=== PATIENT | male | born 1950 | race Caucasian/White ===

== ENCOUNTER 2024-02-11 09:53 | Outpatient (RCR) | payer MEDICARE, SELFPAY | END 2024-03-16 12:06 | disposition home or self-care (01) | LOC: OT 09:53 | PROVIDERS: PCP Family Medicine; Visit Provider Family Medicine | DX: I89.0 Lymphedema, not elsewhere classified (principal) | CPT/HCPCS: 97140; 97166; 97530 ==

== ENCOUNTER 2025-03-08 13:51 | Outpatient (RCR) | payer MEDICARE, SELFPAY | END 2025-06-02 13:58 | disposition home or self-care (01) | LOC: OT 13:51 | PROVIDERS: PCP Family Medicine; Visit Provider Nurse Practitioner Family | DX: I89.0 Lymphedema, not elsewhere classified (principal); L03.115 Cellulitis of right lower limb | CPT/HCPCS: 97140; 97167 ==

== ENCOUNTER 2025-08-12 14:03 | Inpatient (IN) | payer MEDICARE, SELFPAY ==
--- OUTSIDE RECORDS SUMMARY | 2025-08-09 13:30 | XMS_ITS | Encounter Summary ---
Author Organization [facility] Address [address] [facility] [place] [address] Care Team Providers Care Counselor Manager Name Role Phone Justino Zhang MD Primary Care Provider [phone] Reason for Visit * Reason Comments Foot Callouses Established patient presents today for concerns of continued pain with callus on left foot. Patient still taking antibiotics for cellulitis. Encounter Details Date Type Department Care Team (Late st Contact Info) Description 08/09/2025 1:30 PM EDT Office Visit [facility] [address] [place] [address] Zana Dahl, DPTaj [address] [place], [place] [id number] Plantar wart, left foot (Primary Dx); Acquired keratoderma; Left foot pain; Difficulty walking Social History Tobacco Use Types Packs/Day Years Used Date Smoking Tobacco: Never Smokeless Tobacco: Never Tobacco Cessation:Counseling Given: Not Answered Alcohol Use Standard Drinks/Week Comments Not Currently 0 (1 standard drink = 0.6 oz pur e alcohol) Sex and Gender Information Value Date Recorded Sex Assigned at Not on file Legal Sex Male 7:23 PM EDT Gender Identity Not on file Sexual Orientation Not on file documented as of this encounter Last Filed Vital Signs Vital Sign Reading Time Taken Comments Blood Pressure - - Pulse - - Temperature - - Respiratory Rate - - Oxygen Saturation - - Inhaled Oxygen Concentration - - Weight 169 kg (373 lb) 08/09/2025 1:46 PM EDT Height 182.9 cm (6') 08/09/2025 1:46 PM EDT Body Mass Index 50.59 08/09/2025 1:46 PM EDT documented in this encounter Patient Instructions * Patient Instructions* Zana Dahl DPM - 08/09/2025 1:30 PM EDT As noted documented in this encounter Progress Notes * Zana Dahl DPM - 08/09/2025 1:30 PM EDT Images from the original note were not included. Subjective Patient ID: Royce Arizmendi is a 75 y.o. male who presents for Foot Callouses (Established patient presents today for concerns of continued pain with callus on left foot. Patient still taking antibiotics for cellulitis. ). HPI Chief complaint: Progressively painful recurrent corn plantar surface of the left heel. About 2 weeks duration, impacting ADLs and his ability to walk comfortably; to the point of a notable limp. Denies precipitating injury or trauma. Denies bleeding or drainage. Progressive symptoms again described as like walking on a stone ; not quite as sharp as before. Denies streaking or constitutional symptoms. Review of Systems Constitutional: Negative for activity change and appetite change. Respiratory: Negative for chest tightness and shortness of breath. Cardiovascular: Negative for chest pain. Endocrine: Negative for cold intolerance and heat intolerance. Musculoskeletal: Positive for arthralgias and gait problem. Skin: Negative for color change and wound. Allergic/Immunologic: Negative for immunocompromised state. Neurological: Negative for weakness and numbness. Hematological: Does not bruise/bleed easily. Psychiatric/Behavioral: Negative for agitation and behavioral problems. Medications Current Outpatient Medications: atorvastatin (Lipitor) 10 MG tablet, Take 10 mg by mouth at bedtime, Disp: , Rfl: ferrous sulfate 325 (65 Fe) MG tablet, Take 325 mg by mouth at bedtime, Disp: , Rfl: furosemide (Lasix) 40 MG tablet, Take 40 mg by mouth Daily, Disp: , Rfl: nortriptyline (Pamelor) 75 MG capsule, Take 75 mg by mouth 1 (one) time each day at the same time, Disp: , Rfl: omeprazole (PriLOSEC) [address] capsule, Take 20 mg by mouth at bedtime, Disp: , Rfl: pramipexole (Mirapex) 1.5 MG tablet, Take 1.5 mg by mouth in the morning and 1.5 mg in the evening and 1.5 mg before bedtime., Disp: , Rfl: Allergies Cephalexin Past Surgical History Past Surgical History: Procedure Laterality Date CT ANGIOGRAM HEART CORONARY 05/25/2024 CT ANGIOGRAM TAVR 05/25/2024 CYST REMOVAL 02/10/2025 forehead HERNIA REPAIR 2020 IR JOINT ASPIRATION Left three KNEE ARTHROSCOPY W/ LASER 2007 TONSILLECTOMY TOTAL KNEE ARTHROPLASTY Right 07/14/2019 NWO TOTAL KNEE ARTHROPLASTY Left LT TKA- STEPANIC TOTAL KNEE ARTHROPLASTY Left 05/09/2024 Family History Family History Problem Relation Name Age of Onset Pulmonary fibrosis Mother Stroke Father Lung disease Other Objective Physical Exam Constitutional: General: He is not in acute distress. Appearance: He is obese. HENT: Head: Normocephalic and atraumatic. Cardiovascular: Pulses: Normal pulses. Comments: 3+ pitting edema bilateral lower extremities. Pulmonary: Effort: Pulmonary effort is normal. No respiratory distress. Musculoskeletal: Cervical back: Neck supple. Comments: No obvious muscle deficits. No significant pedal deformities. Skin: Capillary Refill: Capillary refill takes less than 2 seconds. 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 Focused exam left heel: Well-defined, prominent hyperkeratotic, nucleated PPD/verrucoid lesion; located central plantar surface of the heel. Acutely tender to direct and lateral pressure; locally inflamed, non-fluctuant. Unremarkable for foreign body, pigment or ulcerative changes. There remains diffuse keratosis along the plantar aspect of both heels. Neurological: Mental Status: He is alert. Comments: No loss of protective sensation, gross sensation intact. Psychiatric: Mood and Affect: Mood normal. Behavior: Behavior normal. Assessment/Plan No diagnosis found. 1. Symptomatic PPD/verrucoid lesion left heel as described. 2. Endoprosthesis bilateral knees. 3. Chronic, stable lymphedema both lower extremities. 4. Status post revisional endoprosthesis right knee. 5. Currently on oral antibiotic therapy for cellulitis of the lower extremities. Review of clinical findings, differential diagnosis of symptomatic lesion, etiology and contributing/aggravating factors, response to date, treatment strategy, rationale and objectives. Left foot: Aseptic technique: # 15 scalpel: Sharp debridement and enucleation of symptomatic PPD/verrucoid lesion as described. Dressing and pressure relief padding intact, clean and dry 3 days. Offloading: Modified Powerstep orthotic. Patient noted distinct relief upon leaving the clinic. Encourage compliance with Amlactin therapy and urea cream 40% daily. Discourage any barefoot walking. Follow up: 2 weeks. Procedure: LEFT FOOT: Aseptic technique: # 15 scalpel: Sharp debridement and enucleation of symptomatic PPD/verrucoid lesion; to the level of dermal bleeding; excising deeply nucleated porokeratotic core; reducing direct and indirect pressure and providing favorable symptom relief. Phenol hemostasis/chemo cautery. 60% salicylic acid packing followed by occlusive dressing with pressure relief padding. Well tolerated. This note was created with the assistance of a speech recognition program. While intending to generate a timely document that accurately reflects the content of the visit, no guarantee can be provided that every grammatical or spelling mistake has been or will be identified or corrected. Thank you for your understanding. Zana Dahl DPM documented in this encounter Plan of Treatment Upcoming Encounters Date Type Department Care Team (Late st Contact Info) Description 08/24/2025 1:45 PM EDT Office Visit [facility] [address] [place] [phone] Zana Dahl DPM [address] [place] [address] 09/19/2025 9:30 AM EST [facility] [address] [place] [phone] Zana Dahl DPM [address] [place], [place] [phone] documented as of this encounter Visit Diagnoses Diagnosis Plantar wart, left foot- Primary Plantar wart Acquired keratoderma Left foot pain Pain in soft tissues of limb Difficulty walking Difficulty in walking documented in this encounter Care Teams Counselor Manager Relationship Specialty Start Date End Date Justino Zhang MD [address] [place] [address] PCP - General Family Medicine 07/11/25 documented as of this encounter
[2025-08-12 14:07] VITALS: BP 136/86; PULSE 90; TEMP 36.6; O2SAT 96; BMI 48.8
--- NOTE | 2025-08-12 14:40 | XR_ITS ---
The [address] [address] Patient Name: AMY DELANEY MRN: [id number] date: 1950 Sex: M Assigned Patient Location: ED.MAIN Current Patient Location: ED.MAIN Accession/Order Number: [id number] Exam Date: 08/12/2025 15:15 Report Date: 08/12/2025 15:52 At the request of: EPHRAIM TRIVEDI Procedure: XR foot LT min 3V LEFT ANKLE - 3 views, left tib-fib 2 views, left foot 3 views CLINICAL HISTORY: Left leg cellulitis from knee to foot for one month COMPARISON: None FINDINGS: Left tib-fib: Diffuse soft tissue swelling. No soft tissue gas. Partially visualized left TKA without radiographic complication. Left ankle: Diffuse soft tissue swelling is present. Ankle mortise appears intact. No acute bony process. Left foot: Diffuse soft tissue swelling is present. No acute bony process is seen. Hallux valgus deformity of the first digit. There is associated degenerative change. Plantar spurring. XR/XR foot LT min 3V IMPRESSION: DIFFUSE SOFT TISSUE SWELLING INVOLVING THE LEFT LOWER LEG EXTENDING INTO THE FOOT CONSISTENT WITH THE HISTORY OF CELLULITIS. NO RADIOPAQUE FOREIGN BODY OR DEFINITIVE SOFT TISSUE GAS. NO ACUTE BONY PROCESS. Impression dictated by: Casey Grant Jr., D.O. 08/12/2025 3:52 PM Dictation Location: [place] [address] Electronically authenticated by: [id number] Y Date: 08/12/2025 15:52
--- NOTE | 2025-08-12 14:40 | XR_ITS ---
The [address] [address] Patient Name: AMY DELANEY MRN: [id number] date: 1950 Sex: M Assigned Patient Location: ED.MAIN Current Patient Location: ED.MAIN Accession/Order Number: [id number] Exam Date: 08/12/2025 15:15 Report Date: 08/12/2025 15:52 At the request of: EPHRAIM TRIVEDI Procedure: XR foot LT min 3V LEFT ANKLE - 3 views, left tib-fib 2 views, left foot 3 views CLINICAL HISTORY: Left leg cellulitis from knee to foot for one month COMPARISON: None FINDINGS: Left tib-fib: Diffuse soft tissue swelling. No soft tissue gas. Partially visualized left TKA without radiographic complication. Left ankle: Diffuse soft tissue swelling is present. Ankle mortise appears intact. No acute bony process. Left foot: Diffuse soft tissue swelling is present. No acute bony process is seen. Hallux valgus deformity of the first digit. There is associated degenerative change. Plantar spurring. XR/XR tibia fibula LT 2V IMPRESSION: DIFFUSE SOFT TISSUE SWELLING INVOLVING THE LEFT LOWER LEG EXTENDING INTO THE FOOT CONSISTENT WITH THE HISTORY OF CELLULITIS. NO RADIOPAQUE FOREIGN BODY OR DEFINITIVE SOFT TISSUE GAS. NO ACUTE BONY PROCESS. Impression dictated by: Casey Grant Jr., D.O. 08/12/2025 3:52 PM Dictation Location: [place] [address] Electronically authenticated by: [id number] Y Date: 08/12/2025 15:52
--- NOTE | 2025-08-12 14:40 | XR_ITS ---
The [address] [address] Patient Name: AMY DELANEY MRN: [id number] date: 1950 Sex: M Assigned Patient Location: ED.MAIN Current Patient Location: ED.MAIN Accession/Order Number: [id number] Exam Date: 08/12/2025 15:15 Report Date: 08/12/2025 15:52 At the request of: EPHRAIM TRIVEDI Procedure: XR foot LT min 3V LEFT ANKLE - 3 views, left tib-fib 2 views, left foot 3 views CLINICAL HISTORY: Left leg cellulitis from knee to foot for one month COMPARISON: None FINDINGS: Left tib-fib: Diffuse soft tissue swelling. No soft tissue gas. Partially visualized left TKA without radiographic complication. Left ankle: Diffuse soft tissue swelling is present. Ankle mortise appears intact. No acute bony process. Left foot: Diffuse soft tissue swelling is present. No acute bony process is seen. Hallux valgus deformity of the first digit. There is associated degenerative change. Plantar spurring. XR/XR ankle LT min 3V IMPRESSION: DIFFUSE SOFT TISSUE SWELLING INVOLVING THE LEFT LOWER LEG EXTENDING INTO THE FOOT CONSISTENT WITH THE HISTORY OF CELLULITIS. NO RADIOPAQUE FOREIGN BODY OR DEFINITIVE SOFT TISSUE GAS. NO ACUTE BONY PROCESS. Impression dictated by: Casey Grant Jr., D.O. 08/12/2025 3:52 PM Dictation Location: [place] [address] Electronically authenticated by: [id number] Y Date: 08/12/2025 15:52
--- NOTE | 2025-08-12 14:43 | ED_ITS ---
HPI - Extremity Problem General Chief complaint: Extremity Problem, Nontraumatic Stated complaint: Cellulitis Time Seen by Provider: 08/12/25 14:32 Source: patient Mode of arrival: Wheelchair History of Present Illness HPI Narrative: 75-year-old male with history of chronic lymphedema and recurrent lower extremity infections presents with increased pain, swelling, redness, and foul odor of the left lower extremity. He has an open wound on the plantar surface of the left heel after callus removal by his alteration hand 2 days ago. He reports worsening pain compared to baseline and foul-smelling drainage. He has been taking doxycycline for the past week without improvement. He denies fever, chills, chest pain, or shortness of breath. He is ambulatory but with increased pain. Pertinent PMH: Lymphedema (secondary to knee replacement), GERD, hyperlipidemia Related Data Home Medications ?Medication ?Instructions ?Recorded ?Confirmed atorvastatin 10 mg tablet 10 mg PO DAILY 08/12/2507/19 omeprazole 20 mg capsule,delayed 20 mg PO DAILY 08/12/25 release pramipexole 1.5 mg tablet,extended 3 mg PO DAILY 08/1208/12/25 release 24 hr (Mirapex ER) trazodone 150 mg tablet 150 mg PO DAILY 08/12/25 Allergies Allergy/AdvReac Type Severity Reaction Status Date / Time No Known Drug Allergies Allergy Verified 08/12/25 14:13 [facility] Medical History (Updated 08/12/25 @ 17:29 by SHIKHA BARTHOLOMEW) High cholesterol ?E78.00 - Pure hypercholesterolemia, unspecified (ICD-10) GERD (gastroesophageal reflux disease) ?K21.9 - Gastro-esophageal reflux disease without esophagitis (ICD-10) Restless leg ?G25.81 - Restless legs syndrome (ICD-10) Surgical History (Updated 08/12/25 @ 18:30 by Evette Sanchez) History of bilateral knee replacement ?Z96.653 - Presence of artificial knee joint, bilateral (ICD-10) Family History (Updated 08/12/25 @ 18:31 by Evette Sanchez) Father Family history of stroke Brother Family history of cancer Social History (Updated 08/12/25 @ 18:33 by Evette Sanchez) Within the past year, how often did you have a drink containing alcohol: never Score interpretation: A score less than 4 is consistent with normal alcohol consumption. Smoking status: Never smoker Non-prescribed substance use: denies use Highest level of school completed/degree received: high school graduate Are you now , , , , never or living with a partner: In a typical week, how many times do you talk on the telephone with family, friends, or neighbors: 3 or more times per week How often do you get together with friends or relatives: 3 or more times per week How often do you attend quaker or samaritan services: 4 or more times per year Do you belong to any clubs or organizations such as quaker groups unions, fraternal or athletic groups, or school groups: yes Total score: 4 Score interpretation: A score of greater than or equal to 2 indicates the lowest level of social isolation. Little interest or pleasure in doing things: not at all Feeling down, depressed, or hopeless: not at all Feel stressed/tense/nervous/anxious/difficulty sleeping: not at all Exam Narrative Exam Narrative: Physical Exam (Exam) General Appearance: obese male who is non toxic appearing. Alert and oriented in no acute distress. He does have a foul odor coming from his wound on his lower extremity. Cardiovascular: Regular rate and rhythm with a systolic murmur. Respiratory: Breath sounds normal, clear to auscultation. Abdomen: obese abdomen. Extremities: lymphedema bilaterally, LLE has multiple superficial area that are red. His lower extremity on the left side from mid tibial area go the foot is read and inflamed and appears cellulitic. Edema, pulses, temperature Neurological:No neurological deficiet Mental status: Normal Mentation, pleasant and interactive. Skin: cellulitic appearing LLE. Open wound on bottom of left foot secondary to a callus removal (culture obtained), foul smelling odor. Constitutional Vital Signs, click to edit/add: Last Vital Signs Temp 97.5 F L 08/12/25 18:34 Pulse 80 08/12/25 18:34 Resp 18 08/12/25 18:34 BP 139/90 08/12/25 18:34 Pulse Ox 97 08/12/25 18:34 O2 Del Method Room Air 08/12/25 18:34 Course Vital Signs Vital signs: Vital Signs Temperature 97.9 F 08/12/25 14:07 Pulse Rate 90 08/12/25 14:07 Respiratory Rate 20 08/12/25 14:07 Blood Pressure 136/86 08/12/25 14:07 Pulse Oximetry 96 08/12/25 14:07 Oxygen Delivery Method Room Air 08/12/25 14:07 Temperature 97.5 F L 08/12/25 18:34 Pulse Rate 80 08/12/25 18:34 Respiratory Rate 18 08/12/25 18:34 Blood Pressure 139/90 08/12/25 18:34 Pulse Oximetry 97 08/12/25 18:34 Oxygen Delivery Method Room Air 08/12/25 18:34 MDM - Extremity (Nontraumatic) MDM Narrative Medical decision making narrative: Diagnostics: * Labs: WBC 7.9, ESR 101 (elevated), CRP 2.18 (elevated) * Imaging: * X-ray LLE: Diffuse soft tissue swelling of LLE extending to foot, consistent with cellulitis. No radiopaque foreign body, no gas, no acute bony abnormality. * Venous Doppler: Negative for DVT ED Course: * IV Zosyn 3.375 g given * IV Vancomycin 1 g given * Pain controlled in ED * Dressing replaced after eval, will need changed inpatient course.Wound culture obtained. MDM: This is a 75-year-old male with chronic lymphedema presenting with worsening cellulitis of the left lower extremity and an open heel wound. He has failed outpatient doxycycline therapy. Labs show elevated inflammatory markers, but no leukocytosis. Imaging negative for gas or bony involvement, but clinical concern remains for deeper infection (possible early osteomyelitis). Given history of recurrent infections, lymphedema, open wound with foul odor, and failed outpatient treatment, IV broad-spectrum antibiotics were initiated and admission arranged for continued IV antibiotics, wound care, and close monitoring. Assessment/Diagnosis: * Cellulitis ? left lower extremity * Open wound ? plantar heel, left foot * Chronic lymphedema ? bilateral lower extremities * Failed outpatient treatment of cellulitis Plan / Disposition: * Admit to hospitalist service (Dr. Adame) in stable condition * Continue IV antibiotics (Zosyn + Vancomycin) * Wound care consult for evaluation of plantar wound * Monitor for signs of systemic infection or progression Lab Data Labs: Lab Results 08/12/25 Range/Units 14:45 WBC 7.9 (4.0-11.0) 10^3/uL RBC 4.55 L (4.70-6.10) 10^6/uL Hgb 12.3 L (14.0-18.0) g/dL Hct 38.7 L (42.0-54.0) % MCV 85.1 (80.0-94.0) fL MCH 27.0 (25.9-34.0) pg MCHC 31.8 (29.9-35.2) g/dL RDW 16.6 H (11.0-15.0) % Plt Count 240 (150-450) 10^3/uL MPV 8.2 L (9.5-13.5) fL Neut % (Auto) 73.5 (43.0-75.0) % Lymph % (Auto) 16.5 L (20.5-60.0) % [place] % (Auto) 6.0 (1.7-12.0) % Eos % (Auto) 3.1 (0.9-7.0) % Baso % (Auto) 0.5 (0.2-2.0) % Neut # (Auto) 5.8 (1.4-6.5) 10^3/uL Lymph # (Auto) 1.3 (1.2-3.8) 10^3/uL [place] # (Auto) 0.5 (0.3-0.8) 10^3/uL Eos # (Auto) 0.3 (0.0-0.7) 10^3/uL Baso # (Auto) 0.0 (0.0-0.1) 10^3/uL Abs Immat Gran (auto) 0.03 (0.00-0.03) 10^3/uL Imm/Tot Granulo (auto) 0.4 (0.0-0.5) % ESR 101 H (<=20) mm/hr PT 11.4 (9.0-11.6) sec INR 1.08 Sodium 135 L (136-145) mmol/L Potassium 4.1 (3.5-5.1) mmol/L Chloride 104 (98-107) mmol/L Carbon Dioxide 25.1 (21.0-32.0) mmol/L Anion Gap 10.0 BUN 18.0 (7.0-18.0) mg/dL Creatinine 0.95 (0.70-1.30) mg/dL Est GFR ( Amer) >60 (>=60 mL/min/1.73m^2) Est GFR (Non-Af Amer) >60 (>=60 mL/min/1.73m^2) BUN/Creatinine Ratio 18.9 Glucose 108 H (74-106) mg/dL Lactate 1.0 (0.4-2.0) mmol/L Calcium 9.1 (8.5-10.1) mg/dL C-Reactive Protein 2.18 H (<=0.50) mg/dL Discharge Plan Discharge Chief Complaint: Extremity Problem, Nontraumatic Clinical Impression: Cellulitis, Failure of outpatient treatment, Open wound of left foot with complication Patient Disposition: Admitted as Observation Time of Disposition Decision: 17:29 Condition: Good Discharge Date/Time: 08/12/25 18:24
[2025-08-12 14:51] LABS: Hematocrit 38.7 % (42.0-54.0); Hemoglobin 12.3 g/dL (14.0-18.0); Immature Granulocytes Abs Auto 0.03 10^3/uL (0.00-0.03); Immature Granulocytes Pct Auto 0.4 % (0.0-0.5); Lymphocytes Absolute Auto 1.3 10^3/uL (1.2-3.8); Mean Corpuscular HGB Conc 31.8 g/dL (29.9-35.2); Mean Corpuscular Hemoglobin 27.0 pg (25.9-34.0); Mean Corpuscular Volume 85.1 fL (80.0-94.0); Platelet Count 240 10^3/uL (150-450); Red Blood Count 4.55 10^6/uL (4.70-6.10); White Blood Count 7.9 10^3/uL (4.0-11.0)
[2025-08-12 15:09] LABS: Anion Gap 10.0; Blood Urea Nitrogen 18.0 mg/dL (7.0-18.0); Calcium 9.1 mg/dL (8.5-10.1); Carbon Dioxide 25.1 mmol/L (21.0-32.0); Chloride 104 mmol/L (98-107); Estimated GFR (African America >60 (>=60 mL/min/1.73m^2); Estimated GFR (Non-African Ame >60 (>=60 mL/min/1.73m^2); Glucose 108 mg/dL (74-106); INR 1.08; Lactate/Lactic Acid 1.0 mmol/L (0.4-2.0); Potassium 4.1 mmol/L (3.5-5.1); Prothrombin Time 11.4 sec (9.0-11.6); Sodium 135 mmol/L (136-145)
[2025-08-12] MEDS: PIPERACILLIN SODIUM/TAZOBACTAM 3.375 GM in 0.9 % SODIUM CHLORIDE 50 ML IV ×2 (15:18→22:01)
--- OUTSIDE RECORDS SUMMARY | 2025-08-12 15:34 | XMS_ITS | Encounter Summary ---
Author Organization [facility] [employer] [facility] Address [id number] [place] [address] Care Team Providers Care Coal Sample Tester Name Role Phone Justino Zhang MD Primary Care Provider [phone] Encounter Details Date Type Department Care Team (Late st Contact Info) Description 03/16/2021 Documentation [facility] [address] [phone] Ashley Bertrand LPN Social History Tobacco Use Types Packs/Day Years Used Date Smoking Tobacco: Never Smokeless Tobacco: Never Alcohol Use Standard Drinks/Week Comments No 0 (1 standard drink = 0.6 oz pur e alcohol) Social Connection and Isolat ion Panel [NHANES] Answer Date Recorded Frequency of Communication w ith Friends and Family Twice a week 12/05/2019 Frequency of Social Gatherin gs with Friends and Family Once a week 12/05/2019 Attends Judaism Services More than 4 times per year 12/05/2019 Active Member of Clubs or Organizations Yes 12/05/2019 Attends Club or Organization Meetings Never 12/05/2019 Marital Status 12/05/2019 AUDIT-C Answer Date Recorded Frequency of Alcohol Consumption Monthly or less 12/05/2019 Average Number of Drinks 1 or 2 020 Frequency of Binge Drinking Never 11/17 Overall Financial Resource Strain (CARDIA) Answe r Date Recorded Difficulty of Paying Living Expenses Not hard at all 12/05/2019 PHQ-2 Answer Date Recorded Total Score 0 01/29/2021 [facility] - Occupational Stress Questionnaire Answer Date Recorded Feeling of Stress Not at all 12/05/2019 Exercise Vital Sign Answer Date Recorde d Days of Exercise per Week 0 days 2019 Minutes of Exercise per Session 0 min 12/05/2019 PRAPARE - Transportation Answer Date Re corded Lack of Transportation (Medical) No 12/05/2019 Lack of Transportation (Non-Medical) No 12/05/2019 Childcare Answer Date Recorded Childcare No 12/05/2019 Employment Answer Date Recorded Employment No 12/05/2019 Purpose - Life Answer Date Recorded Purpose and direction in life Unknown Education Answer Date Recorded What is the highest level of school you have completed or the highest degree you have received? GED or equivalent Sex and Gender Information Value Date Recorded Sex Assigned at Not on file Legal Sex Male 11:29 AM EDT Gender Identity Not on file Sexual Orientation Not on file COVID-19 Exposure Response Date Recorded In the last month, have you been in contact with someone who was confirmed or suspected to have Coronavirus / COVID-19? No / Unsure 03/14/2021 11:24 AM EDT documented as of this encounter Plan of Treatment Upcoming Encounters Date Type Department Care Team (Late st Contact Info) Description 09/13/2025 11:30 AM EDT Office Visit [facility] [address] [place] [address] Saida Aggarwal MD [address] [facility] [address] [place] [address] 10/24/2025 3:00 PM EST Office Visit [facility] [address] [place] [phone] [place] [address] [place] [address] documented as of this encounter Visit Diagnoses Not on filedocumented in this encounter Additional Health Concerns Assessment Noted Time PHQ-9 Depression Total Score: 0 01/30/20 21 1:00 PM EDT A Body Mass Index follow-up plan has been documented for the patient 07/31/2020 1:32 PM EDT documented as of this encounter Care Teams Coal Sample Tester Relationship Specialty Start Date End Date Justino Zhang MD [address] [place] [address] PCP - General Internal Medicine 02/21/25 ALEJANDRA Pierre, RN [facility] 04/07/24 documented as of this encounter
--- OUTSIDE RECORDS SUMMARY | 2025-08-12 15:34 | XMS_ITS | Encounter Summary ---
Author Organization [facility] [place] Sys tem Address [facility] [place]-[id number] [address] [place] [address] Care Team Providers Care Transfusion Nurse Name Role Phone Justino Zhang MD Primary Care Provider [phone] Encounter Details Date Type Department Care Team (Late st Contact Info) Description 05/23/2023 Documentation [facility] [address] [place] [phone] Ashley Bertrand LPN Social History Tobacco Use [...] and Family Once a week 12/05/2019 Attends Yazidi Services More than 4 times per year [...] PHQ-2 Answer Date Recorded Total Score 0 05/14/2023 [facility] [place] of Occupat ional Health - Occupational Stress [...] on file documented as of this encounter Plan of Treatment Upcoming Encounters Date Type Department Care Team (Late st Contact Info) Description 09/13/2025 11:30 AM EDT Office Visit [facility] [address] [place] [phone] Saida Aggarwal MD [address] [facility] [address] [address] [place], [place] [phone] 10/24/2025 3:00 PM EST Office Visit [facility] [address] [place] [phone] Justino Zhang MD [facility] [place], [place] [phone] documented as of this encounter Visit Diagnoses Not on filedocumented in this encounter Additional Health Concerns Assessment Noted Time PHQ-9 Depression Total Score: 0 05/14/20 23 7:00 AM EDT A Body Mass Index follow-up plan has been documented for the patient 01/29/2022 11:45 AM EDT documented as of this encounter Care Teams Transfusion Nurse Relationship Specialty Start Date End Date Justino Zhang MD [address] [place] [address] PCP - General Internal Medicine 02/21/25 PETROS PierreN, RN [facility] Nurse - [employer] 04/07/24 documented as of this encounter
--- OUTSIDE RECORDS SUMMARY | 2025-08-12 15:34 | XMS_ITS | Encounter Summary ---
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 No 07/30/2024 Social Connection and Isolat ion Panel [NHANES] Answer Date Recorded Frequency of Communication w ith Friends and Family Twice a week 12/05/2019 Frequency of Social Gatherin gs with Friends and Family Once a week 12/05/2019 Attends Moravian Services More than 4 times per year [...] PHQ-2 Answer Date Recorded Total Score 0 07/25/2025 [facility] - Occupational Stress Questionnaire Answer Date Recorded Feeling of Stress Not at all 12/05/2019 Exercise Vital Sign Answer Date Recorde d Days of Exercise per Week 0 days 2019 Minutes of Exercise per Session 0 min 12/05/2019 PRAPARE - Transportation Answer Date Re corded In the past 12 months, has l ack of transportation kept you from medical appointments or from getting medications? No 07/18 In the past 12 months, has l ack of transportation kept you from meetings, work, or from getting things needed for daily living? No 07/30/2024 Housing Instability Answer Date Recorde d Are you worried or concerned that in the next two months you may not have stable housing that you own, rent or stay in as a part of a household? No 07/30/2024 Childcare Answer Date Recorded Childcare No 12/05/2019 Employment Answer Date Recorded Employment No 12/05/2019 Hunger Screening Answer Date Recorded Within the past 12 months we worried whether our food would run out before we got money to buy more. Never True 07/25/2025 Within the past 12 months th e food we bought just didn't last and we didn't have money to get more. Never True 07/25/2025 Purpose - Life Answer Date Recorded Purpose [...] Office Visit [facility] [address] [place] [address] Saida Aggarwal MD [address] [facility] [address] [place], [place] [phone] 10/24/2025 3:00 PM EST Office Visit [facility] [address] [place] [phone] Justino Zhang MD [address] [place] [address] [phone] documented as of this encounter Goals Goal Patient Goal Type Associated Problems Recent Progress Patient-Stated? Author home General Yes Renuka Levy LSW Note: Evaluation of progress towards goal: feeling better, hopes to DC to home today documented as of this encounter Visit Diagnoses Diagnosis Insomnia due to medical condition- Primary Organic insomnia, unspecified documented in this encounter Additional Health Concerns Assessment Noted Time PHQ-9 Depression Total Score: 0 07/25/20 10:13 AM EDT A Body Mass Index follow-up plan has been documented for the patient 07/25/2025 10:32 AM EDT documented as of this encounter Care Teams 3D Animator Relationship Specialty Start Date End Date Justino Zhang MD [address] [place] [address] PCP - General Internal Medicine 02/21/25 ALEJANDRA Pierre, RN [facility] 04/07/24 documented as of this encounter
--- OUTSIDE RECORDS SUMMARY | 2025-08-12 15:34 | XMS_ITS | Encounter Summary ---
Author Organization [facility] 19 s tem Address [facility]-[id number] [address] [place] [address] Care Team Providers Care Transmission Mechanic Name Role Phone Justino Zhang MD Primary Care Provider [phone] Encounter Details Date Type Department Care Team (Late Contact Info) Description 08/03/2025 Results Follow-Up [facility] [address] [place] [phone] Justino Zhang MD [address] [place] [address] Multiple labs Social History Tobacco Use Types Packs/Day Years Used Date Smoking Tobacco: Never Smokeless Tobacco: Never Alcohol Use Standard Drinks/Week Comments No 0 (1 standard drink = 0.6 oz pur e alcohol) [facility] Utilities Answer Date Recorded In the past 12 months has [employer], gas, oil, or water [employer] threatened to shut off services in your home? No 07/30/2024 Social Connection and Isolat ion Panel [NHANES] Answer Date Recorded Frequency of Communication w ith Friends and Family Twice a week 12/05/2019 Frequency of Social Gatherin gs with Friends and Family Once a week 12/05/2019 Attends Alevism Services More than 4 times per year [...] Answer Date Recorded Total Score 0 07/25/2025 [facility] of Occupat ional Health - Occupational Stress [...] Visit [facility] [address] [place] [address] Saida Aggarwal MD [address] [facility] [address] [place], [place] [phone] 10/24/2025 3:00 PM EST Office Visit [facility] [address] [place] [phone] Justino Zhang MD [address] [place] [address] documented as of this encounter Goals Goal [...] documented as of this encounter Care Teams Transmission Mechanic Relationship Specialty Start Date End Date Justino Zhang MD [address] [place] [address] PCP - General Internal Medicine 02/21/25 ALEJANDRA Pierre, RN [facility] Nurse - [facility] 04/07/24 documented as of this encounter
--- OUTSIDE RECORDS SUMMARY | 2025-08-12 15:34 | XMS_ITS | Encounter Summary ---
Author Organization [employer] Sys tem Address [facility]-[id number] [address] [place] [address] Care Team Providers Care Guest Services Attendant Name Role Phone Justino Zhang MD Primary Care Provider [phone] Reason for Visit * Reason Comments Med Refill Encounter Details Date Type Department Care Team (Late st Contact Info) Description 06/16/2023 Refill [facility] [address] [place] [phone] Quincy Blank MD [address] Provider retired 02/15/25 [place], [place] [phone] Social History Tobacco Use Types Packs/Day Years [...] and Family Once a week 12/05/2019 Attends Roman Catholic Services More than 4 times per year [...] PHQ-2 Answer Date Recorded Total Score 0 06/11/2023 [facility] of Occupat ional Health - Occupational Stress [...] on file documented as of this encounter Miscellaneous Notes * Telephone Encounter - Asia Olson LPN - 06/16/2023 4:20 PM EDT Dain requesting refill of Atorvastatin documented in this encounter Plan of Treatment Upcoming Encounters Date Type Department Care Team (Late st Contact Info) Description 09/13/2025 11:30 AM EDT Office Visit [facility] [address] [place] [address] Saida Aggarwal MD [address] [facility] [address] [place] [address] 10/24/2025 3:00 PM EST Office Visit [facility] [address] [place] [phone] Justino Zhang MD [address] [place] [address] documented as of this encounter Visit Diagnoses Not on filedocumented in this encounter Additional Health Concerns Assessment Noted Time PHQ-9 Depression Total Score: 0 06/11/20 23 7:00 AM EDT A Body Mass Index follow-up plan has been documented for the patient 01/29/2022 11:45 AM EDT documented as of this encounter Care Teams Guest Services Attendant Relationship Specialty Start Date End Date Justino Zhang MD [address] [place], [place] [phone] PCP - General Internal Medicine 02/21/25 ALEJANDRA Pierre, RN [facility] 04/07/24 documented as of this encounter
--- OUTSIDE RECORDS SUMMARY | 2025-08-12 15:34 | XMS_ITS | Encounter Summary ---
[facility] Address [facility]-[id number] [address] [place] [address] Care Team Providers Care Cook Frozen Dessert Name Role Phone Justino Zhang MD Primary Care Provider [phone] Encounter Details Date Type Department Care Team (Late st Contact Info) Description 02/13/2024 Orders Only [facility] [address] [facility] [phone] Asia Olson LPN Lymphedema of both lower extremities Social History Tobacco Use Types Packs/Day Years [...] and Family Once a week 12/05/2019 Attends Confucianism Services More than 4 times per year [...] PHQ-2 Answer Date Recorded Total Score 0 01/26/2024 [facility] of Occupat ional Health - Occupational Stress [...] got money to buy more. Never True 01/26/2024 Within the past 12 months th e food we bought just didn't last and we didn't have money to get more. Never True 01/26/2024 Purpose - Life Answer Date Recorded Purpose [...] Upcoming Encounters Date Type Department Care Team ([facility] st Contact Info) Description 09/13/2025 11:30 AM EDT Office Visit [facility] [address] [place] [address] Saida Aggarwal MD [address] [facility] [address] [place] [address] 10/24/2025 3:00 PM EST Office Visit [facility] [address] [place] [phone] Justino Zhang MD [address] [place] [address] documented as of this encounter Procedures Procedure Name Priority Date/Time Associated Diagnosis Comments AMB REFERRAL TO LYMPHEDEMA CLINIC Routine 02/11/2024 Lymphedema of both lower extremities documented in this encounter Results * Ambulatory referral to Lymphedema Clinic ([facility]) (02/11/2024) us Quincy Blank MD OUTPATIENT REFERRAL ORDERABL ES Final Result MANUALLY TRANSCRIBED RESULTS documented in this encounter Visit Diagnoses Diagnosis Lymphedema of both lower extremities documented in this encounter Additional Health Concerns Assessment Noted Time PHQ-9 Depression Total Score: 0 01/26/20 24 7:00 AM EDT A Body Mass Index follow-up plan has been documented for the patient 01/29/2022 11:45 AM EDT documented as of this encounter Care Teams Cook Frozen Dessert Relationship Specialty Start Date End Date Justino Zhang MD [address] [place] [address] PCP - General Internal Medicine 02/21/25 ALEJANDRA Pierre, RN [facility] Nurse - [employer] 04/07/24 documented as of this encounter
--- OUTSIDE RECORDS SUMMARY | 2025-08-12 15:34 | XMS_ITS | Encounter Summary ---
Author Organization [employer] Sys tem Address [facility]-[id number] [address] [place] [address] Care Team Providers Care Hand Ii Thermal Cutter Name Role Phone Justino Zhang MD Primary Care Provider Encounter Details Date Type Department Care Team (Late Contact Info) Description 03/01/2025 Telephone [facility] [address] [place] [phone] Marilee Michelle, COLLAR STAY FUSER TENDER-OSS ARCHITECT [address] [place], [place] [phone] Social History Tobacco Use Types Packs/Day Years Used Date Smoking Tobacco: Never Smokeless Tobacco: Never Alcohol Use Standard Drinks/Week Comments No 0 (1 standard drink = 0.6 oz pur e alcohol) [facility] Utilities Answer Date Recorded In the past 12 months has e [employer], gas, oil, or water [employer] threatened to shut off services in your home? No 07/30/2024 Social Connection and Isolat ion Panel [NHANES] Answer Date Recorded Frequency of Communication w ith Friends and Family Twice a week 12/05/2019 Frequency of Social Gatherin gs with Friends and Family Once a week 12/05/2019 Attends Hoahaoism Services More than 4 times per year [...] PHQ-2 Answer Date Recorded Total Score 0 02/21/2025 [facility] of Occupat ional [facility] - Occupational Stress Questionnaire Answer Date Recorded [...] got money to buy more. Never True 02/28/2025 Within the past 12 months th e food we bought just didn't last and we didn't have money to get more. Never True 02/28/2025 Purpose - Life Answer Date Recorded Purpose [...] encounter Miscellaneous Notes * Telephone Encounter - Kait Watters - 03/01/2025 4:12 PM EDT Patient called stating that he called the lymphedema clinic in [place] to set up an appointment. They are needing a referral for him to go back for an appointment documented in this encounter Plan of Treatment Upcoming Encounters Date Type Department Care Team (Late st Contact Info) Description 09/13/2025 11:30 AM EDT Office Visit [facility] [address] [place] [phone] Saida Aggarwal MD [address] [facility] [address] [place] [address] 10/24/2025 3:00 PM EST Office Visit [facility] [address] [facility] [place] [phone] Justino Zhang MD [address] [place] [phone] documented as of this encounter Goals Goal Patient Goal Type Associated Problems Recent Progress Patient-Stated? Author home General Yes Renuka Levy LSW Note: Evaluation of progress towards goal: feeling better, hopes to DC to home today documented as of this encounter Visit Diagnoses Not on filedocumented in this encounter Additional Health Concerns Assessment Noted Time PHQ-9 Depression Total Score: 0 02/22/20 25 3:01 PM EDT A Body Mass Index follow-up plan has been documented for the patient 02/21/2025 3:17 PM EDT documented as of this encounter Care Teams Hand Ii Thermal Cutter Relationship Specialty Start Date End Date Justino Zhang MD [facility] [place] [address] PCP - General Internal Medicine 02/21/25 ALEJANDRA Pierre, RN [facility] 04/07/24 documented as of this encounter
--- OUTSIDE RECORDS SUMMARY | 2025-08-12 15:34 | XMS_ITS | Encounter Summary ---
Author Organization [employer] tem Address [facility]-[id number] [address] [place] [address] Care Team Providers Care Cloth Bleaching Range Tender Name Role Phone Justino Zhang MD Primary Care Provider Reason for Referral * Consultation (Routine) - Closed Specialty Diagnoses / Procedures Referred By Cici fournier Referred To Contact Pulmonary Disease / Pulmonary Medicine Diagnoses STEFF (obstructive sleep apnea) Restrictive lung disease Quincy Blank MD [address] Provider retired 02/15/25 [place] [address] Phone: tel: fax: Diandra Knapp DO [address] [place] [address] Phone: tel: fax: Referral ID Status Reason Start Date Expiration Date V isits Requested Visits Authorized [id number] Closed Specialty Services Required 06/18/2023 06/17/2024 1 1 Encounter Details Date Type Department Care Team (Late st Contact Info) Description 06/18/2023 Telephone [facility] [place] [phone] Quincy Blank MD [address]. Provider retired 02/15/25 [place], [place] [phone] Social History Tobacco Use Types Packs/Day Years [...] and Family Once a week 12/05/2019 Attends Jew Services More than 4 times per year [...] Answer Date Recorded Total Score 0 06/11/2023 [facility] of Occupat ional Health - Occupational Stress [...] encounter Miscellaneous Notes * Telephone Encounter - Quincy Blank MD - 06/18/2023 1:49 PM EDT ----- Message from Asia Olson LPN sent at 06/18/2023 1:29 PM EDT ----- Patient notified of test results and verbalizes understanding. He is interested in seeing Dice Maker * Telephone Encounter - Quincy Blank MD - 06/18/2023 1:49 PM EDT Referral in place please arrange documented in this encounter Plan of Treatment Upcoming Encounters Date Type Department Care Team (Late st Contact Info) Description 09/13/2025 11:30 AM EDT Office Visit [facility] [address] [facility] [place] [phone] Saida Aggarwal MD [address] [facility] [address] [place] [address] 10/24/2025 3:00 PM EST Office Visit [facility] [address] [place] [phone] Justino Zhang MD [address] [place] [address] Scheduled Referrals Name Type Priority Associated Diagnoses Order Schedule Referral to [facility] - [place], [place] Outpatient Referral Routine STEFF (obstructive sleep apnea) Restrictive lung disease 1 Occurrences starting 06/18/2023 until 06/18/2024 documented as of this encounter Visit Diagnoses Diagnosis Restrictive lung disease- Primary Other diseases of lung, not elsewhere classified STEFF (obstructive sleep apnea) Obstructive sleep apnea (adult) (pediatric) Non morbid obesity documented in this encounter Additional Health Concerns Assessment Noted Time PHQ-9 Depression Total Score: 0 06/11/20 23 7:00 AM EDT A Body Mass Index follow-up plan has been documented for the patient 01/29/2022 11:45 AM EDT documented as of this encounter Care Teams Cloth Bleaching Range Tender Relationship Specialty Start Date End Date Justino Zhang MD [address] [place] [address], [place] [address] PCP - General Internal Medicine 02/21/25 ALEJANDRA Pierre, RN [facility] Nurse - [employer] 04/07/24 documented as of this encounter
--- OUTSIDE RECORDS SUMMARY | 2025-08-12 15:34 | XMS_ITS | Encounter Summary ---
Author [facility] Address [facility][id number] [address] [place] [address] Care Team Providers Care Special Delivery Mail Carrier Name Role Phone Justino Zhang MD Primary Care Provider [phone] Reason for Visit * Reason Onset Date Comments Med Refill 09/26/2021 Encounter Details Date Type Department Care Team (Late st Contact Info) Description 09/26/2021 Refill [facility] [address] [place] [phone] Asia Olson LPN Social History Tobacco Use Types Packs/Day [...] and Family Once a week 12/05/2019 Attends Quaker Services More than 4 times per year [...] PHQ-2 Answer Date Recorded Total Score 0 08/27/2021 [facility] [place] of Occupat ional Health - Occupational Stress [...] have Coronavirus / COVID-19? No / Unsure 09/24/2021 6:37 AM EST documented as of this encounter Plan of Treatment Upcoming Encounters Date Type Department Care Team ([facility] st Contact Info) Description 09/13/2025 11:30 AM EDT Office Visit [facility] [address] [place] [address] Saida Aggarwal MD [address] [facility] [address] [place] [address] 10/24/2025 3:00 PM EST Office Visit [facility] [address] [place] [phone] Justino Zhang MD [address] [place] [address] documented as of this encounter Visit Diagnoses Not on filedocumented in this encounter Additional Health Concerns Assessment Noted Time PHQ-9 Depression Total Score: 0 08/27/20 21 9:00 AM EDT A Body Mass Index follow-up plan has been documented for the patient 07/31/2020 1:32 PM EDT documented as of this encounter Care Teams Special Delivery Mail Carrier Relationship Specialty Start Date End Date Justino Zhang MD [address] [place] [phone] PCP - General Internal Medicine 02/21/25 ALEJANDRA Pierre, RN [facility] - [facility] 04/07/24 documented as of this encounter
--- OUTSIDE RECORDS SUMMARY | 2025-08-12 15:34 | XMS_ITS | Encounter Summary ---
Author Organization [employer] Address [facility] [id number] [address] [place] [address] Care Team Providers Care Longshore Equipment Operator Name Role Phone Justino Zhang MD Primary Care Provider [phone] Encounter Details Date Type Department Care Team (Late st Contact Info) Description 08/03/2025 Orders Only [facility] [address] [place] [phone] External, Scanning Provider Social History Tobacco Use Types Packs/Day Years Used Date Smoking Tobacco: Never Smokeless Tobacco: Never Alcohol Use Standard Drinks/Week Comments No 0 (1 standard drink = 0.6 oz pur e alcohol) [facility] Utilities Answer Date Recorded In the past 12 months has [employer], gas, oil, or water company threatened to shut off services in your home? No 07/30/2024 Social Connection and Isolat ion Panel [NHANES] Answer Date Recorded Frequency of Communication w ith Friends and Family Twice a week 12/05/2019 Frequency of Social Gatherin gs with Friends and Family Once a week 12/05/2019 Attends Jehovah'S Witness Services More than 4 times per year [...] Answer Date Recorded Total Score 0 07/25/2025 [facility] [place] of Occupat ional Health - Occupational Stress [...] Upcoming Encounters Date Type Department Care Team ([facility] st Contact Info) Description 09/13/2025 11:30 AM EDT Office Visit [facility] [address] [facility] [place] [address] Saida Aggarwal MD [address] [facility] [address] [place] [address] 10/24/2025 3:00 PM EST Office Visit [facility] [address] [place] [phone] [place] [address] [place] [address] [phone] documented as of this encounter Goals Goal Patient Goal Type Associated Problems Recent Progress Patient-Stated? Author home General Yes Renuka Levy LSW Note: Evaluation of progress towards goal: feeling better, hopes to DC to home today documented as of this encounter Procedures Procedure Name Priority Date/Time Associated Diagnosis Comments MULTIPLE LABS Routine 07/20/2025 documented in this encounter Results * Multiple labs (07/20/2025) 07/20/2025 us Scanning Provider External [facility] Final Result MANUALLY TRANSCRIBED RESULTS documented in this encounter Visit Diagnoses Not on filedocumented in this encounter Additional Health Concerns Assessment Noted Time PHQ-9 Depression Total Score: 0 07/25/20 25 10:13 AM EDT A Body Mass Index follow-up plan has been documented for the patient 07/25/2025 10:32 AM EDT documented as of this encounter Care Teams Longshore Equipment Operator Relationship Specialty Start Date End Date Justino Zhang MD [address] [place] [address] PCP - General Internal Medicine 02/21/25 Luba Sanz, PETROSN, RN CCM [facility] 04/07/24 documented as of this encounter
--- OUTSIDE RECORDS SUMMARY | 2025-08-12 15:34 | XMS_ITS | Encounter Summary ---
Author Organization [facility] Address [id number] [address] [place] [address] Care Team Providers Care Steel Fabricator Name Role Phone Justino Zhang MD Primary Care Provider [phone] Encounter Details Date Type Department Care Team (Late st Contact Info) Description 03/28/2023 Documentation [facility] [address] [place] [phone] Ashley Bertrand LPN Social History Tobacco Use [...] and Family Once a week 12/05/2019 Attends Temple Services More than 4 times per year [...] PHQ-2 Answer Date Recorded Total Score 0 12/23/2022 [facility] [place] of Occupat ional Health - Occupational Stress [...] Office Visit [facility] [address] [place] [address] Saida Aggarwal MD [address] [facility] [address] [place], [place] [phone] 10/24/2025 3:00 PM EST Office Visit [facility] [address] [place] [phone] Justino Zhang MD [address] [place] [address] [phone] documented as of this encounter Visit Diagnoses Not on filedocumented in this encounter Additional Health Concerns Assessment Noted Time PHQ-9 Depression Total Score: 0 12/23/19 23 7:00 AM EST A Body Mass Index follow-up plan has been documented for the patient 01/29/2022 11:45 AM EDT documented as of this encounter Care Teams Steel Fabricator Relationship Specialty Start Date End Date Justino Zhang MD [address] [place] [address] PCP - General Internal Medicine 02/21/25 PETROS PierreN, RN [facility] Nurse - [facility] 04/07/24 documented as of this encounter
--- OUTSIDE RECORDS SUMMARY | 2025-08-12 15:34 | XMS_ITS | Encounter Summary ---
Author Organization [address] s tem Address [facility] [id number] [address] [place] [address] Care Team Providers Care Wind Up Worker Name Role Phone Justino Zhang MD Primary Care Provider [phone] Encounter Details Date Type Department Care Team (Late st Contact Info) Description 07/29/2025 Orders Only [facility] [address] [place] [phone] Ev Headley CMA Lymphedema of both lower extremities; Cellulitis of right lower leg; Cellulitis of left lower leg Social History Tobacco Use Types Packs/Day Years Used Date Smoking Tobacco: Never Smokeless Tobacco: Never Alcohol Use Standard Drinks/Week Comments No 0 (1 standard drink = 0.6 oz pur e alcohol) [facility] Utilities Answer Date Recorded In the past 12 months has [employer], gas, oil, or water [employer] threatened to shut off services in your home? No 07/30/2024 Social Connection and Isolat ion Panel [NHANES] Answer Date Recorded Frequency of Communication w ith Friends and Family Twice a week 12/05/2019 Frequency of Social Gatherin gs with Friends and Family Once a week 12/05/2019 Attends Mu-Ism Services More than 4 times per year [...] Answer Date Recorded Total Score 0 07/25/2025 [facility] of Occupat ional Health - Occupational Stress [...] Office Visit [facility] [address] [place] [address] Saida Aggarwal MD [address] [facility] [address] [place] [address] 10/24/2025 3:00 PM EST Office Visit [facility] [address] [place] [phone] Justino Zhang MD [address] [place] [address] documented as of this encounter Goals Goal Patient Goal Type Associated Problems Recent Progress Patient-Stated? Author home General Yes Renuka Levy LSW Note: Evaluation of progress towards goal: feeling better, hopes to DC to home today documented as of this encounter Procedures Procedure Name Priority Date/Time Associated Diagnosis Comments BASIC METABOLIC PANEL Routine 07/20/2025 Lymphedema of both lower extremities Cellulitis of right lower leg Cellulitis of left lower leg documented in this encounter Results * Basic Metabolic Panel (07/20/2025) Blood Venous blood / Unknown 07/20/2025 Marilee Michelle PHARMACOLOGY ASSOCIATE-NOZZLE AND SLEEVE WORKER LAB BLOOD ORDERABLES Final Result MANUALLY TRANSCRIBED RESULTS documented in this encounter Visit Diagnoses Diagnosis Lymphedema of both lower extremities Cellulitis of right lower leg Cellulitis of left lower leg documented in this encounter Additional Health Concerns Assessment Noted Time PHQ-9 Depression Total Score: 0 07/25/20 10:13 AM EDT A Body Mass Index follow-up plan has been documented for the patient 07/25/2025 10:32 AM EDT documented as of this encounter Care Teams Wind Up Worker Relationship Specialty Start Date End Date Justino Zhang MD [address] [place] [address] PCP - General Internal Medicine 02/21/25 ALEJANDRA Pierre, RN CCM Nurse - [facility] 04/07/24 documented as of this encounter
--- OUTSIDE RECORDS SUMMARY | 2025-08-12 15:34 | XMS_ITS | Encounter Summary ---
Author Organization [facility] Sys tem Address [facility] [id number] [address] [place] [address] Care Team Providers Care Well Drill Operator Rotary Drill Name Role Phone Justino Zhang MD Primary Care Provider Encounter Details Date Type Department Care Team (Late st Contact Info) Description 07/10/2023 Documentation [facility] [address] [place] [phone] Ashley Bertrand LPN Social History Tobacco Use [...] and Family Once a week 12/05/2019 Attends Religion Services More than 4 times per year [...] Answer Date Recorded Total Score 0 06/11/2023 [facility] [place] of Occupat ional Health - Occupational Stress [...] Office Visit [facility] [address] [facility] [place] [phone] Saida Aggarwal MD [address] [facility] [address] [place], [place] [phone] 10/24/2025 3:00 PM EST Office Visit [facility] [address] [place] [phone] Justino Zhang MD [facility] [place], [place] [phone] documented as of this encounter Visit Diagnoses Not on filedocumented in this encounter Additional Health Concerns Assessment Noted Time PHQ-9 Depression Total Score: 0 06/11/20 23 7:00 AM EDT A Body Mass Index follow-up plan has been documented for the patient 01/29/2022 11:45 AM EDT documented as of this encounter Care Teams Well Drill Operator Rotary Drill Relationship Specialty Start Date End Date Justino Zhang MD [address] [place] [address] PCP - General Internal Medicine 02/21/25 PETROS PierreN, RN [facility] Nurse - [facility] 04/07/24 documented as of this encounter
--- OUTSIDE RECORDS SUMMARY | 2025-08-12 15:34 | XMS_ITS | Encounter Summary ---
Author Organization [email or web address] Address [facility] [id number] [address] [place] [address] Care Team Providers Care Asbestos Worker Helper Name Role Phone Justino Zhang MD Primary Care Provider [phone] Encounter Details Date Type Department Care Team (Late st Contact Info) Description 06/18/2023 Telephone [facility] [address] [phone] Awa Hanson RN Social History Tobacco Use Types Packs/Day Years [...] and Family Once a week 12/05/2019 Attends [employer] Services More than 4 times per year [...] Answer Date Recorded Total Score 0 06/11/2023 [facility] [place] of Occupat ional Health - Occupational Stress [...] encounter Miscellaneous Notes * Telephone Encounter - Awa Hanson RN - 06/18/2023 3:41 PM EDT Patient called nurse line and requested a return call. Assistant Producer returned call. No answer. Left message to contact office with any questions/concerns. Left office phone number for reference. documented in this encounter Plan of Treatment Upcoming Encounters Date Type Department Care Team (Late st Contact Info) Description 09/13/2025 11:30 AM EDT Office Visit [facility] [address] [facility] [place] [phone] Saida Aggarwal MD [address] [facility] [address] [place] [address] 10/24/2025 3:00 PM EST Office Visit [facility] [address] [place] [phone] [place] [address] [place] [address] documented as of this encounter Visit Diagnoses Not on filedocumented in this encounter Additional Health Concerns Assessment Noted Time PHQ-9 Depression Total Score: 0 06/11/20 23 7:00 AM EDT A Body Mass Index follow-up plan has been documented for the patient 01/29/2022 11:45 AM EDT documented as of this encounter Care Teams Asbestos Worker Helper Relationship Specialty Start Date End Date Justino Zhang MD [facility] [place] [address] PCP - General Internal Medicine 02/21/25 ALEJANDRA iPerre, RN [facility] 04/07/24 documented as of this encounter
--- OUTSIDE RECORDS SUMMARY | 2025-08-12 15:34 | XMS_ITS | Encounter Summary ---
Author Organization [employer] [facility] tem Address [facility] [id number] [address] [place] [address] Care Team Providers Care Human Resource Internship Name Role Phone Justino Zhang MD Primary Care Provider Encounter Details Date Type Department Care Team (Latest Contact Info) Description 06/28/2025 Patient Outreach [facility] [address] [place] [phone] Justino Zhang MD [address] [place] [address] [phone] Essential hypertension (Primary Dx); Pure hypercholesterolemia Social History Tobacco Use Types Packs/Day Years Used Date Smoking Tobacco: Never Smokeless Tobacco: Never Alcohol Use Standard Drinks/Week Comments No 0 (1 standard drink = 0.6 oz pur e alcohol) [facility] Utilities Answer Date Recorded In the past 12 months has [employer], gas, oil, or water [employer] threatened to shut off services in your home? No 07/30/2024 Social Connection and Isolat ion Panel [NHANES] Answer Date Recorded Frequency of Communication w ith Friends and Family Twice a week 12/05/2019 Frequency of Social Gatherin gs with Friends and Family Once a week 12/05/2019 Attends [employer] Services More than 4 times per year [...] Answer Date Recorded Total Score 0 07/25/2025 [facility] - Occupational Stress Questionnaire Answer Date [...] on file documented as of this encounter Progress Notes * Luba Sanz - 06/28/2025 9:27 AM EDT SN called Patient. SN verified with Patient. SN verified insurance change and messaged appropriate office contact. Verified Patient's insurance as [facility]. Pt pleasant and receptive to SN call. Patient experienced these changes since we last spoke. Patient had an appointment with their knife setter grinder machine. The appointment was on 06/16/25. SN reviewed visit summary with Patient and reinforced recommendations. Doctor recommendations: Encourage compliance with Amlactin therapy and urea cream 40% daily. Discourage any barefoot walking. . Patient verbalized understanding of Doctor recommendations. Stressed importance of avoiding walking barefoot . Regarding patient's heel ulcer SN instructed Patient on steps to promote wound healing. Be careful and protect the wound from trauma or injury. Don't let anything touch it or bump it. Regarding patient's hypertension diagnosis SN instructed Patient on these Signs and Symptoms of Hypertension: headache, facial flushing, and dizziness. Instructed Patient to notify Doctor if any of these Signs and Symptoms occur. Instructed Patient on benefits of monitoring blood pressure at home. Monitoring blood pressure changes at home can help you and your doctor make better decisions about your treatment. * Check if your blood pressure differs outside the doctor's office. Some people experience spikes in blood pressure due to anxiety associated with seeing a doctor white coat hypertension. Educated Patient on the benefits of exercising to lower blood pressure. Regular physical activitymakes your heart stronger, allowing it to pump more blood with less effort. Encouraged chair exercises as he has limited mobility related to heel wound . SN updated Care Plan with: Achieved goals and Reinforcing interventions/goals. Sent educational materials to Patient. Chair exercises . Materials sent via U.S. Mail. Confirmed an upcoming appointmentwith Podiatry on 07/11/25 and Emphasized importance of attending all scheduled medical appointments. Will assess next call. Advised Patient to call in the interim with any concerns or issues. Interventions Discussed: the importance of recognizing dizziness as a S&S of your Hypertension - 06/28/25 the importance of recognizing facial flushing as a S&S of your Hypertension - 06/28/25 the importance of recognizing headache as a S&S of your Hypertension - 06/28/25 setting a goal to check blood pressure - 06/28/25 setting a goal to do regular physical activity - 06/28/25 Goals Discussed:continue with current treatment plans - 06/28/25 increase joint mobility and range of motion - 06/28/25 Goals Achieved: Lab Work - 04/27/25 Patient insurance reviewed and verified in EMR. Updated office as necessary. documented in this encounter Plan of Treatment Upcoming Encounters Date Type Department Care Team (Late st Contact Info) Description 09/13/2025 11:30 AM EDT Office Visit [facility] [address] [facility] [address] [place] [phone] Saida Aggarwal MD [address] [facility] [address] [place] [address] 10/24/2025 3:00 PM EST Office Visit [facility] [address] [place] [phone] Justino Zhang MD [address] [place] [address] [phone] documented as of this encounter Goals Goal Patient Goal Type Associated Problems Recent Progress Patient-Stated? Author home General Yes Renuka Levy LSW Note: Evaluation of progress towards goal: feeling better, hopes to DC to home today documented as of this encounter Visit Diagnoses Diagnosis Essential hypertension- Primary Unspecified essential hypertension Pure hypercholesterolemia documented in this encounter Additional Health Concerns Assessment Noted Time PHQ-9 Depression Total Score: 0 02/22/20 25 3:01 PM EDT A Body Mass Index follow-up plan has been documented for the patient 03/09/2025 3:12 PM EDT documented as of this encounter Care Teams Human Resource Internship Relationship Specialty Start Date End Date Justino Zhang MD [address] [place] [phone] PCP - General Internal Medicine 02/21/25 ALEJANDRA Pierre, RN CCM Nurse - [employer] 04/07/24 documented as of this encounter
--- OUTSIDE RECORDS SUMMARY | 2025-08-12 15:34 | XMS_ITS | Encounter Summary ---
Author Organization [employer] Sys [employer] Address [facility] [place]-[id number] [address] [place] [address] Care Team Providers Care Rotary Shear Operator Name Role Phone Justino Zhang MD Primary Care Provider [phone] Reason for Visit * Reason Comments Med Refill Encounter Details Date Type Department Care Team (Late st Contact Info) Description 10/31/2021 Refill [facility] [address] [place] [phone] Quincy Blank MD [address] Provider retired 02/15/25 [place], [place] [phone] Social History Tobacco Use Types Packs/Day Years [...] and Family Once a week 12/05/2019 Attends Jewish Services More than 4 times per year [...] Answer Date Recorded Total Score 0 08/27/2021 [facility] [place] of Occupat ional Health - Occupational Stress [...] Upcoming Encounters Date Type Department Care Team ([facility] st Contact Info) Description 09/13/2025 11:30 AM EDT Office Visit [facility] [address] [facility] [place] [address] Saida Aggarwal MD [address] [facility] [address] [place] [address] 10/24/2025 3:00 PM EST Office Visit [facility] [address] [place] [phone] Justino Zhang MD [address] [place] [address] documented as of this encounter Visit Diagnoses Not on filedocumented in this encounter Additional Health Concerns Assessment Noted Time PHQ-9 Depression Total Score: 0 08/27/20 21 9:00 AM EDT A Body Mass Index follow-up plan has been documented for the patient 07/31/2020 1:32 PM EDT documented as of this encounter Care Teams Rotary Shear Operator Relationship Specialty Start Date End Date Justino Zhang MD [address] [place] [address] PCP - General Internal Medicine 02/21/25 ALEJANDRA Pierre, RN [facility] - [facility] 04/07/24 documented as of this encounter
--- OUTSIDE RECORDS SUMMARY | 2025-08-12 15:34 | XMS_ITS | Encounter Summary ---
Author Organization [email or web address] Address [id number] [address] [place] [address] Care Team Providers Care Instructor Of Spanish Name Role Phone Justino Zhang MD Primary Care Provider [phone] Encounter Details Date Type Department Care Team (Late st Contact Info) Description 03/06/2023 Orders Only [facility] [address] [facility] [place] [phone] External, Scanning Provider Social History Tobacco Use [...] and Family Once a week 12/05/2019 Attends Sikhism Services More than 4 times per year [...] Answer Date Recorded Total Score 0 12/23/2022 [facility] [place] of Occupat ional Health - Occupational Stress [...] have Coronavirus / COVID-19? No / Unsure 02/24/2023 12:49 PM EDT documented as of this encounter Plan of Treatment Upcoming Encounters Date Type Department Care Team (Late st Contact Info) Description 09/13/2025 11:30 AM EDT Office Visit [facility] [address] [facility] [place] [address] Saida Aggarwal MD [address] [facility] [address] [place] [address] 10/24/2025 3:00 PM EST Office Visit [facility] [address] [place] [phone] Justino Zhang MD [address] [place] [address] documented as of this encounter Procedures Procedure Name Priority Date/Time Associated Diagnosis Comments VASC ARTERIAL DUPLEX LOWER BILATERAL Routine 01/13/2023 documented in this encounter Results * Vas art duplex lwr bilateral (01/13/2023) Anatomical Region Laterality Modality Vascular Bilateral Ultrasound us Scanning Provider External CV VASCULAR ORDERABLE S Final Result documented in this encounter Visit Diagnoses Not on filedocumented in this encounter Additional Health Concerns Assessment Noted Time PHQ-9 Depression Total Score: 0 12/23/19 23 7:00 AM EST A Body Mass Index follow-up plan has been documented for the patient 01/29/2022 11:45 AM EDT documented as of this encounter Care Teams Instructor Of Spanish Relationship Specialty Start Date End Date Justino Zhang MD [address] [place] [address] PCP - General Internal Medicine 02/21/25 ALEJANDRA Pierre, RN [facility] 04/07/24 documented as of this encounter
--- OUTSIDE RECORDS SUMMARY | 2025-08-12 15:34 | XMS_ITS | Encounter Summary ---
Author Organization [employer] Sys tem Address [facility] [id number] [address] [place] [address] Care Team Providers Care Mold Dumper Name Role Phone Justino Zhang MD Primary Care Provider [phone] Reason for Visit * Reason Comments Med Refill Encounter Details Date Type Department Care Team (Late st Contact Info) Description 11/08/2020 Refill [facility] [address] [place] [address] Quincy Blank MD [address] Provider retired 02/15/25 [place], [place] [id number] Social History Tobacco Use Types Packs/Day Years [...] and Family Once a week 12/05/2019 Attends Baptism Services More than 4 times per year 12/05/2019 Active Member of Clubs or Organizations Yes 12/05/2019 Attends Club or Organization Meetings Never 12/05/2019 Marital Status 12/05/2019 AUDIT-C Answer Date Recorded Frequency of Alcohol Consumption Monthly or less 12/05/2019 Average Number of Drinks 1 or 2 01/19/2 020 Frequency of Binge Drinking Never 11/17 Overall Financial Resource Strain (CARDIA) Answe r Date Recorded Difficulty of Paying Living Expenses Not hard at all 12/05/2019 PHQ-2 Answer Date Recorded PHQ-2 Score 0 09/19/2020 [facility] [place] of Occupat ional Health - Occupational Stress [...] Employment Answer Date Recorded Employment No 12/05/2019 Education Answer Date Recorded What is the [...] Upcoming Encounters Date Type Department Care Team ([facility] st Contact Info) Description 09/13/2025 11:30 AM EDT Office Visit [facility] [address] [place] [address] Saida Aggarwal MD [address] [place] [address] 10/24/2025 3:00 PM EST Office Visit [facility] [address] [place] [address] Justino Zhang MD [address] [place] [address] documented as of this encounter Visit Diagnoses Not on filedocumented in this encounter Additional Health Concerns Assessment Noted Time PHQ-9 Depression Total Score: 0 09/19/20 20 11:00 AM EST A Body Mass Index follow-up plan has been documented for the patient 07/31/2020 1:32 PM EDT documented as of this encounter Care Teams Mold Dumper Relationship Specialty Start Date End Date Justino Zhang MD [facility] [place] [address] PCP - General Internal Medicine 02/21/25 ALEJANDRA Pierre, RN [facility] 04/07/24 documented as of this encounter
--- OUTSIDE RECORDS SUMMARY | 2025-08-12 15:34 | XMS_ITS | Encounter Summary ---
Author Organization [facility] [employer] [place] s tem Address [id number] [address] [place] [address] Care Team Providers Care Layboy Tender Name Role Phone Justino Zhang MD Primary Care Provider [phone] Encounter Details Date Type Department Care Team (Late st Contact Info) Description 07/29/2025 Results Follow-Up [facility] [address] [place] [phone] Marilee Michelle, [employer] SE[employer]ATION PLANT OPERATOR-STRETCHING PRESS OPERATOR [address] [place], [place] [phone] Basic Metabolic Panel Social History Tobacco Use Types Packs/Day Years Used Date Smoking Tobacco: Never Smokeless Tobacco: Never Alcohol Use Standard Drinks/Week Comments No 0 (1 standard drink = 0.6 oz pur e alcohol) [facility] Utilities Answer Date Recorded In the past 12 months has [employer] electric, gas, oil, or water [employer] threatened to shut off services in your home? No 07/30/2024 Social Connection and Isolat ion Panel [NHANES] Answer Date Recorded Frequency of Communication w ith Friends and Family Twice a week 12/05/2019 Frequency of Social Gatherin gs with Friends and Family Once a week 12/05/2019 Attends Islam Services More than 4 times per year [...] Answer Date Recorded Total Score 0 07/25/2025 [facility] - Occupational Stress Questionnaire Answer Date [...] [facility] [address] [place] [phone] Saida Aggarwal MD [address] [facility] [address] [place], [place] [id number] 10/24/2025 3:00 PM EST Office Visit [facility] [address] [place] [address] Justino Zhang MD [address] [place] [address] documented as of this encounter Goals [...] documented as of this encounter Care Teams Layboy Tender Relationship Specialty Start Date End Date Justino Zhang MD [address] [place] [address] PCP - General Internal Medicine 02/21/25 Luba Sanz, PETROSN, RN [facility] 04/07/24 documented as of this encounter
--- OUTSIDE RECORDS SUMMARY | 2025-08-12 15:34 | XMS_ITS | Encounter Summary ---
Author Organization [facility] Address [facility] [place] [id number] [address] [place] [address] Care Team Providers Care Grain Combiner Name Role Phone Justino Zhang MD Primary Care Provider [phone] Encounter Details Date Type Department Care Team (Late st Contact Info) Description 10/13/2020 Orders Only [facility] [address] [place] [address] Alysia Jernigan RMA Social History Tobacco Use Types Packs/Day Years [...] and Family Once a week 12/05/2019 Attends Christian Services More than 4 times per year [...] Answer Date Recorded PHQ-2 Score 0 09/19/2020 [facility] [place] of Occupat ional Health - Occupational Stress [...] have Coronavirus / COVID-19? No / Unsure 09/19/2020 11:02 AM EST documented as of this encounter Plan of Treatment Upcoming Encounters Date Type Department Care Team (Late st Contact Info) Description 09/13/2025 11:30 AM EDT Office Visit [facility] [address] [place] [address] Saida Aggarwal MD [address] [place] [address] 10/24/2025 3:00 PM EST Office Visit [facility] [place] [address] Justino Zhang MD [address] [place] [address] documented as of this encounter Visit Diagnoses Not on filedocumented in this encounter Additional Health Concerns Assessment Noted Time PHQ-9 Depression Total Score: 0 09/19/20 20 11:00 AM EST A Body Mass Index follow-up plan has been documented for the patient 07/31/2020 1:32 PM EDT documented as of this encounter Care Teams Grain Combiner Relationship Specialty Start Date End Date Justino Zhang MD [address] [place] [address] PCP - General Internal Medicine 02/21/25 ALEJANDRA Pierre, RN [facility] 04/07/24 documented as of this encounter
--- OUTSIDE RECORDS SUMMARY | 2025-08-12 15:34 | XMS_ITS | Encounter Summary ---
Author Organization [facility] [employer] Sys tem Address [id number] [address] [place] [address] Care Team Providers Care Auto Hauler Name Role Phone Justino Zhang MD Primary Care Provider [phone] Encounter Details Date Type Department Care Team (Late Contact Info) Description 03/28/2023 Telephone [facility] [address] [place] [phone] Ashley Bertrand LPN Social History Tobacco Use [...] and Family Once a week 12/05/2019 Attends Orthodox Services More than 4 times per year [...] Answer Date Recorded Total Score 0 12/23/2022 [facility] [place] of Occupat ional Health - Occupational Stress [...] encounter Miscellaneous Notes * Telephone Encounter - Ashley Bertrand LPN - 03/28/2023 10:22 AM EDT Royce [facility] a [facility] Dr. Aggarwal on Friday03/31/2023. He is wondering if he should keep his appointment on Friday due to he is unsure if Dr. Aggarwal will have his results by then. He is wondering what he should do? * Telephone Encounter - Saida Aggarwal MD - 03/28/2023 10:22 AM EDT I would recommend we move this out at least 6-8 weeks. Will order any pressure/mask changes after study. Can take 1-2 weeks for results. Then I would like him to trial new settings for a few weeks before coming back in follow up so we have new data to review from his machine * Telephone Encounter - Ashley Bertrand LPN - 03/28/2023 10:22 AM EDT Patient went ahead and canceled his appointment for Friday03/31/2023. He was at the store so he wasunable to reschedule at this time but he states he will call the office back. He states the doxepin5 mg is not working the best. I spoke with Dr. Aggarwal and she okayed for him to increase to 10 mg. Hestates at this he does not think he needs a refill but will call the office when he does. documented in this encounter Plan of Treatment Upcoming Encounters Date Type Department Care Team (Late st Contact Info) Description 09/13/2025 11:30 AM EDT Office Visit [facility] [address] [place] [phone] Saida Aggarwal MD [address] [facility] [address] [place] [address] 10/24/2025 3:00 PM EST Office Visit [facility] [address] [place] [phone] Justino Zhang MD [address] [place] [phone] documented as of this encounter Visit Diagnoses Not on filedocumented in this encounter Additional Health Concerns Assessment Noted Time PHQ-9 Depression Total Score: 0 12/23/19 23 7:00 AM EST A Body Mass Index follow-up plan has been documented for the patient 01/29/2022 11:45 AM EDT documented as of this encounter Care Teams Auto Hauler Relationship Specialty Start Date End Date Justino Zhang MD [address] [place] [address] PCP - General Internal Medicine 02/21/25 Luba Sanz, PETROSN, RN CCM [facility] 04/07/24 documented as of this encounter
--- OUTSIDE RECORDS SUMMARY | 2025-08-12 15:34 | XMS_ITS | Encounter Summary ---
Author Organization [facility] Address [facility] [id number] [address] [place] [address] Care Team Providers Care Insole Presser Name Role Phone Justino Zhang MD Primary Care Provider [phone] Encounter Details Date Type Department Care Team (Late Contact Info) Description 07/22/2023 Telephone [facility] [address] [place] [phone] Shelli Boykin Social History Tobacco Use Types Packs/Day Years [...] and Family Once a week 12/05/2019 Attends Rastafari Services More than 4 times per year [...] Answer Date Recorded Total Score 0 06/11/2023 [place] of Occupat ional Health - Occupational Stress [...] encounter Miscellaneous Notes * Telephone Encounter - Shelli Boykin - 07/22/2023 9:34 AM EDT Patient contacted board writer to reschedule his new patient appointment on 07/25 d/t MRI not scheduled until 07/31. Patient rescheduled 10/10 @1p with Dr Conner in [place]. Patient is questioning if Dr Conner would be able to discuss MRI results over the phone as he does not want to wait 2 months to receive them. Please advise and update patient * Telephone Encounter - Lashae Johnson CMA - 07/22/2023 9:34 AM EDT Called patient and LVM informing him that we can call him with his results when we receive them andthat I would add his appointment to the wait list in the hopes he does not need to wait till September for his appt. * Telephone Encounter - Lashae Johnson CMA - 07/22/2023 9:34 AM EDT Patient had MRI done this morning 07/31/23 and would like to know the results once they are received. Thanks * Telephone Encounter - Irwin Conner MD - 07/22/2023 9:34 AM EDT Please read the results of the MRI brain to him. IMPRESSION: * Assessment of the 5th cranial nerve is compromised without IV contrast. Grossly no mass effect within cavernous sinus or 5th cranial nerve pathway on the right. I recommend a dedicated contrast brain MRI tailored to the 5th cranial nerve pre and postcontrast if you have suspicion for trigeminal ne uralgia. * Modest dill-sinusitis which could potentially account for facial pain * Brain MR shows no acute findings. Can't offer any clinical advice at this time as I have not seen/evaluated the patient. Brain MRI looks unremarkable except for diffuse sinus disease. Please let the patient know. Thanks documented in this encounter Plan of Treatment Upcoming Encounters Date Type Department Care Team (Late st Contact Info) Description 09/13/2025 11:30 AM EDT Office Visit [facility] [address] [address] Saida Aggarwal MD [address] [facility] [address] [place] [address] 10/24/2025 3:00 PM EST Office Visit [facility] [address] [place] [address] Justino Zhang MD [address] [place] [address] documented as of this encounter Visit Diagnoses Not on filedocumented in this encounter Additional Health Concerns Assessment Noted Time PHQ-9 Depression Total Score: 0 06/11/20 7:00 AM EDT A Body Mass Index follow-up plan has been documented for the patient 01/29/2022 11:45 AM EDT documented as of this encounter Care Teams Insole Presser Relationship Specialty Start Date End Date Justino Zhang MD [address] [place] [address] PCP - General Internal Medicine 02/21/25 ALEJANDRA Pierre, RN [facility] 04/07/24 documented as of this encounter
--- OUTSIDE RECORDS SUMMARY | 2025-08-12 15:34 | XMS_ITS | Encounter Summary ---
Author Organization [facility] Address [id number] [address] [place] [address] Care Team Providers Care Nursing Home Director Name Role Phone Justino Zhang MD Primary Care Provider [phone] Reason for Visit * Reason Onset Date Comments Med Refill 01/04/2022 Encounter Details Date Type Department Care Team (Late st Contact Info) Description 01/04/2022 Refill [facility] [address] [place] [phone] Elsa Fleming CMA Social History Tobacco Use Types Packs/Day Years [...] and Family Once a week 12/05/2019 Attends Hinduism Services More than 4 times per year [...] PHQ-2 Answer Date Recorded Total Score 0 01/02/2022 [facility] [place] of Occupat ional Health - Occupational Stress [...] have Coronavirus / COVID-19? No / Unsure 01/02/2022 9:33 AM EST documented as of this encounter Plan of Treatment Upcoming Encounters Date Type Department Care Team ([facility] Contact Info) Description 09/13/2025 11:30 AM EDT Office Visit [facility] [address] [place] [address] Saida Aggarwal MD [address] [facility] [address] [place] [address] 10/24/2025 3:00 PM EST Office Visit [facility] [address] [place] [address] [place] [address] [place] [address] documented as of this encounter Visit Diagnoses Not on filedocumented in this encounter Additional Health Concerns Assessment Noted Time PHQ-9 Depression Total Score: 0 01/02/20 22 9:00 AM EST A Body Mass Index follow-up plan has been documented for the patient 07/31/2020 1:32 PM EDT documented as of this encounter Care Teams Nursing Home Director Relationship Specialty Start Date End Date Justino Zhang MD [facility] [place] [address] PCP - General Internal Medicine 02/21/25 ALEJANDRA Pierre, RN [facility] Nurse - [facility] 04/07/24 documented as of this encounter
--- OUTSIDE RECORDS SUMMARY | 2025-08-12 15:34 | XMS_ITS | Encounter Summary ---
Author Organization [facility] Address [address] [facility] [place] [address] Care Team Providers Care Java Security Architect Name Role Phone Quincy Blank MD Primary Care Provider [phone] Justino Zhang MD Primary Care Provider [phone] Encounter Details Date Type Department Care Team (Late st Contact Info) Description 11/23/2023 Abstract [facility] [address] [place] [address] Cuca Sanford NP Social History Tobacco Use Types Packs/Day Years Used Date Smoking Tobacco: Never Smokeless Tobacco: Never Alcohol Use Standard Drinks/Week Comments Not Currently [...] Description 08/24/2025 1:45 PM EDT Office Visit [facility] [address] [place] [phone] Zana Dahl DPM [address] [place] [phone] 09/19/2025 9:30 AM EST Procedure Visit [facility] [address] [place] [phone] Zana Dahl, DPTaj [address] [place], [place] [phone] documented as of this encounter Visit Diagnoses Not on filedocumented in this encounter Care Teams Java Security Architect Relationship Specialty Start Date End Date Quincy Blank MD [address] [place] [address] PCP - General Family Medicine 05/09/23 07/10/25 Justino Zhang MD [address] [place], [place] [phone] PCP - General Family Medicine 07/11/25 documented as of this encounter
--- OUTSIDE RECORDS SUMMARY | 2025-08-12 15:34 | XMS_ITS | Encounter Summary ---
Author Organization [facility] Address [id number] [address] [place] [address] Care Team Providers Care Engineering Team Supervisor Name Role Phone Justino Zhang MD Primary Care Provider [phone] Encounter Details Date Type Department Care Team ([facility] st Contact Info) Description 04/08/2023 Telephone [facility] [address] [place] [address] Saida Aggarwal MD [address] [facility] [address] [place] [address] Social History Tobacco Use Types Packs/Day Years [...] and Family Once a week 12/05/2019 Attends Adventist Services More than 4 times per year [...] Answer Date Recorded Total Score 0 12/23/2022 [facility] [place] of Occupat ional Health - Occupational Stress [...] encounter Miscellaneous Notes * Telephone Encounter - Saida Aggarwal MD - 04/08/2023 3:26 PM EDT Titration interpreted and pressure change order signed in natus, please fax to [facility] Results sent to patient DIAGNOSIS: ??? Obstructive Sleep Apnea (G47.33) (Qissxw=267.0 lbs; BMI=45.2 kg/m2, on 03/28/2023) COMMENTS: This BiPAP titration tested settings of 18/14 to 22/16 cm of water. A setting of 22/16 cm of water effectively treated this patient???s obstructive sleep apnea and was tested in lateral REM and NREM sleep. Settings as low as 22/15 cm of water were nearly as effective. There was no sleep related hypoventilation or hypoxemia. * Telephone Encounter - Ashley Bertrand LPN - 04/08/2023 3:26 PM EDT Faxed pressure change order, recent office note, sleep study results, and demographics to [facility]. documented in this encounter Plan of Treatment Upcoming Encounters Date Type Department Care Team (Late st Contact Info) Description 09/13/2025 11:30 AM EDT Office Visit [facility] [address] [place] [phone] Saida Aggarwal MD [address] [facility] [address] [place] [address] 10/24/2025 3:00 PM EST Office Visit [facility] [address] [place] [phone] Justino Zhang MD [address] [place], [place] [phone] documented as of this encounter Visit Diagnoses Not on filedocumented in this encounter Additional Health Concerns Assessment Noted Time PHQ-9 Depression Total Score: 0 12/23/19 23 7:00 AM EST A Body Mass Index follow-up plan has been documented for the patient 01/29/2022 11:45 AM EDT documented as of this encounter Care Teams Engineering Team Supervisor Relationship Specialty Start Date End Date Justino Zhang MD [address] [place] [id number] PCP - General Internal Medicine 02/21/25 ALEJANDRA Pierre, RN [facility] 04/07/24 documented as of this encounter
--- OUTSIDE RECORDS SUMMARY | 2025-08-12 15:34 | XMS_ITS | Encounter Summary ---
Author Organization [employer] [facility] tem Address [id number] [address] [place] [address] Care Team Providers Care Enamel Applier Name Role Phone Justino Zhang MD Primary Care Provider [phone] Encounter Details Date Type Department Care Team (Latest Contact Info) Description 08/04/2025 Patient Outreach [facility] [address] [place] [phone] Justino Zhang MD [address] [place] [phone] Essential hypertension (Primary Dx); Pure hypercholesterolemia Social History Tobacco Use Types Packs/Day Years Used Date Smoking Tobacco: Never Smokeless Tobacco: Never Alcohol Use Standard Drinks/Week Comments No 0 (1 standard drink = 0.6 oz pur e alcohol) [facility] Utilities Answer Date Recorded In the past 12 months has Your T[employer], gas, oil, or water [employer] threatened to shut off services in your home? No 07/30/2024 Social Connection and Isolat ion Panel [NHANES] Answer Date Recorded Frequency of Communication w ith Friends and Family Twice a week 12/05/2019 Frequency of Social Gatherin gs with Friends and Family Once a week 12/05/2019 Attends Episcopalian Services More than 4 times per year [...] Answer Date Recorded Total Score 0 07/25/2025 [facility] - Occupational Stress Questionnaire Answer [...] encounter Progress Notes * Luba Sanz - 08/04/2025 1:14 PM EDT SN called patient regarding CCM program. No answer, unable to leave a message as no option to leaveVM was available. SN rescheduled call for a later date. documented in this encounter Plan of Treatment Upcoming Encounters Date Type Department Care Team (Late st Contact Info) Description 09/13/2025 11:30 AM EDT Office Visit [facility] [address] [facility] [place] [phone] Saida Aggarwal MD [address] [facility] [address] [place] [address] 10/24/2025 3:00 PM EST Office Visit [facility] [address] [facility] [place] [phone] [place] [address] [place] [phone] documented as of this encounter Goals Goal [...] documented as of this encounter Care Teams Enamel Applier Relationship Specialty Start Date End Date Justino Zhang MD [address] [place] [address] PCP - General Internal Medicine 02/21/25 ALEJANDRA Pierre, RN CCM Nurse - [facility] 04/07/24 documented as of this encounter
--- OUTSIDE RECORDS SUMMARY | 2025-08-12 15:34 | XMS_ITS | Encounter Summary ---
Author Organization [employer] Sys tem Address [facility][id number] [address] [place] [address] Care Team Providers Care Hide Worker Name Role Phone Justino Zhang MD Primary Care Provider [phone] Reason for Visit * Reason Comments Med Refill Encounter Details Date Type Department Care Team (Late st Contact Info) Description 02/07/2021 Refill [facility] [address] [place] [phone] Quincy Blank MD [address] Provider retired 02/15/25 [place], [place] [id number] Social History Tobacco Use Types Packs/Day Years [...] and Family Once a week 12/05/2019 Attends Syn[employer] Services More than 4 times per year [...] Answer Date Recorded Total Score 0 01/29/2021 [facility] of Occupat ional Health - Occupational Stress [...] have Coronavirus / COVID-19? No / Unsure 01/29/2021 12:52 PM EDT documented as of this encounter Plan of Treatment Upcoming Encounters Date Type Department Care Team (Late st Contact Info) Description 09/13/2025 11:30 AM EDT Office Visit [facility] [address] [place] [address] Saida Aggarwal MD [address] [facility] [address] [place] [address] 10/24/2025 3:00 PM EST Office Visit [facility] [address] [place] [address] Justino Zhang MD [address] [place] [address] documented as of this encounter Visit Diagnoses Not on filedocumented in this encounter Additional Health Concerns Assessment Noted Time PHQ-9 Depression Total Score: 0 01/30/20 21 1:00 PM EDT A Body Mass Index follow-up plan has been documented for the patient 07/31/2020 1:32 PM EDT documented as of this encounter Care Teams Hide Worker Relationship Specialty Start Date End Date Justino Zhang MD [address] [place] [address] PCP - General Internal Medicine 02/21/25 ALEJANDRA Pierre, RN [facility] 04/07/24 documented as of this encounter
--- OUTSIDE RECORDS SUMMARY | 2025-08-12 15:35 | XMS_ITS | Encounter Summary ---
Author Organization [employer] s tem Address [facility]-[id number] [address] [place] [address] Care Team Providers Care Lumber Tailer Name Role Phone Justino Zhang MD Primary Care Provider [phone] Reason for Visit * Reason Onset Date Comments Transition Of Care 08/03/2024 Encounter Details Date Type Department Care Team (Late st Contact Info) Description 08/03/2024 [facility] [address] [place] [address] Zulema Neal RN Transition Of Care Social History Tobacco Use Types Packs/Day Years Used Date Smoking Tobacco: Never Smokeless Tobacco: Never Alcohol Use Standard Drinks/Week Comments No 0 (1 standard drink = 0.6 oz pur e alcohol) [facility] Utilities Answer Date Recorded In the past 12 months has [employer], gas, oil, or water [employer] threatened to shut off services in your [...] PHQ-2 Answer Date Recorded Total Score 0 07/30/2024 [facility] of Occupat ional Health - Occupational Stress [...] got money to buy more. Never True 07/30/2024 Within the past 12 months th e food we bought just didn't last and we didn't have money to get more. Never True 07/30/2024 Purpose - Life Answer Date Recorded Purpose [...] encounter Miscellaneous Notes * Telephone Encounter - Zulema Neal RN - 08/03/2024 12:50 PM EDT Transition of Care (*required) *Additional Questions/Concerns Requiring PCP Follow-Up: 1. Office please contact patient to schedule TCV 2. BMP ordered on discharge, to be completed on 08.09.24 3. Blood cultures pending, no growth 3 days. . This documentation is being used for Transition of Care purposes: Yes Goal: Patient will demonstrate a safe transition from hospital to home Diagnosis on Discharge: Principal Problem: Cellulitis of right lower leg Active Problems: STEFF (obstructive sleep apnea) Essential hypertension Hyperlipidemia Gastroesophageal reflux disease without esophagitis Lymphedema of both lower extremities Class 3 severe obesity with body mass index (BMI) of 45.0 to 49.9 in adult Restless leg syndrome S/P total knee arthroplasty, right Failure of outpatient treatment Moderate aortic stenosis Iron deficiency anemia, unspecified Discharge Specialty: Other *Name of Discharging Facility: [facility] Date of Facility Discharge: 07.30.24 - 08.02.24 Date of Interactive Contact and Name of Bricklayer: 08.03.24 12:55pm Called patient, no answer, left msg. 08.03.24 3pm Called patient again, no answer. *Medication Review Completed: No New medications: CEPHalexin (KEFLEX) sulfamethoxazole-trimethoprim (BACTRIM DS) Stopped: doxycycline 100 mg capsule (VIBRAMYCIN) Medication Reconciliation Questions/Concerns: Unable to speak with patient. *Follow Up Appointments with Providers: Primary: Quincy Fernandez MD - TBD Specialty: Specialty: Specialty: Review of Pending Lab/Diagnostic Tests and Plan for Completion: Blood cultures pending, no growth 3 days. BMP ordered on discharge, to be completed on 08.09.24 Assessment and Support of Treatment Regimen Adherence and Medication Management: Unable to speak with patient. Patient is currently navigated by [facility] nurse. Education Provided by [facility] to Support Self-Management, Independent Living and ADLs: Unable to speak with patient. Communication with Home Health Agencies and Other Services Utilized/Needed by the Patient: N/A documented in this encounter Plan of Treatment Upcoming Encounters Date Type Department Care Team (Late st Contact Info) Description 09/13/2025 11:30 AM EDT [facility] [address] [place] [address] Saida Aggarwal MD [address] [facility] [address] [place] [address] 10/24/2025 3:00 PM EST Office Visit [facility] [address] [place] [phone] Justino Zhang MD [address] [place] [address] documented as of this encounter Goals Goal Patient Goal Type Associated Problems Recent Progress Patient-Stated? Author home General Yes Renuka Levy LSW Note: Evaluation of progress towards goal: feeling better, hopes to DC to home today documented as of this encounter Visit Diagnoses Not on filedocumented in this encounter Additional Health Concerns Assessment Noted Time PHQ-9 Depression Total Score: 0 07/30/20 24 7:00 AM EDT A Body Mass Index follow-up plan has been documented for the patient 01/29/2022 11:45 AM EDT documented as of this encounter Care Teams Lumber Tailer Relationship Specialty Start Date End Date Justino Zhang MD [address] [place] [address] PCP - General Internal Medicine 02/21/25 PETROS PierreN, RN CCM [facility] 04/07/24 documented as of this encounter
--- OUTSIDE RECORDS SUMMARY | 2025-08-12 15:35 | XMS_ITS | Clinical Summary ---
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 0 04/13/2020 Herniation of right lung 04/13/2020 Class 3 severe obesity with body mass index (BMI) of 45.0 to 49.9 in adult 04/13/2020 Social History Tobacco Use Types Packs/Day Years Used Date Smoking Tobacco: Never Assessed Sex and Gender Information Value Date Recorded Sex Assigned at Not on file Legal Sex Male 12:13 AM EDT Gender Identity Not on file Sexual Orientation Not on file Plan of Treatment Health Maintenance Due Date Last Done Comments Cologuard (average risk only) 1952 Colonoscopy 1952 Colorectal Cancer Screening 1952 FIT (average risk only) 1952 Hepatitis C Screening 1952 Zoster Recombinant Vaccines (1 of 2) 2002 COVID-19 Vaccine ( season) 2025 Influenza Vaccine (#1) 2025 0, 09/13/2019, 08/08/2018, Additional history exists Respiratory Syncytial Virus (RSV) or ages 60 years and older (1 - 1-dose 75+ series) 2027 DTaP,Tdap,and Td Vaccines (2 - Td or Tdap) 02/08/2029 02/08/2019 Pneumococcal Vaccines 50years + Completed 09/15/2019, 08/08/2018, 09/06/2010 Respiratory Syncytial Virus (RSV) ages 0 thru 19 months Aged Out No longer el igible based on patient's age to complete this topic Insurance MEDICARE PART A AND B [facility] Care Teams Animal Behaviorist Relationship Specialty Start Date End Date Quincy Blank MD [address] [place] [address] PCP - General Family Medicine 04/03/20 Raheem Schumacher, PAJaquelineC [address], [place] [address] Referring Physician 04/03/20
--- OUTSIDE RECORDS SUMMARY | 2025-08-12 15:35 | XMS_ITS | Clinical Summary ---
Author Organization [facility] Address [address] [place] [address] Care Team Providers Care Assistant Food Service Manager Name Role Phone Quincy Blank MD Primary Care Provider [phone] Allergies No known active allergies Medications pramipexole (Mirapex) 1.5 mg tablet Take 1.5 mg by mouth at bedtime. 04/07/2023 Active omeprazole (PriLOSEC) [address] capsule Take 20 mg by mouth at bedtime. 2023 Active atorvastatin (Lipitor) 10 mg tablet Take 10 mg by mouth at bedtime. 2023 Active ferrous sulfate 325 (65 Fe) MG tablet Take 325 mg by mouth in the morning. 01/01/2023 Active furosemide (Lasix) 40 mg tablet Take 40 mg by mouth if needed. 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 No 05/12/2024 Humiliation, Afraid, Rape, and Kick questionnair e Answer Date Recorded Within the last year, have y ou been afraid of your partner or ex-partner? No 05/31/2024 Emotionally Abused Not on file 05/31/2024 Physically Abused Not on file 05/31/2024 Sexually Abused Not on file 05/31/2024 Overall Financial Resource Strain (CARDIA) Answe r Date Recorded How hard is it for you to pa y for the very basics like food, housing, medical care, and heating? Not hard at all 05/12/2024 PHQ-2 Answer Date Recorded Patient Health Questionnaire-2 Score 0 05/31/2024 Transportation Answer Date Recorded In the past 12 months, has l ack of transportation kept you from medical appointments or from getting medications? No 05/12/2024 Lack of Transportation (Non-Medical) Not on file 05/12/2024 Housing Stability Vital Sign Answer Catracho e Recorded Unable to Pay for Housing in the Last Year Not o n file 05/12/2024 Number of Places Lived in the Last Year Not on f ile 05/12/2024 In the last 12 months, was t here a time when you did not have a steady place to sleep or slept in a jail (including now)? No 05/12/2024 Hunger Vital Sign Answer Date Recorded Within the past 12 months, y ou worried that your food would run out before you got the money to buy more. Never true 05/12/20 24 Ran Out of Food in the Last Year Not on file 05/12/2024 Sex and Gender Information Value Date Recorded Sex Assigned at Not on file Legal Sex Male 3:05 PM EDT Gender Identity Not on file Sexual Orientation Not on file Last Filed Vital Signs Vital Sign Reading Time Taken Comments Blood Pressure 114/70 05/13/2024 7:10 AM EDT Pulse 87 05/13/2024 7:10 AM EDT Temperature 36.8 C (98.2 F) 05/13/2024 7:09 AM EDT Respiratory Rate 16 05/13/2024 7:09 AM EDT Oxygen Saturation 97% 05/13/2024 7:56 AM EDT Inhaled Oxygen Concentration - - Weight 161 kg (356 lb) 05/31/2024 10:47 AM EDT Height 185.4 cm (6' 1 ) 05/24/2024 1:10 PM EDT Body Mass Index 46.97 05/24/2024 1:10 PM EDT Plan of Treatment Health Maintenance Due Date Last Done Comments CT Colonography 1952 Colonoscopy 1952 Colorectal Cancer Screening 1952 FIT-DNA 1952 FIT 1952 FOBT 1952 Medicare Annual Wellness (AWV) 1952 Sigmoidoscopy 1952 Depression Screening 1964 Fall Risk Screening 2017 COVID-19 Vaccine ( season) 2025 08/29/2024, 09/01/2023, 04/29/2023, Additional history exists Influenza Vaccine (#1) 2025 , 09/01/2023, 08/07/2022, Additional history exists Adult Tetanus 02/08/2029 02/08/2019 Pneumococcal Vaccine: 50+ Years Completed 09/15/2019, 08/08/2018, 09/06/2010 Zoster Vaccines Completed 07/05/2023, 04/17, 11/08/2019 HIB Vaccines Aged Out No longer eligi ble based on patient's age to complete this topic HPV Vaccines Aged Out No longer eligi ble based on patient's age to complete this topic IPV Vaccines Aged Out No longer eligi ble based on patient's age to complete this topic Meningococcal B Vaccine Aged Out No l onger eligible based on patient's age to complete this topic Meningococcal Vaccine Aged Out No ana maría jennifer eligible based on patient's age to complete this topic Rotavirus Vaccines Aged Out No longer eligible based on patient's age to complete this topic Medical Devices Implanted Type Area Photo Optics Technician Device Identifier Shelf Expiration Date Model / Serial / Lot Cement,Bone,R ,1x40us - [id number] - [id number] Implanted:Qty : 3 on 05/12/2024 by Tommy Chappell MD at [facility] Bone Cement Right: Knee JG [id number] 08/16/2026 [id number] / [id number] / [id number] Femoral Wedge Implanted:Qty : 1 on 05/12/2024 by Tommy Chappell MD at [facility] Right: Knee [employer] [id number] 11/23/2032 [id number] / / [id number] Femoral Wedge Implanted:Qty : 1 on 05/12/2024 by Tommy Chappell MD at [facility] Right: Knee [employer] [id number] 02/21/2030 [id number] / / [id number] Pressfit Stem Implanted:Qty : 1 on 05/12/2024 by Tommy Chappell MD at [facility] Right: Knee [employer] [id number] 04/26/2029 [id number] / / [id number] Articular Insert Implanted:Qty : 1 on 05/12/2024 by Tommy Chappell MD at [facility] Right: Knee [employer] [id number] 04/15/2025 [id number] / / [id number] Tibial Baseplate Implanted:Qty : 1 on 05/12/2024 by Tommy Chappell MD at [facility] Right: Knee [employer] 07/29/2030 [id number] / / [id number] Tibial Wedge Implanted:Qty : 1 on 05/12/2024 by Tommy Chappell MD at [facility] Right: Knee [employer] [id number] 06/19/2028 [id number] / / [id number] Tibial Wedge Implanted:Qty : 1 on 05/12/2024 by Tommy Chappell MD at [facility] Right: Knee [employer] [id number] 01/07/2032 [id number] / / [id number] Offset Notch Grinder Implanted:Qty : 1 on 05/12/2024 by Tommy Chappell MD at [facility] Right: Knee [employer] [id number] 06/03/2031 [id number] / / [id number] Tibial Cone Implanted:Qty : 1 on 05/12/2024 by Tommy Chappell MD at [facility] Right: Knee [employer] [id number] 10/15/2030 [id number] / / [id number] Pressfit Stem Implanted:Qty : 1 on 05/12/2024 by Tommy Chappell MD at [facility] Right: Knee [employer] [id number] 05/23/2030 [id number] / / [id number] Femoral Component Implanted:Qty : 1 on 05/12/2024 by Tommy Chappell MD at [facility] Right: Knee [employer] [id number] 07/09/2029 [id number] / / [id number] Offset Notch Grinder Implanted:Qty : 1 on 05/12/2024 by Tommy Chappell MD at [facility] Right: Knee [employer] 01/26/2032 [id number] / / [id number] Insurance [employer] MEDICARE ADVANTAGE Advance Directives * Full Code (Latest Code Status on File) Date Activated Date Inactivated Comments 05/12/2024 4:59 PM 05/13/2024 4:30 PM Care Teams Assistant Food Service Manager Relationship Specialty Start Date End Date Quincy Blank MD PCP - General 04/06/24
--- OUTSIDE RECORDS SUMMARY | 2025-08-12 15:35 | XMS_ITS | Encounter Summary ---
Author Organization [facility] Address [address] [facility] [place] [address] Care Team Providers Care Medical Aides Teacher Name Role Phone Justino Zhang MD Primary Care Provider [phone] Encounter Details Date Type Department Care Team (Latest Contact Info) Description 08/08/2025 Travel Social History Tobacco Use Types Packs/Day Years [...] 08/24/2025 1:45 PM EDT Office Visit [facility] [address] [place] [phone] Zana Dahl DPM [address] [place], [place] [id number] 09/19/2025 9:30 AM EST Procedure Visit [facility] [address] [place] [address] Zana Dahl DPM [address] [place], [place] [phone] documented as of this encounter Visit Diagnoses Not on filedocumented in this encounter Care Teams Medical Aides Teacher Relationship Specialty Start Date End Date Justino Zhang MD [address] [place] [address] PCP - General Family Medicine 07/11/25 documented as of this encounter
--- OUTSIDE RECORDS SUMMARY | 2025-08-12 15:35 | XMS_ITS | Encounter Summary ---
Author Organization [facility] Sys [employer] Address [facility]-[id number] [address] [place] [address] Care Team Providers Care Plastic Jig And Fixture Builder Name Role Phone Justino Zhang MD Primary Care Provider [phone] Encounter Details Date Type Department Care Team ([facility] st Contact Info) Description 02/05/2023 Telephone [facility] [address] [address] Saida Aggarwal MD [address] [facility] [place] [address] Social History Tobacco Use Types [...] and Family Once a week 12/05/2019 Attends [employer] More than 4 times per year [...] Answer Date Recorded Total Score 0 12/23/2022 [facility] of Occupat ional Health - Occupational Stress [...] have Coronavirus / COVID-19? No / Unsure 01/30/2023 8:31 AM EDT documented as of this encounter Miscellaneous Notes * Telephone Encounter - Saida Aggarwal MD - 02/05/2023 10:54 AM EDT Sleep study denial received. Prior to seeing me the patient canceled his multiple sleep latency testing in polysomnogram. He needs a PAP titration. This was ordered on 01/27/2023. He is agreeable to having this testing done. documented in this encounter Plan of Treatment Upcoming Encounters Date Type Department Care Team ([facility] st Contact Info) Description 09/13/2025 11:30 AM EDT Office Visit [facility] [address] [place] [address] Saida Aggarwal MD [address] [facility] [address] [place] [address] 10/24/2025 3:00 PM EST Office Visit [facility] [address] [place] [phone] Justino Zhang MD [facility] [place], [place] [id number] documented as of this encounter Visit Diagnoses Not on filedocumented in this encounter Additional Health Concerns Assessment Noted Time PHQ-9 Depression Total Score: 0 12/23/19 23 7:00 AM EST A Body Mass Index follow-up plan has been documented for the patient 01/29/2022 11:45 AM EDT documented as of this encounter Care Teams Plastic Jig And Fixture Builder Relationship Specialty Start Date End Date Justino Zhang MD [address] [place] [address] PCP - General Internal Medicine 02/21/25 PETROS PierreN, RN CCM [facility] 04/07/24 documented as of this encounter
--- OUTSIDE RECORDS SUMMARY | 2025-08-12 15:35 | XMS_ITS | Encounter Summary ---
Author Organization [facility] Address [address] [facility] [place] [address] Care Team Providers Care Vp Mobile Products Name Role Phone Justino Zhang MD Primary Care Provider [phone] Encounter Details Date Type Department Care Team (Latest Contact Info) Description 08/09/2025 Travel Social History Tobacco Use Types Packs/Day [...] Office Visit [facility] [address] [place] [phone] Zana Dahl DPM [address] [place], [place] [phone] 09/19/2025 9:30 AM EST Procedure Visit [facility] [address] [place] [address] Zana Dahl DPM [address] [place], [place] [phone] documented as of this encounter Visit Diagnoses Not on filedocumented in this encounter Care Teams Vp Mobile Products Relationship Specialty Start Date End Date Justino Zhang MD [address] [place] [address] PCP - General Family Medicine 07/11/25 documented as of this encounter
--- OUTSIDE RECORDS SUMMARY | 2025-08-12 15:35 | XMS_ITS | Encounter Summary ---
Author Organization [facility] Sys [employer] Address [id number] [address] [place] [address] Care Team Providers Care Wrapper Rewinder Name Role Phone Justino Zhang MD Primary Care Provider [phone] Reason for Visit * Reason Onset Date Comments Med Refill 08/28/2021 Encounter Details Date Type Department Care Team (Late st Contact Info) Description 08/28/2021 Refill [facility] [address] [place] [phone] Asia Olson LPN Social History Tobacco Use [...] Answer Date Recorded Total Score 0 08/27/2021 [facility] [place] of Occupat ional Health - Occupational Stress [...] have Coronavirus / COVID-19? No / Unsure 08/27/2021 9:32 AM EDT documented as of this encounter Plan of Treatment Upcoming Encounters Date Type Department Care Team ([facility] st Contact Info) Description 09/13/2025 11:30 AM EDT Office Visit [facility] [address] [facility] [place] [address] Saida Aggarwal MD [address] [facility] [address] [place] [address] 10/24/2025 3:00 PM EST Office Visit [facility] [address] [place], [place] [address] [place] [address] Justino Zhang MD [address] [place] [address] documented as of this encounter Visit Diagnoses Not on filedocumented in this encounter Additional Health Concerns Assessment Noted Time PHQ-9 Depression Total Score: 0 08/27/20 21 9:00 AM EDT A Body Mass Index follow-up plan has been documented for the patient 07/31/2020 1:32 PM EDT documented as of this encounter Care Teams Wrapper Rewinder Relationship Specialty Start Date End Date Justino Zhang MD [address] [place] [id number] PCP - General Internal Medicine 02/21/25 ALEJANDRA Pierre, RN [facility] 04/07/24 documented as of this encounter
--- OUTSIDE RECORDS SUMMARY | 2025-08-12 15:35 | XMS_ITS | Clinical Summary ---
Author Organization [facility] Healthcare Address [address] [place] [address] Care Team Providers Care Supervisory Aide Name Role Phone Justino Zhang MD Primary Care Provider [phone] Allergies Active Allergy Reactions Criticality Noted Date Comments Cephalexin Other 08/09/2024 Medications atorvastatin (Lipitor) 10 MG tablet Take 10 mg by mouth at bedtime 2023 Active ferrous sulfate 325 (65 Fe) MG tablet Take 325 mg by mouth at bedtime 01/01/2023 Active furosemide (Lasix) 40 MG tablet Take 40 mg by mouth Daily 12/23/2022 Active nortriptyline (Pamelor) 75 MG capsule Take 75 mg by mouth 1 (one) time each day at the same time Active omeprazole (PriLOSEC) [address] capsule Take 20 mg by mouth at bedtime 2023 Active pramipexole (Mirapex) 1.5 MG tablet Take 1.5 mg by mouth in the morning and 1.5 mg in the evening and 1.5 mg before bedtime. 04/07/2023 Active Active Problems No known active problems Encounters Date Type Department Care Team Description 08/09/2025 1:30 PM EDT Office Visit [facility] [address] [place] [address] Zana Dahl, [place] Plantar wart, left foot (Primary Dx); Acquired keratoderma; Left foot pain; Difficulty walking 08/09/2025 Bamboo flowsheet [facility] acute hospital Podiatry [address] [place] [address] Zana Dahl DPM 08/09/2025 Travel 08/08/2025 Travel 07/11/2025 11:00 AM EDT Procedure Visit [facility] acute hospital [facility] [address] [place] [address] Zana Dahl DPM Onychomycosis (Primary Dx); Onychodystrophy; Pain around toenail, right foot; Pain around toenail, left foot 07/11/2025 Bamboo flowsheet [facility] acute hospital Podiatry [address] [place] [address] Zana Dahl DPM 07/11/2025 Travel 06/16/2025 2:15 PM EDT Office Visit [facility] acute hospital [facility] [address] [place] [address] Zana Dahl DPM Plantar wart, left foot (Primary Dx); Acquired keratoderma; Left foot pain; Difficulty walking 06/16/2025 Bamboo flowsheet [facility] acute hospital Podiatry [address] [place] [address] Zana Dahl DPM 06/16/2025 Travel 06/15/2025 Travel 06/02/2025 Travel from Last 3 Months Immunizations Immunization Administration Dates Next Due ABRYSVO - Respiratory syncyt ial virus (RSV), vaccine, bivalent, protein subunit RSV prefusion F, diluent reconstituted, 0.5 mL, PF 09/01/2023 Influenza, High Dose Seasona l, Preservative Free 08/29/2024 Influenza, High-dose Seasona l, Quadrivalent, Preservative Free 09/01/2023,08/07/2022,08/01/2021 Influenza, Seasonal, Quadriv alent, Adjuvanted 08/18/2020 Influenza, Unspecified 11/25/2019,09/13/2019, Influenza, injectable, quadr ivalent, preservative free 08/08/2018 Moderna Bivalent Booster Vaccination 04/29/2023 Moderna SARS-CoV-2 50mcg/0.5mL Booster Pneumococcal Conjugate PCV 13 08/08/2018 Pneumococcal Polysaccharide PPSV23 09/15/2019, Tdap 02/08/2019 Zoster, Recombinant 07/05/2023,04/29/2023,2018 Family History Medical History Relation Name Comments Stroke Father Pulmonary fibrosis Mother Lung disease Other Relation Name Status Comments Father Mother Other Social History Tobacco Use Types Packs/Day Years [...] Sign Reading Time Taken Comments Blood Pressure 138/80 02/16/2019 12:00 PM EDT Pulse - - Temperature - - Respiratory Rate - - Oxygen Saturation - - Inhaled Oxygen Concentration - - Weight 169 kg (373 lb) 08/09/2025 1:46 PM EDT Height 182.9 cm (6') 08/09/2025 1:46 PM EDT Body Mass Index 50.59 08/09/2025 1:46 PM EDT Plan of Treatment Upcoming Encounters Date Type Department Care Team (Late st Contact Info) Description 08/24/2025 1:45 PM EDT Office Visit [facility] [address] [place] [phone] Zana Dahl DPM [address] [place] [address] 09/19/2025 9:30 AM EST Procedure Visit [facility] [address] [place] [address] Zana Dahl DPM [address] [place], [place] [phone] Health Maintenance Due Date Last Done Comments CT Colonography 1952 FIT-DNA 1952 FIT 1952 FOBT 1952 Sigmoidoscopy 1952 Influenza Vaccine (#1) 2025 4, 09/01/2023, 08/07/2022, Additional history exists Colonoscopy 01/06/2033 01/06/2023 Colorectal Cancer Screening 01/06/2033 Pneumococcal Vaccine: 65+ Years Completed 09/15/2019, 08/08/2018, 09/06/2010 Insurance [employer]ARE Care Teams Supervisory Aide Relationship Specialty Start Date End Date Justino Zhang MD [address] [place] [address] PCP - General Family Medicine 07/11/25
--- OUTSIDE RECORDS SUMMARY | 2025-08-12 15:35 | XMS_ITS | Encounter Summary ---
Author Organization We[employer] s tem Address [id number] [address] [place] [address] Care Team Providers Care Supervisor Electronic Coils Name Role Phone Justino Zhang MD Primary Care Provider [phone] Reason for Visit * Reason Onset Date Comments Med Refill 01/04/2019 Encounter Details Date Type Department Care Team (Late Contact Info) Description 01/04/2019 Refill [facility] [address] [place] [address] Asia Olson LPN Social History Tobacco Use Types Packs/Day Years Used Date Smoking Tobacco: Never Smokeless Tobacco: Never Alcohol Use Standard Drinks/Week Comments No 0 (1 standard drink = 0.6 oz pur e alcohol) PHQ-2 Answer Date Recorded PHQ-2 Score 0 11/12/2018 Sex and Gender Information Value Date Recorded Sex Assigned at Not on file Legal Sex Male 11:29 AM EDT Gender Identity Not on file Sexual Orientation Not on file documented as of this encounter Plan of Treatment Upcoming Encounters Date Type Department Care Team (Late Contact Info) Description 09/13/2025 11:30 AM EDT Office Visit [facility] [address] [place] [address] Saida Aggarwal MD [address] [facility] [address] [place] [address] 10/24/2025 3:00 PM EST Office Visit [facility] [address] [place] [phone] Justino Zhang MD [address] [place] [id number] documented as of this encounter Visit Diagnoses Not on filedocumented in this encounter Additional Health Concerns Assessment Noted Time PHQ-9 Depression Total Score: 0 07/27/20 18 1:00 PM EDT A Body Mass Index follow-up plan has been documented for the patient 11/25/2018 9:46 AM EST documented as of this encounter Care Teams Supervisor Electronic Coils Relationship Specialty Start Date End Date Justino Zhang MD [address] [place] [address] PCP - General Internal Medicine 02/21/25 ALEJANDRA Pierre, RN [facility] 04/07/24 documented as of this encounter
--- OUTSIDE RECORDS SUMMARY | 2025-08-12 15:35 | XMS_ITS | Encounter Summary ---
Author Organization [facility] Address [address] [facility] [place] [address] Care Team Providers Care Acds Block 1 Operator Name Role Phone Justino Zhang MD Primary Care Provider [phone] Encounter Details Date Type Department Care Team (Late st Contact Info) Description 08/09/2025 Bamboo flowsheet [facility] [address] [place] [address] Zana Dahl DPM [address] [place], [place] [phone] Social History Tobacco Use Types Packs/Day Years [...] Office Visit [facility] [address] [place] [address] Zana Dahl DPM [address] [place], [place] [phone] 09/19/2025 9:30 AM EST Procedure Visit [facility] [address] [place] [address] Zana Dahl DPM [address] [facility] [place], [place] [phone] documented as of this encounter Visit Diagnoses Not on filedocumented in this encounter Care Teams Acds Block 1 Operator Relationship Specialty Start Date End Date Justino Zhang MD [address] [place], [place] [phone] PCP - General Family Medicine 07/11/25 documented as of this encounter
--- OUTSIDE RECORDS SUMMARY | 2025-08-12 15:35 | XMS_ITS | Encounter Summary ---
Author Organization [employer] Address [id number] [address] [place] [address] Care Team Providers Care Sales Engineer Name Role Phone Justino Zhang MD Primary Care Provider [phone] Encounter Details Date Type Department Care Team (Late st Contact Info) Description 05/23/2022 Orders Only [facility] [address] [place] [phone] Quincy Blank MD [address] Provider retired 02/15/25 [place], [place] [phone] Social History Tobacco Use Types Packs/Day Years [...] Answer Date Recorded Total Score 0 01/02/2022 [facility] of Occupat ional Health - Occupational Stress [...] Office Visit [facility] [address] [facility] [place] [address] Saida Aggarwal MD [address] [facility] [address] [place] [address] 10/24/2025 3:00 PM EST Office Visit [facility] [address] [place] [address] Justino Zhang MD [address] [place] [address] documented as of this encounter Visit Diagnoses Not on filedocumented in this encounter Additional Health Concerns Assessment Noted Time PHQ-9 Depression Total Score: 0 01/02/20 22 9:00 AM EST A Body Mass Index follow-up plan has been documented for the patient 01/29/2022 11:45 AM EDT documented as of this encounter Care Teams Sales Engineer Relationship Specialty Start Date End Date Justino Zhang MD [address] [place] [address] PCP - General Internal Medicine 02/21/25 ALEJANDRA Pierre, RN [facility] 04/07/24 documented as of this encounter
--- OUTSIDE RECORDS SUMMARY | 2025-08-12 15:35 | XMS_ITS | Encounter Summary ---
Author Organization [employer] Address [id number] [address] [place] [address] Care Team Providers Care Thread Machine Operator Name Role Phone Justino Zhang MD Primary Care Provider [phone] Reason for Referral * Cardiology (Routine) - Closed Specialty Diagnoses / Procedures Referred By Cici fournier Referred To Contact Diagnoses Chronic pain of right knee Preop testing Procedures ECG 12 lead Quincy Blank MD [address] Provider retired 02/15/25 [place] [address] Phone: tel: fax: Referral ID Status Reason Start Date Expiration Date Visits Re quested Visits Authorized [id number] Closed 04/20/2024 04/20/2025 1 1 Encounter Details Date Type Department Care Team (Late st Contact Info) Description 04/20/2024 Orders Only [facility] [place] [address] Quincy Blank MD [address] Provider retired 02/15/25 [place], [place] [phone] Chronic pain of right knee (Primary Dx); Preop testing Social History Tobacco Use Types Packs/Day Years [...] and Family Once a week 12/05/2019 Attends Mandaeism Services More than 4 times per year [...] PHQ-2 Answer Date Recorded Total Score 0 03/11/2024 [facility] of Occupat ional Health - Occupational [...] got money to buy more. Never True 03/11/2024 Within the past 12 months th e food we bought just didn't last and we didn't have money to get more. Never True 03/11/2024 Purpose - Life Answer Date Recorded Purpose [...] Visit [facility] [address] [place] [phone] Saida Aggarwal MD [address] [facility] [address] [place] [address] 10/24/2025 3:00 PM EST Office Visit [facility] [address] [facility] [place] [address] Justino Zhang MD [address] [place], [place] [phone] documented as of this encounter Results * ECG 12 lead (04/22/2024 8:20 AM EDT) 04/22/2024 8:20 AM EDT Narrative [facility] - 04/22/2024 2:18 PM EDT us Quincy Blank MD ECG ORDERABLES Final [facility] documented in this encounter Visit Diagnoses Diagnosis Chronic pain of right knee- Primary Preop testing Unspecified pre-operative examination Chronic pain of right knee Preop testing Unspecified pre-operative examination documented in this encounter Additional Health Concerns Assessment Noted Time PHQ-9 Depression Total Score: 0 03/11/20 7:00 AM EDT A Body Mass Index follow-up plan has been documented for the patient 01/29/2022 11:45 AM EDT documented as of this encounter Care Teams Thread Machine Operator Relationship Specialty Start Date End Date Justino Zhang MD [facility] [place] [address] PCP - General Internal Medicine 02/21/25 ALEJANDRA Pierre, RN [facility] 04/07/24 documented as of this encounter
--- OUTSIDE RECORDS SUMMARY | 2025-08-12 15:35 | XMS_ITS | Encounter Summary ---
Author Organization [employer] Address [facility]-[id number] [address] [place] [address] Care Team Providers Care Phone Banker Name Role Phone Justino Zhang MD Primary Care Provider [phone] Encounter Details Date Type Department Care Team (Late st Contact Info) Description 01/21/2023 Telephone [facility] [address] [place] [address] Quincy Blank MD [address] Provider retired 02/15/25 [place], [place] [phone] Social History Tobacco Use Types Packs/Day Years [...] and Family Once a week 12/05/2019 Attends Gnosticism Services More than 4 times per year [...] Answer Date Recorded Total Score 0 12/23/2022 [facility] [place] of Occupat ional Health - Occupational Stress [...] have Coronavirus / COVID-19? No / Unsure 01/20/2023 10:19 AM EST documented as of this encounter Plan of Treatment Upcoming Encounters Date Type Department Care Team ([facility] st Contact Info) Description 09/13/2025 11:30 AM EDT Office Visit [facility] [address] [facility] [place] [address] Saida Aggarwal MD [address] [facility] [address] [place] [address] 10/24/2025 3:00 PM EST Office Visit [facility] [address] [place] [address] [place] [address] [place] [address] documented as of this encounter Visit Diagnoses Not on filedocumented in this encounter Additional Health Concerns Assessment Noted Time PHQ-9 Depression Total Score: 0 12/23/19 23 7:00 AM EST A Body Mass Index follow-up plan has been documented for the patient 01/29/2022 11:45 AM EDT documented as of this encounter Care Teams Phone Banker Relationship Specialty Start Date End Date Justino Zhang MD [facility] [place] [address] PCP - General Internal Medicine 02/21/25 ALEJANDRA Pierre, RN [facility] 04/07/24 documented as of this encounter
--- OUTSIDE RECORDS SUMMARY | 2025-08-12 15:35 | XMS_ITS | Encounter Summary ---
Author Organization [facility] [employer] Address [id number] [address] [place] [address] Care Team Providers Care Head Mva Reactor Operator Name Role Phone Justino Zhang MD Primary Care Provider [phone] Encounter Details Date Type Department Care Team (Late st Contact Info) Description 01/24/2023 Documentation [facility] [address] [phone] Ashley Bertrand LPN Social History Tobacco Use [...] and Family Once a week 12/05/2019 Attends Rastafarian Services More than 4 times per year [...] Answer Date Recorded Total Score 0 12/23/2022 [facility] [place] of Occupat ional Health - Occupational Stress [...] Pulmonary/Sleep Medicine [address] [facility] [place] [address] Saida Aggarwal MD [address] [facility] [address] [place] [address] 10/24/2025 3:00 PM EST Office Visit [facility] [address] [place] [address] Justino Zhang MD [address] [place] [address] documented as of this encounter Visit Diagnoses Not on filedocumented in this encounter Additional Health Concerns Assessment Noted Time PHQ-9 Depression Total Score: 0 12/23/19 23 7:00 AM EST A Body Mass Index follow-up plan has been documented for the patient 01/29/2022 11:45 AM EDT documented as of this encounter Care Teams Head Mva Reactor Operator Relationship Specialty Start Date End Date Justino Zhang MD [address] [place] [address] PCP - General Internal Medicine 02/21/25 ALEJADNRA Pierre, RN [facility] 04/07/24 documented as of this encounter
--- OUTSIDE RECORDS SUMMARY | 2025-08-12 15:35 | XMS_ITS | Encounter Summary ---
Author Organization [employer] Address [id number] [address] [place] [address] Care Team Providers Care Hide Examiner Name Role Phone Justino Zhang MD Primary Care Provider [phone] Reason for Visit * Reason Onset Date Comments Restless Leg Discomfort 09/18/2020 Encounter Details Date Type Department Care Team (Late st Contact Info) Description 09/18/[address] [facility] [address] [facility] [place] [address] Zeyad Granados CMA Restless Leg Discomfort Social History Tobacco Use Types Packs/Day Years [...] and Family Once a week 12/05/2019 Attends Voodoo Services More than 4 times per year [...] Answer Date Recorded PHQ-2 Score 0 09/19/2020 [facility] [place] of Occupat ional Health - Occupational Stress [...] AM EST documented as of this encounter Miscellaneous Notes * Telephone Encounter - Zeyad Granados CMA - 09/18/2020 10:01 AM EST Patient phoned the office this morning to ask if something different can be done to help with his restless legs. Patient states that he is in a good deal of discomfort and that the gabapentin he received from Dr. Mariscal's office is not working as hoped. He also mentions difficulty in contacting Dr. Mariscal's office. This patient would like to be seen to discuss this matter. Please advise and I will reach out to patient. Zeyad Grnaados CMA 09/18/20 1006 * Telephone Encounter - Quincy Blank MD - 09/18/2020 10:01 AM EST 1)Normally I would agree that he should f/u with Dr Mariscal 2)However if he has problems getting through to their office, I cn see him about this * Telephone Encounter - Zeyad Granados CMA - 09/18/2020 10:01 AM EST Patient was notified and scheduled. Zeyad Granados CMA 09/18/20 1636 documented in this encounter Plan of Treatment Upcoming Encounters Date Type Department Care Team (Late st Contact Info) Description 09/13/2025 11:30 AM EDT Office Visit [facility] [address] [place] [phone] Saida Aggarwal MD [address] [facility] [address] [place] [address] 10/24/2025 3:00 PM EST Office Visit [facility] [address] [place] [phone] [place] [address] [place] [phone] documented as of this encounter Visit Diagnoses Not on filedocumented in this encounter Additional Health Concerns Assessment Noted Time PHQ-9 Depression Total Score: 9 07/29/20 20 9:25 PM EDT A Body Mass Index follow-up plan has been documented for the patient 07/31/2020 1:32 PM EDT documented as of this encounter Care Teams Hide Examiner Relationship Specialty Start Date End Date Justino Zhang MD [facility] [place], [place] [phone] PCP - General Internal Medicine 02/21/25 ALEJANDRA Pierre, RN [facility] 04/07/24 documented as of this encounter
--- OUTSIDE RECORDS SUMMARY | 2025-08-12 15:35 | XMS_ITS | Encounter Summary ---
Author Organization [employer] Address [facility] [place]-[id number] [address] [place] [address] Care Team Providers Care Certified Solid Waste Facility Operator Name Role Phone Justino Zhang MD Primary Care Provider [phone] Encounter Details Date Type Department Care Team (Late st Contact Info) Description 12/03/2019 Telephone [facility] [address] [place] [address] Quincy Blank MD [address] Provider retired 02/15/25 [place], [place] [phone] Social History Tobacco Use Types Packs/Day Years [...] and Family Once a week 12/05/2019 Attends Zoroastrian Services More than 4 times per year [...] PHQ-2 Answer Date Recorded PHQ-2 Score 0 10/18/2019 [facility] [place] of Occupat ional Health - Occupational Stress [...] Employment Answer Date Recorded Employment No 12/05/2019 Sex and Gender Information Value Date Recorded Sex Assigned at Not on file Legal Sex Male 11:29 AM EDT Gender Identity Not on file Sexual Orientation Not on file documented as of this encounter Functional Status documented as of this encounter Plan of Treatment Upcoming Encounters Date Type Department Care Team (Late st Contact Info) Description 09/13/2025 11:30 AM EDT Office Visit [facility] [address] [place] [address] Saida Aggarwal MD [address] [facility] [address] [place] [address] 10/24/2025 3:00 PM EST Office Visit [facility] [address] [place] [phone] Justino Zhang MD [address] [place] [phone] documented as of this encounter Visit Diagnoses Not on filedocumented in this encounter Additional Health Concerns Assessment Noted Time PHQ-9 Depression Total Score: 0 10/18/20 10:00 AM EST A Body Mass Index follow-up plan has been documented for the patient 01/25/2019 11:06 AM EDT documented as of this encounter Care Teams Certified Solid Waste Facility Operator Relationship Specialty Start Date End Date Justino Zhang MD [address] [place] [address] PCP - General Internal Medicine 02/21/25 Luba Sanz, PETROSN, RN [facility] Nurse - [facility] 04/07/24 documented as of this encounter
--- OUTSIDE RECORDS SUMMARY | 2025-08-12 15:35 | XMS_ITS | Patient Health Record ---
Author Organization [facility] [place] Address [address] [place] [address] Care Team Providers Care Extern Name Role Phone Quincy Blank MD Primary Care Provider Unavail able Reason For Referral No Information Plan Of Treatment No Information Insurance Providers Payer Name Payer Address Payer Phone Subscriber Number Group Number Insured Name Patient Relationship to Insured Coverage Start Date Coverage End Date SELF PAY ON PATIENT [employer] Royce Arizmendi Self - patient is the insured 0
--- OUTSIDE RECORDS SUMMARY | 2025-08-12 15:35 | XMS_ITS | Encounter Summary ---
Author Organization [employer] Address [id number] [address] [place] [address] Care Team Providers Care Technology Education Teacher Name Role Phone Justino Zhang MD Primary Care Provider [phone] Encounter Details Date Type Department Care Team (Late st Contact Info) Description 08/06/2024 Orders Only [facility] [address] [place] [phone] Quincy Blank MD [address] Provider retired 02/15/25 [place], [place] [id number] Social History Tobacco Use Types Packs/Day Years Used Date Smoking Tobacco: Never Smokeless Tobacco: Never Alcohol Use Standard Drinks/Week Comments No 0 (1 standard drink = 0.6 oz pur e alcohol) [facility] Utilities Answer Date Recorded In the past 12 months has [employer], gas, oil, or water [employer] threatened to shut off services in your home? No 07/30/2024 Social Connection and Isolat ion Panel [NHANES] Answer Date Recorded Frequency of Communication w ith Friends and Family Twice a week 12/05/2019 Frequency of Social Gatherin gs with Friends and Family Once a week 12/05/2019 Attends [employer] [facility] More than 4 times per year [...] PHQ-2 Answer Date Recorded Total Score 0 08/09/2024 [facility] - Occupational Stress Questionnaire Answer [...] got money to buy more. Never True 08/09/2024 Within the past 12 months th e food we bought just didn't last and we didn't have money to get more. Never True 08/09/2024 Purpose - Life Answer Date Recorded Purpose [...] Visit [facility] [address] [place] [phone] Saida Aggarwal MD [address] [facility] [address] [place], [place] [id number] 10/24/2025 3:00 PM EST Office Visit [facility] [address] [place] [address] Justino Zhang MD [address] [place] [address] documented as of this encounter Goals [...] documented as of this encounter Care Teams Technology Education Teacher Relationship Specialty Start Date End Date Justino Zhang MD [address] [place] [address] PCP - General Internal Medicine 02/21/25 Luba Sanz, PETROSN, RN [facility] 04/07/24 documented as of this encounter
--- OUTSIDE RECORDS SUMMARY | 2025-08-12 15:35 | XMS_ITS | Clinical Summary ---
Author Organization [employer] tem Address [id number] [address] [place] [address] Care Team Providers Care Second Facing Baster Name Role Phone Justino Zhang MD Primary Care Provider [phone] Allergies Active Allergy Reactions Criticality Noted Date Comments Cephalexin pain 08/09/2024 Medications aspirin 81 mg Take 1 tablet (81 mg total) by mouth in the morning. Active mupirocin (BACTROBAN) 2 % ointment Apply 1 Application topically 3 (three) times a day. 22 g 02/22/20 25 Active Additional Information Patient not taking.Reported on 07/25/2025 ferrous sulfate 325 (65 FE) MG tabletIndicati ons:Other iron deficiency anemia Take 1 tablet (325 mg total) by mouth in the morning. 30 tablet 3 04/28/20 25 Active pramipexole (MIRAPEX) 1.5 mg tablet TAKE 1 TABLET BY MOUTH 3 TIMES A DAY 270 tablet 1 05/18/20 25 Active atorvastatin (LIPITOR) 10 mg tablet TAKE ONE TABLET BY MOUTH ONCE NIGHTLY 90 tablet 1 05/18/20 25 Active omeprazole (PriLOSEC) 20 mg capsule Take 1 capsule (20 mg total) by mouth every morning before breakfast. 90 capsule 1 07/25/20 25 Active furosemide (LASIX) 40 mg tabletIndicati ons:Lymphedema of both lower extremities Take 1 tablet (40 mg total) by mouth every 12 (twelve) hours. 90 tablet 3 07/25/20 25 Active traZODone (DESYREL) 150 mg tabletIndicati ons:Insomnia due to medical condition Take 1 tablet (150 mg total) by mouth nightly. 30 tablet 3 08/03/20 25 Active furosemide (LASIX) 40 mg tabletIndicati ons:Lymphedema of both lower extremities Take 1 tablet (40 mg total) by mouth daily. 90 tablet 3 09/28/20 24 025 Discontinued omeprazole (PriLOSEC) 20 mg capsule TAKE ONE CAPSULE BY MOUTH ONCE NIGHTLY 90 capsule 1 05/16/20 25 025 Discontinued(R eorder) doxycycline (VIBRAMYCIN) 100 mg capsule Take 1 capsule (100 mg total) by mouth in the morning and 1 capsule (100 mg total) before bedtime. Do all this for 10 days. 20 capsule 07/11/20 25 025 doxycycline (VIBRAMYCIN) 100 mg capsuleIndicat ions:Celluliti s of right lower leg,Cellulitis of left lower leg Take 1 capsule (100 mg total) by mouth in the morning and 1 capsule (100 mg total) before bedtime. Do all this for 7 days. 14 capsule 07/25/20 25 025 Active Problems Patient Care Coordination No te Formatting of this note migh t be different from the original. HTN and Hypercholesterolemia Care Plan Patient barriers to better managing their health include: Physical limitations including reduced strength Nurse to instruct on: the purpose of your medications and the importance of adherence 11/01/24 CC RN the importance of your care plan the importance of preventative screenings and what they mean to your health proper use of your blood pressure meter your Hypercholesterolemia and Hypertension, its diagnosis and treatment the importance of recognizing dietary intake as a S&S of your Hypercholesterolemia the importance of recognizing blood spots in eyes, blurry vision, confusion, dizziness, facial flushing, fatigue, headache, lightheadedness, nosebleeds, and shortness of breath as a S&S of your Hypertension 04/25/25 CC RN Nurse to assist in: scheduling your appointments, as needed setting a goal to address risk of falling, continue with current treatment plans, create a safe home environment, do regular physical activity, get a blood pressure meter, check blood pressure, and maintain medication compliance Patient to verbalize understanding of: the importance of your care plan keeping a written list of your medications preventative screenings and what they mean to your health your medications and the importance of adherence monitoring blood pressure 04/25/25 CC RN monitoring heart rate monitoring HDL cholesterol monitoring LDL cholesterol monitoring Lipids your Hypercholesterolemia, its diagnosis, process and treatment your Hypertension, its diagnosis, process and treatment the importance of recognizing dietary intake as a S&S of your Hypercholesterolemia the importance of recognizing blood spots in eyes, blurry vision, confusion, dizziness, facial flushing, fatigue, headache, lightheadedness, nosebleeds, and shortness of breath as a S&S of your Hypertension 06/28/25 CC RN Patient to commit to: address risk of falling continue with current treatment plans 04/25/25 CC RN create a safe home environment do regular physical activity 06/28/25 CC RN -SN mailed Chair exercises to encourage daily activities 06/28/25 CC RN get a blood pressure meter check blood pressure 02/22/25 CC RN maintain medication compliance Lymphedema [10/25/2024] CC RN Added: Nurse to instruct on: proper use of your Compression pumps 10/25/24 CC RN 11/01/24 CC RN your Lymphedema, its diagnosis and treatment 10/25/24 CC RN 11/01/24 CC RN 03/01/25 CC RN the importance of recognizing abnormally dark or light skin, ankle edema, difficulty maintaining activities of daily living (adls), lack of energy, local inflammation, and swelling in your lower extremities as a S&S of your Lymphedema 10/25/24 CC RN 11/01/24 CC RN 11/08/24 CC RN Nurse to assist in: setting a goal to achieve a healthy weight, address risk of falling, continue with current treatment plans, create a safe home environment, do regular physical activity, increase joint mobility and range of motion, and maintain medication compliance Patient to verbalize understanding of: monitoring Pain Scale Your Lymphedema, its diagnosis, process and treatment 10/25/24 CC RN 11/01/24 CC RN 11/08/24 CC RN -SN mailed information on compression hose CC RN the importance of recognizing abnormally dark or light skin, ankle edema, difficulty maintaining activities of daily living (adls), lack of energy, local inflammation, and swelling in your lower extremities as a S&S of your Generic Condition 10/25/24 CC RN 02/1525 CC RN Patient to commit to: achieve a healthy weight 03/01/25 CC RN address risk of falling continue with current treatment plans create a safe home environment do regular physical activity 06/28/25 CC RN increase joint mobility and range of motion 06/28/25 CC RN maintain medication compliance 10/25/24 CC RN 11/01/24 CC RN 11/08/24 CC RN 02/22/2025 CC RN 03/01/25 CC RN 2023 Wellness Goals Over the next 12 months, Patient will go to appointments with: Swatch Maker 08/12/2024 Orthopedic 08/30/2024 Dentist Coater Smoking Pipe Primary Care Provider 09/30/2024 10/21/24 CC RN Over the next 12 months, Patient will complete the following tests, immunizations, and preventative screenings: Eye Exam COVID-19 Vaccination 08/29/2024 CC RN Annual Wellness Visit 10/21/2024 CC RN Flu vaccine 08/29/24 CC account resolution expert Work 2023 Education 07/16/24 SN educated on CCM program, completed med rec, mailed CP letter. MS 11/15/24 Complex care letter mailed CC RN 2024 WELLNESS GOALS [02/22/2025] CC RN Added: Over the next 12 months, Patient will go to appointments with: Primary Care Provider 02/21/2025 CC RN 02/28/25 CC RN Swatch Maker 04/06/2025 CC RN Neurologist Vascular surgeon Over the next 12 months, Patient will complete the following tests, immunizations, and preventative screenings: Annual Wellness Visit 10/24/2025 Depression Screening 02/21/2025 CC RN Fall Risk Assessment 10/24/2025 Flu vaccine 07/18/2025 Lab Work 04/27/25 CC RN 2024 SELF CARE GOALS [02/22/2025] CC RN Added: Patient self care goals are: Remain free from cellulitis infection -SN mailed education on wound care 2024 PATIENT EDUCATION 04/25/25 SN mailed information on nutrition and wound healing CC RN Problem Noted Date Diagnosed Date Arthritis of left sacroiliac joint 02/21/2025 Cellulitis of right lower leg 07/30/2024 Lymphangitis 06/24/2024 Assessment & Plan (06/24/2024 11:28 AM EDT): Continue antibiotics. Complex decongestive therapy and lymphedema clinic referral. 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, initial encounter 05/12/2024 Presence of right artificial knee joint 05/12/20 24 S/P total knee arthroplasty, right 05/12/2024 Neuralgia 06/11/2023 Balance problems 08/13/2022 Excessive daytime sleepiness 08/13/2022 Muscle weakness 01/23/2022 Cervical stenosis of spinal canal 01/02/2022 Weakness of both lower limbs 08/27/2021 Restless leg syndrome 04/19/2021 Psychophysiological insomnia 04/19/2021 Chronic midline low back pain without sciatica 0 04/19/2021 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 I also recommended using his lymphedema pump. He will see the lymphedema clinic soon. Assessment & Plan (06/24/2024 11:28 AM EDT): Complex decongestive therapy. Referral to the lymphedema clinic. Knee mass, right 10/01/2019 Primary osteoarthritis of right knee 07/14/2019 Closed fracture of one rib of right side with no nunion 12/17/2018 Adenomatous polyp of transverse colon 10/19/2018 Encounter for colonoscopy due to history of colo efraín polyp 09/08/2018 STEFF (obstructive sleep apnea) 11/25/2016 Dyspnea 11/25/2016 Non morbid obesity 11/25/2016 Essential hypertension 11/25/2016 Hyperlipidemia 11/25/2016 Gastroesophageal reflux disease without esophagi tis 11/25/2016 Resolved Problems Problem Noted Date Diagnosed Date Resolved Date Myelopathy 01/02/2022 01/23/2022 Class 3 severe obesity with body mass index (BMI) of 45.0 to 49.9 in adult 04/13/2020 Morbid obesity with BMI of 40.0-44.9, adult 01/19/2018 02/21/2025 Encounters Date Type Department Care Team Description 08/04/2025 Patient Outreach [facility] [address] [place] [address] Justino Zhang MD Essential hypertension (Primary Dx); Pure hypercholesterolemia 08/03/2025 Orders Only [facility] [address] [place] [address] Justino Zhang MD Insomnia due to medical condition (Primary Dx) 08/03/2025 Results Follow-Up [facility] [address] [place] [address] Justino Zhang MD Multiple labs 08/03/2025 Orders Only [facility] [address] [place] [address] External, Scanning Provider 07/29/2025 Results Follow-Up [address] [address] Marilee Michelle APRN-STEPHEN Basic Metabolic Panel 07/29/2025 Orders Only [address] [address] Ev Hedaley CMA Lymphedema of both lower extremities; Cellulitis of right lower leg; Cellulitis of left lower leg 07/27/2025 Patient Outreach [address] [place] [address] Justino Zhang MD Essential hypertension (Primary Dx); Pure hypercholesterolemia 07/25/2025 10:15 AM EDT Office Visit [address] [place] [address] Justino Zhang MD Cellulitis of right lower leg (Primary Dx); Cellulitis of left lower leg; Lymphedema of both lower extremities 07/25/2025 Travel 07/11/2025 9:30 AM EDT Office Visit [facility] [address] [place] [phone] Marilee Michelle APRN-STEPHEN Lymphedema of both lower extremities (Primary Dx); Cellulitis of right lower leg; Cellulitis of left lower leg 07/11/2025 Travel 06/28/2025 [facility] Outreach [facility] [address] [phone] Justino Zhang MD Essential hypertension (Primary Dx); Pure hypercholesterolemia 05/23/2025 [facility] [address] [address] Justino Zhang MD Essential hypertension (Primary Dx); Pure hypercholesterolemia 05/18/[address] [address] Quincy Blank MD 05/14/[address] [address] Quincy Blank MD from Last 3 Months Immunizations Immunization Administration Dates Next Due COVID-19, mRNA, LNP-S, PF, 30mcg/0.3mL Dose 01/15,01/06/2021 Covid-19, Mrna, Lnp-s, Bival ent, Pf, 10 Mcg/0.2 Ml 04/29/2023 Covid-19, Mrna, Lnp-s, Bival ent, Pf, 30mcg/0.3 ml 04/29/2023 Covid-19, Mrna, Lnp-s, Pf,tr is-sucrose,30 Mcg/0.3ml Seasonal 08/29/2024,09/01/2023 Influenza High Dose Preservative Free IM 024 Influenza Vaccine, Quadrivalent, Adjuvanted 12/2019 Influenza, High-dose, Quadrivalent 09/01/2023,,08/01/2021 Influenza, Injectable, quadrivalent (PF) 018 Influenza, Unspecified 11/25/2019,09/13/2019, Pneumococcal Conjugate 13-Valent 08/08/2018 Pneumococcal Polysaccharide 09/15/2019, 0 RSV, bivalent, protein subun it RSVpreF, diluent reconstituted, 0.5 mL, PF 09/01/2023 Tdap 02/08/2019 Zoster Vaccine Recombinant 07/05/2023,04/29/2023 ,11/08/2019 Family History Medical History Relation Name Comments Colon cancer Brother KIP ARIZMEDNI Early Brother KIP ARIZMENDI PROSTATE Prostate cancer Brother KIP ARIZMENDI Stroke Father CALVIN ARIZMENDI Lung cancer Mother Emmanuelle Lung disease Mother Emmanuelle Pulmonary Fibro sis Anesthesia problems Neg Hx Bleeding Disorder Neg Hx Relation Name Status Comments Brother KIP ARIZMENDI Father CALVIN ARIZMENDI Mother Emmanuelle Social History Tobacco Use Types Packs/Day Years Used Date Smoking Tobacco: Never Smokeless Tobacco: Never Tobacco Cessation:Counseling Given: Not Answered Alcohol Use Standard Drinks/Week Comments No 0 (1 standard drink = 0.6 oz pur e alcohol) [employer] Utilities Answer Date Recorded In the past 12 months has e Where [employer] Be[employer], gas, oil, or water [employer] threatened to shut off services in your home? No 07/30/2024 Social Connection and Isolat ion Panel [NHANES] Answer Date Recorded Frequency of Communication w ith Friends and Family Twice a week 12/05/2019 Frequency of Social Gatherin gs with Friends and Family Once a week 12/05/2019 Attends Gn[employer] Services More than 4 times per year [...] Answer Date Recorded Total Score 0 07/25/2025 [facility] [place] of Occupat ional Health - Occupational Stress [...] Sign Reading Time Taken Comments Blood Pressure 110/72 07/25/2025 10:09 AM EDT Pulse 80 07/25/2025 10:09 AM EDT Temperature 35.4 C (95.7 F) 10/21/2024 2:39 PM EST Respiratory Rate 20 07/25/2025 10:09 AM EDT Oxygen Saturation 97% 07/25/2025 10:09 AM EDT Inhaled Oxygen Concentration - - Weight 171.5 kg (378 lb) 07/25/2025 10:09 AM EDT Height 182.9 cm (6' 0.01 ) 03/08/2025 11:05 AM E DT Body Mass Index 51.25 03/08/2025 11:05 AM EDT Plan of Treatment Upcoming Encounters Date Type Department Care Team (Late st Contact Info) Description 09/13/2025 11:30 AM EDT Office Visit [facility] [address] [place] [address] Saida Aggarwal MD [address] [facility] [address] [place] [address] 10/24/2025 3:00 PM EST Office Visit [facility] [address] [place] [address] Justino Zhang MD [address] [place], [place] [id number] Health Maintenance Due Date Last Done Comments COVID-19 Vaccine (2023-2 5 season) 2025 08/29/2024, 09/01/2023, 04/29/2023, Additional history exists Influenza Vaccine 07/18/2025 08/29/2024, , 08/07/2022, Additional history exists Fall Risk Screening 10/21/2025 10/21/2024 Medicare Annual Wellness Visit 10/21/2025 1 12/22/2023, 09/29/2023, 09/09/2022, Additional history exists Adult BMI Follow Up Plan 07/25/2026 07/25/2025 Adult BMI Screening 07/25/2026 07/25/2025 Depression Screening 07/25/2026 07/25/2025 Tobacco Screening 07/25/2026 07/25/2025 Colonoscopy 01/06/2028 01/06/2023, 12/19, 08/30/2013, Additional history exists DTaP,Tdap and Td Vaccines (2 - Td or Tdap) 02/08/2029 02/08/2019 Zoster (Shingles) Vaccine Completed 2022, 04/29/2023, 11/08/2019 Goals Goal Patient Goal Type Associated Problems Recent Progress Patient-Stated? Author home General Yes Renuka Levy LSW Note: Evaluation of progress towards goal: feeling better, hopes to DC to home today Medical Devices Implanted Type Area Bleacher Pulp Device Identifier Shelf Expiration Date Model / Serial / Lot Cmnt Bn Bio 40gm Rpl [id number] - [id number] Implanted:Qty: 2 on 07/14/2019 by Chico Sutton MD at [facility] Cement Right: Knee Ra [employer] 04/16/2023 [id number] / / [id number] Mesh Pariten Ds 55g99ul X1 Rpl [id number]+Cmt - [id number] Implanted:Qty: 1 on 12/15/2019 by Ramon Monson DO at [facility] Mesh N/A: Abdomen [employer] 01/14/2021 [id number] / / [id number] Cmpt Fem 7 Kn Rt Crcte Rtn Gns - [id number] Implanted:Qty: 1 on 07/14/2019 by Chico Sutton MD at [facility] Orthopedic Implant Right: Knee [employer] NEPHEW ORTHO 05/09/2029 [id number] / / [id number] Kn Sn Std Ps Cr Inc Mtn Construct - [id number] Implanted:Qty: 1 on 07/14/2019 by Chico Sutton MD at [facility] Orthopedic Implant Right: Knee [employer] SN-1 / / Oval Harriett Ii Resurfacing Patellar Component Implanted:Qty: 1 on 07/14/2019 by Chico Sutton MD at [facility] Patella Right: Knee [employer] Nephew 08/16/2028 [id number] / / [id number] Bsplt Tib 5 Rt Kn Gnss Ii Npor - [id number] Implanted:Qty: 1 on 07/14/2019 by Chico Sutton MD at [facility] Plate Right: Knee [employer]HEW ORTHO 01/27/2027 [id number] / / [id number] Tonny Tka Legion Cr Xlpe High Flexion Articular Insert Implanted:Qty: 1 on 07/14/2019 by Chico Sutton MD at [facility] Right: Knee [employer] 07/01/2025 [id number] / / [id number] Procedures Procedure Name Priority Date/Time Associated Diagnosis Comments MULTIPLE LABS Routine 07/20/2025 BASIC METABOLIC PANEL Routine 07/20/2025 Lymphedema of both lower extremities Cellulitis of right lower leg Cellulitis of left lower leg PROVATION COLONOSCOPY Routine 01/06/2023 8:38 AM EST from Last 3 Months or Most Recently Relevant to Health Maintenance Results * Multiple labs (07/20/2025) 07/20/2025 us Scanning Provider External [facility] Final Result Performing Organization Address City/[facility]/ZIP Co de Phone Number MANUALLY TRANSCRIBED RESULTS * Basic Metabolic Panel (07/20/2025) Blood Venous blood / Unknown 07/20/2025 us Marilee Michelle CONSUMER EDUCATION SPECIALIST-RADIO MECHANIC HELPER LAB BLOOD ORDERABLES Final Result Performing Organization Address City/[facility]/ZIP Co de Phone Number MANUALLY TRANSCRIBED RESULTS * Colonoscopy Report (01/06/2023 8:38 AM EST) Narrative SYSTEMGENERATED, DOCUMENTATION - 01/06/2023 8:38 AM EST This order has been auto-finalized for image and report archival in PACs. *For full report details, please reach out to your physician. This image is visible to you in MyChart.* us Herman Haley DO IMG OR IMG ORDERABLES Final Result from Last 3 Months or Most Recently Relevant to Health Maintenance Insurance [employer] MEDICARE Advance Directives * Full Code (Latest Code Status on File) Date Activated Date Inactivated Comments 07/30/2024 7:52 PM 08/02/2024 3:17 PM * Full Code Date Activated Date Inactivated Comments 05/25/2024 4:07 PM 05/27/2024 5:42 PM * Full Code Date Activated Date Inactivated Comments 07/14/2019 6:11 PM 07/15/2019 7:07 PM Care Teams Second Facing Baster Relationship Specialty Start Date End Date Justino Zhang MD [address] [place] [address] PCP - General Internal Medicine 02/21/25 PETROS PierreN, RN [facility] Nurse - [facility] 04/07/24
--- OUTSIDE RECORDS SUMMARY | 2025-08-12 15:35 | XMS_ITS | Encounter Summary ---
[facility] Address [facility] [id number] [address] [place] [address] Care Team Providers Care Continuous Improvement Director Name Role Phone Justino Zhang MD Primary Care Provider [phone] Encounter Details Date Type Department Care Team (Late Contact Info) Description 11/26/2019 Telephone [facility] General Surgery-Tra[facility] [address] [place] [phone] Pasha Vazquez CMA Social History Tobacco Use Types Packs/Day Years Used Date Smoking Tobacco: Never Smokeless Tobacco: Never Alcohol Use Standard Drinks/Week Comments No 0 (1 standard drink = 0.6 oz pur e alcohol) PHQ-2 Answer Date Recorded PHQ-2 Score 0 10/18/2019 Childcare Answer Date Recorded Childcare Unknown 04/28/2019 Employment Answer Date Recorded Employment Unknown 04/28/2019 Sex and Gender Information Value Date Recorded Sex Assigned at Not on file Legal Sex Male 11:29 AM EDT Gender Identity Not on file Sexual Orientation Not on file documented as of this encounter Plan of Treatment Upcoming Encounters Date Type Department Care Team (Late Contact Info) Description 09/13/2025 11:30 AM EDT Office Visit [facility] Pulmonary/Sleep Medicine [address] [phone] Saida Aggarwal MD [address] [facility] [address] [place] [address] 10/24/2025 3:00 PM EST Office Visit [facility] Family Medicine [address] [place] [phone] Justino Zhang MD [address] [place], [place] [id number] documented as of this encounter Visit Diagnoses Not on filedocumented in this encounter Additional Health Concerns Assessment Noted Time PHQ-9 Depression Total Score: 0 10/18/20 19 10:00 AM EST A Body Mass Index follow-up plan has been documented for the patient 01/25/2019 11:06 AM EDT documented as of this encounter Care Teams Continuous Improvement Director Relationship Specialty Start Date End Date Justino Zhang MD [address] [place] [id number] PCP - General Internal Medicine 02/21/25 ALEJANDRA Pierre, RN [facility] 04[facility]24 documented as of this encounter
--- OUTSIDE RECORDS SUMMARY | 2025-08-12 15:36 | XMS_ITS | CCD ---
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 Role Phone Megan Blank Primary Care Provider JOHN CHRISTIE Referring Unavailable DEFRANCE, MEGAN Fournier Primary Care Unavailable LALONE, JOHN Referring Unavailable DEFRANCE, MEGAN Fournier Primary Care Unavailable LALONE, JOHN Referring Unavailable DEFRANCE, MEGAN Fournier Primary Care Unavailable LALONE, JOHN Referring Unavailable DEFRANCE, MEGAN Fournier Primary Care Unavailable LALONE, JOHN Referring Unavailable DEFRANCE, MEGAN Fournier Primary Care Unavailable LALONE, JOHN Referring Unavailable DEFRANCE, MEGAN Fournier Primary Care Unavailable LALONE, JOHN Referring Unavailable DEFRANCE, MEGAN Fournier Primary Care Unavailable LALONE, JOHN Referring Unavailable DEFRANCE, MEGAN Fournier Primary Care Unavailable LALONE, JOHN Referring Unavailable DEFRANCE, MEGAN Fournier Primary Care Unavailable LALONE, JOHN Referring Unavailable DEFRANCE, MEGAN Fournier Primary Care Unavailable LALONE, JOHN Referring Unavailable DEFRANCE, MEGAN Fournier Primary Care Unavailable LALONE, JOHN Referring Unavailable DEFRANCE, MEGAN Fournier Primary Care Unavailable Defrance Megan BOLANOS Primary Care Provider SHENDGE, VITHAL Referring Unavailable SHENDGE, VITHAL Referring Unavailable SHENDGE, VITHAL Referring Unavailable SHENDGE, VITHAL Admitting Unavailable SHENDGE, GRETEL Attending Unavailable SHENDGE, JEHAL Attending Unavailable SHENDGE, JEHAL Attending Unavailable STEPLESLEY BALL Referring Unavailable SHENDGE, JEHAL Attending Unavailable CHIRAG KWON Attending Unavailable MEGAN BLANK Referring Unavailable SILVIO, MEGAN Fournier Primary Care Unavailable Megan Blank MD Primary Care Provider Megan Blank MD Primary Care Provider Megan Blank MD Primary Care Provider [phone] Megan Blank MD Primary Care Provider Megan Blank MD Primary Care Provider Justino Gaspar MD Primary Care Provider Megan Blank MD Primary Care Provider GRETEL CHAPPELL Referring Unavailable DEFRANCE, MEGAN Fournier Primary Care Unavailable GRETEL CHAPPELL Referring Unavailable DEFRANCE, MEGAN Fournier Primary Care Unavailable DEFRANCE, MEGAN Fournier Primary Care Unavailable ALTON GRIJALVA Attending Unavailable LEATHA CORNEJO Admitting Unavailable ADRIANA, PRINCESS Attending Unavailable ADRIANA, PRINCESS Referring Unavailable DEFRANCE, MEGAN Fournier Primary Care Unavailable NANNETTE JOHNS Referring Unavailable DEFRANCE, MEGAN Fournier Primary Care Unavailable DEFRANCE, MEGAN Fournier Referring Unavailable DEFRANCE, MEGAN Fournier Primary Care Unavailable DEFRANCE, MEGAN Fournier Primary Care Unavailable ALTON GRIJALVA Attending Unavailable ADRIANA, PRINCESS Attending Unavailable ADRINAA, PRINCESS Referring Unavailable DEFRANCE, MEGAN Fournier Primary Care Unavailable DEFRANCE, MEGAN Fournier Referring Unavailable DEFRANCE, MEGAN Fournier Primary Care Unavailable JO STONE Attending Unavailable DEFRANCE, MEGAN Fournier Referring Unavailable DEFRANCE, MEGAN Fournier Primary Care Unavailable DEFRANCE, MEGAN Fournier Referring Unavailable DEFRANCE, MEGAN Fournier Primary Care Unavailable JO STONE Attending Unavailable DEFRANCE, MEGAN Fournier Referring Unavailable DEFRANCE, MEGAN Fournier Primary Care Unavailable DEFRANCE, MEGAN Fournier Primary Care Unavailable DEFRANCE, MEGAN Fournier Primary Care Unavailable BETTY ROMO Attending Unavailable LEATHA CORNEJO Admitting Unavailable DEMETRIUSBETTY ANAYA Attending Unavailable DEMETRIUS, BETTY Quintanilla Referring Unavailable DEFRANCE, MEGAN Fournier Primary Care Unavailable DEMETRIUSBETTY ANAYA Attending Unavailable DEMETRIUSBETTY ANAYA Referring Unavailable DEFRANCE, MEGAN Fournier Primary Care Unavailable GUERDA AGGARWAL Referring Unavailable JUSTINO GASPAR Primary Care Unavailable Justino Gaspar MD Primary Care Provider [phone] MEGAN BLANK Attending Unavailable DEFKARTIK, MEGAN Fournier Referring Unavailable DEFRANCE, MEGAN Fournier Primary Care Unavailable DEFRANCE, MEGAN Fournier Attending Unavailable DEFRANCE, MEGAN Fournier Referring Unavailable DEFRANCE, MEGAN Fournier Primary Care Unavailable DEFRANCE, MEGAN Fournier Attending Unavailable DEFRANCE, MEGAN Fournier Referring Unavailable DEFRANCE, MEGAN Fournier Primary Care Unavailable CESAR VALLE Attending Unavailable DEFRANCE, MEGAN Fournier Referring Unavailable DEFRANCE, MEGAN Fournier Primary Care Unavailable DEFRANCE, MEGAN Fournier Attending Unavailable DEFRANCE, MEGAN Fournier Referring Unavailable DEFRANCE, MEGAN Fournier Primary Care Unavailable SCHBO JOHNSTON Attending Unavailable DEFRANCE, MEGAN Fournier Referring Unavailable DEFRANCE, MEGAN Fournier Primary Care Unavailable SCHBO JOHNSTON Attending Unavailable DEFKARTIK, MEGAN Fournier Referring Unavailable HUBERT, JUSTINO Primary Care Unavailable GUERDA AGGARWAL Attending Unavailable HUBERT, JUSTINO Referring Unavailable HUBERT, JUSTINO Primary Care Unavailable SCHLACHTER, BO Attending Unavailable HUBERT, JUSTINO Referring Unavailable HUBERT, JUSTINO Primary Care Unavailable SCHLACHTER, BO Attending Unavailable HUBERT, JUSTINO Referring Unavailable HUBERT, JUSTINO Primary Care Unavailable HUBERT, JUSTINO Attending Unavailable HUBERT, JUSTINO Referring Unavailable HUBERT, JUSTINO Primary Care Unavailable RUSHER, JONATHON A Attending Unavailable RUSHER, JONATHON A Attending Unavailable RUSHER, JONATHON A Attending Unavailable RUSHER, JONATHON A Attending Unavailable RUSHER, JONATHON A Attending Unavailable RUSHER, JONATHON A Attending Unavailable RUSHER, JONATHON A Attending Unavailable RUSHER, JONATHON A Attending Unavailable RUSHER, JONATHON A Attending Unavailable RUSHER, JONATHON A Attending Unavailable Allergies Allergy Classification Reported Allergen(s) Allergy Type Date of Onset Reaction(s) Facility (20 sources) Cephalexin; Translations: [CEPHALEXIN] Drug Allergy 08-09-2024 Other, pain [facility] Medications Current Medications Medication Drug Class(es) Dates Sig (Normalized) Sig (Original) aspirin 81 mg delayed release oral tablet (20 sources) Platelet Aggregation Inhibitor, Nonsteroidal Anti-inflammatory Drug Start: 07-24-2022 End: 06-25-2024 take 1 tablet by mouth in the morning aspirin 81 mg Take 1 tablet (81 mg total) by mouth in the morning. 150 tablet 2 07/24/2022 Active atorvastatin 10 mg oral tablet (20 sources) HMG-CoA Reductase Inhibitor Start: 2023 End: 05-18-2025 take 1 tablet by mouth at bedtime atorvastatin (Lipitor) 10 MG tablet Take 10 mg by mouth at bedtime 2023 Active clindamycin 150 mg oral capsule (6 sources) Lincosamide Antibacterial Start: 06-25-2024 End: 06-30-2024 take 2 capsules by mouth three times daily clindamycin (CLEOCIN) 150 mg capsule Indications: Cellulitis of right lower extremity Take 2 capsules (300 mg total) by mouth 3 (three) times a day for 5 days. 30 capsule 06/25/2024 06/30/2024 Active Start: 06-10-2024 End: 06-20-2024 take 2 capsules by mouth three times daily clindamycin (CLEOCIN) 150 mg capsule Indications: Cellulitis of right lower extremity Take 2 capsules (300 mg total) by mouth 3 (three) times a day for 5 days. 30 capsule 06/15/2024 06/20/2024 Active doxycycline hyclate 100 mg oral capsule (15 sources) Tetracycline-class Drug Start: 07-25-2025 End: 08-01-2025 take 1 capsule by mouth in the morning, then take 1 capsule by mouth at bedtime doxycycline (VIBRAMYCIN) 100 mg capsule Indications: Cellulitis of right lower leg , Cellulitis of left lower leg Take 1 capsule (100 mg total) by mouth in the morning and 1 capsule (100 mg total) before bedtime. Do all this for 7 days. 14 capsule 07/25/2025 08/01/2025 Active Start: 07-11-2025 End: 07-21-2025 take 1 capsule by mouth in the morning, then take 1 capsule by mouth at bedtime doxycycline (VIBRAMYCIN) 100 mg capsule Take 1 capsule (100 mg total) by mouth in the morning and 1 capsule (100 mg total) before bedtime. Do all this for 10 days. 20 capsule 07/11/2025 07/21/2025 Active Start: 02-21-2025 End: 03-07-2025 take 1 capsule by mouth in the morning, then take 1 capsule by mouth at bedtime doxycycline (VIBRAMYCIN) 100 mg capsule Take 1 capsule (100 mg total) by mouth in the morning and 1 capsule (100 mg total) before bedtime. Do all this for 7 days. 14 capsule 02/28/2025 03/07/2025 Active Start: 09-28-2024 End: 10-18-2024 take 1 capsule by mouth in the morning, then take 1 capsule by mouth at bedtime doxycycline (VIBRAMYCIN) 100 mg capsule Take 1 capsule (100 mg total) by mouth in the morning and 1 capsule (100 mg total) before bedtime. Do all this for 10 days. 20 capsule 10/08/2024 10/18/2024 Active Start: 08-09-2024 End: 08-24-2024 take 1 capsule by mouth in the morning, then take 1 capsule by mouth at bedtime doxycycline (VIBRAMYCIN) 100 mg capsule Take 1 capsule (100 mg total) by mouth in the morning and 1 capsule (100 mg total) before bedtime. Do all this for 15 days. 30 capsule 08/09/2024 08/24/2024 Active Start: 07-27-2024 End: 08-03-2024 take 1 capsule by mouth in the morning, then take 1 capsule by mouth at bedtime doxycycline (VIBRAMYCIN) 100 mg capsule Take 1 capsule (100 mg total) by mouth in the morning and 1 capsule (100 mg total) before bedtime. Do all this for 7 days. 14 capsule 07/27/2024 08/03/2024 Active Start: 05-18-2024 End: 06-01-2024 take 1 capsule by mouth in the morning, then take 1 capsule by mouth at bedtime doxycycline (VIBRAMYCIN) 100 mg capsule Take 1 capsule (100 mg total) by mouth in the morning and 1 capsule (100 mg total) before bedtime. Do all this for 5 days. 10 capsule 05/27/2024 06/01/2024 Active ferrous sulfate 325 mg oral tablet (20 sources) Start: 01-01-2023 End: 04-28-2025 take 1 tablet by mouth at bedtime ferrous sulfate 325 (65 Fe) MG tablet Take 325 mg by mouth at bedtime 01/01/2023 Active furosemide 40 mg oral tablet (20 sources) Loop Diuretic Start: 12-23-2022 End: 07-25-2025 take 1 tablet by mouth once daily furosemide (Lasix) 40 MG tablet Take 40 mg by mouth Daily 12/23/2022 Active Start: 12-23-2022 End: 09-28-2024 take 1 tablet by mouth twice daily before mealtime furosemide (LASIX) 40 mg tablet Indications: Lymphedema of both lower extremities Take 1 tablet (40 mg total) by mouth 2 (two) times a day before meals. 90 tablet 1 06/15/2024 09/28/2024 Discontinued mupirocin 0.02 mg/mg topical ointment (16 sources) RNA Synthetase Inhibitor Antibacterial Start: 04-07-2025 mupirocin (BACTROBAN) 2 % ointment Apply 1 Application topically 3 (three) times a day. 22 g 02/21/2025 Active nortriptyline 75 mg oral capsule (20 sources) Tricyclic Antidepressant take 1 capsule by mouth once daily nortriptyline (Pamelor) 75 MG capsule Take 75 mg by mouth 1 (one) time each day at the same time Active omeprazole 20 mg delayed release oral capsule (20 sources) Proton Pump Inhibitor Start: 2023 End: 07-25-2025 take 1 capsule by mouth at bedtime omeprazole (PriLOSEC) [address] capsule Take 20 mg by mouth at bedtime 2023 Active potassium chloride 20 meq extended release oral tablet (1 source) Start: 05-27-2024 End: 06-03-2024 potassium chloride (K-TAB,KLOR-CON) 20 mEq CR tablet Take 1 tablet (20 mEq total) by mouth in the morning for 7 days. 7 tablet 05/27/2024 06/03/2024 Active pramipexole dihydrochloride 1.5 mg oral tablet (20 sources) Nonergot Dopamine Agonist Start: 04-07-2023 End: 05-18-2025 take 1 tablet by mouth in the morning, then take 1 tablet by mouth in the evening, then take 1 tablet by mouth at bedtime pramipexole (Mirapex) 1.5 MG tablet Take 1.5 mg by mouth in the morning and 1.5 mg in the evening and 1.5 mg before bedtime. 04/07/2023 Active silver sulfADIAZINE 10 mg/ml topical cream (10 sources) Sulfonamide Antibacterial Start: 06-15-2024 End: 06-25-2024 silver sulfADIAZINE (SILVADENE, SSD) 1 % cream Apply 1 Application topically in the morning. 400 g 1 06/25/2024 Active sulfamethoxazole 800 mg / trimethoprim 160 mg oral tablet (10 sources) Dihydrofolate Reductase Inhibitor Antibacterial, Sulfonamide Antimicrobial Start: 02-21-2025 End: 03-07-2025 take 1 tablet by mouth once in the morning sulfamethoxazole-t rimethoprim (BACTRIM DS) 800-160 mg per tablet Take 1 tablet by mouth in the morning and 1 tablet before bedtime. Do all this for 7 days. 14 tablet 02/28/2025 03/07/2025 Active Start: 12-27-2024 End: 01-06-2025 take 1 tablet by mouth once in the morning sulfamethoxazole-trimethoprim (BACTRIM D S) 800-160 mg per tablet Take 1 tablet by mouth in the morning and 1 tablet before bedtime. Do all this for 10 days. 20 tablet 12/27/2024 01/06/2025 Active Start: 11-11-2024 End: 11-21-2024 take 1 tablet by mouth once in the morning sulfamethoxazole-trimethoprim (BACTRIM D S) 800-160 mg per tablet Take 1 tablet by mouth in the morning and 1 tablet before bedtime. Do all this for 10 days. 20 tablet 11/11/2024 11/21/2024 Active Start: 08-02-2024 End: 08-09-2024 take 1 tablet by mouth once in the morning sulfamethoxazole-trimethoprim (BACTRIM D S) 800-160 mg per tablet Take 1 tablet by mouth in the morning and 1 tablet before bedtime. Do all this for 7 days. 14 tablet 08/02/2024 08/09/2024 Active traZODone hydrochloride 150 mg oral tablet (1 source) Serotonin Reuptake Inhibitor Start: 08-03-2025 take 1 tablet by mouth once daily traZODone (DESYREL) 150 mg tablet Indications: Insomnia due to medical condition Take 1 tablet (150 mg total) by mouth nightly. 30 tablet 3 08/03/2025 Active Start: 08-03-2025 take 1 tablet by skyla th once daily traZODone (DESYREL) 150 mg tablet Indications: Insomnia due to medical condition Take 1 tablet (150 mg total) by mouth nightly. 30 tablet 3 08/03/2025 Active Completed/Discontinued Medications Medication Drug Class(es) Dates Sig (Normalized) Sig (Original) cephalexin 500 mg oral capsule (3 sources) Cephalosporin Antibacterial Start: 08-02-2024 End: 08-09-2024 CEPHalexin (KEFLEX) 500 mg capsule Take 1 capsule (500 mg total) by mouth in the morning and 1 capsule (500 mg total) at noon and 1 capsule (500 mg total) in the evening and 1 capsule (500 mg total) before bedtime. Do all this for 7 days. 28 capsule 08/02/2024 08/09/2024 Discontinued (Alternate therapy) Start: 05-27-2024 End: 06-01-2024 take 1 capsule by mouth in the morning, then take 1 capsule by mouth at bedtime CEPHalexin (KEFLEX) 500 mg capsule Take 1 capsule (500 mg total) by mouth in the morning and 1 capsule (500 mg total) before bedtime. Do all this for 5 days. 10 capsule 05/27/2024 06/01/2024 Active diphenhydrAMINE hydrochloride 25 mg oral capsule (8 sources) Histamine-1 Receptor Antagonist End: 10-21-2024 take 2 capsules by mouth once daily as needed for sleep diphenhydrAMINE (BENADRYL) 25 mg capsule Take 2 capsules (50 mg total) by mouth nightly as needed for sleep. 10/21/2024 Discontinued (Alternate therapy) Lactobac comb [id number] (PROBIOTIC & ACIDOPHILUS) 300-250 million cell-mg capsule (7 sources) Start: 07-27-2024 End: 10-21-2024 take 1 capsule by mouth in the morning Lactobac comb [id number] (PROBIOTIC & ACIDOPHILUS) 300-250 million cell-mg capsule Take 1 capsule by mouth in the morning and 1 capsule in the evening. Take with meals. 60 capsule 07/27/2024 10/21/2024 Discontinued (Alternate therapy) Start: 07-27-2024 take 1 capsule by mo uth in the morning Lactobac comb [id number] (PROBIOTIC & ACIDOPHILUS) 300-250 million cell-mg capsule Take 1 capsule by mouth in the morning and 1 capsule in the evening. Take with meals. 60 capsule 07/27/2024 Active Problems Active Problems Problem Classification Problem Date Documented Date Episodic/Chronic Chronic obstructive pulmonary disease and bronchiectasis (20 sources) Chronic obstructive lung disease; Translations: [Chronic obstructive pulmonary disease, unspecified] Onset: 05-17-2024 06-25-2024 Chronic Coagulation and hemorrhagic disorders (1 source) Coagulation defect, unspecified; Translations: [Coagulation defect, unspecified] Onset: 05-04-2024 Chronic Disorders of lipid metabolism (20 sources) Pure hypercholesterolemia; Translations: [Pure hypercholesterolemia, unspecified] Onset: 11-25-2016 11-08-2024 Chronic Esophageal disorders (20 sources) Gastroesophageal reflux disease without esophagitis; Translations: [Gastro-esophageal reflux disease without esophagitis] Onset: 11-25-2016 07-31-2024 Chronic Essential hypertension (20 sources) Essential hypertension; Translations: [Essential (primary) hypertension] Onset: 11-25-2016 11-08-2024 Chronic Heart valve disorders (20 sources) Nonrheumatic aortic (valve) stenosis; Translations: [Aortic valve disorders] Onset: 05-25-2024 07-31-2024 Chronic Miscellaneous mental health disorders (20 sources) Psychophysiologic insomnia; Translations: [Psychophysiologic insomnia] Onset: 04-19-2021 01-02-2022 Chronic Mycoses (4 sources) Onychomycosis; Translations: [Tinea unguium] 08-12-2024 Episodic Osteoarthritis (20 sources) Osteoarthritis of right knee joint; Translations: [Unilateral primary osteoarthritis, right knee] Onset: 07-14-2019 07-14-2019 Chronic Other connective tissue disease (2 sources) Presence of artificial knee joint, bilateral; Translations: [Presence of artificial knee joint, bilateral] Onset: 05-24-2024 Chronic Other connective tissue disease (3 sources) Presence of right artificial knee joint; Translations: [Presence of right artificial knee joint] Onset: 05-12-2024 Chronic Other connective tissue disease (20 sources) Artificial knee joint present; Translations: [Presence of right artificial knee joint] Onset: 05-12-2024 05-25-2024 Chronic Other connective tissue disease (20 sources) History of total knee arthroplasty; Translations: [Presence of right artificial knee joint] Onset: 05-12-2024 07-31-2024 Chronic Other connective tissue disease (8 sources) Pain in toe; Translations: [Pain in right toe(s)] 08-12-2024 Episodic Other connective tissue disease (10 sources) Pain in left foot; Translations: [Pain in left foot] 12-13-2024 Episodic Other connective tissue disease (2 sources) Bursitis of left foot; Translations: [Other enthesopathy of left foot and ankle] 04-06-2025 Episodic Other diseases of veins and lymphatics (4 sources) Lymphedema, not elsewhere classified; Translations: [Lymphedema, not elsewhere classified] Onset: 12-28-2019 Chronic Other diseases of veins and lymphatics (20 sources) Lymphedema of bilateral lower limbs; Translations: [Lymphedema, not elsewhere classified] Onset: 12-28-2019 07-31-2024 Chronic Other diseases of veins and lymphatics (20 sources) Lymphangitis; Translations: [Lymphangitis] Onset: 06-24-2024 06-24-2024 Chronic Other hereditary and degenerative nervous system conditions (20 sources) Restless legs; Translations: [Restless legs syndrome] Onset: 04-19-2021 07-31-2024 Chronic Other nervous system disorders (10 sources) Difficulty walking; Translations: [Difficulty in walking, not elsewhere classified] 12-13-2024 Chronic Other non-traumatic joint disorders (3 sources) Pain in right knee; Translations: [Pain in joint, lower leg] Onset: 04-19-2024 Episodic Other nutritional; endocrine; and metabolic disorders (2 sources) Morbid (severe) obesity due to excess calories; Translations: [Morbid (severe) obesity due to excess calories] Onset: 04-19-2024 Chronic Other nutritional; endocrine; and metabolic disorders (20 sources) Obesity; Translations: [Obesity, unspecified] Onset: 11-25-2016 11-25-2016 Chronic Other nutritional; endocrine; and metabolic disorders (1 source) Body mass index (BMI) 45.0-49.9, adult; Translations: [Body mass index (BMI) 45.0-49.9, adult] Onset: 10-21-2024 Chronic Other skin disorders (4 sources) Dystrophia unguium; Translations: [Nail dystrophy] 08-12-2024 Episodic Other skin disorders (10 sources) Acquired keratoderma; Translations: [Acquired keratosis [keratoderma] palmaris et plantaris] 12-13-2024 Episodic Residual codes; unclassified (20 sources) Obstructive sleep apnea syndrome; Translations: [Obstructive sleep apnea (adult) (pediatric)] Onset: 11-25-2016 07-31-2024 Chronic Residual codes; unclassified (20 sources) Daytime somnolence; Translations: [Other hypersomnia] Onset: 08-13-2022 05-25-2024 Chronic Residual codes; unclassified (1 source) Obstructive sleep apnea (adult) (pediatric); Translations: [Obstructive sleep apnea (adult) (pediatric)] Onset: 07-31-2024 Chronic Residual codes; unclassified (1 source) Sleep apnea Onset: 03-08-2025 Chronic Residual codes; unclassified (1 source) Insomnia co-occurrent and due to medical condition; Translations: [Insomnia due to medical condition] 08-03-2025 Chronic Residual codes; unclassified (1 source) Insomnia Onset: 07-25-2025 Episodic Spondylosis; intervertebral disc disorders; other back problems (19 sources) Arthritis of left sacroiliac joint; Translations: [Spondylosis without myelopathy or radiculopathy, sacral and sacrococcygeal region] Onset: 02-21-2025 03-11-2024 Chronic Unclassified (1 source) Dressing Change Onset: 07-02-2024 Unclassified (1 source) Wound Check Onset: 06-25-2024 Unclassified (1 source) Restless Leg Onset: 03-08-2025 Unclassified (1 source) Annual Exam Onset: 10-21-2024 Unclassified (1 source) Neck Stiffness Onset: 08-09-2024 Viral infection (8 sources) Plantar wart of left foot; Translations: [Plantar wart] 12-13-2024 Episodic Past or Other Problems Problem Classification Problem Date Documented Date Episodic/Chronic Complication of device; implant or graft (20 sources) Mechanical loosening of internal right knee prosthetic joint, initial encounter; Translations: [Mechanical loosening of prosthetic joint] Onset: 05-04-2024 Episodic Deficiency and other anemia (20 sources) Iron deficiency anemia; Translations: [Iron deficiency anemia, unspecified] Onset: 05-17-2024 07-31-2024 Episodic Deficiency and other anemia (2 sources) Iron deficiency anemia, unspecified; Translations: [Iron deficiency anemia, unspecified] Onset: 07-31-2024 Episodic Malaise and fatigue (2 sources) Asthenia; Translations: [Weakness] Onset: 08-09-2024 08-09-2024 Episodic Mood disorders (20 sources) Mood disorders Onset: 10-21-2024 Resolved: 07-25-2025 10-21-2024 Other and unspecified benign neoplasm (20 sources) Adenomatous polyp of colon ; Translations: [Benign neoplasm of transverse colon] Onset: 10-19-2018 10-19-2018 Episodic Other connective tissue disease (20 sources) Other symptoms and signs involving the musculoskeletal system; Translations: [Other musculoskeletal symptoms referable to limbs] Onset: 08-27-2021 05-25-2024 Episodic Other connective tissue disease (20 sources) Muscle weakness; Translations: [Muscle weakness (generalized)] Onset: 01-23-2022 01-23-2022 Episodic Other connective tissue disease (20 sources) Neuralgia; Translations: [Neuralgia and neuritis, unspecified] Onset: 06-11-2023 06-11-2023 Episodic Other connective tissue disease (1 source) Pain in right lower limb; Translations: [Pain in right leg] 03-11-2024 Episodic Other connective tissue disease (2 sources) Paraparesis; Translations: [Other symptoms and signs involving the musculoskeletal system] Onset: 08-27-2021 08-27-2021 Episodic Other connective tissue disease (1 source) Pain in lower limb Onset: 07-30-2024 Episodic Other connective tissue disease (1 source) Leg swelling symptom Onset: 05-25-2024 Episodic Other fractures (20 sources) Closed fracture of one rib; Translations: [Fracture of one rib, right side, subsequent encounter for fracture with nonunion] Onset: 12-17-2018 12-17-2018 Episodic Other fractures (20 sources) Delayed union of fracture ; Translations: [Fracture of one rib, right side, subsequent encounter for fracture with delayed healing] Onset: 04-13-2020 07-31-2020 Episodic Other lower respiratory disease (20 sources) Dyspnea; Translations: [Dyspnea, unspecified] Onset: 11-25-2016 11-25-2016 Episodic Other lower respiratory disease (20 sources) Disorder of lung; Translations: [Other disorders of lung] Onset: 04-13-2020 07-31-2020 Episodic Other lower respiratory disease (1 source) Dyspnea on exertion; Translations: [Other forms of dyspnea] 01-26-2024 Episodic Other nervous system disorders (20 sources) Spinal cord disease; Translations: [Disease of spinal cord, unspecified] Onset: 01-02-2022 Resolved: 01-23-2022 01-23-2022 Chronic Other nervous system disorders (20 sources) Impairment of balance; Translations: [Other abnormalities of gait and mobility] Onset: 08-13-2022 05-25-2024 Episodic Other non-traumatic joint disorders (1 source) Knee pain Onset: 05-25-2024 Episodic Other nutritional; endocrine; and metabolic disorders (20 sources) Body mass index 40+ - severely obese; Translations: [Morbid (severe) obesity due to excess calories] Onset: 01-19-2018 Resolved: 02-21-2025 05-25-2024 Chronic Other nutritional; endocrine; and metabolic disorders (20 sources) Severe obesity; Translations: [Class 3 severe obesity with body mass index (BMI) of 45.0 to 49.9 in adult] Onset: 04-13-2020 Resolved: 02-21-2025 07-31-2024 Chronic Other screening for suspected conditions (not mental disorders or infectious disease) (20 sources) History of polyp of colon; Translations: [Encounter for screening for malignant neoplasm of colon] Onset: 09-08-2018 09-08-2018 Episodic Other skin disorders (20 sources) Mass of knee; Translations: [Localized swelling, mass and lump, right lower limb] Onset: 10-01-2019 10-01-2019 Episodic Residual codes; unclassified (20 sources) Other specified health status; Translations: [Other specified conditions influencing health status] Onset: 05-25-2024 07-31-2024 Episodic Residual codes; unclassified (20 sources) Bilateral lower limb edema; Translations: [Localized edema] Onset: 05-25-2024 05-25-2024 Episodic Residual codes; unclassified (1 source) Localized edema; Translations: [Localized edema] 01-26-2024 Episodic Residual codes; unclassified (1 source) Localized edema; Translations: [Localized edema] Onset: 07-30-2024 Episodic Residual codes; unclassified (1 source) Edema Onset: 10-07-2024 Episodic Skin and subcutaneous tissue infections (20 sources) Cellulitis of right lower limb; Translations: [Cellulitis of right lower limb] Onset: 05-25-2024 05-25-2024 Episodic Spondylosis; intervertebral disc disorders; other back problems (20 sources) Chronic low back pain; Translations: [Chronic midline low back pain without sciatica] Onset: 04-19-2021 04-19-2021 Episodic Superficial injury; contusion (1 source) Blister of lower leg without infection; Translations: [Blister (nonthermal), right lower leg, initial encounter] 06-25-2024 Episodic Unclassified (20 sources) Onset: 01-29-2022 Resolved: 07-25-2025 2 Results Test Name Value Interpretation Reference Range Facility CBC WITH AUTO DIFFERENTIALon 04-27-2025 BASOPHILS ABSOLUTE COUNT (10*3/UL) BY AUTOMATED COUNT 0.0 10*3/uL Normal 0.0-0.2 [facility] Comment on above: Performed By: #### C BCA, 16036-9, CMP, 21574-3, 1988-03, 71234- 0 #### [facility] ([id number]) [address] [place] [address] 03719 #### FEPR #### [facility] ([id number]) [address] [place] [address], [address] [place] [address] BASOPHILS RELATIVE PERCENT BY AUTOMATED COUNT 0.6 % Normal [facility] Comment on above: Performed By: #### C BCA, 28682-1, CMP, 13477-0, 1988-03, 69528- 0 #### [facility] ([id number]) [address] [place] [address] 32920 #### FEPR #### [facility] ([id number]) [address] [place] [address], [address] [place] [address] CELLAVISION DIFFERENTIAL TYPE AUTOMATED DIFFERENTIAL Normal [facility] Comment on above: Performed By: #### C BCA, 98124-2, CMP, 58370-4, 1988-03, 04010- 0 #### [facility] ([id number]) [address] [place] [address] 59381 #### FEPR #### [facility] ([id number]) [address] [place] [address], [address] [place] [address] Eosinophils (Bld) [#/Vol] 0.2 10*3/uL Normal 0.0-0.4 [facility] Comment on above: Performed By: #### C BCA, 09299-7, CMP, 22292-4, 1988-03, 39819- 0 #### [facility] ([id number]) [address] [place] [address] 00830 #### FEPR #### [facility] ([id number]) [address], [address] [place] [address] EOSINOPHILS RELATIVE PERCENT BY AUTOMATED COUNT 3.4 % Normal [facility] Comment on above: Performed By: #### C AMARILYS, 24581-3, CMP, 84095-3, 1988-03, 60452- 0 #### [facility] ([id number]) [address] [place] [address] 83408 #### FEPR #### [facility] ([id number]) [address], [address] [place] [address] Erythrocyte distribution width (RBC) [Ratio] 17.1 % High 11.5-15 [facility] Comment on above: Performed By: #### C AMARILYS, 64733-8, CMP, 07460-1, 1988-03, 37735- 0 #### [facility] ([id number]) [address] [place] [address] 44327 #### FEPR #### [facility] ([id number]) [address], [address] [place] [address] Hematocrit (Bld) [Volume fraction] 38.0 % Low 39-50 [facility] Comment on above: Performed By: #### C BCA, 26348-2, CMP, 67463-9, 1988-03, 42450- 0 #### [facility] ([id number]) [address] [place] [address] 30093 #### FEPR #### [facility] ([id number]) [address], [address] [place] [address] Hemoglobin (Bld) [Mass/Vol] 12.5 g/dL Low 13-17 [facility] Comment on above: Performed By: #### C BCA, 73266-7, CMP, 49701-4, 1988-03, 60930- 0 #### [facility] ([id number]) [address] [place] [address] 52990 #### FEPR #### [facility] ([id number]) [address], [address] [place] [address] LYMPHOCYTES ABSOLUTE COUNT (10*3/UL) BY AUTOMATED COUNT 1.3 10*3/uL Normal 1.0-3.5 [facility] Comment on above: Performed By: #### C BCA, 78367-9, CMP, 53066-1, 1988-03, 53265- 0 #### [facility] ([id number]) [address] [place] [address] 16912 #### FEPR #### [facility] ([id number]) [address], [address] [place] [address] LYMPHOCYTES RELATIVE PERCENT BY AUTOMATED COUNT 19.1 % Normal [facility] Comment on above: Performed By: #### C BCA, 66013-9, CMP, 37970-2, 1988-03, 32343- 0 #### [facility] ([id number]) [address] [place] [address] 49455 #### FEPR #### [facility] ([id number]) [address], [address] [place] [address] MCH (RBC) [Entitic mass] 27.0 pg Normal 27-34 [facility] Comment on above: Performed By: #### C BCA, 69535-0, CMP, 68093-1, 1988-03, 06465- 0 #### [facility] ([id number]) [address] [place] [address] 80621 #### FEPR #### [facility] ([id number]) [address], [address] [place] [address] MCHC (RBC) [Mass/Vol] 32.8 g/dL Normal 32-36 [facility] Comment on above: Performed By: #### C BCA, 61845-1, CMP, 32348-7, 1988-03, 40080- 0 #### [facility] ([id number]) [address] [place] [address] 92976 #### FEPR #### [facility] ([id number]) [address], [address] [place] [address] MCV (RBC) [Entitic vol] 82 fL Normal 80-100 [facility] Comment on above: Performed By: #### C BCA, 87215-9, CMP, 11421-0, 1988-03, 33822- 0 #### [facility] ([id number]) [address] [place] [address] 37253 #### FEPR #### [facility] ([id number]) [address] [facility], [address] [place] [address] MONOCYTES ABSOLUTE COUNT (10*3/UL) BY AUTOMATED COUNT 0.5 10*3/uL Normal 0.0-0.9 [facility] Comment on above: Performed By: #### C BCA, 74734-8, CMP, , 1988-03, 29774- 0 #### [facility] ([id number]) [address] [place] [address] 90872 #### FEPR #### [facility] ([id number]) [address] [facility], [address] [place] [address] MONOCYTES RELATIVE PERCENT BY AUTOMATED COUNT 7.0 % Normal [facility] Comment on above: Performed By: #### C BCA, 48747-9, CMP, , 1988-03, 13047- 0 #### [facility] ([id number]) [address] [place] [address] 48495 #### FEPR #### [facility] ([id number]) [address], [address] [place] [address] NEUTROPHILS ABSOLUTE COUNT BY AUTOMATED COUNT 4.9 10*3/uL Normal 1.5-6.6 [facility] Comment on above: Performed By: #### C BCA, 43220-5, CMP, 31202-5, 1987-5, 46378- 0 #### [facility] ([id number]) [address] [place] [address] 95107 #### FEPR #### [facility] ([id number]) [address] [facility], [address] [place] [address] NEUTROPHILS RELATIVE PERCENT BY AUTOMATED COUNT 69.9 % Normal [facility] Comment on above: Performed By: #### C BCA, 19440-9, CMP, 54899-8, 1988-03, 85694- 0 #### [facility] ([id number]) [address] [place] [address] 01682 #### FEPR #### [facility] ([id number]) [address], [address] [place] [address] Platelet mean volume (Bld) [Entitic vol] 6.6 fL Low 7-12 [facility] Comment on above: Performed By: #### C AMARILYS, 81135-5, CMP, 59863-2, 1988-03, 06889- 0 #### [facility] ([id number]) [address] [place] [address] 12060 #### FEPR #### [facility] ([id number]) [address], [address] [place] [address] Platelets (Bld) [#/Vol] 271 10*3/uL Normal 150-450 [facility] Comment on above: Performed By: #### C BCA, 32707-8, CMP, 38080-4, 1988-03, 03563- 0 #### [facility] ([id number]) [address] [place] [address] 66436 #### FEPR #### [facility] ([id number]) [address], [address] [place] [address] RBC COUNT 4.62 X10E12/L Normal 4.1-5.7 [facility] Comment on above: Performed By: #### C BCA, 25124-7, CMP, 00116-0, 1988-03, 26627- 0 #### [facility] ([id number]) [address] [place] [address] 60877 #### FEPR #### [facility] ([id number]) [address], [address] [place] [address] WBC (Bld) [#/Vol] 6.9 10*3/uL Normal 4-11 [facility] Comment on above: Performed By: #### C BCA, 12075-3, CMP, 03409-6, 1988-03, 90663- 0 #### [facility] ([id number]) [address] [place] [address] 89721 #### FEPR #### [facility] ([id number]) [address], [address] [place] [address] FERRITINon 04-27-2025 Ferritin [Mass/Vol] 84 ng/mL Normal 24-336 [facility] Comment on above: Performed By: #### C BCA, 12588-5, CMP, 72559-5, 1988-03, 11472- 0 #### [facility] ([id number]) [address] [place] [address] 60875 #### FEPR #### [facility] ([id number]) [address], [address] [place] [address] IRON AND TIBCon 04-27-2025 Iron [Mass/Vol] 40 ug/dL Low 50-212 [facility] Comment on above: Performed By: #### C BCA, 15077-5, CMP, 37250-8, 1988-03, 68297- 0 #### [facility] ([id number]) [address] [place] [address] 22623 #### FEPR #### [facility] ([id number]) [address], [address] [place] [address] IRON BINDING 308 ug/dL Normal 250-425 [facility] Comment on above: Performed By: #### C BCA, 45231-0, CMP, 74384-2, 1988-03, 79036- 0 #### [facility] ([id number]) [address] [place] [address] 47247 #### FEPR #### [facility] ([id number]) [address] [facility], [address] [place] [address] IRON SATURATION 13 % SATURATION Low 20-50 [facility] Comment on above: Performed By: #### C BCA, 65873-7, CMP, 00224-1, 1988-03, 85056- 0 #### [facility] ([id number]) [address] [place] [address] 02708 #### FEPR #### [facility] ([id number]) [address] [facility], [address] [place] [address] Transferrin [Mass/Vol] 220 mg/dL Normal 168-336 [facility] Comment on above: Performed By: #### C BCA, 97337-7, CMP, 88734-4, 1988-03, 85003- 0 #### [facility] ([id number]) [address] [place] [address] 40704 #### FEPR #### [facility] ([id number]) [address] [facility], [address] [place] [address] CBC AND AUTO DIFFon 08-02-20 24 ABSOLUTE BASOPHIL 0.0 X10E9/L Normal 0.0-0.2 [facility] Comment on above: Performed By: #### C AMARILYS, 31515-4, CMP, 76199-2, 1988-03, 12923 0 #### [facility] ([id number]) [address] [place] [address] 62017 #### FEPR #### [facility] ([id number]) [address] [facility], [address] [place] [address] ABSOLUTE NEUTROPHIL 4.4 X10E9/L Normal 1.5-6.6 [facility] Comment on above: Performed By: #### C AMARILYS, 37195-7, CMP, 15963-8, 1988-03, 73805- 0 #### [facility] ([id number]) [address] [place] [address] 41617 #### FEPR #### [facility] ([id number]) [address] [facility], [address] [place] [address] Basophils/100 WBC (Bld) 0.5 % Normal [facility] Comment on above: Performed By: #### C AMARILYS, 94052-2, CMP, 37149-0, 1988-03, 48759- 0 #### [facility] ([id number]) [address] [place] [address] 98689 #### FEPR #### [facility] ([id number]) [address] [facility], [address] [place] [address] Eosinophils (Bld) [#/Vol] 0.3 10*3/uL Normal 0.0-0.4 [facility] Comment on above: Performed By: #### C BCA, 46564-7, CMP, , 1988-03, 73641- 0 #### [facility] ([id number]) [address] [place] [address] 60406 #### FEPR #### [facility] ([id number]) [address], [address] [place] [address] Eosinophils/100 WBC (Bld) 4.2 % Normal [facility] Comment on above: Performed By: #### C BCA, 16719-3, CMP, 40716-9, 1988-03, 85839- 0 #### [facility] ([id number]) [address] [place] [address] 85077 #### FEPR #### [facility] ([id number]) [address] [facility], [address] [place] [address] Erythrocyte distribution width (RBC) [Ratio] 16.9 % High 11.5-15.0 [facility] Comment on above: Performed By: #### C AMARILYS, 37604-4, CMP, 20751-7, 1988-03, 93268- 0 #### [facility] ([id number]) [address] [place] [address] 81190 #### FEPR #### [facility] ([id number]) [address], [address] [place] [address] Hematocrit (Bld) [Volume fraction] 35.3 % Low 39-49 [facility] Comment on above: Performed By: #### C BCA, 23760-0, CMP, 50294-6, 1988-03, 43780 0 #### [facility] ([id number]) [address] [place] [address] 75650 #### FEPR #### [facility] ([id number]) [address], [address] [place] [address] Hemoglobin (Bld) [Mass/Vol] 11.4 g/dL Low 13.0-17.0 [facility] Comment on above: Performed By: #### C BCA, 87462-7, CMP, 49944-1, 1988-03, 60245- 0 #### [facility] ([id number]) [address] [place] [address] 58090 #### FEPR #### [facility] ([id number]) [address], [address] [place] [address] Lymphocytes (Bld) [#/Vol] 1.1 10*3/uL Normal 1.0-3.5 [facility] Comment on above: Performed By: #### C BCA, 75206-6, CMP, 26319-0, 1988-03, 33985- 0 #### [facility] ([id number]) [address] [place] [address] 78252 #### FEPR #### [facility] ([id number]) [address], [address] [place] [address] Lymphocytes/100 WBC (Bld) 17.8 % Normal [facility] Comment on above: Performed By: #### C BCA, 91870-3, CMP, 38349-7, 1988-03, 26729- 0 #### [facility] ([id number]) [address] [place] [address] 20202 #### FEPR #### [facility] ([id number]) [address], [address] [place] [address] MCH (RBC) [Entitic mass] 26.4 pg Low 27-34 [facility] Comment on above: Performed By: #### C BCA, 09099-5, CMP, 22865-7, 1988-03, 77778- 0 #### [facility] ([id number]) [address] [place] [address] 23821 #### FEPR #### [facility] ([id number]) [address], [address] [place] [address] MCHC (RBC) [Mass/Vol] 32.3 g/dL Normal 32-36 [facility] Comment on above: Performed By: #### C BCA, 08267-0, CMP, 60148-0, 1988-03, 54550- 0 #### [facility] ([id number]) [address] [place] [address] 23860 #### FEPR #### [facility] ([id number]) [address], [address] [place] [address] MCV (RBC) [Entitic vol] 82 fL Normal 80-100 [facility] Comment on above: Performed By: #### C BCA, 65732-5, CMP, 55019-7, 1988-03, 55766- 0 #### [facility] ([id number]) [address] [place] [address] 02915 #### FEPR #### [facility] ([id number]) [address], [address] [place] [address] Monocytes (Bld) [#/Vol] 0.4 10*3/uL Normal 0-0.9 [facility] Comment on above: Performed By: #### C BCA, 00723-1, CMP, 43860-4, 1988-03, 05198 0 #### [facility] ([id number]) [address] [place] [address] 19955 #### FEPR #### [facility] ([id number]) [address], [address] [place] [address] Monocytes/100 WBC (Bld) 7.1 % Normal [facility] Comment on above: Performed By: #### C BCA, 73975-1, CMP, 83507-0, 1988-03, 12951 0 #### [facility] ([id number]) [address] [place] [address] 86336 #### FEPR #### [facility] ([id number]) [address], [address] [place] [address] Neutrophils/100 WBC (Bld) 70.4 % Normal [facility] Comment on above: Performed By: #### C AMARILYS, 32204-7, CMP, 86079-3, 1988-03, 01290 0 #### [facility] ([id number]) [address] [place] [address] 20861 #### FEPR #### [facility] ([id number]) [address], [address] [place] [address] Platelet mean volume (Bld) [Entitic vol] 6.4 fL Low 7-12 [facility] Comment on above: Performed By: #### C AMARILYS, 42191-8, CMP, 53879-1, 1988-03, 93378 0 #### [facility] ([id number]) [address] [place] [address] 85167 #### FEPR #### [facility] ([id number]) [address], [address] [place] [address] Platelets (Bld) [#/Vol] 278 10*3/uL Normal 150-450 [facility] Comment on above: Performed By: #### C AMARILYS, 30098-0, CMP, , 1988-03, 49662 0 #### [facility] ([id number]) [address] [place] [address] 46318 #### FEPR #### [facility] ([id number]) [address], [address] [place] [address] RBC COUNT 4.30 X10E12/L Normal 4.10-5.70 [facility] Comment on above: Performed By: #### C AMARILYS, 68932-3, CMP, 26921-3, 1988-03, 18937- 0 #### [facility] ([id number]) [address] [place] [address] 93042 #### FEPR #### [facility] ([id number]) [address] [facility], [address] [place] [address] WBC (Bld) [#/Vol] 6.2 10*3/uL Normal 4.0-11.0 [facility] Comment on above: Performed By: #### C BCA, 88882-4, CMP, 64015-8, 1988-03, 14667- 0 #### [facility] ([id number]) [address] [place] [address] 04359 #### FEPR #### [facility] ([id number]) [address] [place] [address], [address] [place] [address] COMPREHENSIVE METABOLIC PANE John 08-02-2024 Albumin [Mass/Vol] 3.1 g/dL Low 3.2-5.3 [facility] Comment on above: Performed By: #### C BCA, 12773-8, CMP, 32610-5, 1988-03, 33197- 0 #### [facility] ([id number]) [address] [place] [address] 26713 #### FEPR #### [facility] ([id number]) [address] [place] [address], [address] [place] [address] ALP [Catalytic activity/Vol] 121 U/L Normal 39-130 [facility] Comment on above: Performed By: #### C BCA, 78824-1, CMP, 00503-9, 1988-03, 72091- 0 #### [facility] ([id number]) [address] [place] [address] 44635 #### FEPR #### [facility] ([id number]) [address] [place] [address], [address] [place] [address] ALT [Catalytic activity/Vol] 42 U/L High 0-40 [facility] Comment on above: Performed By: #### C BCA, 53322-6, CMP, 91725-2, 1988-03, 63898- 0 #### [facility] ([id number]) [address] [place] [address] 69869 #### FEPR #### [facility] ([id number]) [address], [address] [place] [address] Anion gap [Moles/Vol] 9 mmol/L Normal 5-15 [facility] Comment on above: Performed By: #### C BCA, 35496-1, CMP, 19043-6, 1988-03, 43189- 0 #### [facility] ([id number]) [address] [place] [address] 37226 #### FEPR #### [facility] ([id number]) [address] [facility], [address] [place] [address] AST [Catalytic activity/Vol] 24 U/L Normal 0-41 [facility] Comment on above: Performed By: #### C BCA, 71456-9, CMP, 21993-4, 1988-03, 36381- 0 #### [facility] ([id number]) [address] [place] [address] 91621 #### FEPR #### [facility] ([id number]) [address], [address] [place] [address] Bilirubin [Mass/Vol] 0.5 mg/dL Normal 0.3-1.2 [facility] Comment on above: Performed By: #### C BCA, 04027-4, CMP, 80436-4, 1988-03, 00816- 0 #### [facility] ([id number]) [address] [place] [address] #### FEPR #### [facility] ([id number]) [address], [address] [place] [address] Calcium [Mass/Vol] 8.3 mg/dL Low 8.5-10.5 [facility] Comment on above: Performed By: #### C BCA, 28475-5, CMP, 89104-8, 1988-03, 04027- 0 #### [facility] ([id number]) [address] [place] [address] #### FEPR #### [facility] ([id number]) [address], [address] [place] [address] Chloride [Moles/Vol] 104 mmol/L Normal 98-109 [facility] Comment on above: Performed By: #### C BCA, 04279-0, CMP, 73421-8, 1988-03, 79728- 0 #### [facility] ([id number]) [address] [place] [address] #### FEPR #### [facility] ([id number]) [address], [address] [place] [address] CO2 [Moles/Vol] 24 mmol/L Normal 22-32 [facility] Comment on above: Performed By: #### C BCA, 48916-2, CMP, 82843-6, 1988-03, 13653- 0 #### [facility] ([id number]) [address] [place] [address] #### FEPR #### [facility] ([id number]) [address], [address] [place] [address] Creatinine [Mass/Vol] 0.81 mg/dL Normal 0.70-1.20 [facility] Comment on above: Result Comment: METH OD TRACEABLE TO IDMS STANDARD Performed By: #### C BCA, 35488-2, CMP, 81917-7, 1988-03, 27956-4 #### [facility] ([id number]) [address] [place] [address] #### FEPR #### [facility] ([id number]) [address], [address] [place] [address] eGFR (CKD-EPI) NON-RACE DEPENDENT >90 Normal >59 [facility] Comment on above: Result Comment: Reported eGFR is based on the CKD-EPI 2020 equation that does not use a race coefficient. Performed By: #### C BCA, 34375-8, CMP, 84326-9, 1988-03, 85874-5 #### [facility] ([id number]) [address] [place] [address] #### FEPR #### [facility] ([id number]) [address] [address], [address] [place] [address] Glucose [Mass/Vol] 108 mg/dL High 65-99 [facility] Comment on above: Performed By: #### C BCA, 88742-8, CMP, 04633-7, 1988-03, 96001- 0 #### [facility] ([id number]) [address] [place] [address] #### FEPR #### [facility] ([id number]) [address], [address] [place] [address] Potassium [Moles/Vol] 3.7 mmol/L Normal 3.5-5.0 [facility] Comment on above: Performed By: #### C BCA, 34431-8, CMP, 55422-4, 1988-03, 97270- 0 #### [facility] ([id number]) [address] [place] [address] #### FEPR #### [facility] ([id number]) [address], [address] [place] [address] Protein [Mass/Vol] 7.0 g/dL Normal 6.0-8.0 [facility] Comment on above: Performed By: #### C BCA, 85989-7, CMP, 35985-6, 1988-03, 71639- 0 #### [facility] ([id number]) [address] [place] [address] #### FEPR #### [facility] ([id number]) [address] [place] [address] Sodium [Moles/Vol] 137 mmol/L Normal 134-146 [facility] Comment on above: Performed By: #### C BCA, 31920-5, CMP, 68704-5, 1988-03, 57113- 0 #### [facility] ([id number]) [address] [place] [address] #### FEPR #### [facility] ([id number]) [address], [address] [place] [address] Urea nitrogen [Mass/Vol] 18 mg/dL Normal 5-27 [facility] Comment on above: Performed By: #### C BCA, 60763-9, CMP, 88681-7, 1988-03, 78786- 0 #### [facility] ([id number]) [address] [place] [address] #### FEPR #### [facility] ([id number]) [address], [address] [place] [address] CRP [Mass/Vol]on 08-02-2024 C REACTIVE PROTEIN 1.7 mg/dL High 0.000-0.744 [facility] Comment on above: Performed By: #### C BCA, 15270-2, CMP, 31797-2, 1988-03, 44159- 0 #### [facility] ([id number]) [address] [place] [address] #### FEPR #### [facility] ([id number]) [address], [address] [place] [address] MAGNESIUMon 08-02-2024 Magnesium [Mass/Vol] 2.1 mg/dL Normal 1.8-2.6 [facility] Comment on above: Performed By: #### C BCA, 57944-4, CMP, 97276-2, 1987-5, 96854- 0 #### [facility] ([id number]) [address] [place] [address] #### FEPR #### [facility] ([id number]) [address], [address] [place] [address] CBC AND AUTO DIFFon 08-01-20 24 ABSOLUTE BASOPHIL 0.0 X10E9/L Normal 0.0-0.2 [facility] Comment on above: Performed By: #### 6 30-4 #### [facility] ([id number]) [address], [address] [place] [address] ABSOLUTE NEUTROPHIL 4.4 X10E9/L Normal 1.5-6.6 [facility] Comment on above: Performed By: #### 6 30-4 #### [facility] ([id number]) [address], [address] [place] [address] Basophils/100 WBC (Bld) 0.6 % Normal [facility] Comment on above: Performed By: #### 6 30-4 #### [facility] ([id number]) [address] [address] [place] [address] Eosinophils (Bld) [#/Vol] 0.3 10*3/uL Normal 0.0-0.4 [facility] Comment on above: Performed By: #### 6 30-4 #### [facility] ([id number]) [address], [address] [place] [address] Eosinophils/100 WBC (Bld) 5.0 % Normal [facility] Comment on above: Performed By: #### 6 30-4 #### [facility] ([id number]) [address], [address] [place] [address] Erythrocyte distribution width (RBC) [Ratio] 16.6 % High 11.5-15.0 [facility] Comment on above: Performed By: #### 6 30-4 #### [facility] ([id number]) [address], [address] [place] [address] Hematocrit (Bld) [Volume fraction] 35.3 % Low 39-49 [facility] Comment on above: Performed By: #### 6 30-4 #### [facility] ([id number]) [address] [facility] [address] [place] [address] Hemoglobin (Bld) [Mass/Vol] 11.4 g/dL Low 13.0-17.0 [facility] Comment on above: Performed By: #### 6 30-4 #### [facility] ([id number]) [address], [address] [place] [address] Lymphocytes (Bld) [#/Vol] 1.1 10*3/uL Normal 1.0-3.5 [facility] Comment on above: Performed By: #### 6 30-4 #### [facility] ([id number]) [address], [address] [place] [address] Lymphocytes/100 WBC (Bld) 17.2 % Normal [facility] Comment on above: Performed By: #### 6 30-4 #### [facility] ([id number]) [address], [address] [place] [address] MCH (RBC) [Entitic mass] 26.8 pg Low 27-34 [facility] Comment on above: Performed By: #### 6 30-4 #### [facility] ([id number]) [address], [address] [place] [address] MCHC (RBC) [Mass/Vol] 32.3 g/dL Normal 32-36 [facility] Comment on above: Performed By: #### 6 30-4 #### [facility] ([id number]) [address], [address] [place] [address] MCV (RBC) [Entitic vol] 83 fL Normal 80-100 [facility] Comment on above: Performed By: #### 6 30-4 #### [facility] ([id number]) [address], [address] [place] [address] Monocytes (Bld) [#/Vol] 0.4 10*3/uL Normal 0-0.9 [facility] Comment on above: Performed By: #### 6 30-4 #### [facility] ([id number]) [address], [address] [place] [address] Monocytes/100 WBC (Bld) 7.2 % Normal [facility] Comment on above: Performed By: #### 6 30-4 #### [facility] ([id number]) [address], [address] [place] [address] Neutrophils/100 WBC (Bld) 70.0 % Normal [facility] Comment on above: Performed By: #### 6 30-4 #### [facility] ([id number]) [address], [address] [place] [address] Platelet mean volume (Bld) [Entitic vol] 6.1 fL Low 7-12 [facility] Comment on above: Performed By: #### 6 30-4 #### [facility] ([id number]) [address], [address] [place] [address] Platelets (Bld) [#/Vol] 310 10*3/uL Normal 150-450 [facility] Comment on above: Performed By: #### 6 30-4 #### [facility] ([id number]) [address], [address] [place] [address] RBC COUNT 4.24 X10E12/L Normal 4.10-5.70 [facility] Comment on above: Performed By: #### 6 30-4 #### [facility] ([id number]) [address], [address] [place] [address] WBC (Bld) [#/Vol] 6.2 10*3/uL Normal 4.0-11.0 [facility] Comment on above: Performed By: #### 6 30-4 #### [facility] ([id number]) [address], [address] [place] [address] COMPREHENSIVE METABOLIC PANE John 08-01-2024 Albumin [Mass/Vol] 3.4 g/dL Normal 3.2-5.3 [facility] Comment on above: Performed By: #### 6 30-4 #### [facility] ([id number]) [address], [address] [place] [address] ALP [Catalytic activity/Vol] 131 U/L High 39-130 [facility] Comment on above: Performed By: #### 6 30-4 #### [facility] ([id number]) [address], [address] [place] [address] ALT [Catalytic activity/Vol] 52 U/L High 0-40 [facility] Comment on above: Performed By: #### 6 30-4 #### [facility] ([id number]) [address], [address] [place] [address] Anion gap [Moles/Vol] 5 mmol/L Normal 5-15 [facility] Comment on above: Performed By: #### 6 30-4 #### [facility] ([id number]) [address], [address] [place] [address] AST [Catalytic activity/Vol] 28 U/L Normal 0-41 [facility] Comment on above: Performed By: #### 6 30-4 #### [facility] ([id number]) [address], [address] [place] [address] Bilirubin [Mass/Vol] 0.4 mg/dL Normal 0.3-1.2 [facility] Comment on above: Performed By: #### 6 30-4 #### [facility] ([id number]) [address], [address] [place] [address] Calcium [Mass/Vol] 8.7 mg/dL Normal 8.5-10.5 [facility] Comment on above: Performed By: #### 6 30-4 #### [facility] ([id number]) [address], [address] [place] [address] Chloride [Moles/Vol] 105 mmol/L Normal 98-109 [facility] Comment on above: Performed By: #### 6 30-4 #### [facility] ([id number]) [address], [address] [place] [address] CO2 [Moles/Vol] 27 mmol/L Normal 22-32 [facility] Comment on above: Performed By: #### 6 30-4 #### [facility] ([id number]) [address], [address] [place] [address] Creatinine [Mass/Vol] 0.78 mg/dL Normal 0.70-1.20 [facility] Comment on above: Result Comment: METH OD TRACEABLE TO IDMS STANDARD Performed By: #### 6 30-4 #### [facility] ([id number]) [address], [address] [place] [address] eGFR (CKD-EPI) NON-RACE DEPENDENT >90 Normal >59 [facility] Comment on above: Result Comment: Reported eGFR is based on the CKD-EPI 2020 equation that does not use a race coefficient. Performed By: #### 6 30-4 #### [facility] ([id number]) [address], [address] [place] [address] Glucose [Mass/Vol] 108 mg/dL High 65-99 [facility] Comment on above: Performed By: #### 6 30-4 #### [facility] ([id number]) [address], [address] [place] [address] Potassium [Moles/Vol] 4.3 mmol/L Normal 3.5-5.0 [facility] Comment on above: Performed By: #### 6 30-4 #### [facility] ([id number]) [address], [address] [place] [address] Protein [Mass/Vol] 7.6 g/dL Normal 6.0-8.0 [facility] Comment on above: Performed By: #### 6 30-4 #### [facility] ([id number]) [address], [address] [place] [address] Sodium [Moles/Vol] 137 mmol/L Normal 134-146 [facility] Comment on above: Performed By: #### 6 30-4 #### [facility] ([id number]) [address], [address] [place] [address] Urea nitrogen [Mass/Vol] 20 mg/dL Normal 5-27 [facility] Comment on above: Performed By: #### 6 30-4 #### [facility] ([id number]) [address], [address] [place] [address] MAGNESIUMon 08-01-2024 Magnesium [Mass/Vol] 2.4 mg/dL Normal 1.8-2.6 [facility] Comment on above: Performed By: #### 6 30-4 #### [facility] ([id number]) [address], [address] [place] [address] Vancomycin trough [Mass/Vol] on 08-01-2024 VANCOMYCIN TROUGH 16.2 ug/mL Normal 5.0-20.0 [facility] Comment on above: Performed By: #### 6 30-4 #### [facility] ([id number]) [address], [address] [place] [address] CBC AND AUTO DIFFon 07-31-20 24 ABSOLUTE BASOPHIL 0.0 X10E9/L Normal 0.0-0.2 [facility] Comment on above: Performed By: #### U A #### [facility] ([id number]) [address], [address] [place] [address] ABSOLUTE NEUTROPHIL 4.4 X10E9/L Normal 1.5-6.6 [facility] Comment on above: Performed By: #### U A #### [facility] ([id number]) [address], [facility] [address] [place] [address] Basophils/100 WBC (Bld) 0.6 % Normal [facility] Comment on above: Performed By: #### U A #### [facility] ([id number]) [address] [address] [place] [address] Eosinophils (Bld) [#/Vol] 0.3 10*3/uL Normal 0.0-0.4 [facility] Comment on above: Performed By: #### U A #### [facility] ([id number]) [address], [address] [place] [address] Eosinophils/100 WBC (Bld) 4.5 % Normal [facility] Comment on above: Performed By: #### U A #### [facility] ([id number]) [address] [address] [place] [address] Erythrocyte distribution width (RBC) [Ratio] 16.9 % High 11.5-15.0 [facility] Comment on above: Performed By: #### U A #### [facility] ([id number]) [address] [address] [place] [address] Hematocrit (Bld) [Volume fraction] 32.2 % Low 39-49 [facility] Comment on above: Performed By: #### U A #### [facility] ([id number]) [address], [address] [place] [address] Hemoglobin (Bld) [Mass/Vol] 10.5 g/dL Low 13.0-17.0 [facility] Comment on above: Performed By: #### U A #### [facility] ([id number]) [address], [address] [place] [address] Lymphocytes (Bld) [#/Vol] 1.3 10*3/uL Normal 1.0-3.5 [facility] Comment on above: Performed By: #### U A #### [facility] ([id number]) [address], [address] [place] [address] Lymphocytes/100 WBC (Bld) 19.9 % Normal [facility] Comment on above: Performed By: #### U A #### [facility] ([id number]) [address], [address] [place] [address] MCH (RBC) [Entitic mass] 26.6 pg Low 27-34 [facility] Comment on above: Performed By: #### U A #### [facility] ([id number]) [address], [address] [place] [address] MCHC (RBC) [Mass/Vol] 32.4 g/dL Normal 32-36 [facility] Comment on above: Performed By: #### U A #### [facility] ([id number]) [address], [address] [place] [address] MCV (RBC) [Entitic vol] 82 fL Normal 80-100 [facility] Comment on above: Performed By: #### U A #### [facility] ([id number]) [address] [place] [address] Monocytes (Bld) [#/Vol] 0.4 10*3/uL Normal 0-0.9 [facility] Comment on above: Performed By: #### U A #### [facility] ([id number]) [address], [address] [place] [address] Monocytes/100 WBC (Bld) 6.5 % Normal [facility] Comment on above: Performed By: #### U A #### [facility] ([id number]) [address], [address] [place] [address] Neutrophils/100 WBC (Bld) 68.5 % Normal [facility] Comment on above: Performed By: #### U A #### [facility] ([id number]) [address] [address] [place] [address] Platelet mean volume (Bld) [Entitic vol] 6.3 fL Low 7-12 [facility] Comment on above: Performed By: #### U A #### [facility] ([id number]) [address] [address] [place] [address] Platelets (Bld) [#/Vol] 297 10*3/uL Normal 150-450 [facility] Comment on above: Performed By: #### U A #### [facility] ([id number]) [address] [place] [address] RBC COUNT 3.94 X10E12/L Low 4.10-5.70 [facility] Comment on above: Performed By: #### U A #### [facility] ([id number]) [address] [address] [place] [address] WBC (Bld) [#/Vol] 6.5 10*3/uL Normal 4.0-11.0 [facility] Comment on above: Performed By: #### U A #### [facility] ([id number]) [address], [address] [place] [address] COMPREHENSIVE METABOLIC PANE John 07-31-2024 Albumin [Mass/Vol] 3.0 g/dL Low 3.2-5.3 [facility] Comment on above: Performed By: #### U A #### [facility] ([id number]) [address], [address] [place] [address] ALP [Catalytic activity/Vol] 125 U/L Normal 39-130 [facility] Comment on above: Performed By: #### U A #### [facility] ([id number]) [address], [address] [place] [address] ALT [Catalytic activity/Vol] 57 U/L High 0-40 [facility] Comment on above: Performed By: #### U A #### [facility] ([id number]) [address], [address] [place] [address] Anion gap [Moles/Vol] 8 mmol/L Normal 5-15 [facility] Comment on above: Performed By: #### U A #### [facility] ([id number]) [address] [place] [address] AST [Catalytic activity/Vol] 34 U/L Normal 0-41 [facility] Comment on above: Performed By: #### U A #### [facility] ([id number]) [address], [address] [place] [address] Bilirubin [Mass/Vol] 0.5 mg/dL Normal 0.3-1.2 [facility] Comment on above: Performed By: #### U A #### [facility] ([id number]) [address], [address] [place] [address] Calcium [Mass/Vol] 8.7 mg/dL Normal 8.5-10.5 [facility] Comment on above: Performed By: #### U A #### [facility] ([id number]) [address], [address] [place] [address] Chloride [Moles/Vol] 105 mmol/L Normal 98-109 [facility] Comment on above: Performed By: #### U A #### [facility] ([id number]) [address], [address] [place] [address] CO2 [Moles/Vol] 27 mmol/L Normal 22-32 [facility] Comment on above: Performed By: #### U A #### [facility] ([id number]) [address] [place] [address] Creatinine [Mass/Vol] 0.83 mg/dL Normal 0.70-1.20 [facility] Comment on above: Result Comment: METH OD TRACEABLE TO IDMS STANDARD Performed By: #### U A #### [facility] ([id number]) [address] [place] [address] eGFR (CKD-EPI) NON-RACE DEPENDENT >90 Normal >59 [facility] Comment on above: Result Comment: Reported eGFR is based on the CKD-EPI 2020 equation that does not use a race coefficient. Performed By: #### U A #### [facility] ([id number]) [address] [place] [address] Glucose [Mass/Vol] 131 mg/dL High 65-99 [facility] Comment on above: Performed By: #### U A #### [facility] ([id number]) [address] [place] [address] Potassium [Moles/Vol] 3.8 mmol/L Normal 3.5-5.0 [facility] Comment on above: Performed By: #### U A #### [facility] ([id number]) [address], [address] [place] [address] Protein [Mass/Vol] 6.9 g/dL Normal 6.0-8.0 [facility] Comment on above: Performed By: #### U A #### [facility] ([id number]) [address] [place] [address] Sodium [Moles/Vol] 140 mmol/L Normal 134-146 [facility] Comment on above: Performed By: #### U A #### [facility] ([id number]) [address], [address] [place] [address] Urea nitrogen [Mass/Vol] 20 mg/dL Normal 5-27 [facility] Comment on above: Performed By: #### U A #### [facility] ([id number]) [address] [place] [address] CRP [Mass/Vol]on 07-31-2024 C REACTIVE PROTEIN 4.9 mg/dL High 0.000-0.744 [facility] Comment on above: Performed By: #### 6 30-4 #### [facility] ([id number]) [address], [address] [place] [address] MAGNESIUMon 07-31-2024 Magnesium [Mass/Vol] 2.2 mg/dL Normal 1.8-2.6 [facility] Comment on above: Performed By: #### 6 30-4 #### [facility] ([id number]) [address], [address] [place] [address] Magnesium [Mass/Vol] 1.9 mg/dL Normal 1.8-2.6 [facility] Comment on above: Performed By: #### U A #### [facility] ([id number]) [address], [address] [place] [address] POTASSIUMon 07-31-2024 Potassium [Moles/Vol] 3.9 mmol/L Normal 3.5-5.0 [facility] Comment on above: Performed By: #### 6 30-4 #### [facility] ([id number]) [address], [address] [place] [address] Procalcitonin IA [Mass/Vol]o n 07-31-2024 PROCALCITONIN 0.08 ng/mL High <0.05 [facility] Comment on above: Result Comment: NOTE <0.50 ng/mL - Low risk of severe sepsis and/or septic shock. <2.00 ng/mL - Recommend retesting within 6-24 hours. >2.00 ng/mL - High risk of sepsis and/or septic shock. Performed By: #### 6 30-4 #### [facility] ([id number]) [address] [place] [address] BASIC METABOLIC PANLon 07-30 Anion gap [Moles/Vol] 7 mmol/L Normal 5-15 [facility] Comment on above: Performed By: #### 3 5492-8 #### [facility] ([id number]) [address] [place] [address] Calcium [Mass/Vol] 9.0 mg/dL Normal 8.5-10.5 [facility] Comment on above: Performed By: #### 3 5492-8 #### [facility] ([id number]) [address] [place] [address] Chloride [Moles/Vol] 106 mmol/L Normal 98-109 [facility] Comment on above: Performed By: #### 3 5492-8 #### [facility] ([id number]) [address] [place] [address] CO2 [Moles/Vol] 25 mmol/L Normal 22-32 [facility] Comment on above: Performed By: #### 3 5492-8 #### [facility] ([id number]) [address] [place] [address] Creatinine [Mass/Vol] 0.96 mg/dL Normal 0.70-1.20 [facility] Comment on above: Result Comment: METH OD TRACEABLE TO IDMS STANDARD Performed By: #### 3 5492-8 #### [facility] ([id number]) [address] [place] [address] GFR/1.73 sq M.predicted among non-blacks MDRD (S/P/Bld) [Vol rate/Area] 84 mL/min/{1.73_m2} Normal >59 [facility] Comment on above: Result Comment: Reported eGFR is based on the CKD-EPI 2020 equation that does not use a race coefficient. Performed By: #### 3 5492-8 #### [facility] ([id number]) [address] [place] [address] Glucose [Mass/Vol] 95 mg/dL Normal 65-99 [facility] Comment on above: Performed By: #### 3 5492-8 #### [facility] ([id number]) [address] [place] [address] Potassium [Moles/Vol] 4.6 mmol/L Normal 3.5-5.0 [facility] Comment on above: Result Comment: SPEC IMEN HEMOLYZED, RESULTS INCREASED Performed By: #### 3 5492-8 #### [facility] ([id number]) [address] [place] [address] Sodium [Moles/Vol] 138 mmol/L Normal 134-146 [facility] Comment on above: Performed By: #### 3 5492-8 #### [facility] ([id number]) [address] [place] [address] Urea nitrogen [Mass/Vol] 21 mg/dL Normal 5-27 [facility] Comment on above: Performed By: #### 3 5492-8 #### [facility] ([id number]) [address], [address] [place] [address] BLOOD CULTUREon 07-30-2024 Bacteria identified Aer cx Nom (Bld) SPECIMEN NOTES SUBOPTIMAL VOLUME OF BLOOD COLLECTED, RESULTS MAY BE AFFECTED. CULTURE RESULTS NO GROWTH 5 DAYS Normal [facility] Comment on above: Performed By: #### 6 30-4 #### [facility] ([id number]) [address], [address] [place] [address] Bacteria identified Aer cx Nom (Bld) SPECIMEN NOTES SUBOPTIMAL VOLUME OF BLOOD COLLECTED, RESULTS MAY BE AFFECTED. CULTURE RESULTS NO GROWTH 5 DAYS Normal [facility] Comment on above: Performed By: #### 6 30-4 #### [facility] ([id number]) [address], [address] [place] [address] CBC AND AUTO DIFFon 07-30-20 24 ABSOLUTE BASOPHIL 0.1 X10E9/L Normal 0.0-0.2 [facility] Comment on above: Performed By: #### 3 5492-8 #### [facility] ([id number]) [address], [address] [place] [address] ABSOLUTE NEUTROPHIL 5.5 X10E9/L Normal 1.5-6.6 [facility] [facility] Comment on above: Performed By: #### 3 5492-8 #### [facility] ([id number]) [address], [address] [place] [address] Basophils/100 WBC (Bld) 1.1 % Normal [facility] Comment on above: Performed By: #### 3 5492-8 #### [facility] ([id number]) [address], [address] [place] [address] Eosinophils (Bld) [#/Vol] 0.2 10*3/uL Normal 0.0-0.4 [facility] Comment on above: Performed By: #### 3 5492-8 #### [facility] ([id number]) [address], [address] [place] [address] Eosinophils/100 WBC (Bld) 2.7 % Normal [facility] Comment on above: Performed By: #### 3 5492-8 #### [facility] ([id number]) [address], [address] [place] [address] Erythrocyte distribution width (RBC) [Ratio] 16.5 % High 11.5-15.0 [facility] Comment on above: Performed By: #### 3 5492-8 #### [facility] ([id number]) [address], [address] [place] [address] Hematocrit (Bld) [Volume fraction] 36.2 % Low 39-49 [facility] Comment on above: Performed By: #### 3 5492-8 #### [facility] ([id number]) [address], [address] [place] [address] Hemoglobin (Bld) [Mass/Vol] 12.0 g/dL Low 13.0-17.0 [facility] Comment on above: Performed By: #### 3 5492-8 #### [facility] ([id number]) [address], [address] [place] [address] Lymphocytes (Bld) [#/Vol] 1.5 10*3/uL Normal 1.0-3.5 [facility] Comment on above: Performed By: #### 3 5492-8 #### [facility] ([id number]) [address], [address] [place] [address] Lymphocytes/100 WBC (Bld) 19.1 % Normal [facility] Comment on above: Performed By: #### 3 5492-8 #### [facility] ([id number]) [address], [address] [place] [address] MCH (RBC) [Entitic mass] 26.9 pg Low 27-34 [facility] Comment on above: Performed By: #### 3 5492-8 #### [facility] ([id number]) [address], [address] [place] [address] MCHC (RBC) [Mass/Vol] 33.2 g/dL Normal 32-36 [facility] Comment on above: Performed By: #### 3 5492-8 #### [facility] ([id number]) [address], [address] [place] [address] MCV (RBC) [Entitic vol] 81 fL Normal 80-100 [facility] Comment on above: Performed By: #### 3 5492-8 #### [facility] ([id number]) [address] [place] [address] Monocytes (Bld) [#/Vol] 0.5 10*3/uL Normal 0-0.9 [facility] Comment on above: Performed By: #### 3 5492-8 #### [facility] ([id number]) [address] [place] [address] Monocytes/100 WBC (Bld) 6.7 % Normal [facility] Comment on above: Performed By: #### 3 5492-8 #### [facility] ([id number]) [address] [place] [address] Neutrophils/100 WBC (Bld) 70.4 % Normal [facility] Comment on above: Performed By: #### 3 5492-8 #### [facility] ([id number]) [address] [place] [address] Platelet mean volume (Bld) [Entitic vol] 7.1 fL Normal 7-12 [facility] Comment on above: Performed By: #### 3 5492-8 #### [facility] ([id number]) [address], [address] [place] [address] Platelets (Bld) [#/Vol] 393 10*3/uL Normal 150-450 [facility] Comment on above: Performed By: #### 3 5492-8 #### [facility] ([id number]) [address], [address] [place] [address] RBC COUNT 4.46 X10E12/L Normal 4.10-5.70 [facility] Comment on above: Performed By: #### 3 5492-8 #### [facility] ([id number]) [address] [place] [address] WBC (Bld) [#/Vol] 7.8 10*3/uL Normal 4.0-11.0 [facility] Comment on above: Performed By: #### 3 5492-8 #### [facility] ([id number]) [address], [facility] [address] [place] [address] Lactate (P mary alice) [Moles/Vol]o n 07-30-2024 LACTATE W/REFLEX 1.2 mmol/L Normal 0.4-2.0 [facility] Comment on above: Result Comment: Result did not trigger repeat Lactate, re-order if needed. Performed By: #### U A #### [facility] ([id number]) [address] [address] [place] [address] MAGNESIUMon 07-30-2024 Magnesium [Mass/Vol] 2.0 mg/dL Normal 1.8-2.6 [facility] Comment on above: Result Comment: SPEC IMEN HEMOLYZED, RESULTS INCREASED Performed By: #### U A #### [facility] ([id number]) [address] [address] [place] [address] Natriuretic peptide B [Mass/ Vol]on 07-30-2024 Natriuretic peptide B (Bld) [Mass/Vol] 10 pg/mL Normal <100.0 [facility] Comment on above: Performed By: #### U A #### [facility] ([id number]) [address], [address] [place] [address] Troponin I.cardiac High sens itivity method [Mass/Vol]on 07-30-2024 1 HOUR TROP I, HIGH SENSITIVITY 12 ng/L Normal <21 [facility] Comment on above: Performed By: #### U A #### [facility] ([id number]) [address] [facility], [address] [place] [address] TROPONIN I, HIGH SENSITIVITY 11 ng/L Normal <21 [facility] Comment on above: Performed By: #### U A #### [facility] ([id number]) [address] [facility], [address] [place] [address] XR FOOT RT MIN 3 VWSon 07-30 XR FOOT RT MIN 3 VWS XR FOOT RT MIN 3 VWS HISTORY: Cellulitis, pain and swelling COMPARISON: Right foot x-rays 03/12/2024 FINDINGS: Multiple views of the right foot were obtained. Osseous structures are grossly intact with normal alignment. No definite bony destructive process. Degenerative changes involving the tibiotalar joint, midfoot and first metatarsophalangeal joint. Diffuse swelling without soft tissue gas. Calcaneal enthesophytes. IMPRESSION: * No acute osseous abnormality. * Diffuse soft tissue swelling without soft tissue gas. Finalized by Lenny Patrick MD on 07/30/2024 7:10 PM Normal [facility] XR TIBIA FIBULA RT MIN 2 VWS on 07-30-2024 XR TIBIA FIBULA RT MIN 2 VWS XR TIBIA FIBULA RT MIN 2 VWS EXAM: XR TIBIA FIBULA RT MIN 2 VWS CLINICAL INDICATIONS: Evaluate for potential osteomyelitis FINDINGS/IMPRESSION: Postoperative changes total knee arthroplasty and patellar resurfacing without evidence of hardware complication. No evidence of osseous erosion by technique. Lower extremity edema. Please note that MRI or white blood scan is more sensitive to assess for osteomyelitis or postoperative infection. Finalized by Mo Alba on 07/30/2024 7:14 PM Normal [facility] Opticell Alginate AGon 07-02 Applied in clinic today. MANUALLY TRANSCRIBED RESULTS [facility] BASIC METABOLIC PANLon 06-10 Anion gap [Moles/Vol] 8 mmol/L Normal 5-15 [facility] Comment on above: Performed By: #### 3 5492-8 #### [facility] ([id number]) [address], [address] [place] [address] Calcium [Mass/Vol] 9.1 mg/dL Normal 8.5-10.5 [facility] Comment on above: Performed By: #### 3 5492-8 #### [facility] ([id number]) [address], [address] [place] [address] Chloride [Moles/Vol] 102 mmol/L Normal 98-109 [facility] Comment on above: Performed By: #### 3 5492-8 #### [facility] ([id number]) [address], [address] [place] [address] CO2 [Moles/Vol] 27 mmol/L Normal 22-32 [facility] Comment on above: Performed By: #### 3 5492-8 #### [facility] ([id number]) [address], [address] [place] [address] Creatinine [Mass/Vol] 0.80 mg/dL Normal 0.70-1.20 [facility] Comment on above: Result Comment: METH OD TRACEABLE TO IDMS STANDARD Performed By: #### 3 5492-8 #### [facility] ([id number]) [address], [address] [place] [address] eGFR (CKD-EPI) NON-RACE DEPENDENT >90 Normal >59 [facility] Comment on above: Result Comment: Reported eGFR is based on the CKD-EPI 1 equation that does not use a race coefficient. Performed By: #### 3 5492-8 #### [facility] ([id number]) [address], [address] [place] [address] Glucose [Mass/Vol] 102 mg/dL High 65-99 [facility] Comment on above: Performed By: #### 3 5492-8 #### [facility] ([id number]) [address], [address] [place] [address] Potassium [Moles/Vol] 3.8 mmol/L Normal 3.5-5.0 [facility] Comment on above: Performed By: #### 3 5492-8 #### [facility] ([id number]) [address], [address] [place] [address] Sodium [Moles/Vol] 137 mmol/L Normal 134-146 [facility] Comment on above: Performed By: #### 3 5492-8 #### [facility] ([id number]) [address], [address] [place] [address] Urea nitrogen [Mass/Vol] 13 mg/dL Normal 5-27 [facility] Comment on above: Performed By: #### 3 5492-8 #### [facility] ([id number]) [address], [address] [place] [address] CBC AND AUTO DIFFon 06-10-20 ABSOLUTE BASOPHIL 0.0 X10E9/L Normal 0.0-0.2 [facility] Comment on above: Performed By: #### 3 5492-8 #### [facility] ([id number]) [address], [address] [place] [address] ABSOLUTE NEUTROPHIL 5.3 X10E9/L Normal 1.5-6.6 [facility] Comment on above: Performed By: #### 3 5492-8 #### [facility] ([id number]) [address], [address] [place] [address] Basophils/100 WBC (Bld) 0.5 % Normal [facility] Comment on above: Performed By: #### 3 5492-8 #### [facility] ([id number]) [address], [address] [place] [address] Eosinophils (Bld) [#/Vol] 0.2 10*3/uL Normal 0.0-0.4 [facility] Comment on above: Performed By: #### 3 5492-8 #### [facility] ([id number]) [address], [address] [place] [address] Eosinophils/100 WBC (Bld) 3.2 % Normal [facility] Comment on above: Performed By: #### 3 5492-8 #### [facility] ([id number]) [address], [address] [place] [address] Erythrocyte distribution width (RBC) [Ratio] 16.6 % High 11.5-15.0 [facility] Comment on above: Performed By: #### 3 5492-8 #### [facility] ([id number]) [address], [address] [place] [address] Hematocrit (Bld) [Volume fraction] 34.7 % Low 39-49 [facility] Comment on above: Performed By: #### 3 5492-8 #### [facility] ([id number]) [address], [address] [place] [address] Hemoglobin (Bld) [Mass/Vol] 11.5 g/dL Low 13.0-17.0 [facility] Comment on above: Performed By: #### 3 5492-8 #### [facility] ([id number]) [address], [address] [place] [address] Lymphocytes (Bld) [#/Vol] 1.1 10*3/uL Normal 1.0-3.5 [facility] Comment on above: Performed By: #### 3 5492-8 #### [facility] ([id number]) [address], [address] [place] [address] Lymphocytes/100 WBC (Bld) 15.5 % Normal [facility] Comment on above: Performed By: #### 3 5492-8 #### [facility] ([id number]) [address], [address] [place] [address] MCH (RBC) [Entitic mass] 27.7 pg Normal 27-34 [facility] Comment on above: Performed By: #### 3 5492-8 #### [facility] ([id number]) [address], [address] [place] [address] MCHC (RBC) [Mass/Vol] 33.0 g/dL Normal 32-36 [facility] Comment on above: Performed By: #### 3 5492-8 #### [facility] ([id number]) [address], [address] [place] [address] MCV (RBC) [Entitic vol] 84 fL Normal 80-100 [facility] Comment on above: Performed By: #### 3 5492-8 #### [facility] ([id number]) [address], [address] [place] [address] Monocytes (Bld) [#/Vol] 0.4 10*3/uL Normal 0-0.9 [facility] Comment on above: Performed By: #### 3 5492-8 #### [facility] ([id number]) [address] [place] [address] Monocytes/100 WBC (Bld) 5.5 % Normal [facility] Comment on above: Performed By: #### 3 5492-8 #### [facility] ([id number]) [address], [address] [place] [address] Neutrophils/100 WBC (Bld) 75.3 % Normal [facility] Comment on above: Performed By: #### 3 5492-8 #### [facility] ([id number]) [address] [place] [address] Platelet mean volume (Bld) [Entitic vol] 6.3 fL Low 7-12 [facility] Comment on above: Performed By: #### 3 5492-8 #### [facility] ([id number]) [address], [address] [place] [address] Platelets (Bld) [#/Vol] 268 10*3/uL Normal 150-450 [facility] Comment on above: Performed By: #### 3 5492-8 #### [facility] ([id number]) [address], [facility] [address] [place] [address] RBC COUNT 4.13 X10E12/L Normal 4.10-5.70 [facility] Comment on above: Performed By: #### 3 5492-8 #### [facility] ([id number]) [address] [address] [place] [address] WBC (Bld) [#/Vol] 7.0 10*3/uL Normal 4.0-11.0 [facility] Comment on above: Performed By: #### 3 5492-8 #### [facility] ([id number]) [address], [facility] [address] [place] [address] Fibrin D-dimer DDU (PPP) [Ma ss/Vol]on 06-10-2024 D DIMER 3432 ng/mL DDU High <255 [facility] Comment on above: Result Comment: Results >=255ng/mL DDU: Results may be indicative of the presence of VTE. The use of the Wells score and further diagnostic tests should be considered. Elevated D-Dimer levels can also be associated with DIC, neoplasm, , trauma and liver disease. Elevated levels of rheumatoid factor may lead to an overestimation of the D-Dimer level. Performed By: #### 3 5492-8 #### [facility] ([id number]) [address] [address] [place] [address] BASIC METABOLIC PANLon 06-02 Anion gap [Moles/Vol] 10 mmol/L Normal 5-15 [facility] Comment on above: Performed By: #### 3 5492-8 #### [facility] ([id number]) [address] [address] [place] [address] Calcium [Mass/Vol] 9.7 mg/dL Normal 8.5-10.5 [facility] Comment on above: Performed By: #### 3 5492-8 #### [facility] ([id number]) [address] [place] [address] Chloride [Moles/Vol] 103 mmol/L Normal 98-109 [facility] Comment on above: Performed By: #### 3 5492-8 #### [facility] ([id number]) [address] [place] [address] CO2 [Moles/Vol] 29 mmol/L Normal 22-32 [facility] Comment on above: Performed By: #### 3 5492-8 #### [facility] ([id number]) [address] [place] [address] Creatinine [Mass/Vol] 0.93 mg/dL Normal 0.60-1.30 [facility] Comment on above: Result Comment: METH OD TRACEABLE TO IDMS STANDARD Performed By: #### 3 5492-8 #### [facility] ([id number]) [address] [place] [address] GFR/1.73 sq M.predicted among non-blacks MDRD (S/P/Bld) [Vol rate/Area] 87 mL/min/{1.73_m2} Normal >59 [facility] Comment on above: Result Comment: Reported eGFR is based on the CKD-EPI 2020 equation that does not use a race coefficient. Performed By: #### 3 5492-8 #### [facility] ([id number]) [address] [place] [address] Glucose [Mass/Vol] 96 mg/dL Normal 65-99 [facility] Comment on above: Performed By: #### 3 5492-8 #### [facility] ([id number]) [address] [place] [address] Potassium [Moles/Vol] 4.2 mmol/L Normal 3.5-5.0 [facility] Comment on above: Performed By: #### 3 5492-8 #### [facility] ([id number]) [address] [place] [address] Sodium [Moles/Vol] 142 mmol/L Normal 134-146 [facility] Comment on above: Performed By: #### 3 5492-8 #### [facility] ([id number]) [address] [place] [address] Urea nitrogen [Mass/Vol] 18 mg/dL Normal 5-27 [facility] Comment on above: Performed By: #### 3 5492-8 #### [facility] ([id number]) [address] [place] [address] Office Visiton 05-31-2024 Follow-up visit [id number] Royce Delaney 1950 M Date Provider Department Center 05/31/2024 [facility] MP ORTHO MPORTHO No family history on file Level of Service:45348 [place] POSTOP FOLLOW UP VISIT RELATED TO ORIGINAL PX (GC) Reason for Visit and Comments: Post-op [483] [facility] 36on 05-28-2024 36 VERBAL SENT. [facility] o [facility] 36 Patient discharged f [facility], Rash[facility] with [facility] would like to resume therapy and add home nursing services once a week for 2 weeks [id number] [facility] CBC AND AUTO DIFFon 05-27-20 24 ABSOLUTE BASOPHIL 0.1 X10E9/L Normal 0.0-0.2 [facility] Comment on above: Performed By: #### 3 5492-8 #### [facility] ([id number]) [address] [place] [address] ABSOLUTE NEUTROPHIL 5.9 X10E9/L Normal 1.5-6.6 [facility] Comment on above: Performed By: #### 3 5492-8 #### [facility] ([id number]) [address] [place] [address] Basophils/100 WBC (Bld) 0.7 % Normal [facility] Comment on above: Performed By: #### 3 5492-8 #### [facility] ([id number]) [address] [place] [address] Eosinophils (Bld) [#/Vol] 0.3 10*3/uL Normal 0.0-0.4 [facility] Comment on above: Performed By: #### 3 5492-8 #### [facility] ([id number]) [address] [place] [address] Eosinophils/100 WBC (Bld) 3.4 % Normal [facility] Comment on above: Performed By: #### 3 5492-8 #### [facility] ([id number]) [address] [place] [address] Erythrocyte distribution width (RBC) [Ratio] 16.4 % High 11.5-15.0 [facility] Comment on above: Performed By: #### 3 5492-8 #### [facility] ([id number]) [address] [place] [address] Hematocrit (Bld) [Volume fraction] 35.9 % Low 39-49 [facility] Comment on above: Performed By: #### 3 5492-8 #### [facility] ([id number]) [address] [place] [address] Hemoglobin (Bld) [Mass/Vol] 11.7 g/dL Low 13.0-17.0 [facility] Comment on above: Performed By: #### 3 5492-8 #### [facility] ([id number]) [address] [place] [address] Lymphocytes (Bld) [#/Vol] 1.3 10*3/uL Normal 1.0-3.5 [facility] Comment on above: Performed By: #### 3 5492-8 #### [facility] ([id number]) [address] [place] [address] Lymphocytes/100 WBC (Bld) 16.0 % Normal [facility] Comment on above: Performed By: #### 3 5492-8 #### [facility] ([id number]) [address], [facility] [address] [place] [address] MCH (RBC) [Entitic mass] 27.9 pg Normal 27-34 [facility] Comment on above: Performed By: #### 3 5492-8 #### [facility] ([id number]) [address] [place] [address] MCHC (RBC) [Mass/Vol] 32.6 g/dL Normal 32-36 [facility] Comment on above: Performed By: #### 3 5492-8 #### [facility] ([id number]) [address] [place] [address] MCV (RBC) [Entitic vol] 86 fL Normal 80-100 [facility] Comment on above: Performed By: #### 3 5492-8 #### [facility] ([id number]) [address] [place] [address] Monocytes (Bld) [#/Vol] 0.5 10*3/uL Normal 0-0.9 [facility] Comment on above: Performed By: #### 3 5492-8 #### [facility] ([id number]) [address] [place] [address] Monocytes/100 WBC (Bld) 6.1 % Normal [facility] Comment on above: Performed By: #### 3 5492-8 #### [facility] ([id number]) [address] [place] [address] Neutrophils/100 WBC (Bld) 73.8 % Normal [facility] Comment on above: Performed By: #### 3 5492-8 #### [facility] ([id number]) [address] [place] [address] Platelet mean volume (Bld) [Entitic vol] 6.1 fL Low 7-12 [facility] Comment on above: Performed By: #### 3 5492-8 #### [facility] ([id number]) [address] [place] [address] Platelets (Bld) [#/Vol] 345 10*3/uL Normal 150-450 [facility] Comment on above: Performed By: #### 3 5492-8 #### [facility] ([id number]) [address] [place] [address] RBC COUNT 4.19 X10E12/L Normal 4.10-5.70 [facility] Comment on above: Performed By: #### 3 5492-8 #### [facility] ([id number]) [address] [address] [place] [address] WBC (Bld) [#/Vol] 8.0 10*3/uL Normal 4.0-11.0 [facility] Comment on above: Performed By: #### 3 5492-8 #### [facility] ([id number]) [address] [place] [address] COMPREHENSIVE METABOLIC PANE John 05-27-2024 Albumin [Mass/Vol] 3.5 g/dL Normal 3.2-5.3 [facility] Comment on above: Performed By: #### 3 5492-8 #### [facility] ([id number]) [address] [place] [address] ALP [Catalytic activity/Vol] 126 U/L Normal 39-130 [facility] Comment on above: Performed By: #### 3 5492-8 #### [facility] ([id number]) [address] [place] [address] ALT [Catalytic activity/Vol] 51 U/L High 0-40 [facility] Comment on above: Performed By: #### 3 5492-8 #### [facility] ([id number]) [address] [place] [address] Anion gap [Moles/Vol] 2 mmol/L Low 5-15 [facility] Comment on above: Performed By: #### 3 5492-8 #### [facility] ([id number]) [address] [place] [address] AST [Catalytic activity/Vol] 28 U/L Normal 0-41 [facility] Comment on above: Performed By: #### 3 5492-8 #### [facility] ([id number]) [address] [place] [address] Bilirubin [Mass/Vol] 0.4 mg/dL Normal 0.3-1.2 [facility] Comment on above: Performed By: #### 3 5492-8 #### [facility] ([id number]) [address] [place] [address] Calcium [Mass/Vol] 8.7 mg/dL Normal 8.5-10.5 [facility] Comment on above: Performed By: #### 3 5492-8 #### [facility] ([id number]) [address] [place] [address] Chloride [Moles/Vol] 106 mmol/L Normal 98-109 [facility] Comment on above: Performed By: #### 3 5492-8 #### [facility] ([id number]) [address], [address] [place] [address] CO2 [Moles/Vol] 26 mmol/L Normal 22-32 [facility] Comment on above: Performed By: #### 3 5492-8 #### [facility] ([id number]) [address], [address] [place] [address] Creatinine [Mass/Vol] 0.79 mg/dL Normal 0.70-1.20 [facility] Comment on above: Result Comment: METH OD TRACEABLE TO IDMS STANDARD Performed By: #### 3 5492-8 #### [facility] ([id number]) [address], [address] [place] [address] eGFR (CKD-EPI) NON-RACE DEPENDENT >90 Normal >59 [facility] Comment on above: Result Comment: Reported eGFR is based on the CKD-EPI 2020 equation that does not use a race coefficient. Performed By: #### 3 5492-8 #### [facility] ([id number]) [address], [address] [place] [address] Glucose [Mass/Vol] 112 mg/dL High 65-99 [facility] Comment on above: Performed By: #### 3 5492-8 #### [facility] ([id number]) [address], [address] [place] [address] Potassium [Moles/Vol] 3.7 mmol/L Normal 3.5-5.0 [facility] Comment on above: Performed By: #### 3 5492-8 #### [facility] ([id number]) [address], [address] [place] [address] Protein [Mass/Vol] 7.5 g/dL Normal 6.0-8.0 [facility] Comment on above: Performed By: #### 3 5492-8 #### [facility] ([id number]) [address], [address] [place] [address] Sodium [Moles/Vol] 134 mmol/L Normal 134-146 [facility] Comment on above: Performed By: #### 3 5492-8 #### [facility] ([id number]) [address], [address] [place] [address] Urea nitrogen [Mass/Vol] 17 mg/dL Normal 5-27 [facility] Comment on above: Performed By: #### 3 5492-8 #### [facility] ([id number]) [address] [facility], [address] [place] [address] MAGNESIUMon 05-27-2024 Magnesium [Mass/Vol] 2.1 mg/dL Normal 1.8-2.6 [facility] Comment on above: Performed By: #### 3 5492-8 #### [facility] ([id number]) [address], [address] [place] [address] Vancomycin trough [Mass/Vol] on 05-27-2024 VANCOMYCIN TROUGH 10.5 ug/mL Normal 5.0-20.0 [facility] Comment on above: Performed By: #### 3 5492-8 #### [facility] ([id number]) [address], [address] [place] [address] CBC AND AUTO DIFFon 05-26-20 24 ABSOLUTE BASOPHIL 0.1 X10E9/L Normal 0.0-0.2 [facility] Comment on above: Performed By: #### P INR, 65449-8 #### [facility] ([id number]) [address] [place] [address] ABSOLUTE NEUTROPHIL 8.4 X10E9/L High 1.5-6.6 [facility] Comment on above: Performed By: #### P INR, 88706-3 #### [facility] ([id number]) [address] [place] [address]957 Basophils/100 WBC (Bld) 0.9 % Normal [facility] Comment on above: Performed By: #### P INR, 81419-0 #### [facility] ([id number]) [address] [place] [address] Eosinophils (Bld) [#/Vol] 0.3 10*3/uL Normal 0.0-0.4 [facility] Comment on above: Performed By: #### P INR, 33970-0 #### [facility] ([id number]) [address] [place] [address]82 Eosinophils/100 WBC (Bld) 2.9 % Normal [facility] Comment on above: Performed By: #### P INR, 08625-0 #### [facility] ([id number]) [address] [place] [address] Erythrocyte distribution width (RBC) [Ratio] 16.2 % High 11.5-15.0 [facility] Comment on above: Performed By: #### P INR, 52732-6 #### [facility] ([id number]) [address] [place] [address] 14587 Hematocrit (Bld) [Volume fraction] 32.2 % Low 39-49 [facility] Comment on above: Performed By: #### P INR, 80835-3 #### [facility] ([id number]) [address] [place] [address]79 Hemoglobin (Bld) [Mass/Vol] 10.4 g/dL Low 13.0-17.0 [facility] Comment on above: Performed By: #### P INR, 98095-6 #### [facility] ([id number]) [address] [place] [address] 28094 Lymphocytes (Bld) [#/Vol] 2.0 10*3/uL Normal 1.0-3.5 [facility] Comment on above: Performed By: #### P INR, 20836-2 #### [facility] ([id number]) [address] [place] [address] 84373 Lymphocytes/100 WBC (Bld) 17.6 % Normal [facility] Comment on above: Performed By: #### P INR, 36323-7 #### [facility] ([id number]) [address] [place] [address] 62810 MCH (RBC) [Entitic mass] 27.7 pg Normal 27-34 [facility] Comment on above: Performed By: #### P INR, 21931-4 #### [facility] ([id number]) [address] [place] [address] 60059 MCHC (RBC) [Mass/Vol] 32.5 g/dL Normal 32-36 [facility] Comment on above: Performed By: #### P INR, 69849-1 #### [facility] ([id number]) [address] [place] [address] 96600 MCV (RBC) [Entitic vol] 85 fL Normal 80-100 [facility] Comment on above: Performed By: #### P INR, 74579-7 #### [facility] ([id number]) [address] [place] [address] 94396 Monocytes (Bld) [#/Vol] 0.7 10*3/uL Normal 0-0.9 [facility] Comment on above: Performed By: #### P INR, 43849-7 #### [facility] ([id number]) [address] [place] [address] 30569 Monocytes/100 WBC (Bld) 6.0 % Normal [facility] Comment on above: Performed By: #### P INR, 15085-1 #### [facility] ([id number]) [address] [place] [address] 01682 Neutrophils/100 WBC (Bld) 72.6 % Normal [facility] Comment on above: Performed By: #### P INR, 46702-0 #### [facility] ([id number]) [address] [place] [address] 79305 Platelet mean volume (Bld) [Entitic vol] 6.5 fL Low 7-12 [facility] Comment on above: Performed By: #### P INR, 31122-7 #### [facility] ([id number]) [address] [place] [address] 76247 Platelets (Bld) [#/Vol] 320 10*3/uL Normal 150-450 [facility] Comment on above: Performed By: #### P INR, 78076-5 #### [facility] ([id number]) [address] [place] [address] 78074 RBC COUNT 3.76 X10E12/L Low 4.10-5.70 [facility] Comment on above: Performed By: #### P INR, 13841-4 #### [facility] ([id number]) [address] [place] [address] 24766 WBC (Bld) [#/Vol] 11.5 10*3/uL High 4.0-11.0 [facility] Comment on above: Performed By: #### P INR, 47007-2 #### [facility] ([id number]) [address] [place] [address] 767[address] COMPREHENSIVE METABOLIC PANE John 05-26-2024 Albumin [Mass/Vol] 3.0 g/dL Low 3.2-5.3 [facility] Comment on above: Performed By: #### P INR, 26103-8 #### [facility] ([id number]) [address] [place] [address] 91622 ALP [Catalytic activity/Vol] 105 U/L Normal 39-130 [facility] Comment on above: Performed By: #### P INR, 67073-3 #### [facility] ([id number]) [address] [place] [address] 84520 ALT [Catalytic activity/Vol] 45 U/L High 0-40 [facility] Comment on above: Performed By: #### P INR, 43668-6 #### [facility] ([id number]) [address] [place] [address] 71592 Anion gap [Moles/Vol] 7 mmol/L Normal 5-15 [facility] Comment on above: Performed By: #### P INR, 06217-0 #### [facility] ([id number]) [address] [place] [address] 19226 AST [Catalytic activity/Vol] 30 U/L Normal 0-41 [facility] Comment on above: Performed By: #### P INR, 32961-1 #### [facility] ([id number]) [address] [place] [address] 05791 Bilirubin [Mass/Vol] 1.1 mg/dL Normal 0.3-1.2 [facility] Comment on above: Result Comment: RESU LTS QUESTIONABLE DUE TO HEMOLYSIS Performed By: #### P INR, 20813-3 #### [facility] ([id number]) [address] [place] [address] 59404 Calcium [Mass/Vol] 8.6 mg/dL Normal 8.5-10.5 [facility] Comment on above: Performed By: #### P INR, 42189-4 #### [facility] ([id number]) [address] [place] [address] 48508 Chloride [Moles/Vol] 103 mmol/L Normal 98-109 [facility] Comment on above: Performed By: #### P INR, 75866-8 #### [facility] ([id number]) [address] [place] [address] 37884 CO2 [Moles/Vol] 26 mmol/L Normal 22-32 [facility] Comment on above: Performed By: #### P INR, 74565-0 #### [facility] ([id number]) [address] [place] [address] 91019 Creatinine [Mass/Vol] 0.78 mg/dL Normal 0.70-1.20 [facility] Comment on above: Result Comment: METH OD TRACEABLE TO IDMS STANDARD Performed By: #### P INR, 56021-5 #### [facility] ([id number]) [address] [place] [address] 81933 eGFR (CKD-EPI) NON-RACE DEPENDENT >90 Normal >59 [facility] Comment on above: Result Comment: Reported eGFR is based on the CKD-EPI 2020 equation that does not use a race coefficient. Performed By: #### P INR, 46320-3 #### [facility] ([id number]) [address] [place] [address] 83626 Glucose [Mass/Vol] 108 mg/dL High 65-99 [facility] Comment on above: Performed By: #### P INR, 94018-2 #### [facility] ([id number]) [address] [place] [address] 88902 Potassium [Moles/Vol] 4.4 mmol/L Normal 3.5-5.0 [facility] Comment on above: Result Comment: SPEC IMEN HEMOLYZED, RESULTS INCREASED Performed By: #### P INR, 08864-2 #### [facility] ([id number]) [address] [place] [address] 02109 Protein [Mass/Vol] 6.5 g/dL Normal 6.0-8.0 [facility] Comment on above: Performed By: #### P INR, 12104-5 #### [facility] ([id number]) [address] [place] [address] 43836 Sodium [Moles/Vol] 136 mmol/L Normal 134-146 [facility] Comment on above: Performed By: #### P INR, 74769-5 #### [facility] ([id number]) [address] [place] [address] 91968 Urea nitrogen [Mass/Vol] 15 mg/dL Normal 5-27 [facility] Comment on above: Performed By: #### P INR, 61748-2 #### [facility] ([id number]) [address] [place] [address] 48084 MAGNESIUMon 05-26-2024 Magnesium [Mass/Vol] 2.0 mg/dL Normal 1.8-2.6 [facility] Comment on above: Performed By: #### P INR, 47332-1 #### [facility] ([id number]) [address] [place] [address] 27387 CBC AND AUTO DIFFon 05-25-20 24 ABSOLUTE BASOPHIL 0.1 X10E9/L Normal 0.0-0.2 [facility] Comment on above: Performed By: #### C BCA, 44258-0, CMP, 73572-3, 1988-03, 45705- 0 #### [facility] ([id number]) [address] [place] [address] 90994 #### FEPR #### [facility] ([id number]) [address], [address] [place] [address] ABSOLUTE NEUTROPHIL 7.6 X10E9/L High 1.5-6.6 [facility] Comment on above: Performed By: #### C BCA, 96162-5, CMP, 40562-9, 1988-03, 03988- 0 #### [facility] ([id number]) [address] [place] [address] 21611 #### FEPR #### [facility] ([id number]) [address] [address], [address] [place] [address] Basophils/100 WBC (Bld) 0.6 % Normal [facility] Comment on above: Performed By: #### C AMARILYS, 84430-7, CMP, 09615-8, 1988-03, 65262- 0 #### [facility] ([id number]) [address] [place] [address] 19322 #### FEPR #### [facility] ([id number]) [address] [place] [address] Eosinophils (Bld) [#/Vol] 0.2 10*3/uL Normal 0.0-0.4 [facility] Comment on above: Performed By: #### C AMARILYS, 43036-1, CMP, 64427-3, 1988-03, 32923- 0 #### [facility] ([id number]) [address] [place] [address] 12162 #### FEPR #### [facility] ([id number]) [address] [place] [address] Eosinophils/100 WBC (Bld) 1.7 % Normal [facility] Comment on above: Performed By: #### C AMARILYS, 24160-2, CMP, 69830-7, 1988-03, 25008- 0 #### [facility] ([id number]) [address] [place] [address] 31326 #### FEPR #### [facility] ([id number]) [address] [place] [address] Erythrocyte distribution width (RBC) [Ratio] 16.1 % High 11.5-15.0 [facility] Comment on above: Performed By: #### C AMARILYS, 99139-3, CMP, 65402-7, 1988-03, 75843- 0 #### [facility] ([id number]) [address] [place] [address] 97806 #### FEPR #### [facility] ([id number]) [address] [place] [address] Hematocrit (Bld) [Volume fraction] 32.8 % Low 39-49 [facility] Comment on above: Performed By: #### C BCA, 88764-4, CMP, 35646-8, 1988-03, 84251- 0 #### [facility] ([id number]) [address] [place] [address] 37232 #### FEPR #### [facility] ([id number]) [address] [place] [address] Hemoglobin (Bld) [Mass/Vol] 10.7 g/dL Low 13.0-17.0 [facility] Comment on above: Performed By: #### C BCA, 24303-9, CMP, 23192-6, 1988-03, 21887- 0 #### [facility] ([id number]) [address] [place] [address] 82081 #### FEPR #### [facility] ([id number]) [address] [place] [address] Lymphocytes (Bld) [#/Vol] 1.4 10*3/uL Normal 1.0-3.5 [facility] Comment on above: Performed By: #### C BCA, 21025-6, CMP, 38337-4, 1988-03, 79409- 0 #### [facility] ([id number]) [address] [place] [address] 82599 #### FEPR #### [facility] ([id number]) [address] [place] [address] Lymphocytes/100 WBC (Bld) 14.0 % Normal [facility] Comment on above: Performed By: #### C BCA, 48274-8, CMP, 27493-6, 1988-03, 95590- 0 #### [facility] ([id number]) [address] [place] [address] 13752 #### FEPR #### [facility] ([id number]) [address] [place] [address] MCH (RBC) [Entitic mass] 27.9 pg Normal 27-34 [facility] Comment on above: Performed By: #### C AMARILYS, 16778-3, CMP, 64268-3, 1988-03, 39378 0 #### [facility] ([id number]) [address] [place] [address] 82421 #### FEPR #### [facility] ([id number]) [address], [address] [place] [address] MCHC (RBC) [Mass/Vol] 32.6 g/dL Normal 32-36 [facility] Comment on above: Performed By: #### C AMARILYS, 35578-8, CMP, 68809-9, 1988-03, 16277 0 #### [facility] ([id number]) [address] [place] [address] 61151 #### FEPR #### [facility] ([id number]) [address] [place] [address] MCV (RBC) [Entitic vol] 85 fL Normal 80-100 [facility] Comment on above: Performed By: #### C AMARILYS, 37077-4, CMP, 21187-8, 1988-03, 33713 0 #### [facility] ([id number]) [address] [place] [address] 44689 #### FEPR #### [facility] ([id number]) [address] [place] [address] Monocytes (Bld) [#/Vol] 0.7 10*3/uL Normal 0-0.9 [facility] Comment on above: Performed By: #### C BCA, 65411-4, CMP, 29825-3, 1988-03, 34231- 0 #### [facility] ([id number]) [address] [place] [address] 06144 #### FEPR #### [facility] ([id number]) [address] [place] [address] Monocytes/100 WBC (Bld) 7.0 % Normal [facility] Comment on above: Performed By: #### C BCA, 43321-6, CMP, 78938-4, 1988-03, 42420- 0 #### [facility] ([id number]) [address] [place] [address] 44982 #### FEPR #### [facility] ([id number]) [address], [address] [place] [address] Neutrophils/100 WBC (Bld) 76.7 % Normal [facility] Comment on above: Performed By: #### C BCA, 98692-8, CMP, 40796-4, 1988-03, 65581- 0 #### [facility] ([id number]) [address] [place] [address] 67441 #### FEPR #### [facility] ([id number]) [address] [place] [address] Platelet mean volume (Bld) [Entitic vol] 6.0 fL Low 7-12 [facility] Comment on above: Performed By: #### C BCA, 37126-5, CMP, 54357-9, 1988-03, 77286- 0 #### [facility] ([id number]) [address] [place] [address] 04701 #### FEPR #### [facility] ([id number]) [address] [place] [address] Platelets (Bld) [#/Vol] 325 10*3/uL Normal 150-450 [facility] Comment on above: Performed By: #### C BCA, 03682-4, CMP, 65916-9, 1988-03, 92894- 0 #### [facility] ([id number]) [address] [place] [address] 64856 #### FEPR #### [facility] ([id number]) [address] [facility], [address] [place] [address] RBC COUNT 3.84 X10E12/L Low 4.10-5.70 [facility] Comment on above: Performed By: #### C BCA, 69228-7, CMP, 64862-3, 1988-03, 60916- 0 #### [facility] ([id number]) [address] [place] [address] 22864 #### FEPR #### [facility] ([id number]) [address] [facility], [address] [place] [address] WBC (Bld) [#/Vol] 9.9 10*3/uL Normal 4.0-11.0 [facility] Comment on above: Performed By: #### C BCA, 27934-9, CMP, 26956-6, 1988-03, 99178- 0 #### [facility] ([id number]) [address] [place] [address] 26990 #### FEPR #### [facility] ([id number]) [address] [facility], [address] [place] [address] COMPREHENSIVE METABOLIC PANE John 05-25-2024 Albumin [Mass/Vol] 3.2 g/dL Normal 3.2-5.3 [facility] Comment on above: Performed By: #### C BCA, 36434-7, CMP, 79624-1, 1988-03, 18039- 0 #### [facility] ([id number]) [address] [place] [address] 52497 #### FEPR #### [facility] ([id number]) [address] [facility], [address] [place] [address] ALP [Catalytic activity/Vol] 110 U/L Normal 39-130 [facility] Comment on above: Performed By: #### C BCA, 17334-4, CMP, 35465-3, 1988-03, 86780- 0 #### [facility] ([id number]) [address] [place] [address] 38584 #### FEPR #### [facility] ([id number]) [address] [facility], [address] [place] [address] ALT [Catalytic activity/Vol] 48 U/L High 0-40 [facility] Comment on above: Performed By: #### C BCA, 60163-4, CMP, 60216-7, 1988-03, 26253- 0 #### [facility] ([id number]) [address] [place] [address] 07381 #### FEPR #### [facility] ([id number]) [address] [place] [address] Anion gap [Moles/Vol] 4 mmol/L Low 5-15 [facility] Comment on above: Performed By: #### C BCA, 24832-3, CMP, 53351-2, 1988-03, 46014- 0 #### [facility] ([id number]) [address] [place] [address] 04714 #### FEPR #### [facility] ([id number]) [address], [address] [place] [address] AST [Catalytic activity/Vol] 28 U/L Normal 0-41 [facility] Comment on above: Performed By: #### C BCA, 53063-3, CMP, 01903-5, 1988-03, 19729- 0 #### [facility] ([id number]) [address] [place] [address] 90674 #### FEPR #### [facility] ([id number]) [address] [place] [address] Bilirubin [Mass/Vol] 0.6 mg/dL Normal 0.3-1.2 [facility] Comment on above: Performed By: #### C BCA, 20058-7, CMP, 16752-1, 1988-03, 94059- 0 #### [facility] ([id number]) [address] [place] [address] 63401 #### FEPR #### [facility] ([id number]) [address] [place] [address] Calcium [Mass/Vol] 8.6 mg/dL Normal 8.5-10.5 [facility] Comment on above: Performed By: #### C BCA, 63377-7, CMP, 66372-2, 1988-03, 18775- 0 #### [facility] ([id number]) [address] [place] [address] 97811 #### FEPR #### [facility] ([id number]) [address] [place] [address] Chloride [Moles/Vol] 106 mmol/L Normal 98-109 [facility] Comment on above: Performed By: #### C BCA, 27850-9, CMP, 49169-4, 1988-03, 81045- 0 #### [facility] ([id number]) [address] [place] [address] #### FEPR #### [facility] ([id number]) [address], [address] [place] [address] CO2 [Moles/Vol] 26 mmol/L Normal 22-32 [facility] Comment on above: Performed By: #### C BCA, 56876-9, CMP, 09738-9, 1988-03, 89459- 0 #### [facility] ([id number]) [address] [place] [address] #### FEPR #### [facility] ([id number]) [address], [address] [place] [address] Creatinine [Mass/Vol] 0.96 mg/dL Normal 0.70-1.20 [facility] Comment on above: Result Comment: METH OD TRACEABLE TO IDMS STANDARD Performed By: #### C BCA, 81265-7, CMP, 06496-9, 1988-03, 99145-9 #### [facility] ([id number]) [address] [place] [address] #### FEPR #### [facility] ([id number]) [address], [address] [place] [address] GFR/1.73 sq M.predicted among non-blacks MDRD (S/P/Bld) [Vol rate/Area] 84 mL/min/{1.73_m2} Normal >59 [facility] Comment on above: Result Comment: Reported eGFR is based on the CKD-EPI 2020 equation that does not use a race coefficient. Performed By: #### C BCA, 77302-1, CMP, 75682-1, 1988-03, 28357-2 #### [facility] ([id number]) [address] [place] [address] #### FEPR #### [facility] ([id number]) [address], [address] [place] [address] Glucose [Mass/Vol] 118 mg/dL High 65-99 [facility] Comment on above: Performed By: #### C BCA, 72334-5, CMP, 84358-7, 1988-03, 03745- 0 #### [facility] ([id number]) [address] [place] [address] #### FEPR #### [facility] ([id number]) [address], [address] [place] [address] Potassium [Moles/Vol] 4.1 mmol/L Normal 3.5-5.0 [facility] Comment on above: Performed By: #### C BCA, 38941-1, CMP, 85863-2, 1988-03, 14462- 0 #### [facility] ([id number]) [address] [place] [address] #### FEPR #### [facility] ([id number]) [address], [address] [place] [address] Protein [Mass/Vol] 7.0 g/dL Normal 6.0-8.0 [facility] Comment on above: Performed By: #### C BCA, 54815-0, CMP, 85176-3, 1988-03, 89823 0 #### [facility] ([id number]) [address] [place] [address] #### FEPR #### [facility] ([id number]) [address] [place] [address] Sodium [Moles/Vol] 136 mmol/L Normal 134-146 [facility] Comment on above: Performed By: #### C BCA, 78799-6, CMP, 38004-0, 1988-03, 52371- 0 #### [facility] ([id number]) [address] [place] [address] #### FEPR #### [facility] ([id number]) [address] [place] [address] Urea nitrogen [Mass/Vol] 17 mg/dL Normal 5-27 [facility] Comment on above: Performed By: #### C BCA, 83629-2, CMP, 93599-4, 1988-03, 94131- 0 #### [facility] ([id number]) [address] [place] [address] #### FEPR #### [facility] ([id number]) [address], [address] [place] [address] CRP [Mass/Vol]on 05-25-2024 C REACTIVE PROTEIN 6.2 mg/dL High 0.000-0.744 [facility] Comment on above: Performed By: #### C BCA, 22769-8, CMP, 48054-2, 1988-03, 12697- 0 #### [facility] ([id number]) [address] [place] [address] #### FEPR #### [facility] ([id number]) [address], [address] [place] [address] CT CTA CHESTon 05-25-[address] CT[address] CHEST CT CTA CHEST CLINICAL INFORMATION: 74 years old Male with right lower leg swelling and pain after knee replacement 2 weeks ago. Hyperlipidemia. Hypertension. Pulmonary embolism suspected. COMPARISON: None. TECHNIQUE: 100 mL of Omnipaque 350 nonionic contrast injected intravenously without reported complication. Thin section axial images of the thorax obtained with multiplanar reformatted 3-D MIP images of the thorax generated under concurrent physician supervision and reviewed. Automatic exposure control (AEC) was utilized. All CT scans at this facility use dose modulation, iterative reconstruction, and/or weight based dosing when appropriate to reduce radiation dose to as low as reasonably achievable. FINDINGS: Diagnostic quality: Satisfactory Lower neck: Unremarkable. Mediastinum: Unremarkable. Central airways: Patent. Lung: No pneumothorax or pleural effusion. No focal airspace opacity. Multiple scattered micronodules that do not meet Fleischner criteria for dedicated follow-up imaging. Pulmonary artery: No discrete pulmonary embolism. Evaluation of of the subsegmental pulmonary arteries is compromised from contrast bolus timing. Aorta: Unremarkable. Three-vessel aortic arch. Cardiac: Unremarkable. Chest wall: Unremarkable. Osseous: Degenerative changes of the visualized cervical and thoracic spines. Healed rib fracture of posterior right rib 8. Upper abdomen: Cholelithiasis without evidence of acute cholecystitis. Fatty infiltration of the pancreas noted. IMPRESSION: * No discrete pulmonary embolism. * Cholelithiasis without evidence of acute cholecystitis. Approved by Resident Jose Miguel Rose DO on 05/25/2024 8:27 PM I, Jonathon Mccrary MD have personally reviewed the image(s) and agree with and/or edited the report Finalized by Jonathon Mccrary MD on 05/25/2024 8:46 PM Normal [facility] Fibrin D-dimer DDU (PPP) [Ma ss/Vol]on 05-25-2024 D DIMER 3483 ng/mL DDU High <255 [facility] Comment on above: Result Comment: Results >=255ng/mL DDU: Results may be indicative of the presence of VTE. The use of the Wells score and further diagnostic tests should be considered. Elevated D-Dimer levels can also be associated with DIC, neoplasm, , trauma and liver disease. Elevated levels of rheumatoid factor may lead to an overestimation of the D-Dimer level. Performed By: #### C BCA, 49054-6, CMP, 02687-0, 1988-5, 77779-4 #### [facility] ([id number]) [address] [place] [address] #### FEPR #### [facility] ([id number]) [address] [address], [address] [place] [address] IRON PROFILEon 05-25-2024 Iron [Mass/Vol] 34 ug/dL Low 50-212 [facility] Comment on above: Performed By: #### P INR, 11372-4 #### [facility] ([id number]) [address] [place] [address] IRON BINDING 258 ug/dL Normal 250-425 [facility] Comment on above: Performed By: #### P INR, 97147-4 #### [facility] ([id number]) [address] [place] [address] IRON SATURATION 13 % SATURATION Low 20-50 [facility] Comment on above: Performed By: #### P INR, 87986-7 #### [facility] ([id number]) [address] [place] [address] Natriuretic peptide B [Mass/ Vol]on 05-25-2024 Natriuretic peptide B (Bld) [Mass/Vol] 13 pg/mL Normal <100.0 [facility] Comment on above: Performed By: #### C BCA, 78452-3, CMP, 65311-2, 1988-5, 86466- 0 #### [facility] ([id number]) [address] [place] [address] #### FEPR #### [facility] ([id number]) [address] [place] [address], [address] [place] [address] Procalcitonin IA [Mass/Vol]o n 05-25-2024 PROCALCITONIN 0.07 ng/mL High <0.05 [facility] Comment on above: Result Comment: NOTE <0.50 ng/mL - Low risk of severe sepsis and/or septic shock. <2.00 ng/mL - Recommend retesting within 6-24 hours. >2.00 ng/mL - High risk of sepsis and/or septic shock. Performed By: #### P INR, 55681-6 #### [facility] ([id number]) [address] [place] [address] URINALYSISon 05-25-2024 Bilirubin Ql (U) Negative Normal NEG [facility] Comment on above: Performed By: #### P INR, 72478-0 #### [facility] ([id number]) [address] [place] [address] BLOOD/HGB Trace Abnormal NEG [facility] Comment on above: Performed By: #### P INR, 60194-4 #### [facility] ([id number]) [address] [place] [address] Color (U) YELLOW Normal YELLOW [facility] Comment on above: Performed By: #### P INR, 73418-0 #### [facility] ([id number]) [address] [place] [address] Glucose Ql (U) Negative Normal NEG [facility] Comment on above: Performed By: #### P INR, 18161-4 #### [facility] ([id number]) [address] [place] [address] [place] [address] Hyaline casts LM Ql (Urine sed) 0 to 2 Normal 0-2 [facility] Comment on above: Performed By: #### P INR, 02682-7 #### [facility] ([id number]) [address] [place] [address] Ketones Ql (U) Negative Normal NEG [facility] Comment on above: Performed By: #### P INR, 14082-4 #### [facility] ([id number]) [address] [place] [address] [place] [address] Leukocyte esterase Test strip Ql (U) Negative Normal NEG [facility] Comment on above: Performed By: #### P INR, 79747-5 #### [facility] ([id number]) [address] [place] [address] [place] [address] MUCOUS PRESENT Abnormal NONE [facility] Comment on above: Performed By: #### P INR, 83975-8 #### [facility] ([id number]) [address] [place] [address] [place] [address] Nitrite Ql (U) Negative Normal NEG [facility] Comment on above: Performed By: #### P INR, 70420-3 #### [facility] ([id number]) [address] [place] [address] pH (U) 6.0 [pH] Normal 5.0-8.5 [facility] Comment on above: Performed By: #### P INR, 18812-5 #### [facility] ([id number]) [address] [place] [address] Protein Ql (U) Negative Normal NEG [facility] Comment on above: Performed By: #### P INR, 47279-1 #### [facility] ([id number]) [address] [place] [address] [place] [address] R.B.CELLS 2 to 5 Normal 0-5 [facility] Comment on above: Performed By: #### P INR, 22942-7 #### [facility] ([id number]) [address] [place] [address] Specific gravity (U) [Rel density] >1.030 Normal 1.003-1.035 [facility] Comment on above: Performed By: #### P INR, 13575-5 #### [facility] ([id number]) [address] [place] [address] TURBIDITY CLEAR Normal CLEAR [facility] Comment on above: Performed By: #### P INR, 24747-1 #### [facility] ([id number]) [address] [place] [address] Urobilinogen Qn (U) 0.2 {Christi'U}/dL Normal <1.1 [facility] Comment on above: Performed By: #### P INR, 36112-8 #### [facility] ([id number]) [address] [place] [address] W.B.CELLS 0 to 2 Normal 0-5 [facility] Comment on above: Performed By: #### P INR, 76120-1 #### [facility] ([id number]) [address] [place] [address] URINE CULTUREon 05-25-2024 Bacteria identified Cx Nom (U) CULTURE RESULTS NO GROWTH AT <1000 CFU/mL Normal [facility] Comment on above: Performed By: #### P INR, 65055-3 #### [facility] ([id number]) [address] [place] [address], [place] [address] URN MACROSCOPIC NURon 2023 BILIRUBIN ANIBAL Negative Normal NEG [facility] Comment on above: Performed By: #### P INR, 97541-2 #### [facility] ([id number]) [address] [place] [address], [place] [address] BLOOD/HGB ANIBAL Trace Abnormal NEG [facility] Comment on above: Performed By: #### P INR, 94559-9 #### [facility] ([id number]) [address] [place] [address], [place] [address] GLUCOSE ANIBAL Negative Normal NEG [facility] Comment on above: Performed By: #### P INR, 71004-6 #### [facility] ([id number]) [address] [place] [address], [place] [address] KETONES ANIBAL Negative Normal NEG [facility] Comment on above: Performed By: #### P INR, 40834-1 #### [facility] ([id number]) [address] [place] [address], [place] [address] LEUKOCYTE ESTERASE ANIBAL Negative Normal NEG [facility] Comment on above: Performed By: #### P INR, 19498-1 #### [facility] ([id number]) [address] [place] [address], [place] [address] NITRITE ANIBAL Negative Normal NEG [facility] Comment on above: Performed By: #### P INR, 10933-9 #### [facility] ([id number]) [address] [place] [address], [place] [address] PH ANIBAL 5.5 Normal 5.0-8.5 [facility] Comment on above: Performed By: #### P INR, 53227-4 #### [facility] ([id number]) [address] [place] [address] PROTEIN ANIBAL Negative Normal NEG [facility] Comment on above: Performed By: #### P INR, 48054-5 #### [facility] ([id number]) [address] [place] [address] SPECIFIC GRAVITY ANIBAL >=1.030 Normal 1.003-1.035 [facility] Comment on above: Performed By: #### P INR, 97161-9 #### [facility] ([id number]) [address] [place] [address] UROBILINOGEN ANIBAL 0.2 eu/dL Normal <1.1 [facility] Comment on above: Performed By: #### P INR, 18169-1 #### [facility] ([id number]) [address] [place] [address] XR TIBIA FIBULA RT MIN 2 VWS on 05-25-2024 XR TIBIA FIBULA RT MIN 2 VWS XR TIBIA FIBULA RT MIN 2 VWS History: Right lower extremity pain and swelling after knee replacement 2 weeks ago. Exam/Technique: AP and lateral views of the right lower leg Comparison: 03/12/2024 Findings: Compared to study there is been knee hardware revision. No evidence of periprosthetic fracture complication on visualized portions. No gas collections. Generalized soft tissue swelling and edema. IMPRESSION: * Soft tissue swelling and edema without obvious gas collection or acute prosthetic complication. Finalized by Royce Peterson DO on 05/25/2024 8:40 PM [facility] 36on 05-24-2024 36 SPOKE WITH PATIENT SCHEDULE HIM TO COME IN TODAY TO SEE A RESIDENT SUPERVISORY FORESTER. [facility] 36 Patient feels like jose white is developing cellulitis, wanting to be seen today, please give a call back with further instruction. Thank you [facility] Office Visiton 05-24-2024 Follow-up visit [id number] Royce Delaney 1950 Date Provider Department Center 05/24/2024 [facility] MP ORTHO MPOHO No family history on file Level of Service:81934 [place] POSTOP FOLLOW UP VISIT RELATED TO ORIGINAL PX Reason for Visit and Comments: Post-op [483] Edema [[id number]] [facility] 3605-17-2024 36 I spoke with the patient to see how he is doing after his recent surgery. Mr Ugo stated he is doing well and his pain is manageable with medication. He is taking everything he was prescribed at discharge. He does state that he has some frustration with [facility] not being out to see him yet. I stated that per the note today they needed information from Dr Chappell. KENAN Hilton has sent this to them. I informed patient if he does not hear from [facility] today to let me know tomorrow. I provided him with my contact information. He denies any redness, drainage or major swelling. He has a post op appointment on May 31 at 1030. He had no questions or concerns. Addendum: I have asked RAD Lambert to assist with getting [facility] set up for patient. [facility] 36 Orders FAXED [facility] 36 Pino ramirez [phone] Fax: [phone] States it is urgent that the PT orders that was faxed to [facility] be signed and faxed back flor This is important for the insurance authorization [facility] Telephoneon 05-17-2024 Telephone [id number] Royce Delaney 1950 [facility] Provider Department Center 05/17/2024 CHIRAG STEINBERG MP ORTHO LENAHO No family history on file [facility] 3605-14-2024 36 karenmagali nubia will be faxing over a paper for dr chappell to sign for his home health care, states his insurance co requires a certain form/way for it to be written before they will accept it. States his first visit is today. FYI. [facility] Telephoneon 05-14-2024 Telephone [phone] Royce Delaney 1950 M Date Provider Department Center 05/14/2024 [facility] ORTHO MPORTHO No family history on file Reason for Visit and Comments: home health care [Other] Normal [facility] BASIC METABOLIC PANELon 06-2 Anion gap [Moles/Vol] 12 mmol/L Normal 7-20 [facility] Comment on above: Performed By: #### L AB15 #### [facility] ([facility]) [address] [place] [address] Calcium [Mass/Vol] 8.4 mg/dL Low 8.6-10.3 [facility] Comment on above: Performed By: #### L AB15 #### [facility] ([facility]) [address] [place] [address] Chloride [Moles/Vol] 106 mmol/L Normal 98-107 [facility] Comment on above: Performed By: #### L AB15 #### [facility] ([facility]) [address] [place] [address] CO2 [Moles/Vol] 24 mmol/L Normal 21-31 [facility] Comment on above: Performed By: #### L AB15 #### [facility] ([facility]) [address] [place] [address] Creatinine [Mass/Vol] 0.82 mg/dL Normal 0.70-1.30 [facility] Comment on above: Performed By: #### L AB15 #### [facility] ([facility]) [address] [place] [address] GLOMERULAR FILTRATION RATE ML/MIN/1.73 SQ M.PREDICTED 93.3 mL/min/1.73m*2 Normal >60.0 [facility] Comment on above: Result Comment: [facility]???s estimated glomerular filtration rate (eGFR) will no longer include consideration of race in its calculation. The National Kidney Foundation???s eGFR Task Force developed new recommendations for the estimation of the glomerular filtration rate in the [place] They recommend immediate implementation of the new equation refit without the race variable in all laboratories because the calculation does not include race. In addition to not including race in the calculation and reporting, it included diversity in its development, and has acceptable performance characteristics and potential consequences that do not disproportionately affect any one group of individuals. Performed By: #### L AB15 #### [facility] ([facility]) [address] [place] [address] Glucose [Mass/Vol] 130 mg/dL High 70-100 [facility] Comment on above: Performed By: #### L AB15 #### [facility] ([facility]) [address] [place] [address] Potassium [Moles/Vol] 4.1 mmol/L Normal 3.5-5.1 [facility] Comment on above: Performed By: #### L AB15 #### [facility] ([facility]) [address] [place] [address] Sodium [Moles/Vol] 138 mmol/L Normal 136-145 [facility] Comment on above: Performed By: #### L AB15 #### [facility] ([facility]) [address] [place] [address] Urea nitrogen [Mass/Vol] 18 mg/dL Normal 7-25 [facility] Comment on above: Performed By: #### L AB15 #### [facility] ([facility]) [address] [place] [address] UREA NITROGEN/CREATININE (MASS RATIO) IN SER/PLAS 22.0 Normal [facility] Comment on above: Performed By: #### L AB15 #### [facility] ([facility]) [address] [place] [address] CBCon 05-13-2024 Erythrocyte distribution width (RBC) [Ratio] 15.8 % High 11.5-15.0 [facility] Comment on above: Performed By: #### L AB294 #### [facility] ([facility]) [address] [place] [address] ERYTHROCYTE MEAN CORPUSCULAR HEMOGLOBIN CONCENTRATION (G/DL) BY AUTOMATED 31.8 g/dL Low 32.0-35.0 [facility] Comment on above: Performed By: #### L AB294 #### [facility] ([facility]) [address] [place] [address] Hematocrit (Bld) [Volume fraction] 36.2 % Low 39.0-55.0 [facility] Comment on above: Performed By: #### L AB294 #### [facility] ([facility]) [address] [place] [address] Hemoglobin (Bld) [Mass/Vol] 11.5 g/dL Low 13.0-17.0 [facility] Comment on above: Performed By: #### L AB294 #### [facility] ([facility]) [address] [place] [address] MCH (RBC) [Entitic mass] 27.8 pg Normal 27.0-33.0 [facility] Comment on above: Performed By: #### L AB294 #### [facility] ([facility]) [address] [place] [address] MCV (RBC) [Entitic vol] 87.4 fL Normal 82.0-98.0 [facility] Comment on above: Performed By: #### L AB294 #### [facility] ([facility]) [address] [place] [address] PLATELETS (10*3/UL) IN BLOOD AUTOMATED COUNT 219 10*3/uL Normal 150-400 [facility] Comment on above: Performed By: #### L AB294 #### [facility] ([facility]) [address] [place] [address] RBC (Bld) [#/Vol] 4.14 10*6/uL Low 4.20-5.70 [facility] Comment on above: Performed By: #### L AB294 #### [facility] ([facility]) [address] [place] [address] WBC (Bld) [#/Vol] 13.23 10*3/uL High 4.00-10.60 [facility] Comment on above: Performed By: #### L AB294 #### 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 Patient was admitted for postoperative pain control as well as further evaluation and treatment prior to discharge to home with home care. Patient had his right revision knee arthroplasty on 12 May 2024. Discharge Diagnosis Mechanical loosening of internal right knee prosthetic joint (CMS/[facility]) s/p right revision total knee arthroplasty using [employer] implants. Discharge Disposition Home-Health Care [facility] () Discharge Medications Your medication list START taking these medications Instructions Last Dose Given Next Dose Due aspirin 325 mg tablet Replaces: aspirin 81 mg EC tablet Take 1 tablet (325 mg) by mouth in the morning and at bedtime. cephalexin 500 mg capsule Commonly known as: Keflex Take 1 capsule (500 mg) by mouth in the morning, at noon, in the evening, and at bedtime for 5 days. cholecalciferol 25 MCG (1000 units) tablet Commonly known as: Vitamin D-3 Take 2 tablets (2,000 Units) by mouth in the morning. oxyCODONE-acetaminophen 5-325 mg tablet Commonly known as: Percocet Take 1 tablet by mouth every 6 (six) hours if needed for severe pain (8-10 pain score) for up to 5 days. CONTINUE taking these medications Instructions Last Dose Given Next Dose Due atorvastatin 10 mg tablet Commonly known as: Lipitor ferrous sulfate 325 (65 Fe) MG tablet furosemide 40 mg tablet Commonly known as: Lasix omeprazole [address] capsule Commonly known as: PriLOSEC pramipexole 1.5 mg tablet Commonly known as: Mirapex STOP taking these medications aspirin 81 mg EC tablet Replaced by: aspirin 325 mg tablet Where to Get Your Medications These medications were sent to [facility] - [place], [place] - [address] [place] [address], [facility] [address] aspirin 325 mg tablet cephalexin 500 mg capsule cholecalciferol 25 MCG (1000 units) tablet oxyCODONE-acetaminophen 5-325 mg tablet Activity No driving while taking opioid pain medications, until cleared in clinic Showering instructions: May shower as long as the dressing is kept completely clean and dry. Do not remove splint or underlying dressing until seen in clinic for suture removal. Diet Continue on the same type of diet and foods as you were eating before your admission. Drink plenty of water. Allergies Patient has no known allergies. Hospital Course Admitted postoperatively following right total knee arthroplasty for physical therapy and Occupational Therapy consults. Patient also had 2 consults for his other medical problems. Patient had good control of his pain. He had nutritional consult as well for weight loss program and strengthening. Pertinent Physical Exam At Time of Discharge Physical Exam Right revision knee arthroplasty: Incision healthy, no signs of infection or infection seen, patient has full active extension with flexion to about 90 degrees range of motion well-maintained, no tenderness, no signs of deep system. Patient has good active plantarflexion dorsiflexion of the ankle. Residual pitting edema noted from his rectum fluid. No signs of thrombosis seen. No major redness seen. Mild hematoma seen. Denies of any weakness in the lower extremity. Distal neurovascular status intact. Distal pulses intact. Cap refill less than 2 seconds. Lab Results Labs Reviewed MRSA/MSSA DNA NASAL - Abnormal Result Value MSSA DNA Positive (*) MRSA DNA Negative Narrative: Testing methodology is an automated qualitative in vitro diagnostic test for the direct detection and differentiation of Staphylococcus aureus (SA) DNA and methicillin-resistant Staphylococcus aureus (MRSA) DNA from nasal swabs in patients at risk for nasal colonization. The test utilizes real-time polymerase chain reaction (PCR) for the amplification of MRSA/SA DNA and fluorogenic target-specific hybridization probes for the detection of the amplified DNA. A negative result does not preclude nasal colonization. BASIC METABOLIC PANEL - Abnormal Sodium 138 Potassium 4.1 Chloride 106 CO2 24 BUN 18 Creatinine 0.82 Glucose 130 (*) Calcium 8.4 (*) Anion Gap 12 eGFR 93.3 BUN/Creatinine Ratio 22.0 CBC - Abnormal Auto WBC 13.23 (*) RBC 4.14 (*) Hemoglobin 11.5 (*) Hematocrit 36.2 (*) MCV 87.4 MCH 27.8 MCHC 31.8 (*) RDW 15.8 (*) Platelets 219 POCT GLUCOSE METER UNSOLICITED RESULTS - Normal Glucose POC 99 Narrative: Waived Testing in the ED is performed under the ED CLIA certificate #[id number]. BODY FLUID CULTURE AND ANAEROBIC CULTURE Narrative: The following orders were created for panel order Body fluid culture and anaerobic culture. Procedure Abnormality Status --------- ------ Body fluid culture[[id number]] (more content not included)... 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, initial encounter ([facility]) [T84.032A]Differential performed on cytospin Performed By: #### L [id number] ####[facility] (BEAKER)[address] [place] [address] CELLS COUNTED TOTAL (#) IN BODY FLUID 100 Normal [facility] Comment on above: Order Comment: 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, initial encounter ([facility]) [T84.032A]Differential performed on cytospin Performed By: #### L [id number] ####[facility] (BEAKER)[address] [place] [address] EOSINOPHILS TOTAL PER COUNTED LEUKOCYTES IN BODY FLUID BY MANUAL COUNT [facility] Comment on above: Order Comment: 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, initial encounter ([facility]) [T84.032A]Differential performed on cytospin Performed By: #### L [id number] ####[facility] (BEAKER)[address] [place] [address] LYMPHOCYTES TOTAL PER COUNTED LEUKOCYTES IN BODY FLUID BY MANUAL COUNT 24 Normal [facility] Comment on above: Order Comment: 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, initial encounter ([facility]) [T84.032A]Differential performed on cytospin Performed By: #### L [id number] ####[facility] (BEAKER)[address] [place] [address] MESOTHELIAL CELLS TOTAL PER COUNTED LEUKOCYTES IN BODY FLUID BY MANUAL COUN Normal [facility] Comment on above: Order Comment: 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, initial encounter ([facility]) [T84.032A]Differential performed on cytospin Performed By: #### L [id number] ####[facility] (BEAKER)[address] [place] [address] MONOCYTES+MACROPHAG ES TOTAL PER COUNTED LEUKOCYTES IN BODY FLUID BY MANUAL 58 Normal [facility] Comment on above: Order Comment: 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, initial encounter ([facility]) [T84.032A]Differential performed on cytospin Performed By: #### L [id number] ####[facility] (BEAKER)[address] [place] [address] NEUTROPHILS TOTAL PER COUNTED LEUKOCYTES IN BODY FLUID BY MANUAL COUNT 18 [facility] Comment on above: Order Comment: 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, initial encounter ([facility]) [T84.032A]Differential performed on cytospin Performed By: #### L [id number] ####[facility] (BEAKER)[address] [place] [facility] [place] [address] OTHER CELLS BODY FLUID (MANUAL) [facility] Comment on above: Order Comment: 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, initial encounter ([facility]) [T84.032A]Differential performed on cytospin Performed By: #### L [id number] ####[facility] (BEAKER)[address] [place] [address] BODY FLUID CULTUREon 024 Bacteria identified Cx Nom (Unsp spec) No growth at 5 days Normal [facility] Comment on above: Order Comment: 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, initial encounter ([facility]) [T84.032A] Performed By: #### L [id number] ####[facility] (BEAKER)[address] [place] [address] GRAM STAIN RESULT Normal 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 Knee. 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 Station Helper sections are submitted for frozen section, FS1. The cut surfaces are generally uniform. Additional sections are submitted in 2 and 3. Kathi Davis Pathologists' Cost Reduction Engineer B. Femur. Received fresh for frozen section labeled Royce Delaney, #2 RT Femur tissue are pale malney to pink-red rubbery, dull and shaggy soft tissue fragments, 3.3 x 2 x 1.8 cm with minute focal bony fragments up to 0.3 cm. Station Helper portions of soft tissue are submitted for frozen section, FS1. Additional sections of soft tissue are submitted in 2 and the bony fragments are submitted in 3 after decalcification. Anna Cramer' Cost Reduction Engineer C. Patella. Received fresh for frozen section labeled Royce Delaney, #4;patella tissue is feliz pink shaggy rubbery soft tissue 4.2 x 3.5 x 1.8 cm. Station Helper sections are submitted for frozen section, FS1. Additional sections are submitted in 2 and 3. Anna Cramer' Cost Reduction Engineer D. Tibia. Received fresh for frozen section labeled Royce Delaney, #5 Rt Tibia are fragments of dull manley soft and pink-feliz rubbery tissue, 1.5 x 2 x 0.8 cm, with intermixed bony fragments. Station Helper soft tissue is submitted for frozen section, FS1. The remainder of the soft tissue is submitted in 2 and the bony fragments are entirely submitted in 3 after decalcification. Anna Cramer' Cost Reduction Engineer E. Knee. Received fresh for frozen section labeled Royce Delaney, #3; RT knee posterior capsule is a portion of feliz pink rubbery tissue 3.8 x 1.2 x 1 cm. The cut surfaces are uniform. Station Helper sections are submitted for frozen, FS1. The remainder is submitted in 2 and 3. Anna Cramer' Cost Reduction Engineer F. Tibia. Received in formalin labeled Royce Delaney, Rt Tibia micro are ragged fragments of feliz bone and pale manley to dark blue-manley rubbery and shaggy soft tissue. Station Helper sections of the soft tissue are submitted in cassettes 1-2 with bony fragments in 3 after decalcification. Kathi Davis, Pathologists' Cost Reduction Engineer Performed By: #### L [id number] ####[facility] (BEAKER)[address] [place] [address] LAB AP INTRAOPERATIVE CONSULTATION A. Knee. 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 Soft tissue, right knee synovium, biopsy: - No increase in neutrophils (0-1 neutrophils per HPF). - One frozen section completed. Intraoperative Consultation by: Aixa Hunter MD B. Femur. Resulted 1:25 PM 05/12/24 B. Soft tissue, right femur, biopsy: - No increase in neutrophils (0-1 neutrophils per HPF). - One frozen section completed. Intraoperative Consultation by: Aixa Hunter MD C. Patella. Resulted 1:25 PM 05/12/24 C. Soft tissue, patella, biopsy: - No increase in neutrophils (0-1 neutrophils per HPF). - One frozen section completed. Intraoperative Consultation by: Aixa Hunter MD D. Tibia. Resulted 1:26 PM 05/12/24 D. Soft tissue, right tibia, biopsy: - No increase in neutrophils (0-1 neutrophils per HPF). - One frozen section completed. Intraoperative Consultation by: Aixa Hunter MD E. Knee. Resulted 1:26 PM 05/12/24 E. Soft tissue, right knee posterior capsule, biopsy: - No increase in neutrophils (0-1 neutrophils per HPF). - One frozen section completed. Intraoperative Consultation by: Aixa Hunter MD Performed By: #### L [id number] ####[facility] (BEAKER)[address] [place] [address] LAB AP MICROSCOPIC DESCRIPTION Microscopic examination performed. 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 S oft tissue, right knee synovium, biopsy: - Benign fibrovascular tissue. - No increase in neutrophils identified (0-1 neutrophils per high-power field). B. Soft tissue, right femur, biopsy: - Benign fibrovascular tissue. - No increase in neutrophils identified (0-1 neutrophils per high-power field).- C. Soft tissue, patella, biopsy: - Benign fibrovascular tissue. - No increase in neutrophils identified (0-1 neutrophils per high-power field). D. Soft tissue and bone, right tibia, biopsy: - Benign fibrovascular and osteocartilaginous tissue. - No increase in neutrophils identified (0-1 neutrophils per high-power field). E. Soft tissue, right knee posterior capsule, biopsy: - Benign fibrovascular tissue. - No increase in neutrophils identified (0-1 neutrophils per high-power field). F. Soft tissue and bone, right tibia, biopsy: - Benign fibrovascular and osteocartilaginous tissue. - No increase in neutrophils identified (0-1 neutrophils per high-power field). Performed By: #### L [id number] ####[facility] (BEAKER)[address] [place] [address] HPon 05-12-2024 HP H&P reviewed. The patient was examined and there are no changes to the H&P. Normal [facility] MRSA/MSSA DNA NASALon 2023 MRSA DNA Negative Normal Negative [facility] Comment on above: Order Comment: Testi ng methodology is an automated qualitative in vitro diagnostic test for the direct detection and differentiation of Staphylococcus aureus (SA) DNA and methicillin-resistant Staphylococcus aureus (MRSA) DNA from nasal swabs in patients at risk for nasal colonization. The test utilizes real-time polymerase chain reaction (PCR) for the amplification of MRSA/SA DNA and fluorogenic target-specific hybridization probes for the detection of the amplified DNA. A negative result does not preclude nasal colonization. Performed By: #### L [id number] #### [facility] (BEAKER) [address] [place] [address] MSSA DNA Positive Abnormal Negative [facility] Comment on above: Order Comment: Testi ng methodology is an automated qualitative in vitro diagnostic test for the direct detection and differentiation of Staphylococcus aureus (SA) DNA and methicillin-resistant Staphylococcus aureus (MRSA) DNA from nasal swabs in patients at risk for nasal colonization. The test utilizes real-time polymerase chain reaction (PCR) for the amplification of MRSA/SA DNA and fluorogenic target-specific hybridization probes for the detection of the amplified DNA. A negative result does not preclude nasal colonization. Performed By: #### L [id number] #### [facility] (BEAKER) [address] [place] [address] NURSNOTEon 05-12-2024 PORFIRIO Called son and told him the room assignment Normal [facility] NURSNOTE Xray at bedside Normal [facility] PORFIRIO Aris Ohara, took prescriptions home [facility] OPNOTEon 05-12-2024 OPNOTE REVISION, TOTAL ARTHROPLASTY, KNEE,STAGE 2, EXCEPT PATELLA WITH INTRAOP FROZEN SECTIONS (R) Operative Note Date: 05/12/2024 Location: 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 Superficial and deep layers closure for revision knee arthroplasty right knee joint. Intraoperative frozen sections and specimen sent for culture sensory as well as microbiology. [place] INJECTION AA&/STRD FEMORAL NERVE W/IMG GDN [[id number]] Hardware used: [employer] revision tibial baseplate right side size 5. [employer] RK/HK Gerson stepped left medial/right lateral, tibial wedge augment 5 mm, size 5-6 [employer] RK/HK him he stepped, left lateral/right medial, tibial wedge augment 5 mm, size 5-6. [employer] Legion [address] pilot [employer] tibial cone size long. [employer] constrained Oxinium femoral component measuring size 7 right side. [employer] Legion [address] pilot [employer] distal femoral wedge screw on, 10 mm by size 7. Distal lateral augment. [employer] distal femoral wedge screw on, 5 mm x 7, distal medial augment. [employer] Legion straight 20 x 160 mm, Legion press-fit stem for femur [employer] straight 15 x 160 mm Legion press-fit stem for tibia. [employer] Harriett II constrained articular insert, size 5-6 x 15 mm. Biomet Palacos cement 2 batches. Surgeons * Gretel Chappell - Primary Assistants: Dwayne Sparrow MD resident orthopedic surgery Lyle Stockton medical student year 3 Naresh jones assist Anesthesiologist: Dr. Gordy BOLANOS Procedure Summary Anesthesia: General ASA: III Total tourniquet time 130 minutes. 0.5% Marcaine and 2% lidocaine injected around the periarticular site. Total of 60 ml injected. Estimated Blood Loss: 50 mL Total IV Fluids: Please see anesthesia chart. mL Drains: * None in log * Specimens ID Source Type Tests Collected By Collected At Frozen? Priority Lab ID 1 Knee Fluid BODY FLUID CELL COUNT WITH DIFFERENTIAL BODY FLUID CULTURE AND ANAEROBIC CULTURE Gretel Chappell MD 05/12/24 1146 Routine [id number], [id number], [id number] Description: rt knee fluid 2 Bone Marrow Aspirate Bone Marrow AFB CULTURE, BLOOD Gretel Chappell MD 05/12/24 1453 [id number] Description: Bone Marrow A Knee Synovium HISTOLOGY - TISSUE EXAM Gretel Chappell MD 05/12/24 1150 Yes Routine [id number] Description: rt knee synovium Comment: # of neutrophils per high powered field B Femur Tissue HISTOLOGY - TISSUE EXAM Gretel Chappell MD 05/12/24 1203 Yes [id number] Description: #2 RT Femur tissue C Patella Tissue HISTOLOGY - TISSUE EXAM Gretel Chappell MD 05/12/24 1216 Yes [id number] Description: #4;patella tissue D Tibia Tissue HISTOLOGY - TISSUE EXAM Gretel Chappell MD 05/12/24 1218 Yes [id number] Description: #5 Rt Tibia E Knee Tissue HISTOLOGY - TISSUE EXAM Gretel Chappell MD 05/12/24 1221 Yes [id number] Description: #3; RT knee posterior capsule F Tibia Tissue HISTOLOGY - TISSUE EXAM Gretel Chappell MD 05/12/24 1223 No [id number] Description: Rt Tibia micro G Bone Marrow Aspirate Bone Marrow BONE MARROW EXAM Gretel Chappell MD 05/12/24 1224 Description: Bone Marrow Implants Type Name Action Serial No. Bone Cement CEMENT,BONE,R,[id number] - [id number] - [id number] Implanted [id number] TIBIAL BASEPLATE Implanted TIBIAL WEDGE Implanted TIBIAL WEDGE Implanted OFFSET INK JET OPERATOR Implanted TIBIAL CONE Implanted PRESSFIT STEM Implanted FEMORAL COMPONENT Implanted OFFSET INK JET OPERATOR Implanted FEMORAL WEDGE Implanted FEMORAL WEDGE Implanted PRESSFIT STEM Implanted ARTICULAR INSERT Implanted Staff: Concrete Fence Builder: Lashae Lopez RN Relief Concrete Fence Builder: Russell Alejandro RN Relief Scrub: Timothy Griffiths CSA; Alton Tian CST Scrub Person: Dorina Myrick CST Sieve Repairer: Wilfredo Mendez CSA Indications: Royce Delaney is an 74 y.o. male who is having surgery for Mechanical loosening of internal ri (more content not included)... Normal [facility] PATHOLOGY REVIEWon 4 PATHOLOGY REVIEW Reviewed. Normal [facility] Comment on above: Order Comment: 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, initial encounter ([facility]) [T84.032A] Result Comment: Elec tronically signed by Ramon Lancaster MD on 05/13/24 at 9:21 AM. Performed By: #### L [id number] ####[facility] (BEAKER)[address] [facility] [address] POCT GLUCOSE METER UNSOLICIT ED RESULTSon 05-12-2024 Glucose [Mass/Vol] 99 mg/dL Normal 70-105 [facility] Comment on above: Order Comment: Waive d Testing in the ED is performed under the ED CLIA certificate #[id number]. Result Comment: dhol as Performed By: #### L [id number] #### [facility] (BEAKER) [address] [place] [address] TYPE AND SCREENon 05-12-2024 AB SCREEN Negative Normal [facility] Comment on above: Performed By: #### L [id number] #### [facility] BLOOD BANK , ABO group Nom (Bld) A Normal [facility] Comment on above: Performed By: #### L [id number] #### [facility] BLOOD BANK , RH TYPE IN BLOOD Positive Normal [facility] Comment on above: Performed By: #### L [id number] #### [facility] BLOOD BANK , URINALYSISon 05-10-2024 Bilirubin Ql (U) Negative Normal NEG [facility] Comment on above: Performed By: #### U A #### [facility] ([id number]) [address], [address] [place] [address] BLOOD/HGB Small Abnormal NEG [facility] Comment on above: Performed By: #### U A #### [facility] ([id number]) [address], [address] [place] [address] Color (U) YELLOW Normal YELLOW [facility] Comment on above: Performed By: #### U A #### [facility] ([id number]) [address] [place] [address], [address] [place] [address] Glucose Ql (U) Negative Normal NEG [facility] Comment on above: Performed By: #### U A #### [facility] ([id number]) [address] [place] [address], [address] [place] [address] Ketones Ql (U) Negative Normal NEG [facility] Comment on above: Performed By: #### U A #### [facility] ([id number]) [address] [place] [address], [address] [place] [address] Leukocyte esterase Test strip Ql (U) Negative Normal NEG [facility] Comment on above: Performed By: #### U A #### [facility] ([id number]) [address] [place] [address], [address] [place] [address] MUCOUS PRESENT Abnormal NONE [facility] Comment on above: Performed By: #### U A #### [facility] ([id number]) [address] [place] [address], [address] [place] [address] Nitrite Ql (U) Negative Normal NEG [facility] Comment on above: Performed By: #### U A #### [facility] ([id number]) [address] [place] [address], [address] [place] [address] pH (U) 5.5 [pH] Normal 5.0-8.5 [facility] Comment on above: Performed By: #### U A #### [facility] ([id number]) [address] [place] [address], [address] [place] [address] Protein Ql (U) Negative Normal NEG [facility] Comment on above: Performed By: #### U A #### [facility] ([id number]) [address] [place] [address], [address] [place] [address] R.B.CELLS 1 /hpf Normal 0-5 [facility] Comment on above: Performed By: #### U A #### [facility] ([id number]) [address], [address] [place] [address] Specific gravity (U) [Rel density] 1.026 Normal 1.003-1.035 [facility] Comment on above: Performed By: #### U A #### [facility] ([id number]) [address], [address] [place] [address] SQUAMOUS EPITHELIUM <1 Normal 0-5 [facility] Comment on above: Performed By: #### U A #### [facility] ([id number]) [address], [address] [place] [address] TURBIDITY CLEAR Normal CLEAR [facility] Comment on above: Performed By: #### U A #### [facility] LAB ([id number]) [address], [address] [place] [address] Urobilinogen (U) [Mass/Vol] mg/dL Normal <1.1 [facility] Comment on above: Performed By: #### U A #### [facility] ([id number]) [address], [address] [place] [address] W.B.CELLS 1 /hpf Normal 0-5 [facility] Comment on above: Performed By: #### U A #### [facility] ([id number]) [address], [address] [place] [address] URINE CULTUREon 05-10-2024 Bacteria identified Cx Nom (U) CULTURE RESULTS 10,000 to 50,000 ORGANISMS/mL ESCHERICHIA COLI <10,000 ORGANISMS/mL NORMAL URO GENITAL LUZ ELENA [ S = SUSCEPTIBLE R = RESISTANT I = INTERMEDIATE S-DO = Susceptible-dose dependent NS = Non-suscceptible NO = No Interpretation ] Organism: ESCHERICHIA COLI Antibiotic Interpretation MARCIA Status AMPICILLIN S <=2 F AMP/SULBACTAM S <=2/1 F CEFAZOLIN S <=4 F CEFTRIAXONE S <=1 F CIPROFLOXACIN S <=0.25 F GENTAMICIN S <=1 F LEVOFLOXACIN S <=0.12 F NITROFURANTOIN S <=16 F PIPERACIL/TAZOBACTAM S <=4 F TOBRAMYCIN S <=1 F TRIMETH/SULFAMETHOXAZOL E S <=1/19 F Susceptible [facility] Comment on above: Performed By: #### 6 30-4 #### [facility] ([id number]) [address], [address] [place] [address] MRSA PCR NASALon 05-04-2024 MRSA DNA QUINTIN+probe Ql (Unsp spec) Negative Normal NEG [facility] Comment on above: Performed By: #### 3 5492-8 #### [facility] ([id number]) [address], [address] [place] [address] Orders Onlyon 05-04-2024 Orders Only [id number] Royce Delaney 1950 M Date Provider Department Center 05/04/2024 [id number], HISTORICAL [facility] [place] [facility] C No family history on file Normal [facility] PROTIME AND INRon 05-04-2024 INR Coag (PPP) [Relative time] 1.2 {INR} High 0.8-1.1 [facility] Comment on above: Performed By: #### P INR, 31721-9 #### [facility] ([id number]) [address] [place] [id number] PT Coag (PPP) [Time] 13.4 s High 9.8-13.2 [facility] Comment on above: Result Comment: NEW REFERENCE RANGE Performed By: #### P INR, 37746-8 #### [facility] ([id number]) [address] [place] [id number] aPTT Coag (PPP) [Time]on aPTT Coag (Bld) [Time] 34 s Normal 26-37 [facility] Comment on above: Result Comment: NEW REFERENCE RANGE Performed By: #### P INR, 96521-3 #### [facility] ([id number]) [address] [place] [address] [place] [address] 36on 04-27-2024 36 Patient scheduled wi ll get blood work done closer to his house [facility] for Procedureon 024 Prep for Procedure [id number] Royce Delaney 1950 M Date Provider Department [facility] No family history on file [facility] 36on 04-26-2024 36 Patient is calling b ack states he was returning a phone call but theres no documentation on who called him back. [facility] 36 Patient would like t o schedule his surgery for his knees, states his phone isn't working correctly he will probably miss the first call but will call right back. [facility] 36on 04-20-2024 36 Left voicemail to ca ll back and discuss. [facility] 36 Patient called and h as question re-guarding appointment yesterday, patient would like call back [phone] [facility] HPon 04-19-2024 Orthopedic Surgery Subjective New Patient and Pain of the Right Knee 04/19/24 Royce Delaney is a 74 y.o. male presenting for evaluation of right knee pain. Patient reports that he has had pain of his right knee for the last several months, which is worse with walking. Patient reports that he has a history of a right total knee replacement performed by Dr. Chico Sutton MD at [facility] 5 years ago on 14 July 2019. Patient reports that over the last several months he has had increasing pain and feeling of instability when he ambulates. He denies any numbness or tingling of his right lower extremity. Patient presents for Dr. Elvis BOLANOS as he is also s/p left primary total knee arthroplasty done by Dr. Leal prior to his right knee joint. He was evaluated by Dr. Leal and has been referred to me for further evaluation and treatment. Patient does not want to go back to his prior surgeon for revision of his right knee arthroplasty as he believes that he is never felt right following his knee arthroplasty and he does not trust them anymore. Patient denies change in his general health. Patient has a complex medical history of severe cervical spondylosis at C1-C2 and C3 along with calcification of the posterior longitudinal ligament. Patient reports that he has also had a left total knee arthroplasty performed [address] Emmy RAM. Patient reports no issues of his left knee at this time. Patient has a medical history of chronic lymphedema bilateral lower extremities. 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 Patient states he is unable to walk and wants to proceed with his revision knee arthroplasty as soon as possible as he has to look after his . Patient denies any fever, chills or rigors and breathlessness. Patient History Past Surgical History: Procedure Laterality Date ANKLE SURGERY Right HERNIA REPAIR TONSILLECTOMY TOTAL KNEE ARTHROPLASTY Bilateral No past medical history on file. Objective General: Body mass index is 47.1 kg/m???. No acute distress, comfortable Class III obesity noted. Severe antalgia. Right Knee: Inspection- no ecchymosis, no edema, no effusion Tender to palpation over medial joint line, otherwise non-tender Bilateral incisions over the knee joints have healed well including the right knee joint. Patient has stasis around the becerril on both sides suggestive of poor circulation as well as varicose distal veins noted right side worse than left side. Distal pulses are intact. Knee ROM: Extension- 0??? Flexion- 80??? Strength: Knee Flexion 4+/5 Knee Extension 4+/5 Ankle Dorsiflexion 5/5 Ankle Plantarflexion 5/5 Sensation: intact over superficial peroneal, deep peroneal and tibial nerve distributions Shows paresthesia around the incision site with severe pain globally. No evidence of any major effusion noted in the right knee joint. Trophic changes noted with pitting edema to the patient. Patient has severe pain and is unable to stand or walk on the right lower extremity. Stability: Stable to varus and valgus stress Stable to anterior and posterior thrust Gait: heel toe pattern, normal Imaging X-rays right knee 04/19/2024 obtained today in clinic: Right knee joint 3 views that were taken today which show demonstrates right total knee arthroplasty with medial sided failure and significant varus angulation of tibial component secondary to loosening and sinking with noted. There is abnormal angulation and alignment noted with lucency around the tibial component suggestive of loosening of the knee arthroplasty. These were shown and explained to the patient. X-rays of the left knee joint were not available to be seen. Patient will need standing x-rays after he comes back for further evaluation of his mechanical axis due to his class III obesity we will need this so as to plan his right revision knee arthroplasty in future. X-rays of his cervical spine that were done were also reviewed which show the patient has had MRI scans to support his diagnosis of moderate cervical spondylosis with variable neural foramen narrowing but no significant cord compression or abnormal cord signal. Suggestion of thickening of the posterior longitudinal ligament at C1-C3 level versus small epidural fluid collection but without significant canal stenosis or cord compression at this level. Imaging personally reviewed and interpreted by attending physician. Findings discussed with patient. Assessment/Plan Loosening of the right knee arthroplasty with unstable prosthetic knee components initial visit S/p bilateral (more content not included)... Normal [facility] Office Visiton 04-19-2024 Follow-up visit [id number] Royce Delaney 1950 M Date Provider Department Center 04/19/2024 [facility] MP ORTHO MPORTHO No family history on file Level of Service:46782 [place] OFFICE/OUTPATIENT NEW HIGH MDM 60 MINUTES (GC,57) Reason for Visit and Comments: New Patient [632] Pain [136] Normal [facility] Vital Signs Date Time Vital Sign Value Performing Clinician Facility 07-25-2025 10:09040 Body mass index (BMI) [Ratio] 51.25 kg/m2 Justino Gaspar MD Work Phone: [facility] 07-25-2025 10:09040 Body weight 171.46 kg Justino Gaspar MD [facility] 07-25-2025 10:09040 Diastolic blood pressure 72 mm[Hg] Justino Gaspar MD Work Phone: [facility] 07-25-2025 10:09040 Heart rate 80 /min Justino Gaspar MD Work Phone: [facility] 07-25-2025 10:09-0400 Respiratory rate 20 /min Justino Gaspar MD Work Phone: [facility] 07-25-2025 10:09-0400 SaO2% (BldA) [Mass fraction] 97 % Justino Gaspar MD Work Phone: [facility] 07-25-2025 10:09-0400 Systolic blood pressure 110 mm[Hg] Justino Gaspar MD Work Phone: [facility] 07-11-2025 11:01-0400 Body height 182.9 cm Jonathon Dahl DPM Work Phone: [facility] 07-11-2025 11:01-0400 Body mass index (BMI) [Ratio] 50.59 kg/m2 Jonathon Dahl DPM Work Phone: [facility] 07-11-2025 11:01-0400 Body weight 169.19 kg Jonathonoscar Dahl DPM Work Phone: [facility] 07-11-2025 09:26-0400 Body mass index (BMI) [Ratio] 50.58 kg/m2 Bo Michelle RESORT KEEPER-IMAGING NURSE Work Phone: [facility] 07-11-2025 09:26-0400 Body weight 169.19 kg Bo Merinoer RESORT KEEPER-IMAGING NURSE Work Phone: [facility] 07-11-2025 09:26-0400 Diastolic blood pressure 86 mm[Hg] Bo Michelle RESORT KEEPER-IMAGING NURSE Work Phone: [facility] 07-11-2025 09:26-0400 Heart rate 64 /min Bo Michelle RESORT KEEPER-IMAGING NURSE Work Phone: [facility] 07-11-2025 09:26-0400 Respiratory rate 20 /min Bo Michelle RESORT KEEPER-IMAGING NURSE Work Phone: [facility] 07-11-2025 09:26-0400 SaO2% (BldA) [Mass fraction] 99 % Bo Michelle RESORT KEEPER-IMAGING NURSE Work Phone: [facility] 07-11-2025 09:26-0400 Systolic blood pressure 130 mm[Hg] Bo Michelle RESORT KEEPER-IMAGING NURSE Work Phone: [facility] 06-16-2025 14:14-0400 Body height 182.9 cm Jonathon Dahl DPM Work Phone: [facility] 06-16-2025 14:14-0400 Body mass index (BMI) [Ratio] 48.82 kg/m2 Jonathon Dahl DPM Work Phone: [facility] 06-16-2025 14:14-0400 Body weight 163.29 kg Jonathon Dahl DPM Work Phone: [facility] 04-06-2025 08:23-0400 Body height 182.9 cm Jonathon Dahl DPM Work Phone: [facility] 04-06-2025 08:23-0400 Body mass index (BMI) [Ratio] 48.82 kg/m2 Jonathon Dahl DPM Work Phone: [facility] 04-06-2025 08:23-0400 Body weight 163.29 kg Jonathon Dahl DPM Work Phone: [facility] 03-09-2025 14:44-0400 Body mass index (BMI) [Ratio] 49.22 kg/m2 Bo Michelle RESORT KEEPER-IMAGING NURSE Work Phone: [facility] 03-09-2025 14:44-0400 Body weight 164.66 kg Bo Michelle RESORT KEEPER-IMAGING NURSE Work Phone: [facility] 03-09-2025 14:44-0400 Diastolic blood pressure 74 mm[Hg] Bo Michelle RESORT KEEPER-IMAGING NURSE Work Phone: [facility] 03-09-2025 14:44-0400 Heart rate 68 /min Bo Michelle RESORT KEEPER-IMAGING NURSE Work Phone: [facility] 03-09-2025 14:44-0400 Respiratory rate 18 /min Bo Michelle RESORT KEEPER-IMAGING NURSE Work Phone: [facility] 03-09-2025 14:44-0400 SaO2% (BldA) [Mass fraction] 97 % Bo Michelle RESORT KEEPER-IMAGING NURSE Work Phone: [facility] 03-09-2025 14:44-0400 Systolic blood pressure 130 mm[Hg] Bo Michelle RESORT KEEPER-IMAGING NURSE Work Phone: [facility] 03-08-2025 11:05-0400 Body height 182.9 cm Guerda Aggarwal MD Work Phone: [facility] 03-08-2025 11:05-0400 Body mass index (BMI) [Ratio] 48.81 kg/m2 Guerda Aggarwal MD Work Phone: [facility] 03-08-2025 11:05-0400 Body weight 163.29 kg Guerda Aggarwal MD Work Phone: [facility] 03-08-2025 11:05-0400 Diastolic blood pressure 73 mm[Hg] Guerda Aggarwal MD Work Phone: [facility] 03-08-2025 11:05-0400 Heart rate 80 /min Guerda Aggarwal MD Work Phone: [facility] 03-08-2025 11:05-0400 SaO2% (BldA) [Mass fraction] 95 % Guerda Aggarwal MD Work Phone: [facility] 03-08-2025 11:05-0400 Systolic blood pressure 128 mm[Hg] Guerda Aggarwal MD Work Phone: [facility] 02-28-2025 15:26-0400 Body mass index (BMI) [Ratio] 48.96 kg/m2 Bo Schchepe RESORT KEEPER-IMAGING NURSE Work Phone: [facility] 02-28-2025 15:26-0400 Body weight 163.75 kg Bo Michelle RESORT KEEPER-IMAGING NURSE Work Phone: [facility] 02-28-2025 15:26-0400 Diastolic blood pressure 72 mm[Hg] Bo Adkinsestermarycruzer RESORT KEEPER-IMAGING NURSE Work Phone: [facility] 02-28-2025 15:26-0400 Heart rate 76 /min Bo Adkinsestermarycruzer RESORT KEEPER-IMAGING NURSE Work Phone: [facility] 02-28-2025 15:26-0400 Respiratory rate 18 /min Bo Merinoer RESORT KEEPER-IMAGING NURSE Work Phone: [facility] 02-28-2025 15:26-0400 SaO2% (BldA) [Mass fraction] 97 % Bo aMrtinchter RESORT KEEPER-IMAGING NURSE Work Phone: [facility] 02-28-2025 15:26-0400 Systolic blood pressure 134 mm[Hg] Bo Michelle RESORT KEEPER-IMAGING NURSE Work Phone: [facility] 02-24-2025 13:17-0400 Body height 182.9 cm Jonathon Dahl DPM Work Phone: [facility] 02-24-2025 13:17-0400 Body mass index (BMI) [Ratio] 48.82 kg/m2 Jonathon Dahl DPM Work Phone: [facility] 02-24-2025 13:17-0400 Body weight 163.29 kg Jonathon Dahl DPM Work Phone: [facility] 02-21-2025 14:58-0400 Body mass index (BMI) [Ratio] 49.64 kg/m2 Bo Mariochter RESORT KEEPER-IMAGING NURSE Work Phone: [facility] 02-21-2025 14:58-0400 Body weight 166.02 kg Bo Schesterchter RESORT KEEPER-IMAGING NURSE Work Phone: [facility] 02-21-2025 14:58-0400 Diastolic blood pressure 76 mm[Hg] Bo Michelle RESORT KEEPER-IMAGING NURSE Work Phone: [facility] 02-21-2025 14:58-0400 Heart rate 96 /min Bo Merinoer RESORT KEEPER-IMAGING NURSE Work Phone: [facility] 02-21-2025 14:58-0400 Respiratory rate 20 /min Bo Merinoer RESORT KEEPER-IMAGING NURSE Work Phone: [facility] 02-21-2025 14:58-0400 SaO2% (BldA) [Mass fraction] 96 % Bo Michelle RESORT KEEPER-IMAGING NURSE Work Phone: [facility] 02-21-2025 14:58-0400 Systolic blood pressure 130 mm[Hg] Bo Michelle RESORT KEEPER-IMAGING NURSE Work Phone: [facility] 12-29-2024 14:15-0500 Body height 182.9 cm Jonathon Rusher DPM Work Phone: [facility] 12-29-2024 14:15-0500 Body mass index (BMI) [Ratio] 47.47 kg/m2 Jonathon Rusher DPM Work Phone: [facility] 12-29-2024 14:15-0500 Body weight 158.76 kg Jonathon Rusher DPM Work Phone: [facility] 12-13-2024 13:03-0500 Body height 182.9 cm Jonathon Rusher DPM Work Phone: [facility] 12-13-2024 13:03-0500 Body mass index (BMI) [Ratio] 47.47 kg/m2 Jonathon Rusher DPM Work Phone: [facility] 12-13-2024 13:03-0500 Body weight 158.76 kg Jonathon Rusher DPM Work Phone: [facility] 11-24-2024 14:52-0500 Body height 182.9 cm Jonathon Rusher DPM Work Phone: [facility] 11-24-2024 14:52-0500 Body mass index (BMI) [Ratio] 47.47 kg/m2 Jonathon Dahl DPM Work Phone: [facility] 11-24-2024 14:52-0500 Body weight 158.76 kg Jonathon Hesham DPM Work Phone: [facility] 10-21-2024 14:39-0500 Body height 182.9 cm Megan Blank MD Work Phone: [facility] 10-21-2024 14:39-0500 Body mass index (BMI) [Ratio] 47.4 kg/m2 Megan Blank MD Work Phone: [facility] 10-21-2024 14:39-0500 Body temperature 95.7 [degF] Megan Blank MD Work Phone: [facility] 10-21-2024 14:39-0500 Body weight 158.53 kg Megan Blank MD Work Phone: [facility] 10-21-2024 14:39-0500 Diastolic blood pressure 82 mm[Hg] Megan Blank MD Work Phone: [facility] 10-21-2024 14:39-0500 Heart rate 80 /min Megan Blank MD Work Phone: [facility] 10-21-2024 14:39-0500 Respiratory rate 16 /min Megan Blank MD Work Phone: [facility] 10-21-2024 14:39-0500 Systolic blood pressure 138 mm[Hg] Megan Blank MD Work Phone: [facility] 10-07-2024 14:36-0500 Body mass index (BMI) [Ratio] 47.6 kg/m2 Cesar Valle MD Work Phone: [facility] 10-07-2024 14:36-0500 Body weight 159.21 kg Cesar Valle MD Work Phone: [facility] 10-07-2024 14:36-0500 Diastolic blood pressure 83 mm[Hg] Cesar Valle MD Work Phone: [facility] 10-07-2024 14:36-0500 Heart rate 87 /min Cesar Valle MD Work Phone: [facility] 10-07-2024 14:36-0500 Systolic blood pressure 141 mm[Hg] Cesar Valle MD Work Phone: [facility] 09-28-2024 14:48-0500 Body height 182.9 cm Megan Blank MD Work Phone: [facility] 09-28-2024 14:48-0500 Body mass index (BMI) [Ratio] 46.93 kg/m2 Megan Blank MD Work Phone: [facility] 09-28-2024 14:48-0500 Body temperature 97.2 [degF] Megan Blank MD Work Phone: [facility] 09-28-2024 14:48-0500 Body weight 156.94 kg Megan Blank MD Work Phone: [facility] 09-28-2024 14:48-0500 Diastolic blood pressure 70 mm[Hg] Megan Blank MD Work Phone: [facility] 09-28-2024 14:48-0500 Heart rate 97 /min Megan Blank MD Work Phone: [facility] 09-28-2024 14:48-0500 Respiratory rate 18 /min Megan Blank MD Work Phone: [facility] 09-28-2024 14:48-0500 SaO2% (BldA) [Mass fraction] 96 % Megan Blank MD Work Phone: [facility] 09-28-2024 14:48-0500 Systolic blood pressure 124 mm[Hg] Megan Blank MD Work Phone: [facility] 08-12-2024 14:57-0400 Body height 182.9 cm Jonathon Dahl DPM Work Phone: [facility] 08-12-2024 14:57-0400 Body mass index (BMI) [Ratio] 47.47 kg/m2 Jonathon Dahl DPM Work Phone: [facility] 08-12-2024 14:57-0400 Body weight 158.76 kg Jonathon Dahl DPM Work Phone: [facility] 08-09-2024 10:26-0400 Body height 182.9 cm Megan Blank MD Work Phone: [facility] 08-09-2024 10:26-0400 Body mass index (BMI) [Ratio] 46.11 kg/m2 Megan Blank MD Work Phone: [facility] 08-09-2024 10:26-0400 Body temperature 98.71 [degF] Megan Blank MD Work Phone: [facility] 08-09-2024 10:26-0400 Body weight 154.22 kg Megan Blank MD Work Phone: [facility] 08-09-2024 10:26-0400 Diastolic blood pressure 80 mm[Hg] Megan Blank MD Work Phone: [facility] 08-09-2024 10:26-0400 Heart rate 88 /min Megan Blank MD Work Phone: [facility] 08-09-2024 10:26-0400 Respiratory rate 16 /min Megan Blank MD Work Phone: [facility] 08-09-2024 10:26-0400 Systolic blood pressure 132 mm[Hg] Megan Blank MD Work Phone: [facility] 07-30-2024 14:53-0400 Body height 182.9 cm Megan Blank MD Work Phone: [facility] 07-30-2024 14:53-0400 Body mass index (BMI) [Ratio] 46.11 kg/m2 Megan Blank MD Work Phone: [facility] 07-30-2024 14:53-0400 Body temperature 97.9 [degF] Megan Blank MD Work Phone: [facility] 07-30-2024 14:53-0400 Body weight 154.22 kg Megan Blank MD Work Phone: [facility] 07-30-2024 14:53-0400 Diastolic blood pressure 70 mm[Hg] Megan Blank MD Work Phone: [facility] 07-30-2024 14:53-0400 Heart rate 88 /min Megan Blank MD Work Phone: [facility] 07-30-2024 14:53-0400 Respiratory rate 16 /min Megan Blank MD Work Phone: [facility] 07-30-2024 14:53-0400 Systolic blood pressure 126 mm[Hg] Megan Blank MD Work Phone: [facility] 06-25-2024 13:00-0400 Body mass index (BMI) [Ratio] 47.1 kg/m2 Jo Bertha RESORT KEEPER-IMAGING NURSE Work Phone: [facility] 06-25-2024 13:00-0400 Body temperature 97.9 [degF] Jo Stone RESORT KEEPER-IMAGING NURSE Work Phone: [facility] 06-25-2024 13:00-0400 Body weight 157.53 kg Jo Kirby RESORT KEEPER-IMAGING NURSE Work Phone: [facility] 06-25-2024 13:00-0400 Diastolic blood pressure 75 mm[Hg] Jo Stone RESORT KEEPER-IMAGING NURSE Work Phone: [facility] 06-25-2024 13:00-0400 Heart rate 91 /min Jo Bertha BEAU-IMAGING NURSE Work Phone: [facility] 06-25-2024 13:00-0400 Respiratory rate 18 /min Jo Bertha RESORT KEEPER-IMAGING NURSE Work Phone: [facility] 06-25-2024 13:00-0400 Systolic blood pressure 113 mm[Hg] Jo Stone RESORT KEEPER-IMAGING NURSE Work Phone: [facility] 06-25-2024 09:32-0400 Body height 182.9 cm Megan Blank MD Work Phone: [facility] 06-25-2024 09:32-0400 Body mass index (BMI) [Ratio] 46.79 kg/m2 Megan Blank MD Work Phone: [facility] 06-25-2024 09:32-0400 Body temperature 98.01 [degF] Megan Blank MD Work Phone: [facility] 06-25-2024 09:32-0400 Body weight 156.49 kg Megan Blank MD Work Phone: [facility] 06-25-2024 09:32-0400 Diastolic blood pressure 84 mm[Hg] Megan Blank MD Work Phone: [facility] 06-25-2024 09:32-0400 Heart rate 80 /min Megan Blank MD Work Phone: [facility] 06-25-2024 09:32-0400 Respiratory rate 16 /min Megan Blank MD Work Phone: [facility] 06-25-2024 09:32-0400 Systolic blood pressure 140 mm[Hg] Megan Blank MD Work Phone: [facility] 06-24-2024 10:59-0400 Diastolic blood pressure 80 mm[Hg] Cesar Valle MD Work Phone: [facility] 06-24-2024 10:59-0400 Heart rate 88 /min Cesar Valle MD Work Phone: [facility] 06-24-2024 10:59-0400 SaO2% (BldA) [Mass fraction] 95 % Cesar Valle MD Work Phone: [facility] 06-24-2024 10:59-0400 Systolic blood pressure 130 mm[Hg] Cesar Valle MD Work Phone: [facility] 06-24-2024 10:57-0400 Body height 182.9 cm Cesar Valle MD Work Phone: [facility] 06-24-2024 10:57-0400 Body mass index (BMI) [Ratio] 47.06 kg/m2 Cesar Valle MD Work Phone: [facility] 06-24-2024 10:57-0400 Body weight 157.4 kg Cesar Valle MD Work Phone: [facility] 06-15-2024 16:01-0400 Body height 182.9 cm Megan Blank MD Work Phone: [facility] 06-15-2024 16:01-0400 Body mass index (BMI) [Ratio] 47.13 kg/m2 Megan Blank MD Work Phone: [facility] 06-15-2024 16:01-0400 Body temperature 98.01 [degF] Megan Blank MD Work Phone: [facility] 06-15-2024 16:01-0400 Body weight 157.63 kg Megan Blank MD Work Phone: [facility] 06-15-2024 16:01-0400 Diastolic blood pressure 80 mm[Hg] Megan Blank MD Work Phone: [facility] 06-15-2024 16:01-0400 Heart rate 88 /min Megan Blank MD Work Phone: [facility] 06-15-2024 16:01-0400 Respiratory rate 16 /min Megan Blank MD Work Phone: [facility] 06-15-2024 16:01-0400 Systolic blood pressure 124 mm[Hg] Megan Blank MD Work Phone: [facility] 06-04-2024 09:37-0400 Body height 182.9 cm Megan Blank MD Work Phone: [facility] 06-04-2024 09:37-0400 Body mass index (BMI) [Ratio] 46.79 kg/m2 Megan Blank MD Work Phone: [facility] 06-04-2024 09:37-0400 Body temperature 97.9 [degF] Megan Blank MD Work Phone: [facility] 06-04-2024 09:37-0400 Body weight 156.49 kg Megan Blank MD Work Phone: [facility] 06-04-2024 09:37-0400 Diastolic blood pressure 80 mm[Hg] Megan Blank MD Work Phone: [facility] 06-04-2024 09:37-0400 Heart rate 80 /min Megan Blank MD Work Phone: [facility] 06-04-2024 09:37-0400 Respiratory rate 16 /min Megan Blank MD Work Phone: [facility] 06-04-2024 09:37-0400 Systolic blood pressure 136 mm[Hg] Megan Blank MD Work Phone: [facility] 03-11-2024 09:17-0400 Body height 182.9 cm Megan Blank MD Work Phone: [facility] 03-11-2024 09:17-0400 Body mass index (BMI) [Ratio] 48.42 kg/m2 Megan Blank MD Work Phone: [facility] 03-11-2024 09:17-0400 Body weight 161.93 kg Megan Blank MD Work Phone: [facility] 03-11-2024 09:17-0400 Diastolic blood pressure 80 mm[Hg] Megan Blank MD Work Phone: [facility] 03-11-2024 09:17-0400 Heart rate 88 /min Megan Blank MD Work Phone: [facility] 03-11-2024 09:17-0400 Respiratory rate 16 /min Megan Blank MD Work Phone: [facility] 03-11-2024 09:17-0400 Systolic blood pressure 140 mm[Hg] Megan Blank MD Work Phone: [facility] 01-26-2024 14:00-0400 Body height 182.9 cm Megan Blank MD Work Phone: [facility] 01-26-2024 14:00-0400 Body mass index (BMI) [Ratio] 48.82 kg/m2 Megan Blank MD Work Phone: [facility] 01-26-2024 14:00-0400 Body weight 163.29 kg Megan Blank MD Work Phone: [facility] 01-26-2024 14:00-0400 Diastolic blood pressure 76 mm[Hg] Megan Blank MD Work Phone: [facility] 01-26-2024 14:00-0400 Heart rate 88 /min Megan Blank MD Work Phone: [facility] 01-26-2024 14:00-0400 Respiratory rate 16 /min Megan Blank MD Work Phone: [facility] 01-26-2024 14:00-0400 Systolic blood pressure 120 mm[Hg] Megan Blank MD Work Phone: [facility] Encounters Encounter Date Encounter Type Care Provider Facility Start: 08-09-2025 End: 08-09-2025 Bamboo flowsheet Jonathon Dahl DPM Work Phone: [facility] Start: 08-09-2025 End: 08-09-2025 Bamboo flowsheet Jonathon Dahl DPM Work Phone: [facility] [place] [facility] Start: 08-09-2025 End: 08-09-2025 ambulatory JONATHON DAHL Not Available Start: 08-03-2025 End: 08-03-2025 Orders Only Justino Gaspar MD Work Phone: [facility] Comment on above: 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) Start: 07-25-2025 End: 07-25-2025 Office outpatient visit 25 minutes Justino Gaspar MD Work Phone: [facility] Comment on above: Cellulitis of right lower leg (Primary Dx); Cellulitis of left lower leg; Lymphedema of both lower extremities Start: 07-25-2025 End: 07-25-2025 ambulatory [facility] Start: 07-11-2025 End: 07-11-2025 Bamboo flowsheet Jonathon Dahl DPM Work Phone: [facility] Start: 07-11-2025 End: 07-11-2025 Bamboo flowsheet Jonathon Dahl DPM Work Phone: [facility] Start: 07-11-2025 End: 07-11-2025 Patient encounter procedure Jonathon Dahl DPM Work Phone: [facility] Comment on above: Onychomycosis (Prima ry Dx); Onychodystrophy; Pain around toenail, right foot; Pain around toenail, left foot Start: 07-11-2025 End: 07-11-2025 ambulatory JONATHON DAHL Not Available Start: 07-11-2025 End: 07-11-2025 Office outpatient visit 25 minutes Bo Schchepe [place] Work Phone: [facility] Comment on above: Lymphedema of both l ower extremities (Primary Dx); Cellulitis of right lower leg; Cellulitis of left lower leg Start: 07-11-2025 End: 07-11-2025 ambulatory [facility] Start: 06-16-2025 End: 06-16-2025 Office outpatient visit 15 minutes Jonathon Dahl DPM Work Phone: [facility] Comment on above: Plantar wart, left f oot (Primary Dx); Acquired keratoderma; Left foot pain; Difficulty walking Start: 06-16-2025 End: 06-16-2025 Bamboo flowsheet Jonathon Dahl DPM Work Phone: [facility] Start: 06-16-2025 End: 06-16-2025 Bamboo flowsheet Jonathon Dahl DPM Work Phone: [facility] Start: 06-16-2025 End: 06-16-2025 ambulatory JONATHON DAHL Not Available Start: 05-18-2025 End: 05-18-2025 Refill Megan Blank MD Work Phone: [facility] Start: 05-14-2025 End: 05-16-2025 Refill Megan Blank MD Work Phone: [facility] Start: 04-28-2025 End: 04-28-2025 Refill Kathy [facility] Comment on above: Other iron deficienc y anemia Start: 04-27-2025 End: 04-27-2025 Telephone encounter Guerda Aggarwal MD Work Phone: [facility] Comment on above: Other iron deficienc y anemia (Primary Dx) Start: 04-27-2025 ambulatory GUERDA AGGARWAL [facility] Start: 04-06-2025 End: 04-06-2025 Bamboo flowsheet Jonathon Dahl DPM Work Phone: [facility] Start: 04-06-2025 End: 04-06-2025 Bamboo flowsheet Jonathon Dahl DPM Work Phone: [facility] Start: 04-06-2025 End: 04-06-2025 Office outpatient visit 15 minutes Jonathon Dahl DPM Work Phone: [facility] Comment on above: Bursitis of left jah t (Primary Dx); Acquired keratoderma; Left foot pain; Difficulty walking Start: 04-06-2025 End: 04-06-2025 ambulatory JONATHON DAHL Not Available Start: 03-14-2025 End: 03-14-2025 Orders Only Justino Gaspar MD Work Phone: [facility] Comment on above: Nonrheumatic aortic valve stenosis (Primary Dx) Start: 03-09-2025 End: 03-09-2025 ambulatory [facility] Start: 03-09-2025 End: 03-09-2025 Office outpatient visit 15 minutes Bo Michelle RESORT KEEPER-IMAGING NURSE Work Phone: [facility] Comment on above: Lymphedema of both l ower extremities (Primary Dx); Cellulitis of right lower leg Start: 03-09-2025 End: 03-09-2025 Telephone encounter Joy Michelle CMA [facility] Start: 03-08-2025 End: 03-08-2025 Office outpatient visit 25 minutes Guerda Aggarwal MD Work Phone: [facility] Comment on above: STEFF (obstructive sle ep apnea) (Primary Dx); Iron deficiency anemia, unspecified iron deficiency anemia type; RLS (restless legs syndrome); Class 3 severe obesity due to excess calories with serious comorbidity and body mass index (BMI) of 45.0 to 49.9 in adult Start: 03-08-2025 End: 03-08-2025 ambulatory [facility] Start: 03-02-2025 End: 03-02-2025 Orders Only Bo Michelle RESORT KEEPER-IMAGING NURSE Work Phone: [facility] Comment on above: Lymphedema of both l ower extremities (Primary Dx); Cellulitis of right lower leg Start: 02-28-2025 End: 02-28-2025 Office outpatient visit 15 minutes Bo Michelle RESORT KEEPER-IMAGING NURSE Work Phone: [facility] Comment on above: Lymphedema of both l ower extremities (Primary Dx); Cellulitis of right lower leg Start: 02-28-2025 End: 02-28-2025 ambulatory [facility] Start: 02-24-2025 End: 02-24-2025 Bamboo flowsheet Jonathon Dahl DPM Work Phone: [facility] Start: 02-24-2025 End: 02-24-2025 Bamboo flowsheet Jonathon Dahl DPM Work Phone: [facility] Start: 02-24-2025 End: 02-24-2025 Telephone encounter Elvia Lara [facility] Start: 02-24-2025 End: 02-24-2025 Patient encounter procedure Jonathon Dahl DPM Work Phone: [facility] Comment on above: Onychomycosis (Prima ry Dx); Onychodystrophy; Pain around toenail, right foot; Pain around toenail, left foot Start: 02-24-2025 End: 02-24-2025 ambulatory JONATHON DAHL Not Available Start: 02-21-2025 End: 02-21-2025 ambulatory [facility] Start: 02-21-2025 End: 02-21-2025 Office outpatient visit 25 minutes [facility] RESORT KEEPER-IMAGING NURSE Work Phone: [facility] Comment on above: Lymphedema of both l ower extremities (Primary Dx); Cellulitis of right lower leg; Arthritis of left sacroiliac joint; Chronic bronchitis, unspecified chronic bronchitis type ([facility]); BMI 45.0-49.9, adult ([facility]); Pure hypercholesterolemia; Essential hypertension Start: 02-21-2025 End: 02-21-2025 Telephone encounter Adriana Weaver RN Work Phone: [facility] Start: 01-26-2025 End: 01-26-2025 Office outpatient visit 15 minutes Jonathon Dahl DPM Work Phone: [facility] Comment on above: Plantar wart, left f oot (Primary Dx); Acquired keratoderma; Left foot pain; Difficulty walking Start: 01-26-2025 End: 01-26-2025 ambulatory JONATHON DAHL Not Available Start: 01-26-2025 End: 01-26-2025 Bamboo flowsheet Jonathon Dahl DPM Work Phone: [facility] Start: 01-26-2025 End: 01-26-2025 Bamboo flowsheet Jonathon Dahl DPM Work Phone: [facility] Start: 12-29-2024 End: 12-29-2024 Office outpatient visit 15 minutes Jonathon Dahl DPM Work Phone: [facility] Comment on above: Plantar wart, left f oot (Primary Dx); Acquired keratoderma; Left foot pain; Difficulty walking Start: 12-29-2024 End: 12-29-2024 ambulatory JONATHON DAHL Not Available Start: 12-29-2024 End: 12-29-2024 Bamboo flowsheet Jonathon Dahl DPM Work Phone: [facility] Start: 12-29-2024 End: 12-29-2024 Bamboo flowsheet Jonathon Dahl DPM Work Phone: [facility] Start: 12-27-2024 End: 12-27-2024 Orders Only Bo Michelle APRN-IMAGING NURSE Work Phone: [facility] Start: 12-13-2024 End: 12-13-2024 Bamboo flowsheet Jonathon Dahl DPM Work Phone: [facility] Start: 12-13-2024 End: 12-13-2024 Bamboo flowsheet Jonathon Dahl DPM Work Phone: [facility] Start: 12-13-2024 End: 12-13-2024 Office outpatient visit 15 minutes Jonathon Dahl DPM Work Phone: [facility] Comment on above: Plantar wart, left f oot (Primary Dx); Acquired keratoderma; Left foot pain; Difficulty walking Start: 12-13-2024 End: 12-13-2024 ambulatory JONATHON DAHL Not Available Start: 11-24-2024 End: 11-24-2024 Patient encounter procedure Joanthon Dahl DPM Work Phone: [facility] Comment on above: Onychomycosis (Prima ry Dx); Onychodystrophy; Pain around toenail, right foot; Pain around toenail, left foot Start: 11-24-2024 End: 11-24-2024 ambulatory JONATHON DAHL Not Available Start: 11-24-2024 End: 11-24-2024 Bamboo flowsheet Jonathon Dahl DPM Work Phone: [facility] Start: 11-24-2024 End: 11-24-2024 Bamboo flowsheet Jonathon Dahl DPM Work Phone: [facility] Start: 11-08-2024 End: 11-11-2024 Telephone encounter Megan Blank MD Work Phone: [facility] Start: 10-21-2024 End: 10-21-2024 Patient encounter procedure Megan Blank MD Work Phone: [facility] Comment on above: Routine general medi adrian examination at a health care facility (Primary Dx); Essential hypertension; Pure hypercholesterolemia; Lymphedema of both lower extremities; BMI 45.0-49.9, adult ([facility]) Start: 10-21-2024 End: 10-21-2024 Patient encounter status Megan Blank MD Work Phone: [facility] Work Phone: Start: 10-21-2024 End: 10-21-2024 ambulatory MEGAN Fournier [facility] Start: 10-21-2024 Encounter for genera l adult medical examination without abnormal findings MEGAN Fournier [facility] Start: 10-08-2024 End: 10-08-2024 Refill Ev Headley [facility] Start: 10-07-2024 End: 10-07-2024 Office outpatient visit 15 minutes Cesar Valle MD Work Phone: [facility] Comment on above: Lymphedema of both l ower extremities (Primary Dx) Start: 10-07-2024 End: 10-07-2024 ambulatory CESAR VALLE [facility] Start: 09-28-2024 End: 09-28-2024 Office outpatient visit 15 minutes Megan Blank MD Work Phone: [facility] Comment on above: Cellulitis of right lower leg (Primary Dx); Lymphedema of both lower extremities Start: 09-28-2024 End: 09-28-2024 ambulatory [facility] Start: 08-12-2024 End: 08-12-2024 ambulatory JONATHON DAHL Not Available Start: 08-12-2024 End: 08-12-2024 Patient encounter procedure Jonathon Dahl DPM Work Phone: [facility] Comment on above: Onychomycosis (Prima ry Dx); Onychodystrophy; Pain around toenail, right foot; Pain around toenail, left foot Start: 08-09-2024 End: 08-09-2024 Office outpatient visit 25 minutes Megan Blank MD Work Phone: [facility] Comment on above: Cellulitis of right lower leg (Primary Dx); Chronic bronchitis, unspecified chronic bronchitis type (CMS-HCC); Essential hypertension; Pure hypercholesterolemia; Asthenia Start: 08-09-2024 End: 08-09-2024 ambulatory [facility] Start: 08-06-2024 End: 08-06-2024 Telephone encounter Asia Olson LPN [facility] Start: 07-30-2024 End: 08-03-2024 Emergency department patient visit BETTY ROMO [facility] Start: 07-30-2024 End: 08-02-2024 Evaluation and management of inpatient [facility] Start: 07-30-2024 End: 07-30-2024 Office outpatient visit 15 minutes Megan Blank MD Work Phone: [facility] Comment on above: Cellulitis of right lower extremity (Primary Dx); Lymphedema of both lower extremities Start: 07-30-2024 End: 07-30-2024 ambulatory MEGAN Fournier [facility] Start: 07-30-2024 End: 08-03-2024 Emergency department patient visit BETTY ROMO [facility] Start: 07-27-2024 End: 07-27-2024 Telephone encounter Megan Blank MD Work Phone: [facility] Start: 07-27-2024 End: 07-27-2024 Emergency department patient visit MEGAN BLANK [facility] Start: 07-14-2024 End: 07-18-2024 ambulatory JO Rg BERTHA [facility] Start: 07-02-2024 End: 07-02-2024 ambulatory [facility] Comment on above: Cellulitis of right lower extremity (Primary Dx) Start: 06-29-2024 End: 06-29-2024 Telephone encounter Antoinette Gu RN [facility] Comment on above: Care Navigation Start: 06-28-2024 End: 07-18-2024 ambulatory [facility] Start: 06-25-2024 End: 06-25-2024 Office outpatient new 20 minutes Jo Hinesey RESORT KEEPER-IMAGING NURSE Work Phone: [facility] Comment on above: Blister of right low er extremity without infection, initial encounter (Primary Dx); Cellulitis of right lower extremity; Lymphedema of both lower extremities Start: 06-25-2024 End: 06-25-2024 ambulatory JO STONE [facility] Start: 06-25-2024 End: 06-25-2024 Office outpatient visit 15 minutes Megan Blank MD Work Phone: [facility] Comment on above: Lymphedema of both l ower extremities (Primary Dx); Essential hypertension; Cellulitis of right lower extremity Start: 06-24-2024 End: 06-24-2024 Office outpatient new 45 minutes Cesar Valle MD Work Phone: [facility] Comment on above: Lymphangitis (Primar y Dx); Lymphedema of both lower extremities Start: 06-17-2024 End: 07-18-2024 ambulatory [facility] Start: 06-16-2024 End: 06-16-2024 Telephone encounter [facility] Start: 06-15-2024 End: 06-15-2024 Office outpatient visit 25 minutes Megan Blank MD Work Phone: [facility] Comment on above: Lymphedema of both l ower extremities (Primary Dx); Essential hypertension; Pure hypercholesterolemia; Cellulitis of right lower extremity Start: 06-10-2024 End: 06-10-2024 Telephone encounter Adriana Weaver RN Work Phone: [facility] Comment on above: Care Navigation Start: 06-10-2024 End: 06-11-2024 Emergency department patient visit [facility] Start: 06-07-2024 End: 06-17-2024 ambulatory [facility] Start: 06-04-2024 End: 06-04-2024 Transitional care manage srvc 14 day discharge Megan Blank MD Work Phone: [facility] Comment on above: Essential hypertensi on (Primary Dx); Pure hypercholesterolemia; Lymphedema of both lower extremities; Cellulitis of right lower extremity; S/P total knee arthroplasty, right Start: 06-02-2024 End: 06-02-2024 ambulatory NANNETTE ANDREAS [facility] Start: 05-31-2024 [facility] Start: 05-28-2024 End: 05-28-2024 Telephone encounter Jessica Plasencia RN [facility] Comment on above: Transition Of Care Start: 05-25-2024 End: 05-28-2024 Emergency department patient visit [facility] Start: 05-25-2024 End: 05-27-2024 Evaluation and management of inpatient MEGAN BLANK [facility] Start: 05-24-2024 End: 05-24-2024 ambulatory [facility] Start: 05-18-2024 End: 05-18-2024 Telephone encounter [facility] Start: 05-12-2024 Evaluation and manag ement of inpatient [facility] Start: 05-12-2024 End: 05-13-2024 Evaluation and management of inpatient [facility] Start: 05-10-2024 End: 05-10-2024 ambulatory [facility] Start: 05-04-2024 End: 05-04-2024 ambulatory [facility] Start: 04-20-2024 End: 04-21-2024 Telephone encounter Megan Blank MD Work Phone: [facility] Start: 04-19-2024 End: 04-19-2024 ambulatory [facility] Start: 03-11-2024 End: 03-11-2024 Office outpatient visit 15 minutes Megan Blank MD Work Phone: [facility] Comment on above: Chronic pain of righ t knee (Primary Dx); Pain of right lower extremity; Lymphedema of both lower extremities; Arthritis of left sacroiliac joint Start: 02-19-2024 Refill [facility] Start: 01-26-2024 End: 01-26-2024 Office outpatient visit 25 minutes Megan Blank MD Work Phone: [facility] Comment on above: Lymphedema of both l ower extremities (Primary Dx); Localized edema; Dyspnea on exertion Start: 01-16-2024 Refill [facility] Comment on above: Lymphedema of both l ower extremities Start: 04-27-2020 End: 04-28-2020 Patient encounter procedure JOHN CHRISTIE [facility] Start: 04-27-2020 End: 04-27-2020 Subsequent hospital visit by physician [facility] Comment on above: Arrived Start: 03-28-2020 End: 03-29-2020 Patient encounter procedure [facility] Start: 03-28-2020 End: 03-28-2020 Subsequent hospital visit by physician Elsa [facility] Comment on above: Arrived Start: 01-24-2020 End: 01-24-2020 Subsequent hospital visit by physician Nelda [facility] Start: 01-21-2020 End: 01-22-2020 Patient encounter procedure [facility] Start: 01-21-2020 End: 01-21-2020 Subsequent hospital visit by physician Nelda [facility] Comment on above: Arrived Start: 01-18-2020 End: 01-18-2020 Subsequent hospital visit by physician Elsa [facility] Start: 01-14-2020 End: 01-15-2020 Patient encounter procedure [facility] Start: 01-14-2020 End: 01-14-2020 Subsequent hospital visit by physician Nelda [facility] Comment on above: Arrived Start: 01-11-2020 End: 01-12-2020 Patient encounter procedure [facility] Start: 01-11-2020 End: 01-11-2020 Subsequent hospital visit by physician Nelad [facility] Comment on above: Arrived Start: 01-07-2020 End: 01-08-2020 Patient encounter procedure [facility] Start: 01-07-2020 End: 01-07-2020 Subsequent hospital visit by physician Nelda [facility] Comment on above: Arrived Start: 01-04-2020 End: 01-05-2020 Patient encounter procedure [facility] Start: 01-04-2020 End: 01-04-2020 Subsequent hospital visit by physician Nelda [facility] Comment on above: Arrived Start: 12-31-2019 End: 01-01-2020 Patient encounter procedure [facility] Start: 12-31-2019 End: 12-31-2019 Subsequent hospital visit by physician Elsa [facility] Comment on above: Arrived Start: 12-28-2019 End: 12-29-2019 Patient encounter procedure [facility] Start: 12-28-2019 End: 12-28-2019 Subsequent hospital visit by physician Nelda [facility] Comment on above: Arrived Start: 12-24-2019 End: 12-24-2019 Subsequent hospital visit by physician Nelda [facility] Start: 12-21-2019 End: 12-22-2019 Patient encounter procedure [facility] Start: 12-21-2019 End: 12-21-2019 Subsequent hospital visit by physician Nelda [facility] Comment on above: Arrived Start: 12-14-2019 End: 12-15-2019 Patient encounter procedure [facility] Start: 12-14-2019 End: 12-14-2019 Subsequent hospital visit by physician Nelda [facility] Comment on above: Arrived Start: 12-10-2019 End: 12-11-2019 Patient encounter procedure [facility] Start: 12-10-2019 End: 12-10-2019 Subsequent hospital visit by physician Nelda [facility] Comment on above: Arrived Procedures Date Procedure Procedure Detail Performing Clinician Start: 07-25-2025 Adult depression scr eening assessment Justino Gaspar MD Work Phone: Start: 07-11-2025 Adult depression scr eening assessment Bo Michelle RESORT KEEPER-IMAGING NURSE Work Phone: Start: 02-21-2025 Adult depression scr eening assessment Bo Michelle RESORT KEEPER-IMAGING NURSE Work Phone: Start: 10-21-2024 Adult depression scr eening assessment Megan Blank MD Work Phone: Start: 09-28-2024 Adult depression scr eening assessment Megan Blank MD Work Phone: Start: 08-09-2024 Adult depression scr eening assessment Megan Blank MD Work Phone: Start: 07-30-2024 Follow-up visit Follow-up MEGAN BLANK Start: 07-30-2024 Adult depression scr eening assessment Megan Blank MD Work Phone: Start: 07-02-2024 NURSING COMMUNICATION M domi Stone RESORT KEEPER-IMAGING NURSE Work Phone: Start: 06-25-2024 Adult depression scr eening assessment Megan Blank MD Work Phone: Start: 06-15-2024 Adult depression scr eening assessment Megan Blank MD Work Phone: Start: 06-04-2024 Adult depression scr eening assessment Megan Blank MD Work Phone: Start: 03-11-2024 Adult depression scr eening assessment Megan Blank MD Work Phone: Start: 01-26-2024 Adult depression scr eening assessment Megan Blank MD Work Phone: Start: 09-29-2023 Adult depression scr eening assessment Ev Headley [facility] Start: 01-06-2023 Colonoscopy Ev scales FLUSH TESTER Plan of Treatment Date Care Activity Detail Author Start: 01-06-2033 Screening for malignant neoplasm of colon [facility] Start: 02-08-2029 DTaP,Tdap and Td Vaccines (2 - Td or Tdap) DTaP,Tdap and Td Vaccines (2 - Td or Tdap) [facility] Start: 02-08-2029 DTaP/Tdap/Td vaccine (2 - Td) DTaP/Tdap/Td vaccine (2 - Td) [facility] Work Phone: Start: 01-06-2028 Screening for malignant neoplasm of colon Colonoscopy [facility] Start: 07-25-2026 Adult BMI Follow Up Plan Adult BMI Follow Up Plan [facility] Start: 07-25-2026 Adult BMI Screening Adult BMI Screen ing [facility] Start: 07-25-2026 Depression Screening Depression Scre [facility] Start: 07-25-2026 Tobacco Screening Tobacco Screening [facility] Start: 07-11-2026 Adult BMI Screening Adult BMI Screen ing [facility] Start: 07-11-2026 Depression Screening Depression Scre ening [facility] Start: 07-11-2026 Tobacco Screening Tobacco Screening [facility] Start: 03-09-2026 Adult BMI Follow Up Plan Adult BMI Follow Up Plan [facility] Start: 03-09-2026 Adult BMI Screening Adult BMI Screen ing [facility] Start: 03-09-2026 Tobacco Screening Tobacco Screening [facility] Start: 02-28-2026 Adult BMI Screening Adult BMI Screen ing [facility] Start: 02-21-2026 Adult BMI Follow Up Plan Adult BMI Follow Up Plan [facility] Start: 02-21-2026 Adult BMI Screening Adult BMI Screen ing [facility] Start: 02-21-2026 Depression Screening Depression Scre ening [facility] Start: 02-21-2026 Tobacco Screening Tobacco Screening [facility] Start: 10-24-2025 End: 10-24-2025 Patient encounter procedure [facility] Start: 10-21-2025 Adult BMI Screening Adult BMI Screen ing [facility] Start: 10-21-2025 Depression Screening Depression Scre ening [facility] Start: 10-21-2025 Fall Risk Screening Fall Risk Screen ing [facility] Start: 10-21-2025 Medicare Annual Wellness Visit Medicare Annual Wellness Visit [facility] Start: 10-21-2025 Tobacco Screening Tobacco Screening [facility] Start: 10-07-2025 Adult BMI Screening Adult BMI Screen ing [facility] Start: 10-07-2025 Tobacco Screening Tobacco Screening [facility] Start: 09-28-2025 Adult BMI Screening Adult BMI Screen ing [facility] Start: 09-28-2025 Depression Screening Depression Scre ening [facility] Start: 09-28-2025 Fall Risk Screening Fall Risk Screen ing [facility] Start: 09-28-2025 Tobacco Screening Tobacco Screening [facility] Start: 09-19-2025 End: 09-19-2025 Patient encounter procedure 09/19/2025 9:30 AM EST Procedure Visit [facility] [address] [place] [phone] Jonathon Dahl, DPTaj [address] [place] [address] [facility] Start: 09-13-2025 End: 09-13-2025 Patient encounter procedure 09/13/2025 11:30 AM EDT Office Visit [facility] [address] [place] [address] Guerda Aggarwal MD [address] [facility] [address] [place] [address] [facility] Start: 08-09-2025 Adult BMI Screening Adult BMI Screen ing [facility] Start: 08-09-2025 Depression Screening Depression Scre ening [facility] Start: 08-09-2025 Fall Risk Screening Fall Risk Screen ing [facility] Start: 08-09-2025 Tobacco Screening Tobacco Screening [facility] Start: 08-01-2025 Adult BMI Screening Adult BMI Screen ing [facility] Start: 07-30-2025 Depression Screening Depression Scre ening [facility] Start: 07-30-2025 Fall Risk Screening Fall Risk Screen ing [facility] Start: 07-30-2025 Tobacco Screening Tobacco Screening [facility] Start: 07-27-2025 Adult BMI Screening Adult BMI Screen ing [facility] Start: 07-27-2025 Tobacco Screening Tobacco Screening [facility] Start: 07-25-2025 End: 07-11-2026 Basic metabolic 2000 panel - Serum or Plasma Basic Metabolic Panel Lab Routine Lymphedema of both lower extremities Cellulitis of right lower leg Cellulitis of left lower leg Expected: 07/25/2025 (Approximate), Expires: 07/11/2026 [facility] Work Phone: Comment on above: Expected: 07/25/2025 (Approximate), Expires: 07/11/2026 Start: 07-25-2025 End: 07-25-2025 Patient encounter procedure 07/25/2025 10:15 AM EDT Office Visit [facility] [address] [place] [phone] Justino Gaspar MD [address] [place] [address] [facility] Start: 07-18-2025 COVID-19 Vaccine ( season) COVID-19 Vaccine ( season) [facility] Start: 07-18-2025 Influenza vaccination [facility] Start: 07-11-2025 End: 07-11-2025 Patient encounter procedure [facility] Comment on above: Arrived Start: 06-25-2025 Adult BMI Screening Adult BMI Screen ing [facility] Start: 06-25-2025 Depression Screening Depression Scre ening [facility] Start: 06-25-2025 Fall Risk Screening Fall Risk Screen ing [facility] Start: 06-25-2025 Tobacco Screening Tobacco Screening [facility] Start: 06-24-2025 Adult BMI Screening Adult BMI Screen ing [facility] Start: 06-24-2025 Tobacco Screening Tobacco Screening [facility] Start: 06-16-2025 End: 06-16-2025 Patient encounter procedure 06/16/2025 2:15 PM EDT Office Visit [facility] [address] [place] [phone] Jonathon Dahl, DPTaj [address] [place] [address] Arrived [facility] Comment on above: Arrived Start: 06-15-2025 Adult BMI Screening Adult BMI Screen ing [facility] Start: 06-15-2025 Depression Screening Depression Scre ening [facility] Start: 06-15-2025 Fall Risk Screening Fall Risk Screen ing [facility] Start: 06-15-2025 Tobacco Screening Tobacco Screening [facility] Start: 06-04-2025 Adult BMI Screening Adult BMI Screen ing [facility] Start: 06-04-2025 Depression Screening Depression Scre ening [facility] Start: 06-04-2025 Fall Risk Screening Fall Risk Screen ing [facility] Start: 06-04-2025 Tobacco Screening Tobacco Screening [facility] Start: 05-26-2025 End: 05-26-2025 Patient encounter procedure 05/26/2025 2:15 PM EDT Procedure Visit [facility] [address] [place] [phone] Jonathon Dahl, DPM [address] [place] [address] [facility] Start: 05-26-2025 Adult BMI Screening Adult BMI Screen ing [facility] Start: 05-25-2025 Tobacco Screening Tobacco Screening [facility] Start: 04-06-2025 End: 04-06-2025 Patient encounter procedure 04/06/2025 8:30 AM EDT Office Visit [facility] [address] [place] [phone] Jonathon Dahl, DP [address] [place], [place] [phone] Arrived [facility] Comment on above: Arrived Start: 03-14-2025 End: 03-14-2026 Echo complete W/Strain Imaging Echo complete W/Strain Imaging Echocardiography Routine Nonrheumatic aortic valve stenosis Expected: 03/14/2025, Expires: 03/14/2026 [facility] Work Phone: Comment on above: Expected: 03/14/2025 , Expires: 03/14/2026 Start: 03-11-2025 Adult BMI Screening Adult BMI Screen ing [facility] Start: 03-11-2025 Depression Screening Depression Scre ening [facility] Start: 03-11-2025 Fall Risk Screening Fall Risk Screen ing [facility] Start: 03-11-2025 Tobacco Screening Tobacco Screening [facility] Start: 03-09-2025 End: 03-09-2025 Patient encounter procedure 03/09/2025 2:30 PM EDT Office Visit [facility] [address] [place] [phone] Bo Michelle, RESORT KEEPER-IMAGING NURSE [address] [place] [address] [facility] Start: 03-08-2025 End: 03-08-2025 Patient encounter procedure 03/08/2025 11:00 AM EDT Office Visit [facility] [address] [facility] [place] [phone] Guerda Aggarwal MD [address] [facility] [address] [place] [address] [facility] Start: 02-28-2025 End: 02-28-2025 Patient encounter procedure 02/28/2025 3:30 PM EDT Office Visit [facility] [address] [place] [phone] Bo Michelle, RESORT KEEPER-IMAGING NURSE [address] [facility] [place] [address] [facility] Start: 02-27-2025 COVID-19 Vaccine () COVID-19 Vaccine () [facility] Start: 02-24-2025 End: 02-24-2025 Patient encounter procedure [facility] Comment on above: Arrived Start: 02-21-2025 End: 02-21-2025 Patient encounter procedure 02/21/2025 2:45 PM EDT [facility] Visit [facility] [address] [place] [phone] Bo Michelle, RESORT KEEPER-IMAGING NURSE [address] [place] [address] [facility] Start: 01-26-2025 End: 01-26-2025 Patient encounter procedure [facility] Comment on above: Arrived Start: 01-25-2025 Adult BMI Screening Adult BMI Screen ing [facility] Start: 01-25-2025 Depression Screening Depression Scre ening [facility] Start: 01-25-2025 Fall Risk Screening Fall Risk Screen ing [facility] Start: 01-25-2025 Tobacco Screening Tobacco Screening [facility] Start: 12-29-2024 End: 12-29-2024 [facility] Comment on above: Arrived Start: 12-13-2024 End: 12-13-2024 Patient encounter procedure 12/13/2024 1:00 PM EST Office Visit [facility] [address] [place] [phone] Jonathon Dahl, DPTaj [address] [place], [place] [phone] Arrived [facility] Comment on above: Arrived Start: 11-24-2024 End: 11-24-2024 Patient encounter procedure [facility] Comment on above: Arrived Start: 10-22-2024 Tobacco Screening Tobacco Screening [facility] Start: 10-21-2024 End: 10-21-2024 Patient encounter procedure 10/21/2024 2:45 PM EST Office Visit [facility] [address] [place] [phone] Megan Blank MD [address] [place], [place] [phone] [facility] Start: 10-21-2024 Adult BMI Screening Adult BMI Screen ing [facility] Start: 10-07-2024 End: 10-07-2024 Patient encounter procedure 10/07/2024 2:30 PM EST Office Visit [facility] [place] [address] [place] [address] Cesar Valle MD [address], [address] [address] [facility] [place] Start: 09-30-2024 End: 09-30-2024 Patient encounter procedure 09/30/2024 10:00 AM EST Office Visit [facility] [address] [facility] [place] [phone] Megan Blank MD [address], [place] [phone] [facility] Start: 09-29-2024 Depression Screening Depression Scre ening [facility] Start: 09-29-2024 Fall Risk Screening Fall Risk Screen ing [facility] Start: 09-29-2024 Medicare Annual Wellness Visit Medicare Annual Wellness Visit [facility] Start: 07-18-2024 COVID-19 Vaccine () COVID-19 Vaccine () [facility] Start: 07-18-2024 Influenza vaccination [facility] Start: 07-14-2024 End: 07-14-2024 Patient encounter procedure 07/14/2024 1:00 PM EDT Office Visit [facility] [address] [place] [phone] Jo Stone, RESORT KEEPER-IMAGING NURSE [address] [place] [address] [facility] Start: 07-02-2024 End: 07-02-2024 ambulatory 07/02/2024 1:30 PM EDT Support Visit [facility] [address] [place] [phone] [facility] Start: 06-25-2024 End: 06-25-2024 Patient encounter procedure 06/25/2024 9:45 AM EDT Office Visit [facility] [address] [place] [phone] Megan Blank MD [address], [place] [phone] [facility] Start: 06-24-2024 End: 06-24-2024 Patient encounter procedure 06/24/2024 11:10 AM EDT Office Visit [facility] [address] [place] [phone] Cesar Valle MD [address], [address] [address] [facility] Start: 06-17-2024 End: 06-17-2024 Patient encounter procedure 06/17/2024 6:[address] [facility] [address] [place] [address] [facility] Start: 06-11-2024 End: 06-11-2024 Patient encounter procedure 06/11/2024 9:[address] [facility] [address] [place] [phone] S/P total knee arthroplasty, right [facility] Comment on above: S/P total knee arthr oplasty, right Start: 06-04-2024 End: 06-04-2024 Patient encounter procedure 06/04/2024 9:45 AM EDT Office Visit [facility] [place] [phone] Megan Blank MD [address] [place] [address] [facility] Start: 03-29-2024 End: 03-29-2024 Patient encounter procedure 03/29/2024 9:00 AM EDT Office Visit [facility] [address] [facility] [place] [phone] Megan Blank MD [address] [place], [place] [phone] [facility] Start: 03-12-2024 End: 03-12-2024 Patient encounter procedure [facility] Start: 03-11-2024 End: 03-11-2025 XR Foot - right 3 Views X-ray foot right minimum 3 views Imaging Routine Pain of right lower extremity Expected: 03/11/2024, Expires: 03/11/2025 [employer] Comment on above: Expected: 03/11/2024 , Expires: 03/11/2025 Start: 03-11-2024 End: 03-11-2025 XR Knee - right 3 Views X-ray knee right 3 views Imaging Routine Chronic pain of right knee Pain of right lower extremity Expected: 03/11/2024, Expires: 03/11/2025 [employer] Work Phone: Comment on above: Expected: 03/11/2024 , Expires: 03/11/2025 Start: 03-11-2024 End: 03-11-2025 XR Pelvis 1 or 2 Views X-ray pelvis 1 or 2 views Imaging Routine Arthritis of left sacroiliac joint Expected: 03/11/2024, Expires: 03/11/2025 [employer] Comment on above: Expected: 03/11/2024 , Expires: 03/11/2025 Start: 02-23-2024 End: 02-23-2024 Patient encounter procedure [facility] Start: 01-26-2024 End: 01-25-2025 Echo complete W/O contrast Echo complete W/O contrast Echocardiography Routine Dyspnea on exertion Expected: 01/26/2024, Expires: 01/25/2025 [employer] Comment on above: Expected: 01/26/2024 , Expires: 01/25/2025 Start: 01-26-2024 End: 01-25-2025 US.doppler Lower extremity vein - bilateral Vas venous duplex lwr bilateral Vascular Ultrasound Routine Lymphedema of both lower extremities Localized edema Expected: 01/26/2024, Expires: 01/25/2025 [employer] Work Phone: Comment on above: Expected: 01/26/2024 , Expires: 01/25/2025 Start: 01-02-2024 COVID-19 Vaccine (5 - 2023-24 season) COVID-19 Vaccine ( season) [facility] Start: 01-29-2023 Adult BMI Follow Up Plan Adult BMI Follow Up Plan [facility] Start: 07-18-2020 Influenza vaccination Flu vaccine (S mitzi Ended) [place], [place] Start: 02-11-2020 End: 02-11-2020 Appointment 02/11/2020 Appointment Physical Therapy Nelda Saucedo PT [facility] Start: 02-08-2020 End: 02-08-2020 Appointment 02/08/2020 Appointment Physical Therapy Nelda Saucedo PT [facility] Start: 02-03-2020 End: 02-03-2020 Appointment 02/03/2020 Appointment Physical Therapy Elsa Rodriguez PTA [facility] Start: 02-01-2020 End: 02-01-2020 Appointment 02/01/2020 Appointment Physical Therapy Elsa Rodriguez PTA [facility] Start: 01-27-2020 End: 01-27-2020 Appointment 01/27/2020 Appointment Physical Therapy Elsa Rodriguez PTA [facility] Start: 01-24-2020 End: 01-24-2020 Appointment 01/24/2020 Appointment Physical Therapy Nelda Saucedo PT [facility] Start: 01-21-2020 End: 01-21-2020 Appointment 01/21/2020 Appointment Physical Therapy Nelda Saucedo PT [facility] Start: 01-18-2020 End: 01-18-2020 Appointment 01/18/2020 [facility] Start: 01-14-2020 End: 01-14-2020 Appointment 01/14/2020 Appointment Physical Therapy Nelda Saucedo PT [facility] Start: 01-11-2020 End: 01-11-2020 Appointment 01/11/2020 Appointment Physical Therapy Nelda Saucedo PT [facility] Start: 01-07-2020 End: 01-07-2020 Appointment 01/07/2020 Appointment Physical Therapy Nelda Saucedo PT [facility] Start: 01-04-2020 End: 01-04-2020 Hospital Encounter [facility] Start: 12-31-2019 End: 12-31-2019 Appointment 12/31/2019 Appointment Physical Therapy Nelda Saucedo, JM [facility] Start: 12-28-2019 End: 12-28-2019 Appointment 12/28/2019 Appointment Physical Therapy Nelda Saucedo PT [facility] Start: 12-24-2019 End: 12-24-2019 Appointment 12/24/2019 Appointment Physical Therapy Nelda Saucedo, [facility] Start: 12-21-2019 End: 12-21-2019 Patient encounter procedure 12/21/2019 Appointment Physical Therapy Nelda Saucedo, [facility] Start: 12-14-2019 End: 12-14-2019 Patient encounter procedure 12/14/2019 Appointment Physical Therapy Nelda Saucedo, [facility] Start: 12-09-2019 Annual Wellness Visi t (AWV) Annual Wellness Visit (AWV) [employer] Phone: Start: 07-18-2019 Influenza vaccination Flu vaccine (# 1) [employer] Phone: Start: 2017 Pneumococcal 65+ yea rs Vaccine (1 of 1 - PPSV23) Pneumococcal 65+ years Vaccine (1 of 1 - PPSV23) [employer] Phone: Start: 2002 Colon cancer screen colonoscopy Colon cancer screen colonoscopy [employer] Phone: Start: 2002 Screening for malignant neoplasm of colon Colon cancer screen colonoscopy [facility] [place] Start: 2002 Shingles Vaccine (1 of 2) Shingles Vaccine (1 of 2) [employer] Phone: Start: 1992 Lipid panel Lipid screen [facility] [employer] [place], [place] Start: 1992 [facility] [employer] Phone: Start: 1970 Adult BMI Follow Up Plan Adult BMI Follow Up Plan [facility] Start: 1963 DTaP/Tdap/Td vaccine (1 - Tdap) DTaP/Tdap/Td vaccine (1 - Tdap) [employer] Phone: Start: 1952 Hepatitis C screen Hepatitis C gordo hunter [facility] Work Phone: Start: 1952 Hepatitis C screening Hepatitis C pa yumiko [facility] [place], [place] Start: 1952 Screening for malignant neoplasm of colon [facility] End: 03-08-2026 CBC W Auto Differential panel - Blood CBC auto differential Lab Routine Iron deficiency anemia, unspecified iron deficiency anemia type 1 Occurrences starting 03/08/2025 until 03/08/2026 [facility] Comment on above: 1 Occurrences starti ng 03/08/2025 until 03/08/2026 End: 03-08-2026 Ferritin [Mass/volume] in Serum or Plasma Ferritin Lab Routine Iron deficiency anemia, unspecified iron deficiency anemia type 1 Occurrences starting 03/08/2025 until 03/08/2026 [facility] Work Phone: Comment on above: 1 Occurrences starti ng 03/08/2025 until 03/08/2026 End: 03-08-2026 Iron and TIBC Iron and TIBC Lab Routine Iron deficiency anemia, unspecified iron deficiency anemia type 1 Occurrences starting 03/08/2025 until 03/08/2026 [facility] Comment on above: 1 Occurrences starti ng 03/08/2025 until 03/08/2026 Immunizations Immunization Date Immunization Notes Care Provider [facility] 08-29-2024 Covid-19, Mrna, Lnp- s, Pf,jair-sucrose,30 Mcg/0.3ml Megan Blank MD Work Phone: [facility] 08-29-2024 influenza, high dose seasonal, preservative-free Megan Blank MD Work Phone: [facility] 08-29-2024 influenza virus vacc ine, unspecified formulation Jonathon Dahl DPM Work Phone: [facility] 09-01-2023 Covid-19, Mrna, Lnp- s, Pf,jair-sucrose,30 Mcg/0.3ml Fall23 Megan Blank MD Work Phone: [facility] 09-01-2023 Influenza, High-dose , Quadrivalent Megan Blank MD Work Phone: [facility] 09-01-2023 RSV, bivalent, prote in subunit RSVpreF, diluent reconstituted, 0.5 mL, PF eMgan Blank MD Work Phone: [facility] 09-01-2023 influenza virus vacc ine, unspecified formulation Asia Olson [place] [facility] 07-05-2023 zoster vaccine recombinant [facility] 04-29-2023 Covid-19, Mrna, Lnp- s, Bivalent, Pf, 10 Mcg/0.2 Ml Ev [facility] 04-29-2023 Covid-19, Mrna, Lnp- s, Bivalent, Pf, 30mcg/0.3 ml [facility] 04-29-2023 Moderna Bivalent Newsome ster Vaccination Jonathon Dahl DPM Work Phone: [facility] 04-29-2023 Modern SARS-CoV-2 50mcg/0.5mL Booster Jonathon Dahl DPM Work Phone: [facility] 04-29-2023 zoster vaccine recombinant [facility] 08-07-2022 Influenza, High-dose , Quadrivalent [facility] 08-01-2021 Influenza, High-dose , Quadrivalent [facility] 01-27-2021 COVID-19, mRNA, LNP- S, PF, 30mcg/0.3mL Dose Ev [facility]ley [facility] 01-06-2021 COVID-19, mRNA, LNP- S, PF, 30mcg/0.3mL Dose Ev [facility] 08-18-2020 Influenza Vaccine, Quadrivalent, Adjuvanted [facility] 11-25-2019 influenza virus vacc ine, unspecified formulation Ev [facility] 11-08-2019 zoster vaccine recombinant Ev Heal[facility]y [facility] 09-15-2019 pneumococcal polysaccharide vaccine, 23 valent [facility] 09-13-2019 influenza virus vacc ine, unspecified formulation Ev [facility] 02-08-2019 tetanus toxoid, redu tea diphtheria toxoid, and acellular pertussis vaccine, adsorbed [facility] 08-08-2018 influenza, injectabl e, quadrivalent, preservative free Ev [facility] 08-08-2018 pneumococcal conjuga te vaccine, 13 valent Ev [facility] 09-29-2017 influenza virus vacc ine, unspecified formulation Ev [facility] 09-06-2010 pneumococcal polysaccharide vaccine, 23 valent Ev [facility] Payers Date Payer Category Payer Medicare [id number] 2023 Medicare (Managed Care) [id number] 2023 Medicare HMO [id number]. [id number] 2023 Medicare [id number] 2021 Medicare [id number]. [id number] 2014 Medicare MEDICARE MEDICAR E PART A AND B xxxxxxxxxxx 2014-Present [phone] [address] [address] [place] [address] xxxxxxxxxxx [id number] 2014 Medicare [id number] 2014 Unknown [employer] M EDICAL M[employer]UAL [address] xxxxxxxxxxxx 2014-Present [phone] [address] [place] [address] xxxxxxxxxxxx [id number]. [id number] 2014 Unknown [id number] 1952 Unknown [id number] 2.16.840.1.613607.3.579.2. 173 1952 Unknown [id number] 2.16.840.1.121389.3.579.2. 173 1952 Unknown [id number] 2.16.840.1.207728.3.579.2. 173 1952 Unknown [id number] 2.16.840.1.898871.3.579.2. 173 1952 Unknown [id number] 2.16.840.1.841992.3.579.2. 173 1952 Unknown [id number] 2.16.840.1.469584.3.579.2. 173 1952 Unknown [id number] 2.16.840.1.357062.3.579.2. 173 1952 Unknown [id number] 2.16.840.1.737506.3.579.2. 173 1952 Unknown [id number] 2.16.840.1.654499.3.579.2. 173 1952 Unknown [id number] 2.16.840.1.909647.3.579.2. 173 1952 Unknown [id number] 2.16.840.1.486701.3.579.2. 173 1952 Unknown [id number] 2.16.840.1.750410.3.579.2. 173 1952 Unknown [id number] 2.16.840.1.817617.3.579.2. 128 1952 Unknown [id number] 2.16.840.1.508568.3.579.2. 128 1952 Unknown [id number] 2.16.840.1.722627.3.579.2. 128 1952 Unknown [id number] 2.16.840.1.644852.3.579.2. 1282 Unknown [id number] 2..840.1.744694.3.579.2. 1285 1952 Unknown [id number] 2..840.1.274892.3.579.2. 1285 1952 Unknown [id number] 2..840.1.672258.3.579.2. 1285 1952 Unknown [id number] 2..840.1.799557.3.579.2. 1285 1952 Unknown [id number] 2..840.1.179421.3.579.2. 1285 1952 Unknown [id number] 2..840.1.564772.3.579.2. 1285 1952 Unknown [id number] 2.840.1.869342.3.579.2. 1285 1952 Unknown [id number] 2.840.1.504661.3.579.2. 1285 1952 Unknown [id number] 2.840.1.774001.3.579.2. 1285 1952 Unknown [id number] 2.840.1.289553.3.579.2. 1285 1952 Unknown [id number] 2.840.1.453731.3.579.2. 1285 1952 Unknown [id number] 2.840.1.621442.3.579.2. 1285 1952 Unknown [id number] 2.840.1.906475.3.579.2. 1285 1952 Unknown [id number] 2..840.1.133722.3.579.2. 1285 1952 Unknown [id number] 2.840.1.364107.3.579.2. 1285 1952 Unknown [id number] 2.16.840.1.107919.3.579.2. 1285 1952 Unknown [id number] 2..840.1.534133.3.579.2. 1285 1952 Unknown [id number] 2..840.1.504934.3.579.2. 1285 1952 Unknown [id number] 2.840.1.305094.3.579.2. 1285 1952 Unknown [id number] .840.1.722746.3.579.2. 1285 1952 Unknown [id number] .840.1.431019.3.579.2. 1285 1952 Unknown [id number] .0.1.874638.3.579.2. 1285 1952 Unknown [id number] .840.1.911599.3.579.2. 1285 1952 Unknown [id number] .840.1.893080.3.579.2. 1285 1952 Unknown [id number] .840.1.737572.3.579.2. 1285 1952 Unknown [id number] .840.1.953954.3.579.2. 1285 1952 Unknown [id number] .840.1.680293.3.579.2. 1285 1952 Unknown [id number] 2.840.1.117691.3.579.2. 1258 1952 Unknown [id number] 2..840.1.625308.3.579.2. 1258 1950 Unknown [id number] 1258 1950 Unknown [id number] 1950 Unknown [id number] 1258 1950 Unknown [id number] 1258 1950 Unknown [id number] 1258 1950 Unknown [id number] 1258 1950 Unknown [id number]. 1258 1950 Unknown [id number] 1259 Social History Date Type Detail Facility Tobacco smoking stat [facility] Unknown if ever smoked [employer] Phone: Start: 1950 Sex Assigned At Not on file [facility] [employer] Phone: Start: 09-09-2022 End: 05-12-2023 Tobacco smoking status AZIS Never smoked tobacco [facility] Start: 09-09-2022 End: 05-12-2023 Tobacco use and exposure Smokeless tobacco non-user [facility] Start: 08-12-2024 End: 07-11-2025 Alcoholic beverage intake Ex-drinker (finding) [facility] Start: 08-12-2024 End: 07-11-2025 History of Social function [facility] Start: 08-12-2024 End: 07-11-2025 Tobacco use panel [facility] Start: 10-21-2024 End: 07-25-2025 Alcoholic beverage intake Current non-drinker of alcohol (finding) [facility] Has the [employer], [employer], or water [employer] threatened to shut off services in your home in past 12Mo No [facility] Frequency of Communication with Friends and Family Twice a week [facility] Start: 12-05-2019 Education 14 [facility] Start: 06-22-2015 Sex Male (finding) [facility] Medical Equipment Procedure Code Equipment Code Equipment Origin al Text Equipment Identifier Dates Cmnt Bn Bio 40gm Rpl [id number] - [id number] Start: 07-14-2019 Mesh Pariten Ds [id number] X1 Rpl [id number] Cmt - [id number] Start: 12-15-2019 Cmpt Fem 7 Kn Rt Crcte Rtn Gns - [id number] Start: 07-14-2019 Kn Sn Std Ps Cr Inc Mtn Construct - [id number] Start: 07-14-2019 Oval Harriett Ii Resurfacing Patellar Component [id number] Start: 07-14-2019 Bsplt Tib 5 Rt K n Gnss Ii Npor - [id number] Start: 07-14-2019 Legion Cr Xlpe H igh Flexion Articular Insert [id number] Start: 07-14-2019 Goals Date Patient Goal Desired Activity /State Personal health goal Comment on above: Formatting of this n ote might be different from the original. Evaluation of progress towards goal: feeling better, hopes to DC to home today Personal health goal Comment on above: Formatting of this n ote might be different from the original. Evaluation of progress towards goal: [facility] will [facility] for [facility] Clinical Notes 01-16-2024 to 07-25-2025 Justino Gaspar MD - 07/25/2025 10:15 AM Nannette Dahl DPM - 07/11/2025 11:00 AM EDTPatient InstructionsBo Michelle APRN-STEPHEN - 07/11/2025 9:30 AM EDTPatient Instructions Note Date & Type Note Facility 07-25-2025 History of Present illness Narrative [address] [facility] [id number] Patient: Royce Delaney Date of : 1950 Encounter Date: 07/25/2025 History of Present Illness: The patient is a 75 y.o. male, an established patient, and is here for Chief Complaint Patient presents with Follow-up Insomnia . Redness of the legs is partially better. Taking lasix. Follow-up Pertinent negatives include no abdominal pain, arthralgias, chest pain, chills, coughing, fever, rash, sore throat or vomiting. Insomnia Pertinent negatives include no abdominal pain, arthralgias, chest pain, chills, coughing, fever, rash, sore throat or vomiting. Past Medical, Family, and Social History Update: The following portions of the patient's history were reviewed and updated as appropriate: allergies, current medications, past family history, past medical history, past social history, past surgical history and problem list. Past Medical History: Diagnosis Date Anemia Arrhythmia Back pain 20 YEARS AGO Chronic pain disorder DJD (degenerative joint disease) Fractures right ribs GERD (gastroesophageal reflux disease) HL (hearing loss) mild HLD (hyperlipidemia) HTN (hypertension) in the past, no current medication Irregular heart beat Low back pain Morbid obesity (CMS-HCC) Obesity STEFF (obstructive sleep apnea) bipap Pain Pneumonia 2014 RLS (restless legs syndrome) Varicella ASA KID Visual impairment glasses Past Surgical History: Procedure Laterality Date ANKLE ARTHROSCOPY Right COLONOSCOPY N/A 01/06/2023 Performed by Herman Haley DO at [facility] COLONOSCOPY N/A 10/12/2018 Performed by Sumit Mackey MD at [facility] DAVINCI REPAIR HERNIA VENTRAL WITH MESH N/A 12/15/2019 Performed by Ramon Monson DO at [facility] EYE SURGERY JOINT REPLACEMENT Left 2009 dr. booth knee REPLACEMENT TOTAL JOINT RIGHT KNEE Right 07/14/2019 Performed by Chico Sutton MD at [facility] REPLACEMENT TOTAL KNEE Right 04/25/2023 SINUS SURGERY yrs ago TONSILLECTOMY AND ADENOIDECTOMY Current Outpatient Medications Medication Sig Dispense Refill aspirin 81 mg Take 1 tablet (81 mg total) by mouth in the morning. atorvastatin (LIPITOR) 10 mg tablet TAKE ONE TABLET BY MOUTH ONCE NIGHTLY 90 tablet 1 ferrous sulfate 325 (65 FE) MG tablet Take 1 tablet (325 mg total) by mouth in the morning. 30 tablet 3 pramipexole (MIRAPEX) 1.5 mg tablet TAKE 1 TABLET BY MOUTH 3 TIMES A DAY 270 tablet 1 doxycycline (VIBRAMYCIN) 100 mg capsule Take 1 capsule (100 mg total) by mouth in the morning and 1 capsule (100 mg total) before bedtime. Do all this for 7 days. 14 capsule 0 furosemide (LASIX) 40 mg tablet Take 1 tablet (40 mg total) by mouth every 12 (twelve) hours. 90 tablet 3 mupirocin (BACTROBAN) 2 % ointment Apply 1 Application topically 3 (three) times a day. (Patient not taking: Reported on 07/25/2025) 22 g 0 omeprazole (PriLOSEC) 20 mg capsule Take 1 capsule (20 mg total) by mouth every morning before breakfast. 90 capsule 1 No current facility-administered medications for this visit. (All medications reviewed and updated by provider since last office visit or hospitalization) Allergies: Keflex [cephalexin] Tobacco History: Social History Tobacco Use Smoking Status Never Smokeless Tobacco Never (If patient a smoker, smoking cessation counseling offered) Social History: Social History Substance and Sexual Activity Alcohol Use No Review of Systems: Review of Systems Constitutional: Negative for chills and fever. HENT: Negative for ear pain and sore throat. Eyes: Negative for pain and visual disturbance. Respiratory: Negative for cough and shortness of breath. Cardiovascular: Negative for chest pain and palpitations. Gastrointestinal: Negative for abdominal pain and vomiting. Genitourinary: Negative for dysuria and hematuria. Musculoskeletal: Negative for arthralgias and back pain. Skin: Negative for color change and rash. Neurological: Negative for seizures and syncope. Psychiatric/Behavioral: The patient has insomnia. All other systems reviewed and are negative. Physical Exam: BP 110/72 Pulse 80 Resp 20 Wt (!) 171.5 kg (378 lb) SpO2 97% BMI 51.25 kg/m Physical Exam Constitutional: General: He is not in acute distress. Appearance: He is well-developed. HENT: Head: Normocephalic. Right Ear: External ear normal. Left Ear: External ear normal. Nose: Nose normal. Eyes: Conjunctiva/sclera: Conjunctivae normal. Pupils: Pupils are equal, round, and reactive to light. Cardiovascular: Rate and Rhythm: Normal rate and regular rhythm. Heart sounds: Normal heart sounds. No murmur heard. Pulmonary: Effort: Pulmonary effort is normal. Breath sounds: Normal breath sounds. No wheezing. Abdominal: General: Bowel sounds are normal. Palpations: Abdomen is soft. There is no mass. Tenderness: There is no abdominal tenderness. Musculoskeletal: General: Normal range of motion. Cervical back: Normal range of motion. Right lower leg: Edema present. Left lower leg: Edema present. Comments: Chronic lymphedema changes Warmth and ternderness of the lower 1/2 of the legs bilaterally. Lymphadenopathy: Cervical: No cervical adenopathy. Skin: General: Skin is warm and dry. Findings: No rash. Neurological: Mental Status: He is alert. Cranial Nerves: No cranial nerve deficit. Coordination: Coordination normal. Psychiatric: Behavior: Behavior normal. Lab Results Component Value Date GLU 108 (H) 08/02/2024 CALCIUM 8.3 (L) 08/02/2024 SODIUM 137 08/02/2024 K 3.7 08/02/2024 CO2 24 08/02/2024 BUN 18 08/02/2024 CREATININE 0.81 08/02/2024 Lab Results Component Value Date WBC 6.9 04/27/2025 HGB 12.5 (L) 04/27/2025 HCT 38.0 (L) 04/27/2025 MCV 82 04/27/2025 PLT 271 04/27/2025 Lab Results Component Value Date HGBA1C 6.3 (A) 06/21/2019 Assessment and Plan: Royce was seen today for follow-up and insomnia. Diagnoses and all orders for this visit: Cellulitis of right lower leg - doxycycline (VIBRAMYCIN) 100 mg capsule; Take 1 capsule (100 mg total) by mouth in the morning and 1 capsule (100 mg total) before bedtime. Do all this for 7 days. Cellulitis of left lower leg - doxycycline (VIBRAMYCIN) 100 mg capsule; Take 1 capsule (100 mg total) by mouth in the morning and 1 capsule (100 mg total) before bedtime. Do all this for 7 days. Lymphedema of both lower extremities - furosemide (LASIX) 40 mg tablet; Take 1 tablet (40 mg total) by mouth every 12 (twelve) hours. -encouraged to resume follow up with lymphedema clinic. -Continue use of pumps. Other orders - omeprazole (PriLOSEC) 20 mg capsule; Take 1 capsule (20 mg total) by mouth every morning before breakfast. Patient noted to have elevated BMI and the following intervention(s) were applied: encouragement to exercise. Follow-up: 3 months JUSTINO GASPAR MD documented in this encounter [employer] 07-11-2025 History of Present illness Narrative Images from the original note were not included. Subjective Patient ID: Royce Delaney is a 75 y.o. male who presents for Nail care (Royce Delaney is a 75 y.o. male who presents for Nail care. Plantar wart left heel pain at this time. Patient relates he saw PCP today for cellulitis BL legs. He has been referred to return to Lymphedema clinic, starting back on his water pill and doxycycline. SS: 15). HPI Patient presents requesting nail care. Chief complaint: Thickened, discolored, ingrown and deformed fungal toenails involving multiple digits. Problematic/symptomatic again over the past several weeks; describing pressure discomfort with shoe gear, catching and snagging on clothing, bed sheets etc.. Denies bleeding or drainage. Chronic toenail deformity, multiple years duration. Self care measures are difficult, ineffective and not practical; increasing risk exposure. Family members unable to provide affective care. Palliative care measures have provided favorable transient symptom relief. Risk factors: Prosthetic joints. Lymphedema. Mobility, flexibility and dexterity restraints. Toenail deformity. Digital and/or shoe trauma and related complications. Review of Systems Constitutional: Negative for activity [...] NWO TOTAL KNEE ARTHROPLASTY Left LT TKA- DR STEPANIC TOTAL KNEE ARTHROPLASTY Left 05/09/2024 Family [...] seconds. 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 All 10 toenails are elongated. Hallux nails bilaterally with notable pincer deformity and incurvated margins. Hyperkeratotic pinch callus plaques present plantar medial IPJ of the hallux bilaterally, right 2nd, 3rd toes. Minimally tender; non-inflamed; without ulcerative changes. Slightly raised IPK lesion plantar aspect of the left heel, without ulcerative changes. Minimally inflamed, minimally tender. Neurological: Mental Status: He is alert. Comments: No loss of protective sensation, gross sensation intact. Psychiatric: Mood and Affect: Mood normal. Behavior: Behavior normal. Assessment/Plan No diagnosis found. 1. 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 2. Endoprosthesis bilateral knees. 3. Chronic, stable lymphedema both lower extremities; recent onset cellulitis; placed on oral antibiotic therapy earlier today. 4. Status post revisional endoprosthesis right knee. Care plan: Patient remains well satisfied with a conservative and palliative care approach; expressing no interest in oral or topical therapy. Recommend Amlactin therapy daily. We will start oral antibiotic therapy today. Encourage compliance with elevation, gradient compression lymphedema pumps (he has at home); and compression sock therapy as able to do so. Follow up: 10 weeks, sooner if any problems arise. Procedure: Toenail debridement: Aseptic technique: Hand and power instrumentation: Onychodebridement in length and thickness, with curettage of any cryptotic margins, all periungual debris; providing effective symptom and pressure relief; reducing shoe and digital trauma. This note was created with the assistance of a speech recognition program. While intending to generate a timely document that accurately reflects the content of the visit, no guarantee can be provided that every grammatical or spelling mistake has been or will be identified or corrected. Thank you for your understanding. Jonathon Dahl DPM documented in this encounter [facility] 07-11-2025 Instructions Jonathon Dahl DPM - 07/11/2025 11:00 AM EDT As noted documented in this encounter [facility] 07-11-2025 History of Present illness Narrative Images from the original note were not included. [id number] [facility] [id number] SUBJECTIVE: Patient ID: Royce Delaney is a 75 y.o. male. Patient presents to the office with complaints of lymphedema and redness to bilateral lower legs. Has history of lymphedema to bilateral lower legs. He has not been able to use his compression boots and he has lasix but has not been taking that as well. 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 The following portions of the patient's history were reviewed and updated as appropriate: allergies, current medications, past family history, past medical history, past social history, past surgical history and problem list. REVIEW OF SYSTEMS: Review of Systems Constitutional: Negative for fatigue, fever and unexpected weight change. HENT: Negative for congestion, ear pain, sinus pressure, sinus pain and sore throat. Eyes: Negative for photophobia, pain, discharge and visual disturbance. Respiratory: Negative for cough and shortness of breath. Cardiovascular: Positive for leg swelling. Negative for chest pain and palpitations. Gastrointestinal: Negative for abdominal pain, diarrhea, nausea and vomiting. Endocrine: Negative for polydipsia, polyphagia and polyuria. Genitourinary: Negative for difficulty urinating, frequency, hematuria and urgency. Musculoskeletal: Negative for arthralgias, gait problem, joint swelling and neck pain. Skin: Negative for pallor and rash. Neurological: Negative for dizziness, weakness, light-headedness and numbness. Psychiatric/Behavioral: Negative for sleep disturbance. The patient is not nervous/anxious. PHYSICAL EXAMINATION: Vitals: 07/11/25 0926 BP: 130/86 Pulse: 64 Resp: 20 SpO2: 99% Weight: (!) 169.2 kg (373 lb) Physical Exam Constitutional: Appearance: He is well-developed. HENT: Head: Normocephalic and atraumatic. Right Ear: External ear normal. Left Ear: External ear normal. Eyes: Conjunctiva/sclera: Conjunctivae normal. Pupils: Pupils are equal, round, and reactive to light. Cardiovascular: Rate and Rhythm: Normal rate and regular rhythm. Heart sounds: Normal heart sounds. Pulmonary: Effort: Pulmonary effort is normal. Breath sounds: Normal breath sounds. Musculoskeletal: Cervical back: Normal range of motion. Right lower leg: Edema present. Left lower leg: Edema present. Skin: General: Skin is warm and dry. Neurological: Mental Status: He is alert and oriented to person, place, and time. Psychiatric: Mood and Affect: Mood normal. ASSESSMENT/PLAN: Royce was seen today for cellulitis. Diagnoses and all orders for this visit: Lymphedema of both lower extremities - Ambulatory referral to Lymphedema Clinic ([facility]); Future - Basic Metabolic Panel; Future Cellulitis of right lower leg - Basic Metabolic Panel; Future Cellulitis of left lower leg - Basic Metabolic Panel; Future Other orders - doxycycline (VIBRAMYCIN) 100 mg capsule; Take 1 capsule (100 mg total) by mouth in the morning and 1 capsule (100 mg total) before bedtime. Do all this for 10 days. Follow-up: Restart 40mg lasix daily Bmp in two weeks Doxycyline 100mg bid for ten days-watch out for sun Referral back to lymphedema clinic Follow up next week MARISA Chao 07/11/25 0949 documented in this encounter [facility] 06-16-2025 History of Present illness Narrative Images from the original note were not included. Subjective Patient ID: Royce Delaney is a 75 y.o. male who presents for Plantar Warts (Established patient presents today for wart fuv of the left heel. Patient states it's very bothersome. SS: 15). HPI Chief complaint: Progressively painful callus or corn plantar surface of the left heel. 4-5 weeks duration, impacting ADLs and his ability to walk comfortably; to the point of a notable limp. Denies precipitating injury or trauma. Denies bleeding or drainage. Progressive symptoms again described as like walking on a stone . Denies streaking or constitutional symptoms. Review of [...] NWO TOTAL KNEE ARTHROPLASTY Left LT TKA- DR BOOTH TOTAL KNEE ARTHROPLASTY Left 05/09/2024 Family History [...] Comments: 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 Hyperkeratotic pinch callus plaques present plantar medial IPJ of the hallux bilaterally, right 2nd, 3rd toes. Focused exam left heel: Well-defined, prominent hyperkeratotic, deeply nucleated PPD/verrucoid lesion; located central plantar surface [...] normal. Assessment/Plan No diagnosis found. 1. 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 2. Endoprosthesis bilateral knees. 3. Chronic, stable lymphedema both lower extremities. 4. Status post revisional endoprosthesis right knee. 5. Progressively symptomatic PPD/verrucoid lesion left heel. Review of clinical findings, differential diagnosis of symptomatic lesion, etiology and contributing/aggravating factors, response to date, treatment strategy, rationale and objectives. Left foot: Aseptic technique: # 15 scalpel: Sharp debridement and enucleation of symptomatic PPD/verrucoid lesion as described. Offloading: Modified Powerstep orthotic. Patient noted distinct relief upon leaving the clinic. Encourage compliance with Amlactin therapy and urea cream 40% daily. Discourage any barefoot walking. Procedure: LEFT FOOT: Aseptic technique: # 15 scalpel: Sharp debridement and enucleation of symptomatic PPD/verrucoid lesion; to the level of dermal bleeding; excising deeply nucleated porokeratotic core; reducing direct and indirect pressure and providing favorable symptom relief. Phenol hemostasis/chemo cautery. 60% salicylic acid packing followed by occlusive dressing. Well tolerated. This note was created with the assistance of a speech recognition program. While intending to generate a timely document that accurately reflects the content of the visit, no guarantee can be provided that every grammatical or spelling mistake has been or will be identified or corrected. Thank you for your understanding. Jonathon Dahl DPM documented in this encounter [facility] 06-16-2025 Instructions Jonathon Dahl DPM - 06/16/2025 2:15 PM EDT As noted documented in this encounter [facility] 04-28-2025 Miscellaneous Notes Patient wants medication sent to a local pharmacy documented in this encounter [facility] 04-28-2025 Telephone encounter Note Patient wants medication sent to a local pharmacy [facility] 04-27-2025 Miscellaneous Notes Please let him know that he remains iron deficient and mildly anemic This can cause RLS symptoms. He told me had been taking oral iron supplements He needs to follow up with his PCP, to determine causes/work up He may benefit from iron infusions/referral to hematology but most appropriate to start with PCP office Images from the original note were not included. Climate Change Risk Assessor spoke with patient about lab results. Let patient know the following from TARUN Aggarwal MD Physician Signed [id number] Please let him know that he remains iron deficient and mildly anemic This can cause RLS symptoms. He told me had been taking oral iron supplements He needs to follow up with his PCP, to determine causes/work up He may benefit from iron infusions/referral to hematology but most appropriate to start with PCP office Patient understood and said he would follow up with his PCP. Rx sent for oral iron pill. Will recheck after 6 mo. Please schedule annual visit. documented in this encounter [facility] 04-27-2025 Telephone encounter Note Please let him know that he remains iron deficient and mildly anemic This can cause RLS symptoms. He told me had been taking oral iron supplements He needs to follow up with his PCP, to determine causes/work up He may benefit from iron infusions/referral to hematology but most appropriate to start with PCP office [employer] Work Phone: 04-27-2025 Telephone encounter Note Images from the original note were not included. Climate Change Risk Assessor spoke with patient about lab results. Let patient know the following from TARUN Aggarwal MD Physician Signed [id number] Please let him know that he remains iron deficient and mildly anemic This can cause RLS symptoms. He told me had been taking oral iron supplements He needs to follow up with his PCP, to determine causes/work up He may benefit from iron infusions/referral to hematology but most appropriate to start with PCP office Patient understood and said he would follow up with his PCP. [facility] 04-27-2025 Telephone encounter Note Rx sent for oral iron pill. Will recheck after 6 mo. Please schedule annual visit. [employer] Work Phone: 04-06-2025 History of Present illness Narrative Images from the original note were not included. Subjective Patient ID: Royce Delaeny is a 75 y.o. male who presents for Callouses (Royce Delaney is a 75 y.o. male. Pt is here today for callous care, he is unable to reach his feet to trim the nails. He is also dealing with cellulitis RLE but is being treated for that elsewhere/SS: 15). HPI Chief complaint: Progressively painful callus or wart plantar surface of the left heel of several weeks duration. Denies precipitating injury or trauma. Denies bleeding or drainage. Progressive symptoms impacting ADLs, weight-bearing and/or walking activity to the point of a distinct limp; patient comments feels like I am walking on a stone . Denies streaking or constitutional symptoms. 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 Hyperkeratotic pinch callus plaques present plantar medial IPJ of the hallux bilaterally, right 2nd, 3rd toes. Focused exam left heel: Well-defined, prominent hyperkeratotic IPK-appearing lesion; located central plantar surface of the heel. Acutely tender to direct pressure; locally inflamed, non-fluctuant. There is no distinct PPD/verrucoid lesion identified. Unremarkable for foreign body, pigment or verrucous change. Unremarkable for ulcerative changes. There remains diffuse keratosis along the plantar aspect of both heels. Neurological: Mental Status: He is alert. Comments: No loss of protective sensation, gross sensation intact. Psychiatric: Mood and Affect: Mood normal. Behavior: Behavior normal. Assessment/Plan No diagnosis found. 1. 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 2. Endoprosthesis bilateral knees. 3. Chronic, stable lymphedema both lower extremities. 4. Status post revisional endoprosthesis right knee. 5. Progressively symptomatic IPK/sub lesional bursitis left heel; without distinct PPD/verrucoid lesion. Review of clinical findings, differential diagnosis of symptomatic lesion, etiology and contributing/aggravating factors, response to date, treatment strategy, rationale and objectives. Left foot: Aseptic technique: # 15 scalpel: Sharp debridement of symptomatic IPK lesion; reducing direct and indirect pressure; providing favorable symptom relief. Offloading: Modified new balance insole. Patient noted distinct relief upon leaving the clinic. Recommend urea cream 40% each night to the heel areas. Encourage compliance with Amlactin therapy daily. Discourage any barefoot walking. Procedure: This note was created with the assistance of a speech recognition program. While intending to generate a timely document that accurately reflects the content of the visit, no guarantee can be provided that every grammatical or spelling mistake has been or will be identified or corrected. Thank you for your understanding. Jonathon Dahl DPM documented in this encounter [facility] 04-06-2025 Instructions Jonathon Dahl DPM - 04/06/2025 8:30 AM EDT As noted documented in this encounter [facility] 03-09-2025 History of Present illness Narrative Images from the original note were not included. [id number] [place] [id number] SUBJECTIVE: Patient ID: Royce Delaney is a 75 y.o. male. Patient presents to the office for follow up for cellulitis and lymphedema. Cellulitis has improved and he has an appointment for treatment for lymphedema next week. Follow-up Pertinent negatives include no abdominal pain, arthralgias, chest pain, congestion, coughing, fatigue, fever, joint swelling, nausea, neck pain, numbness, rash, sore throat, vomiting or weakness. The following portions of the patient's history were reviewed and updated as appropriate: allergies, current medications, past family history, past medical history, past social history, past surgical history and problem list. REVIEW OF SYSTEMS: Review of Systems Constitutional: Negative for fatigue, fever and unexpected weight change. HENT: Negative for congestion, ear pain, sinus pressure, sinus pain and sore throat. Eyes: Negative for photophobia, pain, discharge and visual disturbance. Respiratory: Negative for cough and shortness of breath. Cardiovascular: Positive for leg swelling. Negative for chest pain and palpitations. Gastrointestinal: Negative for abdominal pain, diarrhea, nausea and vomiting. Endocrine: Negative for polydipsia, polyphagia and polyuria. Genitourinary: Negative for difficulty urinating, frequency, hematuria and urgency. Musculoskeletal: Negative for arthralgias, gait problem, joint swelling and neck pain. Skin: Negative for pallor and rash. Neurological: Negative for dizziness, weakness, light-headedness and numbness. Psychiatric/Behavioral: Negative for sleep disturbance. The patient is not nervous/anxious. PHYSICAL EXAMINATION: Vitals: 03/09/25 1444 BP: 130/74 Pulse: 68 Resp: 18 SpO2: 97% Weight: (!) 164.7 kg (363 lb) Physical Exam Constitutional: Appearance: He is well-developed. HENT: Head: Normocephalic and atraumatic. Right Ear: External ear normal. Left Ear: External ear normal. Eyes: Conjunctiva/sclera: Conjunctivae normal. Pupils: Pupils are equal, round, and reactive to light. Cardiovascular: Rate and Rhythm: Normal rate and regular rhythm. Heart sounds: Normal heart sounds. Pulmonary: Effort: Pulmonary effort is normal. Breath sounds: Normal breath sounds. Musculoskeletal: General: Normal range of motion. Cervical back: Normal range of motion. Right lower leg: Edema present. Left lower leg: Edema present. Skin: General: Skin is warm and dry. Neurological: Mental Status: He is alert and oriented to person, place, and time. Psychiatric: Mood and Affect: Mood normal. ASSESSMENT/PLAN: Royce was seen today for follow-up. Diagnoses and all orders for this visit: Lymphedema of both lower extremities Cellulitis of right lower leg Follow-up: Keep appointments with specialist Follow up with our office as scheduled Patient noted to have elevated BMI and the following intervention(s) were applied: encouragement to exercise. MARISA Chao 03/09/25 1512 documented in this encounter [facility] 03-09-2025 Miscellaneous Notes PAP mask and supplies order with supportive documentation faxed to [facility]. documented in this encounter [facility] 03-09-2025 Telephone encounter Note PAP mask and supplies order with supportive documentation faxed to [facility]. [facility] 03-08-2025 History of Present illness Narrative Images from the original note were not included. Images from the original note were not included. CHIEF COMPLAINT: Royce Delaney is a 75 y.o. male who presents to [facility] in follow-up for STEFF and RLS The patient was unaccompanied. INTERVAL EVENTS Since last seen, Mr. Delaney reports that he is in need of supplies. He is using CPAP with an Air touch mask. He is not snoring with CPAP. 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 He wakes overnight to care for her. He is dozing during the day sometimes. PAP improves sleep quality His mask is leaky but he notes it is a year old and wearing out. Reports RLS has been controlled with Mirapex, prescribed through PCP. He is taking 1.5 mg twice a day. Denies sleep attacks and impulsive/compulsive behaviors Is going to lymphedema clinic for his legs and is also being treated for chronic cellulitis. He has been diagnosed with iron deficiency and his last CBC showed anemia. He is taking iron BT: 9:30 Falls asleep quickly Up for day 6-6:30 am Sits in chair overnight and fall asleep 1am, reciner [place] Sleepiness Scale: Sitting and Reading: (!) Moderate Chance Watching TV: Slight Chance Sitting inactive in a public place (theater, meeting): Slight Chance As a passenger in a car for an hour without a break: (!) High Chance Lying down in the afternoon to rest: Slight Chance Sitting and talking to someone: Never Sitting quietly after lunch (without alcohol): Slight Chance In a car, while stopped for a few minutes in traffic: Never Total: 9 I personally reviewed this data PAST MEDICAL HISTORY: Patient Active Problem List Diagnosis STEFF (obstructive sleep apnea) Dyspnea Non morbid obesity Essential hypertension Hyperlipidemia Gastroesophageal reflux disease without esophagitis Encounter for colonoscopy due to history of colonic polyp Adenomatous polyp of transverse colon 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 Primary osteoarthritis of right knee Knee mass, right Lymphedema of both lower extremities 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 Restless leg syndrome Psychophysiological insomnia Chronic midline low back pain without sciatica Weakness of both lower limbs Cervical stenosis of spinal canal Muscle weakness Balance problems Excessive daytime sleepiness Neuralgia Cellulitis of right lower extremity Mechanical loosening of internal right knee prosthetic joint, initial encounter Presence of right artificial knee joint S/P total knee arthroplasty, right Failure of outpatient treatment Bilateral leg edema Moderate aortic stenosis Lymphangitis Iron deficiency anemia, unspecified COPD (chronic obstructive pulmonary disease) (CMS-HCC) Cellulitis of right lower leg Arthritis of left sacroiliac joint Past Medical History: Diagnosis Date Anemia Arrhythmia Back pain 20 YEARS AGO Chronic pain disorder DJD (degenerative joint disease) Fractures right ribs GERD (gastroesophageal reflux disease) HL (hearing loss) mild HLD (hyperlipidemia) HTN (hypertension) in the past, no current medication Irregular heart beat Low back pain Morbid obesity (CMS-HCC) Obesity STEFF (obstructive sleep apnea) bipap Pain Pneumonia 2014 RLS (restless legs syndrome) Varicella ASA KID Visual impairment glasses Past Surgical History: Procedure Laterality Date ANKLE ARTHROSCOPY Right COLONOSCOPY N/A 01/06/2023 Performed by Herman Haley DO at [facility] COLONOSCOPY N/A 10/12/2018 Performed by Sumit Mackey MD at [facility] REPAIR HERNIA VENTRAL WITH MESH N/A 12/15/2019 Performed by Ramon Monson DO at [facility] EYE SURGERY JOINT REPLACEMENT Left 2009 dr. booth knee REPLACEMENT TOTAL JOINT RIGHT KNEE Right 07/14/2019 Performed by Chico Sutton MD at [facility] REPLACEMENT TOTAL KNEE Right 04/25/2023 SINUS SURGERY yrs ago TONSILLECTOMY AND ADENOIDECTOMY ALLERGIES: Allergies Allergen Reactions Keflex [Cephalexin] pain MEDICATIONS: Current Outpatient Medications on File Prior to Visit Medication Sig Dispense Refill aspirin 81 mg Take 1 tablet (81 mg total) by mouth in the morning. atorvastatin (LIPITOR) 10 mg tablet Take 1 tablet (10 mg total) by mouth nightly. 90 tablet 1 furosemide (LASIX) 40 mg tablet Take 1 tablet (40 mg total) by mouth daily. 90 tablet 3 mupirocin (BACTROBAN) 2 % ointment Apply 1 Application topically 3 (three) times a day. 22 g 0 omeprazole (PriLOSEC) 20 mg capsule Take 1 capsule (20 mg total) by mouth nightly. 90 capsule 1 pramipexole (MIRAPEX) 1.5 mg tablet Take 1 tablet (1.5 mg total) by mouth 3 (three) times a day. 270 tablet 1 ferrous sulfate 325 (65 FE) mg tablet Take 1 tablet (325 mg total) by mouth nightly. (Patient not taking: Reported on 03/08/2025) 30 tablet 3 No current facility-administered medications on file prior to visit. PHYSICAL EXAMINATION: BP 128/73 (BP Site: Right Arm, BP Postition: Sitting) Pulse 80 Ht 182.9 cm (6' 0.01 ) Wt (!) 163.3 kg (360 lb) SpO2 95% BMI 48.81 kg/m General appearance: no acute distress. Eyes: no conjunctival erythema, no scleral icterus. Ears, Nose, Mouth and Throat: external ears unremarkable, external nose and mouth unremarkable Neck: trachea position midline. Respiratory: normal work of breathing Skin: No rash/ lesions/ulcers/ induration/subcutaneous nodules in visible regions. Neurologic: face symmetric at rest and activation, no dysarthria, no tremor or abnormal movements Mental Status: Cognitive: Alert and oriented. Insight good. Judgment good. DATA: I personally reviewed the following: Lab Results Component Value Date WBC 6.2 08/02/2024 HGB 11.4 (L) 08/02/2024 HCT 35.3 (L) 08/02/2024 MCV 82 08/02/2024 PLT 278 08/02/2024 Lab Results Component Value Date FERRITIN 77 07/25/2023 Chemistry Component Value Date/Time K 3.7 08/02/2024 0428 CL 104 08/02/2024 0428 CO2 24 08/02/2024 0428 BUN 18 08/02/2024 0428 CREATININE 0.81 08/02/2024 0428 GLU 108 (H) 08/02/2024 0428 Component Value Date/Time CALCIUM 8.3 (L) 08/02/2024427 ALKPHOS 121 08/02/2024 0428 AST 24 08/02/2024 0428 AST 30 07/31/2015 0814 ALT 42 (H) 08/02/20248 ALT 34 07/31/2015 0814 Lab Results Component Value Date TSH 2.71 04/22/2024 Echo complete W/ contrast Result Date: 03/12/2024 Left Ventricle: Left ventricle appears normal in size. Systolic function is normal with an ejection fraction of 55-60%. Aortic Valve: The aortic valve is trileaflet. The leaflets are calcified. There is no regurgitation. There is mild to moderate stenosis. The calculated aortic valve area is 1.05 cm2. The calculated aortic valve peak gradient is 36.00 mmHg. The calculated aortic valve mean gradient is 22.00 mmHg. Sleep Study Results: Titration 03/28/23 DIAGNOSIS: ? Obstructive Sleep Apnea (G47.33) (Ocjmbz=036.0 lbs; BMI=45.2 kg/m2, on 03/28/2023) COMMENTS: This BiPAP titration tested settings of 18/14 to 22/16 cm of water. A setting of 22/16 cm of water effectively treated this patient's obstructive sleep apnea and was tested in lateral REM and NREM sleep. Settings as low as 22/15 cm of water were nearly as effective. There was no sleep related hypoventilation or hypoxemia. IMPRESSION/RECOMMENDATIONS: 1. STEFF (obstructive sleep apnea) 2. Iron deficiency anemia, unspecified iron deficiency anemia type 3. RLS (restless legs syndrome) 4. Class 3 severe obesity due to excess calories with serious comorbidity and body mass index (BMI) of 45.0 to 49.9 in adult Royce Delaney is a 75 y.o. male with medical problems including as above, presenting in follow up for STEFF treated with BiPAP and RLS - STEFF, continue BiPAP - usage is below goal, increase use, when not using sleep inclined in recliner - supplies renewed RLS - controlled with medication - on mirapex 1.5 mg BID, higher than recommended dose for RLS but no adverse effects - Will check CBC, ferritin and iron level with TIBC, hold iron 2 days before - If serum ferritin is less than <75 or percent transferrin < 20%, will supplement with oral iron (ferrous sulfate 325 mg orally, starting every other day and increasing to daily as tolerated) - if iron deficient will need follow up with PCP given anemia, consider IV iron Obesity - Weight loss recommended. Discussed that STEFF can worsen with weight gain and improve and some cases resolve with weight loss, as well as weight loss improving cardio-metabolic outcomes. -Discussed he may be a candidate for tirzepatide for STEFF and weight loss, if interested advised to discuss with PCP. EDUCATION: Pathophysiology of STEFF was explained. Health risks associated with untreated STEFF were discussed (cardiopulmonary, cerebrovascular, and anesthesia/sedative-related). Risks associated with excessive daytime sleepiness, particularly while driving/operating machinery were discussed. 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 Above plan as discussed with the patient who acknowledged understanding and agreement. GUERDA AGGARWAL MD [facility] [address] [place] [id number] documented in this encounter [facility] 03-08-2025 Instructions Guerda Aggarwal MD - 03/08/2025 11:00 AM EDT Discussed he may be a candidate for tirzepatide for STEFF and weight loss, if interested advised to discuss with PCP. Continue BiPAP Iron labs - hold iron 2 days before draw documented in this encounter [facility] 02-28-2025 History of Present illness Narrative Images from the original note were not included. [id number] [place] [id number] SUBJECTIVE: Patient ID: Royce Delaney is a 74 y.o. male. Patient presents to the office for cellulitis recheck, has lost 5lbs since last visit, swelling and redness has improved. Sore is looking better as well. He is going to call the lymphedema clinic in [place]. Follow-up Pertinent negatives include no abdominal pain, arthralgias, chest pain, congestion, coughing, fatigue, fever, joint swelling, nausea, neck pain, numbness, rash, sore throat, vomiting or weakness. The following portions of the patient's history were reviewed and updated as appropriate: allergies, current medications, past family history, past medical history, past social history, past surgical history and problem list. REVIEW OF SYSTEMS: Review of Systems Constitutional: Negative for fatigue, fever and unexpected weight change. HENT: Negative for congestion, ear pain, sinus pressure, sinus pain and sore throat. Eyes: Negative for photophobia, pain, discharge and visual disturbance. Respiratory: Negative for cough and shortness of breath. Cardiovascular: Negative for chest pain, palpitations and leg swelling. Gastrointestinal: Negative for abdominal pain, diarrhea, nausea and vomiting. Endocrine: Negative for polydipsia, polyphagia and polyuria. Genitourinary: Negative for difficulty urinating, frequency, hematuria and urgency. Musculoskeletal: Negative for arthralgias, gait problem, joint swelling and neck pain. Skin: Positive for wound. Negative for pallor and rash. Neurological: Negative for dizziness, weakness, light-headedness and numbness. Psychiatric/Behavioral: Negative for sleep disturbance. The patient is not nervous/anxious. PHYSICAL EXAMINATION: Vitals: 02/28/25 1526 BP: 134/72 Pulse: 76 Resp: 18 SpO2: 97% Weight: (!) 163.7 kg (361 lb) Physical Exam Constitutional: Appearance: He is well-developed. HENT: Head: Normocephalic and atraumatic. Right Ear: External ear normal. Left Ear: External ear normal. Eyes: Conjunctiva/sclera: Conjunctivae normal. Pupils: Pupils are equal, round, and reactive to light. Cardiovascular: Rate and Rhythm: Normal rate and regular rhythm. Heart sounds: Normal heart sounds. Pulmonary: Effort: Pulmonary effort is normal. Breath sounds: Normal breath sounds. Abdominal: General: Bowel sounds are normal. Musculoskeletal: General: Normal range of motion. Cervical back: Normal range of motion. Skin: General: Skin is warm and dry. Comments: Wound is improving, no redness or warmth today. Has some swelling but improved Neurological: Mental Status: He is alert and oriented to person, place, and time. Psychiatric: Mood and Affect: Mood normal. ASSESSMENT/PLAN: Royce was seen today for follow-up. Diagnoses and all orders for this visit: Lymphedema of both lower extremities Cellulitis of right lower leg Other orders - sulfamethoxazole-trimethoprim (BACTRIM DS) 800-160 mg per tablet; Take 1 tablet by mouth in the morning and 1 tablet before bedtime. Do all this for 7 days. - doxycycline (VIBRAMYCIN) 100 mg capsule; Take 1 capsule (100 mg total) by mouth in the morning and 1 capsule (100 mg total) before bedtime. Do all this for 7 days. Follow-up: One more week of ATBs Will see back next week He is going to call lymphedema clinic in [place] MARISA Chao 02/28/25 1548 documented in this encounter [facility] 02-24-2025 Miscellaneous Notes PT came in to the office asking for a pap order supply to be sent to his DME, as they said just ask for it to be sent. I informed pt that insurance is generally the reason orders won't work if you haven't been seen in the past 12 months as they will deny coverage until you have been seen. Informed PT that we do not have any sooner appts at this time. Climate Change Risk Assessor called patient offered 03/08/2025 with AD in [place], patient moved appointment to 03/08/2025. documented in this encounter [facility] 02-24-2025 Telephone encounter Note PT came in to the office asking for a pap order supply to be sent to his DME, as they said just ask for it to be sent. I informed pt that insurance is generally the reason orders won't work if you haven't been seen in the past 12 months as they will deny coverage until you have been seen. Informed PT that we do not have any sooner appts at this time. [facility] 02-24-2025 Telephone encounter Note Climate Change Risk Assessor called patient offered 03/08/2025 with [facility] in [place], patient moved appointment to 03/08/2025. [facility] 02-24-2025 History of Present illness Narrative Images from the original note were not included. Subjective Patient ID: Royce Delaney is a 74 y.o. male who presents for Toenail Care (Pt is here today for toenail care, he is unable to reach his feet to trim the nails. He is also dealing with cellulitis RLE but is being treated for that elsewhere/SS: 15). HPI Patient presents requesting nail care. Chief complaint: Thickened, discolored, ingrown and deformed fungal toenails involving multiple digits. Problematic/symptomatic over the past several weeks; describing pressure discomfort with shoe gear, catching and snagging on clothing, bed sheets etc.. Denies bleeding or drainage. Chronic toenail deformity, multiple years duration. Self care measures are difficult, ineffective and not practical; increasing risk exposure. Family members unable to provide affective care. Palliative care measures have provided favorable transient symptom relief. Risk factors: Prosthetic joints. Lymphedema. Mobility, flexibility and dexterity restraints. Toenail deformity. Digital and/or shoe trauma and related complications. Review of Systems Constitutional: Negative for activity [...] tablet, Take 10 mg by mouth at bedtime., Disp: , Rfl: ferrous sulfate 325 (65 Fe) MG tablet, Take 325 mg by mouth at bedtime., Disp: , Rfl: furosemide (Lasix) 40 MG tablet, Take 40 mg by mouth in the morning., Disp: , Rfl: nortriptyline (Pamelor) 75 MG capsule, Take 75 mg by mouth 1 (one) time each day at the same time., Disp: , Rfl: omeprazole (PriLOSEC) [address] capsule, Take 20 mg by mouth at bedtime., Disp: , Rfl: pramipexole (Mirapex) 1.5 MG [...] NWO TOTAL KNEE ARTHROPLASTY Left LT TKA- DR STEPANIC TOTAL KNEE ARTHROPLASTY Left 05/09/2024 Family [...] seconds. 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 All 10 toenails are elongated. Hallux nails bilaterally with notable pincer deformity and incurvated margins. Hyperkeratotic pinch callus plaques present plantar medial IPJ of the hallux bilaterally, right 2nd, 3rd toes. Minimally tender; non-inflamed; without ulcerative changes. Neurological: Mental Status: He is alert. Comments: No loss of protective sensation, gross sensation intact. Psychiatric: Mood and Affect: Mood normal. Behavior: Behavior normal. Assessment/Plan No diagnosis found. 1. 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 2. Endoprosthesis bilateral knees. 3. Chronic, stable lymphedema both lower extremities; recent cellulitis effectively resolved with oral antibiotic therapy. 4. Status post revisional endoprosthesis right knee. Patient remains well satisfied with a conservative and palliative care approach; expressing no interest in oral or topical therapy. Recommend Amlactin therapy daily. Toenail debridement: Aseptic technique: Hand and power instrumentation: Onychodebridement in length and thickness, with curettage of any cryptotic margins, all periungual debris; providing effective symptom and pressure relief; reducing shoe and digital trauma. Aseptic technique: # 15 scalpel: Sharp debridement of hyperkeratotic pinch callus lesions bilateral. This note was created with the assistance of a speech recognition program. While intending to generate a timely document that accurately reflects the content of the visit, no guarantee can be provided that every grammatical or spelling mistake has been or will be identified or corrected. Thank you for your understanding. Jonathon Dahl DPM documented in this encounter [facility] 02-24-2025 Instructions Jonathon Dahl DPM - 02/24/2025 1:15 PM EDT As noted documented in this encounter [facility] 02-21-2025 History of Present illness Narrative Images from the original note were not included. [address] [place] [id number] SUBJECTIVE: Patient ID: Royce Delaney is a 74 y.o. male. Patient presents to the office for complaints of cellulitis of right lower extremity. He has a long standing history of cellulitis and lymphedema. He cannot tolerate lymphedema compression devices. He has a sore on the back of his right lower leg. Redness and warmth noted. He did not feel like bactrim by itself was overly helpful last time. Will do doxycyline and bactrim. Will also add Bactroban topical. The following portions of the patient's history were reviewed and updated as appropriate: allergies, current medications, past family history, past medical history, past social history, past surgical history and problem list. REVIEW OF SYSTEMS: Review of Systems Constitutional: Negative for fatigue, fever and unexpected weight change. HENT: Negative for congestion, ear pain, sinus pressure, sinus pain and sore throat. Eyes: Negative for photophobia, pain, discharge and visual disturbance. Respiratory: Negative for cough and shortness of breath. Cardiovascular: Negative for chest pain, palpitations and leg swelling. Gastrointestinal: Negative for abdominal pain, diarrhea, nausea and vomiting. Endocrine: Negative for polydipsia, polyphagia and polyuria. Genitourinary: Negative for difficulty urinating, frequency, hematuria and urgency. Musculoskeletal: Negative for arthralgias, gait problem, joint swelling and neck pain. Skin: Positive for color change. Negative for pallor and rash. Neurological: Negative for dizziness, weakness, light-headedness and numbness. Psychiatric/Behavioral: Negative for sleep disturbance. The patient is not nervous/anxious. PHYSICAL EXAMINATION: Vitals: 02/21/25 1458 BP: 130/76 Pulse: 96 Resp: 20 SpO2: 96% Weight: (!) 166 kg (366 lb) Physical Exam Constitutional: Appearance: He is well-developed. HENT: Head: Normocephalic and atraumatic. Right Ear: External ear normal. Left Ear: External ear normal. Eyes: Conjunctiva/sclera: Conjunctivae normal. Pupils: Pupils are equal, round, and reactive to light. Cardiovascular: Rate and Rhythm: Normal rate and regular rhythm. Heart sounds: Normal heart sounds. Pulmonary: Effort: Pulmonary effort is normal. Breath sounds: Normal breath sounds. Musculoskeletal: General: Normal range of motion. Cervical back: Normal range of motion. Skin: General: Skin is warm and dry. Comments: Sore noted to posterior right calf, redness noted, no drainage or swelling Neurological: Mental Status: He is alert and oriented to person, place, and time. Psychiatric: Mood and Affect: Mood normal. ASSESSMENT/PLAN: Royce was seen today for cellulitis. Diagnoses and all orders for this visit: Lymphedema of both lower extremities Cellulitis of right lower leg Arthritis of left sacroiliac joint Chronic bronchitis, unspecified chronic bronchitis type ([facility]) BMI 45.0-49.9, adult ([facility]) Pure hypercholesterolemia Essential hypertension Other orders - sulfamethoxazole-trimethoprim (BACTRIM DS) 800-160 mg per tablet; Take 1 tablet by mouth in the morning and 1 tablet before bedtime. Do all this for 10 days. - doxycycline (VIBRAMYCIN) 100 mg capsule; Take 1 capsule (100 mg total) by mouth in the morning and 1 capsule (100 mg total) before bedtime. Do all this for 10 days. - mupirocin (BACTROBAN) 2 % ointment; Apply 1 Application topically 3 (three) times a day. Follow-up: Doxycyline 100mg bid for ten days Bactrim bid for ten days Bactroban tid to affected area Follow up next week Patient noted to have elevated BMI and the following intervention(s) were applied: encouragement to exercise. MARISA Chao 02/21/25 1517 documented in this encounter [employer] 02-21-2025 Miscellaneous Notes Patient is concerned his cellulitis is coming back in his leg. He had called and left message with front desk auxiliary asking for an antibiotic. Climate Change Risk Assessor called back to discuss with patient and he is willing to come in to office and be evaluated today. Appointment made for 2:45 today with Bo. documented in this encounter [employer] 02-21-2025 Telephone encounter Note Patient is concerned his cellulitis is coming back in his leg. He had called and left message with front desk auxiliary asking for an antibiotic. Climate Change Risk Assessor called back to discuss with patient and he is willing to come in to office and be evaluated today. Appointment made for 2:45 today with Bo. [employer] Work Phone: 01-26-2025 History of Present illness Narrative Images from the original note were not included. Subjective Patient ID: Royce Delaney is a 74 y.o. male who presents for Follow-up (Pt is returns today for a 1mo FUV wart Lt foot. It is still present. He has a nail care appt in February /SS: 15W). HPI Follow-up assessment: PPD/verrucoid lesion plantar surface of the left heel. Patient reports interval improvement, however with mild recalcitrant symptoms, notably less sharp. Denies redness, swelling, bleeding or drainage. Tolerance to ADLs and walking activity continues to improve. Review of Systems Constitutional: Negative for activity [...] tablet, Take 10 mg by mouth at bedtime., Disp: , Rfl: ferrous sulfate 325 (65 Fe) MG tablet, Take 325 mg by mouth at bedtime., Disp: , Rfl: furosemide (Lasix) 40 MG tablet, Take 40 mg by mouth in the morning., Disp: , Rfl: nortriptyline (Pamelor) 75 MG capsule, Take 75 mg by mouth 1 (one) time each day at the same time., Disp: , Rfl: omeprazole (PriLOSEC) [address] capsule, Take 20 mg by mouth at bedtime., Disp: , Rfl: pramipexole (Mirapex) 1.5 MG tablet, Take 1.5 mg by mouth in the morning and 1.5 mg in the evening and 1.5 mg before bedtime., Disp: , Rfl: Allergies Cephalexin Past Surgical History Past Surgical History: Procedure Laterality Date CT ANGIOGRAM HEART CORONARY 05/25/2024 CT ANGIOGRAM TAVR 05/25/2024 HERNIA REPAIR 2020 IR JOINT ASPIRATION Left three KNEE ARTHROSCOPY W/ LASER 2007 TONSILLECTOMY TOTAL KNEE ARTHROPLASTY Right 07/14/2019 NWO TOTAL KNEE ARTHROPLASTY Left LT TKA- DR EMMY TOTAL KNEE ARTHROPLASTY Left 05/09/2024 Family History [...] Comments: 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 Hyperkeratotic pinch callus plaques present plantar medial IPJ of the hallux bilaterally, right 2nd, 3rd toes. Focused exam left heel: Near-complete resolution of the PPD/verrucoid lesion is appreciated; with no residual core or nucleated portion. The site is non-tender, non-inflamed, non-fluctuant. Unremarkable for ulcerative changes, foreign body or pigment. There remains diffuse keratosis along the plantar aspect of both heels. Neurological: Mental Status: He is alert. Comments: No loss of protective sensation, gross sensation intact. Psychiatric: Mood and Affect: Mood normal. Behavior: Behavior normal. Assessment/Plan No diagnosis found. 1. 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 2. Endoprosthesis bilateral knees. 3. Chronic, stable lymphedema both lower extremities. 4. Status post revisional endoprosthesis right knee. 5. Symptomatic PPD/verrucoid lesion left heel as described; near-complete resolution, responding favorably to debridement and chemo cautery. Review of clinical findings, differential diagnosis of symptomatic lesion, etiology and contributing/aggravating factors, response to date, treatment strategy, rationale and objectives. Left foot: Debridement of residual keratotic tissue. Encourage compliance with Amlactin therapy daily. Discourage any barefoot walking. Procedure: This note was created with the assistance of a speech recognition program. While intending to generate a timely document that accurately reflects the content of the visit, no guarantee can be provided that every grammatical or spelling mistake has been or will be identified or corrected. Thank you for your understanding. Jonathon Dahl DPM documented in this encounter [facility] 01-26-2025 Instructions Jonathon Dahl DPM - 01/26/2025 2:30 PM EDT As noted documented in this encounter [facility] 12-29-2024 History of Present illness Narrative Images from the original note were not included. Subjective Patient ID: Royce Delaney is a 74 y.o. male who presents for Follow-up (Established pt presents today for 2-3 week fuv of painful lesion, left heel. ). HPI Follow-up assessment: PPD/verrucoid lesion plantar surface of the left heel. Patient reports persistent pain and discomfort; noting minimal relief since last visit. Denies bleeding or drainage. Denies redness or swelling. Denies streaking or constitutional symptoms. Particularly notes poor tolerance to barefoot walking on hard surfaces. He relates minimal discomfort when wearing shoes with Powerstep orthoses. Review of Systems Constitutional: Negative for activity [...] tablet, Take 10 mg by mouth at bedtime., Disp: , Rfl: ferrous sulfate 325 (65 Fe) MG tablet, Take 325 mg by mouth at bedtime., Disp: , Rfl: furosemide (Lasix) 40 MG tablet, Take 40 mg by mouth in the morning., Disp: , Rfl: nortriptyline (Pamelor) 75 MG capsule, Take 75 mg by mouth 1 (one) time each day at the same time., Disp: , Rfl: omeprazole (PriLOSEC) [address] capsule, Take 20 mg by mouth at bedtime., Disp: , Rfl: pramipexole (Mirapex) 1.5 MG tablet, Take 1.5 mg by mouth in the morning and 1.5 mg in the evening and 1.5 mg before bedtime., Disp: , Rfl: Allergies Cephalexin Past Surgical History Past Surgical History: Procedure Laterality Date CT ANGIOGRAM HEART CORONARY 05/25/2024 CT ANGIOGRAM TAVR 05/25/2024 HERNIA REPAIR 2020 IR JOINT ASPIRATION Left three KNEE ARTHROSCOPY W/ LASER 2007 TONSILLECTOMY TOTAL KNEE ARTHROPLASTY Right 07/14/2019 NWO TOTAL KNEE ARTHROPLASTY Left LT TKA- DR STEPANIC TOTAL KNEE ARTHROPLASTY Left 05/09/2024 Family [...] Comments: 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 Hyperkeratotic pinch callus plaques present plantar medial IPJ of the hallux bilaterally, right 2nd, 3rd toes. Focused exam left heel: Residual PPD/verrucoid lesion plantar surface of the left heel; fairly shallow. Minimally tender to direct and lateral compression. The site is non-inflamed, non-fluctuant. Unremarkable for ulcerative changes, foreign body or pigment. Neurological: Mental Status: He is alert. Comments: No loss of protective sensation, gross sensation intact. Psychiatric: Mood and Affect: Mood normal. Behavior: Behavior normal. Assessment/Plan ICD-10-CM 1. Plantar wart, left foot B07.0 2. Acquired keratoderma L85.1 3. Left foot pain M79.672 4. Difficulty walking R26.2 1. 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 2. Endoprosthesis bilateral knees. 3. Chronic, stable lymphedema both lower extremities. 4. Status post revisional endoprosthesis right knee. 5. Symptomatic PPD/verrucoid lesion left heel as described; appears to be effectively resolving. Review of clinical findings, differential diagnosis of symptomatic lesion, etiology and contributing/aggravating factors, treatment strategy, rationale and objectives. Left foot: Debridement of residual keratotic tissue. Encourage Amlactin therapy daily. Discourage any barefoot walking. Procedure: This note was created with the assistance of a speech recognition program. While intending to generate a timely document that accurately reflects the content of the visit, no guarantee can be provided that every grammatical or spelling mistake has been or will be identified or corrected. Thank you for your understanding. Jonathon Dahl DPM documented in this encounter [facility] 12-29-2024 Instructions Jonathon Dahl DPM - 12/29/2024 2:30 PM EST As noted documented in this encounter [facility] 12-27-2024 Miscellaneous Notes Patient called stating that his cellulitis is coming back. Patient said that Dr. Blank has instructed him to call the office and he could send him in some medicine to help with this Sent bactrim to ty [facility]27-[facility]24 Telephone encounter Note Patient called stating that his cellulitis is coming back. Patient said that Dr. Blank has instructed him to call the office and he could send him in some medicine to help with this [facility] 12-27-2024 Telephone encounter Note Sent bactrim to ty [facility] 12-13-2024 History of Present illness Narrative Images from the original note were not included. Subjective Patient ID: Royce Delaney is a 74 y.o. male who presents for Foot Pain (Royce Delaney is a 74 y.o. male. Patient relates callus on heel was not resolved at the last visit. Patient states pain with weightbearing. Last visit 11/24/2023. ). HPI Chief complaint: Progressively painful prominent callus or wart plantar surface of the left heel of several weeks duration. Denies injury or trauma. Denies bleeding or drainage. Symptoms impacting ADLs and walking activity. Patient comments feels like I am walking on a stone . There has been no specific treatment to date. Risk factors: Prosthetic joints. Lymphedema. Mobility, flexibility and dexterity restraints. Toenail deformity. Digital and/or shoe trauma and related complications. Review of Systems Constitutional: Negative for activity [...] tablet, Take 10 mg by mouth at bedtime., Disp: , Rfl: ferrous sulfate 325 (65 Fe) MG tablet, Take 325 mg by mouth at bedtime., Disp: , Rfl: furosemide (Lasix) 40 MG tablet, Take 40 mg by mouth in the morning., Disp: , Rfl: nortriptyline (Pamelor) 75 MG capsule, Take 75 mg by mouth 1 (one) time each day at the same time., Disp: , Rfl: omeprazole (PriLOSEC) [address] capsule, Take 20 mg by mouth at bedtime., Disp: , Rfl: pramipexole (Mirapex) 1.5 MG tablet, Take 1.5 mg by mouth in the morning and 1.5 mg in the evening and 1.5 mg before bedtime., Disp: , Rfl: Allergies Cephalexin Past Surgical History Past Surgical History: Procedure Laterality Date CT ANGIOGRAM HEART CORONARY 05/25/2024 CT ANGIOGRAM TAVR 05/25/2024 HERNIA REPAIR 2020 IR JOINT ASPIRATION Left three KNEE ARTHROSCOPY W/ LASER 2007 TONSILLECTOMY TOTAL KNEE ARTHROPLASTY Right 07/14/2019 NWO TOTAL KNEE ARTHROPLASTY Left LT TKA- DR STEPANIC TOTAL KNEE ARTHROPLASTY Left 05/09/2024 Family [...] Comments: 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 Hyperkeratotic pinch callus plaques present plantar medial IPJ of the hallux bilaterally, right 2nd, 3rd toes. Focused exam left heel: Well-defined, raised, deeply nucleated porokeratotic lesion; located central plantar surface. The lesion is acutely tender to both direct and lateral compression. Unremarkable for foreign body, pigment or ulcerative changes. Neurological: Mental Status: He is alert. Comments: No loss of protective sensation, gross sensation intact. Psychiatric: Mood and Affect: Mood normal. Behavior: Behavior normal. Assessment/Plan No diagnosis found. 1. 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 2. Endoprosthesis bilateral knees. 3. Chronic, stable lymphedema both lower extremities. 4. Status post revisional endoprosthesis right knee. 5. Progressively symptomatic PPD/verrucoid lesion left heel as described Review of clinical findings, differential diagnosis of symptomatic lesion, etiology and contributing/aggravating factors, treatment strategy, rationale and objectives. Left foot: Debridement and enucleation as described. Occlusive dressing with pressure relief padding: Intact, clean and dry 3 days. Patient noted favorable relief upon leaving the clinic. Encourage Amlactin therapy daily. Discourage any barefoot walking. Procedure: Left heel: Aseptic technique: # 15 scalpel: Sharp debridement and enucleation of symptomatic PPD/verrucoid lesion to the level of dermal bleeding; reducing direct and indirect pressure. Phenol hemostasis/chemo cautery. 60 percent salicylic acid packing. Occlusive dressing with pressure relief padding. This note was created with the assistance of a speech recognition program. While intending to generate a timely document that accurately reflects the content of the visit, no guarantee can be provided that every grammatical or spelling mistake has been or will be identified or corrected. Thank you for your understanding. Jonathon Dahl DPM documented in this encounter [facility] 12-13-2024 Instructions Jonathon Dahl DPM - 12/13/2024 1:00 PM EST As noted documented in this encounter [facility] 11-24-2024 History of Present illness Narrative Images from the original note were not included. Subjective Patient ID: Royce Delaney is a 74 y.o. male who presents for No chief complaint on file.. HPI Patient presents requesting nail care. Chief complaint: Thickened, discolored, ingrown and deformed fungal toenails involving multiple digits. Problematic/symptomatic over the past several weeks; describing pressure discomfort with shoe gear, catching and snagging on clothing, bed sheets etc.. Denies bleeding or drainage. Chronic toenail deformity, multiple years duration. Self care measures are difficult, ineffective and not practical; increasing risk exposure. Family members unable to provide affective care. Palliative care measures have provided favorable transient symptom relief. Risk factors: Prosthetic joints. Lymphedema. Mobility, flexibility and dexterity restraints. Toenail deformity. Digital and/or shoe trauma and related complications. Review of Systems Constitutional: Negative for activity [...] tablet, Take 10 mg by mouth at bedtime., Disp: , Rfl: ferrous sulfate 325 (65 Fe) MG tablet, Take 325 mg by mouth at bedtime., Disp: , Rfl: furosemide (Lasix) 40 MG tablet, Take 40 mg by mouth in the morning., Disp: , Rfl: nortriptyline (Pamelor) 75 MG capsule, Take 75 mg by mouth 1 (one) time each day at the same time., Disp: , Rfl: omeprazole (PriLOSEC) [address] capsule, Take 20 mg by mouth at bedtime., Disp: , Rfl: pramipexole (Mirapex) 1.5 MG tablet, Take 1.5 mg by mouth in the morning and 1.5 mg in the evening and 1.5 mg before bedtime., Disp: , Rfl: Allergies Cephalexin Past Surgical History Past Surgical History: Procedure Laterality Date CT ANGIOGRAM HEART CORONARY 05/25/2024 CT ANGIOGRAM TAVR 05/25/2024 HERNIA REPAIR 2020 IR JOINT ASPIRATION Left [...] seconds. 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 All 10 toenails are elongated. Hallux nails bilaterally with notable pincer deformity and incurvated margins. Hyperkeratotic pinch callus plaques present plantar medial IPJ of the hallux bilaterally, right 2nd, 3rd toes. Tender to palpation; non-inflamed; without ulcerative changes. Neurological: Mental Status: He is alert. Comments: No loss of protective sensation, gross sensation intact. Psychiatric: Mood and Affect: Mood normal. Behavior: Behavior normal. Assessment/Plan No diagnosis found. 1. 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 2. Endoprosthesis bilateral knees. 3. Chronic, stable lymphedema both lower extremities. 4. Status post revisional endoprosthesis right knee. Patient remains well satisfied with a conservative and palliative care approach; expressing no interest in oral or topical therapy. Recommend Amlactin therapy daily. Toenail debridement: Aseptic technique: Hand and power instrumentation: Onychodebridement in length and thickness, with curettage of any cryptotic margins, all periungual debris; providing effective symptom and pressure relief; reducing shoe and digital trauma. Aseptic technique: # 15 scalpel: Sharp debridement of hyperkeratotic pinch callus lesions bilateral. This note was created with the assistance of a speech recognition program. While intending to generate a timely document that accurately reflects the content of the visit, no guarantee can be provided that every grammatical or spelling mistake has been or will be identified or corrected. Thank you for your understanding. Jonathon Dahl DPM documented in this encounter [facility] 11-24-2024 Instructions Jonathon Dahl DPM - 11/24/2024 2:45 PM EST As noted documented in this encounter [facility] 11-08-2024 History of Present illness Narrative Change in Status: Cellulitis -Lymphedema Date of Onset: 10/21/24 Patient endorses the following symptoms: Reports right thigh redness much improved but continues with induration Describes thigh as hard as a rock .with pain into thigh muscle Patient denies the following symptoms: Fever, worsening redness What has the Patient tried/taken to manage symptoms? Completed Doxycycline 3 days ago, elevating when he can Wears lymphedema pump 2 hours a day for a few days but reports it caused pain into muscles after 3 day Has Patient had a recent ER - Hospital - Urgent Care - Office Visit for this issue? 10/21/24 Office visit Nursing Recommendations and Patient Response: SN encouraged again to schedule with lymphedema clinic as well as to wrap legs when he is going out Please advise as I will be following up with the patient. Thanks SUZETTE [facility] Last [facility] Chronic Care Nurse Nurse Special [phone] documented in this encounter [facility] 11-08-2024 Miscellaneous Notes Bactrim DS 1 bid rx for 10d sent to [facility] for pt - please encourage f/u lymphedema clinic to ER if worse Patient advised, patient verbalized understanding documented in this encounter [facility] 11-08-2024 Telephone encounter Note Bactrim DS 1 bid rx for 10d sent to [facility] for pt - please encourage f/u lymphedema clinic to ER if worse [facility] [employer] 11-08-2024 Telephone encounter Note Patient advised, patient verbalized understanding [facility] [employer] 10-21-2024 History of Present illness Narrative Images from the original note were not included. [id number] [place] [id number] Subjective: Royce Delaney is a 74 y.o. male who presents for a Medicare Annual Wellness exam. The following portions of the patient's history were reviewed and updated as appropriate: Health Risk Assessment, allergies, past medical history, past surgical history, social history, family history, and immunization history Accompanied by: self History Provided By: self Language and Other Communication Barriers: Primary Language Spoken: Dominican Highest Level of Education Completed: high school diploma/GED Are You Happy With How Well You Read? yes Diet and Physical Activity: Current Prescribed Diet: Low Sodium Diet How would you describe the condition of your mouth and teeth, including false teeth and dentures? Good Exercise Frequency: Sedentary Types of Exercise: Walking Health Risk Assessment: Cognitive Screening Do you have trouble remembering or recalling facts or events?: No Do family members or caregivers report that you have difficulty remembering things?: No Depression Screening Little interest or pleasure in doing things: Not at all Feeling down, depressed, or hopeless: Not at all Trouble falling or staying asleep, or sleeping too much: (!) More than half the days Feeling tired or having little energy: (!) More than half the days Poor appetite or overeating: Not at all Feeling bad about yourself - or that you are a failure or have let yourself or your family down: Not at all Trouble concentrating on things, such as reading the newspaper or watching television: Not at all Moving or speaking so slowly that other people could have noticed. Or the opposite - being so fidgety or restless that you have been moving around a lot more than usual: Not at all Thoughts that you would be better off , or of hurting yourself in some way: Not at all End of Life Planning Do you have a living will?: Yes Do you have a durable power of emblem fuser tender?: Yes Fall Risk Fall Risk Assessment Completed?: Yes Hearing Assessment Do you strain or struggle to hear/understand conversations?: No Do you have trouble hearing the television or radio when others do not?: No Does your family ever voice concerns about your hearing?: No Do you wear hearing aid/s?: No Lifestyle Assessment Do you smoke or use smokeless tobacco?: No If you smoke or use smokeless tobacco, are you ready to quit?: NA Are you exposed to secondhand smoke?: No On average, how many drinks of alcohol do you consume in a week?: 1 or less Do you exercise for 30 or more minutes on average at least 3 days a week?: (!) Never Do you have any tooth, denture, or oral problems?: No Do you snore or has anyone told you that you snore?: No Do you try to eat a balanced diet?: Yes Do you experience leakage of urine, also known as urinary incontinence?: Never Do you have difficulty performing any of these activities? (check all that apply): None Do you have difficulty performing any of these activities? (check all that apply): None Personal Health During the past 4 weeks, how would you rate your overall health?: Good Do you understand how to take all of your medications?: Yes How confident are you that you can control and manage most of your health problems?: Very confident In the past 12 months, how many times have you been hospitalized?: (!) 2 or more Safety Assessment Do you have throw rugs on the floor?: No Do you feel safe at your home?: Yes Do you feel unsteady when walking?: No Are you having difficulty with driving?: No Do you have trouble seeing?: No What assistive device do you use? (check all that apply): (!) Raised toilet seat Vitals: Vitals: 10/21/24 1439 BP: 138/82 Pulse: 80 Resp: 16 Temp: (!) 35.4 C (95.7 F) Body mass index is 47.4 kg/m . History: Hospitalizations during the past 12 months: no Patient Active Problem List Diagnosis Date Noted Cellulitis of right lower leg 07/30/2024 Lymphangitis 06/24/2024 Cellulitis of right lower extremity 05/25/2024 Failure of outpatient treatment 05/25/2024 Bilateral leg edema 05/25/2024 Moderate aortic stenosis 05/25/2024 Iron deficiency anemia, unspecified 05/17/2024 COPD (chronic obstructive pulmonary disease) ([facility]) 05/17/2024 Mechanical loosening of internal right knee prosthetic joint, initial encounter ([facility]) 05/12/2024 Presence of right artificial knee joint 05/12/2024 S/P total knee arthroplasty, right 05/12/2024 Neuralgia 06/11/2023 Balance problems 08/13/2022 Excessive daytime sleepiness 08/13/2022 Muscle weakness 01/23/2022 Cervical stenosis of spinal canal 01/02/2022 Weakness of both lower limbs 08/27/2021 Restless leg syndrome 04/19/2021 Psychophysiological insomnia 04/19/2021 Chronic midline low back pain without sciatica 04/19/2021 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 04/13/2020 Herniation of right lung 04/13/2020 Class 3 severe obesity with body mass index (BMI) of 45.0 to 49.9 in adult ([facility]) 04/13/2020 Lymphedema of both lower extremities 12/28/2019 Knee mass, right 10/01/2019 Primary osteoarthritis of right knee 07/14/2019 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 12/17/2018 Adenomatous polyp of transverse colon 10/19/2018 Encounter for colonoscopy due to history of colonic polyp 09/08/2018 Morbid obesity with BMI of 40.0-44.9, adult ([facility]) 01/19/2018 STEFF (obstructive sleep apnea) 11/25/2016 Dyspnea 11/25/2016 Non morbid obesity 11/25/2016 Essential hypertension 11/25/2016 Hyperlipidemia 11/25/2016 Gastroesophageal reflux disease without esophagitis 11/25/2016 Past Medical History: Diagnosis Date Anemia Arrhythmia Back pain 20 YEARS AGO Chronic pain disorder DJD (degenerative joint disease) Fractures right ribs GERD (gastroesophageal reflux disease) HL (hearing loss) mild HLD (hyperlipidemia) HTN (hypertension) in the past, no current medication Irregular heart beat Low back pain Morbid obesity ([facility]) Obesity STEFF (obstructive sleep apnea) bipap Pain Pneumonia 2014 RLS (restless legs syndrome) Varicella ASA KID Visual impairment glasses Past Surgical History: Procedure Laterality Date ANKLE ARTHROSCOPY Right COLONOSCOPY N/A 01/06/2023 Performed by Herman Haley DO at [facility] COLONOSCOPY N/A 10/12/2018 Performed by Sumit Mackey MD at [facility] DAVINCI REPAIR HERNIA VENTRAL WITH MESH N/A 12/15/2019 Performed by Ramon Monson DO at [facility] EYE SURGERY JOINT REPLACEMENT Left 2009 dr. booth knee REPLACEMENT TOTAL JOINT RIGHT KNEE Right 07/14/2019 Performed by Chico Sutton MD at [facility] REPLACEMENT TOTAL KNEE Right 04/25/2023 SINUS SURGERY yrs ago TONSILLECTOMY AND ADENOIDECTOMY Family History Problem Relation Age of Onset Lung disease Mother Pulmonary Fibrosis Lung cancer Mother Stroke Father Early Brother PROSTATE Prostate cancer Brother Colon cancer Brother Anesthesia problems Neg Hx Bleeding Disorder Neg Hx Social History Tobacco Use Smoking status: Never Smokeless tobacco: Never Substance Use Topics Alcohol use: No Allergies: Allergies Allergen Reactions Keflex [Cephalexin] pain Current Outpatient Medications Medication Sig Dispense Refill aspirin 81 mg Take 1 tablet (81 mg total) by mouth in the morning. ferrous sulfate 325 (65 FE) mg tablet Take 1 tablet (325 mg total) by mouth nightly. 30 tablet 3 furosemide (LASIX) 40 mg tablet Take 1 tablet (40 mg total) by mouth daily. 90 tablet 3 atorvastatin (LIPITOR) 10 mg tablet Take 1 tablet (10 mg total) by mouth nightly. 90 tablet 1 omeprazole (PriLOSEC) 20 mg capsule Take 1 capsule (20 mg total) by mouth nightly. 90 capsule 1 pramipexole (MIRAPEX) 1.5 mg tablet Take 1 tablet (1.5 mg total) by mouth 3 (three) times a day. 270 tablet 1 No current facility-administered medications for this visit. Immunization History Administered Date(s) Administered COVID-19, mRNA, LNP-S, PF, 30mcg/0.3mL Dose 01/06/2021, 01/27/2021 Covid-19, Mrna, Lnp-s, Bivalent, Pf, 10 Mcg/0.2 Ml 04/29/2023 Covid-19, Mrna, Lnp-s, Bivalent, Pf, 30mcg/0.3 ml 04/29/2023 Covid-19, Mrna, Lnp-s, Pf,jair-sucrose,30 Mcg/0.3ml Fall23 09/01/2023, 08/29/2024 Influenza High Dose Preservative Free IM 08/29/2024 Influenza Vaccine, Quadrivalent, Adjuvanted 08/18/2020 Influenza, High-dose, Quadrivalent 08/01/2021, 08/07/2022, 09/01/2023 Influenza, Injectable, quadrivalent (PF) 08/08/2018 Influenza, Unspecified 09/29/2017, 09/13/2019, 11/25/2019 Pneumococcal Conjugate 13-Valent 08/08/2018 Pneumococcal Polysaccharide 09/06/2010, 09/15/2019 RSV, bivalent, protein subunit RSVpreF, diluent reconstituted, 0.5 mL, PF 09/01/2023 Tdap 02/08/2019 Zoster Vaccine Recombinant 11/08/2019, 04/29/2023, 07/05/2023 Medication Adherence: Original 4-item [place] Scale Do you ever forget to take your medicine? no Are you careless at times about taking your medicine? no When you feel better, do you sometimes stop taking your medicine? no Sometimes if you feel worse when you take your medicine, do you stop taking it? no Score: 4 Scoring: high-low; yes=0 no=1. Range 0-4. By reversing the wording of four questions about the way patients might experience drug omissions, the sum of yes answers would provide a composite measure of non-adherence. Higher scores indicate higher adherence. Cognitive Screening: Clock Drawing Test: Normal Mini-Cog: Patient Concerns for Cognitive Function: no Family Concerns for Cognitive Function: no Sensory Screening: Hearing right ear: normal Hearing left ear: normal Can you hear what a person says without seeing his/her face, if spoken in a normal voice from across the room? Yes Can you hear what a person says without seeing his/her face, if that person whispers to you from across a room? Yes Do you use a hearing aid: No Review of Systems: Review of Systems Cardiovascular: Positive for leg swelling. Musculoskeletal: Positive for arthralgias. Objective: Physical Exam Vitals and nursing note reviewed. Constitutional: Appearance: Normal appearance. HENT: Head: Normocephalic and atraumatic. Eyes: Extraocular Movements: Extraocular movements intact. Pupils: Pupils are equal, round, and reactive to light. Cardiovascular: Rate and Rhythm: Normal rate and regular rhythm. Pulses: Normal pulses. Heart sounds: Normal heart sounds. Pulmonary: Effort: Pulmonary effort is normal. Breath sounds: Normal breath sounds. Musculoskeletal: Right lower leg: Edema present. Left lower leg: Edema present. Skin: General: Skin is warm and dry. Neurological: General: No focal deficit present. Mental Status: He is alert and oriented to person, place, and time. Psychiatric: Mood and Affect: Mood normal. Behavior: Behavior normal. Admission on 07/30/2024, Discharged on 08/02/2024 Component Date Value Ref Range Status White Blood Cells 07/30/2024 7.8 4.0 - 11.0 X10E9/L Final RBC count 07/30/2024 4.46 4.10 - 5.70 X10E12/L Final Hemoglobin 07/30/2024 12.0 (L) 13.0 - 17.0 g/dL Final Hematocrit 07/30/2024 36.2 (L) 39 - 49 % Final MCV 07/30/2024 81 80 - 100 fL Final MCH 07/30/2024 26.9 (L) 27 - 34 pg Final MCHC 07/30/2024 33.2 32 - 36 g/dL Final RDW 07/30/2024 16.5 (H) 11.5 - 15.0 % Final Platelets 07/30/2024 393 150 - 450 X10E9/L Final MPV 07/30/2024 7.1 7 - 12 fL Final % neutrophils 07/30/2024 70.4 % Final % lymphocytes 07/30/2024 19.1 % Final % monocytes 07/30/2024 6.7 % Final % eosinophils 07/30/2024 2.7 % Final % Basophils 07/30/2024 1.1 % Final Neutrophils Absolute (A) 07/30/2024 5.5 1.5 - 6.6 X10E9/L Final Lymphocytes Absolute 07/30/2024 1.5 1.0 - 3.5 X10E9/L Final Monocytes Absolute 07/30/2024 0.5 0 - 0.9 X10E9/L Final Eosinophils Absolute 07/30/2024 0.2 0.0 - 0.4 X10E9/L Final Basophils Absolute 07/30/2024 0.1 0.0 - 0.2 X10E9/L Final Sodium 07/30/2024 138 134 - 146 mmol/L Final Potassium, Bld 07/30/2024 4.6 3.5 - 5.0 mmol/L Final SPECIMEN HEMOLYZED, RESULTS INCREASED Chloride 07/30/2024 106 98 - 109 mmol/L Final CO2 07/30/2024 25 22 - 32 mmol/L Final Anion gap 07/30/2024 7 5 - 15 mmol/L Final BUN 07/30/2024 21 5 - 27 mg/dL Final Creatinine 07/30/2024 0.96 0.70 - 1.20 mg/dL Final METHOD TRACEABLE TO IDPA STANDARD Glucose 07/30/2024 95 65 - 99 mg/dL Final Calcium 07/30/2024 9.0 8.5 - 10.5 mg/dL Final eGFR (CKD-EPI)non-race dependent 07/30/2024 84 >59 ml/min/1.73sq.m Final Comment: Reported eGFR is based on the CKD-EPI 2020 equation that does not use a race coefficient. Lactate w/ Reflex 07/30/2024 1.2 0.4 - 2.0 mmol/L Final Comment: Result did not trigger repeat Lactate, re-order if needed. Specimen Notes 07/30/2024 SUBOPTIMAL VOLUME OF BLOOD COLLECTED, RESULTS MAY BE AFFECTED. Final Culture 07/30/2024 NO GROWTH 5 DAYS Final Specimen Notes 07/30/2024 SUBOPTIMAL VOLUME OF BLOOD COLLECTED, RESULTS MAY BE AFFECTED. Final Culture 07/30/2024 NO GROWTH 5 DAYS Final BNP 07/30/2024 10 <100.0 pg/mL Final Magnesium 07/30/2024 2.0 1.8 - 2.6 mg/dL Final SPECIMEN HEMOLYZED, RESULTS INCREASED Troponin I, High Sensitivity 07/30/2024 11 <21 ng/L Final 1 Hour Trop I, High Sensitivity 07/30/2024 12 <21 ng/L Final Sodium 07/31/2024 140 134 - 146 mmol/L Final Potassium, Bld 07/31/2024 3.8 3.5 - 5.0 mmol/L Final Chloride 07/31/2024 105 98 - 109 mmol/L Final CO2 07/31/2024 27 22 - 32 mmol/L Final Anion gap 07/31/2024 8 5 - 15 mmol/L Final BUN 07/31/2024 20 5 - 27 mg/dL Final Creatinine 07/31/2024 0.83 0.70 - 1.20 mg/dL Final METHOD TRACEABLE TO IDPA STANDARD Glucose 07/31/2024 131 (H) 65 - 99 mg/dL Final Calcium 07/31/2024 8.7 8.5 - 10.5 mg/dL Final Total Protein 07/31/2024 6.9 6.0 - 8.0 g/dL Final Albumin 07/31/2024 3.0 (L) 3.2 - 5.3 g/dL Final Alkaline Phosphatase 07/31/2024 125 39 - 130 U/L Final AST 07/31/2024 34 0 - 41 U/L Final ALT 07/31/2024 57 (H) 0 - 40 U/L Final Total bilirubin 07/31/2024 0.5 0.3 - 1.2 mg/dL Final eGFR (CKD-EPI)non-race dependent 07/31/2024 >90 >59 ml/min/1.73sq.m Final Comment: Reported eGFR is based on the CKD-EPI 2020 equation that does not use a race coefficient. Magnesium 07/31/2024 1.9 1.8 - 2.6 mg/dL Final White Blood Cells 07/31/2024 6.5 4.0 - 11.0 X10E9/L Final RBC count 07/31/2024 3.94 (L) 4.10 - 5.70 X10E12/L Final Hemoglobin 07/31/2024 10.5 (L) 13.0 - 17.0 g/dL Final Hematocrit 07/31/2024 32.2 (L) 39 - 49 % Final MCV 07/31/2024 82 80 - 100 fL Final MCH 07/31/2024 26.6 (L) 27 - 34 pg Final MCHC 07/31/2024 32.4 32 - 36 g/dL Final RDW 07/31/2024 16.9 (H) 11.5 - 15.0 % Final Platelets 07/31/2024 297 150 - 450 X10E9/L Final MPV 07/31/2024 6.3 (L) 7 - 12 fL Final % neutrophils 07/31/2024 68.5 % Final % lymphocytes 07/31/2024 19.9 % Final % monocytes 07/31/2024 6.5 % Final % eosinophils 07/31/2024 4.5 % Final % Basophils 07/31/2024 0.6 % Final Neutrophils Absolute (A) 07/31/2024 4.4 1.5 - 6.6 X10E9/L Final Lymphocytes Absolute 07/31/2024 1.3 1.0 - 3.5 X10E9/L Final Monocytes Absolute 07/31/2024 0.4 0 - 0.9 X10E9/L Final Eosinophils Absolute 07/31/2024 0.3 0.0 - 0.4 X10E9/L Final Basophils Absolute 07/31/2024 0.0 0.0 - 0.2 X10E9/L Final CRP 07/31/2024 4.9 (H) 0.000 - 0.744 mg/dL Final Procalcitonin 07/31/2024 0.08 (H) <0.05 ng/mL Final Comment: NOTE <0.50 ng/mL - Low risk of severe sepsis and/or septic shock. <2.00 ng/mL - Recommend retesting within 6-24 hours. >2.00 ng/mL - High risk of sepsis and/or septic shock. Potassium, Bld 07/31/2024 3.9 3.5 - 5.0 mmol/L Final Magnesium 07/31/2024 2.2 1.8 - 2.6 mg/dL Final Sodium 08/01/2024 137 134 - 146 mmol/L Final Potassium, Bld 08/01/2024 4.3 3.5 - 5.0 mmol/L Final Chloride 08/01/2024 105 98 - 109 mmol/L Final CO2 08/01/2024 27 22 - 32 mmol/L Final Anion gap 08/01/2024 5 5 - 15 mmol/L Final BUN 08/01/2024 20 5 - 27 mg/dL Final Creatinine 08/01/2024 0.78 0.70 - 1.20 mg/dL Final METHOD TRACEABLE TO IDMS STANDARD Glucose 08/01/2024 108 (H) 65 - 99 mg/dL Final Calcium 08/01/2024 8.7 8.5 - 10.5 mg/dL Final Total Protein 08/01/2024 7.6 6.0 - 8.0 g/dL Final Albumin 08/01/2024 3.4 3.2 - 5.3 g/dL Final Alkaline Phosphatase 08/01/2024 131 (H) 39 - 130 U/L Final AST 08/01/2024 28 0 - 41 U/L Final ALT 08/01/2024 52 (H) 0 - 40 U/L Final Total bilirubin 08/01/2024 0.4 0.3 - 1.2 mg/dL Final eGFR (CKD-EPI)non-race dependent 08/01/2024 >90 >59 ml/min/1.73sq.m Final Comment: Reported eGFR is based on the CKD-EPI 2020 equation that does not use a race coefficient. Magnesium 08/01/2024 2.4 1.8 - 2.6 mg/dL Final White Blood Cells 08/01/2024 6.2 4.0 - 11.0 X10E9/L Final RBC count 08/01/2024 4.24 4.10 - 5.70 X10E12/L Final Hemoglobin 08/01/2024 11.4 (L) 13.0 - 17.0 g/dL Final Hematocrit 08/01/2024 35.3 (L) 39 - 49 % Final MCV 08/01/2024 83 80 - 100 fL Final MCH 08/01/2024 26.8 (L) 27 - 34 pg Final MCHC 08/01/2024 32.3 32 - 36 g/dL Final RDW 08/01/2024 16.6 (H) 11.5 - 15.0 % Final Platelets 08/01/2024 310 150 - 450 X10E9/L Final MPV 08/01/2024 6.1 (L) 7 - 12 fL Final % neutrophils 08/01/2024 70.0 % Final % lymphocytes 08/01/2024 17.2 % Final % monocytes 08/01/2024 7.2 % Final % eosinophils 08/01/2024 5.0 % Final % Basophils 08/01/2024 0.6 % Final Neutrophils Absolute (A) 08/01/2024 4.4 1.5 - 6.6 X10E9/L Final Lymphocytes Absolute 08/01/2024 1.1 1.0 - 3.5 X10E9/L Final Monocytes Absolute 08/01/2024 0.4 0 - 0.9 X10E9/L Final Eosinophils Absolute 08/01/2024 0.3 0.0 - 0.4 X10E9/L Final Basophils Absolute 08/01/2024 0.0 0.0 - 0.2 X10E9/L Final Vancomycin trough 08/01/2024 16.2 5.0 - 20.0 ug/mL Final Sodium 08/02/2024 137 134 - 146 mmol/L Final Potassium, Bld 08/02/2024 3.7 3.5 - 5.0 mmol/L Final Chloride 08/02/2024 104 98 - 109 mmol/L Final CO2 08/02/2024 24 22 - 32 mmol/L Final Anion gap 08/02/2024 9 5 - 15 mmol/L Final BUN 08/02/2024 18 5 - 27 mg/dL Final Creatinine 08/02/2024 0.81 0.70 - 1.20 mg/dL Final METHOD TRACEABLE TO IDMS STANDARD Glucose 08/02/2024 108 (H) 65 - 99 mg/dL Final Calcium 08/02/2024 8.3 (L) 8.5 - 10.5 mg/dL Final Total Protein 08/02/2024 7.0 6.0 - 8.0 g/dL Final Albumin 08/02/2024 3.1 (L) 3.2 - 5.3 g/dL Final Alkaline Phosphatase 08/02/2024 121 39 - 130 U/L Final AST 08/02/2024 24 0 - 41 U/L Final ALT 08/02/2024 42 (H) 0 - 40 U/L Final Total bilirubin 08/02/2024 0.5 0.3 - 1.2 mg/dL Final eGFR (CKD-EPI)non-race dependent 08/02/2024 >90 >59 ml/min/1.73sq.m Final Comment: Reported eGFR is based on the CKD-EPI 2020 equation that does not use a race coefficient. Magnesium 08/02/2024 2.1 1.8 - 2.6 mg/dL Final White Blood Cells 08/02/2024 6.2 4.0 - 11.0 X10E9/L Final RBC count 08/02/2024 4.30 4.10 - 5.70 X10E12/L Final Hemoglobin 08/02/2024 11.4 (L) 13.0 - 17.0 g/dL Final Hematocrit 08/02/2024 35.3 (L) 39 - 49 % Final MCV 08/02/2024 82 80 - 100 fL Final MCH 08/02/2024 26.4 (L) 27 - 34 pg Final MCHC 08/02/2024 32.3 32 - 36 g/dL Final RDW 08/02/2024 16.9 (H) 11.5 - 15.0 % Final Platelets 08/02/2024 278 150 - 450 X10E9/L Final MPV 08/02/2024 6.4 (L) 7 - 12 fL Final % neutrophils 08/02/2024 70.4 % Final % lymphocytes 08/02/2024 17.8 % Final % monocytes 08/02/2024 7.1 % Final % eosinophils 08/02/2024 4.2 % Final % Basophils 08/02/2024 0.5 % Final Neutrophils Absolute (A) 08/02/2024 4.4 1.5 - 6.6 X10E9/L Final Lymphocytes Absolute 08/02/2024 1.1 1.0 - 3.5 X10E9/L Final Monocytes Absolute 08/02/2024 0.4 0 - 0.9 X10E9/L Final Eosinophils Absolute 08/02/2024 0.3 0.0 - 0.4 X10E9/L Final Basophils Absolute 08/02/2024 0.0 0.0 - 0.2 X10E9/L Final CRP 08/02/2024 1.7 (H) 0.000 - 0.744 mg/dL Final Advanced Directives: Living Will: Yes DPA for Health Care: Yes Discussion and Summary: Risk findings: none Personalized Prevention Plan Services: Specialty Evaluation Advised:N/A Preventative Programs Recommended: N/A Prevention Counseling and Education Materials:N/A Diseases: N/A Immunizations: N/A Nutrition: N/A Activity/Exercise/Safety/Misc: N/A The above recommendations were discussed with the patient. Medicare Available Services: Medicare Available Services Admin of Pneumococcal Vaccine: Completed Admin of influenza vaccine: Completed Admin of Hep B vaccine: Not applicable AAA ultrasound screening: Not applicable Screening mammography: Not applicable Screening pap and pelvic exam: Not applicable Prostate cancer screening: Completed Colorectal cancer screening tests: Completed DM outpatient self management training services: Not applicable Bone mass measurements: Not applicable Screening for glaucoma: Recommended Cardiovascular screening blood tests: Completed DM screening blood tests: Completed Smoking cessation counseling: Completed Counseling to prevent tobacco use: Completed Screening/counseling to reduce alcohol misuse: Completed Behavioral therapy for obesity: Not applicable STI infection screening and behavioral counseling: Not applicable Medical nutrition therapy services for DM: Not applicable Medical nutrition therapy services: Not applicable Copy to patient and copy in patient's medical record. Assessment/Plan: Royce Delaney has been seen for a well visit today. Preventative recommendations were reviewed. Any chronic conditions that have been addressed include those listed below. Royce was seen today for annual exam. Diagnoses and all orders for this visit: Routine general medical examination at a health care facility Essential hypertension Pure hypercholesterolemia Lymphedema of both lower extremities BMI 45.0-49.9, adult ([facility]) Other orders - atorvastatin (LIPITOR) 10 mg tablet; Take 1 tablet (10 mg total) by mouth nightly. - pramipexole (MIRAPEX) 1.5 mg tablet; Take 1 tablet (1.5 mg total) by mouth 3 (three) times a day. - omeprazole (PriLOSEC) 20 mg capsule; Take 1 capsule (20 mg total) by mouth nightly. Follow Up: Finish doxycycline Elevation of legs, low salt diet and pumps lymphedema clinic encouraged documented in this encounter [employer] 10-21-2024 Instructions Megan Blank MD - 10/21/2024 2:45 PM EST Medicare Available Services Admin of Pneumococcal Vaccine: Completed Admin of influenza vaccine: Completed Admin of Hep B vaccine: Not applicable AAA ultrasound screening: Not applicable Screening mammography: Not applicable Screening pap and pelvic exam: Not applicable Prostate cancer screening: Completed Colorectal cancer screening tests: Completed DM outpatient self management training services: Not applicable Bone mass measurements: Not applicable Screening for glaucoma: Recommended Cardiovascular screening blood tests: Completed DM screening blood tests: Completed Smoking cessation counseling: Completed Counseling to prevent tobacco use: Completed Screening/counseling to reduce alcohol misuse: Completed Behavioral therapy for obesity: Not applicable STI infection screening and behavioral counseling: Not applicable Medical nutrition therapy services for DM: Not applicable Medical nutrition therapy services: Not applicable documented in this encounter [facility] 10-07-2024 Evaluation + Plan note Associated Problem(s): Lymphedema of both lower extremities This complex decongestive therapy, regular use of lymphedema wraps, leg elevation weight loss. I also recommended using his lymphedema pump. He will see the lymphedema clinic soon. [facility] 10-07-2024 Miscellaneous Notes Associated Problem(s): Lymphedema of both lower extremities This complex decongestive therapy, regular use of lymphedema wraps, leg elevation weight loss. I also recommended using his lymphedema pump. He will see the lymphedema clinic soon. documented in this encounter [facility] 10-07-2024 History of Present illness Narrative Images from the original note were not included. To: Megan Blank MD HPI: Royce Delaney is a 74 y.o. male with Bilateral lower extremity lymphedema. He recently had knee replacement surgery. That has close exacerbation of his lymphedema. He has right lower extremity lymphangitis he has been on antibiotics . Review of Systems: Review of Systems Constitutional: Negative. HENT: Negative. Respiratory: Negative. Cardiovascular: Negative. Gastrointestinal: Negative. Endocrine: Negative. Genitourinary: Negative. Musculoskeletal: Negative. Skin: Negative. Neurological: Negative. Hematological: Negative. Medications: Current Outpatient Medications on File Prior to Visit Medication Sig Dispense Refill aspirin 81 mg Take 1 tablet (81 mg total) by mouth in the morning. atorvastatin (LIPITOR) 10 mg tablet Take 1 tablet (10 mg total) by mouth nightly. 90 tablet 2 doxycycline (VIBRAMYCIN) 100 mg capsule Take 1 capsule (100 mg total) by mouth in the morning and 1 capsule (100 mg total) before bedtime. Do all this for 20 days. 20 capsule 1 ferrous sulfate 325 (65 FE) mg tablet Take 1 tablet (325 mg total) by mouth nightly. 30 tablet 3 furosemide (LASIX) 40 mg tablet Take 1 tablet (40 mg total) by mouth daily. 90 tablet 3 omeprazole (PriLOSEC) 20 mg capsule Take 1 capsule (20 mg total) by mouth nightly. 90 capsule 2 pramipexole (MIRAPEX) 1.5 mg tablet Take 1 tablet (1.5 mg total) by mouth 3 (three) times a day. 270 tablet 2 diphenhydrAMINE (BENADRYL) 25 mg capsule Take 2 capsules (50 mg total) by mouth nightly as needed for sleep. (Patient not taking: Reported on 10/07/2024) Lactobac comb [id number] (PROBIOTIC & ACIDOPHILUS) 300-250 million cell-mg capsule Take 1 capsule by mouth in the morning and 1 capsule in the evening. Take with meals. (Patient not taking: Reported on 08/09/2024) 60 capsule 0 No current facility-administered medications on file prior to visit. Past Medical History: Past Medical History: Diagnosis Date Anemia Arrhythmia Back pain 20 YEARS AGO Chronic pain disorder DJD (degenerative joint disease) Fractures right ribs GERD (gastroesophageal reflux disease) HL (hearing loss) mild HLD (hyperlipidemia) HTN (hypertension) in the past, no current medication Irregular heart beat Low back pain Morbid obesity (CMS-HCC) Obesity STEFF (obstructive sleep apnea) bipap Pain Pneumonia 2014 RLS (restless legs syndrome) Varicella ASA KID Visual impairment glasses Past Surgical History: Past Surgical History: Procedure Laterality Date ANKLE ARTHROSCOPY Right COLONOSCOPY N/A 01/06/2023 Performed by Herman Haley DO at [facility] COLONOSCOPY N/A 10/12/2018 Performed by Sumit Mackey MD at [facility] DAVINCI REPAIR HERNIA VENTRAL WITH MESH N/A 12/15/2019 Performed by Ramon Monson DO at [facility] EYE SURGERY JOINT REPLACEMENT Left 2009 dr. booth knee REPLACEMENT TOTAL JOINT RIGHT KNEE Right 07/14/2019 Performed by Chico Sutton MD at [facility] REPLACEMENT TOTAL KNEE Right 04/25/2023 SINUS SURGERY yrs ago TONSILLECTOMY AND ADENOIDECTOMY Social and Family History: Social History Socioeconomic History Marital status: Spouse name: Not on file Number of children: Not on file Years of education: Not on file Highest education level: GED or equivalent Occupational History Not on file Tobacco Use Smoking status: Never Smokeless tobacco: Never Vaping Use Vaping status: Never Used Substance and Sexual Activity Alcohol use: No Drug use: No Sexual activity: Defer Other Topics Concern Not on file Social History Narrative Not on file Social Drivers of Health Financial Resource Strain: Low Risk (05/12/2024) [facility]ceived from [facility] Overall Financial Resource Strain (CARDIA) Difficulty of Paying Living Expenses: Not hard at all Food Insecurity: No Food Insecurity (09/28/2024) Hunger Screening Food Insecurity - Worry: Never True Food Insecurity - Inability: Never True Transportation Needs: No Transportation Needs (07/30/2024) PRAPARE - Transportation Lack of Transportation (Medical): No Lack of Transportation (Non-Medical): No Physical Activity: Inactive (12/05/2019) Exercise Vital Sign Days of Exercise per Week: 0 days Minutes of Exercise per Session: 0 min Stress: No Stress Concern Present (12/05/2019) [employer] [place] [employer] - Occupational Stress Questionnaire Feeling of Stress : Not at all Social Connections: Socially Integrated (12/05/2019) Social Connection and Isolation Panel [NHANES] Frequency of Communication with Friends and Family: Twice a week Frequency of Social Gatherings with Friends and Family: Once a week Attends Confucianism Services: More than 4 times per year Active Member of Clubs or Organizations: Yes Attends Club or Organization Meetings: Never Marital Status: Interpersonal Safety: Not At Risk (07/30/2024) Humiliation, Afraid, Rape, and Kick questionnaire Fear of Current or Ex-Partner: No Emotionally Abused: No Physically Abused: No Sexually Abused: No Housing Instability: Low Risk (07/30/2024) Housing Instability Housing Instability: No Family History Problem Relation Age of Onset Lung disease Mother Pulmonary Fibrosis Lung cancer Mother Stroke Father Early Brother PROSTATE Prostate cancer Brother Colon cancer Brother Anesthesia problems Neg Hx Bleeding Disorder Neg Hx Recent Labs: Recent and relative labs were reviewed and interpreted and contributed to the assessment and plan below. Vitals: BP 141/83 Pulse 87 Wt (!) 159.2 kg (351 lb) BMI 47.60 kg/m Body mass index is 47.6 kg/m . Physical Exam: Physical Exam Constitutional: Appearance: Normal appearance. HENT: Head: Normocephalic and atraumatic. Mouth/Throat: Mouth: Mucous membranes are moist. Eyes: Extraocular Movements: Extraocular movements intact. Pupils: Pupils are equal, round, and reactive to light. Cardiovascular: Rate and Rhythm: Normal rate and regular rhythm. Pulmonary: Effort: Pulmonary effort is normal. Breath sounds: Normal breath sounds. Abdominal: General: Abdomen is flat. Bowel sounds are normal. Palpations: Abdomen is soft. Musculoskeletal: General: Normal range of motion. Cervical back: Normal range of motion. Right lower leg: Edema present. Left lower leg: Edema present. Skin: General: Skin is warm and dry. Neurological: General: No focal deficit present. Mental Status: He is alert and oriented to person, place, and time. Mental status is at baseline. Psychiatric: Mood and Affect: Mood normal. Behavior: Behavior normal. Thought Content: Thought content normal. Judgment: Judgment normal. Recent testing: Assessment and Plan: Problem List Lymphedema of both lower extremities - Primary Current Assessment & Plan This complex decongestive therapy, regular use of lymphedema wraps, leg elevation weight loss. I also recommended using his lymphedema pump. He will see the lymphedema clinic soon. Royce was seen today for follow-up and edema. Diagnoses and all orders for this visit: Lymphedema of both lower extremities Cesar Valle MD, JOSEPH, RPVI, FSVS, FACS [facility] This note was created with the assistance of a speech recognition program. While intending to generate a timely document that accurately reflects the content of the visit, no guarantee can be provided that every grammatical or spelling mistake has been or will be identified or corrected. Thank you for your understanding. documented in this encounter [facility] 09-28-2024 History of Present illness Narrative Images from the original note were not included. [id number] [facility] [id number] SUBJECTIVE: Patient ID: Royce Delaney is a 74 y.o. male. 74 wm with 3-4 of gradual worsening right leg lymphedema pain and swelling - pt is concerned about cellulitis recurring and has started doxycycline and it may be helping The following portions of the patient's history were reviewed and updated as appropriate: allergies, current medications, past family history, past medical history, past social history, past surgical history and problem list. REVIEW OF SYSTEMS: Review of Systems Constitutional: Negative for fever. Cardiovascular: Positive for leg swelling. Skin: Positive for rash. Neurological: Positive for light-headedness. PHYSICAL EXAMINATION: Vitals: 09/28/24 1448 BP: 124/70 BP Site: Left Arm BP Postition: Sitting BP CUFF SIZE: L (13-17 inches) Pulse: 97 Resp: 18 Temp: 36.2 C (97.2 F) TempSrc: Tympanic SpO2: 96% Weight: (!) 156.9 kg (346 lb) Height: 182.9 cm (6') Physical Exam Vitals and nursing note reviewed. Constitutional: Appearance: Normal appearance. HENT: Head: Normocephalic and atraumatic. Eyes: Pupils: Pupils are equal, round, and reactive to light. Musculoskeletal: General: Tenderness present. Right lower leg: Edema present. Comments: Left lower ext tenderness Skin: Findings: Erythema and rash present. Neurological: Mental Status: He is alert. Mental status is at baseline. Psychiatric: Mood and Affect: Mood normal. Behavior: Behavior normal. ASSESSMENT/PLAN: Royce was seen today for cellulitis. Diagnoses and all orders for this visit: Cellulitis of right lower leg Lymphedema of both lower extremities Follow-up: Doxycycline rx [facility], referral to vascular documented in this encounter [facility] 08-12-2024 History of Present illness Narrative Images from the original note were not included. Subjective Patient ID: Royce Delaney is a 74 y.o. male who presents for Toenail Care (Established pt presents today for nail and callus care. Pt relates being in hospital 3 times since April. SS: 14). HPI Patient presents requesting nail care. Chief complaint: Thickened, discolored, ingrown and deformed fungal toenails involving multiple digits. Problematic/symptomatic over the past several weeks; describing pressure discomfort with shoe gear, catching and snagging on clothing, bed sheets etc.. Denies bleeding or drainage. Chronic toenail deformity, multiple years duration. Self care measures are difficult, ineffective and not practical; increasing risk exposure. Family members unable to provide affective care. Palliative care measures have provided favorable transient symptom relief. Risk factors: Prosthetic joints. Lymphedema. Mobility, flexibility and dexterity restraints. Toenail deformity. Digital and/or shoe trauma and related complications. Review of Systems Constitutional: Negative for activity [...] tablet, Take 10 mg by mouth at bedtime., Disp: , Rfl: ferrous sulfate 325 (65 Fe) MG tablet, Take 325 mg by mouth at bedtime., Disp: , Rfl: furosemide (Lasix) 40 MG tablet, Take 40 mg by mouth in the morning., Disp: , Rfl: nortriptyline (Pamelor) 75 MG capsule, Take 75 mg by mouth 1 (one) time each day at the same time., Disp: , Rfl: omeprazole (PriLOSEC) [address] capsule, Take 20 mg by mouth at bedtime., Disp: , Rfl: pramipexole (Mirapex) 1.5 MG tablet, Take 1.5 mg by mouth in the morning and 1.5 mg in the evening and 1.5 mg before bedtime., Disp: , Rfl: Allergies Cephalexin Past Surgical History Past Surgical History: Procedure Laterality Date CT ANGIOGRAM HEART CORONARY 05/25/2024 CT ANGIOGRAM TAVR 05/25/2024 HERNIA REPAIR 2020 IR JOINT ASPIRATION Left three KNEE ARTHROSCOPY W/ LASER 2007 TONSILLECTOMY TOTAL KNEE ARTHROPLASTY Right 07/14/2019 NWO TOTAL KNEE ARTHROPLASTY Left LT TKA- DR STEPANIC TOTAL KNEE ARTHROPLASTY Left 05/09/2024 Family [...] seconds. Comments: All 10 toenails exhibit clinical mycosis with thickened appearance, yellow/brown discoloration, crumbly texture, subungual debris. All 10 toenails are elongated. Hallux nails bilaterally are tender with manipulation and he does have some impingement along the lateral border of the right hallux without drainage, cellulitis. Hyperkeratotic plaques present plantar medial IPJ of the hallux bilaterally, right 2nd, 3rd toes. Tender with manipulation. Neurological: Mental Status: He is alert. Comments: No loss of protective sensation, gross sensation intact. Psychiatric: Mood and Affect: Mood normal. Behavior: Behavior normal. Assessment/Plan No diagnosis found. 1. 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 2. Endoprosthesis bilateral knees. 3. Chronic, stable lymphedema both lower extremities. 4. Status post revisional endoprosthesis right knee. Patient remains well satisfied with a conservative and palliative care approach; expressing no interest in oral or topical therapy. Toenail debridement: Aseptic technique: Hand and power instrumentation: Onychodebridement in length and thickness, with curettage of any cryptotic margins, all periungual debris; providing effective symptom and pressure relief; reducing shoe and digital trauma. This note was created with the assistance of a speech recognition program. While intending to generate a timely document that accurately reflects the content of the visit, no guarantee can be provided that every grammatical or spelling mistake has been or will be identified or corrected. Thank you for your understanding. Jonathon Dahl DPM documented in this encounter [facility] 08-12-2024 Instructions Jonathon Dahl DPM - 08/12/2024 2:45 PM EDT As noted documented in this encounter [facility] 08-09-2024 History of Present illness Narrative Images from the original note were not included. [address] [facility] [place] [id number] SUBJECTIVE: Patient ID: Royce Delaney is a 74 y.o. male. 74 yo WM with leg weakness while on keflex? And houlde weakness, pt thinks it is kelfex causing this x 6-8 weeks, pt has been on a prolonged course The following portions of the patient's history were reviewed and updated as appropriate: allergies, current medications, past family history, past medical history, past social history, past surgical history and problem list. REVIEW OF SYSTEMS: Review of Systems Neurological: Positive for weakness. PHYSICAL EXAMINATION: Vitals: 08/09/24 1026 BP: 132/80 BP Site: Left Arm BP Postition: Sitting BP CUFF SIZE: L (13-17 inches) Pulse: 88 Resp: 16 Temp: 37.1 C (98.7 F) TempSrc: Tympanic Weight: (!) 154.2 kg (340 lb) Height: 182.9 cm (6') Physical Exam Vitals and nursing note reviewed. HENT: Head: Normocephalic and atraumatic. Eyes: Extraocular Movements: Extraocular movements intact. Pupils: Pupils are equal, round, and reactive to light. Cardiovascular: Rate and Rhythm: Normal rate and regular rhythm. Pulses: Normal pulses. Heart sounds: Normal heart sounds. Pulmonary: Effort: Pulmonary effort is normal. Breath sounds: Normal breath sounds. Musculoskeletal: Right lower leg: Edema present. Left lower leg: Edema present. Neurological: General: No focal deficit present. ASSESSMENT/PLAN: Royce was seen today for neck stiffness. Diagnoses and all orders for this visit: Cellulitis of right lower leg Chronic bronchitis, unspecified chronic bronchitis type (CMS-HCC) Essential hypertension Pure hypercholesterolemia Asthenia - [facility] [place] [facility] [place], [place]; Future Other orders - doxycycline (VIBRAMYCIN) 100 mg capsule; Take 1 capsule (100 mg total) by mouth in the morning and 1 capsule (100 mg total) before bedtime. Do all this for 15 days. Follow-up: Stop keflex Doxycycline 100mg bid x30d Dr Garcia referral documented in this encounter [facility] 08-06-2024 Miscellaneous Notes Please call patient, he is having a reaction to a medication given to him at the [place] [id number] Pt called and will stop probiotic due to se's documented in this encounter [facility] 08-06-2024 Telephone encounter Note Please call patient, he is having a reaction to a medication given to him at the [place] [address] [facility] 08-06-2024 Telephone encounter Note Pt called and will stop probiotic due to se's [facility] 07-30-2024 History of Present illness Narrative Images from the original note were not included. [address] [facility] [id number] SUBJECTIVE: Patient ID: Royce Delaney is a 74 y.o. male. 74 yo WM with cellulitis and ER f/u with doxycycline -rx and pt feels that the foot is worse last several days, more red and swollen The following portions of the patient's history were reviewed and updated as appropriate: allergies, current medications, past family history, past medical history, past social history, past surgical history and problem list. REVIEW OF SYSTEMS: Review of Systems Skin: Positive for color change, rash and wound. PHYSICAL EXAMINATION: Vitals: 07/30/24 1453 BP: 126/70 BP Site: Left Arm BP Postition: Sitting BP CUFF SIZE: M (9-13 inches) Pulse: 88 Resp: 16 Temp: 36.6 C (97.9 F) TempSrc: Tympanic Weight: (!) 154.2 kg (340 lb) Height: 182.9 cm (6') Physical Exam Vitals and nursing note reviewed. Constitutional: Appearance: Normal appearance. HENT: Head: Normocephalic and atraumatic. Cardiovascular: Rate and Rhythm: Normal rate and regular rhythm. Pulses: Normal pulses. Heart sounds: Normal heart sounds. Pulmonary: Effort: Pulmonary effort is normal. Breath sounds: Normal breath sounds. Skin: General: Skin is warm. Findings: Erythema and rash present. Comments: Severe lymphedema Neurological: Mental Status: He is alert. ASSESSMENT/PLAN: Royce was seen today for follow-up. Diagnoses and all orders for this visit: Cellulitis of right lower extremity Lymphedema of both lower extremities Follow-up: Pt referred back to ER as foot worse after 3 days of doxycycline documented in this encounter [facility] 07-27-2024 Miscellaneous Notes Patient called and said his right leg/foot is red, swollen, warm to the touch. The skin is hard as a rock per patient. He previously had cellulitis of the leg he said. What do you recommend that he can do? He is no longer going to the lymphedema clinic. Pt has been admitted for cellulitis in the past so would recommend ER eval today! Called patient and he is agreeable to go to the ER. He said he is going now. documented in this encounter [facility] 07-27-2024 Telephone encounter Note Patient called and said his right leg/foot is red, swollen, warm to the touch. The skin is hard as a rock per patient. He previously had cellulitis of the leg he said. What do you recommend that he can do? He is no longer going to the lymphedema clinic. [facility] 07-27-2024 Telephone encounter Note Pt has been admitted for cellulitis in the past so would recommend ER eval today! [facility] 07-27-2024 Telephone encounter Note Called patient and he is agreeable to go to the ER. He said he is going now. [facility] 07-02-2024 History of Present illness Narrative Pt here for dressing change to his right lower leg. Old dressing removed. Small amount drainage noted on old dressing. New dressing applied without problems. Pt to return in one week for provider visit. documented in this encounter [facility] 07-02-2024 Instructions Kathi Yoon RN - 07/02/2024 1:30 PM EDT Wound Management Treatment Plan Wound Location(s): right leg HOW TO CARE FOR YOUR WOUND The following should be performed Daily and as needed. STEP 1: Cleanse wound with Soap and water, rinse well, and pat dry. STEP 2: Cover wound with Alginate with Silver, then dry max STEP 3: Secure dressings with Roll gauze/Kerlix ACTIVITY: NUTRITION: SKIN CARE: SWELLING CONTROL: Guanako wraps to be applied first thing in the morning and removed at bedtime. right leg wrap from base of toes to just below the knee. May require more than one wrap per leg. ITEMS TO FOLLOW UP ON: Length Width Depth Wound drainage Type Description small Serous serous documented in this encounter [facility] 06-29-2024 Miscellaneous Notes Call received form patient asking if he should continue to keep wound covered. Climate Change Risk Assessor reviewed wound care orders with patient, and instructed patient to continue dressings as directed at last appointment. Patient voiced understanding documented in this encounter [facility] 06-29-2024 Telephone encounter Note Call received form patient asking if he should continue to keep wound covered. Climate Change Risk Assessor reviewed wound care orders with patient, and instructed patient to continue dressings as directed at last appointment. Patient voiced understanding [facility] 06-25-2024 History of Present illness Narrative Images from the original note were not included. Wound Care Progress Note Patient: Royce Delaney Date of : 1950 Chief Compliant: Wound of right leg New patient evaluation SUBJECTIVE/HPI: Royce is a 74 y.o. male who presents to [facility] for evaluation of 1 ulcer(s) on the right medial lower extremity. Patient established with wound clinic on 06/25/2024. Current daily wound care includes presents to wound care clinic with Guanako wrap in place. Patient reports he has been applying Silvadene to the wound bed as prescribed by PCP. Patient had right knee replacement proximally 6 weeks ago. This it likely is causing right leg edema. Patient does have known history of lymphedema and has lymphedema pumps at home. Patient has not been using lymphedema pumps since the surgery due to fear of spreading infection to his prosthetic knee. Measurable wound changes: New wound evaluation Patient accompanied by: Self, ambulatory with walker Nutritional screen shows patient does take in three servings of protein per day. Patient does deny fever, chills, sweats, or other signs of infection. Prescribed antibiotics: Recently prescribed clindamycin. Today's reported Blood Sugar: Non applicable Lab Results Component Value Date HGBA1C 6.3 (A) 06/21/2019 HGBA1C 6.3 05/31/2019 Tobacco use: denied - never a smoker Contributing comorbid conditions: BM I 47.10, 6 week history right knee replacement, Decrease ambulation Patient Active Problem List Diagnosis STEFF (obstructive sleep apnea) Dyspnea Non morbid obesity Essential hypertension Hyperlipidemia Gastroesophageal reflux disease without esophagitis Morbid obesity with BMI of 40.0-44.9, adult ([facility]) Encounter for colonoscopy due to history of colonic polyp Adenomatous polyp of transverse colon 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 Primary osteoarthritis of right knee Knee mass, right Lymphedema of both lower extremities 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 Class 3 severe obesity with body mass index (BMI) of 45.0 to 49.9 in adult ([facility]) Restless leg syndrome Psychophysiological insomnia Chronic midline low back pain without sciatica Weakness of both lower limbs Cervical stenosis of spinal canal Muscle weakness Balance problems Excessive daytime sleepiness Neuralgia Cellulitis of right lower extremity Mechanical loosening of internal right knee prosthetic joint, initial encounter ([facility]) Presence of right artificial knee joint S/P total knee arthroplasty, right Failure of outpatient treatment Bilateral leg edema Moderate aortic stenosis Lymphangitis Iron deficiency anemia, unspecified COPD (chronic obstructive pulmonary disease) ([facility]) Past Medical History: Diagnosis Date Anemia Arrhythmia Back pain 20 YEARS AGO Chronic pain disorder DJD (degenerative joint disease) Fractures right ribs GERD (gastroesophageal reflux disease) HL (hearing loss) mild HLD (hyperlipidemia) HTN (hypertension) in the past, no current medication Irregular heart beat Low back pain Morbid obesity ([facility]) Obesity STEFF (obstructive sleep apnea) bipap Pain Pneumonia 2014 RLS (restless legs syndrome) Varicella ASA KID Visual impairment glasses Past Surgical History: Procedure Laterality Date ANKLE ARTHROSCOPY Right COLONOSCOPY N/A 01/06/2023 Performed by Herman Haley DO at [facility] COLONOSCOPY N/A 10/12/2018 Performed by Sumit Mackey MD at [facility] DAVINCI REPAIR HERNIA VENTRAL WITH MESH N/A 12/15/2019 Performed by Ramon Monson DO at [facility] EYE SURGERY JOINT REPLACEMENT Left 2009 dr. booth knee REPLACEMENT TOTAL JOINT RIGHT KNEE Right 07/14/2019 Performed by Chico Sutton MD at [facility] SINUS SURGERY yrs ago TONSILLECTOMY AND ADENOIDECTOMY Current Outpatient Medications Medication Sig Dispense Refill atorvastatin (LIPITOR) 10 mg tablet Take 1 tablet (10 mg total) by mouth nightly. 90 tablet 2 clindamycin (CLEOCIN) 150 mg capsule Take 2 capsules (300 mg total) by mouth 3 (three) times a day for 5 days. 30 capsule 0 ferrous sulfate 325 (65 FE) mg tablet Take 1 tablet (325 mg total) by mouth nightly. 30 tablet 3 furosemide (LASIX) 40 mg tablet Take 1 tablet (40 mg total) by mouth 2 (two) times a day before meals. 90 tablet 1 omeprazole (PriLOSEC) 20 mg capsule Take 1 capsule (20 mg total) by mouth nightly. 90 capsule 2 pramipexole (MIRAPEX) 1.5 mg tablet Take 1 tablet (1.5 mg total) by mouth 3 (three) times a day. 270 tablet 2 silver sulfADIAZINE (SILVADENE, SSD) 1 % cream Apply 1 Application topically in the morning. 400 g 1 No current facility-administered medications for this visit. No Known Allergies The following portions of the patient's history were reviewed and updated as appropriate: allergies, current medications, past family history, past medical history, past social history, past surgical history, problem list, and medication reconciliation was completed including current medication and post discharge medication. Pain Scale: Pain Scale 0/10: 1 Review of Systems Constitutional: Negative. Negative for activity change, appetite change and fever. HENT: Negative. Negative for trouble swallowing. Respiratory: Positive for apnea (STEFF) and shortness of breath. Negative for cough and wheezing. Cardiovascular: Positive for leg swelling. Negative for chest pain and palpitations. Gastrointestinal: Negative. Negative for abdominal distention, nausea and vomiting. Genitourinary: Negative. Negative for dysuria, frequency and urgency. Musculoskeletal: Positive for arthralgias. Negative for neck stiffness. Skin: Positive for color change and wound. Neurological: Positive for light-headedness. Negative for numbness and headaches. Objective: Vitals: 06/25/24 1300 BP: 113/75 Pulse: 91 Resp: 18 Temp: 36.6 C (97.9 F) Physical Exam Vitals and nursing note reviewed. Constitutional: Appearance: He is well-developed. HENT: Head: Normocephalic and atraumatic. Cardiovascular: Rate and Rhythm: Normal rate and regular rhythm. Heart sounds: Normal heart sounds. No murmur heard. No gallop. Comments: Right DP/PT pulses palpable Right leg 2 to 3+ soft pitting edema Right leg increase in size compared to left + stemmers sign right leg - stemmers sign left Pulmonary: Effort: Pulmonary effort is normal. Breath sounds: Normal breath sounds. No wheezing or rales. Musculoskeletal: General: Normal range of motion. Cervical back: Normal range of motion. Skin: General: Skin is warm and dry. Neurological: Mental Status: He is alert and oriented to person, place, and time. Wound Assessment Wound 06/25/24 1 Calf Left;Posterior (Active) Wound Image 06/25/24 1400 Site Assessment Yellow;[place];Brown;Moist 06/25/24 144 Cammie-wound Assessment [place];White;Blanchable erythema 06/25/24 1447 Shape blocked 06/25/24 1447 Wound Length (cm) 7 cm 06/25/24 1400 Wound Width (cm) 10 cm 06/25/24 1400 Wound Surface Area (cm^2) 70 cm^2 06/25/24 1400 Wound Depth (cm) 0.1 cm 06/25/24 1400 Wound Volume (cm^3) 7 cm^3 06/25/24 1400 Drainage Description Serous;Yellow 06/25/24 144 Drainage Amount Small 06/25/24 1447 Debridement Performed? N 06/25/24 1447 Wound Bed Granulation (%) < 25% 06/25/24 1400 Wound Bed Slough (%) 75% to 100% 06/25/24 1400 Assessment/Plan/Education: 1. Blister of right lower extremity without infection, initial encounter 2. Cellulitis of right lower extremity Wash wound daily mild soap and water Cover with calcium alginate Ag Cover with dry max Secure with roll gauze Secure with Guanako wrap Change daily Patient reports he will be able to manage his own wound care Declines referral to home care 3. Lymphedema of both lower extremities Avoid prolonged leg dependency. Wash legs and feet every day, apply moisturizing lotion at night, avoid lotion between the toes. Raise feet above the level of the heart 10-15 min several times daily. Follow a low sodium diet. Wear compression stockings as prescribed. Guanako wrap right leg Calf pump exercises daily. Patient instructed in Other: Edema with blister care to right and calf. Short term goal: medical compliance MCFP goal: wound closure Patient verbalize ability to perform wound care. Follow up in wound clinic in 1 week for dressing change. If patient reports difficulty with dressing changes may offer home care. Follow up wound clinic in 2 weeks for provider evaluation. Instructed to contact wound clinic, PCP or ER should symptoms worsen. The patient was taught to watch for S/S of infection (redness, pus, pain, increased swelling, chills or fever) and to call the PCP or wound care clinic if such occurs. The patient was educated on offloading the area by avoiding direct pressure to the wound bed. Education as well as the pathophysiology of the disease process was provided on infection, edema, necrotic tissue and its relationship to nonhealing wounds. Education was also provided on treatment plan. Patient verbalized understanding. Total time spent was 23 minutes: Preparing to see the patient (e.g., review of tests) Obtaining and/or reviewing separately obtained history Performing a medically appropriate examination and/or evaluation Counseling and educating the patient/family/caregiver Ordering medications, tests, or procedures Documenting clinical information in the electronic or other health record - MARISA FERNANDEZ 06/25/24 3:32 PM Jo Stone APRN, STEPHEN, CWS, [facility]: [phone] MARISA Fernandez 06/25/24 1539 documented in this encounter [facility] 06-25-2024 Instructions MARISA Fernandez - 06/25/2024 2:00 PM EDT Wound Management Treatment Plan Wound Location(s): right leg HOW TO CARE FOR YOUR WOUND The following should be performed Daily and as needed. STEP 1: Cleanse wound with Soap and water, rinse well, and pat dry. STEP 2: Cover wound with Alginate with Silver, then dry max STEP 3: Secure dressings with Roll gauze/Kerlix ACTIVITY: NUTRITION: SKIN CARE: SWELLING CONTROL: Guanako wraps to be applied first thing in the morning and removed at bedtime. right leg wrap from base of toes to just below the knee. May require more than one wrap per leg. ITEMS TO FOLLOW UP ON: Length Width Depth Wound 06/25/24 1 Calf Left;Posterior-Wound Length (cm): 7 cm Wound 06/25/24 1 Calf Left;Posterior-Wound Width (cm): 10 cm Wound 06/25/24 1 Calf Left;Posterior-Wound Depth (cm): 0.1 cm Wound drainage Type Description small Serous serous documented in this encounter [facility] [place] 06-25-2024 History of Present illness Narrative Images from the original note were not included. [id number] [id number] SUBJECTIVE: Patient ID: Royce Delaney is a 74 y.o. male. 74 yo WM with recheck of lymphedema and cellulitis is finishing clindamycin, pt feels this is improving, saw vascular yesterday and they suggest continuing current tretment The following portions of the patient's history were reviewed and updated as appropriate: allergies, current medications, past family history, past medical history, past social history, past surgical history and problem list. REVIEW OF SYSTEMS: Review of Systems Cardiovascular: Positive for leg swelling. Skin: Positive for wound. PHYSICAL EXAMINATION: Vitals: 06/25/24 0932 BP: 140/84 BP Site: Left Arm BP Postition: Sitting BP CUFF SIZE: M (9-13 inches) Pulse: 80 Resp: 16 Temp: 36.7 C (98 F) TempSrc: Tympanic Weight: (!) 156.5 kg (345 lb) Height: 182.9 cm (6') Physical Exam Vitals and nursing note reviewed. Constitutional: Appearance: Normal appearance. HENT: Head: Normocephalic and atraumatic. Eyes: Extraocular Movements: Extraocular movements intact. Pupils: Pupils are equal, round, and reactive to light. Musculoskeletal: Right lower leg: Edema present. Left lower leg: Edema present. Skin: Findings: Erythema present. Neurological: General: No focal deficit present. Mental Status: He is alert and oriented to person, place, and time. Psychiatric: Mood and Affect: Mood normal. Behavior: Behavior normal. ASSESSMENT/PLAN: Royce was seen today for follow-up. Diagnoses and all orders for this visit: Lymphedema of both lower extremities - [facility] - [place], [place]; Future Essential hypertension Cellulitis of right lower extremity - clindamycin (CLEOCIN) 150 mg capsule; Take 2 capsules (300 mg total) by mouth 3 (three) times a day for 5 days. - [facility] - [place], [place]; Future Other orders - silver sulfADIAZINE (SILVADENE, SSD) 1 % cream; Apply 1 Application topically in the morning. Follow-up: Wound clinic Clindamycin , SSD cream as previous documented in this encounter [facility] 06-24-2024 Evaluation + Plan note Associated Problem(s): Lymphedema of both lower extremities Complex decongestive therapy. Referral to the lymphedema clinic. [facility] 06-24-2024 Evaluation + Plan note Associated Problem(s): Lymphangitis Continue antibiotics. Complex decongestive therapy and lymphedema clinic referral. [facility] 06-24-2024 Miscellaneous Notes Associated Problem(s): Lymphedema of both lower extremities Complex decongestive therapy. Referral to the lymphedema clinic. Associated Problem(s): Lymphangitis Continue antibiotics. Complex decongestive therapy and lymphedema clinic referral. documented in this encounter [facility] 06-24-2024 History of Present illness Narrative Images from the original note were not included. To: Megan Blank MD HPI: Royce Delaney is a 74 y.o. male with Bilateral lower extremity lymphedema. He recently had knee replacement surgery. That has close exacerbation of his lymphedema. He has right lower extremity lymphangitis he has been on antibiotics. There is a small little breakdown in the skin there.. Review of Systems: Review of Systems Constitutional: Negative. HENT: Negative. Respiratory: Negative. Cardiovascular: Negative. Gastrointestinal: Negative. Endocrine: Negative. Genitourinary: Negative. Musculoskeletal: Negative. Skin: Negative. Neurological: Negative. Hematological: Negative. Medications: Current Outpatient Medications on File Prior to Visit Medication Sig Dispense Refill atorvastatin (LIPITOR) 10 mg tablet Take 1 tablet (10 mg total) by mouth nightly. 90 tablet 2 ferrous sulfate 325 (65 FE) mg tablet Take 1 tablet (325 mg total) by mouth nightly. 30 tablet 3 furosemide (LASIX) 40 mg tablet Take 1 tablet (40 mg total) by mouth 2 (two) times a day before meals. 90 tablet 1 omeprazole (PriLOSEC) 20 mg capsule Take 1 capsule (20 mg total) by mouth nightly. 90 capsule 2 pramipexole (MIRAPEX) 1.5 mg tablet Take 1 tablet (1.5 mg total) by mouth 3 (three) times a day. 270 tablet 2 silver sulfADIAZINE (SILVADENE, SSD) 1 % cream Apply 1 Application topically in the morning. 50 g 1 aspirin 81 mg Take 1 tablet (81 mg total) by mouth in the morning. (Patient not taking: Reported on 06/24/2024) 150 tablet 2 No current facility-administered medications on file prior to visit. Past Medical History: Past Medical History: Diagnosis Date Anemia Arrhythmia Back pain 20 YEARS AGO Chronic pain disorder DJD (degenerative joint disease) Fractures right ribs GERD (gastroesophageal reflux disease) HL (hearing loss) mild HLD (hyperlipidemia) HTN (hypertension) in the past, no current medication Irregular heart beat Low back pain Morbid obesity (CMS-HCC) Obesity STEFF (obstructive sleep apnea) bipap Pain Pneumonia 2014 RLS (restless legs syndrome) Varicella ASA KID Visual impairment glasses Past Surgical History: Past Surgical History: Procedure Laterality Date ANKLE ARTHROSCOPY Right COLONOSCOPY N/A 01/06/2023 Performed by Herman Haley DO at [facility] COLONOSCOPY N/A 10/12/2018 Performed by Sumit Mackey MD at [facility] DAVINCI REPAIR HERNIA VENTRAL WITH MESH N/A 12/15/2019 Performed by Ramon Monson DO at [facility] EYE SURGERY JOINT REPLACEMENT Left 2009 dr. booth knee REPLACEMENT TOTAL JOINT RIGHT KNEE Right 07/14/2019 Performed by Chico Sutton MD at [facility] SINUS SURGERY yrs ago TONSILLECTOMY AND ADENOIDECTOMY Social and Family History: Social History Socioeconomic History Marital status: Spouse name: Not on file Number of children: Not on file Years of education: Not on file Highest education level: GED or equivalent Occupational History Not on file Tobacco Use Smoking status: Never Smokeless tobacco: Never Vaping Use Vaping status: Never Used Substance and Sexual Activity Alcohol use: No Drug use: No Sexual activity: Defer Other Topics Concern Not on file Social History Narrative Not on file Social Determinants of Health Financial Resource Strain: Low Risk (05/12/2024) Received from [facility] Overall Financial Resource Strain (CARDIA) Difficulty of Paying Living Expenses: Not hard at all Food Insecurity: No Food Insecurity (06/15/2024) Hunger Screening Food Insecurity - Worry: Never True Food Insecurity - Inability: Never True Transportation Needs: No Transportation Needs (05/25/2024) PRAPARE - Transportation Lack of Transportation (Medical): No Lack of Transportation (Non-Medical): No Physical Activity: Inactive (12/05/2019) Exercise Vital Sign Days of Exercise per Week: 0 days Minutes of Exercise per Session: 0 min Stress: No Stress Concern Present (12/05/2019) [place] [employer] - Occupational Stress Questionnaire Feeling of Stress : Not at all Social Connections: Socially Integrated (12/05/2019) Social Connection and Isolation Panel [NHANES] Frequency of Communication with Friends and Family: Twice a week Frequency of Social Gatherings with Friends and Family: Once a week Attends Confucianism Services: More than 4 times per year Active Member of Clubs or Organizations: Yes Attends Club or Organization Meetings: Never Marital Status: Interpersonal Safety: Unknown (05/31/2024) Received from [facility] Humiliation, Afraid, Rape, and Kick questionnaire Fear of Current or Ex-Partner: No Emotionally Abused: Not on file Physically Abused: Not on file Sexually Abused: Not on file Housing Instability: Low Risk (05/25/2024) Housing Instability Housing Instability: No Family History Problem Relation Age of Onset Lung disease Mother Pulmonary Fibrosis Lung cancer Mother Stroke Father Early Brother PROSTATE Prostate cancer Brother Colon cancer Brother Anesthesia problems Neg Hx Bleeding Disorder Neg Hx Recent Labs: Recent and relative labs were reviewed and interpreted and contributed to the assessment and plan below. Vitals: BP 130/80 (BP Site: Left Arm) Pulse 88 Ht 182.9 cm (6') Wt (!) 157.4 kg (347 lb) SpO2 95% BMI 47.06 kg/m Body mass index is 47.06 kg/m . Physical Exam: Physical Exam Constitutional: Appearance: Normal appearance. HENT: Head: Normocephalic and atraumatic. Mouth/Throat: Mouth: Mucous membranes are moist. Eyes: Extraocular Movements: Extraocular movements intact. Pupils: Pupils are equal, round, and reactive to light. Cardiovascular: Rate and Rhythm: Normal rate and regular rhythm. Pulmonary: Effort: Pulmonary effort is normal. Breath sounds: Normal breath sounds. Abdominal: General: Abdomen is flat. Bowel sounds are normal. Palpations: Abdomen is soft. Musculoskeletal: General: Normal range of motion. Cervical back: Normal range of motion. Skin: General: Skin is warm and dry. Neurological: General: No focal deficit present. Mental Status: He is alert and oriented to person, place, and time. Mental status is at baseline. Psychiatric: Mood and Affect: Mood normal. Behavior: Behavior normal. Thought Content: Thought content normal. Judgment: Judgment normal. Recent testing: Assessment and Plan: Problem List Lymphedema of both lower extremities Current Assessment & Plan Complex decongestive therapy. Referral to the lymphedema clinic. Relevant Orders Ambulatory referral to L[facility]hedema Clinic ([facility]) Ambulatory referral to Wound Care (Non[facility]) Lymphangitis - Primary Current Assessment & Plan Continue antibiotics. Complex decongestive therapy and lymphedema clinic referral. Relevant Orders Ambulatory referral to Lymphedema Clinic ([facility]) Ambulatory referral to Wound Care ([facility]) Royce was seen today for lymphedema of both lower extremities. Diagnoses and all orders for this visit: Lymphangitis - Ambulatory referral to Lymphedema Clinic ([facility]); Future - Ambulatory referral to Wound Care ([facility]); Future Lymphedema of both lower extremities [facility] [place] [place] - Ambulatory referral to Lymphedema Clinic ([facility]); Future - Ambulatory referral to Wound Care ([facility]); Future Cesar Valle MD, JOSEPH, RPVI, FSVS, FACS [facility] This note was created with the assistance of a speech recognition program. While intending to generate a timely document that accurately reflects the content of the visit, no guarantee can be provided that every grammatical or spelling mistake has been or will be identified or corrected. Thank you for your understanding. documented in this encounter [facility] 06-16-2024 Miscellaneous Notes Patient was not sure why Vascular was referred but he says he has a lot of appointments and right now he is not ready to schedule documented in this encounter [facility] 06-16-2024 Telephone encounter Note Patient was not sure why Vascular was referred but he says he has a lot of appointments and right now he is not ready to schedule [facility] 06-15-2024 History of Present illness Narrative Images from the original note were not included. [id number] [facility] [id number] SUBJECTIVE: Patient ID: Royce Delaney is a 74 y.o. male. 74 yo WM with ER f/u right leg swelling cellulitis, pt is some better, has some open areas The following portions of the patient's history were reviewed and updated as appropriate: allergies, current medications, past family history, past medical history, past social history, past surgical history and problem list. REVIEW OF SYSTEMS: Review of Systems Cardiovascular: Positive for leg swelling. Skin: Positive for wound. PHYSICAL EXAMINATION: Vitals: 06/15/24 1601 BP: 124/80 BP Site: Left Arm BP Postition: Sitting BP CUFF SIZE: L (13-17 inches) Pulse: 88 Resp: 16 Temp: 36.7 C (98 F) TempSrc: Tympanic Weight: (!) 157.6 kg (347 lb 8 oz) Height: 182.9 cm (6') Physical Exam Vitals and nursing note reviewed. Constitutional: Appearance: Normal appearance. HENT: Head: Normocephalic and atraumatic. Eyes: Extraocular Movements: Extraocular movements intact. Pupils: Pupils are equal, round, and reactive to light. Cardiovascular: Rate and Rhythm: Normal rate and regular rhythm. Pulses: Normal pulses. Heart sounds: Normal heart sounds. Pulmonary: Effort: Pulmonary effort is normal. Breath sounds: Normal breath sounds. Musculoskeletal: Right lower leg: Edema present. Left lower leg: Edema present. Skin: General: Skin is warm and dry. Findings: Erythema and lesion present. Neurological: General: No focal deficit present. Mental Status: He is alert and oriented to person, place, and time. Psychiatric: Mood and Affect: Mood normal. Behavior: Behavior normal. ASSESSMENT/PLAN: Royce was seen today for follow-up. Diagnoses and all orders for this visit: Lymphedema of both lower extremities - furosemide (LASIX) 40 mg tablet; Take 1 tablet (40 mg total) by mouth 2 (two) times a day before meals. Essential hypertension Pure hypercholesterolemia Cellulitis of right lower extremity - clindamycin (CLEOCIN) 150 mg capsule; Take 2 capsules (300 mg total) by mouth 3 (three) times a day for 5 days. Other orders - silver sulfADIAZINE (SILVADENE, SSD) 1 % cream; Apply 1 Application topically in the morning. Follow-up: Avoid salt elevation Lasix 40mg bid Cleocin x 15d Recheck in 10d Lymphedema clinic and vascular surgery documented in this encounter [facility] 06-10-2024 Miscellaneous Notes Contact Type: Direct contact - Phone call with patient - general Climate Change Risk Assessor spoke with home care nurse and patients right leg is swollen, red, uncomfortable and he does not feel the greatest. PCP does not have any availability today but saw the picture sent by nurse, and patient was advised to go to the ER to be evaluated for blood clot vs infection. Patient verbalized understanding and will go to ER. documented in this encounter [facility] 06-10-2024 Telephone encounter Note Contact Type: Direct contact - Phone call with patient - general Climate Change Risk Assessor spoke with home care nurse and patients right leg is swollen, red, uncomfortable and he does not feel the greatest. PCP does not have any availability today but saw the picture sent by nurse, and patient was advised to go to the ER to be evaluated for blood clot vs infection. Patient verbalized understanding and will go to ER. [facility] Work Phone: 06-04-2024 History of Present illness Narrative Images from the original note were not included. [id number] [id number] SUBJECTIVE: Transition of Care (*required) *Additional Questions/Concerns Requiring PCP Follow-Up: -Did not reach patient This documentation is being used for Transition of Care purposes: Yes Goal: Patient will demonstrate a safe transition from hospital to home Diagnosis on Discharge: DISCHARGE DIAGNOSES Principal Problem: Cellulitis of right lower extremity Active Problems: STEFF (obstructive sleep apnea) Essential hypertension Hyperlipidemia Gastroesophageal reflux disease without esophagitis Morbid obesity with BMI of 40.0-44.9, adult ([facility]) Restless leg syndrome Weakness of both lower limbs Balance problems Excessive daytime sleepiness Mechanical loosening of internal right knee prosthetic joint, initial encounter ([facility]) Failure of outpatient treatment Bilateral leg edema Moderate aortic stenosis Discharge Specialty: Other *Name of Discharging Facility: [facility] Date of Facility Discharge: Admission 05/25/24 Discharge 05/27/24 Date of Interactive Contact and Name of Medical Assistant Secretary: 05/28/24954 Unable to reach patient. LVM 05/28/24 1:29 pm Unable to reach patient *Medication Review Completed: No START taking: CEPHalexin (KEFLEX) potassium chloride (K-TAB,KLOR-CON) Medication Reconciliation Questions/Concerns: NA *Follow Up Appointments with Providers: Primary: Megan Blank MD 06/04/24 0945 Specialty: Specialty: Specialty: Review of Pending Lab/Diagnostic Tests and Plan for Completion: BMP Assessment and Support of Treatment Regimen Adherence and Medication Management: NA Education Provided by ACN to Support Self-Management, Independent Living and ADLs: NA Communication with Home Health Agencies and Other Services Utilized/Needed by the Patient: JINA Patient ID: Royce Delaney is a 74 y.o. male. 74 yo WM with transition of care visit for 05/25-05/27 hospital stay for cellulitis that developed on the right leg short ly after s/p TKA right 05/11-05/12, was sent home on keflex and doxycyxline and has completed this and now has no fever chills The following portions of the patient's history were reviewed and updated as appropriate: allergies, current medications, past family history, past medical history, past social history, past surgical history and problem list. REVIEW OF SYSTEMS: Review of Systems Cardiovascular: Positive for leg swelling. Musculoskeletal: Positive for arthralgias. PHYSICAL EXAMINATION: Vitals: 06/04/24 0937 BP: 136/80 BP Site: Left Arm BP Postition: Sitting BP CUFF SIZE: M (9-13 inches) Pulse: 80 Resp: 16 Temp: 36.6 C (97.9 F) TempSrc: Tympanic Weight: (!) 156.5 kg (345 lb) Height: 182.9 cm (6') Physical Exam Vitals and nursing note reviewed. Constitutional: Appearance: Normal appearance. HENT: Head: Normocephalic and atraumatic. Eyes: Extraocular Movements: Extraocular movements intact. Pupils: Pupils are equal, round, and reactive to light. Cardiovascular: Rate and Rhythm: Normal rate and regular rhythm. Pulses: Normal pulses. Heart sounds: Normal heart sounds. Pulmonary: Effort: Pulmonary effort is normal. Breath sounds: Normal breath sounds. Skin: General: Skin is warm and dry. Neurological: General: No focal deficit present. Mental Status: He is alert and oriented to person, place, and time. Psychiatric: Mood and Affect: Mood normal. Behavior: Behavior normal. ASSESSMENT/PLAN: Royce was seen today for barak. Diagnoses and all orders for this visit: Essential hypertension Pure hypercholesterolemia Lymphedema of both lower extremities Cellulitis of right lower extremity S/P total knee arthroplasty, right - [facility] - [place], [place]; Future Follow-up: Pt has completed all antibiotics Home ptx to transition to out pt Elevation , salt Pt has been in 3 lymphedema clinic f/u ortho documented in this encounter [facility] 06-04-2024 Miscellaneous Notes Addended by: MEGAN BLANK on: 06/04/2024 10:05 AM Modules accepted: Orders documented in this encounter [facility] 06-04-2024 Note Addended by: MEGAN CROCKER on: 06/04/2024 10:05 AM Modules accepted: Orders [facility] 05-31-2024 Note Orthopedic Surgery Subjective 05/12/2024 - Revision, Total Arthroplasty, Knee,stage 2, Except Patella With Intraop Frozen Sections - Right 05/31/24 Royce Delaney is a 74 y.o. male 19 days s/p Revision, Total Arthroplasty, Knee,stage 2, Except Patella With Intraop Frozen Sections - Right. Patient presents 19 days s/p revision RT TKA. Patient states that he was admitted to ER last week for cellulitis. Received Keflex and Doxycycline and is currently finishing regimen. Patient continues to have lymphedema. Denies any pain in surgical site. Endorses mild numbness at incision site. Denies chest pain, calf pain, or SOB. Patient states he is able to walk with assistance and the pain while walking is mild. Patient has been ambulating full weightbearing with the help of physical therapy. He is here for his review of the redness that has subsided in the right lower extremity. He continues to have severe swelling has been using ice as needed and Guanako wrap. He has been accompanied by his son today. Denies any fever, chills or rigors or any breathlessness. 05/24/24 Royce Delaney is a 74 y.o. male 19 days s/p Revision, Total Arthroplasty, Knee,stage 2, Except Patella With Intraop Frozen Sections - Right. Patient presents 12 days s/p revision RT TKA. He reports 9 days he began to have redness, pain, and swelling to the right knee. He denies drainage from the incision. The swelling is increased compared to his baseline lymphedema. He completed a full course of Keflex and is now on day 6 of Doxycycline. He denies fevers or chills. Denies chest pain, calf pain, or SOB. Patient is taking Aspirin for DVT prophylaxis. Patient has been NWB right lower extremity. Patient History Past Surgical History: Procedure Laterality Date ANKLE SURGERY Right COLONOSCOPY HERNIA REPAIR KNEE ARTHROSCOPY W/ DEBRIDEMENT TONSILLECTOMY TOTAL KNEE ARTHROPLASTY Bilateral Past Medical History: Diagnosis Date Anemia Class 3 obesity ([facility]) Colon polyp Diverticulosis Hyperlipidemia Hypertension Lumbosacral spondylosis without myelopathy Lymphedema of both lower extremities Mechanical loosening of internal right knee prosthetic joint, initial encounter ([facility]) OA (osteoarthritis) Onychomycosis RLS (restless legs syndrome) Sleep apnea Objective Exam: -Right knee surgical incision clean, dry, and intact. No drainage or erythema. - Erythema and edema from the becerril down to the foot. - Non-tender to palpation - No pain with passive flexion/extension of the knee or plantarflexion/dorsiflexion of the ankle - ROM limited by swelling - Sensation grossly intact distally - 2+ TP and DP pulse - Brisk capillary refill Lymphedema over the lower extremity bilateral right side worse than left side. Active flexion extension of the knee joint is well-maintained with flexion to about 95 degrees. Extension full. Distal neurovascular status intact. Imaging X-ray of the right knee in office 05/24/2024 : Were seen by myself and interpreted independently the show the patient has right revision knee arthroplasty with longstem prosthesis without any fracture or dislocation. No hardware complications. Diffuse soft tissue swelling with no soft tissue gas. These were shown and explained to the patient and his son. Assessment/Plan Royce Delaney is a 74 y.o. male s/p Revision, Total Arthroplasty, Knee,stage 2, Except Patella With Intraop Frozen Sections - Right (05/12/2024). Hardware is intact. Erythema, edema, and soft tissue swelling likely secondary to cellulitis. We have reassured the patient and the knee arthroplasty is well aligned. His redness has settled down. He will complete his course of antibiotics. He may use Guanako wrap which has been provided to him and may use ice as needed as mentioned. He will continue with strengthening of the lower extremity avoid twisting turning torquing or falling. - Continue to rest, elevate, and aggressively ice the RLE - Continue walking to strengthen the RLE and improve ROM. - Complete full course of doxycycline and Keflex - May use A-Strap to wrap RLE to help decrease swelling - If pain or swelling worsens or if patient develops fevers or chills he should call and inform the clinic - Follow up in 3 months time or earlier if required. All questions answered today. Patient is happy with the plan. We have reminded him to take oral antibiotics prior to dental work or colonoscopy. [facility] Orthopaedic Surgery 05/31/24 11:12 AM Office Visit Attestation GC: I personally saw this patient on the day of the encounter, performed the howard portion(s) of the service and participated in the management and confirm the medical student's documentation. Please note there may be an additional personal documentation from me. Dr. Gretel Chappell MD [employer] Helper orthopedic surgery Adult Reconstruction and Trauma [facility] (more content not included)... [facility] 05-28-2024 Miscellaneous Notes Transition of Care (*required) *Additional Questions/Concerns Requiring PCP Follow-Up: -Did not reach patient This documentation is being used for Transition of Care purposes: Yes Goal: Patient will demonstrate a safe transition from hospital to home Diagnosis on Discharge: DISCHARGE DIAGNOSES Principal Problem: Cellulitis of right lower extremity Active Problems: STEFF (obstructive sleep apnea) Essential hypertension Hyperlipidemia Gastroesophageal reflux disease without esophagitis Morbid obesity with BMI of 40.0-44.9, adult ([facility]) Restless leg syndrome Weakness of both lower limbs Balance problems Excessive daytime sleepiness Mechanical loosening of internal right knee prosthetic joint, initial encounter ([facility]) Failure of outpatient treatment Bilateral leg edema Moderate aortic stenosis Discharge Specialty: Other *Name of Discharging Facility: [facility] Date of Facility Discharge: Admission 05/25/24 Discharge 05/27/24 Date of Interactive Contact and Name of Medical Assistant Secretary: 05/28/24 8501 Unable to reach patient. LVM 05/28/24 1:29 pm Unable to reach patient *Medication Review Completed: No START taking: CEPHalexin (KEFLEX) potassium chloride (K-TAB,KLOR-CON) Medication Reconciliation Questions/Concerns: NA *Follow Up Appointments with Providers: Primary: Megan Blank MD 06/04/24 6556 Specialty: Specialty: Specialty: Review of Pending Lab/Diagnostic Tests and Plan for Completion: BMP Assessment and Support of Treatment Regimen Adherence and Medication Management: NA Education Provided by ACN to Support Self-Management, Independent Living and ADLs: NA Communication with Home Health Agencies and Other Services Utilized/Needed by the Patient: NA documented in this encounter [facility] 05-28-2024 Telephone encounter Note Transition of Care (*required) *Additional Questions/Concerns Requiring PCP Follow-Up: -Did not reach patient This documentation is being used for Transition of Care purposes: Yes Goal: Patient will demonstrate a safe transition from hospital to home Diagnosis on Discharge: DISCHARGE DIAGNOSES Principal Problem: Cellulitis of right lower extremity Active Problems: STEFF (obstructive sleep apnea) Essential hypertension Hyperlipidemia Gastroesophageal reflux disease without esophagitis Morbid obesity with BMI of 40.0-44.9, adult ([facility]) Restless leg syndrome Weakness of both lower limbs Balance problems Excessive daytime sleepiness Mechanical loosening of internal right knee prosthetic joint, initial encounter ([facility]) Failure of outpatient treatment Bilateral leg edema Moderate aortic stenosis Discharge Specialty: Other *Name of Discharging Facility: [facility] Date of Facility Discharge: Admission 05/25/24 Discharge 05/27/24 Date of Interactive Contact and Name of Medical Assistant Secretary: 05/28/24954 Unable to reach patient. LV 05/28/24 1:29 pm Unable to reach patient *Medication Review Completed: No START taking: CEPHalexin (KEFLEX) potassium chloride (K-TAB,KLOR-CON) Medication Reconciliation Questions/Concerns: NA *Follow Up Appointments with Providers: Primary: Megan Blank MD 06/04/24 2233 Specialty: Specialty: Specialty: Review of Pending Lab/Diagnostic Tests and Plan for Completion: BMP Assessment and Support of Treatment Regimen Adherence and Medication Management: NA Education Provided by ACN to Support Self-Management, Independent Living and ADLs: NA Communication with Home Health Agencies and Other Services Utilized/Needed by the Patient: NA [facility] 05-24-2024 Note Attestation signed by Gretel Chappell MD at 05/25/2024 7:56 PM I have not seen the patient personally, he was seen as postop follow up by oncall orthopedic surgery resident, Dr Ernie MD. Care was discussed with my resident Dr Ta BOLANOS Orthopedic Surgery Subjective 05/12/2024 - Revision, Total Arthroplasty, Knee,stage 2, Except Patella With Intraop Frozen Sections - Right 05/25/24 Royce Delaney is a 74 y.o. male 12 days s/p Revision, Total Arthroplasty, Knee,stage 2, Except Patella With Intraop Frozen Sections - Right. Patient presents 12 days s/p revision RT TKA. He reports 9 days he began to have redness, pain, and swelling to the right knee. He denies drainage from the incision. The swelling is increased compared to his baseline lymphedema. He completed a full course of Keflex and is now on day 6 of Doxycycline. He denies fevers or chills. Denies chest pain, calf pain, or SOB. Patient is taking Aspirin for DVT prophylaxis. Patient has been NWB right lower extremity. Patient History Past Surgical History: Procedure Laterality Date ANKLE SURGERY Right COLONOSCOPY HERNIA REPAIR KNEE ARTHROSCOPY W/ DEBRIDEMENT TONSILLECTOMY TOTAL KNEE ARTHROPLASTY Bilateral Past Medical History: Diagnosis Date Anemia Class 3 obesity (CMS/HCC) Colon polyp Diverticulosis Hyperlipidemia Hypertension Lumbosacral spondylosis without myelopathy Lymphedema of both lower extremities Mechanical loosening of internal right knee prosthetic joint, initial encounter ([facility]) OA (osteoarthritis) Onychomycosis RLS (restless legs syndrome) Sleep apnea Objective Exam: - Incision clean, dry, and intact. No drainage or erythema. - Erythema and edema from the becerril down to the foot. - Non-tender to palpation - No pain with passive flexion/extension of the knee or plantarflexion/dorsiflexion of the ankle - ROM limited by swelling - Sensation grossly intact distally - 2+ TP and DP pulse - Brisk capillary refill Imaging X-ray of the right knee in office today 05/25/2024: Intact RT TKA with no hardware complications. Diffuse soft tissue swelling with no soft tissue gas Assessment/Plan Royce Delaney is a 74 y.o. male s/p Revision, Total Arthroplasty, Knee,stage 2, Except Patella With Intraop Frozen Sections - Right (05/12/2024). Hardware is intact. Erythema, edema, and soft tissue swelling likely secondary to cellulitis. - Continue to rest, elevate, and aggressively ice the RLE - Complete full course of doxycycline - May use GUANAKO bandage to wrap RLE to help decrease swelling - If pain or swelling worsens or if patient develops fevers or chills he should call and inform the clinic -Follow up in 1 week Isaac Klein MD Orthopaedic Surgery 05/25/24 3:21 PM Isaac Klein MD Orthopaedic Surgery, Resident PGY-1 Ortho Pager [phone] 05/25/24 3:33 PM May contact the on-call resident with any concerns via the Orthopaedic pager at any time. [facility] 05-18-2024 Miscellaneous Notes Elsa from [facility] PT-she thinks Royce is developing cellulitis lower right leg, he is on a 5 day course of antibiotics, surgeon has been notified but she wanted you to know as well, any questions you can call her [phone] Please call pt - what antibiotic is he on ?, he will run out on Friday?, is it helping? Patient is on Keflex, has 2 more days, not sure if its helping Doxycyclinr rx to [facility] for 10d Patient notified of message and verbalizes understanding documented in this encounter [facility] 05-18-2024 Telephone encounter Note Elsa from [facility] PT-she thinks Royce is developing cellulitis lower right leg, he is on a 5 day course of antibiotics, surgeon has been notified but she wanted you to know as well, any questions you can call her [phone] [facility] 05-18-2024 Telephone encounter Note Please call pt - what antibiotic is he on ?, he will run out on Friday?, is it helping? [facility] 05-18-2024 Telephone encounter Note Patient is on Keflex, has 2 more days, not sure if its helping [facility] 05-18-2024 Telephone encounter Note Doxycyclinr rx to [facility] 10d [facility] 05-18-2024 Telephone encounter Note Patient notified of message and verbalizes understanding [facility] 05-13-2024 Note Attestation signed by Carrie White PT at 05/13/2024 4:10 PM This blog writer present and provided 1:1 supervision and direction of patient care. Carrie White PT, MPT Physical Therapy Physical Therapy Evaluation Patient Name: Royce Delaney : 1950 Today's Date: 05/13/2024 Royce Delaney is a 74 y/o male s/p R TKA revision on 05/12/2024. He reports having worsening knee pain over past several months and a feeling of instability. Initial R TKA was in 06/2019 and previous L TKA. Student PT, Melodie Trotter, was involved in the care of this patient with line of sight supervision of the signing therapist. . Discharge: Home with Home PT General Family/Caregiver Present: No Subjective: RN approved OOB activity at this time. Pt in bed upon arrival, friendly and willing to work with lionel ngofélixue he wants to go home. Upon completion, pt in recliner, call light in reach, legs elevated, and nurse notified. 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, initial encounter ([facility]) Past Medical History: Diagnosis Date Anemia Class 3 obesity ([facility]) Colon polyp Diverticulosis Hyperlipidemia Hypertension Lumbosacral spondylosis without myelopathy Lymphedema of both lower extremities Mechanical loosening of internal right knee prosthetic joint, initial encounter ([facility]) OA (osteoarthritis) Onychomycosis RLS (restless legs syndrome) Sleep apnea Past Surgical History: Procedure Laterality Date ANKLE SURGERY Right COLONOSCOPY HERNIA REPAIR KNEE ARTHROSCOPY W/ DEBRIDEMENT TONSILLECTOMY TOTAL KNEE ARTHROPLASTY Bilateral Precautions Precautions LE Weight Bearing Status: WBAT, Right Medical Precautions: fall risk, IV, TKA Pain Pain Assessment Pain Assessment: 0-10 Pain Score: 5 - Moderate pain Pain Type: Acute pain, Surgical pain Pain Location: Knee (pt reported pain in medial thigh as well and states the nerve block is wearing off.) Cognition Cognition Overall Cognitive Status: Within Functional Limits Arousal/Alertness: Appropriate responses to stimuli Orientation Level: Oriented X4 Following Commands: Follows all commands and directions without difficulty Safety Judgment: Good awareness of safety precautions Awareness of Errors: Good awareness of errors made Deficits: Fully aware of deficits Attention Span: Appears intact Memory: Appears intact Problem Solving: Able to problem solve independently Communication: Intact General Assessment General Assessment Hearing: WFL Skin Integrity: Incision and bandage on R knee from TKA Edema: BLE guanako wrap to reduce significant lymphedema; RLE worse than LLE. Hand Dominance: Right Home Living Home Living Type of Home: House Lives With: Spouse ( has MS and pt acts as primary caregiver) Home Adaptive Equipment: Walker rolling, Cane, Sock aid, E M Assembler, Long-handled shoehorn Home Living Comments: Patient has son and daughter/granddaughter that live in town who are able to help if needed; pt resistant to calling them for help Home Layout: Laundry in basement, One level (States son will be moving laundry on main level upon his discharge.) Home Access: Other (Comment) (1 VA into door, then right turn to 2 more steps into kitchen w/ HALEY HR) Bathroom Shower/Tub: Walk-in shower Bathroom Toilet: Standard Bathroom Equipment: Grab bars around toilet, Raised toilet seat with rails, Hand-held shower, Grab bars in shower, Shower chair with back Prior Level of Function Prior Function Level of Cotton: Independent with ADLs and functional transfers, Independent with homemaking with ambulation (drives) Prior Functional Mobility: Independent without device Receives Help From: Family (son, daughter, granddaughter) ADL Assistance: Independent Homemaking Assistance: Independent Vision Basic Assessment Vision - Basic Assessment Current Vision: Wears glasses all the time Activity Tolerance Activity Tolerance Endurance: Stage III Activity Tolerance Comments: Sounded SOB when seated EOB during ADLs tasks, while ambulating, and once seated in reclienr at end of session. Pt reports this is his baseline tolerance General Assessments Activity Tolerance Endurance: Stage III Activity Tolerance Comments: Sounded SOB when seated EOB during ADLs tasks, while ambulating, and once seated in reclienr at end of session. Pt reports this is his baseline tolerance Sensation Sensation Comments: pt reprots n/t in R foot Coordination Movements are Fluid and Coordinated: Yes (more content not included)... [facility] 05-13-2024 Note Attestation signed by Palmira Rosenthal OT at 05/13/2024 4:15 PM This blog writer present and provided 1:1 supervision and direction of patient care. Thiago JONES/Kadie, MOT Occupational Therapy Occupational Therapy Evaluation Patient Name: Royce Delaney : 1950 Today's Date: 05/13/2024 Time in: 1040 Time out: 1110 Surgery type: R TKA revision Surgery date: 05/12/24 RN OK for patient to be seen out of bed at this time. Pt was in bed upon arrival and agreeable to session. Completed functional ambulation, demo'd sock aid, donned LB clothing. Pt returned to chair with call light and needs in reach. RN aware of pt performance. General Subjective: 74y/oM to hospital from home s/p revision R total knee arthroplasty, stage 2. Pt had a R total knee replacement in 2019 but c/o R knee pain and feelings of instability when he ambulates for the last several months. Also had L total knee replacement prior to R side. 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, initial encounter ([facility]) Past Medical History: Diagnosis Date Anemia Class 3 obesity ([facility]) Colon polyp Diverticulosis Hyperlipidemia Hypertension Lumbosacral spondylosis without myelopathy Lymphedema of both lower extremities Mechanical loosening of internal right knee prosthetic joint, initial encounter ([facility]) OA (osteoarthritis) Onychomycosis RLS (restless legs syndrome) Sleep apnea Past Surgical History: Procedure Laterality Date ANKLE SURGERY Right COLONOSCOPY HERNIA REPAIR KNEE ARTHROSCOPY W/ DEBRIDEMENT TONSILLECTOMY TOTAL KNEE ARTHROPLASTY Bilateral Precautions Precautions LE Weight Bearing Status: WBAT, Right Medical Precautions: fall risk, IV, TKA Pain Pain Assessment Pain Assessment: 0-10 Pain Score: 6 Pain Location: (site of nerve block) Cognition Cognition Overall Cognitive Status: Within Functional Limits Arousal/Alertness: Appropriate responses to stimuli Following Commands: Follows all commands and directions without difficulty Safety Judgment: Decreased awareness of need for assistance Awareness of Errors: Good awareness of errors made Deficits: Fully aware of deficits Attention Span: Appears intact Memory: Appears intact Problem Solving: Able to problem solve independently Communication: Intact General Assessment General Assessment Hearing: intact Skin Integrity: haley LE wrapped in guanako wrap Edema: lymphedema in haley LE but worse in RLE Hand Dominance: Right Home Living Home Living Type of Home: House Lives With: Spouse ( has MS but pt reports he does not have to physically assist) Home Adaptive Equipment: Walker rolling, Cane, Sock aid, Long-handled shoehorn, E M Assembler Home Layout: Laundry in basement, One level (basement 12 steps down but reports children will assist with laundry) Home Access: Other (Comment) (1 AV onto platform without rails, then 2 VA kitchen with haley rails) Bathroom Shower/Tub: Walk-in shower Bathroom Toilet: Standard Bathroom Equipment: Raised toilet seat with rails, Grab bars around toilet, Grab bars in shower, Shower chair with back Prior Level of Function Prior Function Level of Cotton: Independent with ADLs and functional transfers, Independent with homemaking with ambulation Prior Functional Mobility: Independent without device Receives Help From: Family (son, daughter, granddaughter) ADL Assistance: Independent Homemaking Assistance: Independent Prior IADLs Static Sitting Balance Static Sitting Balance Static Sitting-Balance Support: Right upper extremity supported, Left upper extremity supported, Unilateral upper extremity supported, Feet supported Static Sitting-Level of Assistance: Distant supervision Dynamic Sitting Balance Dynamic Sitting Balance Dynamic Sitting-Balance Support: Right upper extremity supported, Left upper extremity supported, Unilateral upper extremity supported, Feet supported Dynamic Sitting-Balance: Forward lean, Lateral lean Dynamic Sitting Balance-Level of Assistance: Close supervision Static Standing Balance Static Standing Balance Static Standing-Balance Support: Right upper extremity supported, Left upper extremity supported, With device (RW) Static Standing-Level of Assistance: Contact guard Dynamic Standing Balance Dynamic Standing Balance Dynamic Standing-Balance Support: Right upper extremity supported, Left upper extremity supported, Unilater (more content not included)... [facility] 05-13-2024 Note 05/13/24 1243 Referral Data Referral Source Physician Referral Reason Information Activities of Daily Living Assistive Device Other (Comment) (Has cane, rolling walker, shower chair, raised toilet seat.) Living Arrangement (Current/Prior to Hospitalization) Private residence (1 story home w/ 3 steps to enter.) Ambulation Independent Dressing Independent Feeding Independent Behavior Oriented Communication Talks;Understands speaking;Understands Dominican Discharge Planning Support Systems Spouse/significant other;Children (Lives w/ who has MS and unable to assist, has 2 local children who are supportive.) Type of Residence Private residence Will patient need Precert for Post Acute needs? No Patient's goal for discharge Home with [facility]. Does the patient need discharge transport arranged? No Screened pt at bedside who is alert/ox4. Pt lives at home with his who has MS and is unable to assist, however, he also has 2 adult children that are both local/supportive. OT/PT evaluated and recommended C and pt is agreeable to this and would like to try for [facility] as his is already active with them. Advised pt it may come down to insurance and he stated he does not have a preference in alternative providers if needed. Referrals sent to [facility] and [facility]. UPDATE 1PM- [facility] accepted. Updated the AVS and sent via Careport as pt's ready for discharge. [facility] 05-13-2024 Note 05/13/24 0904 Admission Assessment Questions Verify insurance with patient Yes Do you understand medical disease or what brought you into the hospital? Yes Who is your current PCP? Megan Blank MD Can I schedule a follow up appointment for you at the time of discharge? Yes Do you understand why you are taking your current medications? Yes Are you taking your medications as prescribed? Yes Did patient provide teach back? Yes Pharmacy Bedside Delivery Status Interested Does the patient have a top case assembler assigned to them through their insurance? No Living Arrangement (Current/Prior to Hospitalization) Private residence (Lives with ) Does the patient have history of HHC or SNF? [facility] Assistive Device Walker;Cane;Grab bars;Raised toilet seat Patient's goal for discharge to return home Was patient reminded that goal for discharge is 11am? Yes Does the patient have transportation at discharge? Yes Type of Residence Private residence Is PT/OT appropriate? Yes Is PT/OT ordered? Yes Is SW consult appropriate? Yes Is SW consult ordered? Yes Do you understand the benefits of MyChart? Yes Were you able to send link and activate MyChart? No Patient reports he is coming from home where is lives with . Patient reports he primary caregiver for his . Reports hx of [facility]. [facility] 05-13-2024 Note Attestation signed by Gretel Chappell MD at 05/13/2024 10:49 AM I have not seen patient today, care was discussed with my resident in ortho surgery Dr Dwayne Sparrow Orthopedic Surgery Progress Note Attending: Dr. Chappell SUBJECTIVE: No acute events. Pain controlled. GUANAKO wraps placed to bilateral lower extremities yesterday to aid with post-op swelling. States he is ready to try to work with therapy today and get home to his . OBJECTIVE BP 125/74 (BP Location: Left arm, Patient Position: Lying) Pulse 84 Temp 36.8 ???C (98.2 ???F) (Oral) Resp 16 Ht 1.854 m (6' 1 ) Wt (!) 162 kg (356 lb 7.7 oz) SpO2 94% BMI 47.03 kg/m??? General: A/Ox3, resting comfortably in bed, cooperative MSK: Right LE - Full GUANAKO wrap compression garments in place - Compartments of lower leg are swollen but soft and compressible - SILT in superficial peroneal, deep peroneal, sural, saph nerve dist - Motor function intact in tibial, deep peroneal, superficial peroneal dist - Strength exam deferred - Digits WWP, BCRx5 Labs: Labs: Lab Results Component Value Date HGB 11.5 (L) 05/13/2024 No results found for: CREATININE No results found for: CRP No results found for: SEDRATE No results found for: CULTURE ASSESSMENT: Royce Delaney is a 74 y.o. male s/p RIGHT REVISION, TOTAL ARTHROPLASTY, KNEE,STAGE 2, EXCEPT PATELLA WITH INTRAOP FROZEN SECTIONS [id number] - [place] REVJ TOT KNEE ARTHRP FEM&ENTIRE TIBIAL COMPONE (DOS: 05/12/24) PLAN -Post-op Xrays reviewed -Follow up intra-op cultures: pending, NGTD -Weightbearing and activity status: WBAT RLE -Regarding PT/OT: Continue to eval while inpt, appreciate recs -Pain mgmt: Multimodal, continue current regimen -Antibiotics: Ancef completed, transitioned to Keflex today -Vit D/Ca supplementation while inpt and at dc -Wound care: surgical dressing to remain in place until follow up, reinforce as needed. Dressings to be kept clean and dry. Do not soak or submerge. -DVT ppx: ASA 325 BID, WBAT RLE, SCD's -Stressed importance of ice and elevation to RLE to decrease swelling post-op -Dispo: pending PT/OT recs and eval -Call Ortho with any questions or concerns Lyle Stockton, MS4 [facility] 05/13/24 6:25 AM Dwayne Sparrow MD Orthopedic Surgery, PGY-2 Pager: [phone] 05/13/24 7:33 AM [facility] [facility] Note Patient: Royce fournier Procedure Summary Date: 05/12/24 Room / Location: [facility] OPERATING ROOM 02 / [facility] Operating Room Anesthesia Start: 1108 Anesthesia Stop: 1524 Procedure: REVISION, TOTAL ARTHROPLASTY, KNEE,STAGE 2, EXCEPT PATELLA WITH INTRAOP FROZEN SECTIONS (Right: Knee) Diagnosis: Mechanical loosening of internal right knee prosthetic joint, initial encounter (CMS/HCC) Instability of internal right knee prosthesis, initial encounter (CMS/[facility]) Class 3 obesity with alveolar hypoventilation and body mass index (BMI) of 40.0 to 44.9 in adult, unspecified whether serious comorbidity present (CMS/HCC) (Mechanical loosening of internal right knee prosthetic joint, initial encounter (CMS/[facility]) [T84.032A]) Surgeons: Gretel Chappell MD Responsible Provider: Talita Kaminski MD Anesthesia Type: general, regional ASA Status: 3 Anesthesia Type: general, regional Vitals Value Taken Time BP 151/96 05/12/24 1550 Temp 36.4 ???C (97.5 ???F) 05/12/24 1520 Pulse 94 05/12/24 1550 Resp 15 05/12/24 1550 SpO2 0 % 05/12/24 1550 Anesthesia Post Evaluation Patient location during evaluation: bedside Patient participation: complete - patient participated Level of consciousness: awake Pain score: 3 Pain management: adequate Airway patency: patent Two or more strategies used to mitigate risk of obstructive sleep apnea Cardiovascular status: acceptable Respiratory status: acceptable Hydration status: acceptable Patient is hemodynamically stable and is able to be discharged from PACU per anesthesia protocol. No notable events documented. [facility] 05-12-2024 Note Patient: Royce fournier Procedure Summary Date: 05/12/24 Room / Location: [facility] OPERATING ROOM 02 / [facility] Operating Room Anesthesia Start: 1108 Anesthesia Stop: Procedure: REVISION, TOTAL ARTHROPLASTY, KNEE,STAGE 2, EXCEPT PATELLA WITH INTRAOP FROZEN SECTIONS (Right: Knee) Diagnosis: Mechanical loosening of internal right knee prosthetic joint, initial encounter (CMS/[facility]) Instability of internal right knee prosthesis, initial encounter ([facility]) Class 3 obesity with alveolar hypoventilation and body mass index (BMI) of 40.0 to 44.9 in adult, unspecified whether serious comorbidity present (CMS/[facility]) (Mechanical loosening of internal right knee prosthetic joint, initial encounter ([facility]) [T84.032A]) Surgeons: Gretel Chappell MD Responsible Provider: Talita Kaminski MD Anesthesia Type: general, regional ASA Status: 3 Anesthesia Post Transport Note Transport to: PACU O2 Route: face mask Oxygen Flow (L/min): 8 Airway adjunct: nasal airway Patient Monitor: direct observation Transport: uneventful Patient condition is: stable [facility] 05-12-2024 Note Peripheral Block Patient location during procedure: OR Start time: 05/12/2024 2:55 PM End time: 05/12/2024 3:13 PM Reason for block: at surgeon's request and post-op pain management Staffing Performed: resident/GENERAL MAGISTRATE/CAA Anesthesiologist: Talita Kaminski MD Resident/GENERAL MAGISTRATE: Ollie Nielsen MD Preanesthetic Checklist Completed: patient identified, IV checked, site marked, risks and benefits discussed, surgical consent, monitors and equipment checked, pre-op evaluation and timeout performed Peripheral Block Patient position: supine Prep: ChloraPrep Patient monitoring: heart rate, continuous pulse ox and case monitor Block type: adductor canal block Laterality: right Injection technique: single-shot Guidance: ultrasound guided Needle Needle type: short-bevel Needle gauge: 21 G Needle length: 4 in Needle localization: ultrasound guidance Medications Administered bupivacaine HCl (Marcaine) 0.5 % (5 mg/mL) injection - injection 150 mg - 05/12/2024 2:55:00 PM Assessment Injection assessment: negative aspiration for heme Paresthesia pain: none Heart rate change: no Slow fractionated injection: yes [facility] 05-12-2024 Note Airway Date/Time: 05/12/2024 11:16 AM Urgency: elective Airway not difficult General Information and Staff Patient location during procedure: OR Anesthesiologist: Talita Kaminski MD Resident/GENERAL MAGISTRATE/CAA: JAMES Ramos Performed: resident/GENERAL MAGISTRATE/CAA and other anesthesia staff Learner assisted: Cornel Baer MS4 Indications and Patient Condition Indications for airway management: anesthesia Spontaneous Ventilation: absent Sedation level: deep Preoxygenated: yes Patient position: sniffing Mask difficulty assessment: 2 - vent by mask + OA or adjuvant +/- NMBA No planned trial extubation Final Airway Details Final airway type: endotracheal airway Successful airway: ETT Cuffed: yes Successful intubation technique: video laryngoscopy Facilitating devices/methods: intubating stylet Blade: Pratt Blade size: #3 ETT size (mm): 7.5 Cormack-Lehane Classification: grade I - full view of glottis Placement verified by: chest auscultation and capnometry Measured from: lips ETT to lips (cm): 23 Number of attempts at approach: 1 [facility] 05-12-2024 Note Patient: Royce fournier Procedure Information Date/Time: 05/12/24 1145 Procedure: REVISION, TOTAL ARTHROPLASTY, KNEE, ALL COMPONENTS STAGE 1 VS. STAGE 2 WITH INTRAOP FROZEN SECTIONS (Right: Knee) - JULIA IN, PLAN FOR S&N REVISION, REP NOTIFIED 05/03 ZENAIDA Location: [facility] OPERATING ROOM 02 / [facility] Operating Room Surgeons: Gretel Chappell MD Relevant Problems No relevant active problems Clinical information reviewed: Tobacco Allergies Meds Problems Med Hx Surg Hx Fam Hx Soc Hx Physical Exam Airway Mallampati: II TM distance: >3 FB Neck ROM: full Cardiovascular Rhythm: regular Rate: normal Dental - normal exam Pulmonary (+) decreased breath sounds Abdominal Abdomen: soft Anesthesia Plan ASA 3 general intravenous induction Anesthetic plan and risks discussed with patient. Use of blood products discussed with patient who. Plan discussed with attending and CAA. Additional Equipment Requests [facility] 05-03-2024 Note Medications to take AM day of procedure with sips water only: NONE Medication Hold instructions: NSAIDs (Motrin,Aleve): 5 days prior to procedure Vitamins/Supplements: 5 days prior to procedure IF YOU ARE GOING HOME AFTER YOUR SURGERY OR PROCEDURE, FOR YOUR SAFETY, YOUR SURGERY WILL BE CANCELLED IF BOTH OF THE FOLLOWING ARE NOT AVAILABLE: An adult straddle truck driver over the age of 18, that can receive information about your care after surgery, and drive you home. A responsible adult to stay with you for 24 hours in case of an emergency. Can be same as above. The highest risk of complications is within the first 24 hours after sedation/anesthesia. Nothing to eat or drink after midnight the night before surgery. This includes gum, candy, mints, and lozenges. No alcohol, marijuana, or tobacco products including vaping for 24 hours. Please brush your teeth; don't swallow the toothpaste or water. If you use dentures, wear them but do not use paste. Please leave any other removable dental hardware at home. Do not put in contact lenses. Do not wear perfume, make-up, nail new zealander, or lotions on the day of your surgery or procedure. Follow skin-prep/wipe instructions as below if required. Bring with you: *Insurance card *Photo ID *Medication list *Co-pay for visit/prescriptions If applicable: *Rescue inhalers *Green bracelet from lab *CPAP or BiPAP machine, if staying overnight *Any braces, splints, or equipment ordered preoperatively *Remote controls for implanted devices Leave at home: *Purse/Wallet/Perez- unless needed for co-pay *Cell phone (can leave with family/friend or place in locker if needed) *Jewelry (including piercings and wedding bands) *If not possible, ask the person who is waiting with you to keep them Children under the age of 12 will not be allowed into patient care areas. We will call you between 3pm and 4pm the day before your surgery to give you an arrival time. If you do not receive this call, have any questions, or need to make any changes, please call [phone]. Notify your surgeon if you develop any illness such as a cold, cough, fever, sore throat or vomiting between now and your surgery. Thank you for entrusting us with your care. [facility] Surgical Services Team [facility] 04-27-2024 Note I spoke to the vandana boston for pre-operative education and discharge planning prior to his joint replacement surgery. The patient would like to discharge to home following his release from the hospital. He has 1 step to get into his home and once he is inside everything remains on one floor. He will have support at home. He has a raised toilet seat and shower chair and will get a rolling walker. He will decide after surgery if he wants [facility] or outpatient therapy. [facility] 04-20-2024 Miscellaneous Notes Pt has fasting labs to do from October and I added an EKG, we can use appt from 03/10 and donot need appt , but I need pt to do fasting labs and EKG Patient notified to complete testing and we will call him with results/clearance documented in this encounter [facility] 04-20-2024 Telephone encounter Note Pt has fasting labs to do from October and I added an EKG, we can use appt from 03/10 and donot need appt , but I need pt to do fasting labs and EKG [facility] 04-20-2024 Telephone encounter Note Patient notified to complete testing and we will call him with results/clearance [facility] 04-19-2024 Note Orthopedic Surgery Subjective New Patient and Pain of the Right Knee 04/19/24 Royce Delaney is a 74 y.o. male presenting for evaluation of right knee pain. Patient reports that he has had pain of his right knee for the last several months, which is worse with walking. Patient reports that he has a history of a right total knee replacement performed by Dr. Chico Sutton MD at [facility] 5 years ago on 14 July 2019. Patient reports that over the last several months he has had increasing pain and feeling of instability when he ambulates. He denies any numbness or tingling of his right lower extremity. Patient presents for Dr. Elvis BOLANOS as he is also s/p left primary total knee arthroplasty done by Dr. Leal prior to his right knee joint. He was evaluated by Dr. Leal and has been referred to me for further evaluation and treatment. Patient does not want to go back to his prior surgeon for revision of his right knee arthroplasty as he believes that he is never felt right following his knee arthroplasty and he does not trust them anymore. Patient denies change in his general health. Patient has a complex medical history of severe cervical spondylosis at C1-C2 and C3 along with calcification of the posterior longitudinal ligament. Patient reports that he has also had a left total knee arthroplasty performed [address] Emmy RAM. Patient reports no issues of his left knee at this time. Patient has a medical history of chronic lymphedema bilateral lower extremities. 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 Patient states he is unable to walk and wants to proceed with his revision knee arthroplasty as soon as possible as he has to look after his . Patient denies any fever, chills or rigors and breathlessness. Patient History Past Surgical History: Procedure Laterality Date ANKLE SURGERY Right HERNIA REPAIR TONSILLECTOMY TOTAL KNEE ARTHROPLASTY Bilateral No past medical history on file. Objective General: Body mass index is 47.1 kg/m???. No acute distress, comfortable Class III obesity noted. Severe antalgia. Right Knee: Inspection- no ecchymosis, no edema, no effusion Tender to palpation over medial joint line, otherwise non-tender Bilateral incisions over the knee joints have healed well including the right knee joint. Patient has stasis around the becerril on both sides suggestive of poor circulation as well as varicose distal veins noted right side worse than left side. Distal pulses are intact. Knee ROM: Extension- 0??? Flexion- 80??? Strength: Knee Flexion 4+/5 Knee Extension 4+/5 Ankle Dorsiflexion 5/5 Ankle Plantarflexion 5/5 Sensation: intact over superficial peroneal, deep peroneal and tibial nerve distributions Shows paresthesia around the incision site with severe pain globally. No evidence of any major effusion noted in the right knee joint. Trophic changes noted with pitting edema to the patient. Patient has severe pain and is unable to stand or walk on the right lower extremity. Stability: Stable to varus and valgus stress Stable to anterior and posterior thrust Gait: heel toe pattern, normal Imaging X-rays right knee 04/19/2024 obtained today in clinic: Right knee joint 3 views that were taken today which show demonstrates right total knee arthroplasty with medial sided failure and significant varus angulation of tibial component secondary to loosening and sinking with noted. There is abnormal angulation and alignment noted with lucency around the tibial component suggestive of loosening of the knee arthroplasty. These were shown and explained to the patient. X-rays of the left knee joint were not available to be seen. Patient will need standing x-rays after he comes back for further evaluation of his mechanical axis due to his class III obesity we will need this so as to plan his right revision knee arthroplasty in future. X-rays of his cervical spine that were done were also reviewed which show the patient has had MRI scans to support his diagnosis of moderate cervical spondylosis with variable neural foramen narrowing but no significant cord compression or abnormal cord signal. Suggestion of thickening of the posterior longitudinal ligament at C1-C3 level versus small epidural fluid collection but without significant canal stenosis or cord compression at this level. Imaging personally reviewed and interpreted by attending physician. Findings discussed with patient. Assessment/Plan Loosening of the right knee arthroplasty with unstable prosthetic knee components initial visit S/p bilateral (more content not included)... [facility] 03-11-2024 History of Present illness Narrative Images from the original note were not included. [id number] [facility] [id number] SUBJECTIVE: Patient ID: Royce Delaney is a 74 y.o. male. 74 yo WM with chronic right knee pain and ,s/p right knee replacement 5 years ago and right foot pain x 6 weeks , seeing lymphedema clinic for swelling, no injury Pt also c/o pain in left SI area x 6 months The following portions of the patient's history were reviewed and updated as appropriate: allergies, current medications, past family history, past medical history, past social history, past surgical history and problem list. REVIEW OF SYSTEMS: Review of Systems Musculoskeletal: Positive for arthralgias. PHYSICAL EXAMINATION: Vitals: 03/11/24 0917 BP: 140/80 BP Site: Left Arm BP Postition: Sitting BP CUFF SIZE: L (13-17 inches) Pulse: 88 Resp: 16 Weight: (!) 161.9 kg (357 lb) Height: 182.9 cm (6') Physical Exam ASSESSMENT/PLAN: Royce was seen today for knee pain and foot pain. Diagnoses and all orders for this visit: Chronic pain of right knee - X-ray knee right 3 views; Future Pain of right lower extremity - X-ray knee right 3 views; Future - X-ray foot right minimum 3 views; Future Lymphedema of both lower extremities Arthritis of left sacroiliac joint - X-ray pelvis 1 or 2 views; Future Follow-up: Xray knee right and foot right and pelvis Ortho referral documented in this encounter [facility] 02-19-2024 Miscellaneous Notes Patient requesting refill of Atorvastatin, Omeprazole and Pramipexole to [facility] documented in this encounter [facility] 02-19-2024 Telephone encounter Note Patient requesting refill of Atorvastatin, Omeprazole and Pramipexole to [facility] 01-26-2024 History of Present illness Narrative Images from the original note were not included. [id number] [facility] [id number] SUBJECTIVE: Patient ID: Royce Delaney is a 73 y.o. male. 73 yo WM with with leg swelling and as using lasix only as needed, has had difficulty since knee replacement, pt has a bipap fo STEFF, is concerned about his heart The following portions of the patient's history were reviewed and updated as appropriate: allergies, current medications, past family history, past medical history, past social history, past surgical history and problem list. REVIEW OF SYSTEMS: Review of Systems Respiratory: Positive for shortness of breath. Cardiovascular: Positive for leg swelling. PHYSICAL EXAMINATION: Vitals: 01/26/24 1400 BP: 120/76 BP Site: Left Arm BP Postition: Sitting BP CUFF SIZE: L (13-17 inches) Pulse: 88 Resp: 16 Weight: (!) 163.3 kg (360 lb) Height: 182.9 cm (6') Physical Exam Vitals and nursing note reviewed. Constitutional: Appearance: Normal appearance. HENT: Head: Normocephalic and atraumatic. Eyes: Extraocular Movements: Extraocular movements intact. Pupils: Pupils are equal, round, and reactive to light. Cardiovascular: Rate and Rhythm: Normal rate and regular rhythm. Pulses: Normal pulses. Heart sounds: Normal heart sounds. Pulmonary: Effort: Pulmonary effort is normal. Breath sounds: Normal breath sounds. Musculoskeletal: Right lower leg: Edema present. Left lower leg: Edema present. Skin: General: Skin is warm and dry. Neurological: General: No focal deficit present. Mental Status: He is alert and oriented to person, place, and time. Psychiatric: Mood and Affect: Mood normal. Behavior: Behavior normal. ASSESSMENT/PLAN: Royce was seen today for leg swelling. Diagnoses and all orders for this visit: Lymphedema of both lower extremities - Vas venous duplex lwr bilateral; Future Localized edema - Vas venous duplex lwr bilateral; Future Dyspnea on exertion - Echo complete W/O contrast; Future Follow-up: Venous doppler Echocardiogram Avoid salt and elevation and pt has no support hose Lasix 40mg 1 qd [facility] Miscellaneous Notes [facility] Telephone encounter Note [facility] to [facility] Evaluation note Diagnosis Onychomycosis- Primary Dermatophytosis of nail Onychodystrophy Other specified disease of nail Pain around toenail, right foot Pain around toenail, left foot documented in this encounter [facility]* Diagnosis Lymphangitis- Primary Lymphedema of both lower extremities Lymphedema of both lower extremities- Primary Essential hypertension- Primary Unspecified essential hypertension Pure hypercholesterolemia [facility]* Diagnosis Plantar wart, left foot- Primary Plantar wart Acquired keratoderma Left foot pain Pain in soft tissues of limb Difficulty walking Difficulty in walking documented in this encounter [facility]* Diagnosis Chronic pain of right knee- Primary Pain of right lower extremity Lymphedema of both lower extremities Arthritis of left sacroiliac joint [facility]* Diagnosis Lymphedema of both lower extremities [facility]* Diagnosis Lymphedema of both lower extremities- Primary Localized edema Edema Dyspnea on exertion Other dyspnea and respiratory abnormality documented in this encounter [facility]* Diagnosis Essential hypertension- Primary Unspecified essential hypertension Pure hypercholesterolemia Lymphedema of both lower extremities Cellulitis of right lower extremity S/P total knee arthroplasty, right documented in this encounter [facility]* Diagnosis Lymphedema of both lower extremities- Primary Essential hypertension Unspecified essential hypertension Pure hypercholesterolemia Cellulitis of right lower extremity documented in this encounter [facility] note* Diagnosis Lymphedema of both lower extremities- Primary Essential hypertension Unspecified essential hypertension Cellulitis of right lower extremity documented in this encounter [facility] note* Diagnosis Lymphangitis- Primary Lymphedema of both lower extremities documented in this encounter [facility]* Diagnosis Blister of right lower extremity without infection, initial encounter- Primary Cellulitis of right lower extremity Lymphedema of both lower extremities documented in this encounter [facility]* Diagnosis Cellulitis of right lower extremity- Primary [facility]* Diagnosis Cellulitis of right lower extremity- Primary Lymphedema of both lower extremities [facility]* Diagnosis Cellulitis of right lower leg- Primary Chronic bronchitis, unspecified chronic bronchitis type ([facility]) Essential hypertension Unspecified essential hypertension Pure hypercholesterolemia Asthenia Other malaise and fatigue documented in this encounter [facility]* Diagnosis Lymphangitis- Primary Lymphedema of both lower extremities Cellulitis of right lower leg- Primary Lymphedema of both lower extremities [facility]* Diagnosis Lymphangitis- Primary Lymphedema of both lower extremities Lymphedema of both lower extremities- Primary [facility]* Diagnosis Lymphangitis- Primary Lymphedema of both lower extremities Lymphedema of both lower extremities- Primary Routine general medical examination at a health care facility- Primary Essential hypertension Unspecified essential hypertension Pure hypercholesterolemia Lymphedema of both lower extremities BMI 45.0-49.9, adult ([facility]) documented in this encounter [facility]* Diagnosis Lymphangitis- Primary Lymphedema of both lower extremities Lymphedema of both lower extremities- Primary Lymphedema of both lower extremities- Primary Cellulitis of right lower leg Arthritis of left sacroiliac joint Chronic bronchitis, unspecified chronic bronchitis type ([facility]) BMI 45.0-49.9, adult ([facility]) Pure hypercholesterolemia Essential hypertension Unspecified essential hypertension documented in this encounter [facility]* Diagnosis Lymphangitis- Primary Lymphedema of both lower extremities Lymphedema of both lower extremities- Primary Lymphedema of both lower extremities- Primary Cellulitis of right lower leg documented in this encounter [facility]* Diagnosis Lymphangitis- Primary Lymphedema of both lower extremities Lymphedema of both lower extremities- Primary Lymphedema of both lower extremities- Primary Cellulitis of right lower leg documented in this encounter [facility]* Diagnosis Lymphangitis- Primary Lymphedema of both lower extremities Lymphedema of both lower extremities- Primary STEFF (obstructive sleep apnea)- Primary Obstructive sleep apnea (adult) (pediatric) Iron deficiency anemia, unspecified iron deficiency anemia type RLS (restless legs syndrome) Restless legs syndrome (RLS) Class 3 severe obesity due to excess calories with serious comorbidity and body mass index (BMI) of 45.0 to 49.9 in adult [facility]* Diagnosis Lymphangitis- Primary Lymphedema of both lower extremities Lymphedema of both lower extremities- Primary Lymphedema of both lower extremities- Primary Cellulitis of right lower leg [facility] Diagnosis Lymphangitis- Primary Lymphedema of both lower extremities Lymphedema of both lower extremities- Primary Nonrheumatic aortic valve stenosis- Primary [facility]* Diagnosis Bursitis of left foot- Primary Acquired keratoderma Left foot pain Pain in soft tissues of limb Difficulty walking Difficulty in walking documented in this encounter [facility]* Diagnosis Lymphangitis- Primary Lymphedema of both lower extremities Lymphedema of both lower extremities- Primary Other iron deficiency anemia- Primary [facility]* Diagnosis Lymphangitis- Primary Lymphedema of both lower extremities Lymphedema of both lower extremities- Primary Other iron deficiency anemia [facility]* Diagnosis Onychomycosis- Primary Dermatophytosis of nail Onychodystrophy Other specified disease of nail Pain around toenail, right foot Pain around toenail, left foot documented in this encounter [facility]* Diagnosis Lymphangitis- Primary Lymphedema of both lower extremities Lymphedema of both lower extremities- Primary Lymphedema of both lower extremities- Primary Cellulitis of right lower leg Cellulitis of left lower leg [facility]* Diagnosis Lymphangitis- Primary Lymphedema of both lower extremities Lymphedema of both lower extremities- Primary Cellulitis of right lower leg- Primary Cellulitis of left lower leg Lymphedema of both lower extremities [facility]* Diagnosis Lymphangitis- Primary Lymphedema of both lower extremities Lymphedema of both lower extremities- Primary Insomnia due to medical condition- Primary Organic insomnia, unspecified documented in this encounter [facility] SystemInstructionsNot on filedocumented in this encounter [facility]* Attachments The following attachments cannot be sent through Care Everywhere. * Chronic Knee Pain (Dominican) [facility] SystemInstructionsNot on file documented in this [facility] SystemInstructionsNot on file documented in this [facility] SystemInstructionsNot on file documented in this [facility] SystemInstructionsNot on file documented in this [facility] SystemInstructionsNot on file documented in this encounterPro[facility] SystemInstructions* Attachments The following attachments cannot be sent through Care Everywhere. * Lymphedema (Dominican) documented in this [facility] SystemInstructionsNot on file documented in this [facility] SystemInstructionsNot on file documented in this encounterPro[facility] SystemInstructionsNot on file documented in this encounterPro[facility] SystemInstructionsNot on file documented in this [facility] SystemInstructionsNot on file documented in this encounterPro[facility] SystemInstructionsNot on file documented in this encounterPro[facility] SystemInstructionsNot on file documented in this [facility] SystemInstructions* Attachments The following attachments cannot be sent through Care Everywhere. * Cellulitis (Skin Infection) Discharge Instructions, Adult (Dominican) [facility]* Attachments The following attachments cannot be sent through Care Everywhere. * Weakness ED (Dominican) * Generalized Weakness (Dominican) [facility] SystemInstructionsNot on file documented in this encounterOhio[facility] SystemInstructionsNot on file documented in this [facility] SystemInstructions* Attachments The following attachments cannot be sent through Care Everywhere. * Cellulitis (Skin Infection) Discharge Instructions, Adult (Dominican) documented in this [facility] SystemInstructions* Attachments The following attachments cannot be sent through Care Everywhere. * Cellulitis (Skin Infection) Discharge Instructions, Adult (Dominican) documented in this [facility] SystemInstructions* Attachments The following attachments cannot be sent through Care Everywhere. * Cellulitis (Skin Infection) Discharge Instructions, Adult (Dominican) documented in [facility] encounter[facility] SystemInstructionsNot on file documented in this encounter[facility] SystemInstructionsNot on file documented in this encounterOhio[facility] SystemInstructionsNot on file documented in this [facility] SystemInstructions* Attachments The following attachments cannot be sent through Care Everywhere. * Cellulitis (skin infection) in adults Discharge instructions (Dominican) documented in this [facility] SystemInstructionsNot on file documented in this [facility] SystemReason for referral (narrative)* Consultation (Routine) - Pending Review Specialty Diagnoses / Procedures Referred By Contact Referred To Contact Orthopedic Surgery / MED-SURG/ORTHOPEDICS Diagnoses Chronic pain of right knee Pain of right lower extremity Arthritis of left sacroiliac joint Megan Blank MD [address] [place] [address] Lesley Booth Jr., [address] [address] Referral ID Status Reason Start Date Expiration Date Visits Requested Visits Authorized [id number] Pending Review Specialty Services Required 03/11/2024 03/11/2025 1 1 [facility] for referral (narrative)* Consultation (Routine) - Authorized Specialty Diagnoses / Procedures Referred By Cici fournier Referred To Contact Diagnoses Lymphedema of both lower extremities Megan Blank MD [address] [place] [address] [address] Referral ID Status Reason Start Date Expiration Date V isits Requested Visits Authorized [id number] Authorized 01/26/2024 01/25/2025 1 1 Scheduling Instructions [phone], [phone] * Cardiology (Routine) - Authorized Specialty Diagnoses / Procedures Referred By Cici fournier Referred To Contact Diagnoses Dyspnea on exertion Procedures Echo complete W/O contrast Megan Blank MD [address] [place] [address] [facility] [address] [place] [address] Phone: [phone] Referral ID Status Reason Start Date Expiration Date V isits Requested Visits Authorized [id number] Authorized 01/26/2024 04/24/2024 1 1 * Vascular (Routine) - Pending Review Specialty Diagnoses / Procedures Referred By Cici fournier Referred To Contact Diagnoses Lymphedema of both lower extremities Localized edema Procedures Vas venous duplex lwr bilateral Megan Blank MD [address] [place] [address] [facility] [address] [place] [address] Phone: [phone] Referral ID Status Reason Start Date Expiration Date V isits Requested Visits Authorized [id number] Pending Review 01/26/2024 01/25/2025 1 1 [facility] for referral (narrative)* Consultation (Routine) - Authorized Specialty Diagnoses / Procedures Referred By Contac t Referred To Contact Rehabilitation Diagnoses S/P total knee arthroplasty, right Megan Blank MD [address] [place] [address] [facility] [address] [place] [address] Referral ID Status Reason Start Date Expiration Date Visits Requested Visits Authorized [id number] Authorized Specialty Services Required 06/04/2024 12/05/2024 12 12 [facility] for referral (narrative)* Consultation (Routine) - Authorized Specialty Diagnoses / Procedures Referred By Cici t Referred To Contact Vascular Surgery Diagnoses Lymphedema of both lower extremities Megan Blank MD [address] [place] [address] Cesar Valle MD [address] [place] [address] Referral ID Status Reason Start Date Expiration Date Visits Requested Visits Authorized [id number] Authorized Specialty Services Required 06/15/2024 06/15/2025 1 1 * Consultation (Routine) - Authorized Specialty Diagnoses / Procedures Referred By Contac t Referred To Contact Diagnoses Lymphedema of both lower extremities Megan Blank MD [address] [address] [address] Referral ID Status Reason Start Date Expiration Date V isits Requested Visits Authorized [id number] Authorized 06/15/2024 06/15/2025 1 1 [facility] for referral (narrative)* Consultation (Routine) - Pending Review Specialty Diagnoses / Procedures Referred By Contac t Referred To Contact Wound Care Diagnoses Lymphedema of both lower extremities Cellulitis of right lower extremity Megan Blank MD [address] [place] [address] [facility] [address] [place] [address] Referral ID Status Reason Start Date Expiration Date Visits Requested Visits Authorized [id number] Pending Review Specialty Services Required 06/25/2024 06/25/2025 1 1 [facility] for referral (narrative)* Consultation (Routine) - Pending Review Specialty Diagnoses / Procedures Referred By Contac t Referred To Contact Wound Care Diagnoses Lymphedema of both lower extremities Cesar Claire MD [address], [address] [address] [facility] [address] [place] [address] Referral ID Status Reason Start Date Expiration Date Visits Requested Visits Authorized [id number] Pending Review Specialty Services Required 06/24/2024 06/24/2025 1 1 * Consultation (Routine) - Pending Review Specialty Diagnoses / Procedures Referred By Contac t Referred To Contact Diagnoses Lymphedema of both lower extremities Cesar Claire MD [address], [address] [place] [address] Referral ID Status Reason Start Date Expiration Date V isits Requested Visits Authorized [id number] Pending Review 06/24/2024 06/24/2025 1 1 [facility] Consultation (Routine) - Authorized Specialty Diagnoses / Procedures Referred By Cici fournier Referred To Contact Neurology Diagnoses Megan Atkins MD [address] [place] [address] Maury Garcia MD [address] [facility] [address] [place] [address] Referral ID Status Reason Start Date Expiration Date Visits Requested Visits Authorized [id number] Authorized Specialty Services Required 08/09/2024 08/09/2025 1 1 [facility] History of Present Illness * Yessica Oh - 12/24/2019 2:15 PM EST [facility] Inpatient/Observation/Outpatient Rehabilitation Date: 12/24/2019 Patient Name: Royce Delaney [] Inpatient Acute/Observation [x] Outpatient : 1950 [] Pt no showed for scheduled appointment [] Pt refused/declined therapy at this time due to: [x] Pt cancelled due to: [] No Reason Given [] Sick/ill [x] Other: Patient called to cancel today'sappointment due to the weather conditions and living out of town. Confirmed next appointment with patient. Yessica Oh Date: 12/24/2019 documented in this encounter* Nelda Saucedo, PT - 12/28/2019 1:45 PM EST [facility] Outpatient Physical Therapy Daily Note Patient: Royce Delaney : 1950 [facility] #: [id number] Referring Practitioner: Dr. John Christie Referral Date : 12/09/19 Date: 12/28/2019 Diagnosis: R LE lymphedema I89.0 Treatment Diagnosis: BLE edema Onset Date: 12/09/19 PT Insurance Information: Medicare/MMO Total # of Visits Approved: 18 Per Physician Order Total # of Visits to Date: 4 Pre-Treatment Pain: 0/10 Subjective: pt reported that he felt like his legs were getting better Exercises: Exercise 1: HEP: pt educated on keeping legs compressed, elevated and performing exercises daily Manual: Soft Tissue Mobalization: MLD to BLE Assessment Assessment: Pt performed MLD to BLE, pt stated he didn't want wrapped today Patient Education Patient Education: metting with pump rep next visit Pt verbalized/demonstrated good understanding: [x] Yes [] No, pt required further clarification. Post Treatment Pain: 0/10 Plan Times per week: 2x/wk Plan weeks: 4-6 weeks Goals (Total # of Visits to Date: 4) Short Term Goals - Time Frame for Short term goals: 3 weeks Short term goal 1: Pt will be educaated onhis POC and HEP-met []Met []Partially met []Not met Short term goal 2: Pt will initiate MLD and compression therapy []Met []Partially met []Not met []Met []Partially met []Not met []Met []Partially met []Not met Cardiopulmonary Specialist Goals - Time Frame for MCFP goals : 6 weeks buttermaker continuous churn goal 1: Pt will be safe and independent with his POC []Met []Partially met []Not met buttermaker continuous churn goal 2: Pt will demonstrate and decreaed in BLE girth measurements by 2-3cm in order to increae ambulation tolerance []Met []Partially met []Not met MCFP goal 3: Pt will report 70% improvement in symptoms []Met []Partially met []Not met []Met []Partially met []Not met []Met []Partially met []Not met Minutes Tracking: Time In: 1344 Time Out: 1422 Minutes: 38 Nelda Saucedo PT, DPT Date: 12/28/2019 documented in this encounter* Nelda Saucedo, PT - 01/04/2020 2:00 PM EST [facility] Outpatient Physical Therapy Daily Note Patient: Royce Delaney : 1950 CSN #: [id number] Referring Practitioner: Dr. John Christie Referral Date : 12/09/19 Date: 01/04/2020 Diagnosis: R LE lymphedema I89.0 Treatment Diagnosis: BLE edema Onset Date: 12/09/19 PT Insurance Information: Medicare/[employer] Total # of Visits Approved: 18 Per Physician Order Total # of Visits to Date: 6 Pre-Treatment Pain: 0/10 Subjective: Pt is wearing compression throughout the day and states his legs look a little better Exercises: Exercise 1: HEP: pt educated on keeping legs compressed, elevated and performing exercises daily Manual: Soft Tissue Mobalization: MLD to BLE Assessment Assessment: Pt will start compression pumps next visit Patient Education Patient Education: educated on compression pumps Pt verbalized/demonstrated good understanding: [x] Yes [] No, pt required further clarification. Post Treatment Pain: 0/10 Plan Times per week: 2x/wk Plan weeks: 4-6 weeks Goals (Total # of Visits to Date: 6) Short Term Goals - Time Frame for Short term goals: 3 weeks Short term goal 1: Pt will be educaated onhis POC and HEP-met []Met []Partially met []Not met Short term goal 2: Pt will initiate MLD and compression therapy []Met []Partially met []Not met []Met []Partially met []Not met []Met []Partially met []Not met Cardiopulmonary Specialist Goals - Time Frame for MCFP goals : 6 weeks [facility]FP goal 1: Pt will be safe and independent with his POC []Met []Partially met []Not met buttermaker continuous churn goal 2: Pt will demonstrate and decreaed in BLE girth measurements by 2-3cm in order to increae ambulation tolerance []Met []Partially met []Not met [facility]FP goal 3: Pt will report 70% improvement in symptoms []Met []Partially met []Not met []Met []Partially met []Not met []Met []Partially met []Not met Minutes Tracking: Time In: 1356 Time Out: 1436 Minutes: 40 Nelda Saucedo PT, DPT Date: 01/04/2020 documented in this encounter* Nelda Saucedo, PT - 01/11/2020 1:15 PM EST [facility] Outpatient Physical Therapy Daily Note Patient: Royce Delaney : 1950 CSN #: [id number] Referring Practitioner: Dr. John Christie Referral Date : 12/09/19 Date: 01/11/2020 Diagnosis: R LE lymphedema I89.0 Treatment Diagnosis: BLE edema Onset Date: 12/09/19 PT Insurance Information: Medicare/Codement[employer] Total # of Visits Approved: 18 Per Physician Order Total # of Visits to Date: 8 Pre-Treatment Pain: 0/10 Subjective: Pt stated he is pleased his swelling is going down Exercises: Exercise 1: HEP: pt educated on keeping legs compressed, elevated and performing exercises daily Manual: Soft Tissue Mobalization: MLD to BLE Assessment Assessment: MLD to BLE, new compression given. pt tolerated pumps for 45 minutes at 30mmHG Patient Education Patient Education: increasing length of pumps Pt verbalized/demonstrated good understanding: [x] Yes [] No, pt required further clarification. Post Treatment Pain: 0/10 Plan Times per week: 2x/wk Plan weeks: 4-6 weeks Goals (Total # of Visits to Date: 8) Short Term Goals - Time Frame for Short term goals: 3 weeks Short term goal 1: Pt will be educaated onhis POC and HEP-met []Met []Partially met []Not met Short term goal 2: Pt will initiate MLD and compression therapy-met []Met []Partially met []Not met []Met []Partially met []Not met []Met []Partially met []Not met Prison Goals - Time Frame for buttermaker continuous churn goals : 6 weeks buttermaker continuous churn goal 1: Pt will be safe and independent with his POC []Met []Partially met []Not met buttermaker continuous churn goal 2: Pt will demonstrate and decreaed in BLE girth measurements by 2-3cm in order to increae ambulation tolerance- progressing []Met []Partially met []Not met [facility]FP goal 3: Pt will report 70% improvement in symptoms []Met []Partially met []Not met []Met []Partially met []Not met []Met []Partially met []Not met Minutes Tracking: Time In: 1306 Time Out: 1421 Minutes: 75 Nelda Saucedo PT, DPT Date: 01/11/2020 documented in this encounter* Yessica Oh - 01/18/2020 11:00 AM EST [facility] Inpatient/Observation/Outpatient Rehabilitation Date: 01/18/2020 Patient Name: Royce Linda Ugo [] Inpatient Acute/Observation [x] Outpatient : 1950 [] Pt no showed for scheduled appointment [] Pt refused/declined therapy at this time due to: [] Pt cancelled due to: [] No Reason Given [] Sick/ill [] Other: We had to call and cancel patient's appointment due to the therapist being ill. Confirmed next appointment with patient. Yessica Oh Date: 01/18/2020 documented in this encounter* Jennifer Bonds - 01/24/2020 9:30 AM EDT [facility] Inpatient/Observation/Outpatient Rehabilitation Date: 01/24/2020 Patient Name: Royce Linda Ugo [] Inpatient Acute/Observation [] Outpatient : 1950 [] Pt no showed for scheduled appointment [] Pt refused/declined therapy at this time due to: [x] Pt cancelled due to: [] No Reason Given [] Sick/ill [] Other: He said he had another appointment. Jennifer Bonds Date: 01/24/2020 documented in this encounter* Nelda Saucedo, PT - 01/14/2020 2:15 PM EST [facility] Outpatient Physical Therapy Daily Note Patient: Royce Delaney : 1950 [facility] #: [id number] Referring Practitioner: Dr. John Christie Referral Date : 12/09/19 Date: 01/14/2020 Diagnosis: R LE lymphedema I89.0 Treatment Diagnosis: BLE edema Onset Date: 12/09/19 PT Insurance Information: Medicare/[employer] Total # of Visits Approved: 18 Per Physician Order Total # of Visits to Date: 9 Pre-Treatment Pain: 4/10 Subjective: pt reported his R knee was hurting too bad from the pumps Exercises: Exercise 1: HEP: pt educated on keeping legs compressed, elevated and performing exercises daily Manual: Soft Tissue Mobalization: MLD to BLE Assessment Assessment: MLD performed to BLE, pt did not want pumps performed this date due to pain Patient Education *Patient Education: continue to use compression Pt verbalized/demonstrated good understanding: [x] Yes [] No, pt required further clarification. Post Treatment Pain: 3/10 Plan Times per week: 2x/wk Plan weeks: 4-6 weeks Goals (Total # of Visits to Date: 9) Short Term Goals - Time Frame for Short term goals: 3 weeks Short term goal 1: Pt will be educaated onhis POC and HEP-met []Met []Partially met []Not met Short term goal 2: Pt will initiate MLD and compression therapy-met []Met []Partially met []Not met []Met []Partially met []Not met []Met []Partially met []Not met Prison Goals - Time Frame for [facility]FP goals : 6 weeks buttermaker continuous churn goal 1: Pt will be safe and independent with his POC []Met []Partially met []Not met [facility]FP goal 2: Pt will demonstrate and decreaed in BLE girth measurements by 2-3cm in order to increae ambulation tolerance- progressing []Met []Partially met []Not met buttermaker continuous churn goal 3: Pt will report 70% improvement in symptoms []Met []Partially met []Not met []Met []Partially met []Not met []Met []Partially met []Not met Minutes Tracking: Time In: 1413 Time Out: 1444 Minutes: 31 Nelda Saucedo PT, DPT Date: 01/14/2020 documented in this encounter* Nelda Saucedo, PT - 12/21/2019 2:45 PM EST [facility] Outpatient Physical Therapy Daily Note Patient: Royce Delaney : 1950 CSN #: [id number] Referring Practitioner: Dr. John Christie Referral Date : 12/09/19 Date: 12/21/2019 Diagnosis: R LE lymphedema I89.0 Treatment Diagnosis: BLE edema Onset Date: 12/09/19 PT Insurance Information: Medicare/Codementor Total # of Visits Approved: 18 Per Physician Order Total # of Visits to Date: 3 Pre-Treatment Pain: 0*/10 Subjective: Pt stated he was feeling sore from his surgery and that his legs were very swollen today Exercises: Exercise 1: HEP: pt educated on keeping legs compressed, elevated and performing exercises daily Manual: Soft Tissue Mobalization: MLD to BLE Assessment Assessment: Pt educated on the importance of compression and elevation, MLD performed to BLE with compression applied Patient Education *Patient Education: all treatment options Pt verbalized/demonstrated good understanding: [x] Yes [] No, pt required further clarification. Post Treatment Pain: 0/10 Plan Times per week: 2x/wk Plan weeks: 4-6 weeks Goals (Total # of Visits to Date: 3) Short Term Goals - Time Frame for Short term goals: 3 weeks Short term goal 1: Pt will be educaated onhis POC and HEP-met []Met []Partially met []Not met Short term goal 2: Pt will initiate MLD and compression therapy []Met []Partially met []Not met []Met []Partially met []Not met []Met []Partially met []Not met Prison Goals - Time Frame for [facility]FP goals : 6 weeks buttermaker continuous churn goal 1: Pt will be safe and independent with his POC []Met []Partially met []Not met [facility]FP goal 2: Pt will demonstrate and decreaed in BLE girth measurements by 2-3cm in order to increae ambulation tolerance []Met []Partially met []Not met [facility]FP goal 3: Pt will report 70% improvement in symptoms []Met []Partially met []Not met []Met []Partially met []Not met []Met []Partially met []Not met Minutes Tracking: Time In: 1444 Time Out: 1536 Minutes: 52 Nelda Saucedo PT, DPT Date: 12/21/2019 documented in this encounter Advance Directives No Advanced Directives Records FoundDocuments on File Type Date Recorded Patient Station Helper Expl anation Advance Directives and Living Will Power of Veneer Stacker Date Activated Date Inactivated Comments 07/30/2024 7:52 PM 08/02/2024 3:17 PM Date Activated Date Inactivated Comments 05/25/2024 4:07 PM 05/27/2024 5:42 PM Date Activated Date Inactivated Comments 07/14/2019 6:11 PM 07/15/2019 7:07 PM Date Activated Date Inactivated Comments 07/14/2019 6:11 PM 07/15/2019 7:07 PM Date Activated Date Inactivated Comments 07/14/2019 6:11 PM 07/15/2019 7:07 PM Latest Code Status on File Code Status Date Activated Date Inactivated Comments Full Code 07/14/2019 6:11 PM 07/15/2019 7:07 PM Date Activated Date Inactivated Comments 05/25/2024 4:07 PM 05/27/2024 5:42 PM Date Activated Date Inactivated Comments 07/14/2019 6:11 PM 07/15/2019 7:07 PM Latest Code Status on File Code Status Date Activated Date Inactivated Comments Full Code 07/14/2019 6:11 PM 07/15/2019 7:07 PM Date Activated Date Inactivated Comments 05/25/2024 4:07 PM 05/27/2024 5:42 PM Date Activated Date Inactivated Comments 07/14/2019 6:11 PM 07/15/2019 7:07 PM Date Activated Date Inactivated Comments 07/30/2024 7:52 PM 08/02/2024 3:17 PM Date Activated Date Inactivated Comments 05/25/2024 4:07 PM 05/27/2024 5:42 PM Date Activated Date Inactivated Comments 07/14/2019 6:11 PM 07/15/2019 7:07 PM Summary Purpose Family History No Family History Records FoundNo Family History Records FoundNo Family History Records FoundNo Family History Records FoundNo Family History Records FoundNo Family History Records Found Reason for Referral Specialty Diagnoses / Procedures Referred By Cici fournier Referred To Contact Diagnoses Cellulitis of right lower extremity Procedures Opticell Alginate AG Jo Stone, RESORT KEEPER-IMAGING NURSE [address] [place] [address] Referral ID Status Reason Start Date Expiration Date V isits Requested Visits Authorized [id number] Pending Review 07/02/2024 07/02/2025 1 1 Additional Source Comments (unrecognized sect ion and content) No Status Records FoundNo Status Records FoundNo Status Records FoundNo Status Records FoundNo Status Records FoundNo Status Records Found INFORMATION SOURCE (unrecogn ized section and content) DATE CREATED AUTHOR 04/28/2020 Kalpana Ervin [facility] DATE CREATED AUTHOR AUTHOR'S ORGANIZ ATION 06/07/2024 [facility] DATE CREATED AUTHOR AUTHOR'S ORGANIZ ATION 07/18/2024 [facility] DATE CREATED AUTHOR AUTHOR'S ORGANIZ ATION 04/29/2025 [facility] DATE CREATED AUTHOR AUTHOR'S ORGANIZ ATION 07/26/2025 [facility] DATE CREATED AUTHOR AUTHOR'S ORGANIZ ATION 08/10/2025 [facility] d[facility] Special[facility] Reason for Visit (unrecogniz ed section and content) Reason Comments Toenail Care Established pt prese nts today for nail and callus care. Pt relates being in hospital 3 times since April. SS: 14 Reason Comments Nail care Royce Delaney is a 74 y.o. male who presents for Toenail Care. Patient relates Left heel pain, states it feels like a plantars wart. SS: 14 Reason Comments Foot Pain Royce Delaney is a 74 y.o. male. Patient relates callus on Left heel was not resolved at the last visit. Patient states pain with weightbearing. Last visit 11/24/2023. Reason Comments Knee Pain right Foot Pain Right Reason Comments Follow-up Established pt prese nts today for 2-3 week fuv of painful lesion, left heel. Reason Onset Date Comments Med Refill 01/16/2024 Reason Onset Date Comments Transition Of Care 05/28/2024 Reason Comments Leg Swelling Reason Comments BARAK Reason Onset Date Comments Care Navigation 06/10/2024 Reason Comments Follow-up ER Reason Comments Follow-up Reason Comments Lymphedema of both lower extremities Lym phedema bilateral calf and feet swollen no redness, open narea with serous drainage to right posterior lower leg Specialty Diagnoses / Procedures Referred By Cici fournier Referred To Contact Vascular Surgery Diagnoses Lymphedema of both lower extremities Megan Blank MD [address] [place] [address] Cesar Valle MD [address] [place] [address] Referral ID Status Reason Start Date Expiration Date V isits Requested Visits Authorized [id number] Closed Specialty Services Required 06/15/2024 06/15/2025 1 1 Reason Comments Wound Check Specialty Diagnoses / Procedures Referred By Cici fournier Referred To Contact Wound Care Diagnoses Lymphedema of both lower extremities Cellulitis of right lower extremity Megan Blank MD [address] [place] [address] [facility] [address] [place] [address] Referral ID Status Reason Start Date Expiration Date Visits Requested Visits Authorized [id number] Pending Review Specialty Services Required 06/25/2024 06/25/2025 1 1 Reason Onset Date Comments Care Navigation 06/29/2024 Reason Onset Date Comments Med Refill 02/19/2024 Reason Comments Dressing Change Reason Comments Follow-up ER Reason Comments Neck Stiffness Reason Comments Cellulitis Right leg Reason Comments Follow-up Edema No new testing Reason Onset Date Comments Med Refill 10/08/2024 Reason Comments Annual Exam Medicare Wellness Reason Comments Follow-up Pt is returns today for a 1mo FUV wart Lt foot. It is still present. He has a nail care appt in February SS: 15W Reason Comments Cellulitis Reason Comments Toenail Care Pt is here today for toenail care, he is unable to reach his feet to trim the nails. He is also dealing with cellulitis RLE but is being treated for that elsewhereSS: 15 Reason Comments Follow-up Reason Comments Sleep Apnea DME: [facility] Restless Leg Reason Comments Callouses Royce Delaney is a 75 y.o. male. Pt is here today for callous care, he is unable to reach his feet to trim the nails. He is also dealing with cellulitis RLE but is being treated for that elsewhere/SS: 15 Reason Onset Date Comments Med Refill 04/28/2025 Reason Comments Med Refill Reason Comments Plantar Warts Established patient presents today for wart fuv of the left heel. Patient states it's very bothersome. SS: 15 Reason Comments Nail care Royce Delaney is a 75 y.o. male who presents for Nail care. Plantar wart left heel pain at this time. Patient relates he saw PCP today for cellulitis BL legs. He has been referred to return to Lymphedema clinic, starting back on his water pill and doxycycline. SS: 15 Reason Comments Cellulitis Reason Comments Follow-up Insomnia Care Teams (unrecognized sec tion and content) P[employer]ed Spring Machine Operator Relationship Specialty Start Date End Date Megan Blank MD [address] [place] [address] PCP - General Family Medicine 05/09/23 Pocketed Spring Machine Operator Relationship Specialty Start Date End Date Megan Blank MD [address] [place] [address] PCP - General Family Medicine 05/25/24 PETROS PierreN, RN [facility] Nurse - [facility] 04/07/24 [employer] Machine Operator Relationship Specialty Start Date End Date Megan Blank MD [address] [place] [address] PCP - General Family Medicine 05/09/23 Pocketed Spring Machine Operator Relationship Specialty Start Date End Date Megan Blank MD [address] [place] [address] PCP - General Family Medicine 05/09/23 Pocketed Spring Machine Operator Relationship Specialty Start Date End Date Megan Blank MD [address] [place] [address] PCP - General Family Medicine 05/09/23 P[employer]ed Spring Machine Operator Relationship Specialty Start Date End Date Megan Blank MD [address] [place] [address] PCP - General Family Medicine 05/14/23 [employer] Machine Operator Relationship Specialty Start Date End Date Megan Blank MD [address] [place] [address] PCP - General Family Medicine 05/25/24 ALEJANDRA Pierre, RN [facility] Nurse - [employer] 04/07/24 P[employer]ed Spring Machine Operator Relationship Specialty Start Date End Date Megan Blank MD [address] [place] [address] PCP - General Family Medicine 05/25/24 ALEJANDRA Pierre, RN [facility] Nurse - [facility] 04/07/24 P[employer]ed [employer] Machine Operator Relationship Specialty Start Date End Date Megan Blank MD [address] [place] [address] PCP - General Family Medicine 05/14/23 Eric Pineda RN [facility] Nurse - [facility] 04/07/24 P[employer]ed [employer] Machine Operator Relationship Specialty Start Date End Date Megan Blank MD [address] [place] [address] PCP - General Family Medicine 05/14/23 Eric Pineda RN [facility] Nurse - [facility] 04/07/24 P[employer]ed Spring Machine Operator Relationship Specialty Start Date End Date Megan Blank MD [address] [place] [address] PCP - General Family Medicine 05/14/23 Pocketed Spring Machine Operator Relationship Specialty Start Date End Date Megan Blank MD [address] [place] [address] PCP - General Family Medicine 05/25/24 Eric Pineda RN [facility] Nurse - [facility] 04/07/24 P[employer]ed Spring Machine Operator Relationship Specialty Start Date End Date Megan Blank MD [address] [place] [address] PCP - General Family Medicine 05/25/24 Eric Pineda RN [facility] Nurse - [facility] 04/07/24 P[employer]ed [employer] Machine Operator Relationship Specialty Start Date End Date Megan Blank MD [address] [place] [address] PCP - General Family Medicine 05/25/24 Eric Pineda RN [facility] Nurse - [facility] 04/07/24 P[employer]ed [employer] Machine Operator Relationship Specialty Start Date End Date Megan Blank MD [address] [place] [address] PCP - General Family Medicine 05/25/24 Eric Pineda RN [facility] Nurse - [employer] 04/07/24 P[employer]ed [employer] Machine Operator Relationship Specialty Start Date End Date Megan Blank MD [address] [place] [address] PCP - General Family Medicine 05/25/24 Eric Pineda RN [facility] Nurse - [facility] 04/07/24 P[employer] Machine Operator Relationship Specialty Start Date End Date Megan Blank MD [address] [place] [address] PCP - General Family Medicine 05/25/24 Eric Pineda RN [facility] Nurse - [facility] 04/07/24 P[employer] Machine Operator Relationship Specialty Start Date End Date Megan Blank MD [address] [place] [address] PCP - General Family Medicine 05/25/24 Eric Pineda RN [facility] Nurse - [facility] 04/07/24 Pocketed Spring Machine Operator Relationship Specialty Start Date End Date Megan Blank MD [address] [place] [address] PCP - General Family Medicine 05/25/24 Eric Pineda RN [facility] Nurse - [facility] 04/07/24 Pocketed Spring Machine Operator Relationship Specialty Start Date End Date Megan Blank MD [address] [place] [address] PCP - General Family Medicine 05/14/23 P[employer]ed Spring Machine Operator Relationship Specialty Start Date End Date Megan Blank MD [address] [place] [address] PCP - General Family Medicine 05/25/24 Eric Pineda RN [facility] Nurse - [facility] 04/07/24 P[employer]ed Spring Machine Operator Relationship Specialty Start Date End Date Megan Blank MD [address] [place] [address] PCP - General Family Medicine 05/25/24 Eric Pineda RN [facility] Nurse - [employer] 04/07/24 Pocketed Spring Machine Operator Relationship Specialty Start Date End Date Megan Blank MD [address] [place] [address] PCP - General Family Medicine 05/25/24 Eric Pineda RN [facility] Nurse - [employer] 04/07/24 P[employer]ed Spring Machine Operator Relationship Specialty Start Date End Date Megan Blank MD [address] [place] [address] PCP - General Family Medicine 05/25/24 Eric Pineda RN [facility] Nurse - [facility] 04/07/24 Pocketed Spring Machine Operator Relationship Specialty Start Date End Date Megan Blank MD [address] [place] [address] PCP - General Family Medicine 05/25/24 Eric Pineda RN [facility] Nurse - [employer] 04/07/24 P[employer]ed [employer] Machine Operator Relationship Specialty Start Date End Date Megan Blank MD [address] [place] [address] PCP - General Family Medicine 05/25/24 Eric Pineda RN [facility] Nurse - [facility] 04/07/24 Pocketed Spring Machine Operator Relationship Specialty Start Date End Date Megan Blank MD [address] [place] [address] PCP - General Family Medicine 05/25/24 Eric Pineda RN [facility] Nurse - [facility] 04/07/24 Pocketed Spring Machine Operator Relationship Specialty Start Date End Date Megan Blank MD [address] [place] [address] PCP - General Family Medicine 05/25/24 Eric Pineda RN [facility] Nurse - [employer] 04/07/24 Pocketed Spring Machine Operator Relationship Specialty Start Date End Date Megan Blank MD [address] [place] [address] PCP - General Family Medicine 05/25/24 ALEJANDRA Pierre, RN [facility] Nurse - [facility] 04/07/24 P[employer]ed Spring Machine Operator Relationship Specialty Start Date End Date Megan Blank MD PCP - General Family Medicine 05/09/23 Pocketed Spring Machine Operator Relationship Specialty Start Date End Date Megan Blank MD PCP - General Family Medicine 05/09/23 Pocketed Spring Machine Operator Relationship Specialty Start Date End Date Megan Blank MD [address] [place] [address] PCP - General Family Medicine 05/25/24 ALEJANDRA Pierre, RN CCM Nurse - [facility] 04/07/24 Pocketed Spring Machine Operator Relationship Specialty Start Date End Date Justino Gaspar MD [address] [place] [address] PCP - General Internal Medicine 02/21/25 ALEJANDRA Pierre, RN [facility] Nurse - [facility] 04/07/24 Pocketed Spring Machine Operator Relationship Specialty Start Date End Date Justino Gaspar MD [address] [place] [address] PCP - General Internal Medicine 02/21/25 ALEJNADRA Pierre, RN [facility] Nurse - [employer] 04/07/24 Pocketed Spring Machine Operator Relationship Specialty Start Date End Date Justino Gaspar MD [address] [place] [address] PCP - General Internal Medicine 02/21/25 ALEJANDRA Pierre, RN [facility]CM Nurse - [facility] 04/07/24 P[employer]ed Spring Machine Operator Relationship Specialty Start Date End Date Justino Gaspar MD [address] [place] [address] PCP - General Internal Medicine 02/21/25 ALEJANDRA Pierre, RN CCM Nurse - [facility] 04/07/24 Pocketed Spring Machine Operator Relationship Specialty Start Date End Date Justino Gaspar MD [address] [place] [address] PCP - General Internal Medicine 02/21/25 ALEJANDRA Pierre, RN [facility]CM Nurse - [facility] 04/07/24 P[employer]ed Spring Machine Operator Relationship Specialty Start Date End Date Justino Gaspar MD [address] [place] [address] PCP - General Internal Medicine 02/21/25 ALEJANDRA Pierre, RN CCM Nurse - [facility] 04/07/24 Pocketed Spring Machine Operator Relationship Specialty Start Date End Date Justino Gaspar MD [address] [place] [address] PCP - General Internal Medicine 02/21/25 ALEJANDRA Pierre, RN CCM Nurse - [facility] 04/07/24 P[employer]ed Spring Machine Operator Relationship Specialty Start Date End Date Justino Gaspar MD [address] [place] [address] PCP - General Internal Medicine 02/21/25 ALEJANDRA Pierre, RN CCM Nurse - [facility] 04/07/24 P[employer]ed Spring Machine Operator Relationship Specialty Start Date End Date Justino Gaspar MD [address] [place] [address] PCP - General Internal Medicine 02/21/25 ALEJANDRA Pierre, RN CCM Nurse - [employer] 04/07/24 Pocketed Spring Machine Operator Relationship Specialty Start Date End Date Justino Gaspar MD [address] [place] [address] PCP - General Internal Medicine 02/21/25 ALEJANDRA Pierre, RN CCM Nurse - [employer] 04/07/24 P[employer]ed Spring Machine Operator Relationship Specialty Start Date End Date Justino Gaspar MD [address] [place] [address] PCP - General Family Medicine 07/11/25 P[employer]ed Spring Machine Operator Relationship Specialty Start Date End Date Justino Gaspar MD [address] [place] [address] PCP - General Family Medicine 07/11/25 Pocketed Spring Machine Operator Relationship Specialty Start Date End Date Justino Gaspar MD [address] [place] [address] PCP - General Internal Medicine 02/21/25 ALEJANDRA Pierre, RN [facility] Nurse - [facility] 04/07/24 FOR RECORDS PERTAINING TO PATIENTS WHO ARE OR HAVE BEEN ENROLLED IN A CHEMICAL DEPENDENCY/SUBSTANCEABUSE PROGRAM, SOME INFORMATION MAY BE OMITTED. This clinical summary was aggregated from multiple sources. Caution should be exercised in using it in the provision of clinical care. This summary normalizes information from multiple sources, and as a consequence, information in this document may materially change the coding, format and clinical context of patient data. In addition, data may be omitted in some cases. CLINICAL DECISIONS SHOULD BE BASED ON THE PRIMARY CLINICAL RECORDS. [facility]. provides no warranty or guarantee of the accuracy or completeness of information in this document.
[2025-08-12 17:01] VITALS: BP 153/90; PULSE 88; O2SAT 97
[2025-08-12] MEDS: VANCOMYCIN HCL 1,000 MG in 0.9 % SODIUM CHLORIDE 250 ML 250 MG IV (18:08)
--- OUTSIDE RECORDS SUMMARY | 2025-08-12 18:23 | XMS_ITS | CCD ---
Author Organization [facility] Care Team Providers Care [employer] Name Role Phone Megan Blank Primary Care [...] Megan Blank MD Primary Care Provider [phone] GRETEL CHAPPELL Referring Unavailable DEFRANCE, MEGAN Fournier Primary Care Unavailable GRETEL CHAPPELL Referring Unavailable DEFRANCE, MEGAN Fournier Primary Care Unavailable DEFRANCE, MEAGN Fournier Primary Care Unavailable ALTON GRIJALVA Attending Unavailable LEATHA CORNEJO Admitting Unavailable ADRIANA, PRINCESS Attending Unavailable ADRIANA, PRINCESS Referring Unavailable DEFRANCE, MEGAN Fournier Primary Care Unavailable NANNETTE JOHNS Referring Unavailable DEFRANCE, MEGAN Fournier Primary Care Unavailable DEFRANCE, MEGAN Fournier Referring Unavailable DEFRANCE, MEGAN Fournier Primary Care Unavailable DEFRANCE, MEGAN Fournier Primary Care Unavailable ALTON GRIJALVA Attending Unavailable ADRIANA, PRINCESS Attending Unavailable ADRIANA, PRINCESS [...] Unavailable Justino Gaspar MD Primary Care Provider [phone] MEGAN BLANK Attending Unavailable DEFKARTIK, MEGAN Fournier [...] Unavailable RUSHER, JONATHON A Attending Unavailable RUSHER, JONAHTON A Attending Unavailable RUSHER, JONATHON A Attending [...] sleep. 10/21/2024 Discontinued (Alternate therapy) Lactobac comb 7-NZP-atvxhujqrd (PROBIOTIC & ACIDOPHILUS) 300-250 million cell-mg capsule (7 sources) Start: 07-27-2024 End: 10-21-2024 take 1 capsule by mouth in the morning Lactobac comb 1-JBO-zetdjvbdpw (PROBIOTIC & ACIDOPHILUS) 300-250 million cell-mg capsule Take 1 capsule by mouth in the morning and 1 capsule in the evening. Take with meals. 60 capsule 07/27/2024 10/21/2024 Discontinued (Alternate therapy) Start: 07-27-2024 take 1 capsule by mo uth in the morning Lactobac comb 5-NMD-ldtrwfutba (PROBIOTIC & ACIDOPHILUS) 300-250 million cell-mg capsule [...] BY AUTOMATED COUNT 0.0 10*3/uL Normal 0.0-0.2 [facility] Comment on above: Performed By: #### C BCA, 94232-8, CMP, 17485-6, 1988-03, 91463- 0 #### [facility] ([id number]) [address] [place] [address] 97933 #### FEPR #### [facility] ([id number]) [address] [place] [address], [address] [place] [address] BASOPHILS RELATIVE PERCENT BY AUTOMATED COUNT 0.6 % Normal [facility] Comment on above: Performed By: #### C BCA, 13213-7, CMP, 23682-7, 1988-03, 69137- 0 #### [facility] ([id number]) [address] [place] [address] 50147 #### FEPR #### [facility] ([id number]) [address] [place] [address], [address] [place] [address] CELLAVISION DIFFERENTIAL TYPE AUTOMATED DIFFERENTIAL [facility] Comment on above: Performed By: #### C BCA, 76518-8, CMP, 84375-1, 1988-03, 52772- 0 #### [facility] ([id number]) [address] [place] [address] 67881 #### FEPR #### [facility] ([id number]) [address] [place] [address], [address] [place] [address] Eosinophils (Bld) [#/Vol] 0.2 10*3/uL Normal 0.0-0.4 [facility] Comment on above: Performed By: #### C BCA, 88967-5, CMP, 60276-7, 1988-03, 63326- 0 #### [facility] ([id number]) [address] [place] [address] 37307 #### FEPR #### [facility] ([id number]) [address], [address] [place] [address] EOSINOPHILS RELATIVE PERCENT BY AUTOMATED COUNT 3.4 % Normal [facility] Comment on above: Performed By: #### C AMARILYS, 64890-5, CMP, 94308-9, 1988-03, 75553- 0 #### [facility] ([id number]) [address] [place] [address] 63159 #### FEPR #### [facility] ([id number]) [address], [address] [place] [address] Erythrocyte distribution width (RBC) [Ratio] 17.1 % High 11.5-15 [facility] Comment on above: Performed By: #### C AMARILYS, 23108-2, CMP, 96300-1, 1988-03, 40395- 0 #### [facility] ([id number]) [address] [place] [address] 57561 #### FEPR #### [facility] ([id number]) [address], [address] [place] [address] Hematocrit (Bld) [Volume fraction] 38.0 % Low 39-50 [facility] Comment on above: Performed By: #### C BCA, 50568-3, CMP, 40744-4, 1988-03, 31797- 0 #### [facility] ([id number]) [address] [place] [address] 50522 #### FEPR #### [facility] ([id number]) [address], [address] [place] [address] Hemoglobin (Bld) [Mass/Vol] 12.5 g/dL Low 13-17 [facility] Comment on above: Performed By: #### C BCA, 93552-9, CMP, 88954-9, 1988-03, 43974- 0 #### [facility] ([id number]) [address] [place] [address] 41946 #### FEPR #### [facility] ([id number]) [address], [address] [place] [address] LYMPHOCYTES ABSOLUTE COUNT (10*3/UL) BY AUTOMATED COUNT 1.3 10*3/uL Normal 1.0-3.5 [facility] Comment on above: Performed By: #### C BCA, 93997-0, CMP, 56441-8, 1988-03, 18395- 0 #### [facility] ([id number]) [address] [place] [address] 37047 #### FEPR #### [facility] ([id number]) [address], [address] [place] [address] LYMPHOCYTES RELATIVE PERCENT BY AUTOMATED COUNT 19.1 % Normal [facility] Comment on above: Performed By: #### C BCA, 33202-6, CMP, 09871-0, 1988-03, 18556- 0 #### [facility] ([id number]) [address] [place] [address] 99569 #### FEPR #### [facility] ([id number]) [address], [address] [place] [address] MCH (RBC) [Entitic mass] 27.0 pg Normal 27-34 [facility] Comment on above: Performed By: #### C BCA, 45530-6, CMP, 93926-1, 1988-03, 57547- 0 #### [facility] ([id number]) [address] [place] [address] 05293 #### FEPR #### [facility] ([id number]) [address], [address] [place] [address] MCHC (RBC) [Mass/Vol] 32.8 g/dL Normal 32-36 [facility] Comment on above: Performed By: #### C BCA, 16876-4, CMP, 16649-5, 1988-03, 35420- 0 #### [facility] ([id number]) [address] [place] [address] 69839 #### FEPR #### [facility] ([id number]) [address], [address] [place] [address] MCV (RBC) [Entitic vol] 82 fL Normal 80-100 [facility] Comment on above: Performed By: #### C BCA, 01919-3, CMP, 10135-0, 1988-03, 83160- 0 #### [facility] ([id number]) [address] [place] [address] 75292 #### FEPR #### [facility] ([id number]) [address] [facility], [address] [place] [address] MONOCYTES ABSOLUTE COUNT (10*3/UL) BY AUTOMATED COUNT 0.5 10*3/uL Normal 0.0-0.9 [facility] Comment on above: Performed By: #### C BCA, 58314-0, CMP, , 1988-03, 39815- 0 #### [facility] ([id number]) [address] [place] [address] 13727 #### FEPR #### [facility] ([id number]) [address] [facility], [address] [place] [address] MONOCYTES RELATIVE PERCENT BY AUTOMATED COUNT 7.0 % Normal [facility] Comment on above: Performed By: #### C BCA, 63088-6, CMP, , 1988-03, 98320- 0 #### [facility] ([id number]) [address] [place] [address] 11727 #### FEPR #### [facility] ([id number]) [address], [address] [place] [address] NEUTROPHILS ABSOLUTE COUNT BY AUTOMATED COUNT 4.9 10*3/uL Normal 1.5-6.6 [facility] Comment on above: Performed By: #### C BCA, 93138-4, CMP, 00952-6, 1987-5, 40928- 0 #### [facility] ([id number]) [address] [place] [address] 66932 #### FEPR #### [facility] ([id number]) [address] [facility], [address] [place] [address] NEUTROPHILS RELATIVE PERCENT BY AUTOMATED COUNT 69.9 % Normal [facility] Comment on above: Performed By: #### C BCA, 67211-6, CMP, 53059-6, 1988-03, 17498- 0 #### [facility] ([id number]) [address] [place] [address] 86147 #### FEPR #### [facility] ([id number]) [address], [address] [place] [address] Platelet mean volume (Bld) [Entitic vol] 6.6 fL Low 7-12 [facility] Comment on above: Performed By: #### C AMARILYS, 83350-0, CMP, 34355-1, 1988-03, 30525- 0 #### [facility] ([id number]) [address] [place] [address] 00151 #### FEPR #### [facility] ([id number]) [address], [address] [place] [address] Platelets (Bld) [#/Vol] 271 10*3/uL Normal 150-450 [facility] Comment on above: Performed By: #### C BCA, 94718-1, CMP, 21988-1, 1988-03, 61868- 0 #### [facility] ([id number]) [address] [place] [address] 76119 #### FEPR #### [facility] ([id number]) [address], [address] [place] [address] RBC COUNT 4.62 X10E12/L Normal 4.1-5.7 [facility] Comment on above: Performed By: #### C BCA, 31568-8, CMP, 30293-3, 1988-03, 34255- 0 #### [facility] ([id number]) [address] [place] [address] 52612 #### FEPR #### [facility] ([id number]) [address], [address] [place] [address] WBC (Bld) [#/Vol] 6.9 10*3/uL Normal 4-11 [facility] Comment on above: Performed By: #### C BCA, 38049-7, CMP, 44854-3, 1988-03, 34881- 0 #### [facility] ([id number]) [address] [place] [address] 62649 #### FEPR #### [facility] ([id number]) [address], [address] [place] [address] FERRITINon 04-27-2025 Ferritin [Mass/Vol] 84 ng/mL Normal 24-336 [facility] Comment on above: Performed By: #### C BCA, 00393-8, CMP, 88787-7, 1988-03, 49730- 0 #### [facility] ([id number]) [address] [place] [address] 49399 #### FEPR #### [facility] ([id number]) [address], [address] [place] [address] IRON AND TIBCon 04-27-2025 Iron [Mass/Vol] 40 ug/dL Low 50-212 [facility] Comment on above: Performed By: #### C BCA, 15780-8, CMP, 23009-1, 1988-03, 69571- 0 #### [facility] ([id number]) [address] [place] [address] 48805 #### FEPR #### [facility] ([id number]) [address], [address] [place] [address] IRON BINDING 308 ug/dL Normal 250-425 [facility] Comment on above: Performed By: #### C BCA, 89396-5, CMP, 43146-0, 1988-03, 94459- 0 #### [facility] ([id number]) [address] [place] [address] 80207 #### FEPR #### [facility] ([id number]) [address] [facility], [address] [place] [address] IRON SATURATION 13 % SATURATION Low 20-[address] [facility] Comment on above: Performed By: #### C BCA, 00685-6, CMP, 23153-2, 1988-03, 53830- 0 #### [facility] ([id number]) [address] [place] [address] 94889 #### FEPR #### [facility] ([id number]) [address] [facility], [address] [place] [address] Transferrin [Mass/Vol] 220 mg/dL Normal 168-336 [facility] Comment on above: Performed By: #### C BCA, 70216-4, CMP, 49950-4, 1988-03, 63811- 0 #### [facility] ([id number]) [address] [place] [address] 36112 #### FEPR #### [facility] ([id number]) [address] [facility], [address] [place] [address] CBC AND AUTO DIFFon 08-02-20 24 ABSOLUTE BASOPHIL 0.0 X10E9/L Normal 0.0-0.2 [facility] Comment on above: Performed By: #### C AMARILYS, 62057-8, CMP, 91517-7, 1988-03, 21198 0 #### [facility] ([id number]) [address] [place] [address] 12902 #### FEPR #### [facility] ([id number]) [address] [facility], [address] [place] [address] ABSOLUTE NEUTROPHIL 4.4 X10E9/L Normal 1.5-6.[address] [facility] Comment on above: Performed By: #### C AMRAILYS, 61307-3, CMP, 26025-5, 1988-03, 41621- 0 #### [facility] ([id number]) [address] [place] [address] 47329 #### FEPR #### [facility] ([id number]) [address] [facility], [address] [place] [address] Basophils/100 WBC (Bld) 0.5 % Normal [facility] Comment on above: Performed By: #### C AMARILYS, 98862-0, CMP, 64907-2, 1988-03, 10582- 0 #### [facility] ([id number]) [address] [place] [address] 17019 #### FEPR #### [facility] ([id number]) [address] [facility], [address] [place] [address] Eosinophils (Bld) [#/Vol] 0.3 10*3/uL Normal 0.0-0.4 [facility] Comment on above: Performed By: #### C BCA, 45972-1, CMP, , 1988-03, 19984- 0 #### [facility] ([id number]) [address] [place] [address] 97519 #### FEPR #### [facility] ([id number]) [address], [address] [place] [address] Eosinophils/100 WBC (Bld) 4.2 % Normal [facility] Comment on above: Performed By: #### C BCA, 14926-1, CMP, 85754-7, 1988-03, 54110- 0 #### [facility] ([id number]) [address] [place] [address] 52727 #### FEPR #### [facility] ([id number]) [address] [facility], [address] [place] [address] Erythrocyte distribution width (RBC) [Ratio] 16.9 % High 11.5-15.0 [facility] Comment on above: Performed By: #### C AMARILYS, 80373-8, CMP, 15029-8, 1988-03, 69583- 0 #### [facility] ([id number]) [address] [place] [address] 40615 #### FEPR #### [facility] ([id number]) [address], [address] [place] [address] Hematocrit (Bld) [Volume fraction] 35.3 % Low 39-49 [facility] Comment on above: Performed By: #### C BCA, 78246-2, CMP, 33572-4, 1988-03, 89001 0 #### [facility] ([id number]) [address] [place] [address] 62983 #### FEPR #### [facility] ([id number]) [address], [address] [place] [address] Hemoglobin (Bld) [Mass/Vol] 11.4 g/dL Low 13.0-17.0 [facility] Comment on above: Performed By: #### C BCA, 68452-4, CMP, 65099-0, 1988-03, 71937- 0 #### [facility] ([id number]) [address] [place] [address] 38605 #### FEPR #### [facility] ([id number]) [address], [address] [place] [address] Lymphocytes (Bld) [#/Vol] 1.1 10*3/uL Normal 1.0-3.5 [facility] Comment on above: Performed By: #### C BCA, 58593-0, CMP, 23959-3, 1988-03, 72647- 0 #### [facility] ([id number]) [address] [place] [address] 34551 #### FEPR #### [facility] ([id number]) [address], [address] [place] [address] Lymphocytes/100 WBC (Bld) 17.8 % Normal [facility] Comment on above: Performed By: #### C BCA, 75339-5, CMP, 64483-4, 1988-03, 87771- 0 #### [facility] ([id number]) [address] [place] [address] 87194 #### FEPR #### [facility] ([id number]) [address], [address] [place] [address] MCH (RBC) [Entitic mass] 26.4 pg Low 27-34 [facility] Comment on above: Performed By: #### C BCA, 38042-9, CMP, 02302-9, 1988-03, 20479- 0 #### [facility] ([id number]) [address] [place] [address] 42033 #### FEPR #### [facility] ([id number]) [address], [address] [place] [address] MCHC (RBC) [Mass/Vol] 32.3 g/dL Normal 32-36 [facility] Comment on above: Performed By: #### C BCA, 95201-0, CMP, 76866-3, 1988-03, 60670- 0 #### [facility] ([id number]) [address] [place] [address] 59889 #### FEPR #### [facility] ([id number]) [address], [address] [place] [address] MCV (RBC) [Entitic vol] 82 fL Normal 80-100 [facility] Comment on above: Performed By: #### C BCA, 59946-9, CMP, 61684-4, 1988-03, 73334- 0 #### [facility] ([id number]) [address] [place] [address] 53659 #### FEPR #### [facility] ([id number]) [address], [address] [place] [address] Monocytes (Bld) [#/Vol] 0.4 10*3/uL Normal 0-0.9 [facility] Comment on above: Performed By: #### C BCA, 48458-1, CMP, 17050-7, 1988-03, 65789 0 #### [facility] ([id number]) [address] [place] [address] 40427 #### FEPR #### [facility] ([id number]) [address], [address] [place] [address] Monocytes/100 WBC (Bld) 7.1 % Normal [facility] Comment on above: Performed By: #### C BCA, 87220-7, CMP, 00165-1, 1988-03, 31336 0 #### [facility] ([id number]) [address] [place] [address] 86557 #### FEPR #### [facility] ([id number]) [address], [address] [place] [address] Neutrophils/100 WBC (Bld) 70.4 % Normal [facility] Comment on above: Performed By: #### C AMARILYS, 50154-6, CMP, 41642-7, 1988-03, 40705 0 #### [facility] ([id number]) [address] [place] [address] 74396 #### FEPR #### [facility] ([id number]) [address], [address] [place] [address] Platelet mean volume (Bld) [Entitic vol] 6.4 fL Low 7-12 [facility] Comment on above: Performed By: #### C AMARILYS, 06682-7, CMP, 62786-7, 1988-03, 15901 0 #### [facility] ([id number]) [address] [place] [address] 69067 #### FEPR #### [facility] ([id number]) [address], [address] [place] [address] Platelets (Bld) [#/Vol] 278 10*3/uL Normal 150-450 [facility] Comment on above: Performed By: #### C AMARILYS, 94894-2, CMP, , 1988-03, 34476 0 #### [facility] ([id number]) [address] [place] [address] 46936 #### FEPR #### [facility] ([id number]) [address], [address] [place] [address] RBC COUNT 4.30 X10E12/L Normal 4.10-5.70 [facility] Comment on above: Performed By: #### C AMARILYS, 21305-9, CMP, 58636-4, 1988-03, 05096- 0 #### [facility] ([id number]) [address] [place] [address] 72283 #### FEPR #### [facility] ([id number]) [address] [facility], [address] [place] [address] WBC (Bld) [#/Vol] 6.2 10*3/uL Normal 4.0-11.0 [facility] Comment on above: Performed By: #### C BCA, 16242-1, CMP, 76199-8, 1988-03, 39431- 0 #### [facility] ([id number]) [address] [place] [address] 74928 #### FEPR #### [facility] ([id number]) [address] [place] [address], [address] [place] [address] COMPREHENSIVE METABOLIC PANE John 08-02-2024 Albumin [Mass/Vol] 3.1 g/dL Low 3.2-5.3 [facility] Comment on above: Performed By: #### C BCA, 76653-3, CMP, 46375-8, 1988-03, 07424- 0 #### [facility] ([id number]) [address] [place] [address] 72081 #### FEPR #### [facility] ([id number]) [address] [place] [address], [address] [place] [address] ALP [Catalytic activity/Vol] 121 U/L Normal 39-130 [facility] Comment on above: Performed By: #### C BCA, 44973-7, CMP, 65591-9, 1988-03, 62660- 0 #### [facility] ([id number]) [address] [place] [address] 55165 #### FEPR #### [facility] ([id number]) [address] [place] [address], [address] [place] [address] ALT [Catalytic activity/Vol] 42 U/L High 0-40 [facility] Comment on above: Performed By: #### C BCA, 69423-3, CMP, 64908-8, 1988-03, 09122- 0 #### [facility] ([id number]) [address] [place] [address] 80620 #### FEPR #### [facility] ([id number]) [address], [address] [place] [address] Anion gap [Moles/Vol] 9 mmol/L Normal 5-15 [facility] Comment on above: Performed By: #### C BCA, 35849-4, CMP, 68165-7, 1988-03, 30516- 0 #### [facility] ([id number]) [address] [place] [address] 21105 #### FEPR #### [facility] ([id number]) [address] [facility], [address] [place] [address] AST [Catalytic activity/Vol] 24 U/L Normal 0-41 [facility] Comment on above: Performed By: #### C BCA, 24621-9, CMP, 86746-6, 1988-03, 71077- 0 #### [facility] ([id number]) [address] [place] [address] 47259 #### FEPR #### [facility] ([id number]) [address], [address] [place] [address] Bilirubin [Mass/Vol] 0.5 mg/dL Normal 0.3-1.2 [facility] Comment on above: Performed By: #### C BCA, 03952-2, CMP, 91198-4, 1988-03, 45089- 0 #### [facility] ([id number]) [address] [place] [address]99 #### FEPR #### [facility] ([id number]) [address], [address] [place] [address] Calcium [Mass/Vol] 8.3 mg/dL Low 8.5-10.5 [facility] [place] Comment on above: Performed By: #### C BCA, 93041-3, CMP, 78984-0, 1988-03, 17163- 0 #### [facility] ([id number]) [address] [place] [address] #### FEPR #### [facility] ([id number]) [address], [address] [place] [address] Chloride [Moles/Vol] 104 mmol/L Normal 98-109 [facility] Comment on above: Performed By: #### C BCA, 97430-9, CMP, 35169-3, 1988-03, 87026- 0 #### [facility] ([id number]) [address] [place] [address]64 #### FEPR #### [facility] ([id number]) [address], [address] [place] [address] CO2 [Moles/Vol] 24 mmol/L Normal 22-32 [facility] Comment on above: Performed By: #### C BCA, 45818-9, CMP, 29718-8, 1988-03, 22798- 0 #### [facility] ([id number]) [address] [place] [address] #### FEPR #### [facility] ([id number]) [address], [address] [place] [address] Creatinine [Mass/Vol] 0.81 mg/dL Normal 0.70-1.20 [facility] Comment on above: Result Comment: METH OD TRACEABLE TO IDMS STANDARD Performed By: #### C BCA, 83706-4, CMP, 52393-5, 1988-03, 93542-1 #### [facility] ([id number]) [address] [place] [address] #### FEPR #### [facility] ([id number]) [address], [address] [place] [address] eGFR (CKD-EPI) NON-RACE DEPENDENT >90 Normal >59 [facility] Comment on above: Result Comment: Reported eGFR is based on the CKD-EPI 2020 equation that does not use a race coefficient. Performed By: #### C BCA, 57683-8, CMP, 00816-8, 1988-03, 59726-7 #### [facility] ([id number]) [address] [place] [address]759 #### FEPR #### [facility] ([id number]) [address], [address] [place] [address] Glucose [Mass/Vol] 108 mg/dL High 65-99 [facility] [place] Comment on above: Performed By: #### C BCA, 11508-6, CMP, 64080-9, 1988-03, 24243- 0 #### [facility] ([id number]) [address] [place] [address]7536 #### FEPR #### [facility] ([id number]) [address] [facility], [address] [place] [address] Potassium [Moles/Vol] 3.7 mmol/L Normal 3.5-5.0 [facility] Comment on above: Performed By: #### C BCA, 46288-0, CMP, 45855-4, 1988-03, 27927- 0 #### [facility] ([id number]) [address] [place] [address]14 #### FEPR #### [facility] ([id number]) [address] [facility], [address] [place] [address] Protein [Mass/Vol] 7.0 g/dL Normal 6.0-8.0 [facility] Comment on above: Performed By: #### C BCA, 73614-5, CMP, 64389-6, 1988-03, 36516- 0 #### [facility] ([id number]) [address] [place] [address] 99152 #### FEPR #### [facility] ([id number]) [address], [address] [place] [address] Sodium [Moles/Vol] 137 mmol/L Normal 134-146 [facility] [place] Comment on above: Performed By: #### C BCA, 43183-9, CMP, 55213-7, 1988-03, 52862- 0 #### [facility] ([id number]) [address] [place] [address] #### FEPR #### [facility] ([id number]) [address], [address] [place] [address] Urea nitrogen [Mass/Vol] 18 mg/dL Normal 5-27 [facility] Comment on above: Performed By: #### C BCA, 15587-7, CMP, 36702-6, 1988-03, 10558- 0 #### [facility] ([id number]) [address] [place] [address] #### FEPR #### [facility] ([id number]) [address], [address] [place] [address] CRP [Mass/Vol]on 08-02-2024 C REACTIVE PROTEIN 1.7 mg/dL High 0.000-0.744 [facility] Comment on above: Performed By: #### C BCA, 58824-6, CMP, 07024-0, 1988-03, 03342- 0 #### [facility] ([id number]) [address] [place] [address] #### FEPR #### [facility] ([id number]) [address], [address] [place] [address] MAGNESIUMon 08-02-2024 Magnesium [Mass/Vol] 2.1 mg/dL Normal 1.8-2.6 [facility] Comment on above: Performed By: #### C BCA, 08799-6, CMP, 77827-8, 1987-5, 76756- 0 #### [facility] ([id number]) [address] [facility], [place] [address] #### FEPR #### [facility] ([id number]) [address], [address] [place] [address] CBC AND AUTO DIFFon 08-01-20 24 ABSOLUTE BASOPHIL 0.0 X10E9/L Normal 0.0-0.2 [facility] Comment on above: Performed By: #### 6 30-4 #### [facility] ([id number]) [address], [address] [place] [address] ABSOLUTE NEUTROPHIL 4.4 X10E9/L Normal 1.5-6.[address] [facility] Comment on above: Performed By: #### 6 30-4 #### [facility] ([id number]) [address], [address] [place] [address] Basophils/100 WBC (Bld) 0.6 % Normal [facility] Comment on above: Performed By: #### 6 30-4 #### [facility] ([id number]) [address] [address] [place] [address] Eosinophils (Bld) [#/Vol] 0.3 10*3/uL Normal 0.0-0.4 [facility] Comment on above: Performed By: #### 6 30-4 #### [facility] ([id number]) [address], [address] [place] [address] Eosinophils/100 WBC (Bld) 5.0 % Normal [facility] Comment on above: Performed By: #### 6 30-4 #### [facility] ([id number]) [address] [place] [address] Erythrocyte distribution width (RBC) [Ratio] 16.6 % High 11.5-15.0 [facility] Comment on above: Performed By: #### 6 30-4 #### [facility] ([id number]) [address], [address] [place] [address] Hematocrit (Bld) [Volume fraction] 35.3 % Low 39-49 [facility] Comment on above: Performed By: #### 6 30-4 #### [facility] ([id number]) [address] [facility] [address] [place] [address] Hemoglobin (Bld) [Mass/Vol] 11.4 g/dL Low 13.0-17.0 [facility] Comment on above: Performed By: #### 6 30-4 #### [facility] ([id number]) [address] [place] [address] Lymphocytes (Bld) [#/Vol] 1.1 10*3/uL Normal 1.0-3.5 [facility] Comment on above: Performed By: #### 6 30-4 #### [facility] ([id number]) [address], [address] [place] [address] Lymphocytes/100 WBC (Bld) 17.2 % Normal [facility] Comment on above: Performed By: #### 6 30-4 #### [facility] ([id number]) [address] [place] [address] MCH (RBC) [Entitic mass] 26.8 pg Low 27-34 [facility] Comment on above: Performed By: #### 6 30-4 #### [facility] ([id number]) [address] [place] [address] MCHC (RBC) [Mass/Vol] 32.3 g/dL Normal 32-36 [facility] Comment on above: Performed By: #### 6 30-4 #### [facility] ([id number]) [address] [place] [address] MCV (RBC) [Entitic vol] 83 fL Normal 80-100 [facility] Comment on above: Performed By: #### 6 30-4 #### [facility] ([id number]) [address] [place] [address] Monocytes (Bld) [#/Vol] 0.4 10*3/uL Normal 0-0.9 [facility] Comment on above: Performed By: #### 6 30-4 #### [facility] ([id number]) [address] [place] [address] Monocytes/100 WBC (Bld) 7.2 % Normal [facility] Comment on above: Performed By: #### 6 30-4 #### [facility] ([id number]) [address] [place] [address] Neutrophils/100 WBC (Bld) 70.0 % Normal [facility] Comment on above: Performed By: #### 6 30-4 #### [facility] ([id number]) [address], [address] [place] [address] Platelet mean volume (Bld) [Entitic vol] 6.1 fL Low 7-12 [facility] Comment on above: Performed By: #### 6 30-4 #### [facility] ([id number]) [address] [place] [address] Platelets (Bld) [#/Vol] 310 10*3/uL Normal 150-450 [facility] Comment on above: Performed By: #### 6 30-4 #### [facility] ([id number]) [address] [place] [address] RBC COUNT 4.24 X10E12/L Normal 4.10-5.70 [facility] Comment on above: Performed By: #### 6 30-4 #### [facility] ([id number]) [address] [place] [address] WBC (Bld) [#/Vol] 6.2 10*3/uL Normal 4.0-11.0 [facility] Comment on above: Performed By: #### 6 30-4 #### [facility] ([id number]) [address], [address] [place] [address] COMPREHENSIVE METABOLIC PANE John 08-01-2024 Albumin [Mass/Vol] 3.4 g/dL Normal 3.2-5.3 [facility] Comment on above: Performed By: #### 6 30-4 #### [facility] ([id number]) [address], [address] [place] [address] ALP [Catalytic activity/Vol] 131 U/L High 39-130 [facility] Comment on above: Performed By: #### 6 30-4 #### [facility] ([id number]) [address], [address] [place] [address] ALT [Catalytic activity/Vol] 52 U/L High 0-40 [facility] Comment on above: Performed By: #### 6 30-4 #### [facility] ([id number]) [address] [place] [address] Anion gap [Moles/Vol] 5 mmol/L Normal 5-15 [facility] Comment on above: Performed By: #### 6 30-4 #### [facility] ([id number]) [address], [address] [place] [address] AST [Catalytic activity/Vol] 28 U/L Normal 0-41 [facility] Comment on above: Performed By: #### 6 30-4 #### [facility] ([id number]) [address] [place] [address] Bilirubin [Mass/Vol] 0.4 mg/dL Normal 0.3-1.2 [facility] Comment on above: Performed By: #### 6 30-4 #### [facility] ([id number]) [address], [address] [place] [address] Calcium [Mass/Vol] 8.7 mg/dL Normal 8.5-10.5 [facility] Comment on above: Performed By: #### 6 30-4 #### [facility] ([id number]) [address], [address] [place] [address] Chloride [Moles/Vol] 105 mmol/L Normal 98-109 [facility] Comment on above: Performed By: #### 6 30-4 #### [facility] ([id number]) [address], [address] [place] [address] CO2 [Moles/Vol] 27 mmol/L Normal 22-32 [facility] Comment on above: Performed By: #### 6 30-4 #### [facility] ([id number]) [address] [place] [address] Creatinine [Mass/Vol] 0.78 mg/dL Normal 0.70-1.20 [facility] Comment on above: Result Comment: METH OD TRACEABLE TO IDMS STANDARD Performed By: #### 6 30-4 #### [facility] ([id number]) [address], [address] [place] [address] eGFR (CKD-EPI) NON-RACE DEPENDENT >90 Normal >59 [facility] Comment on above: Result Comment: Reported eGFR is based on the CKD-EPI 2020 equation that does not use a race coefficient. Performed By: #### 6 30-4 #### [facility] ([id number]) [address] [place] [address] Glucose [Mass/Vol] 108 mg/dL High 65-99 [facility] Comment on above: Performed By: #### 6 30-4 #### [facility] ([id number]) [address] [place] [address] Potassium [Moles/Vol] 4.3 mmol/L Normal 3.5-5.0 [facility] Comment on above: Performed By: #### 6 30-4 #### [facility] ([id number]) [address] [place] [address] Protein [Mass/Vol] 7.6 g/dL Normal 6.0-8.0 [facility] [place] Comment on above: Performed By: #### 6 30-4 #### [facility] ([id number]) [address] [place] [address] Sodium [Moles/Vol] 137 mmol/L Normal 134-146 [facility] [place] Comment on above: Performed By: #### 6 30-4 #### [facility] ([id number]) [address], [address] [place] [address] Urea nitrogen [Mass/Vol] 20 mg/dL Normal 5-27 [facility] Comment on above: Performed By: #### 6 30-4 #### [facility] ([id number]) [address] [place] [address] MAGNESIUMon 08-01-2024 Magnesium [Mass/Vol] 2.4 mg/dL Normal 1.8-2.6 [facility] Comment on above: Performed By: #### 6 30-4 #### [facility] ([id number]) [address], [address] [place] [address] Vancomycin trough [Mass/Vol] on 08-01-2024 VANCOMYCIN TROUGH 16.2 ug/mL Normal 5.0-20.0 [facility] Comment on above: Performed By: #### 6 30-4 #### [facility] ([id number]) [address], [address] [place] [address] CBC AND AUTO DIFFon 07-31-20 24 ABSOLUTE BASOPHIL 0.0 X10E9/L Normal 0.0-0.2 [facility] Comment on above: Performed By: #### U A #### [facility] ([id number]) [address], [address] [place] [address] ABSOLUTE NEUTROPHIL 4.4 X10E9/L Normal 1.5-6.[address] [facility] Comment on above: Performed By: #### U A #### [facility] ([id number]) [address], [facility] [address] [place] [address] Basophils/100 WBC (Bld) 0.6 % Normal [facility] Comment on above: Performed By: #### U A #### [facility] ([id number]) [address] [address] [place] [address] Eosinophils (Bld) [#/Vol] 0.3 10*3/uL Normal 0.0-0.4 [facility] Comment on above: Performed By: #### U A #### [facility] ([id number]) [address], [address] [place] [address] Eosinophils/100 WBC (Bld) 4.5 % Normal [facility] Comment on above: Performed By: #### U A #### [facility] ([id number]) [address] [address] [place] [address] Erythrocyte distribution width (RBC) [Ratio] 16.9 % High 11.5-15.0 [facility] Comment on above: Performed By: #### U A #### [facility] ([id number]) [address] [address] [place] [address] Hematocrit (Bld) [Volume fraction] 32.2 % Low 39-49 [facility] Comment on above: Performed By: #### U A #### [facility] ([id number]) [address], [address] [place] [address] Hemoglobin (Bld) [Mass/Vol] 10.5 g/dL Low 13.0-17.0 [facility] Comment on above: Performed By: #### U A #### [facility] ([id number]) [address] [place] [address] Lymphocytes (Bld) [#/Vol] 1.3 10*3/uL Normal 1.0-3.5 [facility] Comment on above: Performed By: #### U A #### [facility] ([id number]) [address] [place] [address] Lymphocytes/100 WBC (Bld) 19.9 % Normal [facility] Comment on above: Performed By: #### U A #### [facility] ([id number]) [address] [place] [address] MCH (RBC) [Entitic mass] 26.6 pg Low 27-34 [facility] Comment on above: Performed By: #### U A #### [facility] ([id number]) [address] [place] [address] MCHC (RBC) [Mass/Vol] 32.4 g/dL Normal 32-36 [facility] Comment on above: Performed By: #### U A #### [facility] ([id number]) [address] [place] [address] MCV (RBC) [Entitic vol] 82 fL Normal 80-100 [facility] Comment on above: Performed By: #### U A #### [facility] ([id number]) [address] [place] [address] Monocytes (Bld) [#/Vol] 0.4 10*3/uL Normal 0-0.9 [facility] Comment on above: Performed By: #### U A #### [facility] ([id number]) [address] [place] [address] Monocytes/100 WBC (Bld) 6.5 % Normal [facility] Comment on above: Performed By: #### U A #### [facility] ([id number]) [address] [place] [address] Neutrophils/100 WBC (Bld) 68.5 % Normal [facility] Comment on above: Performed By: #### U A #### [facility] ([id number]) [address] [address] [place] [address] Platelet mean volume (Bld) [Entitic vol] 6.3 fL Low 7-12 [facility] Comment on above: Performed By: #### U A #### [facility] ([id number]) [address] [address] [place] [address] Platelets (Bld) [#/Vol] 297 10*3/uL Normal 150-450 [facility] Comment on above: Performed By: #### U A #### [facility] ([id number]) [address] [place] [address] RBC COUNT 3.94 X10E12/L Low 4.10-5.70 [facility] Comment on above: Performed By: #### U A #### [facility] ([id number]) [address] [address] [place] [address] WBC (Bld) [#/Vol] 6.5 10*3/uL Normal 4.0-11.0 [facility] [place] Comment on above: Performed By: #### U A #### [facility] ([id number]) [address] [place] [address] COMPREHENSIVE METABOLIC PANE John 07-31-2024 Albumin [Mass/Vol] 3.0 g/dL Low 3.2-5.3 [facility] Comment on above: Performed By: #### U A #### [facility] ([id number]) [address] [place] [address] ALP [Catalytic activity/Vol] 125 U/L Normal 39-130 [facility] Comment on above: Performed By: #### U A #### [facility] ([id number]) [address] [place] [address] ALT [Catalytic activity/Vol] 57 U/L High 0-40 [facility] Comment on above: Performed By: #### U A #### [facility] ([id number]) [address] [place] [address] Anion gap [Moles/Vol] 8 mmol/L Normal 5-15 [facility] Comment on above: Performed By: #### U A #### [facility] ([id number]) [address] [place] [address] AST [Catalytic activity/Vol] 34 U/L Normal 0-41 [facility] Comment on above: Performed By: #### U A #### [facility] ([id number]) [address] [place] [address] Bilirubin [Mass/Vol] 0.5 mg/dL Normal 0.3-1.2 [facility] Comment on above: Performed By: #### U A #### [facility] ([id number]) [address] [place] [address] Calcium [Mass/Vol] 8.7 mg/dL Normal 8.5-10.5 [facility] Comment on above: Performed By: #### U A #### [facility] ([id number]) [address] [place] [address] Chloride [Moles/Vol] 105 mmol/L Normal 98-109 [facility] Comment on above: Performed By: #### U A #### [facility] ([id number]) [address] [place] [address] CO2 [Moles/Vol] 27 mmol/L Normal 22-32 [facility] Comment on above: Performed By: #### U A #### [facility] ([id number]) [address] [place] [address] Creatinine [Mass/Vol] 0.83 mg/dL Normal 0.70-1.20 [facility] Comment on above: Result Comment: METH OD TRACEABLE TO IDMS STANDARD Performed By: #### U A #### [facility] ([id number]) [address] [place] [address] eGFR (CKD-EPI) NON-RACE DEPENDENT >90 Normal >59 [facility] Comment on above: Result Comment: Reported eGFR is based on the CKD-EPI 2020 equation that does not use a race coefficient. Performed By: #### U A #### [facility] ([id number]) [address] [place] [address] Glucose [Mass/Vol] 131 mg/dL High 65-99 [facility] Comment on above: Performed By: #### U A #### [facility] ([id number]) [address] [place] [address] Potassium [Moles/Vol] 3.8 mmol/L Normal 3.5-5.0 [facility] Comment on above: Performed By: #### U A #### [facility] ([id number]) [address] [place] [address] Protein [Mass/Vol] 6.9 g/dL Normal 6.0-8.0 [facility] Comment on above: Performed By: #### U A #### [facility] ([id number]) [address] [place] [address] Sodium [Moles/Vol] 140 mmol/L Normal 134-146 [facility] Comment on above: Performed By: #### U A #### [facility] ([id number]) [address] [place] [address] Urea nitrogen [Mass/Vol] 20 mg/dL Normal 5-27 [facility] Comment on above: Performed By: #### U A #### [facility] ([id number]) [address] [place] [address] CRP [Mass/Vol]on 07-31-2024 C REACTIVE PROTEIN 4.9 mg/dL High 0.000-0.744 [facility] Comment on above: Performed By: #### 6 30-4 #### [facility] ([id number]) [address] [place] [address] MAGNESIUMon 07-31-2024 Magnesium [Mass/Vol] 2.2 mg/dL Normal 1.8-2.6 [facility] Comment on above: Performed By: #### 6 30-4 #### [facility] ([id number]) [address] [place] [address] Magnesium [Mass/Vol] 1.9 mg/dL Normal 1.8-2.6 [facility] Comment on above: Performed By: #### U A #### [facility] ([id number]) [address] [place] [address] POTASSIUMon 07-31-2024 Potassium [Moles/Vol] 3.9 mmol/L Normal 3.5-5.0 [facility] Comment on above: Performed By: #### 6 30-4 #### [facility] ([id number]) [address] [place] [address] Procalcitonin IA [Mass/Vol]o n 07-31-2024 PROCALCITONIN 0.08 ng/mL High <0.05 [facility] Comment on above: Result Comment: NOTE <0.50 ng/mL - Low risk of severe sepsis and/or septic shock. <2.00 ng/mL - Recommend retesting within 6-24 hours. >2.00 ng/mL - High risk of sepsis and/or septic shock. Performed By: #### 6 30-4 #### [facility] ([id number]) [address] [place] [address] BASIC METABOLIC PANLon 07-30 Anion gap [Moles/Vol] 7 mmol/L Normal 5-15 [facility] Comment on above: Performed By: #### 3 5492-8 #### [facility] ([id number]) [address] [place] [address] Calcium [Mass/Vol] 9.0 mg/dL Normal 8.5-10.5 [facility] Comment on above: Performed By: #### 3 5492-8 #### [facility] ([id number]) [address] [place] [address] Chloride [Moles/Vol] 106 mmol/L Normal 98-109 [facility] Comment on above: Performed By: #### 3 5492-8 #### [facility] ([id number]) [address] [place] [address] CO2 [Moles/Vol] 25 mmol/L Normal 22-32 [facility] Comment on above: Performed By: #### 3 5492-8 #### [facility] ([id number]) [address] [place] [address] Creatinine [Mass/Vol] 0.96 mg/dL Normal 0.70-1.20 [facility] Comment on above: Result Comment: METH OD TRACEABLE TO IDMS STANDARD Performed By: #### 3 5492-8 #### [facility] ([id number]) [address] [place] [address] GFR/1.73 sq M.predicted among non-blacks MDRD (S/P/Bld) [Vol rate/Area] 84 mL/min/{1.73_m2} Normal >59 [facility] Comment on above: Result Comment: Reported eGFR is based on the CKD-EPI 2020 equation that does not use a race coefficient. Performed By: #### 3 5492-8 #### [facility] ([id number]) [address] [place] [address] Glucose [Mass/Vol] 95 mg/dL Normal 65-99 [facility] Comment on above: Performed By: #### 3 5492-8 #### [facility] ([id number]) [address] [place] [address] Potassium [Moles/Vol] 4.6 mmol/L Normal 3.5-5.0 [facility] Comment on above: Result Comment: SPEC IMEN HEMOLYZED, RESULTS INCREASED Performed By: #### 3 5492-8 #### [facility] ([id number]) [address] [place] [address] Sodium [Moles/Vol] 138 mmol/L Normal 134-146 [facility] Comment on above: Performed By: #### 3 5492-8 #### [facility] ([id number]) [address] [place] [address] Urea nitrogen [Mass/Vol] 21 mg/dL Normal 5-27 [facility] Comment on above: Performed By: #### 3 5492-8 #### [facility] ([id number]) [address] [place] [address] BLOOD CULTUREon 07-30-2024 Bacteria identified Aer cx Nom (Bld) SPECIMEN NOTES SUBOPTIMAL VOLUME OF BLOOD COLLECTED, RESULTS MAY BE AFFECTED. CULTURE RESULTS NO GROWTH 5 DAYS Normal [facility] Comment on above: Performed By: #### 6 30-4 #### [facility] ([id number]) [address] [place] [address] Bacteria identified Aer cx Nom (Bld) SPECIMEN NOTES SUBOPTIMAL VOLUME OF BLOOD COLLECTED, RESULTS MAY BE AFFECTED. CULTURE RESULTS NO GROWTH 5 DAYS Normal [facility] Comment on above: Performed By: #### 6 30-4 #### [facility] ([id number]) [address], [address] [place] [address] CBC AND AUTO DIFFon 07-30-20 24 ABSOLUTE BASOPHIL 0.1 X10E9/L Normal 0.0-0.2 [facility] [place] Comment on above: Performed By: #### 3 5492-8 #### [facility] ([id number]) [address], [address] [place] [address] ABSOLUTE NEUTROPHIL 5.5 X10E9/L Normal 1.5-6.[address] [facility] Comment on above: Performed By: #### 3 5492-8 #### [facility] ([id number]) [address], [address] [place] [address] Basophils/100 WBC (Bld) 1.1 % Normal [facility] Comment on above: Performed By: #### 3 5492-8 #### [facility] ([id number]) [address], [address] [place] [address] Eosinophils (Bld) [#/Vol] 0.2 10*3/uL Normal 0.0-0.4 [facility] Comment on above: Performed By: #### 3 5492-8 #### [facility] ([id number]) [address], [address] [place] [address] Eosinophils/100 WBC (Bld) 2.7 % Normal [facility] Comment on above: Performed By: #### 3 5492-8 #### [facility] ([id number]) [address], [address] [place] [address] Erythrocyte distribution width (RBC) [Ratio] 16.5 % High 11.5-15.0 [facility] Comment on above: Performed By: #### 3 5492-8 #### [facility] ([id number]) [address], [address] [place] [address] Hematocrit (Bld) [Volume fraction] 36.2 % Low 39-49 [facility] Comment on above: Performed By: #### 3 5492-8 #### [facility] ([id number]) [address], [address] [place] [address] Hemoglobin (Bld) [Mass/Vol] 12.0 g/dL Low 13.0-17.0 [facility] Comment on above: Performed By: #### 3 5492-8 #### [facility] ([id number]) [address], [address] [place] [address] Lymphocytes (Bld) [#/Vol] 1.5 10*3/uL Normal 1.0-3.5 [facility] Comment on above: Performed By: #### 3 5492-8 #### [facility] ([id number]) [address], [address] [place] [address] Lymphocytes/100 WBC (Bld) 19.1 % Normal [facility] Comment on above: Performed By: #### 3 5492-8 #### [facility] ([id number]) [address], [address] [place] [address] MCH (RBC) [Entitic mass] 26.9 pg Low 27-34 [facility] Comment on above: Performed By: #### 3 5492-8 #### [facility] ([id number]) [address], [address] [place] [address] MCHC (RBC) [Mass/Vol] 33.2 g/dL Normal 32-36 [facility] Comment on above: Performed By: #### 3 5492-8 #### [facility] ([id number]) [address], [address] [place] [address] MCV (RBC) [Entitic vol] 81 fL Normal 80-100 [facility] Comment on above: Performed By: #### 3 5492-8 #### [facility] ([id number]) [address], [address] [place] [address] Monocytes (Bld) [#/Vol] 0.5 10*3/uL Normal 0-0.9 [facility] Comment on above: Performed By: #### 3 5492-8 #### [facility] ([id number]) [address], [address] [place] [address] Monocytes/100 WBC (Bld) 6.7 % Normal [facility] Comment on above: Performed By: #### 3 5492-8 #### [facility] ([id number]) [address], [address] [place] [address] Neutrophils/100 WBC (Bld) 70.4 % Normal [facility] Comment on above: Performed By: #### 3 5492-8 #### [facility] ([id number]) [address], [address] [place] [address] Platelet mean volume (Bld) [Entitic vol] 7.1 fL Normal 7-12 [facility] Comment on above: Performed By: #### 3 5492-8 #### [facility] ([id number]) [address], [address] [place] [address] Platelets (Bld) [#/Vol] 393 10*3/uL Normal 150-450 [facility] Comment on above: Performed By: #### 3 5492-8 #### [facility] ([id number]) [address], [address] [place] [address] RBC COUNT 4.46 X10E12/L Normal 4.10-5.70 [facility] Comment on above: Performed By: #### 3 5492-8 #### [facility] ([id number]) [address], [address] [place] [address] WBC (Bld) [#/Vol] 7.8 10*3/uL Normal 4.0-11.0 [facility] Comment on above: Performed By: #### 3 5492-8 #### [facility] ([id number]) [address], [facility] [address] [place] [address] Lactate (P mary alice) [Moles/Vol]o n 07-30-2024 LACTATE W/REFLEX 1.2 mmol/L Normal 0.4-2.0 [facility] Comment on above: Result Comment: Result did not trigger repeat Lactate, re-order if needed. Performed By: #### U A #### [facility] ([id number]) [address] [address] [place] [address] MAGNESIUMon 07-30-2024 Magnesium [Mass/Vol] 2.0 mg/dL Normal 1.8-2.6 [facility] Comment on above: Result Comment: SPEC IMEN HEMOLYZED, RESULTS INCREASED Performed By: #### U A #### [facility] ([id number]) [address] [address] [place] [address] Natriuretic peptide B [Mass/ Vol]on 07-30-2024 Natriuretic peptide B (Bld) [Mass/Vol] 10 pg/mL Normal <100.0 [facility] Comment on above: Performed By: #### U A #### [facility] ([id number]) [address], [address] [place] [address] Troponin I.cardiac High sens itivity method [Mass/Vol]on 07-30-2024 1 HOUR TROP I, HIGH SENSITIVITY 12 ng/L Normal <21 [facility] Comment on above: Performed By: #### U A #### [facility] ([id number]) [address] [facility], [address] [place] [address] TROPONIN I, HIGH SENSITIVITY 11 ng/L Normal <21 [facility] Comment on above: Performed By: #### U A #### [facility] ([id number]) [address] [facility] [place] [address] XR FOOT RT MIN 3 VWSon 07-30 [...] Patrick MD on 07/30/2024 7:10 PM Normal [facility] XR TIBIA FIBULA RT MIN 2 VWS [...] Mo Alba on 07/30/2024 7:14 PM Normal [facility] Opticell Alginate AGon 07-02 Applied in clinic today. MANUALLY TRANSCRIBED RESULTS [facility] BASIC METABOLIC PANLon 06-10 Anion gap [Moles/Vol] 8 mmol/L Normal 5-15 [facility] Comment on above: Performed By: #### 3 5492-8 #### [facility] ([id number]) [address], [address] [place] [address] Calcium [Mass/Vol] 9.1 mg/dL Normal 8.5-10.5 [facility] [place] Comment on above: Performed By: #### 3 5492-8 #### [facility] ([id number]) [address], [address] [place] [address] Chloride [Moles/Vol] 102 mmol/L Normal 98-109 [facility] Comment on above: Performed By: #### 3 5492-8 #### [facility] ([id number]) [address], [address] [place] [address] CO2 [Moles/Vol] 27 mmol/L Normal 22-32 [facility] Comment on above: Performed By: #### 3 5492-8 #### [facility] ([id number]) [address], [address] [place] [address] Creatinine [Mass/Vol] 0.80 mg/dL Normal 0.70-1.20 [facility] Comment on above: Result Comment: METH OD TRACEABLE TO IDMS STANDARD Performed By: #### 3 5492-8 #### [facility] ([id number]) [address], [address] [place] [address] eGFR (CKD-EPI) NON-RACE DEPENDENT >90 Normal >59 [facility] Comment on above: Result Comment: Reported eGFR is based on the CKD-EPI 1 equation that does not use a race coefficient. Performed By: #### 3 5492-8 #### [facility] ([id number]) [address], [address] [place] [address] Glucose [Mass/Vol] 102 mg/dL High 65-99 [facility] [place] Comment on above: Performed By: #### 3 5492-8 #### [facility] ([id number]) [address], [address] [place] [address] Potassium [Moles/Vol] 3.8 mmol/L Normal 3.5-5.0 [facility] Comment on above: Performed By: #### 3 5492-8 #### [facility] ([id number]) [address], [address] [place] [address] Sodium [Moles/Vol] 137 mmol/L Normal 134-146 [facility] [place] Comment on above: Performed By: #### 3 5492-8 #### [facility] ([id number]) [address], [address] [place] [address] Urea nitrogen [Mass/Vol] 13 mg/dL Normal 5-27 [facility] Comment on above: Performed By: #### 3 5492-8 #### [facility] ([id number]) [address], [address] [place] [address] CBC AND AUTO DIFFon 06-10-20 ABSOLUTE BASOPHIL 0.0 X10E9/L Normal 0.0-0.2 [facility] Comment on above: Performed By: #### 3 5492-8 #### [facility] ([id number]) [address], [address] [place] [address] ABSOLUTE NEUTROPHIL 5.3 X10E9/L Normal 1.5-6.[address] [facility] Comment on above: Performed By: #### 3 5492-8 #### [facility] ([id number]) [address], [address] [place] [address] Basophils/100 WBC (Bld) 0.5 % Normal [facility] Comment on above: Performed By: #### 3 5492-8 #### [facility] ([id number]) [address], [address] [place] [address] Eosinophils (Bld) [#/Vol] 0.2 10*3/uL Normal 0.0-0.4 [facility] Comment on above: Performed By: #### 3 5492-8 #### [facility] ([id number]) [address], [address] [place] [address] Eosinophils/100 WBC (Bld) 3.2 % Normal [facility] Comment on above: Performed By: #### 3 5492-8 #### [facility] ([id number]) [address], [address] [place] [address] Erythrocyte distribution width (RBC) [Ratio] 16.6 % High 11.5-15.0 [facility] Comment on above: Performed By: #### 3 5492-8 #### [facility] ([id number]) [address], [address] [place] [address] Hematocrit (Bld) [Volume fraction] 34.7 % Low 39-49 [facility] Comment on above: Performed By: #### 3 5492-8 #### [facility] ([id number]) [address], [address] [place] [address] Hemoglobin (Bld) [Mass/Vol] 11.5 g/dL Low 13.0-17.0 [facility] Comment on above: Performed By: #### 3 5492-8 #### [facility] ([id number]) [address], [address] [place] [address] Lymphocytes (Bld) [#/Vol] 1.1 10*3/uL Normal 1.0-3.5 [facility] Comment on above: Performed By: #### 3 5492-8 #### [facility] ([id number]) [address], [address] [place] [address] Lymphocytes/100 WBC (Bld) 15.5 % Normal [facility] Comment on above: Performed By: #### 3 5492-8 #### [facility] ([id number]) [address], [address] [place] [address] MCH (RBC) [Entitic mass] 27.7 pg Normal 27-34 [facility] Comment on above: Performed By: #### 3 5492-8 #### [facility] ([id number]) [address], [address] [place] [address] MCHC (RBC) [Mass/Vol] 33.0 g/dL Normal 32-36 [facility] Comment on above: Performed By: #### 3 5492-8 #### [facility] ([id number]) [address], [address] [place] [address] MCV (RBC) [Entitic vol] 84 fL Normal 80-100 [facility] Comment on above: Performed By: #### 3 5492-8 #### [facility] ([id number]) [address], [address] [place] [address] Monocytes (Bld) [#/Vol] 0.4 10*3/uL Normal 0-0.9 [facility] Comment on above: Performed By: #### 3 5492-8 #### [facility] ([id number]) [address], [address] [place] [address] Monocytes/100 WBC (Bld) 5.5 % Normal [facility] Comment on above: Performed By: #### 3 5492-8 #### [facility] ([id number]) [address], [address] [place] [address] Neutrophils/100 WBC (Bld) 75.3 % Normal [facility] Comment on above: Performed By: #### 3 5492-8 #### [facility] ([id number]) [address], [address] [place] [address] Platelet mean volume (Bld) [Entitic vol] 6.3 fL Low 7-12 [facility] Comment on above: Performed By: #### 3 5492-8 #### [facility] ([id number]) [address], [address] [place] [address] Platelets (Bld) [#/Vol] 268 10*3/uL Normal 150-450 [facility] Comment on above: Performed By: #### 3 5492-8 #### [facility] ([id number]) [address], [facility] [address] [place] [address] RBC COUNT 4.13 X10E12/L Normal 4.10-5.70 [facility] Comment on above: Performed By: #### 3 5492-8 #### [facility] ([id number]) [address] [address] [place] [address] WBC (Bld) [#/Vol] 7.0 10*3/uL Normal 4.0-11.0 [facility] Comment on above: Performed By: #### 3 5492-8 #### [facility] ([id number]) [address], [facility] [address] [place] [address] Fibrin D-dimer DDU (PPP) [Ma ss/Vol]on 06-10-2024 D DIMER 3432 ng/mL DDU High <255 [facility] Comment on above: Result Comment: Results >=255ng/mL [...] level. Performed By: #### 3 5492-8 #### [facility] ([id number]) [address] [address] [place] [address] BASIC METABOLIC PANLon 06-02 Anion gap [Moles/Vol] 10 mmol/L Normal 5-15 [facility] Comment on above: Performed By: #### 3 5492-8 #### [facility] ([id number]) [address] [address] [place] [address] Calcium [Mass/Vol] 9.7 mg/dL Normal 8.5-10.5 [facility] Comment on above: Performed By: #### 3 5492-8 #### [facility] ([id number]) [address], [address] [place] [address] Chloride [Moles/Vol] 103 mmol/L Normal 98-109 [facility] Comment on above: Performed By: #### 3 5492-8 #### [facility] ([id number]) [address], [address] [place] [address] CO2 [Moles/Vol] 29 mmol/L Normal 22-32 [facility] Comment on above: Performed By: #### 3 5492-8 #### [facility] ([id number]) [address], [address] [place] [address] Creatinine [Mass/Vol] 0.93 mg/dL Normal 0.60-1.30 [facility] Comment on above: Result Comment: METH OD TRACEABLE TO IDMS STANDARD Performed By: #### 3 5492-8 #### [facility] ([id number]) [address], [address] [place] [address] GFR/1.73 sq M.predicted among non-blacks MDRD (S/P/Bld) [Vol rate/Area] 87 mL/min/{1.73_m2} Normal >59 [facility] Comment on above: Result Comment: Reported eGFR is based on the CKD-EPI 2020 equation that does not use a race coefficient. Performed By: #### 3 5492-8 #### [facility] ([id number]) [address] [place] [address] Glucose [Mass/Vol] 96 mg/dL Normal 65-99 [facility] Comment on above: Performed By: #### 3 5492-8 #### [facility] ([id number]) [address] [place] [address] Potassium [Moles/Vol] 4.2 mmol/L Normal 3.5-5.0 [facility] Comment on above: Performed By: #### 3 5492-8 #### [facility] ([id number]) [address], [address] [place] [address] Sodium [Moles/Vol] 142 mmol/L Normal 134-146 [facility] Comment on above: Performed By: #### 3 5492-8 #### [facility] ([id number]) [address], [address] [place] [address] Urea nitrogen [Mass/Vol] 18 mg/dL Normal 5-27 [facility] Comment on above: Performed By: #### 3 5492-8 #### [facility] ([id number]) [address], [address] [place] [address] Office Visiton 05-31-2024 Follow-up visit [id number] Royce Delaney 1950 M Date Provider Department Center 05/31/2024 [facility] MP ORTHO MPORTHO No family history on file Level of Service:21725 [place] POSTOP FOLLOW UP VISIT RELATED TO ORIGINAL PX (GC) Reason for Visit and Comments: Post-op [483] [facility] 36on 05-28-2024 36 VERBAL SENT. [facility] o [facility] 36 Patient discharged f [facility], Rashmi with [facility] would like to resume therapy and add home nursing services once a week for 2 weeks [phone] [facility] CBC AND AUTO DIFFon 05-27-20 24 ABSOLUTE BASOPHIL 0.1 X10E9/L Normal 0.0-0.2 [facility] [place] Comment on above: Performed By: #### 3 5492-8 #### [facility] ([id number]) [address], [address] [place] [address] ABSOLUTE NEUTROPHIL 5.9 X10E9/L Normal 1.5-6.[address] [facility] Comment on above: Performed By: #### 3 5492-8 #### [facility] ([id number]) [address], [address] [place] [address] Basophils/100 WBC (Bld) 0.7 % Normal [facility] Comment on above: Performed By: #### 3 5492-8 #### [facility] ([id number]) [address] [place] [address] Eosinophils (Bld) [#/Vol] 0.3 10*3/uL Normal 0.0-0.4 [facility] Comment on above: Performed By: #### 3 5492-8 #### [facility] ([id number]) [address] [place] [address] Eosinophils/100 WBC (Bld) 3.4 % Normal [facility] Comment on above: Performed By: #### 3 5492-8 #### [facility] ([id number]) [address] [place] [address] Erythrocyte distribution width (RBC) [Ratio] 16.4 % High 11.5-15.0 [facility] Comment on above: Performed By: #### 3 5492-8 #### [facility] ([id number]) [address] [place] [address] Hematocrit (Bld) [Volume fraction] 35.9 % Low 39-49 [facility] Comment on above: Performed By: #### 3 5492-8 #### [facility] ([id number]) [address] [place] [address] Hemoglobin (Bld) [Mass/Vol] 11.7 g/dL Low 13.0-17.0 [facility] Comment on above: Performed By: #### 3 5492-8 #### [facility] ([id number]) [address] [place] [address] Lymphocytes (Bld) [#/Vol] 1.3 10*3/uL Normal 1.0-3.5 [facility] Comment on above: Performed By: #### 3 5492-8 #### [facility] ([id number]) [address] [place] [address] Lymphocytes/100 WBC (Bld) 16.0 % Normal [facility] Comment on above: Performed By: #### 3 5492-8 #### [facility] ([id number]) [address], [facility] [address] [place] [address] MCH (RBC) [Entitic mass] 27.9 pg Normal 27-34 [facility] Comment on above: Performed By: #### 3 5492-8 #### [facility] ([id number]) [address], [address] [place] [address] MCHC (RBC) [Mass/Vol] 32.6 g/dL Normal 32-36 [facility] Comment on above: Performed By: #### 3 5492-8 #### [facility] ([id number]) [address] [place] [address] MCV (RBC) [Entitic vol] 86 fL Normal 80-100 [facility] Comment on above: Performed By: #### 3 5492-8 #### [facility] ([id number]) [address], [address] [place] [address] Monocytes (Bld) [#/Vol] 0.5 10*3/uL Normal 0-0.9 [facility] Comment on above: Performed By: #### 3 5492-8 #### [facility] ([id number]) [address] [place] [address] Monocytes/100 WBC (Bld) 6.1 % Normal [facility] Comment on above: Performed By: #### 3 5492-8 #### [facility] ([id number]) [address] [place] [address] Neutrophils/100 WBC (Bld) 73.8 % Normal [facility] Comment on above: Performed By: #### 3 5492-8 #### [facility] ([id number]) [address] [place] [address] Platelet mean volume (Bld) [Entitic vol] 6.1 fL Low 7-12 [facility] Comment on above: Performed By: #### 3 5492-8 #### [facility] ([id number]) [address] [place] [address] Platelets (Bld) [#/Vol] 345 10*3/uL Normal 150-450 [facility] Comment on above: Performed By: #### 3 5492-8 #### [facility] ([id number]) [address] [place] [address] RBC COUNT 4.19 X10E12/L Normal 4.10-5.70 [facility] Comment on above: Performed By: #### 3 5492-8 #### [facility] ([id number]) [address] [address] [place] [address] WBC (Bld) [#/Vol] 8.0 10*3/uL Normal 4.0-11.0 [facility] Comment on above: Performed By: #### 3 5492-8 #### [facility] ([id number]) [address], [address] [place] [address] COMPREHENSIVE METABOLIC PANE John 05-27-2024 Albumin [Mass/Vol] 3.5 g/dL Normal 3.2-5.3 [facility] Comment on above: Performed By: #### 3 5492-8 #### [facility] ([id number]) [address] [place] [address] ALP [Catalytic activity/Vol] 126 U/L Normal 39-130 [facility] Comment on above: Performed By: #### 3 5492-8 #### [facility] ([id number]) [address] [place] [address] ALT [Catalytic activity/Vol] 51 U/L High 0-40 [facility] Comment on above: Performed By: #### 3 5492-8 #### [facility] ([id number]) [address] [place] [address] Anion gap [Moles/Vol] 2 mmol/L Low 5-15 [facility] Comment on above: Performed By: #### 3 5492-8 #### [facility] ([id number]) [address] [place] [address] AST [Catalytic activity/Vol] 28 U/L Normal 0-41 [facility] Comment on above: Performed By: #### 3 5492-8 #### [facility] ([id number]) [address] [place] [address] Bilirubin [Mass/Vol] 0.4 mg/dL Normal 0.3-1.2 [facility] Comment on above: Performed By: #### 3 5492-8 #### [facility] ([id number]) [address] [place] [address] Calcium [Mass/Vol] 8.7 mg/dL Normal 8.5-10.5 [facility] Comment on above: Performed By: #### 3 5492-8 #### [facility] ([id number]) [address] [place] [address] Chloride [Moles/Vol] 106 mmol/L Normal 98-109 [facility] Comment on above: Performed By: #### 3 5492-8 #### [facility] ([id number]) [address] [place] [address] CO2 [Moles/Vol] 26 mmol/L Normal 22-32 [facility] Comment on above: Performed By: #### 3 5492-8 #### [facility] ([id number]) [address] [place] [address] Creatinine [Mass/Vol] 0.79 mg/dL Normal 0.70-1.20 [facility] Comment on above: Result Comment: METH OD TRACEABLE TO IDMS STANDARD Performed By: #### 3 5492-8 #### [facility] ([id number]) [address] [place] [address] eGFR (CKD-EPI) NON-RACE DEPENDENT >90 Normal >59 [facility] Comment on above: Result Comment: Reported eGFR is based on the CKD-EPI 2020 equation that does not use a race coefficient. Performed By: #### 3 5492-8 #### [facility] ([id number]) [address] [place] [address] Glucose [Mass/Vol] 112 mg/dL High 65-99 [facility] Comment on above: Performed By: #### 3 5492-8 #### [facility] ([id number]) [address] [place] [address] Potassium [Moles/Vol] 3.7 mmol/L Normal 3.5-5.0 [facility] Comment on above: Performed By: #### 3 5492-8 #### [facility] ([id number]) [address] [place] [address] Protein [Mass/Vol] 7.5 g/dL Normal 6.0-8.0 [facility] Comment on above: Performed By: #### 3 5492-8 #### [facility] ([id number]) [address] [place] [address] Sodium [Moles/Vol] 134 mmol/L Normal 134-146 [facility] Comment on above: Performed By: #### 3 5492-8 #### [facility] ([id number]) [address] [place] [address] Urea nitrogen [Mass/Vol] 17 mg/dL Normal 5-27 [facility] Comment on above: Performed By: #### 3 5492-8 #### [facility] ([id number]) [address] [place] [address] MAGNESIUMon 05-27-2024 Magnesium [Mass/Vol] 2.1 mg/dL Normal 1.8-2.6 [facility] Comment on above: Performed By: #### 3 5492-8 #### [facility] ([id number]) [address] [place] [address] Vancomycin trough [Mass/Vol] on 05-27-2024 VANCOMYCIN TROUGH 10.5 ug/mL Normal 5.0-20.0 [facility] Comment on above: Performed By: #### 3 5492-8 #### [facility] ([id number]) [address] [place] [address] CBC AND AUTO DIFFon 05-26-20 24 ABSOLUTE BASOPHIL 0.1 X10E9/L Normal 0.0-0.2 [facility] [place] Comment on above: Performed By: #### P INR, 99067-0 #### [facility] ([id number]) [address] [place] [address] ABSOLUTE NEUTROPHIL 8.4 X10E9/L High 1.5-6.[address] [facility] Comment on above: Performed By: #### P INR, 97967-2 #### [facility] ([id number]) [address] [place] [address] 64069 Basophils/100 WBC (Bld) 0.9 % Normal [facility] Comment on above: Performed By: #### P INR, 34864-9 #### [facility] ([id number]) [address] [place] [address] 41605 Eosinophils (Bld) [#/Vol] 0.3 10*3/uL Normal 0.0-0.4 [facility] Comment on above: Performed By: #### P INR, 14814-8 #### [facility] ([id number]) [address] [place] [address] 92550 Eosinophils/100 WBC (Bld) 2.9 % Normal [facility] Comment on above: Performed By: #### P INR, 63009-8 #### [facility] ([id number]) [address] [place] [address]3110 Erythrocyte distribution width (RBC) [Ratio] 16.2 % High 11.5-15.0 [facility] Comment on above: Performed By: #### P INR, 05425-5 #### [facility] ([id number]) [address] [place] [address] 85262 Hematocrit (Bld) [Volume fraction] 32.2 % Low 39-49 [facility] Comment on above: Performed By: #### P INR, 66724-1 #### [facility] ([id number]) [address] [place] [address]69 Hemoglobin (Bld) [Mass/Vol] 10.4 g/dL Low 13.0-17.0 [facility] Comment on above: Performed By: #### P INR, 73989-8 #### [facility] ([id number]) [address] [place] [address] 79048 Lymphocytes (Bld) [#/Vol] 2.0 10*3/uL Normal 1.0-3.5 [facility] Comment on above: Performed By: #### P INR, 29476-9 #### [facility] ([id number]) [address] [place] [address] 85664 Lymphocytes/100 WBC (Bld) 17.6 % Normal [facility] Comment on above: Performed By: #### P INR, 52122-1 #### [facility] ([id number]) [address] [place] [address] 54239 MCH (RBC) [Entitic mass] 27.7 pg Normal 27-34 [facility] Comment on above: Performed By: #### P INR, 74380-3 #### [facility] ([id number]) [address] [place] [address] 96541 MCHC (RBC) [Mass/Vol] 32.5 g/dL Normal 32-36 [facility] Comment on above: Performed By: #### P INR, 10774-2 #### [facility] ([id number]) [address] [place], [place] [address] 37952 MCV (RBC) [Entitic vol] 85 fL Normal 80-100 [facility] Comment on above: Performed By: #### P INR, 44510-0 #### [facility] ([id number]) [address] [place] [address] 65761 Monocytes (Bld) [#/Vol] 0.7 10*3/uL Normal 0-0.9 [facility] Comment on above: Performed By: #### P INR, 67733-7 #### [facility] ([id number]) [address] [place] [address] 66059 Monocytes/100 WBC (Bld) 6.0 % Normal [facility] Comment on above: Performed By: #### P INR, 05381-9 #### [facility] ([id number]) [address] [place] [address] 98681 Neutrophils/100 WBC (Bld) 72.6 % Normal [facility] Comment on above: Performed By: #### P INR, 26837-2 #### [facility] ([id number]) [address] [place] [address] 91412 Platelet mean volume (Bld) [Entitic vol] 6.5 fL Low 7-12 [facility] Comment on above: Performed By: #### P INR, 19371-4 #### [facility] ([id number]) [address] [place] [address] 04796 Platelets (Bld) [#/Vol] 320 10*3/uL Normal 150-450 [facility] Comment on above: Performed By: #### P INR, 90765-2 #### [facility] ([id number]) [address] [place] [address] 61301 RBC COUNT 3.76 X10E12/L Low 4.10-5.70 [facility] Comment on above: Performed By: #### P INR, 32528-9 #### [facility] ([id number]) [address] [place] [address] 24241 WBC (Bld) [#/Vol] 11.5 10*3/uL High 4.0-11.0 [facility] Comment on above: Performed By: #### P INR, 53627-3 #### [facility] ([id number]) [address] [place] [address] 07777 COMPREHENSIVE METABOLIC PANE John 05-26-2024 Albumin [Mass/Vol] 3.0 g/dL Low 3.2-5.3 [facility] Comment on above: Performed By: #### P INR, 49789-0 #### [facility] ([id number]) [address] [place] [address] 75874 ALP [Catalytic activity/Vol] 105 U/L Normal 39-130 [facility] Comment on above: Performed By: #### P INR, 47208-6 #### [facility] ([id number]) [address] [place] [address] 30253 ALT [Catalytic activity/Vol] 45 U/L High 0-40 [facility] Comment on above: Performed By: #### P INR, 86479-4 #### [facility] ([id number]) [address] [place] [address] 52738 Anion gap [Moles/Vol] 7 mmol/L Normal 5-15 [facility] Comment on above: Performed By: #### P INR, 15703-0 #### [facility] ([id number]) [address] [place] [address] 47177 AST [Catalytic activity/Vol] 30 U/L Normal 0-41 [facility] Comment on above: Performed By: #### P INR, 79559-0 #### [facility] ([id number]) [address] [place] [address] 07552 Bilirubin [Mass/Vol] 1.1 mg/dL Normal 0.3-1.2 [facility] Comment on above: Result Comment: RESU LTS QUESTIONABLE DUE TO HEMOLYSIS Performed By: #### P INR, 90011-3 #### [facility] ([id number]) [address] [place] [address] 03205 Calcium [Mass/Vol] 8.6 mg/dL Normal 8.5-10.5 [facility] Comment on above: Performed By: #### P INR, 76573-5 #### [facility] ([id number]) [address] [place] [address] 48207 Chloride [Moles/Vol] 103 mmol/L Normal 98-109 [facility] Comment on above: Performed By: #### P INR, 91810-9 #### [facility] ([id number]) [address] [place] [address] 97813 CO2 [Moles/Vol] 26 mmol/L Normal 22-32 [facility] Comment on above: Performed By: #### P INR, 76724-5 #### [facility] ([id number]) [address] [place] [address] 57519 Creatinine [Mass/Vol] 0.78 mg/dL Normal 0.70-1.20 [facility] Comment on above: Result Comment: METH OD TRACEABLE TO IDMS STANDARD Performed By: #### P INR, 12893-4 #### [facility] ([id number]) [address] [place] [address] 22186 eGFR (CKD-EPI) NON-RACE DEPENDENT >90 Normal >59 [facility] Comment on above: Result Comment: Reported eGFR is based on the CKD-EPI 2020 equation that does not use a race coefficient. Performed By: #### P INR, 93373-0 #### [facility] ([id number]) [address] [place] [address] 04822 Glucose [Mass/Vol] 108 mg/dL High 65-99 [facility] Comment on above: Performed By: #### P INR, 20809-6 #### [facility] ([id number]) [address] [place] [address] 23011 Potassium [Moles/Vol] 4.4 mmol/L Normal 3.5-5.0 [facility] Comment on above: Result Comment: SPEC IMEN HEMOLYZED, RESULTS INCREASED Performed By: #### P INR, 77941-1 #### [facility] ([id number]) [address] [place] [address] 74564 Protein [Mass/Vol] 6.5 g/dL Normal 6.0-8.0 [facility] Comment on above: Performed By: #### P INR, 72667-4 #### [facility] ([id number]) [address] [place] [address] 32817 Sodium [Moles/Vol] 136 mmol/L Normal 134-146 [facility] [place] Comment on above: Performed By: #### P INR, 88608-4 #### [facility] ([id number]) [address] [place] [address] 21107 Urea nitrogen [Mass/Vol] 15 mg/dL Normal 5-27 [facility] Comment on above: Performed By: #### P INR, 32683-2 #### [facility] ([id number]) [address] [place] [address] 40123 MAGNESIUMon 05-26-2024 Magnesium [Mass/Vol] 2.0 mg/dL Normal 1.8-2.6 [facility] Comment on above: Performed By: #### P INR, 67388-1 #### [facility] ([id number]) [address] [place] [address] 34423 CBC AND AUTO DIFFon 05-25-20 24 ABSOLUTE BASOPHIL 0.1 X10E9/L Normal 0.0-0.2 [facility] Comment on above: Performed By: #### C BCA, 00411-6, CMP, 09826-4, 1988-03, 18947- 0 #### [facility] ([id number]) [address] [place] [address] 13639 #### FEPR #### [facility] ([id number]) [address], [address] [place] [address] ABSOLUTE NEUTROPHIL 7.6 X10E9/L High 1.5-6.[address] [facility] Comment on above: Performed By: #### C BCA, 81928-2, CMP, 49740-5, 1988-03, 60870- 0 #### [facility] ([id number]) [address] [place] [address] 03945 #### FEPR #### [facility] ([id number]) [address] [facility], [address] [place] [address] Basophils/100 WBC (Bld) 0.6 % Normal [facility] Comment on above: Performed By: #### C AMARILYS, 41426-4, CMP, 75682-0, 1988-03, 74827- 0 #### [facility] ([id number]) [address] [place] [address] 167[address] #### FEPR #### [facility] ([id number]) [address], [address] [place] [address] Eosinophils (Bld) [#/Vol] 0.2 10*3/uL Normal 0.0-0.4 [facility] Comment on above: Performed By: #### C AMARILYS, 61611-7, CMP, 84002-0, 1988-03, 96493- 0 #### [facility] ([id number]) [address] [place] [address] 57945 #### FEPR #### [facility] ([id number]) [address], [address] [place] [address] Eosinophils/100 WBC (Bld) 1.7 % Normal [facility] Comment on above: Performed By: #### C AMARILYS, 24751-2, CMP, 86867-7, 1988-03, 12996- 0 #### [facility] ([id number]) [address] [place] [address] 73196 #### FEPR #### [facility] ([id number]) [address], [address] [place] [address] Erythrocyte distribution width (RBC) [Ratio] 16.1 % High 11.5-15.0 [facility] Comment on above: Performed By: #### C AMARILYS, 36846-7, CMP, 64903-3, 1988-03, 96058- 0 #### [facility] ([id number]) [address] [place] [address] 70543 #### FEPR #### [facility] ([id number]) [address], [address] [place] [address] Hematocrit (Bld) [Volume fraction] 32.8 % Low 39-49 [facility] Comment on above: Performed By: #### C BCA, 22995-0, CMP, 24155-3, 1988-03, 53586- 0 #### [facility] ([id number]) [address] [place] [address] 28806 #### FEPR #### [facility] ([id number]) [address], [address] [place] [address] Hemoglobin (Bld) [Mass/Vol] 10.7 g/dL Low 13.0-17.0 [facility] Comment on above: Performed By: #### C BCA, 42939-5, CMP, 88104-5, 1988-03, 10720- 0 #### [facility] ([id number]) [address] [place] [address] 33198 #### FEPR #### [facility] ([id number]) [address], [address] [place] [address] Lymphocytes (Bld) [#/Vol] 1.4 10*3/uL Normal 1.0-3.5 [facility] Comment on above: Performed By: #### C BCA, 16307-6, CMP, 04257-5, 1988-03, 80225- 0 #### [facility] ([id number]) [address] [place] [address] 30411 #### FEPR #### [facility] ([id number]) [address], [address] [place] [address] Lymphocytes/100 WBC (Bld) 14.0 % Normal [facility] Comment on above: Performed By: #### C BCA, 41971-6, CMP, 73575-7, 1988-03, 04966- 0 #### [facility] ([id number]) [address] [place] [address] 77770 #### FEPR #### [facility] ([id number]) [address], [address] [place] [address] MCH (RBC) [Entitic mass] 27.9 pg Normal 27-34 [facility] Comment on above: Performed By: #### C AMARILYS, 55880-3, CMP, 77947-2, 1988-03, 69423 0 #### [facility] ([id number]) [address] [place] [address] 03052 #### FEPR #### [facility] ([id number]) [address] [facility], [address] [place] [address] MCHC (RBC) [Mass/Vol] 32.6 g/dL Normal 32-36 [facility] Comment on above: Performed By: #### C AMARILYS, 80820-1, CMP, 43357-4, 1988-03, 01245 0 #### [facility] ([id number]) [address] [place] [address] 07937 #### FEPR #### [facility] ([id number]) [address], [address] [place] [address] MCV (RBC) [Entitic vol] 85 fL Normal 80-100 [facility] Comment on above: Performed By: #### C AMARILYS, 01342-9, CMP, 74448-4, 1988-03, 52318 0 #### [facility] ([id number]) [address] [place] [address] 83380 #### FEPR #### [facility] ([id number]) [address], [address] [place] [address] Monocytes (Bld) [#/Vol] 0.7 10*3/uL Normal 0-0.9 [facility] Comment on above: Performed By: #### C BCA, 80842-9, CMP, 35629-6, 1988-03, 22608- 0 #### [facility] ([id number]) [address] [place] [address] 53774 #### FEPR #### [facility] ([id number]) [address], [address] [place] [address] Monocytes/100 WBC (Bld) 7.0 % Normal [facility] Comment on above: Performed By: #### C BCA, 87815-6, CMP, 25783-4, 1988-03, 21984- 0 #### [facility] ([id number]) [address] [place] [address] 17757 #### FEPR #### [facility] ([id number]) [address] [facility] [facility] [address], [address] [place] [address] Neutrophils/100 WBC (Bld) 76.7 % Normal [facility] Comment on above: Performed By: #### C BCA, 79368-4, CMP, 28608-6, 1988-03, 67740- 0 #### [facility] ([id number]) [address] [place] [address] 32638 #### FEPR #### [facility] ([id number]) [address], [address] [place] [address] Platelet mean volume (Bld) [Entitic vol] 6.0 fL Low 7-12 [facility] Comment on above: Performed By: #### C BCA, 70441-9, CMP, 93406-2, 1988-03, 70555- 0 #### [facility] ([id number]) [address] [place] [address] 59935 #### FEPR #### [facility] ([id number]) [address], [address] [place] [address] Platelets (Bld) [#/Vol] 325 10*3/uL Normal 150-450 [facility] Comment on above: Performed By: #### C BCA, 79458-3, CMP, 34560-4, 1988-03, 13454- 0 #### [facility] ([id number]) [address] [place] [address] 69131 #### FEPR #### [facility] ([id number]) [address] [facility], [address] [place] [address] RBC COUNT 3.84 X10E12/L Low 4.10-5.70 [facility] Comment on above: Performed By: #### C BCA, 72425-6, CMP, 65139-3, 1988-03, 70127- 0 #### [facility] ([id number]) [address] [place] [address] 23720 #### FEPR #### [facility] ([id number]) [address], [address] [place] [address] WBC (Bld) [#/Vol] 9.9 10*3/uL Normal 4.0-11.0 [facility] Comment on above: Performed By: #### C BCA, 27007-4, CMP, 38610-7, 1988-03, 56302- 0 #### [facility] ([id number]) [address] [place] [address] 27396 #### FEPR #### [facility] ([id number]) [address] [facility], [address] [place] [address] COMPREHENSIVE METABOLIC PANE John 05-25-2024 Albumin [Mass/Vol] 3.2 g/dL Normal 3.2-5.3 [facility] Comment on above: Performed By: #### C BCA, 08609-0, CMP, 68462-6, 1988-03, 49793- 0 #### [facility] ([id number]) [address] [place] [address] 29612 #### FEPR #### [facility] ([id number]) [address] [facility], [address] [place] [address] ALP [Catalytic activity/Vol] 110 U/L Normal 39-130 [facility] Comment on above: Performed By: #### C BCA, 37986-7, CMP, 17181-2, 1988-03, 75779- 0 #### [facility] ([id number]) [address] [place] [address] 61873 #### FEPR #### [facility] ([id number]) [address] [facility], [address] [place] [address] ALT [Catalytic activity/Vol] 48 U/L High 0-40 [facility] Comment on above: Performed By: #### C BCA, 01751-1, CMP, 31538-1, 1988-03, 44759- 0 #### [facility] ([id number]) [address] [place] [address] 19880 #### FEPR #### [facility] ([id number]) [address] [facility], [address] [place] [address] Anion gap [Moles/Vol] 4 mmol/L Low 5-15 [facility] Comment on above: Performed By: #### C BCA, 58071-0, CMP, 31863-8, 1988-03, 55501- 0 #### [facility] ([id number]) [address] [place] [address] 31139 #### FEPR #### [facility] ([id number]) [address] [facility], [address] [place] [address] AST [Catalytic activity/Vol] 28 U/L Normal 0-41 [facility] Comment on above: Performed By: #### C BCA, 44972-3, CMP, 09457-4, 1988-03, 52124- 0 #### [facility] ([id number]) [address] [place] [address] 17914 #### FEPR #### [facility] ([id number]) [address], [address] [place] [address] Bilirubin [Mass/Vol] 0.6 mg/dL Normal 0.3-1.2 [facility] Comment on above: Performed By: #### C BCA, 76749-1, CMP, 10967-0, 1988-03, 84710- 0 #### [facility] ([id number]) [address] [place] [address] 28229 #### FEPR #### [facility] ([id number]) [address], [address] [place] [address] Calcium [Mass/Vol] 8.6 mg/dL Normal 8.5-10.5 [facility] Comment on above: Performed By: #### C BCA, 60565-2, CMP, 29739-0, 1988-03, 34788- 0 #### [facility] ([id number]) [address] [place] [address] 84622 #### FEPR #### [facility] ([id number]) [address], [address] [place] [address] Chloride [Moles/Vol] 106 mmol/L Normal 98-109 [facility] Comment on above: Performed By: #### C BCA, 16884-0, CMP, 38644-4, 1988-03, 93740- 0 #### [facility] ([id number]) [address] [place] [address] 07664 #### FEPR #### [facility] ([id number]) [address], [address] [place] [address] CO2 [Moles/Vol] 26 mmol/L Normal 22-32 [facility] Comment on above: Performed By: #### C BCA, 17320-0, CMP, 49415-9, 1988-03, 71712- 0 #### [facility] ([id number]) [address] [place] [address] 07579 #### FEPR #### [facility] ([id number]) [address], [address] [place] [address] Creatinine [Mass/Vol] 0.96 mg/dL Normal 0.70-1.20 [facility] Comment on above: Result Comment: METH OD TRACEABLE TO IDMS STANDARD Performed By: #### C BCA, 13903-7, CMP, 06578-0, 1988-03, 61604-4 #### [facility] ([id number]) [address] [place] [address] 13926 #### FEPR #### [facility] ([id number]) [address], [address] [place] [address] GFR/1.73 sq M.predicted among non-blacks MDRD (S/P/Bld) [Vol rate/Area] 84 mL/min/{1.73_m2} Normal >59 [facility] Comment on above: Result Comment: Reported eGFR is based on the CKD-EPI 2020 equation that does not use a race coefficient. Performed By: #### C BCA, 36562-3, CMP, 65256-2, 1988-03, 23906-5 #### [facility] ([id number]) [address] [place] [address] 57626 #### FEPR #### [facility] ([id number]) [address], [address] [place] [address] Glucose [Mass/Vol] 118 mg/dL High 65-99 [facility] Comment on above: Performed By: #### C BCA, 48865-3, CMP, 29551-7, 1988-03, 18105- 0 #### [facility] ([id number]) [address] [place] [address] 52308 #### FEPR #### [facility] ([id number]) [address], [address] [place] [address] Potassium [Moles/Vol] 4.1 mmol/L Normal 3.5-5.0 [facility] Comment on above: Performed By: #### C BCA, 95071-3, CMP, 41075-3, 1988-03, 13635- 0 #### [facility] ([id number]) [address] [place] [address] 74637 #### FEPR #### [facility] ([id number]) [address], [address] [place] [address] Protein [Mass/Vol] 7.0 g/dL Normal 6.0-8.0 [facility] Comment on above: Performed By: #### C BCA, 70662-8, CMP, 02823-8, 1988-03, 49016 0 #### [facility] ([id number]) [address] [place] [address] 74245 #### FEPR #### [facility] ([id number]) [address] [place] [address] Sodium [Moles/Vol] 136 mmol/L Normal 134-146 [facility] Comment on above: Performed By: #### C BCA, 44488-0, CMP, 06239-8, 1988-03, 05426- 0 #### [facility] ([id number]) [address] [place] [address] 63695 #### FEPR #### [facility] ([id number]) [address] [place] [address] Urea nitrogen [Mass/Vol] 17 mg/dL Normal 5-27 [facility] Comment on above: Performed By: #### C BCA, 48876-7, CMP, 31030-2, 1988-03, 19514- 0 #### [facility] ([id number]) [address] [place] [address] #### FEPR #### [facility] ([id number]) [address], [address] [place] [address] CRP [Mass/Vol]on 05-25-2024 C REACTIVE PROTEIN 6.2 mg/dL High 0.000-0.744 [facility] Comment on above: Performed By: #### C BCA, 98956-0, CMP, 50836-0, 1988-03, 46070- 0 #### [facility] ([id number]) [address] [place] [address] #### FEPR #### [facility] ([id number]) [address] [place] [address] CT CTA CHESTon 05-25-2024 CT CTA CHEST [...] Mccrary MD on 05/25/2024 8:46 PM Normal [facility] Fibrin D-dimer DDU (PPP) [Ma ss/Vol]on 05-25-2024 D DIMER 3483 ng/mL DDU High <255 [facility] Comment on above: Result Comment: Results >=255ng/mL [...] D-Dimer level. Performed By: #### C BCA, 73609-9, CMP, 22410-3, 1988-5, 01716-9 #### [facility] ([id number]) [address] [place] [address] 18020 #### FEPR #### [facility] ([id number]) [address] [facility], [address] [place] [address] IRON PROFILEon 05-25-2024 Iron [Mass/Vol] 34 ug/dL Low 50-212 [facility] Comment on above: Performed By: #### P INR, 34526-3 #### [facility] ([id number]) [address] [place] [address] IRON BINDING 258 ug/dL Normal 250-425 [facility] Comment on above: Performed By: #### P INR, 51286-5 #### [facility] ([id number]) [address] [place] [address] 19117 IRON SATURATION 13 % SATURATION Low 20-[address] [facility] Comment on above: Performed By: #### P INR, 20230-3 #### [facility] ([id number]) [address] [place] [address] 21795 Natriuretic peptide B [Mass/ Vol]on 05-25-2024 Natriuretic peptide B (Bld) [Mass/Vol] 13 pg/mL Normal <100.0 [facility] Comment on above: Performed By: #### C BCA, 30892-7, CMP, 42215-0, 1988-5, 08633- 0 #### [facility] ([id number]) [address] [place] [address] #### FEPR #### [facility] ([id number]) [address] [place] [address], [address] [place] [address] Procalcitonin IA [Mass/Vol]o n 05-25-2024 PROCALCITONIN 0.07 ng/mL High <0.05 [facility] Comment on above: Result Comment: NOTE <0.50 ng/mL - Low risk of severe sepsis and/or septic shock. <2.00 ng/mL - Recommend retesting within 6-24 hours. >2.00 ng/mL - High risk of sepsis and/or septic shock. Performed By: #### P INR, 69061-0 #### [facility] ([id number]) [address] [place] [address]242 URINALYSISon 05-25-2024 Bilirubin Ql (U) Negative Normal NEG [facility] Comment on above: Performed By: #### P INR, 93164-9 #### [facility] ([id number]) [address] [place] [address]663 BLOOD/HGB Trace Abnormal NEG [facility] Comment on above: Performed By: #### P INR, 52337-3 #### [facility] ([id number]) [address] [place] [address] 54396 Color (U) YELLOW Normal YELLOW [facility] Comment on above: Performed By: #### P INR, 19491-7 #### [facility] ([id number]) [address] [place] [address] 25535 Glucose Ql (U) Negative Normal NEG [facility] Comment on above: Performed By: #### P INR, 34560-7 #### [facility] ([id number]) [address] [place] [address] [place] [address] Hyaline casts LM Ql (Urine sed) 0 to 2 Normal 0-2 [facility] Comment on above: Performed By: #### P INR, 20009-4 #### [facility] ([id number]) [address] [place] [address] 21822 Ketones Ql (U) Negative Normal NEG [facility] Comment on above: Performed By: #### P INR, 54183-0 #### [facility] ([id number]) [address] [place] [address] [place] [address] Leukocyte esterase Test strip Ql (U) Negative Normal NEG [facility] Comment on above: Performed By: #### P INR, 96088-1 #### [facility] ([id number]) [address] [place] [address] [place] [address] MUCOUS PRESENT Abnormal NONE [facility] Comment on above: Performed By: #### P INR, 05092-5 #### [facility] ([id number]) [address] [place] [address] [place] [address] Nitrite Ql (U) Negative Normal NEG [facility] Comment on above: Performed By: #### P INR, 78008-0 #### [facility] ([id number]) [address] [place] [address] 79132 pH (U) 6.0 [pH] Normal 5.0-8.5 [facility] Comment on above: Performed By: #### P INR, 46137-1 #### [facility] ([id number]) [address] [place] [address] 01553 Protein Ql (U) Negative Normal NEG [facility] Comment on above: Performed By: #### P INR, 93167-2 #### [facility] ([id number]) [address] [place] [address] [place] [address] R.B.CELLS 2 to 5 Normal 0-5 [facility] Comment on above: Performed By: #### P INR, 85417-7 #### [facility] ([id number]) [address] [place] [address] 42536 Specific gravity (U) [Rel density] >1.030 Normal 1.003-1.035 [facility] Comment on above: Performed By: #### P INR, 14500-8 #### [facility] ([id number]) [address] [place] [address] 21317 TURBIDITY CLEAR Normal CLEAR [facility] Comment on above: Performed By: #### P INR, 58802-8 #### [facility] ([id number]) [address] [place] [address] 41259 Urobilinogen Qn (U) 0.2 {Christi'U}/dL Normal <1.1 [facility] Comment on above: Performed By: #### P INR, 09490-4 #### [facility] ([id number]) [address] [place] [address] W.B.CELLS 0 to 2 Normal 0-5 [facility] Comment on above: Performed By: #### P INR, 44286-2 #### [facility] ([id number]) [address] [place] [address] URINE CULTUREon 05-25-2024 Bacteria identified Cx Nom (U) CULTURE RESULTS NO GROWTH AT <1000 CFU/mL Normal [facility] Comment on above: Performed By: #### P INR, 19649-7 #### [facility] ([id number]) [address] [place] [address], [place] [address] URN MACROSCOPIC NURon 2023 BILIRUBIN ANIBAL Negative Normal NEG [facility] Comment on above: Performed By: #### P INR, 46208-2 #### [facility] ([id number]) [address] [place] [address], [place] [address] BLOOD/HGB ANIBAL Trace Abnormal NEG [facility] Comment on above: Performed By: #### P INR, 56463-0 #### [facility] ([id number]) [address] [place] [address], [place] [address] GLUCOSE ANIBAL Negative Normal NEG [facility] Comment on above: Performed By: #### P INR, 43755-8 #### [facility] ([id number]) [address] [place] [address], [place] [address] KETONES ANIBAL Negative Normal NEG [facility] Comment on above: Performed By: #### P INR, 59114-0 #### [facility] ([id number]) [address] [place] [address], [place] [address] LEUKOCYTE ESTERASE ANIBAL Negative Normal NEG [facility] Comment on above: Performed By: #### P INR, 69609-9 #### [facility] ([id number]) [address] [place] [address], [place] [address] NITRITE ANIBAL Negative Normal NEG [facility] Comment on above: Performed By: #### P INR, 99575-3 #### [facility] ([id number]) [address] [place] [address], [place] [address] PH ANIBAL 5.5 Normal 5.0-8.5 [facility] Comment on above: Performed By: #### P INR, 04265-2 #### [facility] ([id number]) [address] [place] [address] PROTEIN ANIBAL Negative Normal NEG [facility] Comment on above: Performed By: #### P INR, 95695-6 #### [facility] ([id number]) [address] [place] [address] SPECIFIC GRAVITY ANIBAL >=1.030 Normal 1.003-1.035 [facility] Comment on above: Performed By: #### P INR, 43029-5 #### [facility] ([id number]) [address] [place] [address] UROBILINOGEN ANIBAL 0.2 eu/dL Normal <1.1 [facility] Comment on above: Performed By: #### P INR, 21693-5 #### [facility] ([id number]) [address] [place] [address] XR TIBIA FIBULA RT MIN 2 VWS [...] Royce Peterson DO on 05/25/2024 8:40 PM [facility] 36on 05-24-2024 36 SPOKE WITH PATIENT SCHEDULE HIM TO COME IN TODAY TO SEE A RESIDENT CLERICAL AIDE. [facility] 36 Patient feels like jose white is developing cellulitis, wanting to be seen today, please give a call back with further instruction. Thank you [facility] Office Visiton 05-24-2024 Follow-up visit [id number] Royce Delaney 1950 Date Provider Department Center 05/24/2024 GRETEL SIU MP ORTHO MPOHO No family history on file Level of Service:21038 RI POSTOP FOLLOW UP VISIT RELATED TO ORIGINAL PX Reason for Visit and Comments: Post-op [483] Edema [[id number]] [facility] 3605-17-2024 36 I spoke with the patient to see how he is doing after his recent surgery. Mr Ugo stated he is doing well and his pain is manageable with medication. He is taking everything he was prescribed at discharge. He does state that he has some frustration with [facility] not being out to see him yet. I stated that per the note today they needed information from Dr Chappell. KENAN Hilton has sent this to them. I informed patient if he does not hear from [facility] today to let me know tomorrow. I provided him with my contact information. He denies any redness, drainage or major swelling. He has a post op appointment on May 31 at 1030. He had no questions or concerns. Addendum: I have asked RAD Lambert to assist with getting [facility] set up for patient. [facility] 36 Orders FAXED [facility] 36 Pino ramirez [phone] Fax: [phone] States it is urgent that the PT orders that was faxed to [facility] be signed and faxed back flor This is important for the insurance authorization [facility] Telephoneon 05-17-2024 Telephone [phone] Royce Delaney 1950 [facility] Provider Department Center 05/17/2024 CHIRAG STEINBERG MP ORTHO LENAHO No family history on file [facility] 3605-14-2024 36 karenmagali nubia will be faxing over a paper for dr chappell to sign for his home health care, states his insurance co requires a certain form/way for it to be written before they will accept it. States his first visit is today. FYI. [facility] Telephoneon 05-14-2024 Telephone [phone] Royce Delaney 1950 M Date Provider Department Center 05/14/2024 GRETEL SIU ORTHO MPORTHO No family history on file Reason for Visit and Comments: home health care [Other] Normal [facility] BASIC METABOLIC PANELon 06-2 Anion gap [Moles/Vol] 12 mmol/L Normal 7-20 [facility] Comment on above: Performed By: #### L [id number] #### [facility] ([facility]) [address] [place] [address] Calcium [Mass/Vol] 8.4 mg/dL Low 8.6-10.3 [facility] Comment on above: Performed By: #### L [id number] #### [facility] ([facility]) [address] [place] [address] Chloride [Moles/Vol] 106 mmol/L Normal 98-107 [facility] Comment on above: Performed By: #### L [id number] #### [facility] ([facility]) [address] [place] [address] CO2 [Moles/Vol] 24 mmol/L Normal 21-31 [facility] Comment on above: Performed By: #### L [id number] #### [facility] ([facility]) [address] [place] [address] Creatinine [Mass/Vol] 0.82 mg/dL Normal 0.70-1.30 [facility] Comment on above: Performed By: #### L [id number] #### [facility] ([facility]) [address] [place] [address] GLOMERULAR FILTRATION RATE ML/MIN/1.73 SQ M.PREDICTED 93.3 mL/min/1.73m*2 Normal >60.0 [facility] Comment on above: Result Comment: [facility]???s estimated glomerular filtration rate (eGFR) will [...] individuals. Performed By: #### L [id number] #### [facility] ([facility]) [address] [place] [address] Glucose [Mass/Vol] 130 mg/dL High 70-100 [facility] Comment on above: Performed By: #### L [id number] #### [facility] ([facility]) [address] [place] [address] Potassium [Moles/Vol] 4.1 mmol/L Normal 3.5-5.1 [facility] Comment on above: Performed By: #### L [id number] #### [facility] ([facility]) [address] [place] [address] Sodium [Moles/Vol] 138 mmol/L Normal 136-145 [facility] Comment on above: Performed By: #### L [id number] #### [facility] ([facility]) [address] [place] [address] Urea nitrogen [Mass/Vol] 18 mg/dL Normal 7-25 [facility] Comment on above: Performed By: #### L [id number] #### [facility] ([facility]) [address] [place] [address] UREA NITROGEN/CREATININE (MASS RATIO) IN SER/PLAS 22.0 Normal [facility] Comment on above: Performed By: #### L [id number] #### [facility] ([facility]) [address] [place] [address] CBCon 05-13-2024 Erythrocyte distribution width (RBC) [Ratio] 15.8 % High 11.5-15.0 [facility] Comment on above: Performed By: #### L [id number] #### [facility] ([facility]) [address] [place] [address] ERYTHROCYTE MEAN CORPUSCULAR HEMOGLOBIN CONCENTRATION (G/DL) BY AUTOMATED 31.8 g/dL Low 32.0-35.0 [facility] Comment on above: Performed By: #### L [id number] #### [facility] ([facility]) [address] [place] [address] Hematocrit (Bld) [Volume fraction] 36.2 % Low 39.0-55.0 [facility] Comment on above: Performed By: #### L [id number] #### [facility] ([facility]) [address] [place] [address] Hemoglobin (Bld) [Mass/Vol] 11.5 g/dL Low 13.0-17.0 [facility] Comment on above: Performed By: #### L [id number] #### [facility] ([facility]) [address] [place] [address] MCH (RBC) [Entitic mass] 27.8 pg Normal 27.0-33.0 [facility] Comment on above: Performed By: #### L [id number] #### [facility] ([facility]) [address] [place] [address] MCV (RBC) [Entitic vol] 87.4 fL Normal 82.0-98.0 [facility] Comment on above: Performed By: #### L [id number] #### [facility] ([facility]) [address] [place] [address] PLATELETS (10*3/UL) IN BLOOD AUTOMATED COUNT 219 10*3/uL Normal 150-400 [facility] Comment on above: Performed By: #### L [id number] #### [facility] ([facility]) [address] [place] [address] RBC (Bld) [#/Vol] 4.14 10*6/uL Low 4.20-5.70 [facility] Comment on above: Performed By: #### L [id number] #### [facility] ([facility]) [address] [place] [address] WBC (Bld) [#/Vol] 13.23 10*3/uL High 4.00-10.60 [facility] Comment on above: Performed By: #### L [id number] #### [facility] ([facility]) [address] [place] [address] DSon 05-13-2024 DS Admission Admitted 05/12/2024 for [...] 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 Discharge Disposition Home-Health Care [facility] () Discharge Medications Your medication list START [...] Medications These medications were sent to [facility] - [place], [place] - [address], [facility] [address] aspirin 325 mg tablet cephalexin 500 mg [...] is performed under the ED CLIA certificate #[id number]. BODY FLUID CULTURE AND ANAEROBIC CULTURE Narrative: The following orders were created for panel order Body fluid culture and anaerobic culture. Procedure Abnormality Status --------- ------ Body fluid culture[[id number]] (more content not included)... 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, initial encounter ([facility]) [T84.032A]Differential performed on cytospin Performed By: #### L [id number] ####[facility] ([facility])[address] [facility] [place] [address] CELLS COUNTED TOTAL (#) IN BODY FLUID 100 Normal [facility] Comment on above: Order Comment: 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, initial encounter ([facility]) [T84.032A]Differential performed on cytospin Performed By: #### L [id number] ####[facility] ([facility])[address] [place] [address] EOSINOPHILS TOTAL PER COUNTED LEUKOCYTES IN BODY FLUID BY MANUAL COUNT [facility] Comment on above: Order Comment: 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, initial encounter ([facility]) [T84.032A]Differential performed on cytospin Performed By: #### L [id number] ####[facility] ([facility])[address] [place] [address] LYMPHOCYTES TOTAL PER COUNTED LEUKOCYTES IN BODY FLUID BY MANUAL COUNT 24 Normal [facility] Comment on above: Order Comment: 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, initial encounter ([facility]) [T84.032A]Differential performed on cytospin Performed By: #### L [id number] ####[facility] ([facility])[address] [place] [address] MESOTHELIAL CELLS TOTAL PER COUNTED LEUKOCYTES IN BODY FLUID BY MANUAL COUN Normal [facility] Comment on above: Order Comment: 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, initial encounter ([facility]) [T84.032A]Differential performed on cytospin Performed By: #### L [id number] ####[facility] ([facility])[address] [facility] [place] [address] MONOCYTES+MACROPHAG ES TOTAL PER COUNTED LEUKOCYTES IN BODY FLUID BY MANUAL 58 Normal [facility] Comment on above: Order Comment: 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, initial encounter ([facility]) [T84.032A]Differential performed on cytospin Performed By: #### L [id number] ####[facility] ([facility])[address] [place] [address] NEUTROPHILS TOTAL PER COUNTED LEUKOCYTES IN BODY FLUID BY MANUAL COUNT 18 [facility] Comment on above: Order Comment: 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, initial encounter ([facility]) [T84.032A]Differential performed on cytospin Performed By: #### L [id number] ####[facility] ([facility])[address] [place] [place] [address] OTHER CELLS BODY FLUID (MANUAL) [facility] Comment on above: Order Comment: 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, initial encounter ([facility]) [T84.032A]Differential performed on cytospin Performed By: #### L [id number] ####[facility] ([facility])[address] [facility] [place] [address] BODY FLUID CULTUREon 024 Bacteria identified Cx Nom (Unsp spec) No growth at 5 days Normal [facility] Comment on above: Order Comment: 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, initial encounter ([facility]) [T84.032A] Performed By: #### L [id number] ####[facility] ([facility])[address] [place] [address] GRAM STAIN RESULT Normal [facility] Comment on above: Order Comment: 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, initial encounter ([facility]) [T84.032A] Result Comment: Poly morphonuclear leukocytes No organisms seen Cytocentrifuge sample Performed By: #### L [id number] ####[facility] ([facility])[address] [place] [address] HISTOLOGY - TISSUE EXAMon LAB AP CASE REPORT Normal [facility] Comment on above: Order Comment: 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, initial encounter ([facility]) [T84.032A] Result Comment: Surg ical Pathology Case: [id number] Authorizing Provider: Gretel Chappell MD Collected: 05/12/2024 1150 Ordering Location: [facility] Main Operating Room Received: 05/12/2024 1303 Pathologist: Aixa Hunter MD Intraop: Aixa Hunter MD Specimens: A) - Knee, rt knee synovium B) - Femur, #2 RT Femur tissue C) - Patella, #4;patella tissue D) - Tibia, #5 Rt Tibia E) - Knee, #3; RT knee posterior capsule F) - Tibia, Rt Tibia micro Performed By: #### L [id number] ####[facility] ([facility] [place] [address] LAB AP CLINICAL INFORMATION Normal [facility] Comment on above: Order Comment: 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 Knee. 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 Striping Machine Operator sections are submitted for frozen section, FS1. The cut surfaces are generally uniform. Additional sections are submitted in 2 and 3. Kathi Davis Pathologists' Senior Logistics Manager B. Femur. Received fresh for frozen section labeled Royce Delaney, #2 RT Femur tissue are pale manley to pink-red rubbery, dull and shaggy soft tissue fragments, 3.3 x 2 x 1.8 cm with minute focal bony fragments up to 0.3 cm. Striping Machine Operator portions of soft tissue are submitted for frozen section, FS1. Additional sections of soft tissue are submitted in 2 and the bony fragments are submitted in 3 after decalcification. Anna Cramer' Senior Logistics Manager C. Patella. Received fresh for frozen section labeled Royce Delaney, #4;patella tissue is feliz pink shaggy rubbery soft tissue 4.2 x 3.5 x 1.8 cm. Striping Machine Operator sections are submitted for frozen section, FS1. Additional sections are submitted in 2 and 3. Anna Cramer' Senior Logistics Manager D. Tibia. Received fresh for frozen section labeled Royce Delaney, #5 Rt Tibia are fragments of dull manley soft and pink-feliz rubbery tissue, 1.5 x 2 x 0.8 cm, with intermixed bony fragments. Striping Machine Operator soft tissue is submitted for frozen section, FS1. The remainder of the soft tissue is submitted in 2 and the bony fragments are entirely submitted in 3 after decalcification. Anna Cramer' Senior Logistics Manager E. Knee. Received fresh for frozen section labeled Royce Delaney, #3; RT knee posterior capsule is a portion of feliz pink rubbery tissue 3.8 x 1.2 x 1 cm. The cut surfaces are uniform. Striping Machine Operator sections are submitted for frozen, FS1. The remainder is submitted in 2 and 3. Anna Cramer' Senior Logistics Manager F. Tibia. Received in formalin labeled Royce Delaney, Rt Tibia micro are ragged fragments of feliz bone and pale manley to dark blue-manley rubbery and shaggy soft tissue. Striping Machine Operator sections of the soft tissue are submitted in cassettes 1-2 with bony fragments in 3 after decalcification. Kathi Davis, Pathologists' Senior Logistics Manager Performed By: #### L [id number] ####[facility] ([facility])[address] [place] [address] LAB AP INTRAOPERATIVE CONSULTATION A. Knee. 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 Soft tissue, right knee synovium, biopsy: - No increase in neutrophils (0-1 neutrophils per HPF). - One frozen section completed. Intraoperative Consultation by: Aiax Hunter MD B. Femur. Resulted 1:25 PM [...] Aixa Hunter MD Performed By: #### L [id number] ####[facility] ([facility])[address] [place] [address] LAB AP MICROSCOPIC DESCRIPTION Microscopic examination performed. 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 S oft tissue, [...] per high-power field). Performed By: #### L [id number] ####[facility] ([facility])[address] [place] [address] HPon 05-12-2024 HP H&P reviewed. The patient was examined and there are no changes to the H&P. Normal [facility] MRSA/MSSA DNA NASALon 2023 MRSA DNA Negative Normal Negative [facility] Comment on above: Order Comment: Testi [...] preclude nasal colonization. Performed By: #### L [id number] #### [facility] ([facility]) [address] [place] [address] MSSA DNA Positive Abnormal Negative [facility] Comment on above: Order Comment: Testi [...] preclude nasal colonization. Performed By: #### L [id number] #### [facility] ([facility]) [address] [place] [address] NURSNOTEon 05-12-2024 PORFIRIO Called son and told him the room assignment Normal [facility] NURSNOTE Xray at bedside Normal [facility] PORFIRIO Aris Ohara, took prescriptions home [facility] OPNOTEon 05-12-2024 OPNOTE REVISION, TOTAL ARTHROPLASTY, KNEE,STAGE 2, EXCEPT PATELLA WITH INTRAOP FROZEN SECTIONS (R) Operative Note Date: 05/12/2024 Location: [facility] OR Name: Royce Delaney, : 1950, Diagnosis Pre-op Diagnosis * Mechanical loosening of internal right knee prosthetic joint, initial encounter ([facility]) [T84.032A] Post-op Diagnosis * Mechanical loosening of internal right knee prosthetic joint, initial encounter ([facility]) [T84.032A] * Instability of internal right knee prosthesis, initial encounter ([facility]) [T84.022A] * 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 RI INJECTION AA&/STRD FEMORAL NERVE W/IMG GDN [06099] Hardware used: [employer]ong [employer]hew Legion revision tibial baseplate right side size 5. [employer]hew Legion RK/HK Gerson stepped left medial/right lateral, tibial wedge augment 5 mm, size 5-6 [employer] Legion RK/HK him he stepped, left lateral/right medial, tibial wedge augment 5 mm, size 5-6. [employer]hew Legion 2 mm Legion offset zmt operator [employer] Legion tibial cone size long. [employer] Legion constrained Oxinium femoral component measuring size 7 right side. [employer] Legion 4 mm offset zmt operator [employer] Legion distal femoral wedge [...] CULTURE Gretel Chappell MD 05/12/24 1146 Routine [id number], [id number], [id number] Description: rt knee fluid 2 Bone Marrow Aspirate Bone Marrow AFB CULTURE, BLOOD Gretel Chappell MD 05/12/24 1453 [id number] Description: Bone Marrow A Knee Synovium HISTOLOGY - TISSUE EXAM Gretel Chappell MD 05/12/24 1150 Yes Routine [id number] Description: rt knee synovium Comment: # of neutrophils per high powered field B Femur Tissue HISTOLOGY - TISSUE EXAM Gretel Chappell MD 05/12/24 1203 Yes [id number] Description: #2 RT Femur tissue C Patella Tissue HISTOLOGY - TISSUE EXAM Gretel Chappell MD 05/12/24 1216 Yes [id number] Description: #4;patella tissue D Tibia Tissue HISTOLOGY - TISSUE EXAM Gretel Chappell MD 05/12/24 1218 Yes [id number] Description: #5 Rt Tibia E Knee Tissue HISTOLOGY - TISSUE EXAM Gretel Chappell MD 05/12/24 1221 Yes [id number] Description: #3; RT knee posterior capsule F Tibia Tissue HISTOLOGY - TISSUE EXAM Gretel Chappell MD 05/12/24 1223 No [id number] Description: Rt Tibia micro G Bone Marrow Aspirate Bone Marrow BONE MARROW EXAM Gretel Chappell MD 05/12/24 1224 Description: Bone Marrow Implants Type Name Action Serial No. Bone Cement CEMENT,BONE,R,1X40US - [id number] - [id number] Implanted [id number] TIBIAL BASEPLATE Implanted TIBIAL WEDGE Implanted TIBIAL WEDGE Implanted OFF[employer]ANNING COUNSELOR Implanted TIBIAL CONE Implanted PRESSFIT STEM Implanted FEMORAL COMPONENT Implanted OFF[employer] E[employer] PLANNING COUNSELOR Implanted FEMORAL WEDGE Implanted FEMORAL WEDGE Implanted PRESSFIT STEM Implanted ARTICULAR INSERT Implanted Staff: Spinning Lathe Operator: Lashae Lopez RN Relief Spinning Lathe Operator: Russell Alejandro RN Relief Scrub: Timothy Griffiths CSA; Alton Tian CST Scrub Person: Dorina Myrick CST Tape Fastener Machine Operator: Wilfredo Mendez CSA Indications: Royce Delaney is an 74 y.o. male who is having surgery for Mechanical loosening of internal ri (more content not included)... Normal [facility] PATHOLOGY REVIEWon 4 PATHOLOGY REVIEW Reviewed. Normal [facility] Comment on above: Order Comment: 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, initial encounter ([facility]) [T84.032A] Result Comment: Elec tronically signed by Ramon Lancaster MD on 05/13/24 at 9:21 AM. Performed By: #### L [id number] ####[facility] ([facility]AK[facility])[address] [place] [address] POCT GLUCOSE METER UNSOLICIT ED RESULTSon 05-12-2024 Glucose [Mass/Vol] 99 mg/dL Normal 70-105 [facility] Comment on above: Order Comment: Waive d Testing in the ED is performed under the ED CLIA certificate #[id number]. Result Comment: dhol as Performed By: #### L [id number] #### [facility] ([facility]) [address] [place] [address] TYPE AND SCREENon 05-12-2024 AB SCREEN Negative Normal [facility] Comment on above: Performed By: #### L [id number] #### [facility] , ABO group Nom (Bld) A Normal [facility] Comment on above: Performed By: #### L [id number] #### [facility] , RH TYPE IN BLOOD Positive Normal [facility] Comment on above: Performed By: #### L [id number] #### [facility] , URINALYSISon 05-10-2024 Bilirubin Ql (U) Negative Normal NEG [facility] Comment on above: Performed By: #### U A #### [facility] ([id number]) [address], [address] [place] [address] BLOOD/HGB Small Abnormal NEG [facility] Comment on above: Performed By: #### U A #### [facility] ([id number]) [address], [address] [place] [address] Color (U) YELLOW Normal YELLOW [facility] Comment on above: Performed By: #### U A #### [facility] ([id number]) [address] [place] [address], [address] [place] [address] Glucose Ql (U) Negative Normal NEG [facility] Comment on above: Performed By: #### U A #### [facility] ([id number]) [address] [place] [address], [address] [place] [address] Ketones Ql (U) Negative Normal NEG [facility] Comment on above: Performed By: #### U A #### [facility] ([id number]) [address] [place] [address], [address] [place] [address] Leukocyte esterase Test strip Ql (U) Negative Normal NEG [facility] Comment on above: Performed By: #### U A #### [facility] ([id number]) [address] [place] [address], [address] [place] [address] MUCOUS PRESENT Abnormal NONE [facility] Comment on above: Performed By: #### U A #### [facility] ([id number]) [address] [place] [address], [address] [place] [address] Nitrite Ql (U) Negative Normal NEG [facility] Comment on above: Performed By: #### U A #### [facility] ([id number]) [address] [place] [address], [address] [place] [address] pH (U) 5.5 [pH] Normal 5.0-8.5 [facility] Comment on above: Performed By: #### U A #### [facility] ([id number]) [address] [place] [address], [address] [place] [address] Protein Ql (U) Negative Normal NEG [facility] Comment on above: Performed By: #### U A #### [facility] ([id number]) [address] [place] [address], [address] [place] [address] R.B.CELLS 1 /hpf Normal 0-5 [facility] Comment on above: Performed By: #### U A #### [facility] ([id number]) [address], [address] [place] [address] Specific gravity (U) [Rel density] 1.026 Normal 1.003-1.035 [facility] Comment on above: Performed By: #### U A #### [facility] ([id number]) [address], [address] [place] [address] SQUAMOUS EPITHELIUM <1 Normal 0-5 [facility] Comment on above: Performed By: #### U A #### [facility] ([id number]) [address], [address] [place] [address] TURBIDITY CLEAR Normal CLEAR [facility] Comment on above: Performed By: #### U A #### [facility] ([id number]) [address], [address] [place] [address] Urobilinogen (U) [Mass/Vol] mg/dL Normal <1.1 [facility] Comment on above: Performed By: #### U A #### [facility] ([id number]) [address], [address] [place] [address] W.B.CELLS 1 /hpf Normal 0-5 [facility] Comment on above: Performed By: #### U A #### [facility] ([id number]) [address], [address] [place] [address] URINE CULTUREon 05-10-2024 Bacteria identified Cx Nom [...] F TRIMETH/SULFAMETHOXAZOL E S <=1/19 F Susceptible [facility] Comment on above: Performed By: #### 6 30-4 #### [facility] ([id number]) [address] [place] [address] MRSA PCR NASALon 05-04-2024 MRSA DNA QUINTIN+probe Ql (Unsp spec) Negative Normal NEG [facility] Comment on above: Performed By: #### 3 5492-8 #### [facility] ([id number]) [address] [place] [address] Orders Onlyon 05-04-2024 Orders Only [id number] Royce Delaney 1950 M Date Provider Department Center 05/04/2024 [id number], HISTORICAL [facility] [place] Medical C No family history on file Normal [facility] PROTIME AND INRon 05-04-2024 INR Coag (PPP) [Relative time] 1.2 {INR} High 0.8-1.1 [facility] Comment on above: Performed By: #### P INR, 83421-9 #### [facility] ([id number]) [address] [place] [address] PT Coag (PPP) [Time] 13.4 s High 9.8-13.2 [facility] Comment on above: Result Comment: NEW REFERENCE RANGE Performed By: #### P INR, 88291-6 #### [facility] ([id number]) [address] [place] [address] aPTT Coag (PPP) [Time]on aPTT Coag (Bld) [Time] 34 s Normal 26-37 [facility] Comment on above: Result Comment: NEW REFERENCE RANGE Performed By: #### P INR, 03006-9 #### [facility] ([id number]) [address] [place] [address] [place] [address] 36on 04-27-2024 36 Patient scheduled wi ll get blood work done closer to his house [facility] Prep for Procedureon 024 Prep for Procedure [id number] Royce Delaney 1950 M Date Provider Department Center 04/27/[address] [facility]THO No family history on file [facility] 36on 04-26-2024 36 Patient is calling b ack states he was returning a phone call but theres no documentation on who called him back. [facility] 36 Patient would like t o schedule his surgery for his knees, states his phone isn't working correctly he will probably miss the first call but will call right back. [facility] 36on 04-20-2024 36 Left voicemail to ca ll back and discuss. [facility] 36 Patient called and h as question re-guarding appointment yesterday, patient would like call back [phone] [facility] HPon 04-19-2024 Orthopedic Surgery Subjective New Patient [...] performed by Dr. Chico Sutton MD at [facility] 5 years ago on 14 July 2019. [...] S/p bilateral (more content not included)... Normal [facility] Office Visiton 04-19-2024 Follow-up visit [id number] Royce Delaney 1950 M Date Provider Department Center 04/19/2024 [facility] MP ORTHO MPORTHO No family history on file Level of Service:91593 RI OFFICE/OUTPATIENT NEW HIGH MDM 60 MINUTES (GC,57) Reason for Visit and Comments: New Patient [632] Pain [136] Normal [facility] Vital Signs Date Time Vital Sign Value Performing Clinician Facility 07-25-2025 10:09040 Body mass index (BMI) [Ratio] 51.25 kg/m2 Justino Gaspar MD Work Phone: [facility] 07-25-2025 10:09040 Body weight 171.46 kg [facility] 07-25-2025 10:09040 Diastolic blood pressure 72 mm[Hg] Justino Gaspar MD Work Phone: [facility] 07-25-2025 10:09040 Heart rate 80 /min Justino Gaspar MD Work Phone: [facility] 07-25-2025 10:09-0400 Respiratory rate 20 /min Justino Gaspar MD Work Phone: [facility] 07-25-2025 10:09-0400 SaO2% (BldA) [Mass fraction] 97 % Justino Gaspar MD Work Phone: [facility] 07-25-2025 10:09-0400 Systolic blood pressure 110 mm[Hg] Justino Gaspar MD Work Phone: [facility] 07-11-2025 11:01-0400 Body height 182.9 cm Jonathon Dahl DPM Work Phone: [facility] 07-11-2025 11:01-0400 Body mass index (BMI) [Ratio] 50.59 kg/m2 Jonathon Dahl DPM Work Phone: [facility] 07-11-2025 11:01-0400 Body weight 169.19 kg Jonathonoscar Dahl DPM Work Phone: [facility] 07-11-2025 09:26-0400 Body mass index (BMI) [Ratio] 50.58 kg/m2 Bo Michelle ENVIRONMENTAL RESEARCH PROJECT MANAGER-ESCALATOR OPERATOR Work Phone: [facility] 07-11-2025 09:26-0400 Body weight 169.19 kg Bo Merinoer ENVIRONMENTAL RESEARCH PROJECT MANAGER-ESCALATOR OPERATOR Work Phone: [facility] 07-11-2025 09:26-0400 Diastolic blood pressure 86 mm[Hg] Bo Michelle ENVIRONMENTAL RESEARCH PROJECT MANAGER-ESCALATOR OPERATOR Work Phone: [facility] 07-11-2025 09:26-0400 Heart rate 64 /min Bo Michelle ENVIRONMENTAL RESEARCH PROJECT MANAGER-ESCALATOR OPERATOR Work Phone: [facility] 07-11-2025 09:26-0400 Respiratory rate 20 /min Bo Michelle ENVIRONMENTAL RESEARCH PROJECT MANAGER-ESCALATOR OPERATOR Work Phone: [facility] 07-11-2025 09:26-0400 SaO2% (BldA) [Mass fraction] 99 % Bo Michelle ENVIRONMENTAL RESEARCH PROJECT MANAGER-ESCALATOR OPERATOR Work Phone: [facility] 07-11-2025 09:26-0400 Systolic blood pressure 130 mm[Hg] Bo Michelle ENVIRONMENTAL RESEARCH PROJECT MANAGER-ESCALATOR OPERATOR Work Phone: [facility] 06-16-2025 14:14-0400 Body height 182.9 cm Jonathon Dahl DPM Work Phone: [facility] 06-16-2025 14:14-0400 Body mass index (BMI) [Ratio] 48.82 kg/m2 Jonathon Dahl DPM Work Phone: [facility] 06-16-2025 14:14-0400 Body weight 163.29 kg Jonathon Dahl DPM Work Phone: [facility] 04-06-2025 08:23-0400 Body height 182.9 cm Jonathon Dahl DPM Work Phone: [facility] 04-06-2025 08:23-0400 Body mass index (BMI) [Ratio] 48.82 kg/m2 Jonathon Dahl DPM Work Phone: [facility] 04-06-2025 08:23-0400 Body weight 163.29 kg Jonathon Dahl DPM Work Phone: [facility] 03-09-2025 14:44-0400 Body mass index (BMI) [Ratio] 49.22 kg/m2 Bo Michelle ENVIRONMENTAL RESEARCH PROJECT MANAGER-ESCALATOR OPERATOR Work Phone: [facility] 03-09-2025 14:44-0400 Body weight 164.66 kg Bo Michelle ENVIRONMENTAL RESEARCH PROJECT MANAGER-ESCALATOR OPERATOR Work Phone: [facility] 03-09-2025 14:44-0400 Diastolic blood pressure 74 mm[Hg] Bo Michelle ENVIRONMENTAL RESEARCH PROJECT MANAGER-ESCALATOR OPERATOR Work Phone: [facility] 03-09-2025 14:44-0400 Heart rate 68 /min Bo Michelle ENVIRONMENTAL RESEARCH PROJECT MANAGER-ESCALATOR OPERATOR Work Phone: [facility] 03-09-2025 14:44-0400 Respiratory rate 18 /min Bo Michelle ENVIRONMENTAL RESEARCH PROJECT MANAGER-ESCALATOR OPERATOR Work Phone: [facility] 03-09-2025 14:44-0400 SaO2% (BldA) [Mass fraction] 97 % Bo Michelle ENVIRONMENTAL RESEARCH PROJECT MANAGER-ESCALATOR OPERATOR Work Phone: [facility] 03-09-2025 14:44-0400 Systolic blood pressure 130 mm[Hg] Bo Michelle ENVIRONMENTAL RESEARCH PROJECT MANAGER-ESCALATOR OPERATOR Work Phone: [facility] 03-08-2025 11:05-0400 Body height 182.9 cm Guerda Aggarwal MD Work Phone: [facility] 03-08-2025 11:05-0400 Body mass index (BMI) [Ratio] 48.81 kg/m2 Guerda Aggarwal MD Work Phone: [facility] 03-08-2025 11:05-0400 Body weight 163.29 kg Guerda Aggarwal MD Work Phone: [facility] 03-08-2025 11:05-0400 Diastolic blood pressure 73 mm[Hg] Guerda Aggarwal MD Work Phone: [facility] 03-08-2025 11:05-0400 Heart rate 80 /min Guerda Aggarwal MD Work Phone: [facility] 03-08-2025 11:05-0400 SaO2% (BldA) [Mass fraction] 95 % Guerda Aggarwal MD Work Phone: [facility] 03-08-2025 11:05-0400 Systolic blood pressure 128 mm[Hg] Guerda Aggarwal MD Work Phone: [facility] 02-28-2025 15:26-0400 Body mass index (BMI) [Ratio] 48.96 kg/m2 Bo Schchepe ENVIRONMENTAL RESEARCH PROJECT MANAGER-ESCALATOR OPERATOR Work Phone: [facility] 02-28-2025 15:26-0400 Body weight 163.75 kg Bo Michelle ENVIRONMENTAL RESEARCH PROJECT MANAGER-ESCALATOR OPERATOR Work Phone: [facility] 02-28-2025 15:26-0400 Diastolic blood pressure 72 mm[Hg] Bo Adkinsestermarycruzer ENVIRONMENTAL RESEARCH PROJECT MANAGER-ESCALATOR OPERATOR Work Phone: [facility] 02-28-2025 15:26-0400 Heart rate 76 /min Bo Adkinsestermarycruzer ENVIRONMENTAL RESEARCH PROJECT MANAGER-ESCALATOR OPERATOR Work Phone: [facility] 02-28-2025 15:26-0400 Respiratory rate 18 /min Bo Merinoer ENVIRONMENTAL RESEARCH PROJECT MANAGER-ESCALATOR OPERATOR Work Phone: [facility] 02-28-2025 15:26-0400 SaO2% (BldA) [Mass fraction] 97 % Bo Martinchter ENVIRONMENTAL RESEARCH PROJECT MANAGER-ESCALATOR OPERATOR Work Phone: [facility] 02-28-2025 15:26-0400 Systolic blood pressure 134 mm[Hg] Bo Michelle ENVIRONMENTAL RESEARCH PROJECT MANAGER-ESCALATOR OPERATOR Work Phone: [facility] 02-24-2025 13:17-0400 Body height 182.9 cm Jonathon Dahl DPM Work Phone: [facility] 02-24-2025 13:17-0400 Body mass index (BMI) [Ratio] 48.82 kg/m2 Jonathon Dahl DPM Work Phone: [facility] 02-24-2025 13:17-0400 Body weight 163.29 kg Jonathon Dahl DPM Work Phone: [facility] 02-21-2025 14:58-0400 Body mass index (BMI) [Ratio] 49.64 kg/m2 Bo Mariochter ENVIRONMENTAL RESEARCH PROJECT MANAGER-ESCALATOR OPERATOR Work Phone: [facility] 02-21-2025 14:58-0400 Body weight 166.02 kg Bo Schesterchter ENVIRONMENTAL RESEARCH PROJECT MANAGER-ESCALATOR OPERATOR Work Phone: [facility] 02-21-2025 14:58-0400 Diastolic blood pressure 76 mm[Hg] Bo Michelle ENVIRONMENTAL RESEARCH PROJECT MANAGER-ESCALATOR OPERATOR Work Phone: [facility] 02-21-2025 14:58-0400 Heart rate 96 /min Bo Merinoer ENVIRONMENTAL RESEARCH PROJECT MANAGER-ESCALATOR OPERATOR Work Phone: [facility] 02-21-2025 14:58-0400 Respiratory rate 20 /min Bo Merinoer ENVIRONMENTAL RESEARCH PROJECT MANAGER-ESCALATOR OPERATOR Work Phone: [facility] 02-21-2025 14:58-0400 SaO2% (BldA) [Mass fraction] 96 % Bo Michelle ENVIRONMENTAL RESEARCH PROJECT MANAGER-ESCALATOR OPERATOR Work Phone: [facility] 02-21-2025 14:58-0400 Systolic blood pressure 130 mm[Hg] Bo Michelle ENVIRONMENTAL RESEARCH PROJECT MANAGER-ESCALATOR OPERATOR Work Phone: [facility] 12-29-2024 14:15-0500 Body height 182.9 cm Jonathon Rusher DPM Work Phone: [facility] 12-29-2024 14:15-0500 Body mass index (BMI) [Ratio] 47.47 kg/m2 Jonathon Rusher DPM Work Phone: [facility] 12-29-2024 14:15-0500 Body weight 158.76 kg Jonathon Rusher DPM Work Phone: [facility] 12-13-2024 13:03-0500 Body height 182.9 cm Jonathon Rusher DPM Work Phone: [facility] 12-13-2024 13:03-0500 Body mass index (BMI) [Ratio] 47.47 kg/m2 Jonathon Rusher DPM Work Phone: [facility] 12-13-2024 13:03-0500 Body weight 158.76 kg Jonathon Rusher DPM Work Phone: [facility] 11-24-2024 14:52-0500 Body height 182.9 cm Jonathon Rusher DPM Work Phone: [facility] 11-24-2024 14:52-0500 Body mass index (BMI) [Ratio] 47.47 kg/m2 Jonathon Dahl DPM Work Phone: [facility] 11-24-2024 14:52-0500 Body weight 158.76 kg Jonathon Hesham DPM Work Phone: [facility] 10-21-2024 14:39-0500 Body height 182.9 cm Megan Blank MD Work Phone: [facility] 10-21-2024 14:39-0500 Body mass index (BMI) [Ratio] 47.4 kg/m2 Megan Blank MD Work Phone: [facility] 10-21-2024 14:39-0500 Body temperature 95.7 [degF] Megan Blank MD Work Phone: [facility] 10-21-2024 14:39-0500 Body weight 158.53 kg Megan Blank MD Work Phone: [facility] 10-21-2024 14:39-0500 Diastolic blood pressure 82 mm[Hg] Megan Blank MD Work Phone: [facility] 10-21-2024 14:39-0500 Heart rate 80 /min Megan Blank MD Work Phone: [facility] 10-21-2024 14:39-0500 Respiratory rate 16 /min Megan Balnk MD Work Phone: [facility] 10-21-2024 14:39-0500 Systolic blood pressure 138 mm[Hg] Megan Blank MD Work Phone: [facility] 10-07-2024 14:36-0500 Body mass index (BMI) [Ratio] 47.6 kg/m2 Cesar Valle MD Work Phone: [facility] 10-07-2024 14:36-0500 Body weight 159.21 kg Cesar Valle MD Work Phone: [facility] 10-07-2024 14:36-0500 Diastolic blood pressure 83 mm[Hg] Cesar Valle MD Work Phone: [facility] 10-07-2024 14:36-0500 Heart rate 87 /min Cesar Valle MD Work Phone: [facility] 10-07-2024 14:36-0500 Systolic blood pressure 141 mm[Hg] Cesar Valle MD Work Phone: [facility] 09-28-2024 14:48-0500 Body height 182.9 cm Megan Blank MD Work Phone: [facility] 09-28-2024 14:48-0500 Body mass index (BMI) [Ratio] 46.93 kg/m2 Megan Blank MD Work Phone: [facility] 09-28-2024 14:48-0500 Body temperature 97.2 [degF] Megan Blank MD Work Phone: [facility] 09-28-2024 14:48-0500 Body weight 156.94 kg Megan Blank MD Work Phone: [facility] 09-28-2024 14:48-0500 Diastolic blood pressure 70 mm[Hg] Megan Blank MD Work Phone: [facility] 09-28-2024 14:48-0500 Heart rate 97 /min Megan Blank MD Work Phone: [facility] 09-28-2024 14:48-0500 Respiratory rate 18 /min Megan Blank MD Work Phone: [facility] 09-28-2024 14:48-0500 SaO2% (BldA) [Mass fraction] 96 % Megan Blank MD Work Phone: [facility] 09-28-2024 14:48-0500 Systolic blood pressure 124 mm[Hg] Megan Blank MD Work Phone: [facility] 08-12-2024 14:57-0400 Body height 182.9 cm Jonathon Dahl DPM Work Phone: [facility] 08-12-2024 14:57-0400 Body mass index (BMI) [Ratio] 47.47 kg/m2 Jonathon Dahl DPM Work Phone: [facility] 08-12-2024 14:57-0400 Body weight 158.76 kg Jonathon Dahl DPM Work Phone: [facility] 08-09-2024 10:26-0400 Body height 182.9 cm Megan Blank MD Work Phone: [facility] 08-09-2024 10:26-0400 Body mass index (BMI) [Ratio] 46.11 kg/m2 Megan Blank MD Work Phone: [facility] 08-09-2024 10:26-0400 Body temperature 98.71 [degF] Megan Blank MD Work Phone: [facility] 08-09-2024 10:26-0400 Body weight 154.22 kg Megan Blank MD Work Phone: [facility] 08-09-2024 10:26-0400 Diastolic blood pressure 80 mm[Hg] Megan Blank MD Work Phone: [facility] 08-09-2024 10:26-0400 Heart rate 88 /min Megan Blank MD Work Phone: [facility] 08-09-2024 10:26-0400 Respiratory rate 16 /min Megan Blank MD Work Phone: [facility] 08-09-2024 10:26-0400 Systolic blood pressure 132 mm[Hg] Megan Blank MD Work Phone: [facility] 07-30-2024 14:53-0400 Body height 182.9 cm Megan Blank MD Work Phone: [facility] 07-30-2024 14:53-0400 Body mass index (BMI) [Ratio] 46.11 kg/m2 Megan Blank MD Work Phone: [facility] 07-30-2024 14:53-0400 Body temperature 97.9 [degF] Megan Blank MD Work Phone: [facility] 07-30-2024 14:53-0400 Body weight 154.22 kg Megan Blank MD Work Phone: [facility] 07-30-2024 14:53-0400 Diastolic blood pressure 70 mm[Hg] Megan Blank MD Work Phone: [facility] 07-30-2024 14:53-0400 Heart rate 88 /min Megan Blank MD Work Phone: [facility] 07-30-2024 14:53-0400 Respiratory rate 16 /min Megan Blank MD Work Phone: [facility] 07-30-2024 14:53-0400 Systolic blood pressure 126 mm[Hg] Megan Blank MD Work Phone: [facility] 06-25-2024 13:00-0400 Body mass index (BMI) [Ratio] 47.1 kg/m2 Jo Bertha ENVIRONMENTAL RESEARCH PROJECT MANAGER-ESCALATOR OPERATOR Work Phone: [facility] 06-25-2024 13:00-0400 Body temperature 97.9 [degF] Jo Stone ENVIRONMENTAL RESEARCH PROJECT MANAGER-ESCALATOR OPERATOR Work Phone: [facility] 06-25-2024 13:00-0400 Body weight 157.53 kg Jo Madison ENVIRONMENTAL RESEARCH PROJECT MANAGER-ESCALATOR OPERATOR Work Phone: [facility] 06-25-2024 13:00-0400 Diastolic blood pressure 75 mm[Hg] Jo Stone ENVIRONMENTAL RESEARCH PROJECT MANAGER-ESCALATOR OPERATOR Work Phone: [facility] 06-25-2024 13:00-0400 Heart rate 91 /min Jo Bertha BEAU-ESCALATOR OPERATOR Work Phone: [facility] 06-25-2024 13:00-0400 Respiratory rate 18 /min Jo Bertha ENVIRONMENTAL RESEARCH PROJECT MANAGER-ESCALATOR OPERATOR Work Phone: [facility] 06-25-2024 13:00-0400 Systolic blood pressure 113 mm[Hg] Jo Stone ENVIRONMENTAL RESEARCH PROJECT MANAGER-ESCALATOR OPERATOR Work Phone: [facility] [employer] [facility] 06-25-2024 09:32-0400 Body height 182.9 cm Megan Blank MD Work Phone: [facility] 06-25-2024 09:32-0400 Body mass index (BMI) [Ratio] 46.79 kg/m2 Megan Blank MD Work Phone: [facility] 06-25-2024 09:32-0400 Body temperature 98.01 [degF] Megan Blank MD Work Phone: [facility] [employer] [facility] 06-25-2024 09:32-0400 Body weight 156.49 kg Megan Blank MD Work Phone: [facility] [employer] [facility] 06-25-2024 09:32-0400 Diastolic blood pressure 84 mm[Hg] Megan Blank MD Work Phone: [facility] 06-25-2024 09:32-0400 Heart rate 80 /min Megan Blank MD Work Phone: [facility] [employer] [facility] 06-25-2024 09:32-0400 Respiratory rate 16 /min Megan Blank MD Work Phone: [facility] 06-25-2024 09:32-0400 Systolic blood pressure 140 mm[Hg] Megan Blank MD Work Phone: [facility] 06-24-2024 10:59-0400 Diastolic blood pressure 80 mm[Hg] Cesar Valle MD Work Phone: [facility] [employer] [facility] 06-24-2024 10:59-0400 Heart rate 88 /min Cesar Valle MD Work Phone: [facility] 06-24-2024 10:59-0400 SaO2% (BldA) [Mass fraction] 95 % Cesar Valle MD Work Phone: [facility] [employer] [facility] 06-24-2024 10:59-0400 Systolic blood pressure 130 mm[Hg] Cesar Valle MD Work Phone: [facility] 06-24-2024 10:57-0400 Body height 182.9 cm Cesar Valle MD Work Phone: [facility] 06-24-2024 10:57-0400 Body mass index (BMI) [Ratio] 47.06 kg/m2 Cesar Valle MD Work Phone: [facility] 06-24-2024 10:57-0400 Body weight 157.4 kg Cesar Valle MD Work Phone: [facility] 06-15-2024 16:01-0400 Body height 182.9 cm Megan Blank MD Work Phone: [facility] 06-15-2024 16:01-0400 Body mass index (BMI) [Ratio] 47.13 kg/m2 Megan Blank MD Work Phone: [facility] 06-15-2024 16:01-0400 Body temperature 98.01 [degF] Megan Blank MD Work Phone: [facility] 06-15-2024 16:01-0400 Body weight 157.63 kg Megan Blank MD Work Phone: [facility] 06-15-2024 16:01-0400 Diastolic blood pressure 80 mm[Hg] Megan Blank MD Work Phone: [facility] 06-15-2024 16:01-0400 Heart rate 88 /min Megan Blank MD Work Phone: [facility] 06-15-2024 16:01-0400 Respiratory rate 16 /min Megan Blank MD Work Phone: [facility] 06-15-2024 16:01-0400 Systolic blood pressure 124 mm[Hg] Megan Blank MD Work Phone: [facility] 06-04-2024 09:37-0400 Body height 182.9 cm Megan Blank MD Work Phone: [facility] 06-04-2024 09:37-0400 Body mass index (BMI) [Ratio] 46.79 kg/m2 Megan Blank MD Work Phone: [facility] 06-04-2024 09:37-0400 Body temperature 97.9 [degF] Megan Blank MD Work Phone: [facility] 06-04-2024 09:37-0400 Body weight 156.49 kg Megan Blank MD Work Phone: [facility] 06-04-2024 09:37-0400 Diastolic blood pressure 80 mm[Hg] Megan Blank MD Work Phone: [facility] 06-04-2024 09:37-0400 Heart rate 80 /min Megan Blank MD Work Phone: [facility] 06-04-2024 09:37-0400 Respiratory rate 16 /min Megan Blank MD Work Phone: [facility] 06-04-2024 09:37-0400 Systolic blood pressure 136 mm[Hg] Megan Blank MD Work Phone: [facility] 03-11-2024 09:17-0400 Body height 182.9 cm Megan Blank MD Work Phone: [facility] 03-11-2024 09:17-0400 Body mass index (BMI) [Ratio] 48.42 kg/m2 Megan Blank MD Work Phone: [facility] 03-11-2024 09:17-0400 Body weight 161.93 kg Megan Blank MD Work Phone: [facility] 03-11-2024 09:17-0400 Diastolic blood pressure 80 mm[Hg] Megan Blank MD Work Phone: [facility] 03-11-2024 09:17-0400 Heart rate 88 /min Megan Blank MD Work Phone: [facility] 03-11-2024 09:17-0400 Respiratory rate 16 /min Megan Blank MD Work Phone: [facility] 03-11-2024 09:17-0400 Systolic blood pressure 140 mm[Hg] Megan Blank MD Work Phone: [facility] 01-26-2024 14:00-0400 Body height 182.9 cm Megan Blank MD Work Phone: [facility] 01-26-2024 14:00-0400 Body mass index (BMI) [Ratio] 48.82 kg/m2 Megan Blank MD Work Phone: [facility] 01-26-2024 14:00-0400 Body weight 163.29 kg Megan Blank MD Work Phone: [facility] 01-26-2024 14:00-0400 Diastolic blood pressure 76 mm[Hg] Megan Blank MD Work Phone: [facility] 01-26-2024 14:00-0400 Heart rate 88 /min Megan Blank MD Work Phone: [facility] 01-26-2024 14:00-0400 Respiratory rate 16 /min Megan Blank MD Work Phone: [facility] 01-26-2024 14:00-0400 Systolic blood pressure 120 mm[Hg] Megan Blank MD Work Phone: [facility] Encounters Encounter Date Encounter Type Care Provider Facility Start: 08-09-2025 End: 08-09-2025 Bamboo flowsheet Jonathon Dahl DPM Work Phone: [facility] Start: 08-09-2025 End: 08-09-2025 Bamboo flowsheet Jonathon Dahl DPM Work Phone: [facility] Start: 08-09-2025 End: 08-09-2025 ambulatory JONATHON DAHL Not Available Start: 08-03-2025 End: 08-03-2025 Orders Only Justino Gaspar MD Work Phone: [facility] Comment on above: 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) Start: 07-25-2025 End: 07-25-2025 Office outpatient visit 25 minutes Justino Gaspar MD Work Phone: [facility] Comment on above: Cellulitis of right lower leg (Primary Dx); Cellulitis of left lower leg; Lymphedema of both lower extremities Start: 07-25-2025 End: 07-25-2025 ambulatory [facility] Start: 07-11-2025 End: 07-11-2025 Bamboo flowsheet Jonathon Dahl DPM Work Phone: [facility] Start: 07-11-2025 End: 07-11-2025 Bamboo flowsheet Jonathon Dahl DPM Work Phone: [facility] Start: 07-11-2025 End: 07-11-2025 Patient encounter procedure Jonathon Dahl DPM Work Phone: [facility] Comment on above: Onychomycosis (Prima ry Dx); Onychodystrophy; Pain around toenail, right foot; Pain around toenail, left foot Start: 07-11-2025 End: 07-11-2025 ambulatory JONATHON DAHL Not Available Start: 07-11-2025 End: 07-11-2025 Office outpatient visit 25 minutes Bo Schchepe [place] Work Phone: [facility] Comment on above: Lymphedema of both l ower extremities (Primary Dx); Cellulitis of right lower leg; Cellulitis of left lower leg Start: 07-11-2025 End: 07-11-2025 ambulatory [facility] Start: 06-16-2025 End: 06-16-2025 Office outpatient visit 15 minutes Jonathon Dahl DPM Work Phone: [facility] Comment on above: Plantar wart, left f oot (Primary Dx); Acquired keratoderma; Left foot pain; Difficulty walking Start: 06-16-2025 End: 06-16-2025 Bamboo flowsheet Jonathon Dahl DPM Work Phone: [facility] Start: 06-16-2025 End: 06-16-2025 Bamboo flowsheet Jonathon Dahl DPM Work Phone: [facility] Start: 06-16-2025 End: 06-16-2025 ambulatory JONATHON DAHL Not Available Start: 05-18-2025 End: 05-18-2025 Refill Megan Blank MD Work Phone: [facility] Start: 05-14-2025 End: 05-16-2025 Refill Megan Blank MD Work Phone: [facility] Start: 04-28-2025 End: 04-28-2025 Refill Kathy Kendrick [facility] Comment on above: Other iron deficienc y anemia Start: 04-27-2025 End: 04-27-2025 Telephone encounter Guerda Aggarwal MD Work Phone: [facility] Comment on above: Other iron deficienc y anemia (Primary Dx) Start: 04-27-2025 ambulatory GUERDA AGGARWAL [facility] Start: 04-06-2025 End: 04-06-2025 Bamboo flowsheet Jonathon Dahl DPM Work Phone: [facility] Start: 04-06-2025 End: 04-06-2025 Bamboo flowsheet Jonathon Dahl DPM Work Phone: [facility] Start: 04-06-2025 End: 04-06-2025 Office outpatient visit 15 minutes Jonathon Dahl DPM Work Phone: [facility] Comment on above: Bursitis of left jah t (Primary Dx); Acquired keratoderma; Left foot pain; Difficulty walking Start: 04-06-2025 End: 04-06-2025 ambulatory JONATHON DAHL Not Available Start: 03-14-2025 End: 03-14-2025 Orders Only Justino Gaspar MD Work Phone: [facility] Comment on above: Nonrheumatic aortic valve stenosis (Primary Dx) Start: 03-09-2025 End: 03-09-2025 ambulatory [facility] Start: 03-09-2025 End: 03-09-2025 Office outpatient visit 15 minutes Bo Michelle ENVIRONMENTAL RESEARCH PROJECT MANAGER-ESCALATOR OPERATOR Work Phone: [facility] Comment on above: Lymphedema of both l ower extremities (Primary Dx); Cellulitis of right lower leg Start: 03-09-2025 End: 03-09-2025 Telephone encounter Joy Michelle [facility] Start: 03-08-2025 End: 03-08-2025 [...] in adult Start: 03-08-2025 End: 03-08-2025 ambulatory [facility] Start: 03-02-2025 End: 03-02-2025 Orders Only Bo Michelle ENVIRONMENTAL RESEARCH PROJECT MANAGER-ESCALATOR OPERATOR Work Phone: [facility] Comment on above: Lymphedema of both l ower extremities (Primary Dx); Cellulitis of right lower leg Start: 02-28-2025 End: 02-28-2025 Office outpatient visit 15 minutes Bo Michelle ENVIRONMENTAL RESEARCH PROJECT MANAGER-ESCALATOR OPERATOR Work Phone: [facility] Comment on above: Lymphedema of both l ower extremities (Primary Dx); Cellulitis of right lower leg Start: 02-28-2025 End: 02-28-2025 ambulatory [facility] Start: 02-24-2025 End: 02-24-2025 Bamboo flowsheet Jonathon Dahl DPM Work Phone: [facility] Start: 02-24-2025 End: 02-24-2025 Bamboo flowsheet Jonathon Dahl DPM Work Phone: [facility] Start: 02-24-2025 End: 02-24-2025 Telephone encounter Elvia Lara [facility] Start: 02-24-2025 End: 02-24-2025 Patient encounter procedure Jonathon Dahl DPM Work Phone: [facility] Comment on above: Onychomycosis (Prima ry Dx); Onychodystrophy; Pain around toenail, right foot; Pain around toenail, left foot Start: 02-24-2025 End: 02-24-2025 ambulatory JONATHON DAHL Not Available Start: 02-21-2025 End: 02-21-2025 ambulatory [facility] Start: 02-21-2025 End: 02-21-2025 Office outpatient visit 25 minutes [facility] ENVIRONMENTAL RESEARCH PROJECT MANAGER-ESCALATOR OPERATOR Work Phone: [facility] Comment on above: Lymphedema of both l ower extremities (Primary Dx); Cellulitis of right lower leg; Arthritis of left sacroiliac joint; Chronic bronchitis, unspecified chronic bronchitis type ([facility] BMI 45.0-49.9, adult ([facility]); Pure hypercholesterolemia; Essential hypertension Start: 02-21-2025 End: 02-21-2025 Telephone encounter Adriana Weaver RN Work Phone: [facility] Start: 01-26-2025 End: 01-26-2025 Office outpatient visit 15 minutes Jonathon Dahl DPM Work Phone: [facility] Comment on above: Plantar wart, left f oot (Primary Dx); Acquired keratoderma; Left foot pain; Difficulty walking Start: 01-26-2025 End: 01-26-2025 ambulatory JONATHON DAHL Not Available Start: 01-26-2025 End: 01-26-2025 Bamboo flowsheet Jonathon Dahl DPM Work Phone: [facility] Start: 01-26-2025 End: 01-26-2025 Bamboo flowsheet Jonathon Dahl DPM Work Phone: [facility] Start: 12-29-2024 End: 12-29-2024 Office outpatient visit 15 minutes Jonathon Dahl DPM Work Phone: [facility] Comment on above: Plantar wart, left f oot (Primary Dx); Acquired keratoderma; Left foot pain; Difficulty walking Start: 12-29-2024 End: 12-29-2024 ambulatory JONATHON DAHL Not Available Start: 12-29-2024 End: 12-29-2024 Bamboo flowsheet Jonathon Dahl DPM Work Phone: [facility] Start: 12-29-2024 End: 12-29-2024 Bamboo flowsheet Jonathon Dahl DPM Work Phone: [facility] Start: 12-27-2024 End: 12-27-2024 Orders Only Bo Michelle APRN-ESCALATOR OPERATOR [facility] Start: 12-13-2024 End: 12-13-2024 Bamboo flowsheet Jonathon Dahl DPM Work Phone: [facility] Start: 12-13-2024 End: 12-13-2024 Bamboo flowsheet Jonathon Dahl DPM Work Phone: [facility] Start: 12-13-2024 End: 12-13-2024 Office outpatient visit 15 minutes Jonathon Dahl DPM Work Phone: [facility] Comment on above: Plantar wart, left f oot (Primary Dx); Acquired keratoderma; Left foot pain; Difficulty walking Start: 12-13-2024 End: 12-13-2024 ambulatory JNOATHON DAHL Not Available Start: 11-24-2024 End: 11-24-2024 Patient encounter procedure Jonathon Dahl DPM Work Phone: [facility] Comment on above: Onychomycosis (Prima ry Dx); Onychodystrophy; Pain around toenail, right foot; Pain around toenail, left foot Start: 11-24-2024 End: 11-24-2024 ambulatory JONATHON DAHL Not Available Start: 11-24-2024 End: 11-24-2024 Bamboo flowsheet Jonathon Dahl DPM Work Phone: [facility] Start: 11-24-2024 End: 11-24-2024 Bamboo flowsheet Jonathon Dahl DPM Work Phone: [facility] Start: 11-08-2024 End: 11-11-2024 Telephone encounter Megan Blank MD Work Phone: [facility] Start: 10-21-2024 End: 10-21-2024 Patient encounter procedure Megan Blank MD Work Phone: [facility] Comment on above: Routine general medi adrian examination at a health care facility (Primary Dx); Essential hypertension; Pure hypercholesterolemia; Lymphedema of both lower extremities; BMI 45.0-49.9, adult ([facility]) Start: 10-21-2024 End: 10-21-2024 Patient encounter status Megan Blank MD Work Phone: [facility] Work Phone: Start: 10-21-2024 End: 10-21-2024 [facility] Start: 10-21-2024 Encounter for genera l adult medical examination without abnormal findings [facility] Start: 10-08-2024 End: 10-08-2024 Refill Ev Headley [facility] Start: 10-07-2024 End: 10-07-2024 Office outpatient visit 15 minutes Cesar Valle MD Work Phone: [facility] Comment on above: Lymphedema of both l ower extremities (Primary Dx) Start: 10-07-2024 End: 10-07-2024 ambulatory CESAR VALLE [facility] Start: 09-28-2024 End: 09-28-2024 Office outpatient visit 15 minutes Megan Blank MD Work Phone: [facility] Comment on above: Cellulitis of right lower leg (Primary Dx); Lymphedema of both lower extremities Start: 09-28-2024 End: 09-28-2024 ambulatory [facility] Start: 08-12-2024 End: 08-12-2024 ambulatory JONATHON DAHL Not Available Start: 08-12-2024 End: 08-12-2024 Patient encounter procedure Jonathon Dahl DPM Work Phone: [facility] Comment on above: Onychomycosis (Prima ry Dx); Onychodystrophy; Pain around toenail, right foot; Pain around toenail, left foot Start: 08-09-2024 End: 08-09-2024 Office outpatient visit 25 minutes Megan Blank MD Work Phone: [facility] Comment on above: Cellulitis of right lower leg (Primary Dx); Chronic bronchitis, unspecified chronic bronchitis type (CMS-HCC); Essential hypertension; Pure hypercholesterolemia; Asthenia Start: 08-09-2024 End: 08-09-2024 ambulatory [facility] Start: 08-06-2024 End: 08-06-2024 Telephone encounter Asia Olson LPN [facility] Start: 07-30-2024 End: 08-03-2024 Emergency department patient visit BETTY ROMO [facility] Start: 07-30-2024 End: 08-02-2024 Evaluation and management of inpatient [facility] Start: 07-30-2024 End: 07-30-2024 Office outpatient visit 15 minutes Megan Blank MD Work Phone: [facility] Comment on above: Cellulitis of right lower extremity (Primary Dx); Lymphedema of both lower extremities Start: 07-30-2024 End: 07-30-2024 ambulatory [facility] Start: 07-30-2024 End: 08-03-2024 Emergency department patient visit BETTY ROMO [facility] Start: 07-27-2024 End: 07-27-2024 Telephone encounter Megan Blank MD Work Phone: [facility] Start: 07-27-2024 End: 07-27-2024 Emergency department patient visit MEGAN BLANK [facility] Start: 07-14-2024 End: 07-18-2024 ambulatory JO Rg BERTHA [facility] Start: 07-02-2024 End: 07-02-2024 ambulatory [facility] 1 [facility] Comment on above: Cellulitis of right lower extremity (Primary Dx) Start: 06-29-2024 End: 06-29-2024 Telephone encounter Antoinette Gu RN [facility] Comment on above: Care Navigation Start: 06-28-2024 End: 07-18-2024 ambulatory [facility] Start: 06-25-2024 End: 06-25-2024 Office outpatient new 20 minutes Jo Hinesey ENVIRONMENTAL RESEARCH PROJECT MANAGER-ESCALATOR OPERATOR Work Phone: [facility] Comment on above: Blister of right low er extremity without infection, initial encounter (Primary Dx); Cellulitis of right lower extremity; Lymphedema of both lower extremities Start: 06-25-2024 End: 06-25-2024 ambulatory JO STONE [facility] Start: 06-25-2024 End: 06-25-2024 Office outpatient visit 15 minutes Megan Blank MD Work Phone: [facility] Comment on above: Lymphedema of both l ower extremities (Primary Dx); Essential hypertension; Cellulitis of right lower extremity Start: 06-24-2024 End: 06-24-2024 Office outpatient new 45 minutes Cesar Valle MD Work Phone: [facility] Comment on above: Lymphangitis (Primar y Dx); Lymphedema of both lower extremities Start: 06-17-2024 End: 07-18-2024 ambulatory [facility] Start: 06-16-2024 End: 06-16-2024 Telephone encounter Lucia [...] End: 06-11-2024 Emergency department patient visit [facility] Start: 06-07-2024 End: 06-17-2024 ambulatory [facility] Start: 06-04-2024 End: 06-04-2024 Transitional care manage srvc 14 day discharge Megan Blank MD Work Phone: [facility] Comment on above: Essential hypertensi on (Primary Dx); Pure hypercholesterolemia; Lymphedema of both lower extremities; Cellulitis of right lower extremity; S/P total knee arthroplasty, right Start: 06-02-2024 End: 06-02-2024 ambulatory NANNETTE ANDREAS [facility] Start: 05-31-2024 [facility] Start: 05-28-2024 End: 05-28-2024 Telephone encounter [facility] Comment on above: Transition Of Care Start: 05-25-2024 End: 05-28-2024 Emergency department patient visit [facility] Start: 05-25-2024 End: 05-27-2024 Evaluation and management of inpatient MEGAN BLANK [facility] Start: 05-24-2024 End: 05-24-2024 ambulatory [facility] Start: 05-18-2024 End: 05-18-2024 Telephone encounter [facility] Start: 05-12-2024 Evaluation and manag ement of inpatient [facility] Start: 05-12-2024 End: 05-13-2024 Evaluation and management of inpatient [facility] Start: 05-10-2024 End: 05-10-2024 ambulatory [facility] Start: 05-04-2024 End: 05-04-2024 ambulatory [facility] Start: 04-20-2024 End: 04-21-2024 Telephone encounter Megan Blank MD Work Phone: [facility] Start: 04-19-2024 End: 04-19-2024 ambulatory [facility] Start: 03-11-2024 End: 03-11-2024 Office outpatient [...] End: 04-28-2020 Patient encounter procedure JOHN CHRISTIE [facility] Start: 04-27-2020 End: 04-27-2020 Subsequent hospital visit by physician Elsa [facility] Comment on above: Arrived Start: 03-28-2020 End: 03-29-2020 Patient encounter procedure [facility] Start: 03-28-2020 End: 03-28-2020 Subsequent hospital visit by physician Elsa [facility] Comment on above: Arrived Start: 01-24-2020 End: 01-24-2020 Subsequent hospital visit by physician Nelda [facility] Start: 01-21-2020 End: 01-22-2020 Patient encounter procedure [facility] Start: 01-21-2020 End: 01-21-2020 Subsequent hospital visit by physician Nelda [facility] Comment on above: Arrived Start: 01-18-2020 End: 01-18-2020 Subsequent hospital visit by physician Elsa [facility] Start: 01-14-2020 End: 01-15-2020 Patient encounter procedure [facility] Start: 01-14-2020 End: 01-14-2020 Subsequent hospital visit by physician Nelda [facility] Comment on above: Arrived Start: 01-11-2020 End: 01-12-2020 Patient encounter procedure [facility] Start: 01-11-2020 End: 01-11-2020 Subsequent hospital visit by physician Nelda [facility] Comment on above: Arrived Start: 01-07-2020 End: 01-08-2020 Patient encounter procedure [facility] Start: 01-07-2020 End: 01-07-2020 Subsequent hospital visit by physician Nelda [facility] Comment on above: Arrived Start: 01-04-2020 End: 01-05-2020 Patient encounter procedure [facility] Start: 01-04-2020 End: 01-04-2020 Subsequent hospital visit by physician Nleda [facility] Comment on above: Arrived Start: 12-31-2019 End: 01-01-2020 Patient encounter procedure [facility] Start: 12-31-2019 End: 12-31-2019 Subsequent hospital visit by physician Elsa [facility] Comment on above: Arrived Start: 12-28-2019 End: 12-29-2019 Patient encounter procedure [facility] Start: 12-28-2019 End: 12-28-2019 Subsequent hospital visit by physician Nelda [facility] Comment on above: Arrived Start: 12-24-2019 End: 12-24-2019 Subsequent hospital visit by physician Nelda [facility] Start: 12-21-2019 End: 12-22-2019 Patient encounter procedure [facility] Start: 12-21-2019 End: 12-21-2019 Subsequent hospital visit by physician Nelda [facility] Comment on above: Arrived Start: 12-14-2019 End: 12-15-2019 Patient encounter procedure [facility] Start: 12-14-2019 End: 12-14-2019 Subsequent hospital visit by physician Nelda [facility] Comment on above: Arrived Start: 12-10-2019 End: 12-11-2019 Patient encounter procedure [facility] Start: 12-10-2019 End: 12-10-2019 Subsequent hospital visit by physician Nelda [facility] Comment on above: Arrived Procedures Date Procedure Procedure Detail Performing Clinician Start: 07-25-2025 Adult depression scr eening assessment Justino Gaspar MD Work Phone: Start: 07-11-2025 Adult depression scr eening assessment Bo Michelle ENVIRONMENTAL RESEARCH PROJECT MANAGER-ESCALATOR OPERATOR Work Phone: Start: 02-21-2025 Adult depression scr eening assessment Bo Michelle ENVIRONMENTAL RESEARCH PROJECT MANAGER-ESCALATOR OPERATOR Work Phone: Start: 10-21-2024 Adult depression scr [...] Start: 07-02-2024 NURSING COMMUNICATION M domi Stone ENVIRONMENTAL RESEARCH PROJECT MANAGER-ESCALATOR OPERATOR Work Phone: Start: 06-25-2024 Adult depression scr [...] Adult depression scr eening assessment Ev Headley [facility] Start: 01-06-2023 Colonoscopy Ev scales [employer] 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 Work Phone: Start: 01-06-2028 Screening for malignant neoplasm of colon Colonoscopy [facility] Start: 07-25-2026 Adult BMI Follow Up Plan Adult BMI Follow Up Plan [facility] Start: 07-25-2026 Adult BMI Screening Adult BMI Screen ing [facility] Start: 07-25-2026 Depression Screening Depression Scre [facility] Start: 07-25-2026 Tobacco Screening Tobacco Screening [facility] Start: 07-11-2026 Adult BMI Screening Adult BMI Screen ing [facility] Start: 07-11-2026 Depression Screening Depression Scre ening [facility] Start: 07-11-2026 Tobacco Screening Tobacco Screening [facility] Start: 03-09-2026 Adult BMI Follow Up Plan Adult BMI Follow Up Plan [facility] Start: 03-09-2026 Adult BMI Screening Adult BMI Screen ing [facility] Start: 03-09-2026 Tobacco Screening Tobacco Screening [facility] Start: 02-28-2026 Adult BMI Screening Adult BMI Screen ing [facility] Start: 02-21-2026 Adult BMI Follow Up Plan Adult BMI Follow Up Plan [facility] Start: 02-21-2026 Adult BMI Screening Adult BMI Screen ing [facility] Start: 02-21-2026 Depression Screening Depression Scre ening [facility] Start: 02-21-2026 Tobacco Screening Tobacco Screening [facility] Start: 10-24-2025 End: 10-24-[address] [facility] Start: 10-21-2025 Adult BMI Screening Adult BMI Screen ing [facility] Start: 10-21-2025 Depression Screening Depression Scre ening [facility] Start: 10-21-2025 Fall Risk Screening Fall Risk Screen ing [facility] Start: 10-21-2025 Medicare Annual Wellness Visit Medicare Annual Wellness Visit [facility] Start: 10-21-2025 Tobacco Screening Tobacco Screening [facility] Start: 10-07-2025 Adult BMI Screening Adult BMI Screen ing [facility] Start: 10-07-2025 Tobacco Screening Tobacco Screening [facility] Start: 09-28-2025 Adult BMI Screening Adult BMI Screen ing [facility] Start: 09-28-2025 Depression Screening Depression Scre ening [facility] Start: 09-28-2025 Fall Risk Screening Fall Risk Screen ing [facility] Start: 09-28-2025 Tobacco Screening Tobacco Screening [facility] Start: 09-19-2025 End: 09-19-2025 Patient encounter procedure 09/19/2025 9:30 AM EST Procedure Visit [facility] [address] [place] [phone] Jonathon Dahl, DPTaj [address] [place] [address] [facility] Start: 09-13-2025 End: 09-13-2025 Patient encounter procedure 09/13/2025 11:30 AM EDT Office Visit [facility] [address] [place] [address] Guerda Aggarwal MD [address] [facility] [address] [place] [address] [facility] Start: 08-09-2025 Adult BMI Screening Adult BMI Screen ing [facility] Start: 08-09-2025 Depression Screening Depression Scre ening [facility] Start: 08-09-2025 Fall Risk Screening Fall Risk Screen ing [facility] Start: 08-09-2025 Tobacco Screening Tobacco Screening [facility] Start: 08-01-2025 Adult BMI Screening Adult BMI Screen ing [facility] Start: 07-30-2025 Depression Screening Depression Scre ening [facility] Start: 07-30-2025 Fall Risk Screening Fall Risk Screen ing [facility] Start: 07-30-2025 Tobacco Screening Tobacco Screening [facility] Start: 07-27-2025 Adult BMI Screening Adult BMI Screen ing [facility] Start: 07-27-2025 Tobacco Screening Tobacco Screening [facility] Start: 07-25-2025 End: 07-11-2026 Basic metabolic 2000 [...] EDT Office Visit [facility] [address] [place] [phone] Justino Gaspar MD [address] [place] [address] [facility] Start: 07-18-2025 COVID-19 Vaccine ( season) COVID-19 Vaccine ( season) [facility] Start: 07-18-2025 Influenza vaccination [facility] Start: 07-11-2025 End: 07-11-2025 Patient encounter procedure [facility] Comment on above: Arrived Start: 06-25-2025 Adult BMI Screening Adult BMI Screen ing [facility] Start: 06-25-2025 Depression Screening Depression Scre ening [facility] Start: 06-25-2025 Fall Risk Screening Fall Risk Screen ing [facility] Start: 06-25-2025 Tobacco Screening Tobacco Screening [facility] Start: 06-24-2025 Adult BMI Screening Adult BMI Screen ing [facility] Start: 06-24-2025 Tobacco Screening Tobacco Screening [facility] Start: 06-16-2025 End: 06-16-2025 Patient encounter procedure 06/16/2025 2:15 PM EDT Office Visit [facility] [address] [place] [phone] Jonathon Dahl, DPTaj [address] [place] [address] Arrived [facility] Comment on above: Arrived Start: 06-15-2025 Adult BMI Screening Adult BMI Screen ing [facility] Start: 06-15-2025 Depression Screening Depression Scre ening [facility] Start: 06-15-2025 Fall Risk Screening Fall Risk Screen ing [facility] Start: 06-15-2025 Tobacco Screening Tobacco Screening [facility] Start: 06-04-2025 Adult BMI Screening Adult BMI Screen ing [facility] Start: 06-04-2025 Depression Screening Depression Scre ening [facility] Start: 06-04-2025 Fall Risk Screening Fall Risk Screen ing [facility] Start: 06-04-2025 Tobacco Screening Tobacco Screening [facility] Start: 05-26-2025 End: 05-26-2025 Patient encounter procedure 05/26/2025 2:15 PM EDT Procedure Visit [facility] [address] [place] [phone] Jonathon Dahl, DPM [address] [place] [address] [facility] Start: 05-26-2025 Adult BMI Screening Adult BMI Screen ing [facility] Start: 05-25-2025 Tobacco Screening Tobacco Screening [facility] Start: 04-06-2025 End: 04-06-2025 Patient encounter procedure 04/06/2025 8:30 AM EDT Office Visit [facility] [address] [place] [phone] Jonathon Dahl, DP [address] [place], [place] [phone] Arrived [facility] Comment on above: Arrived Start: 03-14-2025 End: 03-14-2026 Echo complete W/Strain Imaging Echo complete W/Strain Imaging Echocardiography Routine Nonrheumatic aortic valve stenosis Expected: 03/14/2025, Expires: 03/14/2026 [facility] Work Phone: Comment on above: Expected: 03/14/2025 , Expires: 03/14/2026 Start: 03-11-2025 Adult BMI Screening Adult BMI Screen ing [facility] Start: 03-11-2025 Depression Screening Depression Scre ening [facility] Start: 03-11-2025 Fall Risk Screening Fall Risk Screen ing [facility] Start: 03-11-2025 Tobacco Screening Tobacco Screening [facility] Start: 03-09-2025 End: 03-09-2025 Patient encounter procedure 03/09/2025 2:30 PM EDT Office Visit [facility] [address] [place] [phone] Bo Michelle, ENVIRONMENTAL RESEARCH PROJECT MANAGER-ESCALATOR OPERATOR [address] [place] [address] [facility] Start: 03-08-2025 End: 03-08-2025 Patient encounter procedure 03/08/2025 11:00 AM EDT Office Visit [facility] [address] [place] [phone] Guerda Aggarwal MD [address] [facility] [address] [place] [address] [facility] Start: 02-28-2025 End: 02-28-2025 Patient encounter procedure 02/28/2025 3:30 PM EDT Office Visit [facility] [address] [place] [phone] Bo Michelle, ENVIRONMENTAL RESEARCH PROJECT MANAGER-ESCALATOR OPERATOR [address] [facility] [address] [facility] Start: 02-27-2025 COVID-19 Vaccine () COVID-19 Vaccine () [facility] Start: 02-24-2025 End: 02-24-2025 Patient encounter procedure [facility] Comment on above: Arrived Start: 02-21-2025 End: 02-21-2025 Patient encounter procedure 02/21/2025 2:45 PM EDT [facility] [address] [place] [phone] Bo Michelle, ENVIRONMENTAL RESEARCH PROJECT MANAGER-ESCALATOR OPERATOR [address] [facility] [address] [facility] Start: 01-26-2025 End: 01-26-2025 Patient encounter procedure [facility] Comment on above: Arrived Start: 01-25-2025 Adult BMI Screening Adult BMI Screen ing [facility] Start: 01-25-2025 Depression Screening Depression Scre ening [facility] Start: 01-25-2025 Fall Risk Screening Fall Risk Screen ing [facility] Start: 01-25-2025 Tobacco Screening Tobacco Screening [facility] Start: 12-29-2024 End: 12-29-2024 [facility] on above: Arrived Start: 12-13-2024 End: 12-13-2024 Patient encounter procedure 12/13/2024 1:00 PM EST Office Visit [facility] [address] [place] [phone] Jonathon Dahl, DPTaj [address] [place], [place] [phone] Arrived [facility] Comment on above: Arrived Start: 11-24-2024 End: 11-24-2024 Patient encounter procedure [facility] Comment on above: Arrived Start: 10-22-2024 Tobacco Screening Tobacco Screening [facility] Start: 10-21-2024 End: 10-21-2024 Patient encounter procedure 10/21/2024 2:45 PM EST Office Visit [facility] [address] [place] [phone] Megan Blank MD [address] [place], [place] [phone] [facility] Start: 10-21-2024 Adult BMI Screening Adult BMI Screen ing [facility] Start: 10-07-2024 End: 10-07-2024 Patient encounter procedure 10/07/2024 2:30 PM EST Office Visit [facility] [address] [place] [address] Cesar Valle MD [address], [address] [address] [facility] Start: 09-30-2024 End: 09-30-2024 Patient encounter procedure 09/30/2024 10:00 AM EST Office Visit [facility] [address] [phone] Megan Blank MD [address] [place], [place] [phone] [facility] Start: 09-29-2024 Depression Screening Depression Scre ening [facility] Start: 09-29-2024 Fall Risk Screening Fall Risk Screen ing [facility] Start: 09-29-2024 Medicare Annual Wellness Visit Medicare Annual Wellness Visit [facility] Start: 07-18-2024 COVID-19 Vaccine () COVID-19 Vaccine () [facility] Start: 07-18-2024 Influenza vaccination [facility] Start: 07-14-2024 End: 07-14-2024 Patient encounter procedure 07/14/2024 1:00 PM EDT Office Visit [facility] [address] [place] [phone] Jo Stone, ENVIRONMENTAL RESEARCH PROJECT MANAGER-ESCALATOR OPERATOR [address] [place] [address] [facility] Start: 07-02-2024 End: 07-02-2024 ambulatory 07/02/2024 1:30 PM EDT Support Visit [facility] [address] [place] [phone] [facility] Start: 06-25-2024 End: 06-25-2024 Patient encounter procedure 06/25/2024 9:45 AM EDT Office Visit [facility] [address] [place] [phone] Megan Blank MD [address] [place], [place] [phone] [facility] Start: 06-24-2024 End: 06-24-2024 Patient encounter procedure 06/24/2024 11:10 AM EDT Office Visit [facility] [address] [place] [phone] Cesar Valle MD [address], [address] [address] [facility] Start: 06-17-2024 End: 06-17-2024 Patient encounter procedure 06/17/2024 6:30 AM EDT Appointment [facility] [address] [place] [address] [facility] Start: 06-11-2024 End: 06-11-2024 Patient encounter procedure 06/11/2024 9:15 AM EDT Appointment [facility] [address] [place] [phone] S/P total knee arthroplasty, right [facility] Comment on above: S/P total knee arthr oplasty, right Start: 06-04-2024 End: 06-04-2024 Patient encounter procedure 06/04/2024 9:45 AM EDT Office Visit [facility] [place] [phone] Megan Blank MD [address] [place] [address] [facility] Start: 03-29-2024 End: 03-29-2024 Patient encounter procedure 03/29/2024 9:00 AM EDT Office Visit [facility] [address] [facility] [place] [phone] Megan Blank MD [address] [place], [place] [phone] [facility] Start: 03-12-2024 End: 03-12-[address] [facility] Start: 03-11-2024 End: 03-11-2025 XR Foot - right 3 Views X-ray foot right minimum 3 views Imaging Routine Pain of right lower extremity Expected: 03/11/2024, Expires: 03/11/2025 [employer] Comment on above: Expected: 03/11/2024 , Expires: 03/11/2025 Start: 03-11-2024 End: 03-11-2025 XR Knee - right 3 Views X-ray knee right 3 views Imaging Routine Chronic pain of right knee Pain of right lower extremity Expected: 03/11/2024, Expires: 03/11/2025 [employer] Work Phone: Comment on above: Expected: 03/11/2024 , Expires: 03/11/2025 Start: 03-11-2024 End: 03-11-2025 XR Pelvis 1 or 2 Views X-ray pelvis 1 or 2 views Imaging Routine Arthritis of left sacroiliac joint Expected: 03/11/2024, Expires: 03/11/2025 [employer] Comment on above: Expected: 03/11/2024 , Expires: 03/11/2025 Start: 02-23-2024 End: 02-23-2024 Patient encounter procedure [facility] Start: 01-26-2024 End: 01-25-2025 Echo complete W/O contrast Echo complete W/O contrast Echocardiography Routine Dyspnea on exertion Expected: 01/26/2024, Expires: 01/25/2025 [employer] Comment on above: Expected: 01/26/2024 , Expires: 01/25/2025 Start: 01-26-2024 End: 01-25-2025 US.doppler Lower extremity vein - bilateral Vas venous duplex lwr bilateral Vascular Ultrasound Routine Lymphedema of both lower extremities Localized edema Expected: 01/26/2024, Expires: 01/25/2025 [employer] Work Phone: Comment on above: Expected: 01/26/2024 , Expires: 01/25/2025 Start: 01-02-2024 COVID-19 Vaccine (5 - 2023-24 season) COVID-19 Vaccine ( season) [facility] Start: 01-29-2023 Adult BMI Follow Up Plan Adult BMI Follow Up Plan [facility] Start: 07-18-2020 Influenza vaccination Flu vaccine (S mitzi Ended) [place], [place] Start: 02-11-2020 End: 02-11-2020 Appointment 02/11/2020 [...] 01/18/2020 Appointment Physical [facility] Start: 01-14-2020 End: 01-14-2020 Appointment [...] Visi t (AWV) Annual Wellness Visit (AWV) [email or web address] Phone: Start: 07-18-2019 Influenza vaccination Flu vaccine (# 1) [email or web address] Phone: Start: 2017 Pneumococcal 65+ yea rs Vaccine (1 of 1 - PPSV23) Pneumococcal 65+ years Vaccine (1 of 1 - PPSV23) [email or web address] Phone: Start: 2002 Colon cancer screen colonoscopy Colon cancer screen colonoscopy [email or web address] Phone: Start: 2002 Screening for malignant neoplasm of colon Colon cancer screen colonoscopy [facility] [place] Start: 2002 Shingles Vaccine (1 of 2) Shingles Vaccine (1 of 2) [email or web address] Phone: Start: 1992 Lipid panel Lipid screen [facility], [place] Start: 1992 Lipid screen [facility] screen [facility] [employer] Phone: Start: 1970 Adult BMI Follow Up Plan Adult BMI Follow Up Plan [facility] Start: 1963 DTaP/Tdap/Td vaccine (1 - Tdap) DTaP/Tdap/Td vaccine (1 - Tdap) [email or web address] Phone: Start: 1952 Hepatitis C screen Hepatitis C gordo hunter [facility] Work Phone: Start: 1952 Hepatitis C screening Hepatitis C nm yumiko [facility] [place], [place] Start: 1952 Screening for malignant neoplasm of colon [facility] End: 03-08-2026 CBC W Auto Differential panel - Blood CBC auto differential Lab Routine Iron deficiency anemia, unspecified iron deficiency anemia type 1 Occurrences starting 03/08/2025 until 03/08/2026 [facility] Comment on above: 1 Occurrences starti ng 03/08/2025 until 03/08/2026 End: 03-08-2026 Ferritin [Mass/volume] in Serum or Plasma Ferritin Lab Routine Iron deficiency anemia, unspecified iron deficiency anemia type 1 Occurrences starting 03/08/2025 until 03/08/2026 [email or web address] Phone: Comment on above: 1 Occurrences starti ng 03/08/2025 until 03/08/2026 End: 03-08-2026 Iron and TIBC Iron and TIBC Lab Routine Iron deficiency anemia, unspecified iron deficiency anemia type 1 Occurrences starting 03/08/2025 until 03/08/2026 [facility] Comment on above: 1 Occurrences starti ng 03/08/2025 until 03/08/2026 Immunizations Immunization Date Immunization Notes Care Provider [facility] 08-29-2024 Covid-19, Mrna, Lnp- s, Pf,ajir-sucrose,30 Mcg/0.3ml Megan Blank MD Work Phone: [facility] 08-29-2024 influenza, high dose seasonal, preservative-free Megan Blank MD Work Phone: [facility] 08-29-2024 influenza virus vacc ine, unspecified formulation Jonathon Dahl DPM Work Phone: [facility] 09-01-2023 Covid-19, Mrna, Lnp- s, Pf,jair-sucrose,30 Mcg/0.3ml Fall23 Megan Blank MD Work Phone: [facility] 09-01-2023 Influenza, High-dose , Quadrivalent Megan Blank MD Work Phone: [facility] 09-01-2023 RSV, bivalent, prote in subunit RSVpreF, diluent reconstituted, 0.5 mL, PF Megan Blank MD Work Phone: [facility] 09-01-2023 influenza virus vacc ine, unspecified formulation Asia Olson KELSEA [facility] 07-05-2023 zoster vaccine recombinant Ev Headley [facility] 04-29-2023 Covid-19, Mrna, Lnp- s, Bivalent, Pf, 10 Mcg/0.2 Ml Ev Headley [facility] 04-29-2023 Covid-19, Mrna, Lnp- s, Bivalent, Pf, 30mcg/0.3 ml Ev Headley [facility] 04-29-2023 Moderna Bivalent Newsome ster Vaccination Jonathon Dahl DPM Work Phone: [facility] 04-29-2023 Modern SARS-CoV-2 50mcg/0.5mL Booster Jonathon Dahl DPM Work Phone: [facility] 04-29-2023 zoster vaccine recombinant Ev Headley [facility] 08-07-2022 Influenza, High-dose , Quadrivalent Ev Headley [facility] 08-01-2021 Influenza, High-dose , Quadrivalent Ev Headley [facility] 01-27-2021 COVID-19, mRNA, LNP- S, PF, 30mcg/0.3mL Dose Ev Headley [facility] 01-06-2021 COVID-19, mRNA, LNP- S, PF, 30mcg/0.3mL Dose Ev Headley [facility] 08-18-2020 Influenza Vaccine, Quadrivalent, Adjuvanted Ev Headley [facility] 11-25-2019 influenza virus vacc ine, unspecified formulation Ev Headley [facility] 11-08-2019 zoster vaccine recombinant Ev Headley [facility] 09-15-2019 pneumococcal polysaccharide vaccine, 23 valent Ev Headley [facility] 09-13-2019 influenza virus vacc ine, unspecified formulation Ev Headley [facility] 02-08-2019 tetanus toxoid, redu tea diphtheria toxoid, and acellular pertussis vaccine, adsorbed Ev Headley [facility] 08-08-2018 influenza, injectabl e, quadrivalent, preservative free Ev Headley [facility] 08-08-2018 pneumococcal conjuga te vaccine, 13 valent Ev Headley [facility] 09-29-2017 influenza virus vacc ine, unspecified formulation Ev Headley [facility] 09-06-2010 pneumococcal polysaccharide vaccine, 23 valent Ev Headley [facility] Payers Date Payer Category Payer Medicare [id number] 2023 Medicare (Managed Care) [id number] 2023 Medicare HMO [id number] 2023 Medicare [id number] 2021 Medicare [id number]. [id number] 2014 Medicare MEDICARE MEDICAR E PART A AND B xxxxxxxxxxx 2014-Present [phone] [address] [address] [place] [address] xxxxxxxxxxx [id number] 2014 Medicare [id number] 2014 Unknown MEDICAL M[employer]UAL M EDICAL MUTUAL [address] xxxxxxxxxxxx 2014-Present [phone] [address] [place] [address] xxxxxxxxxxxx [id number] 2014 Unknown [id number] 1952 Unknown [id number] 2.16.840.1.420541.3.579.2. 173 1952 Unknown [id number] 2.16.840.1.320456.3.579.2. 173 1952 Unknown [id number] 2.16.840.1.613176.3.579.2. 173 1952 Unknown [id number] 2.16.840.1.310873.3.579.2. 173 1952 Unknown [id number] 2.16.840.1.201279.3.579.2. 173 1952 Unknown [id number] 2.16.840.1.797635.3.579.2. 173 1952 Unknown [id number] 2.16.840.1.543955.3.579.2. 173 1952 Unknown [id number] 2.16.840.1.589427.3.579.2. 173 1952 Unknown [id number] 2.16.840.1.918528.3.579.2. 173 1952 Unknown [id number] 2.16.840.1.453724.3.579.2. 173 1952 Unknown [id number] 2.16.840.1.863678.3.579.2. 173 1952 Unknown [id number] 2.16.840.1.037901.3.579.2. 173 1952 Unknown [id number] 2.16.840.1.248077.3.579.2. 128 1952 Unknown [id number] 2.16.840.1.171758.3.579.2. 128 1952 Unknown [id number] 2.16.840.1.267677.3.579.2. 128 1952 Unknown [id number] 2.16.840.1.948390.3.579.2. 1282 Unknown [id number] 2..840.1.782444.3.579.2. 1285 1952 Unknown [id number] 2..840.1.847892.3.579.2. 1285 1952 Unknown [id number] 2..840.1.368124.3.579.2. 1285 1952 Unknown [id number] 2..840.1.476779.3.579.2. 1285 1952 Unknown [id number] 2..840.1.577951.3.579.2. 1285 1952 Unknown [id number] 2..840.1.790422.3.579.2. 1285 1952 Unknown [id number] 2.840.1.973841.3.579.2. 1285 1952 Unknown [id number] 2.840.1.438704.3.579.2. 1285 1952 Unknown [id number] 2.840.1.291493.3.579.2. 1285 1952 Unknown [id number] 2.840.1.312316.3.579.2. 1285 1950 Unknown [id number] 2.840.1.153541.3.579.2. 1285 1950 Unknown [id number] 2.840.1.828994.3.579.2. 1285 1950 Unknown [id number] 2.840.1.999695.3.579.2. 1285 1950 Unknown [id number] 2..840.1.501186.3.579.2. 1285 1950 Unknown [id number] 2.840.1.531150.3.579.2. 1285 1950 Unknown [id number] 2.16.840.1.080543.3.579.2. 1285 1950 Unknown [id number] 2..840.1.738261.3.579.2. 1285 1950 Unknown [id number] 2..840.1.621724.3.579.2. 1285 1952 Unknown [id number] 2.840.1.379945.3.579.2. 1285 1950 Unknown [id number] .840.1.924461.3.579.2. 1285 1950 Unknown [id number] .840.1.556149.3.579.2. 1285 1950 Unknown [id number] .0.1.168923.3.579.2. 1285 1950 Unknown [id number] .840.1.512566.3.579.2. 1285 1952 Unknown [id number] .840.1.638845.3.579.2. 1285 1950 Unknown [id number] .840.1.841641.3.579.2. 1285 1952 Unknown [id number] .840.1.024572.3.579.2. 1285 1950 Unknown [id number] .840.1.399664.3.579.2. 1285 1950 Unknown [id number] 2.840.1.671087.3.579.2. 1258 1950 Unknown [id number] 2..840.1.730993.3.579.2. 1258 1950 Unknown [id number] 2.840.1.502974.3.579.2. 1258 1950 Unknown [id number] 2.16.840.1.423370.3.579.2. 9 1950 Unknown [id number] 2.16.840.1.715698.3.579.2. 1258 1950 Unknown [id number] 2.16.840.1.020695.3.579.2. 1258 1950 Unknown [id number] 2.16.840.1.466423.3.579.2. 1258 1950 Unknown [id number] 2.16.840.1.922939.3.579.2. 1258 1950 Unknown [id number] 2.16.840.1.348807.3.579.2. 1258 1950 Unknown [id number] 2.16.840.1.291784.3.579.2. 1259 Social History Date Type Detail Facility Tobacco smoking stat [facility] Unknown if ever smoked [email or web address] Phone: Start: 1950 Sex Assigned At Not on file [facility] [employer] Phone: Start: 09-09-2022 End: 05-12-2023 Tobacco smoking status ALIS Never smoked tobacco [facility] Start: 09-09-2022 End: 05-12-2023 Tobacco use and exposure Smokeless tobacco non-user [facility] Start: 08-12-2024 End: 07-11-2025 Alcoholic beverage intake Ex-drinker (finding) [facility] Start: 08-12-2024 End: 07-11-2025 History of Social function [facility] Start: 08-12-2024 End: 07-11-2025 Tobacco use panel [facility] Start: 10-21-2024 End: 07-25-2025 Alcoholic beverage intake Current non-drinker of alcohol (finding) [facility] Has the [employer] - In[employer] Bilisim, CmyCasa, or water [facility] threatened to shut off services in your home in past 12Mo No [facility] Frequency of Communication with Friends and Family Twice a week [facility] Start: 12-05-2019 Education 14 [facility] Start: 06-22-2015 Sex Male (finding) [facility] Medical Equipment Procedure Code Equipment Code Equipment Origin al Text Equipment Identifier Dates Cmnt Bn Bio 40gm Rpl [id number] - [id number] Start: 07-14-2019 Mesh Pariten Ds [id number] X1 Rpl [id number] Cmt - [id number] Start: 12-15-2019 Cmpt Fem 7 Kn Rt Crcte Rtn Gns - [id number] Start: 07-14-2019 Kn Sn Std Ps Cr Inc Mtn Construct - [id number] Start: 07-14-2019 Oval Harriett Ii Resurfacing Patellar Component [id number] Start: 07-14-2019 Bsplt Tib 5 Rt K n Gnss Ii Npor - [id number] Start: 07-14-2019 Legion Cr Xlpe H [...] of progress towards goal: patient will resume [facility] care for PT/OT Clinical Notes 01-16-2024 to 07-25-2025 Justino Gaspar MD - 07/25/2025 10:15 AM Nannette Dahl DPM - 07/11/2025 11:00 AM EDTPatient InstructionsBo Michelle APRN-STEPHEN - 07/11/2025 9:30 AM EDTPatient Instructions Note Date & Type Note Facility 07-25-2025 History of Present illness Narrative [address] [facility] [address] Patient: Royce Delaney Date of : 1950 [...] 01/06/2023 Performed by Herman Haley DO at [facility] COL[facility] N/A 10/12/2018 Performed by Sumit Mackey MD at [facility] REPAIR HERNIA VENTRAL WITH MESH N/A 12/15/2019 Performed by Ramon Monson DO at [facility]GERY EYE SURGERY JOINT REPLACEMENT Left 2009 dr. booth knee REPLACEMENT TOTAL JOINT RIGHT KNEE Right 07/14/2019 Performed by Chico Sutton MD at [facility] REPLACEMENT TOTAL KNEE Right 04/25/2023 SINUS [...] JUSTINO GASPAR MD documented in this encounter [employer] 07-11-2025 History of Present illness Narrative Images [...] Jonathon Dahl DPM documented in this encounter [facility] 07-11-2025 Instructions Jonathon Dahl DPM - 07/11/2025 11:00 AM EDT As noted documented in this encounter [facility] 07-11-2025 History of Present illness Narrative Images from the original note were not included. [address] [facility] [address] SUBJECTIVE: Patient ID: Ryoce Delaney is a 75 y.o. male. Patient presents to the office with complaints of lymphedema and redness to bilateral lower legs. Has history of lymphedema to bilateral lower legs. He has not been able to use his compression boots and he has lasix but has not been taking that as well. 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 Subjective Patient ID: Royce eDlaney is a 75 y.o. male who presents [...] Jonathon Dahl DPM documented in this encounter [facility] 06-16-2025 Instructions Jonathon Dahl DPM - 06/16/2025 2:15 PM EDT As noted documented in this encounter [facility] 04-28-2025 Miscellaneous Notes Patient wants medication sent to a local pharmacy documented in this encounter [facility] 04-28-2025 Telephone encounter Note Patient wants medication sent to a local pharmacy [facility] 04-27-2025 Miscellaneous Notes Please let him know [...] from the original note were not included. Athletic Equipment Manager spoke with patient about lab results. Let patient know the following from TARUN Aggarwal MD Physician Signed [phone] Please let him know that he remains [...] schedule annual visit. documented in this encounter [employer] 04-27-2025 Telephone encounter Note Please let him know that he remains iron deficient and mildly anemic This can cause RLS symptoms. He told me had been taking oral iron supplements He needs to follow up with his PCP, to determine causes/work up He may benefit from iron infusions/referral to hematology but most appropriate to start with PCP office [employer] Work Phone: 04-27-2025 Telephone encounter Note Images from the original note were not included. Athletic Equipment Manager spoke with patient about lab results. Let patient know the following from TARUN Aggarwal MD Physician Signed [phone] Please let him know that he remains [...] he would follow up with his PCP. [employer] 04-27-2025 Telephone encounter Note Rx sent for oral iron pill. Will recheck after 6 mo. Please schedule annual visit. [employer] Work Phone: 04-06-2025 History of Present illness [...] Jonathon Dahl DPM documented in this encounter [facility] 04-06-2025 Instructions Jonathon Dahl DPM - 04/06/2025 8:30 AM EDT As noted documented in this encounter [facility] 03-09-2025 History of Present illness Narrative Images from the original note were not included. [address] [place] [address] SUBJECTIVE: Patient ID: Royce Delaney is a [...] Chao 03/09/25 1512 documented in this encounter [facility] 03-09-2025 Miscellaneous Notes PAP mask and supplies order with supportive documentation faxed to [facility]. documented in this encounter [facility] 03-09-2025 Telephone encounter Note PAP mask and supplies order with supportive documentation faxed to [facility]. [facility] 03-08-2025 History of Present illness Narrative Images from the original note were not included. Images from the original note were not included. CHIEF COMPLAINT: Royce Delaney is a 75 y.o. male who presents to [facility] in follow-up for [...] chair overnight and fall asleep 1am, reciner Allen Sleepiness Scale: Sitting and Reading: (!) Moderate [...] 01/06/2023 Performed by Herman Haley DO at [facility] N/A 10/12/2018 Performed by Sumit Mackey MD at [facility] REPAIR HERNIA VENTRAL WITH MESH N/A 12/15/2019 Performed by Ramon Monson DO at [facility]GERY EYE SURGERY JOINT REPLACEMENT Left 2009 dr. booth knee REPLACEMENT TOTAL JOINT RIGHT KNEE Right 07/14/2019 Performed by Chico Sutton MD at [facility] REPLACEMENT TOTAL KNEE Right 04/25/2023 SINUS [...] 03/28/23 DIAGNOSIS: ? Obstructive Sleep Apnea (G47.33) (Wvptla=522.0 lbs; BMI=45.2 kg/m2, on 03/28/2023) COMMENTS: This [...] to stop the activity if sleepiness occurs (tap puller at the next safe opportunity if driving). Above plan as discussed with the patient who acknowledged understanding and agreement. GUERDA AGGARWAL MD [facility] [address] [place] [address] documented in this encounter [facility] [employer] [facility] 03-08-2025 Instructions Guerda Aggarwal MD - 03/08/2025 11:00 AM EDT Discussed he may be a candidate for tirzepatide for STEFF and weight loss, if interested advised to discuss with PCP. Continue BiPAP Iron labs - hold iron 2 days before draw documented in this encounter [facility] [employer] 02-28-2025 History of Present illness Narrative Images from the original note were not included. [address] [place] [address] SUBJECTIVE: Patient ID: Royce Delaney is a 74 y.o. male. Patient presents to the office for cellulitis recheck, has lost 5lbs since last visit, swelling and redness has improved. Sore is looking better as well. He is going to call the lymphedema clinic in [place]. Follow-up Pertinent negatives include no abdominal pain, [...] is going to call lymphedema clinic in [place] MARISA Chao 02/28/25 1548 documented in this encounter [employer] 02-24-2025 Miscellaneous Notes PT came in to [...] have any sooner appts at this time. Athletic Equipment Manager called patient offered 03/08/2025 with AD in [place], patient moved appointment to 03/08/2025. documented in this encounter [facility] 02-24-2025 Telephone encounter Note PT came in [...] have any sooner appts at this time. [facility] 02-24-2025 Telephone encounter Note Athletic Equipment Manager called patient offered 03/08/2025 with AD in [place], patient moved appointment to 03/08/2025. [facility] 02-24-2025 History of Present illness Narrative Images [...] Jonathon Dahl DPM documented in this encounter [facility] 02-24-2025 Instructions Jonathon Dahl DPM - 02/24/2025 1:15 PM EDT As noted documented in this encounter [facility] 02-21-2025 History of Present illness Narrative Images from the original note were not included. [address] [place] [address] SUBJECTIVE: Patient ID: Royce Delaney is a [...] joint Chronic bronchitis, unspecified chronic bronchitis type ([facility]) BMI 45.0-49.9, adult ([facility] Pure hypercholesterolemia Essential hypertension Other orders - [...] Chao 02/21/25 1517 documented in this encounter [employer] 02-21-2025 Miscellaneous Notes Patient is concerned his cellulitis is coming back in his leg. He had called and left message with frontend engineer asking for an antibiotic. Athletic Equipment Manager called back to discuss with patient and he is willing to come in to office and be evaluated today. Appointment made for 2:45 today with Bo. documented in this encounter [employer] 02-21-2025 Telephone encounter Note Patient is concerned his cellulitis is coming back in his leg. He had called and left message with frontend engineer asking for an antibiotic. Athletic Equipment Manager called back to discuss with patient and he is willing to come in to office and be evaluated today. Appointment made for 2:45 today with Bo. [employer] Work Phone: 01-26-2025 History of Present illness [...] Jonathon Dahl DPM documented in this encounter [facility] 01-26-2025 Instructions Jonathon Dahl DPM - 01/26/2025 2:30 PM EDT As noted documented in this encounter [facility] 12-29-2024 History of Present illness Narrative Images [...] Jonathon Dahl DPM documented in this encounter [facility] 12-29-2024 Instructions Jonathon Dahl DPM - 12/29/2024 2:30 PM EST As noted documented in this encounter [facility] 12-27-2024 Miscellaneous Notes Patient called stating that his cellulitis is coming back. Patient said that Dr. Blank has instructed him to call the office and he could send him in some medicine to help with this Sent bactrim to ty [facility] 12-27-2024 Telephone encounter Note Patient called stating that his cellulitis is coming back. Patient said that Dr. Blank has instructed him to call the office and he could send him in some medicine to help with this [facility] 12-27-2024 Telephone encounter Note [facility] 12-13-2024 History of Present illness Narrative Images [...] Jonathon Dahl DPM documented in this encounter [facility] 12-13-2024 Instructions Jonathon Dahl DPM - 12/13/2024 1:00 PM EST As noted documented in this encounter [facility] 11-24-2024 History of Present illness Narrative Images [...] Jonathon Dahl DPM documented in this encounter [facility] 11-24-2024 Instructions Jonathon Dahl DPM - 11/24/2024 2:45 PM EST As noted documented in this encounter [facility] 11-08-2024 History of Present illness Narrative Change [...] up with the patient. Thanks [employer]TE [employer] [facility] Chronic Care Nurse Outcomes Manager [phone] documented in this encounter [facility] 11-08-2024 Miscellaneous Notes Bactrim DS 1 bid rx for 10d sent to [facility] for pt - please encourage f/u lymphedema clinic to ER if worse Patient advised, patient verbalized understanding documented in this encounter [facility] 11-08-2024 Telephone encounter Note Bactrim DS 1 bid rx for 10d sent to [facility] for pt - please encourage f/u lymphedema clinic to ER if worse [facility] [employer] 11-08-2024 Telephone encounter Note Patient advised, patient verbalized understanding [facility] [employer] 10-21-2024 History of Present illness Narrative Images from the original note were not included. [address] [place] [address] Subjective: Royce Delaney is a 74 y.o. male who presents for a Medicare Annual Wellness exam. The following portions of the patient's history were reviewed and updated as appropriate: Health Risk Assessment, allergies, past medical history, past surgical history, social history, family history, and immunization history Accompanied by: self History Provided By: self Language and Other Communication Barriers: Primary Language Spoken: Jordanian Highest Level of Education Completed: high school [...] Do you have a durable power of neurology director?: Yes Fall Risk Fall Risk Assessment Completed?: [...] unspecified 05/17/2024 COPD (chronic obstructive pulmonary disease) ([facility]) 05/17/2024 Mechanical loosening of internal right knee prosthetic joint, initial encounter ([facility]) 05/12/2024 Presence of right artificial knee joint [...] (BMI) of 45.0 to 49.9 in adult ([facility]) 04/13/2020 Lymphedema of both lower extremities 12/28/2019 Knee mass, right 10/01/2019 Primary osteoarthritis of right knee 07/14/2019 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 12/17/2018 Adenomatous polyp of transverse colon 10/19/2018 Encounter for colonoscopy due to history of colonic polyp 09/08/2018 Morbid obesity with BMI of 40.0-44.9, adult ([facility]) 01/19/2018 STEFF (obstructive sleep apnea) 11/25/2016 Dyspnea [...] heart beat Low back pain Morbid obesity ([facility]) Obesity STEFF (obstructive sleep apnea) bipap Pain Pneumonia 2014 RLS (restless legs syndrome) Varicella ASA KID Visual impairment glasses Past Surgical History: Procedure Laterality Date ANKLE ARTHROSCOPY Right COLONOSCOPY N/A 01/06/2023 Performed by Herman Haley DO at [facility] N/A 10/12/2018 Performed by Sumit Mackey MD at [facility] REPAIR HERNIA VENTRAL WITH MESH N/A 12/15/2019 Performed by Ramon Monson DO at [facility] SURGERY EYE SURGERY JOINT REPLACEMENT Left 2009 dr. booth knee REPLACEMENT TOTAL JOINT RIGHT KNEE Right 07/14/2019 Performed by Chico Sutton MD at [facility] REPLACEMENT TOTAL KNEE Right 04/25/2023 [...] - 1.20 mg/dL Final METHOD TRACEABLE TO IDCT STANDARD Glucose 07/30/2024 95 65 - 99 [...] - 1.20 mg/dL Final METHOD TRACEABLE TO IDCT STANDARD Glucose 07/31/2024 131 (H) 65 - [...] of both lower extremities BMI 45.0-49.9, adult ([facility]) Other orders - atorvastatin (LIPITOR) 10 mg [...] lymphedema clinic encouraged documented in this encounter [employer] 10-21-2024 Instructions Megan Blank MD - 10/21/2024 [...] services: Not applicable documented in this encounter [facility] 10-07-2024 Evaluation + Plan note Associated Problem(s): Lymphedema of both lower extremities This complex decongestive therapy, regular use of lymphedema wraps, leg elevation weight loss. I also recommended using his lymphedema pump. He will see the lymphedema clinic soon. [facility] 10-07-2024 Miscellaneous Notes Associated Problem(s): Lymphedema of both lower extremities This complex decongestive therapy, regular use of lymphedema wraps, leg elevation weight loss. I also recommended using his lymphedema pump. He will see the lymphedema clinic soon. documented in this encounter [facility] 10-07-2024 History of Present illness Narrative Images [...] not taking: Reported on 10/07/2024) Lactobac comb 6-AFT-yzyzrgtyie (PROBIOTIC & ACIDOPHILUS) 300-250 million cell-mg capsule [...] 01/06/2023 Performed by Herman Haley DO at [facility] N/A 10/12/2018 Performed by Sumit Mackey MD at [facility] REPAIR HERNIA VENTRAL WITH MESH N/A 12/15/2019 Performed by Ramon Monson DO at [facility] SURGERY EYE SURGERY JOINT REPLACEMENT Left 2009 dr. booth knee REPLACEMENT TOTAL JOINT RIGHT KNEE Right 07/14/2019 Performed by Chico Sutotn MD at [facility] REPLACEMENT TOTAL KNEE Right 04/25/2023 SINUS [...] Strain: Low Risk (05/12/2024) Received from [facility] Overall Financial Resource Strain (CARDIA) [...] min Stress: No Stress Concern Present (12/05/2019) [place] of Occupational Health - Occupational Stress Questionnaire Feeling of Stress : Not at all Social Connections: Socially Integrated (12/05/2019) Social Connection and Isolation Panel [NHANES] Frequency of Communication with Friends and Family: Twice a week Frequency of Social Gatherings with Friends and Family: Once a week Attends Cheondoism Services: More than 4 times per year [...] Cesar Valle MD, JOSEPH, RPVI, FSVS, FACS [facility] This note was created with the assistance of a speech recognition program. While intending to generate a timely document that accurately reflects the content of the visit, no guarantee can be provided that every grammatical or spelling mistake has been or will be identified or corrected. Thank you for your understanding. documented in this encounter [facility] 09-28-2024 History of Present illness Narrative Images from the original note were not included. [address] [facility] [id number] SUBJECTIVE: Patient ID: Royce Delaney is a [...] referral to vascular documented in this encounter [facility] 08-12-2024 History of Present illness Narrative Images [...] Jonathon Dahl DPM documented in this encounter [facility] 08-12-2024 Instructions Jonathon Dahl DPM - 08/12/2024 2:45 PM EDT As noted documented in this encounter [facility] 08-09-2024 History of Present illness Narrative Images from the original note were not included. [address] [place] [id number] SUBJECTIVE: Patient ID: Royce Delaney is a [...] Asthenia - [facility] [place] [facility] [place], [place]; Future Other orders - doxycycline (VIBRAMYCIN) 100 mg capsule; Take 1 capsule (100 mg total) by mouth in the morning and 1 capsule (100 mg total) before bedtime. Do all this for 15 days. Follow-up: Stop keflex Doxycycline 100mg bid x30d Dr Garcia referral documented in this encounter [facility] 08-06-2024 Miscellaneous Notes Please call patient, he is having a reaction to a medication given to him at the [place] [address] Pt called and will stop probiotic due to se's documented in this encounter [facility] 08-06-2024 Telephone encounter Note Please call patient, he is having a reaction to a medication given to him at the [place] [address] [facility] 08-06-2024 Telephone encounter Note Pt called and will stop probiotic due to se's [facility] 07-30-2024 History of Present illness Narrative Images from the original note were not included. [address] [facility] [id number] SUBJECTIVE: Patient ID: Royce Delaney is a [...] days of doxycycline documented in this encounter [facility] 07-27-2024 Miscellaneous Notes Patient called and said [...] is going now. documented in this encounter [facility] [employer] 07-27-2024 Telephone encounter Note Patient called and said his right leg/foot is red, swollen, warm to the touch. The skin is hard as a rock per patient. He previously had cellulitis of the leg he said. What do you recommend that he can do? He is no longer going to the lymphedema clinic. [facility] 07-27-2024 Telephone encounter Note Pt has been admitted for cellulitis in the past so would recommend ER eval today! [facility] 07-27-2024 Telephone encounter Note Called patient and he is agreeable to go to the ER. He said he is going now. [facility] 07-02-2024 History of Present illness Narrative Pt here for dressing change to his right lower leg. Old dressing removed. Small amount drainage noted on old dressing. New dressing applied without problems. Pt to return in one week for provider visit. documented in this encounter [facility] 07-02-2024 Instructions Kathi Yoon RN - 07/02/2024 [...] small Serous serous documented in this encounter [facility] 06-29-2024 Miscellaneous Notes Call received form patient asking if he should continue to keep wound covered. Athletic Equipment Manager reviewed wound care orders with patient, and instructed patient to continue dressings as directed at last appointment. Patient voiced understanding documented in this encounter [facility] 06-29-2024 Telephone encounter Note Call received form patient asking if he should continue to keep wound covered. Athletic Equipment Manager reviewed wound care orders with patient, and instructed patient to continue dressings as directed at last appointment. Patient voiced understanding [facility] 06-25-2024 History of Present illness Narrative Images from the original note were not included. Wound Care Progress Note Patient: Royce Delaney Date of : 1950 Chief Compliant: Wound of right leg New patient evaluation SUBJECTIVE/HPI: Royce is a 74 y.o. male who presents to [facility] for evaluation of 1 ulcer(s) [...] Morbid obesity with BMI of 40.0-44.9, adult [place] Encounter for colonoscopy due to history of [...] (BMI) of 45.0 to 49.9 in adult ([facility] Restless leg syndrome Psychophysiological insomnia Chronic midline low back pain without sciatica Weakness of both lower limbs Cervical stenosis of spinal canal Muscle weakness Balance problems Excessive daytime sleepiness Neuralgia Cellulitis of right lower extremity Mechanical loosening of internal right knee prosthetic joint, initial encounter ([facility] Presence of right artificial knee joint S/P total knee arthroplasty, right Failure of outpatient treatment Bilateral leg edema Moderate aortic stenosis Lymphangitis Iron deficiency anemia, unspecified COPD (chronic obstructive pulmonary disease) ([facility] Past Medical History: Diagnosis Date Anemia Arrhythmia Back pain 20 YEARS AGO Chronic pain disorder DJD (degenerative joint disease) Fractures right ribs GERD (gastroesophageal reflux disease) HL (hearing loss) mild HLD (hyperlipidemia) HTN (hypertension) in the past, no current medication Irregular heart beat Low back pain Morbid obesity ([facility] Obesity STEFF (obstructive sleep apnea) bipap Pain Pneumonia 2014 RLS (restless legs syndrome) Varicella ASA KID Visual impairment glasses Past Surgical History: Procedure Laterality Date ANKLE ARTHROSCOPY Right COLONOSCOPY N/A 01/06/2023 Performed by Herman Haley DO at [facility] COLONOSCOPY N/A 10/12/2018 Performed by Sumit Mackey MD at [facility] DAVINCI REPAIR HERNIA VENTRAL WITH MESH N/A 12/15/2019 Performed by Ramon Monson DO at [facility] EYE SURGERY JOINT REPLACEMENT Left 2009 dr. booth knee REPLACEMENT TOTAL JOINT RIGHT KNEE Right 07/14/2019 Performed by Chico Sutton MD at [facility] SINUS SURGERY yrs ago TONSILLECTOMY AND [...] (Active) Wound Image 06/25/24 1400 Site Assessment Yellow;[place];Brown;Moist 06/25/24 144 Cammie-wound Assessment [place];White;Blanchable erythema 06/25/24 1447 Shape blocked 06/25/24 1447 [...] and calf. Short term goal: medical compliance longterm goal: wound closure Patient verbalize ability to [...] Stone APRN, STEPHEN, CWS, BRODY [facility]: [phone] MARISA Fernandez 06/25/24 1539 documented in this encounter [facility] 06-25-2024 Instructions MARISA Fernandez - 06/25/2024 2:00 [...] small Serous serous documented in this encounter [facility] 06-25-2024 History of Present illness Narrative Images from the original note were not included. [address] [facility] [id number] SUBJECTIVE: Patient ID: Royce Delaney [...] extremities - [facility] - [place], [place]; Future Essential hypertension Cellulitis of right lower extremity - clindamycin (CLEOCIN) 150 mg capsule; Take 2 capsules (300 mg total) by mouth 3 (three) times a day for 5 days. - [facility] - [place], [place]; Future Other orders - silver sulfADIAZINE (SILVADENE, SSD) 1 % cream; Apply 1 Application topically in the morning. Follow-up: Wound clinic Clindamycin , SSD cream as previous documented in this encounter [facility] 06-24-2024 Evaluation + Plan note Associated Problem(s): Lymphedema of both lower extremities Complex decongestive therapy. Referral to the lymphedema clinic. [facility] 06-24-2024 Evaluation + Plan note Associated Problem(s): Lymphangitis Continue antibiotics. Complex decongestive therapy and lymphedema clinic referral. [facility] 06-24-2024 Miscellaneous Notes Associated Problem(s): Lymphedema of both lower extremities Complex decongestive therapy. Referral to the lymphedema clinic. Associated Problem(s): Lymphangitis Continue antibiotics. Complex decongestive therapy and lymphedema clinic referral. documented in this encounter [facility] 06-24-2024 History of Present illness Narrative Images [...] 01/06/2023 Performed by Herman Haley DO at [facility] COLONOSCOPY N/A 10/12/2018 Performed by Sumit Mackey MD at [facility] DAVINCI REPAIR HERNIA VENTRAL WITH MESH N/A 12/15/2019 Performed by Ramon Monson DO at [facility] SURGERY EYE SURGERY JOINT REPLACEMENT Left 2009 dr. booth knee REPLACEMENT TOTAL JOINT RIGHT KNEE Right 07/14/2019 Performed by Chico Sutton MD at [facility] SINUS SURGERY yrs ago TONSILLECTOMY AND [...] Strain: Low Risk (05/12/2024) Received from [facility] Overall Financial Resource Strain (CARDIA) [...] min Stress: No Stress Concern Present (12/05/2019) [place] of Occupational Health - Occupational Stress Questionnaire Feeling of Stress : Not at all Social Connections: Socially Integrated (12/05/2019) Social Connection and Isolation Panel [NHANES] Frequency of Communication with Friends and Family: Twice a week Frequency of Social Gatherings with Friends and Family: Once a week Attends Cheondoism Services: More than 4 times per year Active Member of Clubs or Organizations: Yes Attends Club or Organization Meetings: Never Marital Status: Interpersonal Safety: Unknown (05/31/2024) Received from [facility] Humiliation, Afraid, Rape, and Kick [...] of both lower extremities - [facility] [place] [place] - Ambulatory referral to Lymphedema Clinic ([facility]); Future - Ambulatory referral to Wound Care (Non[facility]); Future Cesar Valle MD, JOSEPH, RPVI, FSVS, FACS [facility] This note was created with the assistance of a speech recognition program. While intending to generate a timely document that accurately reflects the content of the visit, no guarantee can be provided that every grammatical or spelling mistake has been or will be identified or corrected. Thank you for your understanding. documented in this encounter [facility] 06-16-2024 Miscellaneous Notes Patient was not sure why Vascular was referred but he says he has a lot of appointments and right now he is not ready to schedule documented in this encounter [facility] 06-16-2024 Telephone encounter Note Patient was not sure why Vascular was referred but he says he has a lot of appointments and right now he is not ready to schedule [facility] 06-15-2024 History of Present illness Narrative Images from the original note were not included. [address] [facility] [id number] SUBJECTIVE: Patient ID: Royce Delaney is a [...] and vascular surgery documented in this encounter [employer] 06-10-2024 Miscellaneous Notes Contact Type: Direct contact - Phone call with patient - general Athletic Equipment Manager spoke with home care nurse and patients right leg is swollen, red, uncomfortable and he does not feel the greatest. PCP does not have any availability today but saw the picture sent by nurse, and patient was advised to go to the ER to be evaluated for blood clot vs infection. Patient verbalized understanding and will go to ER. documented in this encounter [employer] 06-10-2024 Telephone encounter Note Contact Type: Direct contact - Phone call with patient - general Athletic Equipment Manager spoke with home care nurse and patients right leg is swollen, red, uncomfortable and he does not feel the greatest. PCP does not have any availability today but saw the picture sent by nurse, and patient was advised to go to the ER to be evaluated for blood clot vs infection. Patient verbalized understanding and will go to ER. [employer] Work Phone: 06-04-2024 History of Present illness Narrative Images from the original note were not included. [address] [facility] [id number] SUBJECTIVE: Transition of Care (*required) [...] Morbid obesity with BMI of 40.0-44.9, adult ([facility] Restless leg syndrome Weakness of both lower limbs Balance problems Excessive daytime sleepiness Mechanical loosening of internal right knee prosthetic joint, initial encounter ([facility]) Failure of outpatient treatment Bilateral leg edema Moderate aortic stenosis Discharge Specialty: Other *Name of Discharging Facility: [facility] Date of Facility Discharge: Admission 05/25/24 Discharge 05/27/24 Date of Interactive Contact and Name of Head Custodian: 05/28/24954 Unable to reach patient. LVM 05/28/24 1:29 pm Unable to reach patient *Medication Review Completed: No START taking: CEPHalexin (KEFLEX) potassium chloride (K-TAB,KLOR-CON) Medication Reconciliation Questions/Concerns: NA *Follow Up Appointments with Providers: Primary: Megan Blakn MD 06/04/24 0945 Specialty: Specialty: Specialty: Review [...] arthroplasty, right - [facility] - [place], [place]; Future Follow-up: Pt has completed all antibiotics Home ptx to transition to out pt Elevation , salt Pt has been in 3 lymphedema clinic f/u ortho documented in this encounter [facility] 06-04-2024 Miscellaneous Notes Addended by: MEGAN BLANK on: 06/04/2024 10:05 AM Modules accepted: Orders documented in this encounter [facility] 06-04-2024 Note Addended by: MEGAN CROCKER on: 06/04/2024 10:05 AM Modules accepted: Orders [facility] 05-31-2024 Note Orthopedic Surgery Subjective 05/12/2024 - [...] History: Diagnosis Date Anemia Class 3 obesity ([facility]) Colon polyp Diverticulosis Hyperlipidemia Hypertension Lumbosacral spondylosis without myelopathy Lymphedema of both lower extremities Mechanical loosening of internal right knee prosthetic joint, initial encounter ([facility]) OA (osteoarthritis) Onychomycosis RLS (restless legs syndrome) [...] antibiotics prior to dental work or colonoscopy. [facility] Orthopaedic Surgery 05/31/24 11:12 AM Office Visit Attestation GC: I personally saw this patient on the day of the encounter, performed the howard portion(s) of the service and participated in the management and confirm the medical student's documentation. Please note there may be an additional personal documentation from me. Dr. Gretel Chappell MD MRCSEd Configuration Management Specialist orthopedic surgery Adult Reconstruction and Trauma [facility] (more content not included)... [facility] 05-28-2024 Miscellaneous Notes Transition of Care [...] Morbid obesity with BMI of 40.0-44.9, adult ([facility] Restless leg syndrome Weakness of both lower limbs Balance problems Excessive daytime sleepiness Mechanical loosening of internal right knee prosthetic joint, initial encounter ([facility]) Failure of outpatient treatment Bilateral leg edema Moderate aortic stenosis Discharge Specialty: Other *Name of Discharging Facility: [facility] Date of Facility Discharge: Admission 05/25/24 Discharge 05/27/24 Date of Interactive Contact and Name of Head Custodian: 05/28/24 2864 Unable to reach patient. LVM 05/28/24 1:29 pm Unable to reach patient *Medication Review Completed: No START taking: CEPHalexin (KEFLEX) potassium chloride (K-TAB,KLOR-CON) Medication Reconciliation Questions/Concerns: NA *Follow Up Appointments with Providers: Primary: Megan Blank MD 06/04/24 3672 Specialty: Specialty: Specialty: Review of Pending Lab/Diagnostic Tests and Plan for Completion: BMP Assessment and Support of Treatment Regimen Adherence and Medication Management: NA Education Provided by ACN to Support Self-Management, Independent Living and ADLs: NA Communication with Home Health Agencies and Other Services Utilized/Needed by the Patient: NA documented in this encounter [facility] 05-28-2024 Telephone encounter Note Transition of Care [...] Morbid obesity with BMI of 40.0-44.9, adult ([facility] Restless leg syndrome Weakness of both lower limbs Balance problems Excessive daytime sleepiness Mechanical loosening of internal right knee prosthetic joint, initial encounter ([facility]) Failure of outpatient treatment Bilateral leg edema Moderate aortic stenosis Discharge Specialty: Other *Name of Discharging Facility: [facility] Date of Facility Discharge: Admission 05/25/24 Discharge 05/27/24 Date of Interactive Contact and Name of Head Custodian: 05/28/24954 Unable to reach patient. LV 05/28/24 1:29 pm Unable to reach patient *Medication Review Completed: No START taking: CEPHalexin (KEFLEX) potassium chloride (K-TAB,KLOR-CON) Medication Reconciliation Questions/Concerns: NA *Follow Up Appointments with Providers: Primary: Megan Blank MD 06/04/24 9939 Specialty: Specialty: Specialty: Review of Pending Lab/Diagnostic Tests and Plan for Completion: BMP Assessment and Support of Treatment Regimen Adherence and Medication Management: NA Education Provided by ACN to Support Self-Management, Independent Living and ADLs: NA Communication with Home Health Agencies and Other Services Utilized/Needed by the Patient: NA [facility] 05-24-2024 Note Attestation signed by Gretel Chappell [...] internal right knee prosthetic joint, initial encounter ([facility]) OA (osteoarthritis) Onychomycosis RLS (restless legs syndrome) [...] MD Orthopaedic Surgery, Resident PGY-1 Ortho Pager [phone] 05/25/24 3:33 PM May contact the on-call resident with any concerns via the Orthopaedic pager at any time. [facility] 05-18-2024 Miscellaneous Notes Elsa from [facility] PT-she thinks Royce is developing cellulitis lower right leg, he is on a 5 day course of antibiotics, surgeon has been notified but she wanted you to know as well, any questions you can call her [phone] Please call pt - what antibiotic is he on ?, he will run out on Friday?, is it helping? Patient is on Keflex, has 2 more days, not sure if its helping Doxycyclinr rx to [facility] 10d Patient notified of message and verbalizes understanding documented in this encounter [facility] 05-18-2024 Telephone encounter Note Elsa from [facility] PT-she thinks Royce is developing cellulitis lower right leg, he is on a 5 day course of antibiotics, surgeon has been notified but she wanted you to know as well, any questions you can call her [phone] [facility] 05-18-2024 Telephone encounter Note Please call pt - what antibiotic is he on ?, he will run out on Friday?, is it helping? 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 ([facility]) S/P total knee arthroplasty, 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, initial encounter ([facility]) Past Medical History: Diagnosis Date Anemia Class 3 obesity ([facility]) Colon polyp Diverticulosis Hyperlipidemia Hypertension Lumbosacral spondylosis without myelopathy Lymphedema of both lower extremities Mechanical loosening of internal right knee prosthetic joint, initial encounter ([facility]) OA (osteoarthritis) Onychomycosis RLS (restless legs syndrome) [...] Adaptive Equipment: Walker rolling, Cane, Sock aid, Hr Payroll Coordinator, Long-handled shoehorn Home Living Comments: Patient has [...] Level of Function Prior Function Level of [place]: Independent with ADLs and functional transfers, Independent [...] and Coordinated: Yes (more content not included)... 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, initial encounter ([facility]) Past Medical History: Diagnosis Date Anemia Class 3 obesity ([facility]) Colon polyp Diverticulosis Hyperlipidemia Hypertension Lumbosacral spondylosis without myelopathy Lymphedema of both lower extremities Mechanical loosening of internal right knee prosthetic joint, initial encounter ([facility]) OA (osteoarthritis) Onychomycosis RLS (restless legs syndrome) [...] Walker rolling, Cane, Sock aid, Long-handled shoehorn, Hr Payroll Coordinator Home Layout: Laundry in basement, One level (basement 12 steps down but reports children will assist with laundry) Home Access: Other (Comment) (1 VA onto platform without rails, then 2 VA kitchen with haley rails) Bathroom Shower/Tub: Walk-in shower Bathroom Toilet: Standard Bathroom Equipment: Raised toilet seat with rails, Grab bars around toilet, Grab bars in shower, Shower chair with back Prior Level of Function Prior Function Level of [place]: Independent with ADLs and functional transfers, Independent [...] extremity supported, Unilater (more content not included)... [facility] 05-13-2024 Note 05/13/24 1243 Referral Data Referral Source Physician Referral Reason Information Activities of Daily Living Assistive Device Other (Comment) (Has cane, rolling walker, shower chair, raised toilet seat.) Living Arrangement (Current/Prior to Hospitalization) Private residence (1 story home w/ 3 steps to enter.) Ambulation Independent Dressing Independent Feeding Independent Behavior Oriented Communication Talks;Understands speaking;Understands Jordanian Discharge Planning Support Systems Spouse/significant other;Children (Lives w/ who has MS and unable to assist, has 2 local children who are supportive.) Type of Residence Private residence Will patient need Precert for Post Acute needs? No Patient's goal for discharge Home with [facility]. Does the patient need discharge transport arranged? No Screened pt at bedside who is alert/ox4. Pt lives at home with his who has MS and is unable to assist, however, he also has 2 adult children that are both local/supportive. OT/PT evaluated and recommended C and pt is agreeable to this and would like to try for [facility] as his is already active with them. Advised pt it may come down to insurance and he stated he does not have a preference in alternative providers if needed. Referrals sent to [facility] and [facility]. UPDATE 1PM- [facility] accepted. Updated the AVS and sent via Careport as pt's ready for discharge. [facility] 05-13-2024 Note 05/13/24 0904 Admission Assessment [...] Status Interested Does the patient have a sample case porter assigned to them through their insurance? No Living Arrangement (Current/Prior to Hospitalization) Private residence (Lives with ) Does the patient have history of HHC or SNF? Yes [facility] Assistive Device Walker;Cane;Grab bars;Raised toilet seat Patient's [...] caregiver for his . Reports hx of [facility]. [facility] 05-13-2024 Note Attestation signed by Gretel [...] 2, EXCEPT PATELLA WITH INTRAOP FROZEN SECTIONS [id number] - RI REVJ TOT KNEE ARTHRP FEM&ENTIRE TIBIAL COMPONE [...] any questions or concerns Lyle Stockton, MS4 [facility] 05/13/24 6:25 AM Dwayne Sparrow MD Orthopedic Surgery, PGY-2 Pager: [phone] 05/13/24 7:33 AM [facility] 05-12-2024 Note Patient: Royce fournier Procedure Summary Date: 05/12/24 Room / Location: [facility] OPERATING ROOM 02 / [facility] Operating Room Anesthesia Start: 1108 Anesthesia Stop: 1524 Procedure: REVISION, TOTAL ARTHROPLASTY, KNEE,STAGE 2, EXCEPT PATELLA WITH INTRAOP FROZEN SECTIONS (Right: Knee) Diagnosis: Mechanical loosening of internal right knee prosthetic joint, initial encounter (CMS/HCC) Instability of internal right knee prosthesis, initial encounter ([facility]) Class 3 obesity with alveolar hypoventilation and body mass index (BMI) of 40.0 to 44.9 in adult, unspecified whether serious comorbidity present (CMS/HCC) (Mechanical loosening of internal right knee prosthetic joint, initial encounter ([facility]) [T84.032A]) Surgeons: Gretel Chappell MD Responsible Provider: [...] per anesthesia protocol. No notable events documented. [facility] 05-12-2024 Note Patient: Royce fournier Procedure Summary Date: 05/12/24 Room / Location: [facility] OPERATING ROOM 02 / [facility] Operating Room Anesthesia Start: 1108 Anesthesia Stop: Procedure: REVISION, TOTAL ARTHROPLASTY, KNEE,STAGE 2, EXCEPT PATELLA WITH INTRAOP FROZEN SECTIONS (Right: Knee) Diagnosis: Mechanical loosening of internal right knee prosthetic joint, initial encounter ([facility]) Instability of internal right knee prosthesis, initial encounter ([facility]) Class 3 obesity with alveolar hypoventilation and body mass index (BMI) of 40.0 to 44.9 in adult, unspecified whether serious comorbidity present ([facility]) (Mechanical loosening of internal right knee prosthetic joint, initial encounter ([facility]) [T84.032A]) Surgeons: Gretel Chappell MD Responsible Provider: Talita Kaminski MD Anesthesia Type: general, regional ASA Status: 3 Anesthesia Post Transport Note Transport to: PACU O2 Route: face mask Oxygen Flow (L/min): 8 Airway adjunct: nasal airway Patient Monitor: direct observation Transport: uneventful Patient condition is: stable [facility] 05-12-2024 Note Peripheral Block Patient location during procedure: OR Start time: 05/12/2024 2:55 PM End time: 05/12/2024 3:13 PM Reason for block: at surgeon's request and post-op pain management Staffing Performed: resident/RESOURCE PARAPROFESSIONAL/CAA Anesthesiologist: Talita Kaminski MD Resident/RESOURCE PARAPROFESSIONAL: Ollie Nielsen MD Preanesthetic Checklist Completed: patient identified, IV checked, site marked, risks and benefits discussed, surgical consent, monitors and equipment checked, pre-op evaluation and timeout performed Peripheral Block Patient position: supine Prep: ChloraPrep Patient monitoring: heart rate, continuous pulse ox and event decorator and designer Block type: adductor canal block Laterality: right [...] rate change: no Slow fractionated injection: yes [facility] 05-12-2024 Note Airway Date/Time: 05/12/2024 11:16 AM Urgency: elective Airway not difficult General Information and Staff Patient location during procedure: OR Anesthesiologist: Talita Kaminski MD Resident/RESOURCE PARAPROFESSIONAL/CAA: JAMES Ramos Performed: resident/RESOURCE PARAPROFESSIONAL/CAA and other anesthesia staff Learner assisted: Cornel [...] 23 Number of attempts at approach: 1 [facility] 05-12-2024 Note Patient: Royce fournier Procedure Information Date/Time: 05/12/24 1145 Procedure: REVISION, TOTAL ARTHROPLASTY, KNEE, ALL COMPONENTS STAGE 1 VS. STAGE 2 WITH INTRAOP FROZEN SECTIONS (Right: Knee) - JULIA IN, PLAN FOR S&N REVISION, REP NOTIFIED 05/03 ZENAIDA Location: [facility] OPERATING ROOM 02 / [facility] Operating Room Surgeons: Gretel Chappell MD [...] with attending and CAA. Additional Equipment Requests [facility] 05-03-2024 Note Medications to take AM day of procedure with sips water only: NONE Medication Hold instructions: NSAIDs (Motrin,Aleve): 5 days prior to procedure Vitamins/Supplements: 5 days prior to procedure IF YOU ARE GOING HOME AFTER YOUR SURGERY OR PROCEDURE, FOR YOUR SAFETY, YOUR SURGERY WILL BE CANCELLED IF BOTH OF THE FOLLOWING ARE NOT AVAILABLE: An adult coach driver over the age of 18, that [...] lenses. Do not wear perfume, make-up, nail anguillan, or lotions on the day of your [...] need to make any changes, please call [phone]. Notify your surgeon if you develop any illness such as a cold, cough, fever, sore throat or vomiting between now and your surgery. Thank you for entrusting us with your care. [facility] Surgical Services Team [facility] 04-27-2024 Note I spoke to the [...] will decide after surgery if he wants [facility] or outpatient therapy. [facility] 04-20-2024 Miscellaneous Notes Pt has fasting labs to do from October and I added an EKG, we can use appt from 03/10 and donot need appt , but I need pt to do fasting labs and EKG Patient notified to complete testing and we will call him with results/clearance documented in this encounter [facility] 04-20-2024 Telephone encounter Note Pt has fasting labs to do from October and I added an EKG, we can use appt from 03/10 and donot need appt , but I need pt to do fasting labs and EKG [facility] 04-20-2024 Telephone encounter Note Patient notified to complete testing and we will call him with results/clearance [facility] 04-19-2024 Note Orthopedic Surgery Subjective New Patient [...] performed by Dr. Chico Sutton MD at [facility] 5 years ago on 14 July 2019. [...] visit S/p bilateral (more content not included)... [facility] 03-11-2024 History of Present illness Narrative Images from the original note were not included. [address] [facility] [address] SUBJECTIVE: Patient ID: Royce [...] pelvis Ortho referral documented in this encounter [facility] 02-19-2024 Miscellaneous Notes Patient requesting refill of Atorvastatin, Omeprazole and Pramipexole to [facility] documented in this encounter [facility] 02-19-2024 Telephone encounter Note Patient requesting refill of Atorvastatin, Omeprazole and Pramipexole to [facility] 01-26-2024 History of Present illness Narrative Images from the original note were not included. [address] [facility] [address] SUBJECTIVE: Patient ID: Royce [...] 40mg 1 qd [facility] Miscellaneous Notes [facility] Telephone encounter Note Refill [facility] Evaluation note Diagnosis Onychomycosis- Primary Dermatophytosis of nail Onychodystrophy Other specified disease of nail Pain around toenail, right foot Pain around toenail, left foot documented in this encounter [facility]* Diagnosis Lymphangitis- Primary Lymphedema of both lower extremities Lymphedema of both lower extremities- Primary Essential hypertension- Primary Unspecified essential hypertension Pure hypercholesterolemia [facility] Diagnosis Plantar wart, left foot- Primary Plantar wart Acquired keratoderma Left foot pain Pain in soft tissues of limb Difficulty walking Difficulty in walking documented in this encounter [facility]* Diagnosis Chronic pain of right knee- Primary Pain of right lower extremity Lymphedema of both lower extremities Arthritis of left sacroiliac joint [facility]* Diagnosis Lymphedema of both lower extremities [facility]* Diagnosis Lymphedema of both lower extremities- Primary Localized edema Edema Dyspnea on exertion Other dyspnea and respiratory abnormality documented [facility]* Diagnosis Essential hypertension- Primary Unspecified essential hypertension Pure hypercholesterolemia Lymphedema of both lower extremities Cellulitis of right lower extremity S/P total knee arthroplasty, right documented in this encounter [facility]* Diagnosis Lymphedema of both lower extremities- Primary Essential hypertension Unspecified essential hypertension Pure hypercholesterolemia Cellulitis of right lower extremity documented in this encounter [facility]* Diagnosis Lymphedema of both lower extremities- Primary Essential hypertension Unspecified essential hypertension Cellulitis of right lower extremity documented in this encounter [facility]* Diagnosis Lymphangitis- Primary Lymphedema of both lower extremities documented in this encounter [facility]* Diagnosis Blister of right lower extremity without infection, initial encounter- Primary Cellulitis of right lower extremity Lymphedema of both lower extremities documented in this encounter [facility]* Diagnosis Cellulitis of right lower extremity- Primary [facility]* Diagnosis Cellulitis of right lower extremity- Primary Lymphedema of both lower extremities [facility]* Diagnosis Cellulitis of right lower leg- Primary Chronic bronchitis, unspecified chronic bronchitis type ([facility]) Essential hypertension Unspecified essential hypertension Pure hypercholesterolemia Asthenia Other malaise and fatigue documented in this encounter [facility]* Diagnosis Lymphangitis- Primary Lymphedema of both lower extremities Cellulitis of right lower leg- Primary Lymphedema of both lower extremities [facility]* Diagnosis Lymphangitis- Primary Lymphedema of both lower extremities Lymphedema of both lower extremities- Primary [facility]* Diagnosis Lymphangitis- Primary Lymphedema of both lower extremities Lymphedema of both lower extremities- Primary Routine general medical examination at a health care facility- Primary Essential hypertension Unspecified essential hypertension Pure hypercholesterolemia Lymphedema of both lower extremities BMI 45.0-49.9, adult ([facility]) documented in this encounter [facility]* Diagnosis Lymphangitis- Primary Lymphedema of both lower extremities Lymphedema of both lower extremities- Primary Lymphedema of both lower extremities- Primary Cellulitis of right lower leg Arthritis of left sacroiliac joint Chronic bronchitis, unspecified chronic bronchitis type ([facility]) BMI 45.0-49.9, adult ([facility]) Pure hypercholesterolemia Essential hypertension Unspecified essential hypertension documented in this encounter [facility]* Diagnosis Lymphangitis- Primary Lymphedema of both lower extremities Lymphedema of both lower extremities- Primary Lymphedema of both lower extremities- Primary Cellulitis of right lower leg documented in this encounter [facility]* Diagnosis Lymphangitis- Primary Lymphedema of both lower extremities Lymphedema of both lower extremities- Primary Lymphedema of both lower extremities- Primary Cellulitis of right lower leg documented in this encounter [facility]* Diagnosis Lymphangitis- Primary Lymphedema [...] 49.9 in adult documented in this encounter [facility]* Diagnosis Lymphangitis- Primary Lymphedema of both lower extremities Lymphedema of both lower extremities- Primary Lymphedema of both lower extremities- Primary Cellulitis of right lower leg [facility]* Diagnosis Lymphangitis- Primary Lymphedema of both lower extremities Lymphedema of both lower extremities- Primary Nonrheumatic aortic valve stenosis- Primary documented in this encounter [facility]* Diagnosis Bursitis of left foot- Primary Acquired keratoderma Left foot pain Pain in soft tissues of limb Difficulty walking Difficulty in walking documented in this encounter [facility]* Diagnosis Lymphangitis- Primary Lymphedema of both lower extremities Lymphedema of both lower extremities- Primary Other iron deficiency anemia- Primary [facility]* Diagnosis Lymphangitis- Primary Lymphedema of both lower extremities Lymphedema of both lower extremities- Primary Other iron deficiency anemia documented in this encounter [facility]* Diagnosis Onychomycosis- Primary Dermatophytosis of nail Onychodystrophy Other specified disease of nail Pain around toenail, right foot Pain around toenail, left foot documented in this encounter [facility] HealthcareEvaluation note* Diagnosis Lymphangitis- Primary Lymphedema of both lower extremities Lymphedema of both lower extremities- Primary Lymphedema of both lower extremities- Primary Cellulitis of right lower leg Cellulitis of left lower leg [facility]* Diagnosis Lymphangitis- Primary Lymphedema of both lower extremities Lymphedema of both lower extremities- Primary Cellulitis of right lower leg- Primary Cellulitis of left lower leg Lymphedema of both lower extremities documented in this encounter [facility]* Diagnosis Lymphangitis- Primary Lymphedema of both lower extremities Lymphedema of both lower extremities- Primary Insomnia due to medical condition- Primary Organic insomnia, unspecified documented in this encounter [facility] SystemInstructionsNot on filedocumented in this encounter [facility] SystemInstructions* Attachments The following attachments cannot be sent through Care Everywhere. * Chronic Knee Pain (Jordanian) [facility]ructionsNot on file documented in this [facility] SystemInstructionsNot on file documented in this [facility] SystemInstructionsNot on file documented in this [facility] SystemInstructionsNot on file documented in this [facility] SystemInstructionsNot on file documented in [facility] SystemInstructions* Attachments The following attachments cannot be sent through Care Everywhere. * Lymphedema (Jordanian) documented in [facility] SystemInstructionsNot on file [facility] SystemInstructionsNot on file documented in this [facility] SystemInstructionsNot on file documented in this [facility] SystemInstructionsNot on file documented in [facility] SystemInstructionsNot on file documented in this [facility] SystemInstructionsNot on file documented in this [facility] SystemInstructionsNot on file documented in this [facility] SystemInstructions* Attachments The following attachments cannot be sent through Care Everywhere. * Cellulitis (Skin Infection) Discharge Instructions, Adult (Jordanian) [facility]* Attachments The following attachments cannot be sent through Care Everywhere. * Weakness ED (Jordanian) * Generalized Weakness (Jordanian) [facility] SystemInstructionsNot on file documented in this [facility] SystemInstructionsNot on file documented in this [facility] SystemInstructions* Attachments The following attachments cannot be sent through Care Everywhere. * Cellulitis (Skin Infection) Discharge Instructions, Adult (Jordanian) documented in this [facility] SystemInstructions* Attachments The following attachments cannot be sent through Care Everywhere. * Cellulitis (Skin Infection) Discharge Instructions, Adult (Jordanian) documented in this [facility] SystemInstructions* Attachments The following attachments cannot be sent through Care Everywhere. * Cellulitis (Skin Infection) Discharge Instructions, Adult (Jordanian) documented in [facility] SystemInstructionsNot on file documented in [facility] SystemInstructionsNot on file documented in this [facility] SystemInstructionsNot on file documented in this [facility] SystemInstructions* Attachments The following attachments cannot be sent through Care Everywhere. * Cellulitis (skin infection) in adults Discharge instructions (Jordanian) documented in this [facility] SystemInstructionsNot on file documented in this [facility] SystemReason for referral (narrative)* Consultation (Routine) - Pending Review Specialty Diagnoses / Procedures Referred By Contact Referred To Contact Orthopedic Surgery / MED-SURG/ORTHOPEDICS Diagnoses Chronic pain of right knee Pain of right lower extremity Arthritis of left sacroiliac joint Megan Blank MD [address] [place] [address] Lesley Booth Jr., [address] [address] Referral ID Status Reason Start Date Expiration Date Visits Requested Visits Authorized [id number] Pending Review Specialty Services Required 03/11/2024 03/11/2025 1 1 [facility] for referral (narrative)* Consultation (Routine) - Authorized Specialty Diagnoses / Procedures Referred By Cici fournier Referred To Contact Diagnoses Lymphedema of both lower extremities Megan Blank MD [address] [place] [address] [address] Referral ID Status Reason Start Date Expiration Date V isits Requested Visits Authorized [id number] Authorized 01/26/2024 01/25/2025 1 1 Scheduling Instructions [phone], [phone] * Cardiology (Routine) - Authorized Specialty Diagnoses / Procedures Referred By Cici fournier Referred To Contact Diagnoses Dyspnea on exertion Procedures Echo complete W/O contrast Megan Blank MD [address] [place] [address] [facility] [address] [place] [address] Phone: [phone] Referral ID Status Reason Start Date Expiration Date V isits Requested Visits Authorized [id number] Authorized 01/26/2024 04/24/2024 1 1 * Vascular (Routine) - Pending Review Specialty Diagnoses / Procedures Referred By Cici fournier Referred To Contact Diagnoses Lymphedema of both lower extremities Localized edema Procedures Vas venous duplex lwr bilateral Megan Blank MD [address] [place] [address] [facility] [address] [place] [address] Phone: [phone] Referral ID Status Reason Start Date Expiration Date V isits Requested Visits Authorized [id number] Pending Review 01/26/2024 01/25/2025 1 1 [facility] for referral (narrative)* Consultation (Routine) - Authorized Specialty Diagnoses / Procedures Referred By Contac t Referred To Contact Rehabilitation Diagnoses S/P total knee arthroplasty, right Megan Blank MD [address] [place] [address] [facility] [address] [place] [address] Referral ID Status Reason Start Date Expiration Date Visits Requested Visits Authorized [id number] Authorized Specialty Services Required 06/04/2024 12/05/2024 12 12 [facility] for referral (narrative)* Consultation (Routine) - Authorized Specialty Diagnoses / Procedures Referred By Cici t Referred To Contact Vascular Surgery Diagnoses Lymphedema of both lower extremities Megan Blank MD [address] [place] [place] [address] Cesar Valle MD [address] [place] [address] Referral ID Status Reason Start Date Expiration Date Visits Requested Visits Authorized [id number] Authorized Specialty Services Required 06/15/2024 06/15/2025 1 1 * Consultation (Routine) - Authorized Specialty Diagnoses / Procedures Referred By Contac t Referred To Contact Diagnoses Lymphedema of both lower extremities Megan Blank MD [address] [place] [address] [address] Referral ID Status Reason Start Date Expiration Date V isits Requested Visits Authorized [id number] Authorized 06/15/2024 06/15/2025 1 1 [facility] for referral (narrative)* Consultation (Routine) - Pending Review Specialty Diagnoses / Procedures Referred By Contac t Referred To Contact Wound Care Diagnoses Lymphedema of both lower extremities Cellulitis of right lower extremity Megan Blank MD [address] [place] [address] [facility] [address] [place] [address] Referral ID Status Reason Start Date Expiration Date Visits Requested Visits Authorized [id number] Pending Review Specialty Services Required 06/25/2024 06/25/2025 1 1 [facility] for referral (narrative)* Consultation (Routine) - Pending Review Specialty Diagnoses / Procedures Referred By Contac t Referred To Contact Wound Care Diagnoses Lymphedema of both lower extremities Cesar Claire MD [address], [address] [address] [facility] [address] [place] [address] Referral ID Status Reason Start Date Expiration Date Visits Requested Visits Authorized [id number] Pending Review Specialty Services Required 06/24/2024 06/24/2025 1 1 * Consultation (Routine) - Pending Review Specialty Diagnoses / Procedures Referred By Contac t Referred To Contact Diagnoses Lymphedema of both lower extremities Cesar Claire MD [address], [address] [place] [address] Referral ID Status Reason Start Date Expiration Date V isits Requested Visits Authorized [id number] Pending Review 06/24/2024 06/24/2025 1 1 [facility] Consultation (Routine) - Authorized Specialty Diagnoses / Procedures Referred By Cici fournier Referred To Contact Neurology Diagnoses Megan Atkins MD [address] [facility] [place] [address] Maury Garcia MD [address] [facility] [address] [place] [address] Referral ID Status Reason Start Date Expiration Date Visits Requested Visits Authorized [id number] Authorized Specialty Services Required 08/09/2024 08/09/2025 1 1 [facility] History of Present Illness * Yessica Oh - 12/24/2019 2:15 PM EST [facility] Inpatient/Observation/Outpatient Rehabilitation Date: 12/24/2019 Patient Name: Royce [...] Saucedo, PT - 12/28/2019 1:45 PM EST [facility] Outpatient Physical Therapy Daily Note Patient: Royce Delaney : 1950 [facility] #: [id number] Referring Practitioner: Dr. 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 2: Pt will demonstrate and decreaed in BLE girth measurements by 2-3cm in order to increae ambulation tolerance []Met []Partially met []Not met longterm goal 3: Pt will report 70% improvement in symptoms []Met []Partially met []Not met []Met []Partially met []Not met []Met []Partially met []Not met Minutes Tracking: Time In: 1344 Time Out: 1422 Minutes: 38 Nelda Saucedo PT, DPT Date: 12/28/2019 documented in this encounter* Nelda Saucedo, PT - 01/04/2020 2:00 PM EST [facility] Outpatient Physical Therapy Daily Note Patient: Royce Delaney : 1950 CSN #: [id number] Referring Practitioner: Dr. 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 2: Pt will demonstrate and decreaed in BLE girth measurements by 2-3cm in order to increae ambulation tolerance []Met []Partially met []Not met longterm goal 3: Pt will report 70% improvement in symptoms []Met []Partially met []Not met []Met []Partially met []Not met []Met []Partially met []Not met Minutes Tracking: Time In: 1356 Time Out: 1436 Minutes: 40 Nelda Saucedo PT, DPT Date: 01/04/2020 documented in this encounter* Nelda Saucedo, PT - 01/11/2020 1:15 PM EST [facility] Outpatient Physical Therapy Daily Note Patient: Royce Delaney : 1950 CSN #: [id number] Referring Practitioner: Dr. John Christie Referral Date : 12/09/19 Date: 01/11/2020 Diagnosis: R LE lymphedema I89.0 Treatment Diagnosis: BLE edema Onset Date: 12/09/19 PT Insurance Information: Medicare/[employer] 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 2: Pt will demonstrate and decreaed in BLE girth measurements by 2-3cm in order to increae ambulation tolerance- progressing []Met []Partially met []Not met longterm goal 3: Pt will report 70% improvement in symptoms []Met []Partially met []Not met []Met []Partially met []Not met []Met []Partially met []Not met Minutes Tracking: Time In: 1306 Time Out: 1421 Minutes: 75 Nelda Saucedo PT, DPT Date: 01/11/2020 documented in this encounter* Yessica Oh - 01/18/2020 11:00 AM EST [facility] Inpatient/Observation/Outpatient Rehabilitation Date: 01/18/2020 Patient Name: Royce [...] Jennifer Bonds - 01/24/2020 9:30 AM EDT [facility] Inpatient/Observation/Outpatient Rehabilitation Date: 01/24/2020 Patient Name: Royce [...] Saucedo, PT - 01/14/2020 2:15 PM EST [facility] Outpatient Physical Therapy Daily Note Patient: Royce Delaney : 1950 [facility] #: [id number] Referring Practitioner: Dr. 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 1: Pt will be safe and independent with his POC []Met []Partially met []Not met longterm goal 2: Pt will demonstrate and decreaed in BLE girth measurements by 2-3cm in order to increae ambulation tolerance- progressing []Met []Partially met []Not met 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 John Christie Referral Date : 12/09/19 Date: 12/21/2019 Diagnosis: R LE lymphedema I89.0 Treatment Diagnosis: BLE edema Onset Date: 12/09/19 PT Insurance Information: Medicare/[employer] 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 1: Pt will be safe and independent with his POC []Met []Partially met []Not met longterm goal 2: Pt will demonstrate and decreaed in BLE girth measurements by 2-3cm in order to increae ambulation tolerance []Met []Partially met []Not met longterm goal 3: Pt will report 70% improvement in symptoms []Met []Partially met []Not met []Met []Partially met []Not met []Met []Partially met []Not met Minutes Tracking: Time In: 1444 Time Out: 1536 Minutes: 52 Nelda Saucedo PT, DPT Date: 12/21/2019 documented in this encounter Advance Directives No Advanced Directives Records FoundDocuments on File Type Date Recorded 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 Advance Directives and Living Will Power of Distribution 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 Date Activated Date Inactivated Comments 07/30/2024 7:52 [...] extremity Procedures Opticell Alginate AG Jo Stone, ENVIRONMENTAL RESEARCH PROJECT MANAGER-ESCALATOR OPERATOR [address] [place] [address] Referral ID Status Reason Start Date Expiration Date V isits Requested Visits Authorized [id number] Pending Review 07/02/2024 07/02/2025 1 1 Additional Source Comments (unrecognized sect ion and content) No Status Records FoundNo Status Records FoundNo Status Records FoundNo Status Records FoundNo Status Records FoundNo Status Records Found INFORMATION SOURCE (unrecogn ized section and content) DATE CREATED AUTHOR 04/28/2020 Kalpana Ervin [facility] DATE CREATED AUTHOR AUTHOR'S ORGANIZ ATION 06/07/2024 [facility] DATE CREATED AUTHOR AUTHOR'S ORGANIZ ATION 07/18/2024 [facility] DATE CREATED AUTHOR AUTHOR'S ORGANIZ ATION 04/29/2025 [facility] DATE CREATED AUTHOR AUTHOR'S ORGANIZ ATION 07/26/2025 [facility] DATE CREATED AUTHOR AUTHOR'S ORGANIZ ATION 08/10/2025 [facility] EPIC Reason for Visit (unrecogniz [...] Surgery Diagnoses Lymphedema of both lower extremities eMgan Blank MD [address] [place] [address] Cesar Valle MD [address] [place] [address] Referral ID Status Reason Start Date Expiration Date V isits Requested Visits Authorized [id number] Closed Specialty Services Required 06/15/2024 06/15/2025 1 1 Reason Comments Wound Check Specialty Diagnoses / Procedures Referred By Cici fournier Referred To Contact Wound Care Diagnoses Lymphedema of both lower extremities Cellulitis of right lower extremity Megan Blank MD [address] [place] [address] [facility] Op [address] [place] [address] Referral ID Status Reason Start Date Expiration Date Visits Requested Visits Authorized [id number] Pending Review Specialty Services Required 06/25/2024 06/25/2025 [...] Care Teams (unrecognized sec tion and content) Roof Bolting Coal Miner Relationship Specialty Start Date End Date Megan Blank MD [address] [place] [address] PCP - General Family Medicine 05/09/23 Roof Bolting Coal Miner Relationship Specialty Start Date End Date Megan Blank MD [address] [place] [address] PCP - General Family Medicine 05/25/24 PETROS PierreN, RN [facility] Nurse - [facility] 04/07/24 Roof Bolting Coal Miner Relationship Specialty Start Date End Date Megan Blank MD [address] [place] [address] PCP - General Family Medicine 05/09/23 Roof Bolting Coal Miner Relationship Specialty Start Date End Date Megan Blank MD [address] [place] [address] PCP - General Family Medicine 05/09/23 Roof Bolting Coal Miner Relationship Specialty Start Date End Date Megan Blank MD [address] [place] [address] PCP - General Family Medicine 05/09/23 Roof Bolting Coal Miner Relationship Specialty Start Date End Date Megan Blank MD [address] [place] [address] PCP - General Family Medicine 05/14/23 Roof Bolting Coal Miner Relationship Specialty Start Date End Date Megan Blank MD [address] [place] [address] PCP - General Family Medicine 05/25/24 ALEJANDRA Pierre, RN [facility] Nurse - [facility] 04/07/24 Roof Bolting Coal Miner Relationship Specialty Start Date End Date Megan Blank MD [address] [place] [address] PCP - General Family Medicine 05/25/24 ALEJANDRA Pierre, RN [facility] Nurse - [facility] 04/07/24 Roof Bolting Coal Miner Relationship Specialty Start Date End Date Megan Blank MD [address] [place] [address] PCP - General Family Medicine 05/14/23 Eric Pineda RN [facility] Nurse - [facility] 04/07/24 Roof Bolting Coal Miner Relationship Specialty Start Date End Date Megan Blank MD [address] [place] [address] PCP - General Family Medicine 05/14/23 Eric Pineda RN [facility] Nurse - [facility] 04/07/24 Roof Bolting Coal Miner Relationship Specialty Start Date End Date Megan Blank MD [address] [place] [address] PCP - General Family Medicine 05/14/23 Roof Bolting Coal Miner Relationship Specialty Start Date End Date Megan Blank MD [address] [place] [address] PCP - General Family Medicine 05/25/24 Eric Pineda RN [facility] Nurse - [facility] 04/07/24 Roof Bolting Coal Miner Relationship Specialty Start Date End Date Megan Blank MD [address] [place] [address] PCP - General Family Medicine 05/25/24 Eric Pineda RN [facility] Nurse - [facility] 04/07/24 Roof Bolting Coal Miner Relationship Specialty Start Date End Date Megan Blank MD [address] [place] [address] PCP - General Family Medicine 05/25/24 Eric Pineda RN [facility] Nurse - [facility] 04/07/24 Roof Bolting Coal Miner Relationship Specialty Start Date End Date Megan Blank MD [address] [place] [address] PCP - General Family Medicine 05/25/24 Eric Pineda RN [facility] Nurse - [facility] 04/07/24 Roof Bolting Coal Miner Relationship Specialty Start Date End Date Megan Blank MD [address] [place] [address] PCP - General Family Medicine 05/25/24 Eric Pineda RN [facility] Nurse - [facility] 04/07/24 Roof Bolting Coal Miner Relationship Specialty Start Date End Date Megan Blank MD [address] [place] [address] PCP - General Family Medicine 05/25/24 Eric Pineda RN [facility] Nurse - [facility] 04/07/24 Roof Bolting Coal Miner Relationship Specialty Start Date End Date Megan Blank MD [address] [place] [address] PCP - General Family Medicine 05/25/24 Eric Pineda RN [facility] Nurse - [facility] 04/07/24 Roof Bolting Coal Miner Relationship Specialty Start Date End Date Megan Blank MD [address] [place] [address] PCP - General Family Medicine 05/25/24 Eric Pineda RN [facility] Nurse - [facility] 04/07/24 Roof Bolting Coal Miner Relationship Specialty Start Date End Date Megan Blank MD [address] [place] [address] PCP - General Family Medicine 05/14/23 Roof Bolting Coal Miner Relationship Specialty Start Date End Date Megan Blank MD [address] [place] [address] PCP - General Family Medicine 05/25/24 Eric Pineda RN [facility] Nurse - [facility] 04/07/24 Roof Bolting Coal Miner Relationship Specialty Start Date End Date Megan Blank MD [address] [place] [address] PCP - General Family Medicine 05/25/24 Eric Pineda RN [facility] Nurse - [facility] 04/07/24 Roof Bolting Coal Miner Relationship Specialty Start Date End Date Megan Blank MD [address] [place] [address] PCP - General Family Medicine 05/25/24 Eric Pineda RN [facility] Nurse - [facility] 04/07/24 Roof Bolting Coal Miner Relationship Specialty Start Date End Date Megan Blank MD [address] [place] [address] PCP - General Family Medicine 05/25/24 Eric Pineda RN [facility] Nurse - [facility] 04/07/24 Roof Bolting Coal Miner Relationship Specialty Start Date End Date Megan Blank MD [address] [place] [address] PCP - General Family Medicine 05/25/24 Eric Pineda RN [facility] Nurse - [facility] 04/07/24 Roof Bolting Coal Miner Relationship Specialty Start Date End Date Megan Blank MD [address] [place] [address] PCP - General Family Medicine 05/25/24 Eric Pineda RN [facility] Nurse - [facility] 04/07/24 Roof Bolting Coal Miner Relationship Specialty Start Date End Date Megan Blank MD [address] [place] [address] PCP - General Family Medicine 05/25/24 Eric Pineda RN [facility] Nurse - [facility] 04/07/24 Roof Bolting Coal Miner Relationship Specialty Start Date End Date Megan Blank MD [address] [place] [address] PCP - General Family Medicine 05/25/24 Eric Pineda RN [facility] Nurse - [facility] 04/07/24 Roof Bolting Coal Miner Relationship Specialty Start Date End Date Megan Blank MD [address] [place] [address] PCP - General Family Medicine 05/25/24 ALEJANDRA Pierre, RN [facility] Nurse - [facility] 04/07/24 Roof Bolting Coal Miner Relationship Specialty Start Date End Date Megan Blank MD PCP - General Family Medicine 05/09/23 Roof Bolting Coal Miner Relationship Specialty Start Date End Date Megan Blank MD PCP - General Family Medicine 05/09/23 Roof Bolting Coal Miner Relationship Specialty Start Date End Date Megan Blank MD [address] [place] [address] PCP - General Family Medicine 05/25/24 ALEJANDRA Pierre, RN [facility] Nurse - [facility] 04/07/24 Roof Bolting Coal Miner Relationship Specialty Start Date End Date Justino Gaspar MD [address] [place] [address] PCP - General Internal Medicine 02/21/25 ALEJANDRA Pierre, RN [facility] Nurse - [facility] 04/07/24 Roof Bolting Coal Miner Relationship Specialty Start Date End Date Justino Gaspar MD [address] [place] [address] PCP - General Internal Medicine 02/21/25 ALEJANDRA Pierre, RN [facility] Nurse - [facility] 04/07/24 Roof Bolting Coal Miner Relationship Specialty Start Date End Date Justino Gaspar MD [address] [place] [address] PCP - General Internal Medicine 02/21/25 ALEJANDRA Pierre, RN [facility] Nurse - [facility] 04/07/24 Roof Bolting Coal Miner Relationship Specialty Start Date End Date Justino Gaspar MD [address] [place] [address] PCP - General Internal Medicine 02/21/25 ALEJANDRA Pierre, RN [facility] Nurse - [facility] 04/07/24 Roof Bolting Coal Miner Relationship Specialty Start Date End Date Justino Gaspar MD [address] [place] [address] PCP - General Internal Medicine 02/21/25 ALEJANDRA Pierre, RN [facility] Nurse - [facility] 04/07/24 Roof Bolting Coal Miner Relationship Specialty Start Date End Date Justino Gaspar MD [address] [place] [address] PCP - General Internal Medicine 02/21/25 ALEJANDRA Pierre, RN [facility] Nurse - [facility] 04/07/24 Roof Bolting Coal Miner Relationship Specialty Start Date End Date Justino Gaspar MD [address] [place] [address] PCP - General Internal Medicine 02/21/25 ALEJANDRA Pierre, RN [facility] Nurse - [facility] 04/07/24 Roof Bolting Coal Miner Relationship Specialty Start Date End Date Justino Gaspar MD [address] [place] [address] PCP - General Internal Medicine 02/21/25 ALEJANDRA Pierre, RN [facility] Nurse - [facility] 04/07/24 Roof Bolting Coal Miner Relationship Specialty Start Date End Date Justino Gaspar MD [address] [place] [address] PCP - General Internal Medicine 02/21/25 ALEJANDRA Pierre, RN [facility] Nurse - [facility] 04/07/24 Roof Bolting Coal Miner Relationship Specialty Start Date End Date Justino Gaspar MD [address] [place] [address] PCP - General Internal Medicine 02/21/25 ALEJANDRA Pierre, RN [facility] Nurse - [facility] 04/07/24 Roof Bolting Coal Miner Relationship Specialty Start Date End Date Justino Gaspar MD [address] [place] [address] PCP - General Family Medicine 07/11/25 Roof Bolting Coal Miner Relationship Specialty Start Date End Date Justino Gaspar MD [address] [place] [address] PCP - General Family Medicine 07/11/25 Roof Bolting Coal Miner Relationship Specialty Start Date End Date Justino Gaspar MD [address] [place] [address] PCP - General Internal Medicine 02/21/25 ALEJANDRA Pierre, RN [facility] Nurse - [facility] 04/07/24 FOR RECORDS PERTAINING TO PATIENTS WHO [...] BE BASED ON THE PRIMARY CLINICAL RECORDS. [facility] provides no warranty or guarantee of the accuracy or completeness of information in this document.
[2025-08-12 18:34] VITALS: BP 139/90; PULSE 80; TEMP 36.4; O2SAT 97; BMI 50.9
[2025-08-12 20:06] VITALS: BP 150/80; PULSE 93; TEMP 36.6; O2SAT 96
[2025-08-12] MEDS: ENOXAPARIN SODIUM 40 MG/0.4 ML SYRINGE SUBQ (22:01)
[2025-08-12] MEDS: ROPINIROLE HCL 1 MG TABLET PO (22:01)
[2025-08-13 05:00] VITALS: BP 150/69; PULSE 84; O2SAT 95
[2025-08-13] MEDS: PIPERACILLIN SODIUM/TAZOBACTAM 3.375 GM in 0.9 % SODIUM CHLORIDE 50 ML IV (06:08)
[2025-08-13] MEDS: PANTOPRAZOLE SODIUM 40 MG TABLET.DR PO (06:08)
[2025-08-13 07:03] LABS: Hematocrit 38.1 % (42.0-54.0); Hemoglobin 12.3 g/dL (14.0-18.0); Mean Corpuscular HGB Conc 32.3 g/dL (29.9-35.2); Mean Corpuscular Hemoglobin 27.0 pg (25.9-34.0); Mean Corpuscular Volume 83.7 fL (80.0-94.0); Platelet Count 251 10^3/uL (150-450); Red Blood Count 4.55 10^6/uL (4.70-6.10); White Blood Count 8.4 10^3/uL (4.0-11.0)
[2025-08-13 07:07] LABS: Anion Gap 13.4; Blood Urea Nitrogen 18.0 mg/dL (7.0-18.0); Calcium 9.1 mg/dL (8.5-10.1); Carbon Dioxide 23.8 mmol/L (21.0-32.0); Chloride 105 mmol/L (98-107); Estimated GFR (African America >60 (>=60 mL/min/1.73m^2); Estimated GFR (Non-African Ame >60 (>=60 mL/min/1.73m^2); Glucose 103 mg/dL (74-106); Potassium 4.2 mmol/L (3.5-5.1); Sodium 138 mmol/L (136-145)
[2025-08-13 07:55] VITALS: BP 142/77; PULSE 95; TEMP 36.6; O2SAT 97
[2025-08-13] MEDS: ACETAMINOPHEN 325 MG TABLET 650 MG PO (08:40)
--- NOTE | 2025-08-13 09:07 | PM.HP ---
HPI H&P: HPI History of Present Illness Chief complaint: Open wound on (L) foot with complications cellulit Narrative: Mr Arizemndi is a 75-year-old gentleman who is known to have bilateral lower extremities lymphedema. He came in with worsening pain, swelling and redness involving the left leg from the knee down to the ankle. Patient had received multiple courses of oral antibiotic over the last several weeks with partial improvement. No fever or chills. No chest pain or palpitation. No shortness of breath. Opioid HPI Opioid Management Most Recent Pain and Opioid Data: Last Pain Scale 5 Today, 08:59 Last Pain Assessment 08/12/25, 20:00 Last MAR Pain Assessment Today, 08:40 Last ORT Total Score 0 08/12/25, 18:34 Last ORT Risk Category Low Risk 08/12/25, 18:34 Review of Systems ROS Status of ROS 10 or more systems reviewed and unremarkable except as noted in history and below PFSH PFSH Medical History (Updated 08/12/25 @ 17:29 by SHIKHA BARTHOLOMEW) High cholesterol ?E78.00 - Pure hypercholesterolemia, unspecified (ICD-10) GERD (gastroesophageal reflux disease) ?K21.9 - Gastro-esophageal reflux disease without esophagitis (ICD-10) Restless leg ?G25.81 - Restless legs syndrome (ICD-10) Surgical History (Updated 08/12/25 @ 18:30 by Evette Sanchez) History of bilateral knee replacement ?Z96.653 - Presence of artificial knee joint, bilateral (ICD-10) Family History (Updated 08/12/25 @ 18:31 by Evette Sanchez) Father Family history of stroke Brother Family history of cancer Social History (Updated 08/12/25 @ 18:33 by Evette Sanchez) Within the past year, how often did you have a drink containing alcohol: never Score interpretation: A score less than 4 is consistent with normal alcohol consumption. Smoking status: Never smoker Non-prescribed substance use: denies use Highest level of school completed/degree received: high school graduate Are you now , , , , never or living with a partner: In a typical week, how many times do you talk on the telephone with family, friends, or neighbors: 3 or more times per week How often do you get together with friends or relatives: 3 or more times per week How often do you attend roman catholic or tenriism services: 4 or more times per year Do you belong to any clubs or organizations such as roman catholic groups unions, fraternal or athletic groups, or school groups: yes Total score: 4 Score interpretation: A score of greater than or equal to 2 indicates the lowest level of social isolation. Little interest or pleasure in doing things: not at all Feeling down, depressed, or hopeless: not at all Feel stressed/tense/nervous/anxious/difficulty sleeping: not at all Meds Home Medications and Allergies Home Medications ?Medication ?Instructions ?Recorded ?Confirmed ?Type atorvastatin 10 mg tablet 10 mg PO DAILY 08/12/25 08/13/25 History omeprazole 20 mg capsule,delayed 20 mg PO DAILY 08/12/25 08/12/25 History release pramipexole 1.5 mg tablet,extended 3 mg PO DAILY 08/12/25 08/13/25 History release 24 hr (Mirapex ER) trazodone 150 mg tablet 150 mg PO .QHS 08/12/25 08/13/25 History furosemide 40 mg tablet 40 mg PO BID 08/13/25 08/13/25 History Allergies Allergy/AdvReac Type Severity Reaction Status Date / Time No Known Drug Allergies Allergy Verified 08/12/25 14:13 Exam Narrative Exam Narrative: [pt is awake and alert. oriented to place, time and person, morbidly obese HEENT: [place] conjunctiva and NL buccal mucosa Neck: Supple, no tenderness Endocrine: No Thyromegaly. Vascular: No JVD or carotid bruit. Lymphatic: No cervical lymphadenopathy. Chest: CTA no DTP. Heart RRR, no extra sound or murmur. Abd: Soft, no tenderness, no rebound and no rigidity. Increase abd girth therefore clinically I could not exclude the possibility of intra abd mass or organomegaly. LE: No cyanosis or clubbing, no varices. Bilateral lower extremities lymphedema. Erythema, induration and tenderness involving the left leg from the knee down to the ankle anteriorly, medially, laterally and posteriorly. Scattered stage II ulceration. No drainage. No clinical evidence of abscess or fluctuation. Palpable dorsalis pedis pulse. Neuro: A A O. Nl speech, comprehension and attention. Nl and symetrical motor and tone examination through out. []] Constitutional Vital Signs, click to edit/add: Last Vital Signs Temp 97.9 F 08/13/25 07:55 Pulse 95 H 08/13/25 07:55 Resp 18 08/13/25 07:55 BP 142/77 H 08/13/25 07:55 Pulse Ox 97 08/13/25 07:55 O2 Del Method Room Air 08/13/25 07:55 Results Labs Labs: Short CBC 08/12/25 08/13/25 Range/Units 14:45 06:32 WBC 7.9 8.4 (4.0-11.0) 10^3/uL Hgb 12.3 L 12.3 L (14.0-18.0) g/dL Hct 38.7 L 38.1 L (42.0-54.0) % Plt Count 240 251 (150-450) 10^3/uL BMP 08/12/25 08/13/25 14:45 06:32 Sodium 135 L 138 Potassium 4.1 4.2 Chloride 104 105 Carbon Dioxide 25.1 23.8 BUN 18.0 18.0 Creatinine 0.95 0.91 Glucose 108 H 103 Calcium 9.1 9.1 Assessment and Plan Assessment and Plan (1) Open wound of left foot with complication: (2) Cellulitis: (3) Failure of outpatient treatment: Plan Left leg cellulitis as described above with failure of outpatient treatment. I accepted him to be admitted to the medical floor for IV antibiotic. I started him on intravenous ceftriaxone and oral Zyvox. The likelihood of Pseudomonas is low. The likelihood of anaerobic coverage is low. Venous study rule out DVT. Patient has dorsalis pedis pulse. No clinical evidence of compartment syndrome If no reasonable improvement within the next 24 to [address] scan to rule out deep tissue abscess. Pain, pain management. DVT prophylax Lovenox 40 mg SQ twice Obesity Diet, exercise and lifestyle modification
[2025-08-13 09:45] LABS: A. calcoaceticus-baumannii Cpx NOT DETECTED (NOT DETECTE); Bacteroides fragilis NOT DETECTED (NOT DETECTE); Candida auris NOT DETECTED (NOT DETECTE); Candida glabrata NOT DETECTED (NOT DETECTE); Enterobacterales NOT DETECTED (NOT DETECTE); Enterococcus faecalis NOT DETECTED (NOT DETECTE); Enterococcus faecium NOT DETECTED (NOT DETECTE); Klebsiella aerogenes NOT DETECTED (NOT DETECTE); Klebsiella pneumoniae group NOT DETECTED (NOT DETECTE); Proteus spp. NOT DETECTED (NOT DETECTE); Salmonella spp. NOT DETECTED (NOT DETECTE); Serratia marcescens NOT DETECTED (NOT DETECTE); Staphylococcus epidermidis NOT DETECTED (NOT DETECTE); Staphylococcus lugdunensis NOT DETECTED (NOT DETECTE); Stenotrophomonas maltophilia NOT DETECTED (NOT DETECTE); Streptococcus pyogenes NOT DETECTED (NOT DETECTE); Streptococcus spp. NOT DETECTED (NOT DETECTE)
[2025-08-13] MEDS: ENOXAPARIN SODIUM 40 MG/0.4 ML SYRINGE SUBQ ×2 (09:56→21:07)
[2025-08-13] MEDS: LINEZOLID 600 MG TABLET PO ×2 (09:56→21:07)
[2025-08-13] MEDS: 0.9 % SODIUM CHLORIDE 250 ML 10 ML IV (10:01)
[2025-08-13 11:18] LABS: Source BLOOD
[2025-08-13 11:19] LABS: Staphylococcus spp. DETECTED (NOT DETECTE)
[2025-08-13] MEDS: OXYCODONE HCL 5 MG TABLET PO (15:24)
[2025-08-13 16:30] VITALS: BP 152/77; PULSE 93; O2SAT 95
[2025-08-13 19:54] VITALS: BP 128/80; PULSE 83; TEMP 36.5; O2SAT 94
[2025-08-13] MEDS: ROPINIROLE HCL 1 MG TABLET PO (21:07)
[2025-08-13] MEDS: ATORVASTATIN CALCIUM 10 MG TABLET PO (21:07)
[2025-08-14 05:00] VITALS: BP 155/86; PULSE 77; O2SAT 92
[2025-08-14] MEDS: PANTOPRAZOLE SODIUM 40 MG TABLET.DR PO (05:39)
[2025-08-14 08:27] VITALS: BP 144/92; PULSE 77; TEMP 36.4; O2SAT 94
[2025-08-14] MEDS: LINEZOLID 600 MG TABLET PO ×2 (08:50→21:34)
[2025-08-14] MEDS: ENOXAPARIN SODIUM 40 MG/0.4 ML SYRINGE SUBQ ×2 (08:50→21:33)
[2025-08-14] MEDS: 0.9 % SODIUM CHLORIDE 250 ML 10 ML IV (08:55)
--- NOTE | 2025-08-14 09:29 | P.PN_ITS ---
Progress Note: Subjective Subjective Interval history: Patient reported that the discomfort and left leg is less than yesterday. No other symptoms. No chest pain. No abdominal pain. No nausea or vomiting. Exam Narrative Exam Narrative: [pt is awake and alert. oriented to place, time and person, morbidly obese HEENT: [place] conjunctiva and NL buccal mucosa Neck: Supple, no tenderness Endocrine: No Thyromegaly. Vascular: No JVD or carotid bruit. Lymphatic: No cervical lymphadenopathy. Chest: CTA no DTP. Heart RRR, no extra sound or murmur. Abd: Soft, no tenderness, no rebound and no rigidity. Increase abd girth therefore clinically I could not exclude the possibility of intra abd mass or organomegaly. LE: No cyanosis or clubbing, no varices. Bilateral lower extremities lymphedema. Marginal resolution of the erythema, induration and tenderness involving the left leg from the knee down to the ankle anteriorly, medially, laterally and posteriorly. Scattered stage II ulceration. No drainage. No clinical evidence of abscess or fluctuation. Palpable dorsalis pedis pulse. Neuro: A A O. Nl speech, comprehension and attention. Nl and symetrical motor and tone examination through out. []] Constitutional Vital Signs, click to edit/add: Last Vital Signs Temp 97.5 F L 08/14/25 08:27 Pulse 77 08/14/25 08:27 Resp 18 08/14/25 08:27 BP 144/92 H 08/14/25 08:27 Pulse Ox 94 L 08/14/25 08:27 O2 Del Method Room Air 08/14/25 05:00 Progress Note: A&P Assessment and Plan (1) Open wound of left foot with complication: (2) Cellulitis: (3) Failure of outpatient treatment: Plan Left leg cellulitis as described above with failure of outpatient treatment. I accepted him to be admitted to the medical floor for IV antibiotic. Mild general resolution of erythema and induration compared to admission I started him on intravenous ceftriaxone and oral Zyvox. The likelihood of Pseudomonas is low. The likelihood of anaerobic coverage is low. Venous study rule out DVT. Negative for DVT Patient has dorsalis pedis pulse. No clinical evidence of compartment syndrome Bacteremia. 1 of blood culture is growing staph. This could be true bacteremia versus contamination. Clinically the patient does not have overwhelming evidence to suggest sepsis or bacteremia. Repeat blood culture. Pending final sensitivity report DVT prophylax Lovenox 40 mg SQ twice
[2025-08-14 11:59] VITALS: BP 129/83; PULSE 75; TEMP 36.4; O2SAT 94
[2025-08-14 16:35] VITALS: BP 134/85; PULSE 79; TEMP 36.5; O2SAT 96
[2025-08-14 19:34] VITALS: BP 147/92; PULSE 84; TEMP 36.5; O2SAT 94
[2025-08-14] MEDS: ATORVASTATIN CALCIUM 10 MG TABLET PO (21:34)
[2025-08-14] MEDS: ROPINIROLE HCL 1 MG TABLET PO (21:34)
[2025-08-14 22:53] VITALS: BP 118/78; PULSE 85; TEMP 36.3; O2SAT 91
[2025-08-15 04:31] VITALS: BP 128/81; PULSE 82; TEMP 36.4; O2SAT 94
[2025-08-15] MEDS: PANTOPRAZOLE SODIUM 40 MG TABLET.DR PO (05:53)
--- NOTE | 2025-08-15 07:40 | CM.NOTE ---
Rounds made with Dr. Kimball, discussed plan of care with pt. Pt will discharge to home today on oral antibiotics.
[2025-08-15 08:00] VITALS: BP 152/100; PULSE 18; TEMP 36.6; O2SAT 95
--- NOTE | 2025-08-15 09:00 | CM.NOTE ---
Per Dain in [place] the Linezolid 600 mg PO BID is $58 with the discount card.
[2025-08-15] MEDS: ENOXAPARIN SODIUM 40 MG/0.4 ML SYRINGE SUBQ (09:09)
[2025-08-15] MEDS: LINEZOLID 600 MG TABLET PO (09:09)
--- NOTE | 2025-08-15 09:15 | CM.NOTE ---
Spoke with pt regarding cost of zyvox, pt is able to afford medication at discharge. Denies any discharge needs at this time. Pt does use walker at home and his children help out when needed. Pt able to perform all ADL's.
--- NOTE | 2025-08-15 09:51 | SWNOTE1 ---
Important Message from Medicare reviewed and discussed with patient. Pt. verbalized understanding and signed the form. Original given to patient and copy placed in patient?s chart.
--- NOTE | 2025-08-15 09:51 | SWNOTE1 ---
SW met with pt to discuss dc needs. Pt lives at home by himself. Pt's is at a [facility] for rehab at this time and he is not sure she will be able to return home. Pt does have several family members in the area that assist if needed. Pt does use a walker at home. Pt voiced he is getting around alright at this time. He has a sore on his foot and has to wear shoes to walk around. He has follow up in regards to this wound. Pt denies any discharge needs at this time. SW to follow as needed.
--- NOTE | 2025-08-15 09:51 | PM.DS1 ---
DS: Providers Provider Date of admission: 08/12/25 18:14 Primary care physician: MEGAN ANGUIANO DS: Diagnosis Discharge Diagnosis (1) Open wound of left foot with complication: (2) Cellulitis: (3) Failure of outpatient treatment: Plan As listed above, below and others that arer not listed DS: Summary Hospital Course Hospital Course: Mr Arizmendi is a 75-year-old gentleman who came in with burning pain, swelling and redness involving the left leg and was found to have the following: Left leg cellulitis as described above with failure of outpatient treatment. I accepted him to be admitted to the medical floor for IV antibiotic. Mild general resolution of erythema and induration compared to admission I started him on intravenous ceftriaxone and oral Zyvox. The likelihood of Pseudomonas is low. The likelihood of anaerobic coverage is low. Venous study rule out DVT. Negative for DVT Patient has dorsalis pedis pulse. No clinical evidence of compartment syndrome Significant improvement over last 24 hours. Patient stated that the pain and discomfort had significantly improved. Noticeable improvement of the erythema and induration. Patient is ready physically and psychologically to be discharged home. My plan was to discharge him on oral Zyvox however linezolid has significant potential drug interaction with his home medications that he cannot afford not to take. I will discharge him on Augmentin 875 twice a day for 10 days. Patient was instructed to return back to the emergency room if there is any worsening redness, pain or swelling. Bacteremia. 1 of blood culture is growing staph. It appears to be coag negative staph, 1 out of 2 bottles which is probably contamination. I will keep above the final culture report. DVT prophylax Lovenox 40 mg SQ twice Chronic lymphedema in both legs. Patient takes Lasix for it. Patient is to follow-up with his PCP regarding that. Chronic, subacute medical conditions not listed above, abnormal labs and imaging. These would need to be addressed. Could be addressed later on or in the outpatient setting by PCP collaboration with other needed outpatient providers when time and condition are appropriate. Time Spent with Patient Time attestation: Total time spent providing and/or coordinating discharge services: Exam Constitutional Vital Signs, click to edit/add: Last Vital Signs Temp 97.9 F 08/15/25 08:00 Pulse 18 L 08/15/25 08:00 Resp 18 08/15/25 08:00 BP 152/100 H 08/15/25 08:00 Pulse Ox 95 08/15/25 08:00 O2 Del Method Room Air 08/15/25 08:00 DS: Data Data Completed and Pending Labs on day of discharge: Preliminary micro results at discharge 08/12/25 14:59 Blood Culture Result 1 - Preliminary Blood - Left Hand NO GROWTH AT 36-48 HOURS. FINAL TO FOLLOW. 08/12/25 15:00 Blood Culture Result 2 - Preliminary Blood Discharge Plan Discharge Disposition: Home, Self-Care Condition: Good Discharge Medications: New amoxicillin-pot clavulanate 875-125 mg tablet 1 tab PO BID Qty: 20 0RF Continued omeprazole 20 mg capsule,delayed release(DR/EC) 20 mg PO DAILY atorvastatin 10 mg tablet 10 mg PO DAILY Rx Instructions: BEDTIME pramipexole [Mirapex ER] 1.5 mg tablet extended release 24 hr 3 mg PO DAILY Rx Instructions: bedtime trazodone 150 mg tablet 150 mg PO .QHS Rx Instructions: bedtime furosemide 40 mg tablet 40 mg PO BID Print Language: Mongolian Activity Restrictions/Additional Instructions: I may not have addressed or treated all of your medical illnesses or the abnormal blood work or imaging studies during this hospitalization. Please ask your primary care provider to obtain [facility] records entirely to follow up on all of the abnormal physical, laboratory, and imaging findings that I have not addressed. Please return back to the emergency room or seek medical attention if your symptoms worsen or return. Discharging you from [facility] does not mean that your medical care ends here and now. You may still need additional monitoring, work up, investigation, and treatment plan to be handled from this point on by out patient providers including your primary care provider and specialists. For any medication question, please contact your retail pharmacist or your primary care provider. Thank you. Forms: Portal Instructions Follow Up Appointments: 08/19 @ 10:30am with Dr. Zhang (Dr. Anguiano retired) Joanna[address] [place] [phone]
--- NOTE | 2025-08-15 10:06 | CM.NOTE ---
Per Dr Kimball please make sure pharmacy received the cancellation for the Zyvox.
--- NOTE | 2025-08-15 10:19 | CM.NOTE ---
CM talked with pt about zyvox, this would not be medication he is discharged on d/t interaction with other medications pt takes. Zyvox was cancelled and Dr. Jigar Mhoan. Pt verbalizes understanding.
--- NOTE | 2025-08-16 12:05 | CM.NOTE ---
Final blood culture sent to Dr. Kimball via [employer] text.
--- NOTE | 2025-08-17 07:03 | P.EN_ITS ---
Event Note Event Note: Following up on blood and wound culture after discharge. 1 bottle out of 2 blood culture came back positive for coag negative staph which is likely contaminant. Repeat 2 blood cultures came back negative. Wound culture came back positive for MRSA and Enterococcus faecalis. Both are sensitive to linezolid. Patient will be called and instructed to pick pack worker the prescription for linezolid 600 mg twice a day for 16 days. Patient will be instructed to hold taking trazodone and Mirapex for 3 weeks due to potential interaction with linezolid I would recommend patient to have CBC weekly for 2 weeks at the PCP office to monitor bone marrow activity and the blood count I would recommend to shorten or extend Nasalide treatment by PCP based on the clinical progression.
--- NOTE | 2025-08-17 09:31 | CM.NOTE ---
Pt's telephone number on chart disconnected, called PCP for pt's telephone number. Called registration to update number. Called patient at home for change in antibiotic d/t positive wound culture. Spoke with Royce, instructed him to pickle cutter new antibiotic at pharmacy and start taking today. Pt will stop taking Augmentin that was prescribed at discharge and start zyvox as ordered. Pt will also need to stop taking Trazodone and Mirapex per Dr. Kimball. Pt has f/u appointment scheduled with PCP on Friday. Pt verbalizes back instructions to verify pt is understanding medication change. Pt denies any other questions or concerns.
== END 2025-08-15 11:16 | disposition home or self-care (01) | DRG 603 ==
LOC: ER 17:29 → MS 18:20
PROVIDERS: Physician Assistant; Admitting Provider Internal Medicine; Emergency Provider Emergency Medicine; PCP Family Medicine; Visit Provider Internal Medicine
DX: L03.116 Cellulitis of left lower limb (principal); Z68.43 Body mass index [BMI] 50.0-59.9, adult; S91.302A Unspecified open wound, left foot, initial encounter; I89.0 Lymphedema, not elsewhere classified; E78.00 Pure hypercholesterolemia, unspecified; K21.9 Gastro-esophageal reflux disease without esophagitis; G25.81 Restless legs syndrome; Z96.653 Presence of artificial knee joint, bilateral; Z79.899 Other long term (current) drug therapy; E66.01 Morbid (severe) obesity due to excess calories; B95.2 Enterococcus as the cause of diseases classified elsewhere; B95.62 Methicillin resistant Staphylococcus aureus infection as the cause of diseases classified elsewhere
CPT/HCPCS: 36415; 73590; 73610; 73630; 80048; 83605; 85025; 85027; 85610; 85652; 86140; 87040; 87070; 87075; 87077; 87088; 87150; 87186; 93971; 96365; 96366; 96367; 99285; J0696; J1650; J2543; J3373

== ENCOUNTER 2025-08-23 09:12 | Outpatient (OUT) | payer MEDICARE, SELFPAY ==
--- OUTSIDE RECORDS SUMMARY | 2025-08-23 09:24 | XMS_ITS | CCD ---
Author Organization [facility] Care Team Providers Care Sign Installer Name Role Phone Megan Blank Primary Care [...] Referring Unavailable SHENDGE, VITHAL Admitting Unavailable SHENDGE, VITHAL Attending Unavailable SHENDGE, JEHAL Attending Unavailable SHENDGE, JEHAL Attending Unavailable STEPANICLESLEY Referring Unavailable SHENDGDevendra, JEHAL Attending Unavailable CHIRAG KWON Attending Unavailable MEGAN BLANK Referring Unavailable SILVIO, MEGAN Fournier Primary Care Unavailable Megan Blank MD Primary Care Provider Megan Blank MD Primary Care Provider Megan Blank MD Primary Care Provider Megan Blank MD Primary Care Provider Megan Blank MD Primary Care Provider Justino Gaspar MD Primary Care Provider Megan Blank MD Primary Care Provider [phone] GRETEL CHAPPELL Referring Unavailable DEFRANCE, MEGAN Fournier Primary Care Unavailable GRETEL CHAPPELL Referring Unavailable DEFRANCE, MEGAN Fournier Primary Care Unavailable DEFRANCE, MEGAN Fournier Primary Care Unavailable ALTON GRIJALVA Attending Unavailable LEATHA CORNEJO Admitting Unavailable PRINCESS WRIGHT Attending Unavailable ADRIANA, PRINCESS Referring Unavailable DEFRANCE, [...] Primary Care Unavailable DEMETRIUSBETTY ANAYA Attending Unavailable DEMETRIUS, BETTY Quintanilla Referring Unavailable DEFRANCE, MEGAN Fournier Primary Care Unavailable GUERDA AGGARWAL Referring Unavailable JUSTINO GASPAR Primary Care Unavailable Justino Gaspar MD Primary Care Provider MEGAN BLANK Attending Unavailable DEFRANCE, MEGAN Fournier Referring Unavailable [...] Unavailable DEFRANCE, MEGAN Fournier Primary Care Unavailable BO MICHELLE Attending Unavailable DEFRANCE, MEGAN Fournier Referring Unavailable DEFRANCE, MEGAN Fournier Primary Care Unavailable SCHLACHTNORMA, BO Attending Unavailable DEFRANCE, MEGAN Fournier Referring Unavailable HUBERT, JUSTINO Primary [...] Drug Class(es) Dates Sig (Normalized) Sig (Original) amoxicillin 875 mg / clavulanate 125 mg oral tablet (1 source) Penicillin-class Antibacterial Start: 08-16-2025 End: 08-19-2025 take 1 tablet by mouth once in the morning amoxicillin-pot clavulanate (AUGMENTIN) 875-125 mg per tablet Take 1 tablet by mouth in the morning and 1 tablet before bedtime. 08/16/2025 08/19/2025 Discontinued aspirin 81 mg delayed release oral tablet [...] End: 05-18-2025 take 1 tablet by mouth once daily atorvastatin (LIPITOR) 10 mg tablet TAKE ONE TABLET BY MOUTH ONCE NIGHTLY 90 tablet 1 05/18/2025 Active clindamycin 150 mg oral capsule (6 [...] End: 04-28-2025 take 1 tablet by mouth in the morning ferrous sulfate 325 (65 FE) MG tablet Indications: Other iron deficiency anemia Take 1 tablet (325 mg total) by mouth in the morning. 30 tablet 3 04/28/2025 Active furosemide 40 mg oral tablet (20 sources) Loop Diuretic Start: 12-23-2022 End: 07-25-2025 take 1 tablet by mouth once furosemide (LASIX) 40 mg tablet Indications: Lymphedema of both lower extremities Take 1 tablet (40 mg total) by mouth every 12 (twelve) hours. 90 tablet 3 07/25/2025 Active Start: 12-23-2022 End: 09-28-2024 take 1 tablet by mouth twice daily before mealtime furosemide (LASIX) 40 mg tablet Indications: Lymphedema of both lower extremities Take 1 tablet (40 mg total) by mouth 2 (two) times a day before meals. 90 tablet 1 06/15/2024 09/28/2024 Discontinued linezolid 600 mg oral tablet (1 source) Oxazolidinone Antibacterial take 1 tablet by mouth in the morning, then take 1 tablet by mouth at bedtime linezolid (ZYVOX) 600 mg tablet Take 1 tablet (600 mg total) by mouth in the morning and 1 tablet (600 mg total) before bedtime. Active mupirocin 0.02 mg/mg topical ointment (18 sources) RNA Synthetase Inhibitor Antibacterial Start: mupirocin (BACTROBAN) 2 % ointment Apply 1 [...] capsule (20 sources) Proton Pump Inhibitor Start: End: take 1 capsule by mouth once daily before breakfast omeprazole (PriLOSEC) 20 mg capsule Take 1 capsule (20 mg total) by mouth every morning before breakfast. 90 capsule 1 07/25/2025 Active potassium chloride 20 meq extended release oral tablet (1 source) Start: 024 End: potassium chloride (K-TAB,KLOR-CON) 20 mEq CR tablet Take 1 tablet (20 mEq total) by mouth in the morning for 7 days. 7 tablet 05/27/2024 06/03/2024 Active pramipexole dihydrochloride 1.5 mg oral tablet (20 sources) Nonergot Dopamine Agonist Start: 023 End: take 1 tablet by mouth three times daily pramipexole (MIRAPEX) 1.5 mg tablet TAKE 1 TABLET BY MOUTH 3 TIMES A DAY 270 tablet 1 05/18/2025 Active silver sulfADIAZINE 10 mg/ml topical cream (10 sources) Sulfonamide Antibacterial Start: End: silver sulfADIAZINE (SILVADENE, SSD) 1 % cream Apply 1 Application topically in the morning. 400 g 1 06/25/2024 Active sulfamethoxazole 800 mg / trimethoprim 160 mg oral tablet (10 sources) Dihydrofolate Reductase Inhibitor Antibacterial, Sulfonamide Antimicrobial Start: End: take 1 tablet by mouth once in the morning sulfamethoxazole-tr imethoprim (BACTRIM DS) 800-160 mg per tablet Take [...] Active traZODone hydrochloride 150 mg oral tablet (3 sources) Serotonin Reuptake Inhibitor Start: 08-03-2025 take 1 [...] sleep. 10/21/2024 Discontinued (Alternate therapy) Lactobac comb 2-XIF-lpjsvsjoyx (PROBIOTIC & ACIDOPHILUS) 300-250 million cell-mg capsule (7 sources) Start: 07-27-2024 End: 10-21-2024 take 1 capsule by mouth in the morning Lactobac comb 0-CBO-nhmadhwzmk (PROBIOTIC & ACIDOPHILUS) 300-250 million cell-mg capsule Take 1 capsule by mouth in the morning and 1 capsule in the evening. Take with meals. 60 capsule 07/27/2024 10/21/2024 Discontinued (Alternate therapy) Start: 07-27-2024 take 1 capsule by mo uth in the morning Lactobac comb 5-MEC-poryidqzqp (PROBIOTIC & ACIDOPHILUS) 300-250 million cell-mg capsule [...] toe(s)] 08-12-2024 Episodic Other connective tissue disease (12 sources) Pain in left foot; Translations: [Pain [...] Translations: [Lymphangitis] Onset: 06-24-2024 06-24-2024 Chronic Other diseases of veins and lymphatics (1 source) Lymphedema associated with obesity; Translations: [Lymphedema, not elsewhere classified] 08-19-2025 Chronic Other hereditary and degenerative nervous system conditions (20 sources) Restless legs; Translations: [Restless legs syndrome] Onset: 04-19-2021 07-31-2024 Chronic Other nervous system disorders (12 sources) Difficulty walking; Translations: [Difficulty in walking, [...] [Nail dystrophy] 08-12-2024 Episodic Other skin disorders (12 sources) Acquired keratoderma; Translations: [Acquired keratosis [keratoderma] [...] medical condition] 08-03-2025 Chronic Residual codes; unclassified (2 sources) Other hypersomnia; Translations: [Hypersomnia, unspecified] Onset: 08-13-2022 05-25-2024 Chronic Residual codes; unclassified (1 source) Insomnia Onset: 07-25-2025 Episodic Skin and subcutaneous tissue infections (20 sources) Cellulitis of right lower limb; Translations: [Cellulitis of right lower limb] Onset: 05-25-2024 05-25-2024 Episodic Spondylosis; intervertebral disc disorders; other back problems (20 sources) Arthritis of left sacroiliac joint; Translations: [Spondylosis without myelopathy or radiculopathy, sacral and sacrococcygeal region] Onset: 02-21-2025 03-11-2024 Chronic Unclassified (1 source) Dressing Change Onset: 07-02-2024 Unclassified (1 source) Wound Check Onset: 06-25-2024 Unclassified (1 source) Restless Leg Onset: 03-08-2025 Unclassified (1 source) Annual Exam Onset: 10-21-2024 Unclassified (1 source) Neck Stiffness Onset: 08-09-2024 Viral infection (10 sources) Plantar wart of left foot; Translations: [...] (20 sources) Mood disorders Onset: 10-21-2024 Resolved: 08-19-2025 10-21-2024 Other and unspecified benign neoplasm (20 [...] unclassified (1 source) Edema Onset: 10-07-2024 Episodic Spondylosis; intervertebral disc disorders; other back problems (20 sources) Chronic low back pain; Translations: [Chronic midline low back pain without sciatica] Onset: 04-19-2021 04-19-2021 Episodic Superficial injury; contusion (1 source) Blister of lower leg without infection; Translations: [Blister (nonthermal), right lower leg, initial encounter] 06-25-2024 Episodic Unclassified (20 sources) Onset: 01-29-2022 Resolved: 07-25-2025 01-29-2022 Results Test Name Value Interpretation Reference Range Facility CBC WITH AUTO DIFFERENTIALon 04-27-2025 BASOPHILS ABSOLUTE COUNT (10*3/UL) BY AUTOMATED COUNT 0.0 10*3/uL Normal 0.0-0.2 [facility] Comment on above: Performed By: #### C BCA, 37939-0, CMP, 22421-9, 1987-5, 64542- 0 #### [facility] ([id number]) [address] [place] [address] 23857 #### FEPR #### [facility] ([id number]) [address], [address] [place] [address] BASOPHILS RELATIVE PERCENT BY AUTOMATED COUNT 0.6 % Normal [facility] Comment on above: Performed By: #### C BCA, 51452-3, CMP, 24533-7, 5, 73743- 0 #### [facility] ([id number]) [address] [place] [address] 17276 #### FEPR #### [facility] ([id number]) [address], [address] [place] [address] CELLAVISION DIFFERENTIAL TYPE AUTOMATED DIFFERENTIAL Normal [facility] Comment on above: Performed By: #### C BCA, 51208-3, CMP, 28556-6, 1988-03, 95788- 0 #### [facility] ([id number]) [address] [place] [address] 73655 #### FEPR #### [facility] ([id number]) [address], [address] [place] [address] Eosinophils (Bld) [#/Vol] 0.2 10*3/uL Normal 0.0-0.4 [facility] Comment on above: Performed By: #### C BCA, 55045-1, CMP, 43479-9, 1988-03, 18470- 0 #### [facility] ([id number]) [address] [place] [address] 06626 #### FEPR #### [facility] ([id number]) [address], [address] [place] [address] EOSINOPHILS RELATIVE PERCENT BY AUTOMATED COUNT 3.4 % Normal [facility] Comment on above: Performed By: #### C BCA, 52523-8, CMP, 59654-4, 1988-03, 14442- 0 #### [facility] ([id number]) [address] [place] [address] 11579 #### FEPR #### [facility] ([id number]) [address] [address], [address] [place] [address] Erythrocyte distribution width (RBC) [Ratio] 17.1 % High 11.5-15 [facility] Comment on above: Performed By: #### C BCA, 50267-5, CMP, 31955-5, 1988-03, 15639- 0 #### [facility] ([id number]) [address] [place] [address] 44047 #### FEPR #### [facility] ([id number]) [address] [address], [address] [place] [address] Hematocrit (Bld) [Volume fraction] 38.0 % Low 39-50 [facility] Comment on above: Performed By: #### C BCA, 49045-7, CMP, 57579-3, 1988-03, 66505- 0 #### [facility] ([id number]) [address] [place] [address] 84307 #### FEPR #### [facility] ([id number]) [address], [address] [place] [address] Hemoglobin (Bld) [Mass/Vol] 12.5 g/dL Low 13-17 [facility] Comment on above: Performed By: #### C AMARILYS, 87250-0, CMP, 39919-4, 1988-03, 06886- 0 #### [facility] ([id number]) [address] [place] [address] 63834 #### FEPR #### [facility] ([id number]) [address], [address] [place] [address] LYMPHOCYTES ABSOLUTE COUNT (10*3/UL) BY AUTOMATED COUNT 1.3 10*3/uL Normal 1.0-3.5 [facility] Comment on above: Performed By: #### C AMARILYS, 86576-0, CMP, 93656-3, 1988-03, 21584- 0 #### [facility] ([id number]) [address] [place] [address] 02932 #### FEPR #### [facility] ([id number]) [address], [address] [place] [address] LYMPHOCYTES RELATIVE PERCENT BY AUTOMATED COUNT 19.1 % Normal [facility] Comment on above: Performed By: #### C BCA, 96335-9, CMP, 78312-9, 1988-03, 55861- 0 #### [facility] ([id number]) [address] [place] [address] 20449 #### FEPR #### [facility] ([id number]) [address] [address], [address] [place] [address] MCH (RBC) [Entitic mass] 27.0 pg Normal 27-34 [facility] Comment on above: Performed By: #### C BCA, 75716-0, CMP, 08539-7, 1988-03, 42849- 0 #### [facility] ([id number]) [address] [place] [address] 15537 #### FEPR #### [facility] ([id number]) [address], [address] [place] [address] MCHC (RBC) [Mass/Vol] 32.8 g/dL Normal 32-36 [facility] Comment on above: Performed By: #### C BCA, 99431-7, CMP, 52975-5, 1988-03, 75310- 0 #### [facility] ([id number]) [address] [place] [address] 60460 #### FEPR #### [facility] ([id number]) [address] [place] [address], [address] [address] MCV (RBC) [Entitic vol] 82 fL Normal 80-100 [facility] Comment on above: Performed By: #### C BCA, 89177-0, CMP, 14727-4, 1988-03, 0 #### [facility] ([id number]) [address] [place] [address] 34692 #### FEPR #### [facility] ([id number]) [address] [place] [address] [address] [place] [address] MONOCYTES ABSOLUTE COUNT (10*3/UL) BY AUTOMATED COUNT 0.5 10*3/uL Normal 0.0-0.9 [facility] Comment on above: Performed By: #### C BCA, 58089-1, CMP, 88724-1, 1988-03, - 0 #### [facility] ([id number]) [address] [place] [address] 94553 #### FEPR #### [facility] ([id number]) [address], [address] [place] [address] MONOCYTES RELATIVE PERCENT BY AUTOMATED COUNT 7.0 % Normal [facility] Comment on above: Performed By: #### C AMARILYS, 28136-0, CMP, 03889-1, 1988-03, 44695- 0 #### [facility] ([id number]) [address] [place] [address] 59349 #### FEPR #### [facility] ([id number]) [address], [address] [place] [address] NEUTROPHILS ABSOLUTE COUNT BY AUTOMATED COUNT 4.9 10*3/uL Normal 1.5-6.6 [facility] Comment on above: Performed By: #### C AMARILYS, 94055-0, CMP, 08060-8, 1988-03, 65197- 0 #### [facility] ([id number]) [address] [place] [address] 43123 #### FEPR #### [facility] ([id number]) [address], [address] [place] [address] NEUTROPHILS RELATIVE PERCENT BY AUTOMATED COUNT 69.9 % Normal [facility] Comment on above: Performed By: #### C AMARILYS, 24155-7, CMP, 87259-2, 1988-03, 13681- 0 #### [facility] ([id number]) [address] [place] [address] 15779 #### FEPR #### [facility] ([id number]) [address], [address] [place] [address] Platelet mean volume (Bld) [Entitic vol] 6.6 fL Low 7-12 [facility] Comment on above: Performed By: #### C AMARILYS, 86374-8, CMP, 76079-8, 1988-03, 78829- 0 #### [facility] ([id number]) [address] [place] [address] 11630 #### FEPR #### [facility] ([id number]) [address], [address] [place] [address] Platelets (Bld) [#/Vol] 271 10*3/uL Normal 150-450 [facility] Comment on above: Performed By: #### C BCA, 25100-0, CMP, 06257-7, 1988-03, 11860- 0 #### [facility] ([id number]) [address] [place] [address] 19664 #### FEPR #### [facility] ([id number]) [address] [facility] [address], [address] [place] [address] RBC COUNT 4.62 X10E12/L Normal 4.1-5.7 [facility] Comment on above: Performed By: #### C BCA, 27717-4, CMP, 19816-9, 1988-03, 70004- 0 #### [facility] ([id number]) [address] [place] [address] 32374 #### FEPR #### [facility] ([id number]) [address], [address] [place] [address] WBC (Bld) [#/Vol] 6.9 10*3/uL Normal 4-[address] [facility] Comment on above: Performed By: #### C BCA, 47773-1, CMP, 85552-7, 1988-03, 85498- 0 #### [facility] ([id number]) [address] [place] [address] 04484 #### FEPR #### [facility] ([id number]) [address], [address] [place] [address] FERRITINon 04-27-2025 Ferritin [Mass/Vol] 84 ng/mL Normal 24-336 [facility] Comment on above: Performed By: #### C AMARILSY, 97691-0, CMP, 32479-5, 1988-03, 59555- 0 #### [facility] ([id number]) [address] [place] [address] 91895 #### FEPR #### [facility] ([id number]) [address], [address] [place] [address] IRON AND TIBCon 04-27-2025 Iron [Mass/Vol] 40 ug/dL Low 50-212 [facility] Comment on above: Performed By: #### C AMARILYS, 52440-0, CMP, 34592-2, 1988-03, 46185- 0 #### [facility] ([id number]) [address] [place] [address] 82493 #### FEPR #### [facility] ([id number]) [address], [address] [place] [address] IRON BINDING 308 ug/dL Normal 250-425 [facility] Comment on above: Performed By: #### C AMARILYS, 36707-6, CMP, 73310-7, 1988-03, 43511- 0 #### [facility] ([id number]) [address] [place] [address] 93783 #### FEPR #### [facility] ([id number]) [address], [address] [place] [address] IRON SATURATION 13 % SATURATION Low 20-50 [facility] Comment on above: Performed By: #### C BCA, 93855-0, CMP, 91560-2, 1988-03, 36355 0 #### [facility] ([id number]) [address] [place] [address] 42481 #### FEPR #### [facility] ([id number]) [address], [address] [place] [address] Transferrin [Mass/Vol] 220 mg/dL Normal 168-336 [facility] Comment on above: Performed By: #### C BCA, 54171-1, CMP, 31154-4, 1988-03, 47325- 0 #### [facility] ([id number]) [address] [place] [address] 52569 #### FEPR #### [facility] ([id number]) [address] [facility] [facility] [address] [place] [address] CBC AND AUTO DIFFon 08-02-20 24 ABSOLUTE BASOPHIL 0.0 X10E9/L Normal 0.0-0.[address] [facility] Comment on above: Performed By: #### C BCA, 84244-4, CMP, 75656-2, 1988-03, 39902- 0 #### [facility] ([id number]) [address] [place] [address] 62792 #### FEPR #### [facility] ([id number]) [address] [facility], [address] [place] [address] ABSOLUTE NEUTROPHIL 4.4 X10E9/L Normal 1.5-6.6 [facility] Comment on above: Performed By: #### C BCA, 70260-4, CMP, 48568-2, 1988-03, 96463- 0 #### [facility] ([id number]) [address] [place] [address] 86765 #### FEPR #### [facility] ([id number]) [address] [facility], [address] [place] [address] Basophils/100 WBC (Bld) 0.5 % Normal [facility] Comment on above: Performed By: #### C BCA, 90810-0, CMP, 55617-5, 1988-03, 82061- 0 #### [facility] ([id number]) [address] [place] [address] 97053 #### FEPR #### [facility] ([id number]) [address], [address] [place] [address] Eosinophils (Bld) [#/Vol] 0.3 10*3/uL Normal 0.0-0.4 [facility] Comment on above: Performed By: #### C AMARILYS, 99991-5, CMP, 80523-9, 1988-03, 18926- 0 #### [facility] ([id number]) [address] [place] [address] 49559 #### FEPR #### [facility] ([id number]) [address], [address] [place] [address] Eosinophils/100 WBC (Bld) 4.2 % Normal [facility] Comment on above: Performed By: #### C AMARILYS, 28688-7, CMP, 85573-1, 1988-03, 87864- 0 #### [facility] ([id number]) [address] [place] [address] 92262 #### FEPR #### [facility] ([id number]) [address], [address] [place] [address] Erythrocyte distribution width (RBC) [Ratio] 16.9 % High 11.5-15.0 [facility] Comment on above: Performed By: #### C AMARILYS, 05877-3, CMP, 26471-2, 1988-03, 23885- 0 #### [facility] ([id number]) [address] [place] [address] 96525 #### FEPR #### [facility] ([id number]) [address], [address] [place] [address] Hematocrit (Bld) [Volume fraction] 35.3 % Low 39-49 [facility] Comment on above: Performed By: #### C BCA, 14398-8, CMP, 15827-4, 1988-03, 75562- 0 #### [facility] ([id number]) [address] [place] [address] 59413 #### FEPR #### [facility] ([id number]) [address], [address] [place] [address] Hemoglobin (Bld) [Mass/Vol] 11.4 g/dL Low 13.0-17.0 [facility] Comment on above: Performed By: #### C BCA, 03041-7, CMP, 55182-5, 1988-03, 59838- 0 #### [facility] ([id number]) [address] [place] [address] 03692 #### FEPR #### [facility] ([id number]) [address], [address] [place] [address] Lymphocytes (Bld) [#/Vol] 1.1 10*3/uL Normal 1.0-3.5 [facility] Comment on above: Performed By: #### C BCA, 05088-4, CMP, 71750-0, 1988-03, 26660- 0 #### [facility] ([id number]) [address] [place] [address] 96334 #### FEPR #### [facility] ([id number]) [address], [address] [place] [address] Lymphocytes/100 WBC (Bld) 17.8 % Normal [facility] Comment on above: Performed By: #### C BCA, 91165-9, CMP, 07455-8, 1988-03, 91922- 0 #### [facility] ([id number]) [address] [place] [address] 12458 #### FEPR #### [facility] ([id number]) [address], [address] [place] [address] MCH (RBC) [Entitic mass] 26.4 pg Low 27-34 [facility] Comment on above: Performed By: #### C AMARILYS, 74834-2, CMP, 22399-5, 1988-03, 0 #### [facility] ([id number]) [address] [place] [address] 91483 #### FEPR #### [facility] ([id number]) [address], [address] [place] [address] MCHC (RBC) [Mass/Vol] 32.3 g/dL Normal 32-36 [facility] Comment on above: Performed By: #### C AMARILYS, 40081-4, CMP, , 1988-03, 00802- 0 #### [facility] ([id number]) [address] [place] [address] 73867 #### FEPR #### [facility] ([id number]) [address], [address] [place] [address] MCV (RBC) [Entitic vol] 82 fL Normal 80-100 [facility] Comment on above: Performed By: #### C AMARILYS, 50428-8, CMP, , 1988-03, 65406 0 #### [facility] ([id number]) [address] [place] [address] #### FEPR #### [facility] ([id number]) [address], [address] [place] [address] Monocytes (Bld) [#/Vol] 0.4 10*3/uL Normal 0-0.9 [facility] Comment on above: Performed By: #### C BCA, 68234-3, CMP, , 1988-03, 47811 #### [facility] ([id number]) [address] [place] [address] #### FEPR #### [facility] ([id number]) [address] [facility], [address] [place] [address] Monocytes/100 WBC (Bld) 7.1 % Normal [facility] Comment on above: Performed By: #### C AMARILYS, 47931-1, CMP, 70923-3, 1988-03, 87056- 0 #### [facility] ([id number]) [address] [place] [id number] #### FEPR #### [facility] ([id number]) [address] [facility], [address] [place] [address] Neutrophils/100 WBC (Bld) 70.4 % Normal [facility] Comment on above: Performed By: #### C AMARILYS, 62032-4, CMP, 50941-4, 1988-03, 01170- 0 #### [facility] ([id number]) [address] [place] [address] #### FEPR #### [facility] ([id number]) [address] [facility], [address] [place] [id number] Platelet mean volume (Bld) [Entitic vol] 6.4 fL Low 7-12 [facility] Comment on above: Performed By: #### C AMARILYS, 10595-8, CMP, 55011-2, 1988-03, 61670 0 #### [facility] ([id number]) [address] [place] [address] 59366 #### FEPR #### [facility] ([id number]) [address] [facility] [address] [place] [address] Platelets (Bld) [#/Vol] 278 10*3/uL Normal 150-450 [facility] Comment on above: Performed By: #### C BCA, 98891-0, CMP, 47513-4, 1988-03, 53467- 0 #### [facility] ([id number]) [address] [place] [address] 44273 #### FEPR #### [facility] ([id number]) [address], [address] [place] [address] RBC COUNT 4.30 X10E12/L Normal 4.10-5.70 [facility] Comment on above: Performed By: #### C BCA, 98380-7, CMP, 04425-7, 1988-03, 67767- 0 #### [facility] ([id number]) [address] [place] [address] 39290 #### FEPR #### [facility] ([id number]) [address], [address] [place] [address] WBC (Bld) [#/Vol] 6.2 10*3/uL Normal 4.0-11.[address] [facility] Comment on above: Performed By: #### C BCA, 52058-3, CMP, 97380-9, 1988-03, 94453- 0 #### [facility] ([id number]) [address] [place] [address] 76400 #### FEPR #### [facility] ([id number]) [address], [address] [place] [address] COMPREHENSIVE METABOLIC PANE John 08-02-2024 Albumin [Mass/Vol] 3.1 g/dL Low 3.2-5.[address] [facility] Comment on above: Performed By: #### C BCA, 75220-0, CMP, 87192-0, 1988-03, 99591- 0 #### [facility] ([id number]) [address] [place] [address] 79523 #### FEPR #### [facility] ([id number]) [address], [address] [place] [address] ALP [Catalytic activity/Vol] 121 U/L Normal 39-130 [facility] Comment on above: Performed By: #### C BCA, 33904-3, CMP, 82222-4, 1988-03, 53497- 0 #### [facility] ([id number]) [address] [place] [address] 81152 #### FEPR #### [facility] ([id number]) [address], [address] [place] [address] ALT [Catalytic activity/Vol] 42 U/L High 0-40 [facility] Comment on above: Performed By: #### C BCA, 32542-5, CMP, 82012-1, 1988-03, 95172- 0 #### [facility] ([id number]) [address] [place] [address] 77697 #### FEPR #### [facility] ([id number]) [address] [place] [address], [address] [place] [address] Anion gap [Moles/Vol] 9 mmol/L Normal 5-15 [facility] Comment on above: Performed By: #### C BCA, 52528-9, CMP, 95576-2, 1988-03, 92531- 0 #### [facility] ([id number]) [address] [place] [address] 58761 #### FEPR #### [facility] ([id number]) [address], [address] [place] [address] AST [Catalytic activity/Vol] 24 U/L Normal 0-41 [facility] Comment on above: Performed By: #### C BCA, 43582-1, CMP, 46044-2, 1988-03, 01215- 0 #### [facility] ([id number]) [address] [place] [address] 08956 #### FEPR #### [facility] ([id number]) [address], [address] [place] [address] Bilirubin [Mass/Vol] 0.5 mg/dL Normal 0.3-1.2 [facility] Comment on above: Performed By: #### C BCA, 23232-4, CMP, 54690-7, 1988-03, 21362- 0 #### [facility] ([id number]) [address] [place] [address] 20236 #### FEPR #### [facility] ([id number]) [address], [address] [place] [address] Calcium [Mass/Vol] 8.3 mg/dL Low 8.5-10.[address] [facility] Comment on above: Performed By: #### C BCA, 80107-6, CMP, 00766-4, 1988-03, 56040- 0 #### [facility] ([id number]) [address] [place] [address] 96721 #### FEPR #### [facility] ([id number]) [address], [address] [place] [address] Chloride [Moles/Vol] 104 mmol/L Normal 98-109 [facility] Comment on above: Performed By: #### C BCA, 73872-9, CMP, 80338-1, 1988-03, 12987- 0 #### [facility] ([id number]) [address] [place] [address] 33552 #### FEPR #### [facility] ([id number]) [address], [address] [place] [address] CO2 [Moles/Vol] 24 mmol/L Normal 22-32 [facility] Comment on above: Performed By: #### C BCA, 99131-6, CMP, 80115-9, 1988-03, 74578 0 #### [facility] ([id number]) [address] [place] [address] 11277 #### FEPR #### [facility] ([id number]) [address], [address] [place] [address] Creatinine [Mass/Vol] 0.81 mg/dL Normal 0.70-1.20 [facility] Comment on above: Result Comment: METH OD TRACEABLE TO IDMS STANDARD Performed By: #### C BCA, 16039-5, CMP, 89804-5, 1988-03, 45565-7 #### [facility] ([id number]) [address] [place] [address] 88385 #### FEPR #### [facility] ([id number]) [address], [address] [place] [address] eGFR (CKD-EPI) NON-RACE DEPENDENT >90 Normal >59 [facility] Comment on above: Result Comment: Reported eGFR is based on the CKD-EPI 2020 equation that does not use a race coefficient. Performed By: #### C BCA, 81442-7, CMP, 16092-6, 1988-03, 31822-9 #### [facility] ([id number]) [address] [place] [address] 25343 #### FEPR #### [facility] ([id number]) [address], [address] [place] [address] Glucose [Mass/Vol] 108 mg/dL High 65-[address] [facility] Comment on above: Performed By: #### C BCA, 47073-0, CMP, 09020-0, 1988-03, 51017- 0 #### [facility] ([id number]) [address] [place] [address] 18675 #### FEPR #### [facility] ([id number]) [address], [address] [place] [address] Potassium [Moles/Vol] 3.7 mmol/L Normal 3.5-5.0 [facility] Comment on above: Performed By: #### C BCA, 48327-6, CMP, 64525-0, 1988-03, 54804- 0 #### [facility] ([id number]) [address] [place] [address] 52354 #### FEPR #### [facility] ([id number]) [address], [address] [place] [address] Protein [Mass/Vol] 7.0 g/dL Normal 6.0-8.[address] [facility] Comment on above: Performed By: #### C BCA, 60240-5, CMP, 64523-6, 1988-03, 69322- 0 #### [facility] ([id number]) [address] [place] [address] 02518 #### FEPR #### [facility] ([id number]) [address], [address] [place] [address] Sodium [Moles/Vol] 137 mmol/L Normal 134-[address] [facility] Comment on above: Performed By: #### C BCA, 81552-4, CMP, 41799-9, 1988-03, 79283- 0 #### [facility] ([id number]) [address] [place] [address] 26900 #### FEPR #### [facility] ([id number]) [address], [address] [place] [address] Urea nitrogen [Mass/Vol] 18 mg/dL Normal 5-27 [facility] Comment on above: Performed By: #### C BCA, 75291-4, CMP, 74448-3, 1988-03, 50604- 0 #### [facility] ([id number]) [address] [place] [address] 42923 #### FEPR #### [facility] ([id number]) [address], [address] [place] [address] CRP [Mass/Vol]on 08-02-2024 C REACTIVE PROTEIN 1.7 mg/dL High 0.000-0.744 [facility] Comment on above: Performed By: #### C AMARILYS, 62642-4, CMP, 74404-0, 1988-03, 99552- 0 #### [facility] ([id number]) [address] [place] [address] 77084 #### FEPR #### [facility] ([id number]) [address], [address] [place] [address] MAGNESIUMon 08-02-2024 Magnesium [Mass/Vol] 2.1 mg/dL Normal 1.8-2.6 [facility] Comment on above: Performed By: #### C AMARILYS, 79245-8, CMP, 63717-4, 1988-03, 40566- 0 #### [facility] ([id number]) [address] [place] [address] 34371 #### FEPR #### [facility] ([id number]) [address], [address] [place] [address] CBC AND AUTO DIFFon 08-01-20 24 ABSOLUTE BASOPHIL 0.0 X10E9/L Normal 0.0-0.[address] [facility] Comment on above: Performed By: #### 6 30-4 #### [facility] ([id number]) [address], [address] [place] [address] ABSOLUTE NEUTROPHIL 4.4 X10E9/L Normal 1.5-6.6 [facility] Comment on above: Performed By: #### 6 30-4 #### [facility] ([id number]) [address] [place] [address], [address] [place] [address] Basophils/100 WBC (Bld) 0.6 % Normal [facility] Comment on above: Performed By: #### 6 30-4 #### [facility] ([id number]) [address], [address] [place] [address] Eosinophils (Bld) [#/Vol] 0.3 10*3/uL Normal 0.0-0.4 [facility] Comment on above: Performed By: #### 6 30-4 #### [facility] ([id number]) [address] [address] [place] [address] Eosinophils/100 WBC (Bld) 5.0 % Normal [facility] Comment on above: Performed By: #### 6 30-4 #### [facility] ([id number]) [address] [facility] [address] [place] [address] Erythrocyte distribution width (RBC) [Ratio] 16.6 % High 11.5-15.0 [facility] Comment on above: Performed By: #### 6 30-4 #### [facility] ([id number]) [address], [address] [place] [address] Hematocrit (Bld) [Volume fraction] 35.3 % Low 39-49 [facility] Comment on above: Performed By: #### 6 30-4 #### [facility] ([id number]) [address] [address] [place] [address] Hemoglobin (Bld) [Mass/Vol] 11.4 g/dL Low 13.0-17.0 [facility] Comment on above: Performed By: #### 6 30-4 #### [facility] ([id number]) [address], [address] [place] [address] Lymphocytes (Bld) [#/Vol] 1.1 10*3/uL Normal 1.0-3.5 [facility] Comment on above: Performed By: #### 6 30-4 #### [facility] ([id number]) [address] [address] [place] [address] Lymphocytes/100 WBC (Bld) 17.2 % Normal [facility] Comment on above: Performed By: #### 6 30-4 #### [facility] ([id number]) [address], [address] [place] [address] MCH (RBC) [Entitic mass] 26.8 pg Low 27-34 [facility] Comment on above: Performed By: #### 6 30-4 #### [facility] ([id number]) [address], [address] [place] [address] MCHC (RBC) [Mass/Vol] 32.3 g/dL Normal 32-36 [facility] Comment on above: Performed By: #### 6 30-4 #### [facility] ([id number]) [address], [address] [place] [address] MCV (RBC) [Entitic vol] 83 fL Normal 80-100 [facility] Comment on above: Performed By: #### 6 30-4 #### [facility] ([id number]) [address], [address] [place] [address] Monocytes (Bld) [#/Vol] 0.4 10*3/uL Normal 0-0.9 [facility] Comment on above: Performed By: #### 6 30-4 #### [facility] ([id number]) [address], [address] [place] [address] Monocytes/100 WBC (Bld) 7.2 % Normal [facility] Comment on above: Performed By: #### 6 30-4 #### [facility] ([id number]) [address], [address] [place] [address] Neutrophils/100 WBC (Bld) 70.0 % Normal [facility] Comment on above: Performed By: #### 6 30-4 #### [facility] ([id number]) [address], [address] [place] [address] Platelet mean volume (Bld) [Entitic vol] 6.1 fL Low 7-12 [facility] Comment on above: Performed By: #### 6 30-4 #### [facility] ([id number]) [address], [address] [place] [address] Platelets (Bld) [#/Vol] 310 10*3/uL Normal 150-450 [facility] Comment on above: Performed By: #### 6 30-4 #### [facility] ([id number]) [address], [address] [place] [address] RBC COUNT 4.24 X10E12/L Normal 4.10-5.70 [facility] Comment on above: Performed By: #### 6 30-4 #### [facility] ([id number]) [address], [address] [place] [address] WBC (Bld) [#/Vol] 6.2 10*3/uL Normal 4.0-11.[address] [facility] Comment on above: Performed By: #### 6 30-4 #### [facility] ([id number]) [address], [address] [place] [address] COMPREHENSIVE METABOLIC PANE John 08-01-2024 Albumin [Mass/Vol] 3.4 g/dL Normal 3.2-5.[address] [facility] Comment on above: Performed By: #### 6 30-4 #### [facility] ([id number]) [address], [address] [place] [address] ALP [Catalytic activity/Vol] 131 U/L High 39-130 [facility] Comment on above: Performed By: #### 6 30-4 #### [facility] ([id number]) [address], [address] [place] [address] ALT [Catalytic activity/Vol] 52 U/L High 0-40 [facility] Comment on above: Performed By: #### 6 30-4 #### [facility] ([id number]) [address], [address] [place] [address] Anion gap [Moles/Vol] 5 mmol/L Normal 5-15 [facility] Comment on above: Performed By: #### 6 30-4 #### [facility] ([id number]) [address], [address] [place] [address] AST [Catalytic activity/Vol] 28 U/L Normal 0-41 [facility] Comment on above: Performed By: #### 6 30-4 #### [facility] ([id number]) [address], [address] [place] [address] Bilirubin [Mass/Vol] 0.4 mg/dL Normal 0.3-1.2 [facility] Comment on above: Performed By: #### 6 30-4 #### [facility] ([id number]) [address] [place] [address] Calcium [Mass/Vol] 8.7 mg/dL Normal 8.5-10.[address] [facility] Comment on above: Performed By: #### 6 30-4 #### [facility] ([id number]) [address], [address] [place] [address] Chloride [Moles/Vol] 105 mmol/L Normal 98-109 [facility] Comment on above: Performed By: #### 6 30-4 #### [facility] ([id number]) [address], [address] [place] [address] CO2 [Moles/Vol] 27 mmol/L Normal 22-32 [facility] Comment on above: Performed By: #### 6 30-4 #### [facility] ([id number]) [address], [address] [place] [address] Creatinine [Mass/Vol] 0.78 mg/dL Normal 0.70-1.20 [facility] Comment on above: Result Comment: METH OD TRACEABLE TO IDMS STANDARD Performed By: #### 6 30-4 #### [facility] ([id number]) [address], [address] [place] [address] eGFR (CKD-EPI) NON-RACE DEPENDENT >90 Normal >59 [facility] Comment on above: Result Comment: Reported eGFR is based on the CKD-EPI 2020 equation that does not use a race coefficient. Performed By: #### 6 30-4 #### [facility] ([id number]) [address], [address] [place] [address] Glucose [Mass/Vol] 108 mg/dL High 65-[address] [facility] Comment on above: Performed By: #### 6 30-4 #### [facility] ([id number]) [address], [address] [place] [address] Potassium [Moles/Vol] 4.3 mmol/L Normal 3.5-5.0 [facility] Comment on above: Performed By: #### 6 30-4 #### [facility] ([id number]) [address], [address] [place] [address] Protein [Mass/Vol] 7.6 g/dL Normal 6.0-8.[address] [facility] Comment on above: Performed By: #### 6 30-4 #### [facility] ([id number]) [address], [address] [place] [address] Sodium [Moles/Vol] 137 mmol/L Normal 134-[address] [facility] Comment on above: Performed By: #### 6 30-4 #### [facility] ([id number]) [address], [address] [place] [address] Urea nitrogen [Mass/Vol] 20 mg/dL Normal 5-27 [facility] Comment on above: Performed By: #### 6 30-4 #### [facility] ([id number]) [address], [address] [place] [address] MAGNESIUMon 08-01-2024 Magnesium [Mass/Vol] 2.4 mg/dL Normal 1.8-2.6 [facility] Comment on above: Performed By: #### 6 30-4 #### [facility] ([id number]) [address], [address] [place] [address] Vancomycin trough [Mass/Vol] on 08-01-2024 VANCOMYCIN TROUGH 16.2 ug/mL Normal 5.0-20.0 [facility] Comment on above: Performed By: #### 6 30-4 #### [facility] ([id number]) [address], [address] [place] [address] CBC AND AUTO DIFFon 07-31-20 ABSOLUTE BASOPHIL 0.0 X10E9/L Normal 0.0-0.[address] [facility] Comment on above: Performed By: #### U A #### [facility] ([id number]) [address], [address] [place] [address] ABSOLUTE NEUTROPHIL 4.4 X10E9/L Normal 1.5-6.6 [facility] Comment on above: Performed By: #### U A #### [facility] ([id number]) [address], [address] [place] [address] Basophils/100 WBC (Bld) 0.6 % Normal [facility] Comment on above: Performed By: #### U A #### [facility] ([id number]) [address] [address] [place] [address] Eosinophils (Bld) [#/Vol] 0.3 10*3/uL Normal 0.0-0.4 [facility] Comment on above: Performed By: #### U A #### [facility] ([id number]) [address], [address] [place] [address] Eosinophils/100 WBC (Bld) 4.5 % Normal [facility] Comment on above: Performed By: #### U A #### [facility] ([id number]) [address] [address] [place] [address] Erythrocyte distribution width (RBC) [Ratio] 16.9 % High 11.5-15.0 [facility] Comment on above: Performed By: #### U A #### [facility] ([id number]) [address] [address] [place] [address] Hematocrit (Bld) [Volume fraction] 32.2 % Low 39-49 [facility] Comment on above: Performed By: #### U A #### [facility] ([id number]) [address] [address] [place] [address] Hemoglobin (Bld) [Mass/Vol] 10.5 g/dL Low 13.0-17.0 [facility] Comment on above: Performed By: #### U A #### [facility] ([id number]) [address] [address] [place] [address] Lymphocytes (Bld) [#/Vol] 1.3 10*3/uL Normal 1.0-3.5 [facility] Comment on above: Performed By: #### U A #### [facility] ([id number]) [address] [address] [place] [address] Lymphocytes/100 WBC (Bld) 19.9 % Normal [facility] Comment on above: Performed By: #### U A #### [facility] ([id number]) [address] [address] [place] [address] MCH (RBC) [Entitic mass] 26.6 pg Low 27-34 [facility] Comment on above: Performed By: #### U A #### [facility] ([id number]) [address] [address] [place] [address] MCHC (RBC) [Mass/Vol] 32.4 g/dL Normal 32-36 [facility] Comment on above: Performed By: #### U A #### [facility] ([id number]) [address], [address] [place] [address] MCV (RBC) [Entitic vol] 82 fL Normal 80-100 [facility] Comment on above: Performed By: #### U A #### [facility] ([id number]) [address], [address] [place] [address] Monocytes (Bld) [#/Vol] 0.4 10*3/uL Normal 0-0.9 [facility] Comment on above: Performed By: #### U A #### [facility] ([id number]) [address] [address] [place] [address] Monocytes/100 WBC (Bld) 6.5 % Normal [facility] Comment on above: Performed By: #### U A #### [facility] ([id number]) [address] [address] [place] [address] Neutrophils/100 WBC (Bld) 68.5 % Normal [facility] Comment on above: Performed By: #### U A #### [facility] ([id number]) [address] [address] [place] [address] Platelet mean volume (Bld) [Entitic vol] 6.3 fL Low 7-12 [facility] Comment on above: Performed By: #### U A #### [facility] ([id number]) [address] [address] [place] [address] Platelets (Bld) [#/Vol] 297 10*3/uL Normal 150-450 [facility] Comment on above: Performed By: #### U A #### [facility] ([id number]) [address], [address] [place] [address] RBC COUNT 3.94 X10E12/L Low 4.10-5.70 [facility] Comment on above: Performed By: #### U A #### [facility] ([id number]) [address], [address] [place] [address] WBC (Bld) [#/Vol] 6.5 10*3/uL Normal 4.0-11.[address] [facility] Comment on above: Performed By: #### U A #### [facility] ([id number]) [address] [facility] [place] [address] COMPREHENSIVE METABOLIC PANE John 07-31-2024 Albumin [Mass/Vol] 3.0 g/dL Low 3.2-5.[address] [facility] Comment on above: Performed By: #### U A #### [facility] ([id number]) [address] [facility] [address] [place] [address] ALP [Catalytic activity/Vol] 125 U/L Normal 39-130 [facility] Comment on above: Performed By: #### U A #### [facility] ([id number]) [address] [place] [address] ALT [Catalytic activity/Vol] 57 U/L High 0-40 [facility] Comment on above: Performed By: #### U A #### [facility] ([id number]) [address], [address] [place] [address] Anion gap [Moles/Vol] 8 mmol/L Normal 5-15 [facility] Comment on above: Performed By: #### U A #### [facility] ([id number]) [address], [address] [place] [address] AST [Catalytic activity/Vol] 34 U/L Normal 0-41 [facility] Comment on above: Performed By: #### U A #### [facility] ([id number]) [address], [address] [place] [address] Bilirubin [Mass/Vol] 0.5 mg/dL Normal 0.3-1.2 [facility] Comment on above: Performed By: #### U A #### [facility] ([id number]) [address], [address] [place] [address] Calcium [Mass/Vol] 8.7 mg/dL Normal 8.5-10.[address] [facility] Comment on above: Performed By: #### U A #### [facility] ([id number]) [address] [address] [place] [address] Chloride [Moles/Vol] 105 mmol/L Normal 98-109 [facility] Comment on above: Performed By: #### U A #### [facility] ([id number]) [address] [address] [place] [address] CO2 [Moles/Vol] 27 mmol/L Normal 22-32 [facility] Comment on above: Performed By: #### U A #### [facility] ([id number]) [address] [address] [place] [address] Creatinine [Mass/Vol] 0.83 mg/dL Normal 0.70-1.20 [facility] Comment on above: Result Comment: METH OD TRACEABLE TO IDMS STANDARD Performed By: #### U A #### [facility] ([id number]) [address], [address] [place] [address] eGFR (CKD-EPI) NON-RACE DEPENDENT >90 Normal >59 [facility] Comment on above: Result Comment: Reported eGFR is based on the CKD-EPI 2020 equation that does not use a race coefficient. Performed By: #### U A #### [facility] ([id number]) [address], [address] [place] [address] Glucose [Mass/Vol] 131 mg/dL High 65-[address] [facility] Comment on above: Performed By: #### U A #### [facility] ([id number]) [address], [address] [place] [address] Potassium [Moles/Vol] 3.8 mmol/L Normal 3.5-5.0 [facility] Comment on above: Performed By: #### U A #### [facility] ([id number]) [address], [address] [place] [address] Protein [Mass/Vol] 6.9 g/dL Normal 6.0-8.[address] [facility] Comment on above: Performed By: #### U A #### [facility] ([id number]) [address], [address] [place] [address] Sodium [Moles/Vol] 140 mmol/L Normal 134-[address] [facility] Comment on above: Performed By: #### U A #### [facility] ([id number]) [address], [address] [place] [address] Urea nitrogen [Mass/Vol] 20 mg/dL Normal 5-27 [facility] Comment on above: Performed By: #### U A #### [facility] ([id number]) [address], [address] [place] [address] CRP [Mass/Vol]on 07-31-2024 C REACTIVE PROTEIN 4.9 mg/dL High 0.000-0.744 [facility] Comment on above: Performed By: #### 6 30-4 #### [facility] ([id number]) [address], [address] [place] [address] MAGNESIUMon 07-31-2024 Magnesium [Mass/Vol] 2.2 mg/dL Normal 1.8-2.6 [facility] Comment on above: Performed By: #### 6 30-4 #### [facility] ([id number]) [address], [address] [place] [address] Magnesium [Mass/Vol] 1.9 mg/dL Normal 1.8-2.6 [facility] Comment on above: Performed By: #### U A #### [facility] ([id number]) [address], [address] [place] [address] POTASSIUMon 07-31-2024 Potassium [Moles/Vol] 3.9 mmol/L Normal 3.5-5.0 [facility] Comment on above: Performed By: #### 6 30-4 #### [facility] ([id number]) [address], [address] [place] [address] Procalcitonin IA [Mass/Vol]o n 07-31-2024 PROCALCITONIN 0.08 ng/mL High <0.05 [facility] Comment on above: Result Comment: NOTE <0.50 ng/mL - Low risk of severe sepsis and/or septic shock. <2.00 ng/mL - Recommend retesting within 6-24 hours. >2.00 ng/mL - High risk of sepsis and/or septic shock. Performed By: #### 6 30-4 #### [facility] ([id number]) [address], [address] [place] [address] BASIC METABOLIC PANLon 07-30 Anion gap [Moles/Vol] 7 mmol/L Normal 5-15 [facility] Comment on above: Performed By: #### 3 5492-8 #### [facility] ([id number]) [address], [address] [place] [address] Calcium [Mass/Vol] 9.0 mg/dL Normal 8.5-10.[address] [facility] Comment on above: Performed By: #### 3 5492-8 #### [facility] ([id number]) [address], [address] [place] [address] Chloride [Moles/Vol] 106 mmol/L Normal 98-109 [facility] Comment on above: Performed By: #### 3 5492-8 #### [facility] ([id number]) [address], [address] [place] [address] CO2 [Moles/Vol] 25 mmol/L Normal 22-32 [facility] Comment on above: Performed By: #### 3 5492-8 #### [facility] ([id number]) [address], [address] [place] [address] Creatinine [Mass/Vol] 0.96 mg/dL Normal 0.70-1.20 [facility] Comment on above: Result Comment: METH OD TRACEABLE TO IDMS STANDARD Performed By: #### 3 5492-8 #### [facility] ([id number]) [address], [address] [place] [address] GFR/1.73 sq M.predicted among non-blacks MDRD (S/P/Bld) [Vol rate/Area] 84 mL/min/{1.73_m2} Normal >59 [facility] Comment on above: Result Comment: Reported eGFR is based on the CKD-EPI 2020 equation that does not use a race coefficient. Performed By: #### 3 5492-8 #### [facility] ([id number]) [address], [address] [place] [address] Glucose [Mass/Vol] 95 mg/dL Normal 65-[address] [facility] Comment on above: Performed By: #### 3 5492-8 #### [facility] ([id number]) [address], [address] [place] [address] Potassium [Moles/Vol] 4.6 mmol/L Normal 3.5-5.0 [facility] Comment on above: Result Comment: SPEC IMEN HEMOLYZED, RESULTS INCREASED Performed By: #### 3 5492-8 #### [facility] ([id number]) [address], [address] [place] [address] Sodium [Moles/Vol] 138 mmol/L Normal 134-[address] [facility] Comment on above: Performed By: #### 3 5492-8 #### [facility] ([id number]) [address], [address] [place] [address] Urea nitrogen [Mass/Vol] 21 mg/dL Normal 5-27 [facility] Comment on above: Performed By: #### 3 5492-8 #### [facility] ([id number]) [address], [address] [place] [address] BLOOD CULTUREon 07-30-2024 Bacteria identified Aer cx Nom (Bld) SPECIMEN NOTES SUBOPTIMAL VOLUME OF BLOOD COLLECTED, RESULTS MAY BE AFFECTED. CULTURE RESULTS NO GROWTH 5 DAYS Normal [facility] Comment on above: Performed By: #### 6 30-4 #### [facility] ([id number]) [address], [address] [place] [address] Bacteria identified Aer cx Nom (Bld) SPECIMEN NOTES SUBOPTIMAL VOLUME OF BLOOD COLLECTED, RESULTS MAY BE AFFECTED. CULTURE RESULTS NO GROWTH 5 DAYS Normal [facility] Comment on above: Performed By: #### 6 30-4 #### [facility] ([id number]) [address], [facility] [address] [place] [address] CBC AND AUTO DIFFon 07-30-20 24 ABSOLUTE BASOPHIL 0.1 X10E9/L Normal 0.0-0.[address] [facility] Comment on above: Performed By: #### 3 5492-8 #### [facility] ([id number]) [address], [address] [place] [address] ABSOLUTE NEUTROPHIL 5.5 X10E9/L Normal 1.5-6.6 [facility] Comment on above: Performed By: #### 3 5492-8 #### [facility] ([id number]) [address], [address] [place] [address] Basophils/100 WBC (Bld) 1.1 % Normal [facility] Comment on above: Performed By: #### 3 5492-8 #### [facility] ([id number]) [address], [address] [place] [address] Eosinophils (Bld) [#/Vol] 0.2 10*3/uL Normal 0.0-0.4 [facility] Comment on above: Performed By: #### 3 5492-8 #### [facility] ([id number]) [address], [address] [place] [address] Eosinophils/100 WBC (Bld) 2.7 % Normal [facility] Comment on above: Performed By: #### 3 5492-8 #### [facility] ([id number]) [address], [address] [place] [address] Erythrocyte distribution width (RBC) [Ratio] 16.5 % High 11.5-15.0 [facility] Comment on above: Performed By: #### 3 5492-8 #### [facility] ([id number]) [address], [address] [place] [address] Hematocrit (Bld) [Volume fraction] 36.2 % Low 39-49 [facility] Comment on above: Performed By: #### 3 5492-8 #### [facility] ([id number]) [address] [address] [place] [address] Hemoglobin (Bld) [Mass/Vol] 12.0 g/dL Low 13.0-17.0 [facility] Comment on above: Performed By: #### 3 5492-8 #### [facility] ([id number]) [address], [address] [place] [address] Lymphocytes (Bld) [#/Vol] 1.5 10*3/uL Normal 1.0-3.5 [facility] Comment on above: Performed By: #### 3 5492-8 #### [facility] ([id number]) [address], [address] [place] [address] Lymphocytes/100 WBC (Bld) 19.1 % Normal [facility] Comment on above: Performed By: #### 3 5492-8 #### [facility] ([id number]) [address], [address] [place] [address] MCH (RBC) [Entitic mass] 26.9 pg Low 27-34 [facility] Comment on above: Performed By: #### 3 5492-8 #### [facility] ([id number]) [address], [address] [place] [address] MCHC (RBC) [Mass/Vol] 33.2 g/dL Normal 32-36 [facility] Comment on above: Performed By: #### 3 5492-8 #### [facility] ([id number]) [address], [address] [place] [address] MCV (RBC) [Entitic vol] 81 fL Normal 80-100 [facility] Comment on above: Performed By: #### 3 5492-8 #### [facility] ([id number]) [address], [address] [place] [address] Monocytes (Bld) [#/Vol] 0.5 10*3/uL Normal 0-0.9 [facility] Comment on above: Performed By: #### 3 5492-8 #### [facility] ([id number]) [address], [address] [place] [address] Monocytes/100 WBC (Bld) 6.7 % Normal [facility] Comment on above: Performed By: #### 3 5492-8 #### [facility] ([id number]) [address], [address] [place] [address] Neutrophils/100 WBC (Bld) 70.4 % Normal [facility] Comment on above: Performed By: #### 3 5492-8 #### [facility] ([id number]) [address], [address] [place] [address] Platelet mean volume (Bld) [Entitic vol] 7.1 fL Normal 7-12 [facility] Comment on above: Performed By: #### 3 5492-8 #### [facility] ([id number]) [address], [address] [place] [address] Platelets (Bld) [#/Vol] 393 10*3/uL Normal 150-450 [facility] Comment on above: Performed By: #### 3 5492-8 #### [facility] ([id number]) [address], [address] [place] [address] RBC COUNT 4.46 X10E12/L Normal 4.10-5.70 [facility] Comment on above: Performed By: #### 3 5492-8 #### [facility] ([id number]) [address], [address] [place] [address] WBC (Bld) [#/Vol] 7.8 10*3/uL Normal 4.0-11.[address] [facility] Comment on above: Performed By: #### 3 5492-8 #### [facility] ([id number]) [address], [address] [place] [address] Lactate (P mary alice) [Moles/Vol]o n 07-30-2024 LACTATE W/REFLEX 1.2 mmol/L Normal 0.4-2.0 [facility] Comment on above: Result Comment: Result did not trigger repeat Lactate, re-order if needed. Performed By: #### U A #### [facility] ([id number]) [address], [address] [place] [address] MAGNESIUMon 07-30-2024 Magnesium [Mass/Vol] 2.0 mg/dL Normal 1.8-2.6 [facility] Comment on above: Result Comment: SPEC IMEN HEMOLYZED, RESULTS INCREASED Performed By: #### U A #### [facility] ([id number]) [address], [address] [place] [address] Natriuretic peptide B [Mass/ Vol]on 07-30-2024 Natriuretic peptide B (Bld) [Mass/Vol] 10 pg/mL Normal <100.0 [facility] Comment on above: Performed By: #### U A #### [facility] ([id number]) [address], [address] [place] [address] Troponin I.cardiac High sens itivity method [Mass/Vol]on 07-30-2024 1 HOUR TROP I, HIGH SENSITIVITY 12 ng/L Normal <21 [facility] Comment on above: Performed By: #### U A #### [facility] ([id number]) [address], [address] [place] [address] TROPONIN I, HIGH SENSITIVITY 11 ng/L Normal <21 [facility] Comment on above: Performed By: #### U A #### [facility] ([id number]) [address], [address] [place] [address] XR FOOT RT MIN 3 VWSon 07-30 [...] Patrick MD on 07/30/2024 7:10 PM Normal [facility] XR TIBIA FIBULA RT MIN [...] Mo Alba on 07/30/2024 7:14 PM Normal [facility] Opticell Alginate AGon 07-02 Applied in clinic today. MANUALLY TRANSCRIBED RESULTS [facility] BASIC METABOLIC PANLon 06-10 Anion gap [Moles/Vol] 8 mmol/L Normal 5-15 [facility] Comment on above: Performed By: #### 3 5492-8 #### [facility] ([id number]) [address], [address] [place] [address] Calcium [Mass/Vol] 9.1 mg/dL Normal 8.5-10.[address] [facility] Comment on above: Performed By: #### 3 5492-8 #### [facility] ([id number]) [address], [address] [place] [address] Chloride [Moles/Vol] 102 mmol/L Normal 98-109 [facility] Comment on above: Performed By: #### 3 5492-8 #### [facility] ([id number]) [address], [address] [place] [address] CO2 [Moles/Vol] 27 mmol/L Normal 22-32 [facility] Comment on above: Performed By: #### 3 5492-8 #### [facility] ([id number]) [address], [address] [place] [address] Creatinine [Mass/Vol] 0.80 mg/dL Normal 0.70-1.20 [facility] Comment on above: Result Comment: METH OD TRACEABLE TO IDMS STANDARD Performed By: #### 3 5492-8 #### [facility] ([id number]) [address], [address] [place] [address] eGFR (CKD-EPI) NON-RACE DEPENDENT >90 Normal >59 [facility] Comment on above: Result Comment: Reported eGFR is based on the CKD-EPI 2020 equation that does not use a race coefficient. Performed By: #### 3 5492-8 #### [facility] ([id number]) [address] [address] [place] [address] Glucose [Mass/Vol] 102 mg/dL High 65-[address] [facility] Comment on above: Performed By: #### 3 5492-8 #### [facility] ([id number]) [address] [address] [place] [address] Potassium [Moles/Vol] 3.8 mmol/L Normal 3.5-5.0 [facility] Comment on above: Performed By: #### 3 5492-8 #### [facility] ([id number]) [address] [address] [place] [address] Sodium [Moles/Vol] 137 mmol/L Normal 134-[address] [facility] Comment on above: Performed By: #### 3 5492-8 #### [facility] ([id number]) [address] [address] [place] [address] Urea nitrogen [Mass/Vol] 13 mg/dL Normal 5-27 [facility] Comment on above: Performed By: #### 3 5492-8 #### [facility] ([id number]) [address] [address] [place] [address] CBC AND AUTO DIFFon 07-25-20 24 ABSOLUTE BASOPHIL 0.0 X10E9/L Normal 0.0-0.[address] [facility] Comment on above: Performed By: #### 3 5492-8 #### [facility] ([id number]) [address] [address] [place] [address] ABSOLUTE NEUTROPHIL 5.3 X10E9/L Normal 1.5-6.6 [facility] Comment on above: Performed By: #### 3 5492-8 #### [facility] ([id number]) [address], [address] [place] [address] Basophils/100 WBC (Bld) 0.5 % Normal [facility] Comment on above: Performed By: #### 3 5492-8 #### [facility] ([id number]) [address], [address] [place] [address] Eosinophils (Bld) [#/Vol] 0.2 10*3/uL Normal 0.0-0.4 [facility] Comment on above: Performed By: #### 3 5492-8 #### [facility] ([id number]) [address], [address] [place] [address] Eosinophils/100 WBC (Bld) 3.2 % Normal [facility] Comment on above: Performed By: #### 3 5492-8 #### [facility] ([id number]) [address], [address] [place] [address] Erythrocyte distribution width (RBC) [Ratio] 16.6 % High 11.5-15.0 [facility] Comment on above: Performed By: #### 3 5492-8 #### [facility] ([id number]) [address], [address] [place] [address] Hematocrit (Bld) [Volume fraction] 34.7 % Low 39-49 [facility] Comment on above: Performed By: #### 3 5492-8 #### [facility] ([id number]) [address], [address] [place] [address] Hemoglobin (Bld) [Mass/Vol] 11.5 g/dL Low 13.0-17.0 [facility] Comment on above: Performed By: #### 3 5492-8 #### [facility] ([id number]) [address] [place] [address] Lymphocytes (Bld) [#/Vol] 1.1 10*3/uL Normal 1.0-3.5 [facility] Comment on above: Performed By: #### 3 5492-8 #### [facility] ([id number]) [address], [address] [place] [address] Lymphocytes/100 WBC (Bld) 15.5 % Normal [facility] Comment on above: Performed By: #### 3 5492-8 #### [facility] ([id number]) [address] [facility] [address] [place] [address] MCH (RBC) [Entitic mass] 27.7 pg Normal 27-34 [facility] Comment on above: Performed By: #### 3 5492-8 #### [facility] ([id number]) [address], [address] [place] [address] MCHC (RBC) [Mass/Vol] 33.0 g/dL Normal 32-36 [facility] Comment on above: Performed By: #### 3 5492-8 #### [facility] ([id number]) [address], [address] [place] [address] MCV (RBC) [Entitic vol] 84 fL Normal 80-100 [facility] Comment on above: Performed By: #### 3 5492-8 #### [facility] ([id number]) [address], [address] [place] [address] Monocytes (Bld) [#/Vol] 0.4 10*3/uL Normal 0-0.9 [facility] Comment on above: Performed By: #### 3 5492-8 #### [facility] ([id number]) [address], [address] [place] [address] Monocytes/100 WBC (Bld) 5.5 % Normal [facility] Comment on above: Performed By: #### 3 5492-8 #### [facility] ([id number]) [address], [address] [place] [address] Neutrophils/100 WBC (Bld) 75.3 % Normal [facility] Comment on above: Performed By: #### 3 5492-8 #### [facility] ([id number]) [address], [facility] [address] [place] [address] Platelet mean volume (Bld) [Entitic vol] 6.3 fL Low 7-12 [facility] Comment on above: Performed By: #### 3 5492-8 #### [facility] ([id number]) [address], [address] [place] [address] Platelets (Bld) [#/Vol] 268 10*3/uL Normal 150-450 [facility] Comment on above: Performed By: #### 3 5492-8 #### [facility] ([id number]) [address], [address] [place] [address] RBC COUNT 4.13 X10E12/L Normal 4.10-5.70 [facility] Comment on above: Performed By: #### 3 5492-8 #### [facility] ([id number]) [address] [address] [place] [address] WBC (Bld) [#/Vol] 7.0 10*3/uL Normal 4.0-11.[address] [facility] Comment on above: Performed By: #### 3 5492-8 #### [facility] ([id number]) [address], [address] [place] [address] Fibrin D-dimer DDU (PPP) [Ma ss/Vol]on 06-10-2024 D DIMER 3432 ng/mL DDU High <255 [facility] Comment on above: Result Comment: [...] level. Performed By: #### 3 5492-8 #### [facility] ([id number]) [address], [address] [place] [address] BASIC METABOLIC PANLon 06-02 Anion gap [Moles/Vol] 10 mmol/L Normal 5-15 [facility] Comment on above: Performed By: #### 3 5492-8 #### [facility] ([id number]) [address], [address] [place] [address] Calcium [Mass/Vol] 9.7 mg/dL Normal 8.5-10.[address] [facility] Comment on above: Performed By: #### 3 5492-8 #### [facility] ([id number]) [address] [place] [address] Chloride [Moles/Vol] 103 mmol/L Normal 98-109 [facility] Comment on above: Performed By: #### 3 5492-8 #### [facility] ([id number]) [address], [address] [place] [address] CO2 [Moles/Vol] 29 mmol/L Normal 22-32 [facility] Comment on above: Performed By: #### 3 5492-8 #### [facility] ([id number]) [address] [address] [place] [address] Creatinine [Mass/Vol] 0.93 mg/dL Normal 0.60-1.30 [facility] Comment on above: Result Comment: METH OD TRACEABLE TO IDMS STANDARD Performed By: #### 3 5492-8 #### [facility] ([id number]) [address], [address] [place] [address] GFR/1.73 sq M.predicted among non-blacks MDRD (S/P/Bld) [Vol rate/Area] 87 mL/min/{1.73_m2} Normal >59 [facility] Comment on above: Result Comment: Reported eGFR is based on the CKD-EPI 2020 equation that does not use a race coefficient. Performed By: #### 3 5492-8 #### [facility] ([id number]) [address], [address] [place] [address] Glucose [Mass/Vol] 96 mg/dL Normal 65-[address] [facility] Comment on above: Performed By: #### 3 5492-8 #### [facility] ([id number]) [address], [address] [place] [address] Potassium [Moles/Vol] 4.2 mmol/L Normal 3.5-5.0 [facility] Comment on above: Performed By: #### 3 5492-8 #### [facility] ([id number]) [address], [address] [place] [address] Sodium [Moles/Vol] 142 mmol/L Normal 134-[address] [facility] Comment on above: Performed By: #### 3 5492-8 #### [facility] ([id number]) [address], [address] [place] [address] Urea nitrogen [Mass/Vol] 18 mg/dL Normal 5-27 [facility] Comment on above: Performed By: #### 3 5492-8 #### [facility] ([id number]) [address], [address] [place] [address] Office Visiton 05-31-2024 Follow-up visit [id number] Royce Arizmendi 1950 M Date Provider Department Center 05/31/2024 [facility] MP ORTHO MPORTHO No family history on file Level of Service:41209 [facility] UP VISIT RELATED TO ORIGINAL PX (GC) Reason for Visit and Comments: Post-op [483] Normal [facility] 36on 05-28-2024 36 VERBAL SENT. [facility] 36 Patient discharged f [facility], Rashmi with [facility] home health would like to resume therapy and add home nursing services once a week for 2 weeks [phone] [facility] CBC AND AUTO DIFFon 05-27-20 24 ABSOLUTE BASOPHIL 0.1 X10E9/L Normal 0.0-0.[address] [facility] Comment on above: Performed By: #### 3 5492-8 #### [facility] ([id number]) [address], [address] [place] [address] ABSOLUTE NEUTROPHIL 5.9 X10E9/L Normal 1.5-6.6 [facility] Comment on above: Performed By: #### 3 5492-8 #### [facility] ([id number]) [address] [place] [address] Basophils/100 WBC (Bld) 0.7 % Normal [facility] Comment on above: Performed By: #### 3 5492-8 #### [facility] ([id number]) [address] [place] [address] Eosinophils (Bld) [#/Vol] 0.3 10*3/uL Normal 0.0-0.4 [facility] Comment on above: Performed By: #### 3 5492-8 #### [facility] ([id number]) [address], [address] [place] [address] Eosinophils/100 WBC (Bld) 3.4 % Normal [facility] Comment on above: Performed By: #### 3 5492-8 #### [facility] ([id number]) [address] [place] [address] Erythrocyte distribution width (RBC) [Ratio] 16.4 % High 11.5-15.0 [facility] Comment on above: Performed By: #### 3 5492-8 #### [facility] ([id number]) [address] [place] [address] Hematocrit (Bld) [Volume fraction] 35.9 % Low 39-49 [facility] Comment on above: Performed By: #### 3 5492-8 #### [facility] ([id number]) [address] [place] [address] Hemoglobin (Bld) [Mass/Vol] 11.7 g/dL Low 13.0-17.0 [facility] Comment on above: Performed By: #### 3 5492-8 #### [facility] ([id number]) [address] [place] [address] Lymphocytes (Bld) [#/Vol] 1.3 10*3/uL Normal 1.0-3.5 [facility] Comment on above: Performed By: #### 3 5492-8 #### [facility] ([id number]) [address], [address] [place] [address] Lymphocytes/100 WBC (Bld) 16.0 % Normal [facility] Comment on above: Performed By: #### 3 5492-8 #### [facility] ([id number]) [address], [address] [place] [address] MCH (RBC) [Entitic mass] 27.9 pg Normal 27-34 [facility] Comment on above: Performed By: #### 3 5492-8 #### [facility] ([id number]) [address], [address] [place] [address] MCHC (RBC) [Mass/Vol] 32.6 g/dL Normal 32-36 [facility] Comment on above: Performed By: #### 3 5492-8 #### [facility] ([id number]) [address], [address] [place] [address] MCV (RBC) [Entitic vol] 86 fL Normal 80-100 [facility] Comment on above: Performed By: #### 3 5492-8 #### [facility] ([id number]) [address], [address] [place] [address] Monocytes (Bld) [#/Vol] 0.5 10*3/uL Normal 0-0.9 [facility] Comment on above: Performed By: #### 3 5492-8 #### [facility] ([id number]) [address], [address] [place] [address] Monocytes/100 WBC (Bld) 6.1 % Normal [facility] Comment on above: Performed By: #### 3 5492-8 #### [facility] ([id number]) [address], [address] [place] [address] Neutrophils/100 WBC (Bld) 73.8 % Normal [facility] Comment on above: Performed By: #### 3 5492-8 #### [facility] ([id number]) [address], [address] [place] [address] Platelet mean volume (Bld) [Entitic vol] 6.1 fL Low 7-12 [facility] Comment on above: Performed By: #### 3 5492-8 #### [facility] ([id number]) [address], [address] [place] [address] Platelets (Bld) [#/Vol] 345 10*3/uL Normal 150-450 [facility] Comment on above: Performed By: #### 3 5492-8 #### [facility] ([id number]) [address], [address] [place] [address] RBC COUNT 4.19 X10E12/L Normal 4.10-5.70 [facility] Comment on above: Performed By: #### 3 5492-8 #### [facility] ([id number]) [address], [address] [place] [address] WBC (Bld) [#/Vol] 8.0 10*3/uL Normal 4.0-11.[address] [facility] Comment on above: Performed By: #### 3 5492-8 #### [facility] ([id number]) [address], [address] [place] [address] COMPREHENSIVE METABOLIC PANE John 05-27-2024 Albumin [Mass/Vol] 3.5 g/dL Normal 3.2-5.[address] [facility] Comment on above: Performed By: #### 3 5492-8 #### [facility] ([id number]) [address], [address] [place] [address] ALP [Catalytic activity/Vol] 126 U/L Normal 39-130 [facility] Comment on above: Performed By: #### 3 5492-8 #### [facility] ([id number]) [address], [address] [place] [address] ALT [Catalytic activity/Vol] 51 U/L High 0-40 [facility] Comment on above: Performed By: #### 3 5492-8 #### [facility] ([id number]) [address], [address] [place] [address] Anion gap [Moles/Vol] 2 mmol/L Low 5-15 [facility] Comment on above: Performed By: #### 3 5492-8 #### [facility] ([id number]) [address], [address] [place] [address] AST [Catalytic activity/Vol] 28 U/L Normal 0-41 [facility] Comment on above: Performed By: #### 3 5492-8 #### [facility] ([id number]) [address], [address] [place] [address] Bilirubin [Mass/Vol] 0.4 mg/dL Normal 0.3-1.2 [facility] Comment on above: Performed By: #### 3 5492-8 #### [facility] ([id number]) [address], [address] [place] [address] Calcium [Mass/Vol] 8.7 mg/dL Normal 8.5-10.[address] [facility] Comment on above: Performed By: #### 3 5492-8 #### [facility] ([id number]) [address], [address] [place] [address] Chloride [Moles/Vol] 106 mmol/L Normal 98-109 [facility] Comment on above: Performed By: #### 3 5492-8 #### [facility] ([id number]) [address], [address] [place] [address] CO2 [Moles/Vol] 26 mmol/L Normal 22-32 [facility] Comment on above: Performed By: #### 3 5492-8 #### [facility] ([id number]) [address], [address] [place] [address] Creatinine [Mass/Vol] 0.79 mg/dL Normal 0.70-1.20 [facility] Comment on above: Result Comment: METH OD TRACEABLE TO IDMS STANDARD Performed By: #### 3 5492-8 #### [facility] ([id number]) [address], [address] [place] [address] eGFR (CKD-EPI) NON-RACE DEPENDENT >90 Normal >59 [facility] Comment on above: Result Comment: Reported eGFR is based on the CKD-EPI 2020 equation that does not use a race coefficient. Performed By: #### 3 5492-8 #### [facility] ([id number]) [address], [address] [place] [address] Glucose [Mass/Vol] 112 mg/dL High 65-[address] [facility] Comment on above: Performed By: #### 3 5492-8 #### [facility] ([id number]) [address], [address] [place] [address] Potassium [Moles/Vol] 3.7 mmol/L Normal 3.5-5.0 [facility] Comment on above: Performed By: #### 3 5492-8 #### [facility] ([id number]) [address], [address] [place] [address] Protein [Mass/Vol] 7.5 g/dL Normal 6.0-8.[address] [facility] Comment on above: Performed By: #### 3 5492-8 #### [facility] ([id number]) [address], [address] [place] [address] Sodium [Moles/Vol] 134 mmol/L Normal 134-[address] [facility] Comment on above: Performed By: #### 3 5492-8 #### [facility] ([id number]) [address], [address] [place] [address] Urea nitrogen [Mass/Vol] 17 mg/dL Normal 5-27 [facility] Comment on above: Performed By: #### 3 5492-8 #### [facility] ([id number]) [address], [address] [place] [address] MAGNESIUMon 05-27-2024 Magnesium [Mass/Vol] 2.1 mg/dL Normal 1.8-2.6 [facility] Comment on above: Performed By: #### 3 5492-8 #### [facility] ([id number]) [address], [address] [place] [address] Vancomycin trough [Mass/Vol] on 05-27-2024 VANCOMYCIN TROUGH 10.5 ug/mL Normal 5.0-20.0 [facility] Comment on above: Performed By: #### 3 5492-8 #### [facility] ([id number]) [address], [address] [place] [address] CBC AND AUTO DIFFon 05-26-20 24 ABSOLUTE BASOPHIL 0.1 X10E9/L Normal 0.0-0.[address] [facility] Comment on above: Performed By: #### P INR, 37323-7 #### [facility] ([id number]) [address] [place] [address] ABSOLUTE NEUTROPHIL 8.4 X10E9/L High 1.5-6.6 [facility] Comment on above: Performed By: #### P INR, 35967-9 #### [facility] ([id number]) [address] [place] [address] Basophils/100 WBC (Bld) 0.9 % Normal [facility] Comment on above: Performed By: #### P INR, 89190-6 #### [facility] ([id number]) [address] [place] [address] Eosinophils (Bld) [#/Vol] 0.3 10*3/uL Normal 0.0-0.4 [facility] Comment on above: Performed By: #### P INR, 70127-1 #### [facility] ([id number]) [address] [place] [address] Eosinophils/100 WBC (Bld) 2.9 % Normal [facility] Comment on above: Performed By: #### P INR, 76431-2 #### [facility] ([id number]) [address] [place] [address] Erythrocyte distribution width (RBC) [Ratio] 16.2 % High 11.5-15.0 [facility] Comment on above: Performed By: #### P INR, 53682-5 #### [facility] ([id number]) [address] [place] [address] Hematocrit (Bld) [Volume fraction] 32.2 % Low 39-49 [facility] Comment on above: Performed By: #### P INR, 77959-4 #### [facility] ([id number]) [address] [place] [address] Hemoglobin (Bld) [Mass/Vol] 10.4 g/dL Low 13.0-17.0 [facility] Comment on above: Performed By: #### P INR, 70937-7 #### [facility] ([id number]) [address] [place] [address] Lymphocytes (Bld) [#/Vol] 2.0 10*3/uL Normal 1.0-3.5 [facility] Comment on above: Performed By: #### P INR, 10294-6 #### [facility] ([id number]) [address] [place] [address] 19568 Lymphocytes/100 WBC (Bld) 17.6 % Normal [facility] Comment on above: Performed By: #### P INR, 70278-2 #### [facility] ([id number]) [address] [place] [address] MCH (RBC) [Entitic mass] 27.7 pg Normal 27-34 [facility] Comment on above: Performed By: #### P INR, 12340-9 #### [facility] ([id number]) [address] [place] [address]31 MCHC (RBC) [Mass/Vol] 32.5 g/dL Normal 32-36 [facility] Comment on above: Performed By: #### P INR, 36468-6 #### [facility] ([id number]) [address] [place] [address] 20108 MCV (RBC) [Entitic vol] 85 fL Normal 80-100 [facility] Comment on above: Performed By: #### P INR, 68327-9 #### [facility] ([id number]) [address] [place] [address] Monocytes (Bld) [#/Vol] 0.7 10*3/uL Normal 0-0.9 [facility] Comment on above: Performed By: #### P INR, 35195-0 #### [facility] ([id number]) [address] [place] [address], [place] [address] Monocytes/100 WBC (Bld) 6.0 % Normal [facility] Comment on above: Performed By: #### P INR, 00244-8 #### [facility] ([id number]) [address] [place] [address], [place] [address] Neutrophils/100 WBC (Bld) 72.6 % Normal [facility] Comment on above: Performed By: #### P INR, 81308-3 #### [facility] ([id number]) [address] [place] [address], [place] [address] Platelet mean volume (Bld) [Entitic vol] 6.5 fL Low 7-12 [facility] Comment on above: Performed By: #### P INR, 94358-0 #### [facility] ([id number]) [address] [place] [address], [place] [address] Platelets (Bld) [#/Vol] 320 10*3/uL Normal 150-450 [facility] Comment on above: Performed By: #### P INR, 26112-1 #### [facility] ([id number]) [address] [place] [address], [place] [address] RBC COUNT 3.76 X10E12/L Low 4.10-5.70 [facility] Comment on above: Performed By: #### P INR, 05647-9 #### [facility] ([id number]) [address] [place] [address]3685 WBC (Bld) [#/Vol] 11.5 10*3/uL High 4.0-11.0 [facility] Comment on above: Performed By: #### P INR, 89626-9 #### [facility] ([id number]) [address] [place] [address] COMPREHENSIVE METABOLIC PANE John 05-26-2024 Albumin [Mass/Vol] 3.0 g/dL Low 3.2-5.[address] [facility] Comment on above: Performed By: #### P INR, 19373-4 #### [facility] ([id number]) [address] [place] [address] [place] [address] ALP [Catalytic activity/Vol] 105 U/L Normal 39-130 [facility] Comment on above: Performed By: #### P INR, 16095-5 #### [facility] ([id number]) [address] [place] [address] ALT [Catalytic activity/Vol] 45 U/L High 0-40 [facility] Comment on above: Performed By: #### P INR, 01198-2 #### [facility] ([id number]) [address] [place] [address] 28547 Anion gap [Moles/Vol] 7 mmol/L Normal 5-15 [facility] Comment on above: Performed By: #### P INR, 84822-4 #### [facility] ([id number]) [address] [place] [address] 31759 AST [Catalytic activity/Vol] 30 U/L Normal 0-41 [facility] Comment on above: Performed By: #### P INR, 61455-3 #### [facility] ([id number]) [address] [place] [address] Bilirubin [Mass/Vol] 1.1 mg/dL Normal 0.3-1.2 [facility] Comment on above: Result Comment: RESU LTS QUESTIONABLE DUE TO HEMOLYSIS Performed By: #### P INR, 67242-3 #### [facility] ([id number]) [address] [place] [address] Calcium [Mass/Vol] 8.6 mg/dL Normal 8.5-10.[address] [facility] Comment on above: Performed By: #### P INR, 48039-3 #### [facility] ([id number]) [address] [place] [address] 75[address] Chloride [Moles/Vol] 103 mmol/L Normal 98-109 [facility] Comment on above: Performed By: #### P INR, 50511-5 #### [facility] ([id number]) [address] [place] [address] CO2 [Moles/Vol] 26 mmol/L Normal 22-32 [facility] Comment on above: Performed By: #### P INR, 72581-3 #### [facility] ([id number]) [address] [place] [address] 12458 Creatinine [Mass/Vol] 0.78 mg/dL Normal 0.70-1.20 [facility] Comment on above: Result Comment: METH OD TRACEABLE TO IDMS STANDARD Performed By: #### P INR, 29295-0 #### [facility] ([id number]) [address] [place] [address] eGFR (CKD-EPI) NON-RACE DEPENDENT >90 Normal >59 [facility] Comment on above: Result Comment: Reported eGFR is based on the CKD-EPI 2021 equation that does not use a race coefficient. Performed By: #### P INR, 81178-3 #### [facility] ([id number]) [address] [place] [address]8837 Glucose [Mass/Vol] 108 mg/dL High 65-[address] [facility] Comment on above: Performed By: #### P INR, 09188-6 #### [facility] ([id number]) [address] [place] [address] 87613 Potassium [Moles/Vol] 4.4 mmol/L Normal 3.5-5.0 [facility] Comment on above: Result Comment: SPEC IMEN HEMOLYZED, RESULTS INCREASED Performed By: #### P INR, 54624-5 #### [facility] ([id number]) [address] [place] [address] 42186 Protein [Mass/Vol] 6.5 g/dL Normal 6.0-8.[address] [facility] Comment on above: Performed By: #### P INR, 87018-9 #### [facility] ([id number]) [address] [place] [address] 09939 Sodium [Moles/Vol] 136 mmol/L Normal 134-[address] [facility] Comment on above: Performed By: #### P INR, 34730-6 #### [facility] ([id number]) [address] [place] [address] 00827 Urea nitrogen [Mass/Vol] 15 mg/dL Normal 5-27 [facility] Comment on above: Performed By: #### P INR, 07014-0 #### [facility] ([id number]) [address] [place] [address] MAGNESIUMon 05-26-2024 Magnesium [Mass/Vol] 2.0 mg/dL Normal 1.8-2.6 [facility] Comment on above: Performed By: #### P INR, 30841-1 #### [facility] ([id number]) [address] [place] [address] 91473 CBC AND AUTO DIFFon 05-25-20 24 ABSOLUTE BASOPHIL 0.1 X10E9/L Normal 0.0-0.[address] [facility] Comment on above: Performed By: #### C BCA, 55078-3, CMP, 20999-4, 1988-5, 16917- 0 #### [facility] ([id number]) [address] [place] [address] 50318 #### FEPR #### [facility] ([id number]) [address], [address] [place] [address] ABSOLUTE NEUTROPHIL 7.6 X10E9/L High 1.5-6.6 [facility] Comment on above: Performed By: #### C AMARILYS, 35638-9, CMP, 14160-9, 1988-03, 50440- 0 #### [facility] ([id number]) [address] [place] [address] 57937 #### FEPR #### [facility] ([id number]) [address] [facility] [facility] [address] [place] [address] Basophils/100 WBC (Bld) 0.6 % Normal [facility] Comment on above: Performed By: #### C AMARILYS, 79862-2, CMP, 52506-4, 1988-03, 49923- 0 #### [facility] ([id number]) [address] [place] [address] 42783 #### FEPR #### [facility] ([id number]) [address] [facility] [place] [address] Eosinophils (Bld) [#/Vol] 0.2 10*3/uL Normal 0.0-0.4 [facility] Comment on above: Performed By: #### C BCA, 54019-6, CMP, 31216-1, 1988-03, 34922- 0 #### [facility] ([id number]) [address] [place] [address] 25458 #### FEPR #### [facility] ([id number]) [address], [address] [place] [address] Eosinophils/100 WBC (Bld) 1.7 % Normal [facility] Comment on above: Performed By: #### C BCA, 73136-0, CMP, 50362-6, 1988-03, 78054- 0 #### [facility] ([id number]) [address] [place] [address] 96449 #### FEPR #### [facility] ([id number]) [address], [address] [place] [address] Erythrocyte distribution width (RBC) [Ratio] 16.1 % High 11.5-15.0 [facility] Comment on above: Performed By: #### C BCA, 99220-3, CMP, 26437-4, 1988-03, 03397- 0 #### [facility] ([id number]) [address] [place] [address] 64237 #### FEPR #### [facility] ([id number]) [address], [address] [place] [address] Hematocrit (Bld) [Volume fraction] 32.8 % Low 39-49 [facility] Comment on above: Performed By: #### C BCA, 32300-1, CMP, 70709-7, 1988-03, 84400- 0 #### [facility] ([id number]) [address] [place] [address] 18709 #### FEPR #### [facility] ([id number]) [address] [place] [address] Hemoglobin (Bld) [Mass/Vol] 10.7 g/dL Low 13.0-17.0 [facility] Comment on above: Performed By: #### C BCA, 65704-0, CMP, 88447-7, 1988-03, 90053- 0 #### [facility] ([id number]) [address] [place] [address] 17032 #### FEPR #### [facility] ([id number]) [address], [address] [place] [address] Lymphocytes (Bld) [#/Vol] 1.4 10*3/uL Normal 1.0-3.5 [facility] Comment on above: Performed By: #### C BCA, 04419-4, CMP, 49923-9, 1988-03, 53624- 0 #### [facility] ([id number]) [address] [place] [address] 43838 #### FEPR #### [facility] ([id number]) [address] [facility] [place] [address] Lymphocytes/100 WBC (Bld) 14.0 % Normal [facility] Comment on above: Performed By: #### C BCA, 55920-9, CMP, 12004-2, 1988-03, 28522- 0 #### [facility] ([id number]) [address] [place] [address] 47131 #### FEPR #### [facility] ([id number]) [address] [facility] [place] [address] MCH (RBC) [Entitic mass] 27.9 pg Normal 27-34 [facility] Comment on above: Performed By: #### C BCA, 91829-9, CMP, 47638-4, 1988-03, 98661- 0 #### [facility] ([id number]) [address] [place] [address] 20838 #### FEPR #### [facility] ([id number]) [address] [facility] [place] [address] MCHC (RBC) [Mass/Vol] 32.6 g/dL Normal 32-36 [facility] Comment on above: Performed By: #### C BCA, 23835-5, CMP, 44876-5, 1988-03, 47816- 0 #### [facility] ([id number]) [address] [place] [address] 71034 #### FEPR #### [facility] ([id number]) [address], [address] [place] [address] MCV (RBC) [Entitic vol] 85 fL Normal 80-100 [facility] Comment on above: Performed By: #### C AMARILYS, 96785-4, CMP, 79778-0, 1988-03, - 0 #### [facility] ([id number]) [address] [place] [address] 87704 #### FEPR #### [facility] ([id number]) [address] [place] [address] Monocytes (Bld) [#/Vol] 0.7 10*3/uL Normal 0-0.9 [facility] Comment on above: Performed By: #### C AMARILYS, 17748-4, CMP, 77351-4, 1988-03, 57257 #### [facility] ([id number]) [address] [place] [address] 93770 #### FEPR #### [facility] ([id number]) [address], [address] [place] [address] Monocytes/100 WBC (Bld) 7.0 % Normal [facility] Comment on above: Performed By: #### C AMARILYS, 64354-0, CMP, 74020-3, 1988-03, 68173- 0 #### [facility] ([id number]) [address] [place] [address] 48685 #### FEPR #### [facility] ([id number]) [address] [place] [address] Neutrophils/100 WBC (Bld) 76.7 % Normal [facility] Comment on above: Performed By: #### C AMARILYS, 55872-4, CMP, 94554-8, 1988-03, 64148- 0 #### [facility] ([id number]) [address] [place] [address] 83446 #### FEPR #### [facility] ([id number]) [address] [place] [address] Platelet mean volume (Bld) [Entitic vol] 6.0 fL Low 7-12 [facility] Comment on above: Performed By: #### C BCA, 93577-1, CMP, 80979-4, 1988-03, 33382- 0 #### [facility] ([id number]) [address] [place] [address] 09219 #### FEPR #### [facility] ([id number]) [address], [address] [place] [address] Platelets (Bld) [#/Vol] 325 10*3/uL Normal 150-450 [facility] Comment on above: Performed By: #### C AMARILYS, 27346-4, CMP, 46888-9, 1988-03, 80881- 0 #### [facility] ([id number]) [address] [place] [address] 35209 #### FEPR #### [facility] ([id number]) [address], [address] [place] [address] RBC COUNT 3.84 X10E12/L Low 4.10-5.70 [facility] Comment on above: Performed By: #### C BCA, 66655-6, CMP, 67689-2, 1988-03, 62222- 0 #### [facility] ([id number]) [address] [place] [address] 25173 #### FEPR #### [facility] ([id number]) [address] [place] [address] WBC (Bld) [#/Vol] 9.9 10*3/uL Normal 4.0-11.[address] [facility] Comment on above: Performed By: #### C BCA, 16577-2, CMP, 88775-9, 1988-03, 14140- 0 #### [facility] ([id number]) [address] [place] [address] 46699 #### FEPR #### [facility] ([id number]) [address], [address] [place] [address] COMPREHENSIVE METABOLIC PANE John 05-25-2024 Albumin [Mass/Vol] 3.2 g/dL Normal 3.2-5.[address] [facility] Comment on above: Performed By: #### C BCA, 21473-2, CMP, 89733-6, 1988-03, 86645- 0 #### [facility] ([id number]) [address] [place] [address] 64813 #### FEPR #### [facility] ([id number]) [address] [place] [address] ALP [Catalytic activity/Vol] 110 U/L Normal 39-130 [facility] Comment on above: Performed By: #### C BCA, 25886-4, CMP, 14197-2, 1988-03, 45871- 0 #### [facility] ([id number]) [address] [place] [address] 30301 #### FEPR #### [facility] ([id number]) [address] [place] [address] ALT [Catalytic activity/Vol] 48 U/L High 0-40 [facility] Comment on above: Performed By: #### C BCA, 29402-8, CMP, 90412-9, 1988-03, 84087- 0 #### [facility] ([id number]) [address] [place] [address] 38831 #### FEPR #### [facility] ([id number]) [address], [address] [place] [address] Anion gap [Moles/Vol] 4 mmol/L Low 5-15 [facility] Comment on above: Performed By: #### C BCA, 16905-2, CMP, 68598-8, 1988-03, 75690- 0 #### [facility] ([id number]) [address] [place] [address] 71900 #### FEPR #### [facility] ([id number]) [address] [facility] [address], [address] [place] [address] AST [Catalytic activity/Vol] 28 U/L Normal 0-41 [facility] Comment on above: Performed By: #### C BCA, 64849-1, CMP, 44246-3, 1988-03, 90975- 0 #### [facility] ([id number]) [address] [place] [address]3622 #### FEPR #### [facility] ([id number]) [address] [facility] [address], [address] [place] [address] Bilirubin [Mass/Vol] 0.6 mg/dL Normal 0.3-1.2 [facility] Comment on above: Performed By: #### C BCA, 94488-3, CMP, 39886-4, 1988-03, 27661- 0 #### [facility] ([id number]) [address] [place] [address] #### FEPR #### [facility] ([id number]) [address] [facility], [address] [place] [address] Calcium [Mass/Vol] 8.6 mg/dL Normal 8.5-10.[address] [facility] Comment on above: Performed By: #### C BCA, 88148-1, CMP, 10657-7, 1988-03, 54104- 0 #### [facility] ([id number]) [address] [place] [address] #### FEPR #### [facility] ([id number]) [address], [address] [place] [address] Chloride [Moles/Vol] 106 mmol/L Normal 98-109 [facility] Comment on above: Performed By: #### C BCA, 96959-7, CMP, 02937-0, 1988-03, 47636- 0 #### [facility] ([id number]) [address] [place] [address]36 #### FEPR #### [facility] ([id number]) [address], [address] [place] [address] CO2 [Moles/Vol] 26 mmol/L Normal 22-32 [facility] Comment on above: Performed By: #### C BCA, 49931-5, CMP, 06784-9, 1988-03, 57708- 0 #### [facility] ([id number]) [address] [place] [address] #### FEPR #### [facility] ([id number]) [address], [address] [place] [address] Creatinine [Mass/Vol] 0.96 mg/dL Normal 0.70-1.20 [facility] Comment on above: Result Comment: METH OD TRACEABLE TO IDMS STANDARD Performed By: #### C BCA, 53278-1, CMP, 70288-6, 1988-03, 11066-0 #### [facility] ([id number]) [address] [place] [address] #### FEPR #### [facility] ([id number]) [address], [address] [place] [address] GFR/1.73 sq M.predicted among non-blacks MDRD (S/P/Bld) [Vol rate/Area] 84 mL/min/{1.73_m2} Normal >59 [facility] Comment on above: Result Comment: Reported eGFR is based on the CKD-EPI 2020 equation that does not use a race coefficient. Performed By: #### C BCA, 88884-7, CMP, 51189-0, 1988-03, 15173-1 #### [facility] ([id number]) [address] [place] [address] #### FEPR #### [facility] ([id number]) [address], [address] [place] [address] Glucose [Mass/Vol] 118 mg/dL High 65-99 [facility] [facility] Comment on above: Performed By: #### C BCA, 95807-4, CMP, 69534-6, 1988-03, 22460- 0 #### [facility] ([id number]) [address] [place] [address] #### FEPR #### [facility] ([id number]) [address], [address] [place] [address] Potassium [Moles/Vol] 4.1 mmol/L Normal 3.5-5.0 [facility] Comment on above: Performed By: #### C BCA, 96615-3, CMP, 61605-7, 1988-03, 95555- 0 #### [facility] ([id number]) [address] [place] [address] 77976 #### FEPR #### [facility] ([id number]) [address], [address] [place] [address] Protein [Mass/Vol] 7.0 g/dL Normal 6.0-8.[address] [facility] Comment on above: Performed By: #### C BCA, 26808-3, CMP, 84923-9, 1988-03, 35278- 0 #### [facility] ([id number]) [address] [place] [address] 70567 #### FEPR #### [facility] ([id number]) [address], [address] [place] [address] Sodium [Moles/Vol] 136 mmol/L Normal 134-[address] [facility] Comment on above: Performed By: #### C BCA, 22317-2, CMP, 49120-4, 1988-03, 18455- 0 #### [facility] ([id number]) [address] [place] [address] 15[address] #### FEPR #### [facility] ([id number]) [address], [address] [place] [address] Urea nitrogen [Mass/Vol] 17 mg/dL Normal 5-27 [facility] Comment on above: Performed By: #### C BCA, 07036-7, CMP, 64565-2, 1988-03, 69056- 0 #### [facility] ([id number]) [address] [place] [address] 7[address] #### FEPR #### [facility] ([id number]) [address], [address] [place] [address] CRP [Mass/Vol]on 05-25-2024 C REACTIVE PROTEIN 6.2 mg/dL High 0.000-0.744 [facility] Comment on above: Performed By: #### C BCA, 57765-1, CMP, 44218-6, 1988-03, 41328- 0 #### [facility] ([id number]) [address] [place] [address] #### FEPR #### [facility] ([id number]) [address], [address] [place] [address] CT CTA CHESTon 05-25-2024 CT CTA CHEST [...] Miguel Rose DO on 05/25/2024 8:27 PM IJonathon MD have personally reviewed the image(s) and agree with and/or edited the report Finalized by Jonathon Mccrary MD on 05/25/2024 8:46 PM Normal [facility] Fibrin D-dimer DDU (PPP) [Ma ss/Vol]on 05-25-2024 D DIMER 3483 ng/mL DDU High <255 [facility] Comment on above: Result Comment: [...] the D-Dimer level. Performed By: #### C AMARILYS, 31642-8, [facility], 37303-0, 1988-5, 18690-3 #### [facility] ([id number]) [address] [place] [address], [place] [address] #### FEPR #### [facility] ([id number]) [address], [address] [place] [address] IRON PROFILEon 05-25-2024 Iron [Mass/Vol] 34 ug/dL Low 50-212 [facility] Comment on above: Performed By: #### P INR, 25819-0 #### [facility] ([id number]) [address] [place] [address] IRON BINDING 258 ug/dL Normal 250-425 [facility] Comment on above: Performed By: #### P INR, 14885-7 #### [facility] ([id number]) [address] [place] [address] IRON SATURATION 13 % SATURATION Low 20-50 [facility] Comment on above: Performed By: #### P INR, 54787-7 #### [facility] ([id number]) [address] [place] [address] Natriuretic peptide B [Mass/ Vol]on 05-25-2024 Natriuretic peptide B (Bld) [Mass/Vol] 13 pg/mL Normal <100.0 [facility] Comment on above: Performed By: #### C BCA, 70268-4, CMP, 88595-0, 1988-5, 64581- 0 #### [facility] ([id number]) [address] [place] [address] #### FEPR #### [facility] ([id number]) [address], [address] [place] [address] Procalcitonin IA [Mass/Vol]o n 05-25-2024 PROCALCITONIN 0.07 ng/mL High <0.05 [facility] Comment on above: Result Comment: NOTE <0.50 ng/mL - Low risk of severe sepsis and/or septic shock. <2.00 ng/mL - Recommend retesting within 6-24 hours. >2.00 ng/mL - High risk of sepsis and/or septic shock. Performed By: #### P INR, 73571-1 #### [facility] ([id number]) [address] [place] [address] URINALYSISon 05-25-2024 Bilirubin Ql (U) Negative Normal NEG [facility] Comment on above: Performed By: #### P INR, 19012-8 #### [facility] ([id number]) [address] [place] [address] [place] [address] BLOOD/HGB Trace Abnormal NEG [facility] Comment on above: Performed By: #### P INR, 62871-8 #### [facility] ([id number]) [address] [place] [address] Color (U) YELLOW Normal YELLOW [facility] Comment on above: Performed By: #### P INR, 89677-4 #### [facility] ([id number]) [address] [place] [address] [place] [address] Glucose Ql (U) Negative Normal NEG [facility] Comment on above: Performed By: #### P INR, 97870-3 #### [facility] ([id number]) [address] [place] [address] [place] [address] Hyaline casts LM Ql (Urine sed) 0 to 2 Normal 0-2 [facility] Comment on above: Performed By: #### P INR, 40671-5 #### [facility] ([id number]) [address] [place] [address] [place] [address] Ketones Ql (U) Negative Normal NEG [facility] Comment on above: Performed By: #### P INR, 89578-0 #### [facility] ([id number]) [address] [place] [address] [place] [address] Leukocyte esterase Test strip Ql (U) Negative Normal NEG [facility] Comment on above: Performed By: #### P INR, 12709-7 #### [facility] ([id number]) [address] [place] [address] [place] [address] MUCOUS PRESENT Abnormal NONE [facility] Comment on above: Performed By: #### P INR, 93859-5 #### [facility] ([id number]) [address] [place] [address] Nitrite Ql (U) Negative Normal NEG [facility] Comment on above: Performed By: #### P INR, 64747-1 #### [facility] ([id number]) [address] [place] [address] pH (U) 6.0 [pH] Normal 5.0-8.5 [facility] Comment on above: Performed By: #### P INR, 74379-6 #### [facility] ([id number]) [address] [place] [address] Protein Ql (U) Negative Normal NEG [facility] Comment on above: Performed By: #### P INR, 86949-7 #### [facility] ([id number]) [address] [place] [address] R.B.CELLS 2 to 5 Normal 0-5 [facility] Comment on above: Performed By: #### P INR, 82117-8 #### [facility] ([id number]) [address] [place] [address]66[address] Specific gravity (U) [Rel density] >1.030 Normal 1.003-1.035 [facility] Comment on above: Performed By: #### P INR, 07322-1 #### [facility] ([id number]) [address] [place] [address]143 TURBIDITY CLEAR Normal CLEAR [facility] Comment on above: Performed By: #### P INR, 27778-3 #### [facility] ([id number]) [address] [place] [address] [place] [address] Urobilinogen Qn (U) 0.2 {Christi'U}/dL Normal <1.1 [facility] Comment on above: Performed By: #### P INR, 01050-0 #### [facility] ([id number]) [address] [place] [address] 07181 W.B.CELLS 0 to 2 Normal 0-5 [facility] Comment on above: Performed By: #### P INR, 82346-3 #### [facility] ([id number]) [address] [place] [address] URINE CULTUREon 05-25-2024 Bacteria identified Cx Nom (U) CULTURE RESULTS NO GROWTH AT <1000 CFU/mL Normal [facility] Comment on above: Performed By: #### P INR, 45799-0 #### [facility] ([id number]) [address] [place] [address] [place] [address] URN MACROSCOPIC NURon 2023 BILIRUBIN ANIBAL Negative Normal NEG [facility] Comment on above: Performed By: #### P INR, 46223-8 #### [facility] ([id number]) [address] [place] [address] 48958 BLOOD/HGB ANIBAL Trace Abnormal NEG [facility] Comment on above: Performed By: #### P INR, 74894-4 #### [facility] ([id number]) [address] [place] [address] [place] [address] GLUCOSE ANIBAL Negative Normal NEG [facility] Comment on above: Performed By: #### P INR, 57360-3 #### [facility] ([id number]) [address] [place] [address] [place] [address] KETONES ANIBAL Negative Normal NEG [facility] Comment on above: Performed By: #### P INR, 64396-5 #### [facility] ([id number]) [address] [place] [address] [place] [address] LEUKOCYTE ESTERASE ANIBAL Negative Normal NEG [facility] Comment on above: Performed By: #### P INR, 35266-3 #### [facility] ([id number]) [address] [place] [address] 19989 NITRITE ANIBAL Negative Normal NEG [facility] Comment on above: Performed By: #### P INR, 45188-2 #### [facility] ([id number]) [address] [place] [address] 788[address] PH ANIBAL 5.5 Normal 5.0-8.5 [facility] Comment on above: Performed By: #### P INR, 31373-1 #### [facility] ([id number]) [address] [place] [address] PROTEIN ANIBAL Negative Normal NEG [facility] Comment on above: Performed By: #### P INR, 66993-7 #### [facility] ([id number]) [address] [place] [address] SPECIFIC GRAVITY ANIBAL >=1.030 Normal 1.003-1.035 [facility] Comment on above: Performed By: #### P INR, 66231-0 #### [facility] ([id number]) [address] [place] [address]38 UROBILINOGEN ANIBAL 0.2 eu/dL Normal <1.1 [facility] Comment on above: Performed By: #### P INR, 09521-9 #### [facility] ([id number]) [address] [place] [address] 46434 XR TIBIA FIBULA RT MIN 2 VWS [...] Royce Peterson DO on 05/25/2024 8:40 PM [facility] 36on 05-24-2024 36 SPOKE WITH PATIENT SCHEDULE HIM TO COME IN TODAY TO SEE A RESIDENT [employer]. [facility] 36 Patient feels like socorro white is developing cellulitis, wanting to be seen today, please give a call back with further instruction. Thank you [facility] Office Visiton 05-24-2024 Follow-up visit [id number] UgoRoyce fournier Maddi 1950 M Date Provider Department Center 05/24/2024 GRETEL SIU MP ORTHO MPORTHO No family history on file Level of Service:30118 [place] POSTOP FOLLOW UP VISIT RELATED TO ORIGINAL PX Reason for Visit and Comments: Post-op [483] Edema [[id number]] [facility] 36on 05-17-2024 36 I spoke with the patient to see how he is doing after his recent surgery. Mr Ugo stated he is doing well and his pain is manageable with medication. He is taking everything he was prescribed at discharge. He does state that he has some frustration with [facility] not being out to see him yet. I stated that per the note today they needed information from Dr Chappell. KENAN Hilton has sent this to them. I informed patient if he does not hear from [facility] today to let me know tomorrow. I provided him with my contact information. He denies any redness, drainage or major swelling. He has a post op appointment on May 31 at 1030. He had no questions or concerns. Addendum: I have asked RAD Lambert to assist with getting [facility] set up for patient. [facility] 36 Orders FAXED [facility] 36 Howie ramirez [phone] Fax: [phone] States it is urgent that the PT orders that was faxed to [facility] be signed and faxed back flor This is important for the insurance authorization [facility] Telephoneon 05-17-2024 Telephone [phone] Royce Arizmendi 1950 M Date Provider Department Center 05/17/2024 CHIRAG STEINBERG MP ORTHO MPORTHO No family history on file [facility] 36on 05-14-2024 36 howie delacruz will be faxing over a paper for dr chappell to sign for his home health care, states his insurance co requires a certain form/way for it to be written before they will accept it. States his first visit is today. FYI. [facility] Telephoneon 05-14-2024 Telephone [phone] UgoRoyce Linda 1950 M Date Provider Department Center 05/14/2024 433GRETEL FISHER MP ORTHO MPORTHO No family history on file Reason for Visit and Comments: home health care [Other] [facility] BASIC METABOLIC PANELon 04-18 Anion gap [Moles/Vol] 12 mmol/L Normal - [facility] Comment on above: Performed By: #### L AB15 #### [facility] (BEAKER) [address] [place] [address] Calcium [Mass/Vol] 8.4 mg/dL Low 8.6-10.3 [facility] Comment on above: Performed By: #### L AB15 #### [facility] (BEAKER) [address] [place] [address] Chloride [Moles/Vol] 106 mmol/L Normal 98-107 [facility] Comment on above: Performed By: #### L AB15 #### [facility] (BEAKER) [address] [facility] [place] [address] CO2 [Moles/Vol] 24 mmol/L Normal 21-31 [facility] Comment on above: Performed By: #### L AB15 #### [facility] (BEAKER) [address] [place] [address] Creatinine [Mass/Vol] 0.82 mg/dL Normal 0.70-1.30 [facility] Comment on above: Performed By: #### L AB15 #### [facility] ([facility]) [address] [place] [address] GLOMERULAR FILTRATION RATE ML/MIN/1.73 SQ M.PREDICTED 93.3 mL/min/1.73m*2 Normal >60.0 [facility] Comment on above: Result Comment: [facility]???s estimated glomerular filtration rate (eGFR) will no [...] individuals. Performed By: #### L AB15 #### [facility] ([facility]) [address] [place] [address] Glucose [Mass/Vol] 130 mg/dL High 70-100 [facility] Comment on above: Performed By: #### L [id number] #### [facility] ([facility]) [address] [place] [address] Potassium [Moles/Vol] 4.1 mmol/L Normal 3.5-5.1 [facility] Comment on above: Performed By: #### L AB15 #### [facility] ([facility]) [address] [place] [address] Sodium [Moles/Vol] 138 mmol/L Normal 136-145 [facility] Comment on above: Performed By: #### L [id number] #### [facility] ([facility]) [address] [place] [address] Urea nitrogen [Mass/Vol] 18 mg/dL Normal 7-25 [facility] Comment on above: Performed By: #### L AB15 #### [facility] ([facility]) [address] [place] [address] UREA NITROGEN/CREATININE (MASS RATIO) IN SER/PLAS 22.0 Normal [facility] Comment on above: Performed By: #### L AB15 #### [facility] ([facility]) [address] [place] [address] CBCon 05-13-2024 Erythrocyte distribution width (RBC) [Ratio] 15.8 % High 11.5-15.0 [facility] Comment on above: Performed By: #### L [id number] #### [facility] ([facility]) [address] [place] [address] ERYTHROCYTE MEAN CORPUSCULAR HEMOGLOBIN CONCENTRATION (G/DL) BY AUTOMATED 31.8 g/dL Low 32.0-35.0 [facility] Comment on above: Performed By: #### L [id number] #### [facility] ([facility]) [address] [place] [address] Hematocrit (Bld) [Volume fraction] 36.2 % Low 39.0-55.0 [facility] Comment on above: Performed By: #### L [id number] #### [facility] ([facility]) [address] [place] [address] Hemoglobin (Bld) [Mass/Vol] 11.5 g/dL Low 13.0-17.0 [facility] Comment on above: Performed By: #### L [id number] #### [facility] ([facility]) [address] [place] [address] MCH (RBC) [Entitic mass] 27.8 pg Normal 27.0-33.0 [facility] Comment on above: Performed By: #### L [id number] #### [facility] ([facility]) [address] [place] [address] MCV (RBC) [Entitic vol] 87.4 fL Normal 82.0-98.0 [facility] Comment on above: Performed By: #### L [id number] #### [facility] ([facility]) [address] [place] [address] PLATELETS (10*3/UL) IN BLOOD AUTOMATED COUNT 219 10*3/uL Normal 150-400 [facility] Comment on above: Performed By: #### L [id number] #### [facility] [address] [place] [address] RBC (Bld) [#/Vol] 4.14 10*6/uL Low 4.20-5.70 [facility] Comment on above: Performed By: #### L [id number] #### [facility] [address] [place] [address] WBC (Bld) [#/Vol] 13.23 10*3/uL High 4.00-10.60 [facility] Comment on above: Performed By: #### L [id number] #### [facility] ([facility]) [address] [place] [address] DSon 05-13-2024 DS Admission Admitted 05/12/2024 for [...] 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 [place]charge Disposition [place] [facility] Discharge Medications Your medication list START taking [...] Medications These medications were sent to [facility] - [place], [place] - [address] [place] [address] [address] [facility] [place] [address] [address] aspirin 325 mg tablet cephalexin 500 mg [...] is performed under the ED CLIA certificate #[id number]. BODY FLUID CULTURE AND ANAEROBIC CULTURE Narrative: The following orders were created for panel order Body fluid culture and anaerobic culture. Procedure Abnormality Status --------- ------ Body fluid culture[[id number]] (more content not included)... 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, initial encounter ([facility]) [T84.032A]Differential performed on cytospin Performed By: #### L [id number] ####[facility] (BEAKER)[address] [place] [address] CELLS COUNTED TOTAL (#) IN BODY FLUID 100 Normal [facility] Comment on above: Order Comment: 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, initial encounter ([facility]) [T84.032A]Differential performed on cytospin Performed By: #### L [id number] ####[facility] (BEAKER)[address] [place] [address] EOSINOPHILS TOTAL PER COUNTED LEUKOCYTES IN BODY FLUID BY MANUAL COUNT Normal [facility] Comment on above: Order Comment: 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, initial encounter ([facility]) [T84.032A]Differential performed on cytospin Performed By: #### L [id number] ####[facility] (BEAKER)[address] [place] [address] LYMPHOCYTES TOTAL PER COUNTED LEUKOCYTES IN BODY FLUID BY MANUAL COUNT 24 Normal [facility] Comment on above: Order Comment: 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, initial encounter ([facility]) [T84.032A]Differential performed on cytospin Performed By: #### L [id number] ####[facility] (BEAKER)[address] [place] [address] MESOTHELIAL CELLS TOTAL PER COUNTED LEUKOCYTES IN BODY FLUID BY MANUAL COUN [facility] Comment on above: Order Comment: 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, initial encounter ([facility]) [T84.032A]Differential performed on cytospin Performed By: #### L [id number] ####[facility] (BEAKER)[address] [place] [address] MONOCYTES+MACROPHAG ES TOTAL PER COUNTED LEUKOCYTES IN BODY FLUID BY MANUAL 58 [facility] Comment on above: Order Comment: 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, initial encounter ([facility]) [T84.032A]Differential performed on cytospin Performed By: #### L [id number] ####[facility] (BEAKER)[address] [place] [address] NEUTROPHILS TOTAL PER COUNTED LEUKOCYTES IN BODY FLUID BY MANUAL COUNT 18 Normal [facility] Comment on above: Order Comment: 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, initial encounter ([facility]) [T84.032A]Differential performed on cytospin Performed By: #### L [id number] ####[facility] (BEAKER)[address] [place] [address] OTHER CELLS BODY FLUID (MANUAL) Normal [facility] Comment on above: Order Comment: 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, initial encounter ([facility]) [T84.032A]Differential performed on cytospin Performed By: #### L [id number] ####[facility] (BEAKER)[address] [place] [address] BODY FLUID CULTUREon 024 Bacteria identified Cx Nom (Unsp spec) No growth at 5 days Normal [facility] Comment on above: Order Comment: 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, initial encounter ([facility]) [T84.032A] Performed By: #### L [id number] ####[facility] (BEAKER)[address] [place] [address] GRAM STAIN RESULT Normal [facility] Comment on above: Order Comment: 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, initial encounter ([facility]) [T84.032A] Result Comment: Poly morphonuclear leukocytes No organisms seen Cytocentrifuge sample Performed By: #### L [id number] ####[facility] (BEAKER)[address] [place] [address] HISTOLOGY - TISSUE EXAMon LAB AP CASE REPORT Normal [facility] Comment on above: Order Comment: 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, initial encounter ([facility]) [T84.032A] Result Comment: Surg ical Pathology Case: [id number] Authorizing Provider: Gretel Chappell MD Collected: 05/12/2024 1150 Ordering Location: [facility] Main Operating Room Received: 05/12/2024 1303 Pathologist: Aixa Hunter MD Intraop: Aixa Hunter MD Specimens: A) - Knee, rt knee synovium B) - Femur, #2 RT Femur tissue C) - Patella, #4;patella tissue D) - Tibia, #5 Rt Tibia E) - Knee, #3; RT knee posterior capsule F) - Tibia, Rt Tibia micro Performed By: #### L [id number] ####[facility] (BEAKER)[address] [place] [address] LAB AP CLINICAL INFORMATION Normal [facility] Comment on above: Order Comment: 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, initial encounter ([facility]) [T84.032A] Result Comment: Post -Op Diagnoses T84.032A - Mechanical loosening of internal right knee prosthetic joint, initial encounter ([facility]) [ICD-10-CM] Performed By: #### L [id number] ####[facility] (BEAKER)[address] [place] [address] LAB AP GROSS DESCRIPTION A. Knee. Normal [facility] Comment on above: Order Comment: 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, initial encounter ([facility]) [T84.032A] Result Comment: Rece ived fresh for frozen section labeled Royce Arizmendi, rt knee synovium is pale manley to feliz-pink, rubbery and shaggy, bulky soft tissue, 4 x 4 x 1.8 cm in aggregate. Sister Superior sections are submitted for frozen section, FS1. The cut surfaces are generally uniform. Additional sections are submitted in 2 and 3. Kathi Davis Pathologists' Wildlife Technician B. Femur. Received fresh for frozen section labeled Royce Arizmendi, #2 RT Femur tissue are pale manley to pink-red rubbery, dull and shaggy soft tissue fragments, 3.3 x 2 x 1.8 cm with minute focal bony fragments up to 0.3 cm. Sister Superior portions of soft tissue are submitted for frozen section, FS1. Additional sections of soft tissue are submitted in 2 and the bony fragments are submitted in 3 after decalcification. Kathi Davis Pathologists' Wildlife Technician CCourtney Patella. Received fresh for frozen section labeled Royce Arizmendi, #4;patella tissue is feliz pink shaggy rubbery soft tissue 4.2 x 3.5 x 1.8 cm. Sister Superior sections are submitted for frozen section, FS1. Additional sections are submitted in 2 and 3. Kathi Davis Pathologists' Wildlife Technician Ac Tibia. Received fresh for frozen section labeled Royce Arizmendi, #5 Rt Tibia are fragments of dull manley soft and pink-feliz rubbery tissue, 1.5 x 2 x 0.8 cm, with intermixed bony fragments. Sister Superior soft tissue is submitted for frozen section, FS1. The remainder of the soft tissue is submitted in 2 and the bony fragments are entirely submitted in 3 after decalcification. Kathi Davis, Pathologists' Wildlife Technician E. Knee. Received fresh for frozen section labeled Royce Arizmendi, #3; RT knee posterior capsule is a portion of feliz pink rubbery tissue 3.8 x 1.2 x 1 cm. The cut surfaces are uniform. Sister Superior sections are submitted for frozen, FS1. The remainder is submitted in 2 and 3. Kathi Davis, Pathologists' Wildlife Technician F. Tibia. Received in formalin labeled Royce Arizmendi, Rt Tibia micro are ragged fragments of feliz bone and pale manley to dark blue-manley rubbery and shaggy soft tissue. Sister Superior sections of the soft tissue are submitted in cassettes 1-2 with bony fragments in 3 after decalcification. Kathi Davis, Pathologists' Wildlife Technician Performed By: #### L [id number] ####[facility] (BEAKER)[address] [place] [address] LAB AP INTRAOPERATIVE CONSULTATION A. Knee. Normal [facility] Comment on above: Order Comment: 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, initial encounter ([facility]) [T84.032A] Result Comment: Resu lted 1:24 PM [...] Aixa Hunter MD Performed By: #### L [id number] ####[facility] (BEAKER)[address] [place] [address] LAB AP MICROSCOPIC DESCRIPTION Microscopic examination performed. [facility] Comment on above: Order Comment: 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, initial encounter ([facility]) [T84.032A] Performed By: #### L [id number] ####[facility] (BEAKER)[address] [place] [address] LAB AP REPORT FINAL DIAGNOSIS NARRATIVE [facility] Comment on above: Order Comment: 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, initial encounter ([facility]) [T84.032A] Result Comment: A. S oft tissue, [...] per high-power field). Performed By: #### L [id number] ####[facility] ([facility])[address] [place] [address] HPon 05-12-2024 HP H&P reviewed. The patient was examined and there are no changes to the H&P. Normal [facility] MRSA/MSSA DNA NASALon 2023 MRSA DNA Negative Normal Negative [facility] Comment on above: Order Comment: Testi ng [...] preclude nasal colonization. Performed By: #### L [id number] #### [facility] ([facility]) [address] [place] [address] MSSA DNA Positive Abnormal Negative [facility] Comment on above: Order Comment: Testi ng [...] preclude nasal colonization. Performed By: #### L [id number] #### [facility] ([facility]) [address] [place] [address] NURSNOTEon 05-12-2024 PORFIRIO Called andrew and told him the room assignment [facility] PORFIRIO Xray at bedside [facility] PORFRIIO Aris Ohara, took prescriptions home [facility] OPNOTEon 05-12-2024 OPNOTE REVISION, TOTAL ARTHROPLASTY, KNEE,STAGE 2, EXCEPT PATELLA WITH INTRAOP FROZEN SECTIONS (R) Operative Note Date: 05/12/2024 Location: [facility] OR Name: Royce Arizmendi, : 1950, Diagnosis Pre-op Diagnosis * Mechanical loosening of internal right knee prosthetic joint, initial encounter ([facility]) [T84.032A] Post-op Diagnosis * Mechanical loosening of internal right knee prosthetic joint, initial encounter ([facility]) [T84.032A] * Instability of internal right knee prosthesis, initial encounter ([facility]) [T84.022A] * 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 [place] INJECTION AA&/STRD FEMORAL NERVE W/IMG GDN [58084] Hardware used: [employer] revision tibial baseplate right side size 5. [employer] RK/HK Gerson stepped left medial/right lateral, tibial wedge augment 5 mm, size 5-6 [employer] RK/HK him he stepped, left lateral/right medial, tibial wedge augment 5 mm, size 5-6. [employer] 2 mm Legion offset shipping manager [employer] tibial cone size long. [employer] constrained Oxinium femoral component measuring size 7 right side. 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 Gordy BOLANOS Procedure Summary Anesthesia: [...] CULTURE Gretel Chappell MD 05/12/24 1146 Routine [id number], [id number], [id number] Description: rt knee fluid 2 Bone Marrow Aspirate Bone Marrow AFB CULTURE, BLOOD Gretel Chappell MD 05/12/24 1453 [id number] Description: Bone Marrow A Knee Synovium HISTOLOGY - TISSUE EXAM Gretel Chappell MD 05/12/24 1150 Yes Routine [id number] Description: rt knee synovium Comment: # of neutrophils per high powered field B Femur Tissue HISTOLOGY - TISSUE EXAM Gretel Chappell MD 05/12/24 1203 Yes [id number] Description: #2 RT Femur tissue C Patella Tissue HISTOLOGY - TISSUE EXAM Gretel Chappell MD 05/12/24 1216 Yes [id number] Description: #4;patella tissue D Tibia Tissue HISTOLOGY - TISSUE EXAM Gretel Chappell MD 05/12/24 1218 Yes [id number] Description: #5 Rt Tibia E Knee Tissue HISTOLOGY - TISSUE EXAM Gretel Chappell MD 05/12/24 1221 Yes [id number] Description: #3; RT knee posterior capsule F Tibia Tissue HISTOLOGY - TISSUE EXAM Gretel Chappell MD 05/12/24 1223 No [id number] Description: Rt Tibia micro G Bone Marrow Aspirate Bone Marrow BONE MARROW EXAM Gretel Chappell MD 05/12/24 1224 Description: Bone Marrow Implants Type Name Action Serial No. Bone Cement CEMENT,BONE,R,1X40US - [id number] - [id number] Implanted [id number] TIBIAL BASEPLATE Implanted TIBIAL WEDGE Implanted TIBIAL WEDGE Implanted OFFSET BARREL ROLLER Implanted TIBIAL CONE Implanted PRESSFIT STEM Implanted FEMORAL COMPONENT Implanted OFFSET BARREL ROLLER Implanted FEMORAL WEDGE Implanted FEMORAL WEDGE Implanted PRESSFIT STEM Implanted ARTICULAR INSERT Implanted Staff: Reed Press Feeder: Lashae Lopez RN Relief Reed Press Feeder: Russell Alejandro RN Relief Scrub: Timothy Griffiths, HUSSAIN; Alton Tian, WICHO Scrub Person: Dorina Myrick, WICHO Inspector Repairer [place]: Wilfredo Mendez CSA Indications: Royce Arizmendi is an 74 y.o. male who is having surgery for Mechanical loosening of internal ri (more content not included)... Normal [facility] PATHOLOGY REVIEWon PATHOLOGY REVIEW Reviewed. Normal [facility] Comment on above: Order Comment: 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, initial encounter ([facility]) [T84.032A] Result Comment: Elec tronically signed by Ramon Lancaster MD on 05/13/24 at 9:21 AM. Performed By: #### L [id number] ####[facility] (BEAKER)[address] [place] [address] POCT GLUCOSE METER UNSOLICIT ED RESULTSon 05-12-2024 Glucose [Mass/Vol] 99 mg/dL Normal 70-105 [facility] Comment on above: Order Comment: Waive d Testing in the ED is performed under the ED CLIA certificate #[id number]. Result Comment: dhol as Performed By: #### L [id number] #### [facility] (BEAKER) [address] [place] [address] TYPE AND SCREENon 05-12-2024 AB SCREEN Negative Normal [facility] Comment on above: Performed By: #### L [id number] #### [facility] BLOOD BANK , ABO group Nom (Bld) A Normal [facility] Comment on above: Performed By: #### L [id number] #### [facility] BLOOD BANK , RH TYPE IN BLOOD Positive Normal [facility] Comment on above: Performed By: #### L [id number] #### [facility] BLOOD BANK , URINALYSISon 05-10-2024 Bilirubin Ql (U) Negative Normal NEG [facility] Comment on above: Performed By: #### U A #### [facility] ([id number]) [address], [address] [place] [address] BLOOD/HGB Small Abnormal NEG [facility] Comment on above: Performed By: #### U A #### [facility] ([id number]) [address], [address] [place] [address] Color (U) YELLOW Normal YELLOW [facility] Comment on above: Performed By: #### U A #### [facility] ([id number]) [address] [facility] [facility] [place] [address] Glucose Ql (U) Negative Normal NEG [facility] Comment on above: Performed By: #### U A #### [facility] ([id number]) [address], [address] [place] [address] Ketones Ql (U) Negative Normal NEG [facility] Comment on above: Performed By: #### U A #### [facility] ([id number]) [address], [address] [place] [address] Leukocyte esterase Test strip Ql (U) Negative Normal NEG [facility] Comment on above: Performed By: #### U A #### [facility] ([id number]) [address], [address] [place] [address] MUCOUS PRESENT Abnormal NONE [facility] Comment on above: Performed By: #### U A #### [facility] ([id number]) [address], [address] [place] [address] Nitrite Ql (U) Negative Normal NEG [facility] Comment on above: Performed By: #### U A #### [facility] ([id number]) [address], [address] [place] [address] pH (U) 5.5 [pH] Normal 5.0-8.5 [facility] Comment on above: Performed By: #### U A #### [facility] ([id number]) [address], [address] [place] [address] Protein Ql (U) Negative Normal NEG [facility] Comment on above: Performed By: #### U A #### [facility] ([id number]) [address], [address] [place] [address] R.B.CELLS 1 /hpf Normal 0-5 [facility] Comment on above: Performed By: #### U A #### [facility] ([id number]) [address] [facility] [place] [address] Specific gravity (U) [Rel density] 1.026 Normal 1.003-1.035 [facility] Comment on above: Performed By: #### U A #### [facility] ([id number]) [address] [facility] [facility] [place] [address] SQUAMOUS EPITHELIUM <1 Normal 0-5 [facility] Comment on above: Performed By: #### U A #### [facility] ([id number]) [address] [facility] [place] [address] TURBIDITY CLEAR Normal CLEAR [facility] Comment on above: Performed By: #### U A #### [facility] ([id number]) [address], [address] [place] [address] Urobilinogen (U) [Mass/Vol] mg/dL Normal <1.1 [facility] Comment on above: Performed By: #### U A #### [facility] ([id number]) [address], [address] [place] [address] W.B.CELLS 1 /hpf Normal 0-5 [facility] Comment on above: Performed By: #### U A #### [facility] ([id number]) [address], [address] [place] [address] URINE CULTUREon 05-10-2024 Bacteria identified Cx Nom [...] TOBRAMYCIN S <=1 F TRIMETH/SULFAMETHOXAZOL E S <=/19 F Susceptible [facility] Comment on above: Performed By: #### 6 30-4 #### [facility] ([id number]) [address], [address] [place] [address] MRSA PCR NASALon 05-04-2024 MRSA DNA QUINTIN+probe Ql (Unsp spec) Negative Normal NEG [facility] Comment on above: Performed By: #### 3 5492-8 #### [facility] ([id number]) [address], [address] [place] [address] Orders Onlyon 05-04-2024 Orders Only [id number] Royce Arizmendi W 1950 M Date Provider Department Center 05/04/2024 [id number], HISTORICAL [facility] PAT MD Medical C No family history on file Normal [facility] PROTIME AND INRon 05-04-2024 INR Coag (PPP) [Relative time] 1.2 {INR} High 0.8-1.1 [facility] Comment on above: Performed By: #### P INR, 44392-8 #### [facility] ([id number]) [address] [place] [address], [place] [address] PT Coag (PPP) [Time] 13.4 s High 9.8-13.2 [facility] Comment on above: Result Comment: NEW REFERENCE RANGE Performed By: #### P INR, 93173-7 #### [facility] ([id number]) [address] [place] [address] aPTT Coag (PPP) [Time]on aPTT Coag (Bld) [Time] 34 s Normal 26-37 [facility] Comment on above: Result Comment: NEW REFERENCE RANGE Performed By: #### P INR, 14086-5 #### [facility] ([id number]) [address] [place] [address] 36on 04-27-2024 36 Patient scheduled wi ll get blood work done closer to his house [facility] Prep for Procedureon 024 Prep for Procedure [id number] UgoRoyce 1950 Date Provider Department [place] 04/27/2024 CeasarJAKE WELSH MP ORTHO MPORT No family history on file [facility] on 04-26-2024 36 Patient is calling b ack states he was returning a phone call but theres no documentation on who called him back. [facility] 36 Patient would like t o schedule his surgery for his knees, states his phone isn't working correctly he will probably miss the first call but will call right back. [facility] 36on 04-20-2024 36 Left voicemail to ca ll back and discuss. [facility] 36 Patient called and h as question re-guarding appointment yesterday, patient would like call back [phone] [facility] HPon 04-19-2024 Orthopedic Surgery Subjective New Patient and Pain of the Right Knee 04/19/24 Royce Maddi Arizmendi is a 74 y.o. male presenting for evaluation of right knee pain. Patient reports that he has had pain of his right knee for the last several months, which is worse with walking. Patient reports that he has a history of a right total knee replacement performed by Dr. Chico Sutton MD at [facility] 5 years ago on 14 July 2019. [...] S/p bilateral (more content not included)... Normal [facility] Office Visiton 04-19-2024 Follow-up visit [id number] Royce Arizmendi 1950 M Date Provider Department Center 04/19/2024 GRETEL SIU MP ORTHO MPORTHO No family history on file Level of Service:00365 [facility] OFFICE/OUTPATIENT NEW HIGH MDM 60 MINUTES (GC,57) Reason for Visit and Comments: New Patient [632] Pain [136] Normal [facility] Vital Signs Date Time Vital Sign Value Performing Clinician Facility 08-19-2025 10:29-0400 Body mass index (BMI) [Ratio] 50.58 kg/m2 Justino Gaspar MD Work Phone: [facility] 08-19-2025 10:29-0400 Body weight 169.19 kg Justino Gaspar MD Work Phone: [facility] 08-19-2025 10:29-0400 Diastolic blood pressure 78 mm[Hg] Justino Gaspar MD Work Phone: [facility] 08-19-2025 10:29-0400 Heart rate 75 /min Justino Gaspar MD Work Phone: [facility] 08-19-2025 10:29-0400 Respiratory rate 18 /min Justino Gaspar MD Work Phone: [facility] 08-19-2025 10:29-0400 SaO2% (BldA) [Mass fraction] 96 % Justino Gaspar MD Work Phone: [facility] 08-19-2025 10:29-0400 Systolic blood pressure 118 mm[Hg] Justino Gaspar MD Work Phone: [facility] 08-09-2025 13:46-0400 Body height 182.9 cm Jonathon Dahl DPM Work Phone: [facility] 08-09-2025 13:46-0400 Body mass index (BMI) [Ratio] 50.59 kg/m2 Jonathon BLACKMANM Work Phone: [facility] 08-09-2025 13:46-0400 Body weight 169.19 kg Jonathon Dahl DPM Work Phone: [facility] 07-25-2025 10:09-0400 Body mass index (BMI) [Ratio] 51.25 kg/m2 Justino Gaspar MD Work Phone: [facility] 07-25-2025 10:09-0400 Body weight 171.46 kg Justino Gaspar MD Work Phone: [facility] 07-25-2025 10:09-0400 Diastolic blood pressure 72 mm[Hg] Justino Gaspar MD Work Phone: [facility] 07-25-2025 10:090400 Heart rate 80 /min Justino Gaspar MD Work Phone: [facility] 07-25-2025 10:09-0400 Respiratory rate 20 /min Justino Gaspar MD Work Phone: [facility] 07-25-2025 10:090400 SaO2% (BldA) [Mass fraction] 97 % Justino Gaspar MD Work Phone: [facility] 07-25-2025 10:09-0400 Systolic blood pressure 110 mm[Hg] Justino Gaspar MD Work Phone: [facility] 07-11-2025 11:01-0400 Body height 182.9 cm Jonathon Dahl DPM Work Phone: [facility] 07-11-2025 11:01-0400 Body mass index (BMI) [Ratio] 50.59 kg/m2 Jonathon Dahl DPM Work Phone: [facility] 07-11-2025 11:01-0400 Body weight 169.19 kg Jonathon Dahl DPM Work Phone: [facility] 07-11-2025 09:26-0400 Body mass index (BMI) [Ratio] 50.58 kg/m2 Bo Michelle CYTOGENETIC TECHNOLOGIST-[employer]ET[employer] SEALER Work Phone: [facility] 07-11-2025 09:26-0400 Body weight 169.19 kg Bo Michelle CYTOGENETIC TECHNOLOGIST-[employer]IGARET[employer] SEALER Work Phone: [facility] 07-11-2025 09:26-0400 Diastolic blood pressure 86 mm[Hg] Bo Michelle CYTOGENETIC TECHNOLOGIST-CIGARETTE C[employer] SEALER Work Phone: [facility] 07-11-2025 09:26-0400 Heart rate 64 /min Bo Michelle CYTOGENETIC TECHNOLOGIST-CIGARETTE CART[employer] SEALER Work Phone: [facility] 07-11-2025 09:26-0400 Respiratory rate 20 /min Bo Michelle CYTOGENETIC TECHNOLOGIST-CIGARETTE CART[employer] SEALER Work Phone: [facility] 07-11-2025 09:26-0400 SaO2% (BldA) [Mass fraction] 99 % Bo Michelle CYTOGENETIC TECHNOLOGIST-CIGARETTE CART[employer] SEALER Work Phone: [facility] 07-11-2025 09:26-0400 Systolic blood pressure 130 mm[Hg] Bo Michelle CYTOGENETIC TECHNOLOGIST-CIGARETTE CART[employer] SEALER Work Phone: [facility] 06-16-2025 14:14-0400 Body height 182.9 cm Jonathon Rus DPM Work Phone: [facility] 06-16-2025 14:14-0400 Body mass index (BMI) [Ratio] 48.82 kg/m2 Jonathon Rogersher DPM Work Phone: [facility] 06-16-2025 14:14-0400 Body weight 163.29 kg Jonathon Hesham DPM Work Phone: [facility] 04-06-2025 08:23-0400 Body height 182.9 cm Jonathon Dahl DPM Work Phone: [facility] 04-06-2025 08:23-0400 Body mass index (BMI) [Ratio] 48.82 kg/m2 Jonathon Dahl DPM Work Phone: [facility] 04-06-2025 08:23-0400 Body weight 163.29 kg Jonathon Kenher DPM Work Phone: [facility] 03-09-2025 14:44-0400 Body mass index (BMI) [Ratio] 49.22 kg/m2 Bo Merinoer CYTOGENETIC TECHNOLOGIST-[employer]IGAR[employer] SEALER Work Phone: [facility] 03-09-2025 14:44-0400 Body weight 164.66 kg Bo Michelle CYTOGENETIC TECHNOLOGIST-[employer] SEALER Work Phone: [facility] [employer] [facility] 03-09-2025 14:44-0400 Diastolic blood pressure 74 mm[Hg] Bo Michelle CYTOGENETIC TECHNOLOGIST-[employer] SEALER Work Phone: [facility] [employer] [facility] 03-09-2025 14:44-0400 Heart rate 68 /min Bo Michelle CYTOGENETIC TECHNOLOGIST-[employer] SEALER Work Phone: [facility] [employer] [facility] 03-09-2025 14:44-0400 Respiratory rate 18 /min Bo Michelle CYTOGENETIC TECHNOLOGIST-[employer]AR[employer] SEALER Work Phone: [facility] [employer] [facility] 03-09-2025 14:44-0400 SaO2% (BldA) [Mass fraction] 97 % Bo Michelle APRN-[employer]IGARET[employer]ART[employer] SEALER Work Phone: [facility] [employer] [facility] 03-09-2025 14:44-0400 Systolic blood pressure 130 mm[Hg] Bo Michelle APRN-[employer] SEALER Work Phone: [facility] [employer] [facility] 03-08-2025 11:05-0400 Body height 182.9 cm Guerda Aggarwal MD Work Phone: [facility] 03-08-2025 11:05-0400 Body mass index (BMI) [Ratio] 48.81 kg/m2 Guerda Aggarwal MD Work Phone: [facility] [employer] [facility] 03-08-2025 11:05-0400 Body weight 163.29 kg Guerda Aggarwal MD Work Phone: [facility] [employer] [facility] 03-08-2025 11:05-0400 Diastolic blood pressure 73 mm[Hg] Guerda Aggarwal MD Work Phone: [facility] [employer] [facility] 03-08-2025 11:05-0400 Heart rate 80 /min Guerda Aggarwal MD Work Phone: [facility] 03-08-2025 11:05-0400 SaO2% (BldA) [Mass fraction] 95 % Guerda Aggarwal MD Work Phone: [facility] 03-08-2025 11:05-0400 Systolic blood pressure 128 mm[Hg] Guerda Aggarwal MD Work Phone: [facility] 02-28-2025 15:26-0400 Body mass index (BMI) [Ratio] 48.96 kg/m2 Bo Schlachter CYTOGENETIC TECHNOLOGIST-CIGARETTE CARTON SEALER Work Phone: [facility] 02-28-2025 15:26-0400 Body weight 163.75 kg Bo Schlachter CYTOGENETIC TECHNOLOGIST-CIGARETTE CARTON SEALER Work Phone: [facility] 02-28-2025 15:26-0400 Diastolic blood pressure 72 mm[Hg] Bo Schlachter CYTOGENETIC TECHNOLOGIST-CIGARETTE CART[employer] SEALER Work Phone: [facility] 02-28-2025 15:26-0400 Heart rate 76 /min Bo Schlachter CYTOGENETIC TECHNOLOGIST-CIGARETTE CART[employer] SEALER Work Phone: [facility] 02-28-2025 15:26-0400 Respiratory rate 18 /min Bo Schlachter CYTOGENETIC TECHNOLOGIST-CIGARETTE CART[employer] SEALER Work Phone: [facility] 02-28-2025 15:26-0400 SaO2% (BldA) [Mass fraction] 97 % Bo Schlachter CYTOGENETIC TECHNOLOGIST-CIGARETTE CART[employer] SEALER Work Phone: [facility] 02-28-2025 15:26-0400 Systolic blood pressure 134 mm[Hg] Bo Schesterchter CYTOGENETIC TECHNOLOGIST-CIGARETTE CART[employer] SEALER Work Phone: [facility] 02-24-2025 13:17-0400 Body height 182.9 cm Jonathon Dahl DPM Work Phone: [facility] 02-24-2025 13:17-0400 Body mass index (BMI) [Ratio] 48.82 kg/m2 Jonathon Dahl DPM Work Phone: [facility] 02-24-2025 13:17-0400 Body weight 163.29 kg Jonathon Dahl DPM Work Phone: [facility] 02-21-2025 14:58-0400 Body mass index (BMI) [Ratio] 49.64 kg/m2 Bo Michelle CYTOGENETIC TECHNOLOGIST-[employer]IGARETTE C[employer] SEALER Work Phone: [facility] 02-21-2025 14:58-0400 Body weight 166.02 kg Bo Martinchter CYTOGENETIC TECHNOLOGIST-CIGARETTE C[employer] SEALER Work Phone: [facility] 02-21-2025 14:58-0400 Diastolic blood pressure 76 mm[Hg] Bo Merinoer CYTOGENETIC TECHNOLOGIST-CIGARETTE C[employer] SEALER Work Phone: [facility] 02-21-2025 14:58-0400 Heart rate 96 /min Bo Angeliqueer CYTOGENETIC TECHNOLOGIST-CIGARETTE C[employer] SEALER Work Phone: [facility] 02-21-2025 14:58-0400 Respiratory rate 20 /min Bo Mariochter CYTOGENETIC TECHNOLOGIST-CIGARETTE C[employer] SEALER Work Phone: [facility] 02-21-2025 14:58-0400 SaO2% (BldA) [Mass fraction] 96 % Bo Merinoer CYTOGENETIC TECHNOLOGIST-CIGARETTE CARTON SEALER Work Phone: [facility] 02-21-2025 14:58-0400 Systolic blood pressure 130 mm[Hg] Bo Merinoer CYTOGENETIC TECHNOLOGIST-CIGARETTE CARTON SEALER Work Phone: [facility] 12-29-2024 14:15-0500 Body height 182.9 cm Jonathon Dahl DPM Work Phone: [facility] 12-29-2024 14:15-0500 Body mass index (BMI) [Ratio] 47.47 kg/m2 Jonathon Dahl DPM Work Phone: [facility] 12-29-2024 14:15-0500 Body weight 158.76 kg Jonathon Dahl DPM Work Phone: [facility] 12-13-2024 13:03-0500 Body height 182.9 cm Jonathon Dahl DPM Work Phone: [facility] 12-13-2024 13:03-0500 Body mass index (BMI) [Ratio] 47.47 kg/m2 Jonathon Dahl DPM Work Phone: [facility] 12-13-2024 13:03-0500 Body weight 158.76 kg Jonathon Dahl DPM Work Phone: [facility] 11-24-2024 14:52-0500 Body height 182.9 cm Jonathon Dahl DPM Work Phone: [facility] 11-24-2024 14:52-0500 Body mass index (BMI) [Ratio] 47.47 kg/m2 Jonathon Dahl DPM Work Phone: [facility] 11-24-2024 14:52-0500 Body weight 158.76 kg Jonathon Dahl DPM Work Phone: [facility] 10-21-2024 14:39-0500 Body height 182.9 cm Megan Blank MD Work Phone: [facility] 10-21-2024 14:39-0500 Body mass index (BMI) [Ratio] 47.4 kg/m2 Megan Blank MD Work Phone: [facility] 10-21-2024 14:39-0500 Body temperature 95.7 [degF] Megan Blank MD Work Phone: [facility] 10-21-2024 14:39-0500 Body weight 158.53 kg Megan Blank MD Work Phone: [facility] 10-21-2024 14:39-0500 Diastolic blood pressure 82 mm[Hg] Megan Blank MD Work Phone: [facility] 10-21-2024 14:39-0500 Heart rate 80 /min Megan Blank MD Work Phone: [facility] 10-21-2024 14:39-0500 Respiratory rate 16 /min Megan Blank MD Work Phone: [facility] 10-21-2024 14:39-0500 Systolic blood pressure 138 mm[Hg] Megan Blank MD Work Phone: [facility] 10-07-2024 14:36-0500 Body mass index (BMI) [Ratio] 47.6 kg/m2 Cesar Valle MD Work Phone: [facility] 10-07-2024 14:36-0500 Body weight 159.21 kg Cesar Valle MD Work Phone: [facility] 10-07-2024 14:36-0500 Diastolic blood pressure 83 mm[Hg] Cesar Vlale MD Work Phone: [facility] 10-07-2024 14:36-0500 Heart rate 87 /min Cesar Valle MD Work Phone: [facility] 10-07-2024 14:36-0500 Systolic blood pressure 141 mm[Hg] Cesar Valle MD Work Phone: [facility] 09-28-2024 14:48-0500 Body height 182.9 cm Megan Blank MD Work Phone: [facility] 09-28-2024 14:48-0500 Body mass index (BMI) [Ratio] 46.93 kg/m2 Megan Blank MD Work Phone: [facility] 09-28-2024 14:48-0500 Body temperature 97.2 [degF] Megan Blank MD Work Phone: [facility] 09-28-2024 14:48-0500 Body weight 156.94 kg Megan Blank MD Work Phone: [facility] 09-28-2024 14:48-0500 Diastolic blood pressure 70 mm[Hg] Megan Blank MD Work Phone: [facility] 09-28-2024 14:48-0500 Heart rate 97 /min Megan Blank MD Work Phone: [facility] 09-28-2024 14:48-0500 Respiratory rate 18 /min Megan Blank MD Work Phone: [facility] 09-28-2024 14:48-0500 SaO2% (BldA) [Mass fraction] 96 % Megan Blank MD Work Phone: [facility] 09-28-2024 14:48-0500 Systolic blood pressure 124 mm[Hg] Megan Blank MD Work Phone: [facility] 08-12-2024 14:57-0400 Body height 182.9 cm Jonathon Dahl DPM Work Phone: [facility] 08-12-2024 14:57-0400 Body mass index (BMI) [Ratio] 47.47 kg/m2 Jonathon Hesham DPM Work Phone: [facility] 08-12-2024 14:57-0400 Body weight 158.76 kg Jonathon Hesham DPM Work Phone: [facility] 08-09-2024 10:26-0400 Body height 182.9 cm Megan Blank MD Work Phone: [facility] 08-09-2024 10:26-0400 Body mass index (BMI) [Ratio] 46.11 kg/m2 Megan Blank MD Work Phone: [facility] 08-09-2024 10:26-0400 Body temperature 98.71 [degF] Megan Blank MD Work Phone: [facility] 08-09-2024 10:26-0400 Body weight 154.22 kg Megan Blank MD Work Phone: [facility] 08-09-2024 10:26-0400 Diastolic blood pressure 80 mm[Hg] Megan Blank MD Work Phone: [facility] 08-09-2024 10:26-0400 Heart rate 88 /min Megan Blank MD Work Phone: [facility] 08-09-2024 10:26-0400 Respiratory rate 16 /min Megan Blank MD Work Phone: [facility] 08-09-2024 10:26-0400 Systolic blood pressure 132 mm[Hg] Megan Blank MD Work Phone: [facility] 07-30-2024 14:53-0400 Body height 182.9 cm Megan Blank MD Work Phone: [facility] 07-30-2024 14:53-0400 Body mass index (BMI) [Ratio] 46.11 kg/m2 Megan Blank MD Work Phone: [facility] 07-30-2024 14:53-0400 Body temperature 97.9 [degF] Megan Blank MD Work Phone: [facility] 07-30-2024 14:53-0400 Body weight 154.22 kg Megan Blank MD Work Phone: [facility] 07-30-2024 14:53-0400 Diastolic blood pressure 70 mm[Hg] Megan Blank MD Work Phone: [facility] 07-30-2024 14:53-0400 Heart rate 88 /min Megan Blank MD Work Phone: [facility] 07-30-2024 14:53-0400 Respiratory rate 16 /min Megan Blank MD Work Phone: [facility] 07-30-2024 14:53-0400 Systolic blood pressure 126 mm[Hg] Megan Blank MD Work Phone: [facility] 06-25-2024 13:00-0400 Body mass index (BMI) [Ratio] 47.1 kg/m2 Jo VARGASCIGARETTE CARTON SEALER Work Phone: [facility] 06-25-2024 13:00-0400 Body temperature 97.9 [degF] Jo Stone APRN-CIGARETTE CART[employer] SEALER Work Phone: [facility] 06-25-2024 13:00-0400 Body weight 157.53 kg Jo Stone APRN-CIGARETTE CART[employer] SEALER Work Phone: [facility] 06-25-2024 13:00-0400 Diastolic blood pressure 75 mm[Hg] Jo Stone APRN-CIGARETTE C[employer] SEALER Work Phone: [facility] 06-25-2024 13:00-0400 Heart rate 91 /min Jo Stone CYTOGENETIC TECHNOLOGIST-CIGARETTE [employer] SEALER Work Phone: [facility] 06-25-2024 13:00-0400 Respiratory rate 18 /min Jo Stone CYTOGENETIC TECHNOLOGIST-CIGARETTE [employer] SEALER Work Phone: [facility] 06-25-2024 13:00-0400 Systolic blood pressure 113 mm[Hg] Jo Stone CYTOGENETIC TECHNOLOGIST-[employer]IG[employer]TE [employer] SEALER Work Phone: [facility] 06-25-2024 09:32-0400 Body height 182.9 cm Megan Blank MD Work Phone: [facility] 06-25-2024 09:32-0400 Body mass index (BMI) [Ratio] 46.79 kg/m2 Megan Blank MD Work Phone: [facility] 06-25-2024 09:32-0400 Body temperature 98.01 [degF] Megan Blank MD Work Phone: [facility] 06-25-2024 09:32-0400 Body weight 156.49 kg Megan Blank MD Work Phone: [facility] 06-25-2024 09:32-0400 Diastolic blood pressure 84 mm[Hg] Megan Blank MD Work Phone: [facility] 06-25-2024 09:32-0400 Heart rate 80 /min Megan Blank MD Work Phone: [facility] 06-25-2024 09:32-0400 Respiratory rate 16 /min Megan Blank MD Work Phone: [facility] 06-25-2024 09:32-0400 Systolic blood pressure 140 mm[Hg] Megan Blank MD Work Phone: [facility] 06-24-2024 10:59-0400 Diastolic blood pressure 80 mm[Hg] Cesar Valle MD Work Phone: [facility] 06-24-2024 10:59-0400 Heart rate 88 /min Cesar Valle MD Work Phone: [facility] 06-24-2024 10:59-0400 SaO2% (BldA) [Mass fraction] 95 % Cesar Valle MD Work Phone: [facility] 06-24-2024 10:59-0400 Systolic blood pressure 130 mm[Hg] Cesar Valle MD Work Phone: [facility] 06-24-2024 10:57-0400 Body height 182.9 cm Cesar Valle MD Work Phone: [facility] 06-24-2024 10:57-0400 Body mass index (BMI) [Ratio] 47.06 kg/m2 Cesar Valle MD Work Phone: [facility] 06-24-2024 10:57-0400 Body weight 157.4 kg Cesar Valle MD Work Phone: [facility] 06-15-2024 16:01-0400 Body height 182.9 cm Megan Blank MD Work Phone: [facility] 06-15-2024 16:01-0400 Body mass index (BMI) [Ratio] 47.13 kg/m2 Megan Blank MD Work Phone: [facility] 06-15-2024 16:01-0400 Body temperature 98.01 [degF] Megan Blank MD Work Phone: [facility] 06-15-2024 16:01-0400 Body weight 157.63 kg Megan Blank MD Work Phone: [facility] 06-15-2024 16:01-0400 Diastolic blood pressure 80 mm[Hg] Megan Blank MD Work Phone: [facility] 06-15-2024 16:01-0400 Heart rate 88 /min Megan Blank MD Work Phone: [facility] 06-15-2024 16:01-0400 Respiratory rate 16 /min Megan Blank MD Work Phone: [facility] 06-15-2024 16:01-0400 Systolic blood pressure 124 mm[Hg] Megan Blank MD Work Phone: [facility] 06-04-2024 09:37-0400 Body height 182.9 cm Megan Blank MD Work Phone: [facility] 06-04-2024 09:37-0400 Body mass index (BMI) [Ratio] 46.79 kg/m2 Megan Blank MD Work Phone: [facility] 06-04-2024 09:37-0400 Body temperature 97.9 [degF] Megan Blank MD Work Phone: [facility] 06-04-2024 09:37-0400 Body weight 156.49 kg Megan Blank MD Work Phone: [facility] 06-04-2024 09:37-0400 Diastolic blood pressure 80 mm[Hg] Megan Blank MD Work Phone: [facility] 06-04-2024 09:37-0400 Heart rate 80 /min Megan Blank MD Work Phone: [facility] 06-04-2024 09:37-0400 Respiratory rate 16 /min Megan Blank MD Work Phone: [facility] 06-04-2024 09:37-0400 Systolic blood pressure 136 mm[Hg] Megan Blank MD Work Phone: [facility] 03-11-2024 09:17-0400 Body height 182.9 cm Megan Blank MD Work Phone: [facility] 03-11-2024 09:17-0400 Body mass index (BMI) [Ratio] 48.42 kg/m2 Megan Blank MD Work Phone: [facility] 03-11-2024 09:17-0400 Body weight 161.93 kg Megan Blank MD Work Phone: [facility] 03-11-2024 09:17-0400 Diastolic blood pressure 80 mm[Hg] Megan Blank MD Work Phone: [facility] 03-11-2024 09:17-0400 Heart rate 88 /min Megan Blank MD Work Phone: [facility] 03-11-2024 09:17-0400 Respiratory rate 16 /min Megan Blank MD Work Phone: [facility] 03-11-2024 09:17-0400 Systolic blood pressure 140 mm[Hg] Megan Blank MD Work Phone: [facility] 01-26-2024 14:00-0400 Body height 182.9 cm Megan Blank MD Work Phone: [facility] 01-26-2024 14:00-0400 Body mass index (BMI) [Ratio] 48.82 kg/m2 Megan Blank MD Work Phone: [facility] 01-26-2024 14:00-0400 Body weight 163.29 kg Megan Blank MD Work Phone: [facility] 01-26-2024 14:00-0400 Diastolic blood pressure 76 mm[Hg] Megan Blank MD Work Phone: [facility] 01-26-2024 14:00-0400 Heart rate 88 /min Megan Blank MD Work Phone: [facility] 01-26-2024 14:00-0400 Respiratory rate 16 /min Megan Blank MD Work Phone: [facility] 01-26-2024 14:00-0400 Systolic blood pressure 120 mm[Hg] Megan Blank MD Work Phone: [facility] Encounters Encounter Date Encounter Type Care Provider Facility Start: 08-19-2025 End: 08-19-2025 Transitional care manage srvc 7 day discharge Justino Gaspar MD Work Phone: [facility] Comment on above: Lymphedema associate d with obesity (Primary Dx); Essential hypertension; Chronic bronchitis, unspecified chronic bronchitis type ([facility]); Cellulitis of lower extremity, unspecified laterality Start: 08-15-2025 End: 08-15-2025 Telephone encounter Margot Carreon CMA [facility] Start: 08-09-2025 End: 08-09-2025 Bamboo flowsheet Jonathon Dahl DPM Work Phone: [facility] Start: 08-09-2025 End: 08-09-2025 Bamboo flowsheet Jonathon Dahl DPM Work Phone: [facility] Start: 08-09-2025 End: 08-09-2025 ambulatory JONATHON DAHL Not Available Start: 08-09-2025 End: 08-09-2025 Office outpatient visit 15 minutes Jonathon Dahl DPM Work Phone: [facility] Comment on above: Plantar wart, left f oot (Primary Dx); Acquired keratoderma; Left foot pain; Difficulty walking Start: 08-03-2025 End: 08-03-2025 Orders Only Justino Gaspar MD Work Phone: 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 Comment on above: Cellulitis of right lower leg (Primary Dx); Cellulitis of left lower leg; Lymphedema of both lower extremities Start: 07-25-2025 End: 07-25-2025 ambulatory JUSTINO GASPAR [facility] Start: 07-11-2025 End: 07-11-2025 Bamboo flowsheet Jonathon Dahl DPM Work Phone: [facility] Start: 07-11-2025 End: 07-11-2025 Bamboo flowsheet Jonathon Dahl DPM Work Phone: [facility] Start: 07-11-2025 End: 07-11-2025 Patient encounter procedure Jonathon Dahl DPM Work Phone: [facility] Comment on above: Onychomycosis (Prima ry Dx); Onychodystrophy; Pain around toenail, right foot; Pain around toenail, left foot Start: 07-11-2025 End: 07-11-2025 ambulatory JONATHON DAHL Not Available Start: 07-11-2025 End: 07-11-2025 Office outpatient visit 25 minutes [facility] CYTOGENETIC TECHNOLOGISTCIGARETTE CARTON SEALER Work Phone: [facility] Comment on above: Lymphedema of both l ower extremities (Primary Dx); Cellulitis of right lower leg; Cellulitis of left lower leg Start: 07-11-2025 End: 07-11-2025 ambulatory [facility] Start: 06-16-2025 End: 06-16-2025 Office outpatient visit 15 minutes Jonathon Dahl DPM Work Phone: [facility] Comment on above: Plantar wart, left f oot (Primary Dx); Acquired keratoderma; Left foot pain; Difficulty walking Start: 06-16-2025 End: 06-16-2025 Bamboo flowsheet Jonathon Dahl DPM Work Phone: [facility] Start: 06-16-2025 End: 06-16-2025 Bamboo flowsheet Jonathon Dahl DPM Work Phone: [facility] Start: 06-16-2025 End: 06-16-2025 ambulatory JONATHON DAHL Not Available Start: 05-18-2025 End: 05-18-2025 Refill Megan Blank MD Work Phone: [facility] Start: 05-14-2025 End: 05-16-2025 Refill Megan Blank MD Work Phone: [facility] Start: 04-28-2025 End: 04-28-2025 Refill Kathy Kendrick LPN [facility] Comment on above: Other iron deficienc y anemia Start: 04-27-2025 End: 04-27-2025 Telephone encounter Guerda Aggarwal MD Work Phone: [facility] Comment on above: Other iron deficienc y anemia (Primary Dx) Start: 04-27-2025 ambulatory GUERDA AGGARWAL [facility] Start: 04-06-2025 End: 04-06-2025 Bamboo flowsheet Jonathon Dahl DPM Work Phone: [facility] Start: 04-06-2025 End: 04-06-2025 Bamboo flowsheet Jonathon Dahl DPM Work Phone: [facility] Start: 04-06-2025 End: 04-06-2025 Office outpatient visit 15 minutes Jonathon Dahl DPM Work Phone: [facility] Comment on above: Bursitis of left jah t (Primary Dx); Acquired keratoderma; Left foot pain; Difficulty walking Start: 04-06-2025 End: 04-06-2025 ambulatory JONATHON DAHL Not Available Start: 03-14-2025 End: 03-14-2025 Orders Only Justino Gaspar MD Work Phone: [facility] Comment on above: Nonrheumatic aortic valve stenosis (Primary Dx) Start: 03-09-2025 End: 03-09-2025 ambulatory [facility] Start: 03-09-2025 End: 03-09-2025 [facility] CYTOGENETIC TECHNOLOGIST-CIGARETTE CARTON SEALER Work Phone: [facility] Comment on above: Lymphedema of both l ower extremities (Primary Dx); Cellulitis of right lower leg Start: 03-09-2025 End: 03-09-2025 [facility] Start: 03-08-2025 End: 03-08-2025 Office outpatient visit 25 minutes Guerda Aggarwal MD Work Phone: [facility] Comment on above: STEFF (obstructive sle ep apnea) (Primary Dx); Iron deficiency anemia, unspecified iron deficiency anemia type; RLS (restless legs syndrome); Class 3 severe obesity due to excess calories with serious comorbidity and body mass index (BMI) of 45.0 to 49.9 in adult Start: 03-08-2025 End: 03-08-2025 ambulatory GUERDA AGGARWAL [facility] Start: 03-02-2025 End: 03-02-2025 Orders Only [facility] CYTOGENETIC TECHNOLOGIST-CIGARETTE CARTON SEALER Work [facility] Comment on above: Lymphedema of both l ower extremities (Primary Dx); Cellulitis of right lower leg Start: 02-28-2025 End: 02-28-2025 Office outpatient visit 15 minutes Bo Michelle CYTOGENETIC TECHNOLOGIST-CIGARETTE CARTON SEALER Work Phone: [facility] Comment on above: Lymphedema of both l ower extremities (Primary Dx); Cellulitis of right lower leg Start: 02-28-2025 End: 02-28-2025 ambulatory [facility] Start: 02-24-2025 End: 02-24-2025 Bamboo flowsheet Jonathon Dahl DPTaj Work Phone: [facility] Start: 02-24-2025 End: 02-24-2025 Bamboo flowsheet Jonathon Dahl DPTaj Work Phone: [facility] Start: 02-24-2025 End: 02-24-2025 Telephone encounter [facility] Start: 02-24-2025 End: 02-24-2025 Patient encounter procedure Jonathon Dahl DPTaj Work Phone: [facility] Comment on above: Onychomycosis (Prima ry Dx); Onychodystrophy; Pain around toenail, right foot; Pain around toenail, left foot Start: 02-24-2025 End: 02-24-2025 ambulatory JONATHON DAHL Not Available Start: 02-21-2025 End: 02-21-2025 ambulatory [facility] Start: 02-21-2025 End: 02-21-2025 Office outpatient visit 25 minutes [facility] CYTOGENETIC TECHNOLOGIST-CIGARETTE CARTON SEALER Work Phone: [facility] Comment on above: Lymphedema of both l ower extremities (Primary Dx); Cellulitis of right lower leg; Arthritis of left sacroiliac joint; Chronic bronchitis, unspecified chronic bronchitis type ([facility]); BMI 45.0-49.9, adult ([facility]); Pure hypercholesterolemia; Essential hypertension Start: 02-21-2025 End: 02-21-2025 Telephone encounter Adriana Weaver RN Work Phone: [facility] Start: 01-26-2025 End: 01-26-2025 Office outpatient visit 15 minutes Jonathon Dahl DPM Work Phone: [facility] Comment on above: Plantar wart, left f oot (Primary Dx); Acquired keratoderma; Left foot pain; Difficulty walking Start: 01-26-2025 End: 01-26-2025 ambulatory JONATHON DAHL Not Available Start: 01-26-2025 End: 01-26-2025 Bamboo flowsheet Jonathon Dahl DPM Work Phone: [facility] Start: 01-26-2025 End: 01-26-2025 Bamboo flowsheet Jonathon Dahl DPM Work Phone: [facility] Start: 12-29-2024 End: 12-29-2024 Office outpatient visit 15 minutes Jonathon Dahl DPM Work Phone: [facility] Comment on above: Plantar wart, left f oot (Primary Dx); Acquired keratoderma; Left foot pain; Difficulty walking Start: 12-29-2024 End: 12-29-2024 ambulatory JONATHON DAHL Not Available Start: 12-29-2024 End: 12-29-2024 Bamboo flowsheet Jonathon Dahl DPM Work Phone: [facility] Start: 12-29-2024 End: 12-29-2024 Bamboo flowsheet Jonathon Dahl DPM Work Phone: [facility] Start: 12-27-2024 End: 12-27-2024 Orders Only Bo Michelle CYTOGENETIC TECHNOLOGIST-CIGARETTE CARTON SEALER Work Phone: [facility] Start: 12-13-2024 End: 12-13-2024 Bamboo flowsheet Jonathon Dahl DPM Work Phone: [facility] Start: 12-13-2024 End: 12-13-2024 Bamboo flowsheet Jonathon Dahl DPM Work Phone: [facility] Start: 12-13-2024 End: 12-13-2024 Office outpatient visit 15 minutes Jonathon Dahl DPM Work Phone: [facility] Comment on above: Plantar wart, left f oot (Primary Dx); Acquired keratoderma; Left foot pain; Difficulty walking Start: 12-13-2024 End: 12-13-2024 ambulatory JONATHON DAHL Not Available Start: 11-24-2024 End: 11-24-2024 Patient encounter procedure Jonathon Dahl DPM Work Phone: [facility] Comment on above: Onychomycosis (Prima ry Dx); Onychodystrophy; Pain around toenail, right foot; Pain around toenail, left foot Start: 11-24-2024 End: 11-24-2024 ambulatory JONATHON DAHL Not Available Start: 11-24-2024 End: 11-24-2024 Bamboo flowsheet Jonathon Dahl DPM Work Phone: [facility] Start: 11-24-2024 End: 11-24-2024 Bamboo flowsheet Jonathon Dahl DPM Work Phone: [facility] Start: 11-08-2024 End: 11-11-2024 Telephone encounter Megan Blank MD Work Phone: [facility] Start: 10-21-2024 End: 10-21-2024 Patient encounter procedure Megan Blank MD Work Phone: [facility] Comment on above: Routine general medi adrian examination at a health care facility (Primary Dx); Essential hypertension; Pure hypercholesterolemia; Lymphedema of both lower extremities; BMI 45.0-49.9, adult ([facility] Start: 10-21-2024 End: 10-21-2024 Patient encounter status Megan Blank MD Work Phone: [facility] Work Phone: Start: 10-21-2024 End: 10-21-2024 ambulatory [facility] Start: 10-21-2024 Encounter for genera l adult medical examination without abnormal findings [facility] Start: 10-08-2024 End: 10-08-2024 Refill Ev Headley [facility] Start: 10-07-2024 End: 10-07-2024 Office outpatient visit 15 minutes Cesar Valle MD Work Phone: [facility] Comment on above: Lymphedema of both l ower extremities (Primary Dx) Start: 10-07-2024 End: 10-07-2024 ambulatory CESAR VALLE [facility] Start: 09-28-2024 End: 09-28-2024 Office outpatient visit 15 minutes Megan Blank MD Work Phone: [facility] Comment on above: Cellulitis of right lower leg (Primary Dx); Lymphedema of both lower extremities Start: 09-28-2024 End: 09-28-2024 ambulatory [facility] Start: 08-12-2024 End: 08-12-2024 ambulatory JONATHON DAHL Not Available Start: 08-12-2024 End: 08-12-2024 Patient encounter procedure Jonathon Dahl DP Work Phone: [facility] Comment on above: Onychomycosis (Prima ry Dx); Onychodystrophy; Pain around toenail, right foot; Pain around toenail, left foot Start: 08-09-2024 End: 08-09-2024 Office outpatient visit 25 minutes Megan Blank MD Work Phone: [facility] Comment on above: Cellulitis of right lower leg (Primary Dx); Chronic bronchitis, unspecified chronic bronchitis type ([facility]); Essential hypertension; Pure hypercholesterolemia; Asthenia Start: 08-09-2024 End: 08-09-2024 ambulatory [facility] Start: 08-06-2024 End: 08-06-2024 Telephone encounter Asia Olson LPN [facility] Start: 07-30-2024 End: 08-03-2024 Emergency department patient visit [facility] Start: 07-30-2024 End: 08-02-2024 Evaluation and management of inpatient [facility] Start: 07-30-2024 End: 07-30-2024 Office outpatient visit 15 minutes Megan Blank MD Work Phone: [facility] Comment on above: Cellulitis of right lower extremity (Primary Dx); Lymphedema of both lower extremities Start: 07-30-2024 End: 07-30-2024 ambulatory [facility] Start: 07-30-2024 End: 08-03-2024 Emergency department patient visit [facility] Start: 07-27-2024 End: 07-27-2024 Telephone encounter Megan Blank MD Work Phone: [facility] Start: 07-27-2024 End: 07-27-2024 Emergency department patient visit [facility] Start: 07-14-2024 End: 07-18-2024 ambulatory JO STONE [facility] Start: 07-02-2024 End: 07-02-2024 ambulatory [facility] Comment on above: Cellulitis of right lower extremity (Primary Dx) Start: 06-29-2024 End: 06-29-2024 Telephone encounter Antoinette Gu RN [facility] Comment on above: Care Navigation Start: 06-28-2024 End: 07-18-[address] [facility] Start: 06-25-2024 End: 06-25-2024 Office outpatient new 20 minutes Jo Stone CYTOGENETIC TECHNOLOGIST-CIGARETTE CARTON SEALER Work Phone: [facility] Comment on above: Blister of right low er extremity without infection, initial encounter (Primary Dx); Cellulitis of right lower extremity; Lymphedema of both lower extremities Start: 06-25-2024 End: 06-25-2024 ambulatory JO STONE [facility] Start: 06-25-2024 End: 06-25-2024 Office outpatient visit 15 minutes Megan Blank MD Work Phone: [facility] Comment on above: Lymphedema of both l ower extremities (Primary Dx); Essential hypertension; Cellulitis of right lower extremity Start: 06-24-2024 End: 06-24-2024 Office outpatient new 45 minutes Cesar Valle MD Work Phone: [facility] Comment on above: Lymphangitis (Primar y Dx); Lymphedema of both lower extremities Start: 06-17-2024 End: 07-18-2024 ambulatory MEGAN BLANK [facility] Start: 06-16-2024 End: 06-16-2024 Telephone encounter Lucia Lemos CMA [facility] Start: 06-15-2024 End: 06-15-2024 Office outpatient visit 25 minutes Megan Blank MD Work Phone: [facility] Comment on above: Lymphedema of both l ower extremities (Primary Dx); Essential hypertension; Pure hypercholesterolemia; Cellulitis of right lower extremity Start: 06-10-2024 End: 06-10-2024 Telephone encounter Adriana Weaver RN Work Phone: [facility] Comment on above: Care Navigation Start: 06-10-2024 End: 06-11-2024 Emergency department patient visit [facility] Start: 06-07-2024 End: 06-17-2024 [facility] Start: 06-04-2024 End: 06-04-2024 Transitional care manage srvc 14 day discharge Megan Blank MD Work Phone: [facility] Comment on above: Essential hypertensi on (Primary Dx); Pure hypercholesterolemia; Lymphedema of both lower extremities; Cellulitis of right lower extremity; S/P total knee arthroplasty, right Start: 06-02-2024 End: 06-02-2024 [facility] Start: 05-31-2024 ambulatory [facility] Start: 05-28-2024 End: 05-28-2024 Telephone encounter Jessica Plasencia RN [facility] Comment on above: Transition Of Care Start: 05-25-2024 End: 05-28-2024 Emergency department patient visit [facility] Start: 05-25-2024 End: 05-27-2024 Evaluation and management of inpatient [facility] Start: 05-24-2024 End: 05-24-2024 ambulatory [facility] Start: 05-18-2024 End: 05-18-2024 Telephone encounter Asia Ni [facility] Start: 05-12-2024 Evaluation and manag ement of inpatient [facility] Start: 05-12-2024 End: 05-13-2024 Evaluation and management of inpatient [facility] Start: 05-10-2024 End: 05-10-2024 [facility] Start: 05-04-2024 End: 05-04-2024 ambulatory [facility] Start: 04-20-2024 End: 04-21-2024 Telephone encounter Megan Blank MD Work Phone: [facility] Start: 04-19-2024 End: 04-19-2024 ambulatory [facility] Start: 03-11-2024 End: 03-11-2024 Office outpatient visit 15 minutes Megan Blank MD Work Phone: [facility] Comment on above: Chronic pain of righ t knee (Primary Dx); Pain of right lower extremity; Lymphedema of both lower extremities; Arthritis of left sacroiliac joint Start: 02-19-2024 Refill [facility] Start: 01-26-2024 End: 01-26-2024 Office outpatient visit 25 minutes Megan Blank MD Work Phone: [facility] Comment on above: Lymphedema of both l ower extremities (Primary Dx); Localized edema; Dyspnea on exertion Start: 01-16-2024 Refill [facility] Comment on above: Lymphedema of both l ower extremities Start: 04-27-2020 End: 04-28-2020 Patient encounter procedure [facility] Start: 04-27-2020 End: 04-27-2020 Subsequent hospital visit [facility] Comment on above: Arrived Start: 03-28-2020 End: 03-29-2020 Patient encounter procedure [facility] Start: 03-28-2020 End: 03-28-2020 Subsequent hospital visit by physician Elsa [facility] Comment on above: Arrived Start: 01-24-2020 End: 01-24-2020 Subsequent hospital visit by physician [facility] Start: 01-21-2020 End: 01-22-2020 Patient encounter procedure [facility] Start: 01-21-2020 End: 01-21-2020 Subsequent hospital visit by physician [facility] Comment on above: Arrived Start: 01-18-2020 End: 01-18-2020 Subsequent hospital visit by physician Elsa [facility] Start: 01-14-2020 End: 01-15-2020 Patient encounter procedure [facility] Start: 01-14-2020 End: 01-14-2020 Subsequent hospital visit by physician [facility]elda [facility] Comment on above: Arrived Start: 01-11-2020 End: 01-12-2020 Patient encounter procedure [facility] Start: 01-11-2020 End: 01-11-2020 Subsequent hospital visit by physician [facility]el[facility] Comment on above: Arrived Start: 01-07-2020 End: 01-08-2020 Patient encounter procedure [facility] Start: 01-07-2020 End: 01-07-2020 Subsequent hospital visit by physician [facility]el[facility] Comment on above: Arrived Start: 01-04-2020 End: 01-05-2020 Patient encounter procedure [facility] Start: 01-04-2020 End: 01-04-2020 Subsequent hospital visit by physician [facility]el[facility] Comment on above: Arrived Start: 12-31-2019 End: 01-01-2020 Patient encounter procedure [facility] Start: 12-31-2019 End: 12-31-2019 Subsequent hospital visit by physician Elsa [facility] Comment on above: Arrived Start: 12-28-2019 End: 12-29-2019 Patient encounter procedure [facility] Start: 12-28-2019 End: 12-28-2019 Subsequent hospital visit by physician [facility]elda [facility] Comment on above: Arrived Start: 12-24-2019 End: 12-24-2019 Subsequent hospital visit by physician [facility]el[facility] Start: 12-21-2019 End: 12-22-2019 Patient encounter procedure [facility] Start: 12-21-2019 End: 12-21-2019 Subsequent hospital visit by physician [facility]elda [facility] Comment on above: Arrived Start: 12-14-2019 End: 12-15-2019 Patient encounter procedure [facility] Start: 12-14-2019 End: 12-14-2019 Subsequent hospital visit by physician Nelda Saucedo PT [facility] Comment on above: Arrived Start: 12-10-2019 End: 12-11-2019 Patient encounter procedure [facility] Start: 12-10-2019 End: 12-10-2019 Subsequent hospital visit by physician Nelda Saucedo [facility] Comment on above: Arrived Procedures Date Procedure Procedure Detail Performing Clinician Start: 08-19-2025 Adult depression scr eening assessment Justino Gaspar MD Work Phone: Start: 07-25-2025 Adult depression scr eening assessment Justino Gaspar MD Work Phone: Start: 07-11-2025 Adult depression scr eening assessment Bo Michelle CYTOGENETIC TECHNOLOGIST-CIGARETTE CARTON SEALER Work Phone: Start: 02-21-2025 Adult depression scr eening assessment Bo Michelle CYTOGENETIC TECHNOLOGIST-CIGARETTE CARTON SEALER Work Phone: Start: 10-21-2024 Adult depression scr eening assessment Megan Blank MD Work Phone: Start: 09-28-2024 Adult depression scr eening assessment Megan Blank MD Work Phone: Start: 08-09-2024 Adult depression scr eening assessment Megan Blank MD Work Phone: Start: 07-30-2024 Follow-up visit Follow-up MEGAN BLANK Start: 07-30-2024 Adult depression scr eening assessment Megan Blank MD Work Phone: Start: 07-02-2024 NURSING COMMUNICATION Taj Stone CYTOGENETIC TECHNOLOGIST-CIGARETTE CARTON SEALER Work Phone: Start: 06-25-2024 Adult depression scr [...] Adult depression scr eening assessment Ev Headley [facility] Start: 01-06-2023 Colonoscopy 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 Plan of Treatment Date Care Activity Detail Author Start: 01-06-2033 Screening for malignant neoplasm of colon [facility] Start: 02-08-2029 DTaP,Tdap and Td Vaccines (2 - Td or Tdap) DTaP,Tdap and Td Vaccines (2 - Td or Tdap) [facility] Start: 02-08-2029 DTaP/Tdap/Td vaccine (2 - Td) DTaP/Tdap/Td vaccine (2 - Td) [facility] Work Phone: Start: 01-06-2028 Screening for malignant neoplasm of colon Colonoscopy [facility] Start: 07-25-2026 Adult BMI Follow Up Plan Adult BMI Follow Up Plan [facility] Start: 07-25-2026 Adult BMI Screening Adult BMI Screen ing [facility] Start: 07-25-2026 Depression Screening Depression Scre ening [facility] Start: 07-25-2026 Tobacco Screening Tobacco Screening [facility] Start: 07-11-2026 Adult BMI Screening Adult BMI Screen ing [facility] Start: 07-11-2026 Depression Screening Depression Scre ening [facility] Start: 07-11-2026 Tobacco Screening Tobacco Screening [facility] Start: 03-09-2026 Adult BMI Follow Up Plan Adult BMI Follow Up Plan [facility] Start: 03-09-2026 Adult BMI Screening Adult BMI Screen ing [facility] Start: 03-09-2026 Tobacco Screening Tobacco Screening [facility] Start: 02-28-2026 Adult BMI Screening Adult BMI Screen ing [facility] Start: 02-21-2026 Adult BMI Follow Up Plan Adult BMI Follow Up Plan [facility] Start: 02-21-2026 Adult BMI Screening Adult BMI Screen ing [facility] Start: 02-21-2026 Depression Screening Depression Scre ening [facility] Start: 02-21-2026 Tobacco Screening Tobacco Screening [facility] Start: 10-24-2025 End: 10-24-2025 Patient encounter procedure [facility] Start: 10-21-2025 Adult BMI Screening Adult BMI Screen ing [facility] Start: 10-21-2025 Depression Screening Depression Scre ening [facility] Start: 10-21-2025 Fall Risk Screening Fall Risk Screen ing [facility] Start: 10-21-2025 Medicare Annual Wellness Visit Medicare Annual Wellness Visit [facility] Start: 10-21-2025 Tobacco Screening Tobacco Screening [facility] Start: 10-07-2025 Adult BMI Screening Adult BMI Screen ing [facility] Start: 10-07-2025 Tobacco Screening Tobacco Screening [facility] Start: 09-28-2025 Adult BMI Screening Adult BMI Screen ing [facility] Start: 09-28-2025 Depression Screening Depression Scre ening [facility] Start: 09-28-2025 Fall Risk Screening Fall Risk Screen ing [facility] Start: 09-28-2025 Tobacco Screening Tobacco Screening [facility] Start: 09-19-2025 End: 09-19-2025 Patient encounter procedure 09/19/2025 9:30 AM EST Procedure Visit [facility] [address] [place] [address] Jonathon Dahl DPM [address] [place] [id number] [facility] Start: 09-13-2025 End: 09-13-2025 Patient encounter procedure 09/13/2025 11:30 AM EDT Office Visit [facility] [address] [place] [phone] Guerda Aggarwal MD [address] [id number] [place], [place] [id number] [facility] Start: 08-24-2025 End: 08-24-2025 Patient encounter procedure 08/24/2025 1:45 PM EDT Office Visit [facility] [address] [place] [address] Jonathon Dahl, DPM [address] [place], [place] [id number] [facility] Start: 08-19-2025 End: 08-19-2025 Patient encounter procedure 08/19/2025 10:30 AM EDT Office Visit [facility] [address] [place] [phone] Justino Gaspar MD [address] [place], [place] [id number] [facility] Start: 08-09-2025 Adult BMI Screening Adult BMI Screen ing [facility] Start: 08-09-2025 Depression Screening Depression Scre ening [facility] Start: 08-09-2025 Fall Risk Screening Fall Risk Screen ing [facility] Start: 08-09-2025 Tobacco Screening Tobacco Screening [facility] Start: 08-01-2025 Adult BMI Screening Adult BMI Screen ing [facility] Start: 07-30-2025 Depression Screening Depression Scre ening [facility] Start: 07-30-2025 Fall Risk Screening Fall Risk Screen ing [facility] Start: 07-30-2025 Tobacco Screening Tobacco Screening [facility] Start: 07-27-2025 Adult BMI Screening Adult BMI Screen ing [facility] Start: 07-27-2025 Tobacco Screening Tobacco Screening [facility] Start: 07-25-2025 End: 07-11-2026 Basic metabolic 2000 panel - Serum or Plasma Basic Metabolic Panel Lab Routine Lymphedema of both lower extremities Cellulitis of right lower leg Cellulitis of left lower leg Expected: 07/25/2025 (Approximate), Expires: 07/11/2026 [employer] Work Phone: Comment on above: Expected: 07/25/2025 (Approximate), Expires: 07/11/2026 Start: 07-25-2025 End: 07-25-2025 Patient encounter procedure 07/25/2025 10:15 AM EDT Office Visit [facility] [address] [place], [place] [address] [phone] Justino Gaspar MD [address] [facility] [place], [place] [phone] [facility] Start: 07-18-2025 COVID-19 Vaccine ( season) COVID-19 Vaccine () [facility] Start: 07-18-2025 Influenza vaccination [facility] Start: 07-11-2025 End: 07-11-2025 Patient encounter procedure [facility] Comment on above: Arrived Start: 06-25-2025 Adult BMI Screening Adult BMI Screen ing [facility] Start: 06-25-2025 Depression Screening Depression Scre [facility] Start: 06-25-2025 Fall Risk Screening Fall Risk Screen ing [facility] Start: 06-25-2025 Tobacco Screening Tobacco Screening [facility] Start: 06-24-2025 Adult BMI Screening Adult BMI Screen ing [facility] Start: 06-24-2025 Tobacco Screening Tobacco Screening [facility] Start: 06-16-2025 End: 06-16-2025 Patient encounter procedure 06/16/2025 2:15 PM EDT Office Visit [facility] [address] [place] [phone] Jonathon Dahl DPM [address] [place], [place] [id number] Arrived [facility] Comment on above: Arrived Start: 06-15-2025 Adult BMI Screening Adult BMI Screen ing [facility] Start: 06-15-2025 Depression Screening Depression Scre [facility] Start: 06-15-2025 Fall Risk Screening Fall Risk Screen ing [facility] Start: 06-15-2025 Tobacco Screening Tobacco Screening [facility] Start: 06-04-2025 Adult BMI Screening Adult BMI Screen ing [facility] Start: 06-04-2025 Depression Screening Depression Scre ening [facility] Start: 06-04-2025 Fall Risk Screening Fall Risk Screen ing [facility] Start: 06-04-2025 Tobacco Screening Tobacco Screening [facility] Start: 05-26-2025 End: 05-26-2025 Patient encounter procedure 05/26/2025 2:15 PM EDT Procedure Visit [facility] [address] [place] [phone] Jonathon Dahl, [place] [address] [place] [address] [facility] Start: 05-26-2025 Adult BMI Screening Adult BMI Screen ing [facility] Start: 05-25-2025 Tobacco Screening Tobacco Screening [facility] Start: 04-06-2025 End: 04-06-2025 Patient encounter procedure 04/06/2025 8:30 AM EDT Office Visit [facility] [address] [place] [phone] Jonathon Dahl, [place] [address] [place] [address] Arrived [facility] Comment on above: Arrived Start: 03-14-2025 End: 03-14-2026 Echo complete W/Strain Imaging Echo complete W/Strain Imaging Echocardiography Routine Nonrheumatic aortic valve stenosis Expected: 03/14/2025, Expires: 03/14/2026 [facility] Work Phone: Comment on above: Expected: 03/14/2025 , Expires: 03/14/2026 Start: 03-11-2025 Adult BMI Screening Adult BMI Screen ing [facility] Start: 03-11-2025 Depression Screening Depression Scre ening [facility] Start: 03-11-2025 Fall Risk Screening Fall Risk Screen ing [facility] Start: 03-11-2025 Tobacco Screening Tobacco Screening [facility] Start: 03-09-2025 End: 03-09-2025 Patient encounter procedure 03/09/2025 2:30 PM EDT Office Visit [facility] [address] [place] [phone] Bo Michelle APRN-CIGARETTE CARTON SEALER [address] [place] [address] [facility] Start: 03-08-2025 End: 03-08-2025 Patient encounter procedure 03/08/2025 11:00 AM EDT Office Visit [facility] [address] [place] [phone] Guerda Aggarwal MD [address] [address] [facility] Start: 02-28-2025 End: 02-28-2025 Patient encounter procedure 02/28/2025 3:30 PM EDT Office Visit [facility] [address] [place] [phone] Bo Michelle APRN-CIGARETTE CARTON SEALER [address] [place] [address] [facility] Start: 02-27-2025 COVID-19 Vaccine ( season) COVID-19 Vaccine () [facility] Start: 02-24-2025 End: 02-24-2025 Patient encounter procedure [facility] Comment on above: Arrived Start: 02-21-2025 End: 02-21-2025 Patient encounter procedure 02/21/2025 2:45 PM EDT Office Visit [facility] [address] [place] [phone] Bo Michelle APRN-CIGARETTE CARTON SEALER [address] [place] [address] [facility] Start: 01-26-2025 End: 01-26-2025 Patient encounter procedure [facility] Comment on above: Arrived Start: 01-25-2025 Adult BMI Screening Adult BMI Screen ing [facility] Start: 01-25-2025 Depression Screening Depression Scre ening [facility] Start: 01-25-2025 Fall Risk Screening Fall Risk Screen ing [facility] Start: 01-25-2025 Tobacco Screening Tobacco Screening [facility] Start: 12-29-2024 End: 12-29-2024 Patient encounter procedure [facility] Comment on above: Arrived Start: 12-13-2024 End: 12-13-2024 Patient encounter procedure 12/13/2024 1:00 PM EST Office Visit [facility] [address] [place] [phone] Jonathon Dahl DPTaj [address] [place], [place] [phone] Arrived [facility] Comment on above: Arrived Start: 11-24-2024 End: 11-24-2024 Patient encounter procedure [facility] Comment on above: Arrived Start: 10-22-2024 Tobacco Screening Tobacco Screening [facility] Start: 10-21-2024 End: 10-21-2024 Patient encounter procedure 10/21/2024 2:45 PM EST Office Visit [facility] [address] [place] [phone] Megan Blank MD [address] [facility], [place] [phone] [facility] Start: 10-21-2024 Adult BMI Screening Adult BMI Screen ing [facility] Start: 10-07-2024 End: 10-07-2024 Patient encounter procedure 10/07/2024 2:30 PM EST Office Visit [facility] [place] [address] Cesar Valle MD [address], [address] [address] [facility] [place] Start: 09-30-2024 End: 09-30-2024 Patient encounter procedure 09/30/2024 10:00 AM EST Office Visit [facility] [address] [place] [phone] Megan Blank MD [address], [place] [phone] [facility] Start: 09-29-2024 Depression Screening Depression Scre ening [facility] Start: 09-29-2024 Fall Risk Screening Fall Risk Screen ing [facility] Start: 09-29-2024 Medicare Annual Wellness Visit Medicare Annual Wellness Visit [facility] Start: 07-18-2024 COVID-19 Vaccine ( season) COVID-19 Vaccine () [facility] Start: 07-18-2024 Influenza vaccination [facility] Start: 07-14-2024 End: 07-14-2024 Patient encounter procedure 07/14/2024 1:00 PM EDT Office Visit [facility] W[facility] [address] [place] [phone] Jo Stone, CYTOGENETIC TECHNOLOGIST-[facility] [address] [place] [address] [facility] Start: 07-02-2024 End: 07-02-2024 ambulatory 07/02/2024 1:30 PM EDT Support Visit [facility] [address] [place] [phone] [facility] Start: 06-25-2024 End: 06-25-2024 Patient encounter procedure 06/25/2024 9:45 AM EDT Office Visit [facility] [address] [place] [address] Megan Blank MD [address] [place] [address] [facility] Start: 06-24-2024 End: 06-24-2024 Patient encounter procedure 06/24/2024 11:10 AM EDT Office Visit Belinda Colvin [facility] [address] [place] [phone] Cesar Valle MD [address], [address] [address] [facility] Start: 06-17-2024 End: 06-17-2024 Patient encounter procedure 06/17/2024 6:30 AM EDT Appointment [facility] [address] [place] [phone] [facility] Start: 06-11-2024 End: 06-11-2024 Patient encounter procedure 06/11/2024 9:15 AM EDT Appointment [facility] [address] [place] [phone] S/P total knee arthroplasty, right [facility] Comment on above: S/P total knee arthr oplasty, right Start: 06-04-2024 End: 06-04-2024 Patient encounter procedure 06/04/2024 9:45 AM EDT Office Visit [facility] [address] [place] [phone] Megan Blank MD [address] [place] [address] [facility] [address] [facility] Start: 03-29-2024 End: 03-29-2024 Patient encounter procedure 03/29/2024 9:00 AM EDT Office Visit [facility] [address] [place] [phone] Megan Blank MD [address] [place] [address] [facility] Start: 03-12-2024 End: 03-12-2024 Patient encounter procedure [facility] Start: 03-11-2024 End: 03-11-2025 XR Foot - right 3 Views X-ray foot right minimum 3 views Imaging Routine Pain of right lower extremity Expected: 03/11/2024, Expires: 03/11/2025 [employer] Comment on above: Expected: 03/11/2024 , Expires: 03/11/2025 Start: 03-11-2024 End: 03-11-2025 XR Knee - right 3 Views X-ray knee right 3 views Imaging Routine Chronic pain of right knee Pain of right lower extremity Expected: 03/11/2024, Expires: 03/11/2025 [employer] Work Phone: Comment on above: Expected: 03/11/2024 , Expires: 03/11/2025 Start: 03-11-2024 End: 03-11-2025 XR Pelvis 1 or 2 Views X-ray pelvis 1 or 2 views Imaging Routine Arthritis of left sacroiliac joint Expected: 03/11/2024, Expires: 03/11/2025 [employer] Comment on above: Expected: 03/11/2024 , Expires: 03/11/2025 Start: 02-23-2024 End: 02-23-2024 Patient encounter procedure [facility] Start: 01-26-2024 End: 01-25-2025 Echo complete W/O contrast Echo complete W/O contrast Echocardiography Routine Dyspnea on exertion Expected: 01/26/2024, Expires: 01/25/2025 [employer] Comment on above: Expected: 01/26/2024 , Expires: 01/25/2025 Start: 01-26-2024 End: 01-25-2025 US.doppler Lower extremity vein - bilateral Vas venous duplex lwr bilateral Vascular Ultrasound Routine Lymphedema of both lower extremities Localized edema Expected: 01/26/2024, Expires: 01/25/2025 [employer] Work Phone: Comment on above: Expected: 01/26/2024 , Expires: 01/25/2025 Start: 01-02-2024 COVID-19 Vaccine ( season) COVID-19 Vaccine ( season) [facility] [employer] [facility] Start: 01-29-2023 Adult BMI Follow Up Plan Adult BMI Follow Up Plan [facility] Start: 07-18-2020 Influenza vaccination Flu vaccine (S mitzi Ended) [facility] [place] Start: 02-11-2020 End: 02-11-2020 Appointment 02/11/2020 Appointment [...] 01/18/2020 Appointment Physical Therapy Elsa Rodriguez PTA [facility] Start: 01-14-2020 End: 01-14-2020 Appointment 01/14/2020 Appointment Physical Therapy Nelda Saucedo PT [facility] Start: 01-11-2020 End: 01-11-2020 Appointment 01/11/2020 Appointment Physical Therapy Nelda Saucedo PT [facility] Start: 01-07-2020 End: 01-07-2020 Appointment 01/07/2020 Appointment Physical Therapy Nelda Saucedo PT [facility] Start: 01-04-2020 End: 01-04-2020 Hospital Encounter [facility] Start: 12-31-2019 End: 12-31-2019 Appointment 12/31/2019 [facility]ointment Physical [facility] Start: 12-28-2019 End: 12-28-2019 Appointment 12/28/2019 Appointment Physical Therapy [facility] Start: 12-24-2019 End: 12-24-2019 Appointment 12/24/2019 Appointment Physical [facility]el[facility] Start: 12-21-2019 End: 12-21-2019 Patient encounter procedure 12/21/2019 Appointment Physical [facility] Start: 12-14-2019 End: 12-14-2019 Patient encounter procedure 12/14/2019 Appointment Physical Therapy Nelda Saucedo, JM [facility] Start: 12-09-2019 Annual Wellness Visi t (AWV) Annual Wellness Visit (AWV) [employer] Phone: Start: 07-18-2019 Influenza vaccination Flu vaccine (# 1) [employer] Phone: Start: 2017 Pneumococcal 65+ yea rs Vaccine (1 of 1 - PPSV23) Pneumococcal 65+ years Vaccine (1 of 1 - PPSV23) [employer] Phone: Start: 2002 Colon cancer screen colonoscopy Colon cancer screen colonoscopy [employer] Phone: Start: 2002 Screening for malignant neoplasm of colon Colon cancer screen [facility] [place] Start: 2002 Shingles Vaccine (1 of 2) Shingles Vaccine (1 of 2) [employer] Phone: Start: 1992 Lipid panel Lipid screen [facility] [place] [place] Start: 1992 Lipid screen Lipid screen [facility] Work Phone: Start: 1970 Adult BMI Follow Up Plan Adult BMI Follow Up Plan [facility] Start: 1963 DTaP/Tdap/Td vaccine (1 - Tdap) DTaP/Tdap/Td vaccine (1 - Tdap) [facility] [employer] Work Phone: Start: 1952 Hepatitis C screen Hepatitis C gordo hunter [facility] [employer] Work Phone: Start: 1952 Hepatitis C screening Hepatitis C sc reen [facility] [place], [place] Start: 1952 Screening for malignant neoplasm of colon [facility] End: 03-08-2026 CBC W Auto Differential panel - Blood CBC auto differential Lab Routine Iron deficiency anemia, unspecified iron deficiency anemia type 1 Occurrences starting 03/08/2025 until 03/08/2026 [facility] Comment on above: 1 Occurrences starti ng 03/08/2025 until 03/08/2026 End: 03-08-2026 Ferritin [Mass/volume] in Serum or Plasma Ferritin Lab Routine Iron deficiency anemia, unspecified iron deficiency anemia type 1 Occurrences starting 03/08/2025 until 03/08/2026 [employer] Work Phone: Comment on above: 1 Occurrences starti ng 03/08/2025 until 03/08/2026 End: 03-08-2026 Iron and TIBC Iron and TIBC Lab Routine Iron deficiency anemia, unspecified iron deficiency anemia type 1 Occurrences starting 03/08/2025 until 03/08/2026 [facility] [employer] Comment on above: 1 Occurrences starti ng 03/08/2025 until 03/08/2026 Immunizations Immunization Date Immunization Notes Care Provider [facility] 08-29-2024 Covid-19, Mrna, Lnp- s, Pf,jair-sucrose,30 Mcg/0.3ml Megan Blank MD Work Phone: [facility] 08-29-2024 influenza, high dose seasonal, preservative-free Megan Blank MD Work Phone: [facility] 08-29-2024 influenza virus vacc ine, unspecified formulation Jonathon Dahl DPM Work Phone: [facility] 09-01-2023 Covid-19, Mrna, Lnp- s, Pf,jair-sucrose,30 Mcg/0.3ml Fall23 Megan Blank MD Work Phone: [facility] 09-01-2023 Influenza, High-dose , Quadrivalent Megan Blank MD Work Phone: [facility] 09-01-2023 RSV, bivalent, prote in subunit RSVpreF, diluent reconstituted, 0.5 mL, PF Megan Blank MD Work Phone: [facility] 09-01-2023 influenza virus vacc ine, unspecified formulation Asia Olson [facility] 07-05-2023 zoster vaccine recombinant Ev Headley [facility] 04-29-2023 Covid-19, Mrna, Lnp- s, Bivalent, Pf, 10 Mcg/0.2 Ml Ev Headley [facility] 04-29-2023 Covid-19, Mrna, Lnp- s, Bivalent, Pf, 30mcg/0.3 ml Ev Headley [facility] 04-29-2023 Moderna Bivalent Newsome ster Vaccination Jonathon Dahl DPM Work Phone: [facility] 04-29-2023 Moderna SARS-CoV-2 50mcg/0.5mL Booster Jonathon Dahl DPM Work Phone: [facility] 04-29-2023 zoster vaccine recombinant Ev Headley [facility] 08-07-2022 Influenza, High-dose , Quadrivalent Ev Headley [facility] 08-01-2021 Influenza, High-dose , Quadrivalent Ev Headley [facility] 01-27-2021 COVID-19, mRNA, LNP- S, PF, 30mcg/0.3mL Dose Ev Headley [facility] 01-06-2021 COVID-19, mRNA, LNP- S, PF, 30mcg/0.3mL Dose Ev Headley [facility] 08-18-2020 Influenza Vaccine, Quadrivalent, Adjuvanted Ev Headley [facility] 11-25-2019 influenza virus vacc ine, unspecified formulation Ev Headley [facility] 11-08-2019 zoster vaccine recombinant Ev Headley [facility] 09-15-2019 pneumococcal polysaccharide vaccine, 23 valent Ev Headley [facility] 09-13-2019 influenza virus vacc ine, unspecified formulation Ev Headley [facility] 02-08-2019 tetanus toxoid, redu tea diphtheria toxoid, and acellular pertussis vaccine, adsorbed Ev Headley [facility] 08-08-2018 influenza, injectabl e, quadrivalent, preservative free Ev Headley [facility] 08-08-2018 pneumococcal conjuga te vaccine, 13 valent Ev Headley [facility] 09-29-2017 influenza virus vacc ine, unspecified formulation Ev Headley [facility] 09-06-2010 pneumococcal polysaccharide vaccine, 23 valent Ev Headley [facility] Payers Date Payer Category Payer Medicare [id number] 2023 Medicare (Managed Care) [id number] 2023 Medicare HMO [id number] [id number]. [id number] 2023 Medicare [id number] 2021 Medicare [id number]. 1.13.693.2. [id number] 2014 Medicare MEDICARE MEDICAR E PART A AND B xxxxxxxxxxx 2014-Present [phone] [address] [address] [place] [address] xxxxxxxxxxx [id number]. [id number] 2014 Medicare [id number] 2014 Unknown [employer] M [employer]ICAL [employer]UAL [address] xxxxxxxxxxxx 2014-Present [phone] [address] [place] [address] xxxxxxxxxxxx 1.2.840.195684.1.13.239.2. 7.3.586507.315 2014 Unknown [id number] 1952 Unknown [id number] 2.16.840.1.487362.3.579.2. 173 1952 Unknown [id number] 2.16.840.1.178954.3.579.2. 173 1952 Unknown [id number] 2.16.840.1.258528.3.579.2. 173 1952 Unknown [id number] 2.16.840.1.041251.3.579.2. 173 1952 Unknown [id number] 2.16.840.1.654985.3.579.2. 173 1952 Unknown [id number] 2.16.840.1.469963.3.579.2. 173 1952 Unknown [id number] 2.16.840.1.632940.3.579.2. 173 1952 Unknown [id number] 2.16.840.1.799494.3.579.2. 173 1952 Unknown [id number] 2.16.840.1.148701.3.579.2. 173 1952 Unknown [id number] 2.16.840.1.474461.3.579.2. 173 1952 Unknown [id number] 2.16.840.1.540784.3.579.2. 173 1952 Unknown [id number] 2.16.840.1.151749.3.579.2. 173 1952 Unknown [id number] 2.16.840.1.608171.3.579.2. 1286 1952 Unknown [id number] 2.16.840.1.433708.3.579.2. 1286 1952 Unknown [id number] 2.16.840.1.103739.3.579.2. 1285 1952 Unknown [id number] 2..840.1.920221.3.579.2. 1285 1952 Unknown [id number] 2.16.840.1.391779.3.579.2. 1285 1952 Unknown [id number] 2..840.1.594779.3.579.2. 1285 1952 Unknown [id number] 2..840.1.211221.3.579.2. 1285 1952 Unknown [id number] 2.840.1.480729.3.579.2. 1285 1952 Unknown [id number] 2.840.1.851948.3.579.2. 1285 1952 Unknown [id number] 2.840.1.925123.3.579.2. 1285 1952 Unknown [id number] 2.840.1.042066.3.579.2. 1285 1952 Unknown [id number] 2.840.1.377037.3.579.2. 1285 1952 Unknown [id number] 2.840.1.131164.3.579.2. 1285 1952 Unknown [id number] 2.840.1.958650.3.579.2. 1285 1952 Unknown [id number] 2.840.1.462493.3.579.2. 1285 1952 Unknown [id number] 2..840.1.409589.3.579.2. 1285 1952 Unknown [id number] 2..840.1.857220.3.579.2. 1285 1952 Unknown [id number] 2..840.1.215935.3.579.2. 1285 1952 Unknown [id number] 2..840.1.295344.3.579.2. 1285 1952 Unknown [id number] 2..840.1.791514.3.579.2. 1285 1952 Unknown [id number] 2..840.1.186020.3.579.2. 1285 1952 Unknown [id number] 2..840.1.480041.3.579.2. 1285 1952 Unknown [id number] 2.840.1.906789.3.579.2. 1285 1952 Unknown [id number] .840.1.995717.3.579.2. 1285 1952 Unknown [id number] .840.1.397761.3.579.2. 1285 1952 Unknown [id number] .840.1.799222.3.579.2. 1285 1952 Unknown [id number] 840.1.988051.3.579.2. 1285 1952 Unknown [id number] .840.1.228928.3.579.2. 1285 1952 Unknown [id number] .840.1.272743.3.579.2. 1285 1952 Unknown [id number] .840.1.566588.3.579.2. 1285 1952 Unknown [id number] .840.1.470366.3.579.2. 1285 1952 Unknown [id number] 2.840.1.690572.3.579.2. 1258 1952 Unknown [id number] 2.840.1.232531.3.579.2. 1259 1952 Unknown [id number] 2.16.840.1.157290.3.579.2. 9 1952 Unknown [id number] 2.16.840.1.302765.3.579.2. 9 1952 Unknown [id number] 2.16.840.1.104408.3.579.2. 1258 1952 Unknown [id number] 2.16.840.1.009135.3.579.2. 1258 1952 Unknown [id number] 2.16.840.1.795534.3.579.2. 1258 1952 Unknown [id number] 2.16.840.1.462622.3.579.2. 1258 1952 Unknown [id number] 2.16.840.1.793057.3.579.2. 1258 1952 Unknown [id number] 2.16.840.1.779408.3.579.2. 1259 Social History Date Type Detail Facility Tobacco smoking stat us SCIS Unknown if ever smoked [facility] Phone: Start: 1950 Sex Assigned At Not on file [employer] Phone: Start: 09-09-2022 End: 05-12-2023 Tobacco smoking status NHIS Never smoked tobacco [facility] Start: 09-09-2022 End: 05-12-2023 Tobacco use and exposure Smokeless tobacco non-user [facility] Start: 08-12-2024 End: 08-09-2025 Alcoholic beverage intake Ex-drinker (finding) [facility] Start: 12-28-2020 End: 08-12-2024 History of Social function [facility] Start: 12-28-2020 End: 08-12-2024 Tobacco use panel [facility] Start: 10-21-2024 End: 08-19-2025 Alcoholic beverage intake Current non-drinker of alcohol (finding) [facility] Has the electric, [employer] s, [employer], or water [employer] threatened to shut off services in your home in past 12Mo No [facility] Frequency of Communication with Friends and Family Twice a week [facility] Start: 12-05-2019 Education 14 [facility] Start: 06-22-2015 Sex Male (finding) [facility] Medical Equipment Procedure Code Equipment Code Equipment Origin al Text Equipment Identifier Dates Cmnt Bn Bio 40gm Rpl [id number] - [id number] Start: 07-14-2019 Mesh Pariten Ds [id number] X1 Rpl [id number] Cmt - [id number] Start: 12-15-2019 Cmpt Fem 7 Kn Rt Crcte Rtn Gns - [id number] Start: 07-14-2019 Kn Sn Std Ps Cr Inc Mtn Construct - [id number] Start: 07-14-2019 Oval Harreitt Ii Resurfacing Patellar Component [id number] Start: 07-14-2019 Bsplt Tib 5 Rt K n Gnss Ii Npor - [id number] Start: 07-14-2019 Legion Cr Xlpe H igh Flexion Articular Insert [id number] Start: 07-14-2019 Goals Date Patient Goal Desired [...] of progress towards goal: patient will resume [facility] care for PT/OT Clinical Notes 01-16-2024 to 08-19-2025 Justino Gaspar MD - 08/19/2025 10:30 AM EDTTelephone Encounter - Margot Carreon CMA - 08/15/2025 10:48 AM EDTTelephone Encounter - Margot Carreon CMA - 08/15/2025 10:48 AM EDTPatient Instructions Note Date & Type Note Facility 08-19-2025 History of Present illness Narrative Images from the original note were not included. [address] [place] [address] Patient ID: Royce Arizmendi is a 75 y.o. male. Transition of Care Additional Questions/Concerns Requiring PCP Follow-Up: This documentation is being used for Transition of Care purposes: Yes Goal: Patient will demonstrate a safe transition from hospital to home. Diagnosis on Discharge: Open wound of left foot with complication Cellulitis Failure of outpatient treatment Chronic Lymphedema Discharge Specialty: Infectious Disease Name of Discharging Facility: [facility] Date of Facility Discharge: 06/14/25 Date of Interactive Contact and Name of Sales Appointment Coordinator: Spoke with patient 08/16/25 Medication Review Completed: Yes Medication Reconciliation Questions/Concerns: Augmentin 875 mg twice daily for 10 days Follow Up Appointments with Providers: Primary: JUSTINO GASPAR MD scheduled [facility] 08/19/25 @ 10:30 Specialty: Dr Aggarwal- Pulmonary 09/13/25 @ 11:30 - 6 mo F/U for STE[facility] Specialty: Specialty: Review of Pending Lab/Diagnostic Tests and Plan for Completion: Received IV ATB Ceftriaxone and started on oral Zyvox- but changed to Augmentin due to drug interactions with current regimen Assessment and Support of Treatment Regimen Adherence and Medication Management: Patient has his medications and started the ATB this AM as presribed Patient went to [facility] in past and has 2 layer compression wraps system but can't wear right now because the swelling is so bad. Patient will apply as soon as his swelling goes down enough to get them on. Patient does have GUANAKO wraps and will look for them to put those on for now. No pain at this time- it improved greatly after IV ATB from hospital Right leg skin is sensitive but better than prior Right leg is weeping fluid Leg is pinkish and not nearly as dark as it was, and not as warm to touch Patient is well versed in medications and is taking his Lasix 20 mg twice daily as prescribed No DME needs Family support, drives self and manages his own care Education Provided by [facility] to Support Self-Management, Independent Living and ADLs: Take medications as prescribed Follow up with providers as scheduled Reviewed s/sx of infection Elevate leg as much as possible, use GUANAKO wraps for compression until he can get his other compression wraps on, Remove wrap at night, wash with soap and water, hang dry, and replace on leg in AM, Can place ABD under to collect drainage Patient verbalized understanding -Call PCP for any new or worsening symptoms, call 911 for emergent concerns. Communication with Home Health Agencies and Other Services Utilized/Needed by the Patient: NA SUBJECTIVE: Patient ID: Royce Arizmendi is a 75 y.o. male. Patient was recently admittted for R leg cellulitis. He also had MRSA bacteremia for which he was placed on zyvox. He states that he can not toerlate the pump or wraps due to pain. His legs are very restless since he stopped the pramipexole. His legs hurt if he puts them up while sitting in a recliner. The following portions of the patient's history were reviewed and updated as appropriate: allergies, current medications, past family history, past medical history, past social history, past surgical history and problem list. REVIEW OF SYSTEMS: Review of Systems Constitutional: Negative for chills [...] rash. Neurological: Negative for seizures and syncope. All other systems reviewed and are negative. PHYSICAL EXAMINATION: Vitals: 08/19/25 1029 BP: 118/78 Pulse: 75 Resp: 18 SpO2: 96% Weight: (!) 169.2 kg (373 lb) Physical Exam Constitutional: General: He is not [...] motion. Cervical back: Normal range of motion. Comments: Lymphedema +++ of both legs. A few Superficial ulcers with scabs on the R leg. No redness or tenderness. Lymphadenopathy: Cervical: No cervical adenopathy. Skin: General: Skin is warm and dry. Findings: No rash. Neurological: Mental Status: He is alert. Cranial Nerves: No cranial nerve deficit. Coordination: Coordination normal. Psychiatric: Behavior: Behavior normal. ASSESSMENT/PLAN: Royce was seen today for transition of care. Diagnoses and all orders for this visit: Lymphedema associated with obesity Essential hypertension Chronic bronchitis, unspecified chronic bronchitis type ([facility]) Cellulitis of lower extremity, unspecified laterality Plan: -advised the patient to continue linezolid 600 mg bid -do not take the pramipexole during the course of antibiotics due to risk of serious drug interactions. -OK to resume trazodone. -try using the leg wraps for atleast 1 hour twice a day and also put his legs up intermittently during the day so as to decrease the swelling AND then increase the time as the swelling and pain improves. -Follow up with lymphedema clinic. Follow up: Next scheduled appointment documented in this encounter [facility] 08-15-2025 Miscellaneous Notes Please admit to TCM program. CARLOS [facility] 08/15/25 documented in this encounter [facility] 08-15-2025 Telephone encounter Note Please admit to TCM program. [facility] 08/15/25 [facility] 08-09-2025 History of Present illness Narrative Images from [...] Jonathon Dahl DPM documented in this encounter [facility] 08-09-2025 Instructions Jonathon Dahl DPM - 08/09/2025 1:30 PM EDT As noted documented in this encounter [facility] 07-25-2025 History of Present illness Narrative [address] [facility] [address] Patient: Royce Arizmendi Date of : 1950 Encounter Date: 07/25/2025 [...] 01/06/2023 Performed by Herman Haley DO at [facility] COLONOSCOPY N/A 10/12/2018 Performed by Sumit Mackey MD at [facility] DAVINCI REPAIR HERNIA VENTRAL WITH MESH N/A 12/15/2019 Performed by Ramon Monson DO at [facility] SURGERY EYE SURGERY JOINT REPLACEMENT Left 2009 dr. booth knee REPLACEMENT TOTAL JOINT RIGHT KNEE Right 07/14/2019 Performed by Chico Sutton MD at [facility] REPLACEMENT TOTAL KNEE Right 04/25/2023 SINUS SURGERY [...] JUSTINO GASPAR MD documented in this encounter [facility] 07-11-2025 History of Present illness Narrative Images from the original note were not included. Subjective Patient ID: Royce Arizmendi is a 75 y.o. male who presents for Nail care (Royce Arizmendi is a 75 y.o. male who [...] Jonathon Dahl DPM documented in this encounter [facility] 07-11-2025 Instructions Jonathon Dahl DPM - 07/11/2025 11:00 AM EDT As noted documented in this encounter [facility] 07-11-2025 History of Present illness Narrative Images from the original note were not included. [address] [facility] [address] SUBJECTIVE: Patient ID: Royce Arizmendi is a 75 y.o. male. Patient presents to the office with complaints of lymphedema and redness to bilateral lower legs. Has history of lymphedema to bilateral lower legs. He has not been able to use his compression boots and he has lasix but has not been taking that as well. 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 take care [...] extremities - Ambulatory referral to Lymphedema Clinic (Non-[facility]); Future - Basic Metabolic Panel; Future Cellulitis [...] Chao 07/11/25 0949 documented in this encounter [facility] [employer] [facility] 06-16-2025 History of Present illness Narrative [...] Jonathon Dahl DPM documented in this encounter [facility] 06-16-2025 Instructions Jonathon Dahl DPM - 06/16/2025 2:15 PM EDT As noted documented in this encounter [facility] 04-28-2025 Miscellaneous Notes Patient wants medication sent to a local pharmacy documented in this encounter [facility] 04-28-2025 Telephone encounter Note Patient wants medication sent to a local pharmacy [facility] 04-27-2025 Miscellaneous Notes Please let him [...] from the original note were not included. Dowel Pin Worker spoke with patient about lab results. Let patient know the following from TARUN Aggarwal MD Physician Signed [phone] Please let him know that he remains [...] schedule annual visit. documented in this encounter [facility] 04-27-2025 Telephone encounter Note Please let him know that he remains iron deficient and mildly anemic This can cause RLS symptoms. He told me had been taking oral iron supplements He needs to follow up with his PCP, to determine causes/work up He may benefit from iron infusions/referral to hematology but most appropriate to [facility] 04-27-2025 Telephone encounter Note Images from the original note were not included. Dowel Pin Worker spoke with patient about lab results. Let patient know the following from AD Guerda Aggarwal MD Physician Signed [phone] Please let him know that he remains [...] he would follow up with his PCP. [facility] 04-27-2025 Telephone encounter Note Rx sent for oral iron pill. Will recheck after 6 mo. Please schedule annual visit. [facility] 04-06-2025 History of Present illness Narrative Images from the original note were not included. Subjective Patient ID: Royce Arizmendi is a 75 y.o. male who presents for Callouses (Royce W Ugo is a 75 y.o. male. Pt is [...] Jonathon Dahl DPM documented in this encounter [facility] 04-06-2025 Instructions Jonathon Dahl DPM - 04/06/2025 8:30 AM EDT As noted documented in this encounter [facility] 03-09-2025 History of Present illness Narrative Images from the original note were not included. [address] [facility] [address] SUBJECTIVE: Patient ID: Royce Arizmendi is a 75 y.o. male. Patient presents [...] Chao 03/09/25 1512 documented in this encounter [facility] 03-09-2025 Miscellaneous Notes PAP mask and supplies order with supportive documentation faxed to [facility]. documented in this encounter [facility] 03-09-2025 Telephone encounter Note PAP mask and supplies order with supportive documentation faxed to [facility]. [facility] [employer] [facility] 03-08-2025 History of Present illness Narrative Images from the original note were not included. Images from the original note were not included. CHIEF COMPLAINT: Royce Arizmendi is a 75 y.o. male who presents to [facility] in follow-up for STEFF and RLS The patient was unaccompanied. INTERVAL EVENTS Since last seen, Mr. Arizmendi reports that he is in need of [...] in chair overnight and fall asleep 1am, maryanniner Disney Sleepiness Scale: Sitting and Reading: (!) Moderate [...] anemia, unspecified COPD (chronic obstructive pulmonary disease) ([facility]) Cellulitis of right lower leg Arthritis of left sacroiliac joint Past Medical History: Diagnosis Date Anemia Arrhythmia Back pain 20 YEARS AGO Chronic pain disorder DJD (degenerative joint disease) Fractures right ribs GERD (gastroesophageal reflux disease) HL (hearing loss) mild HLD (hyperlipidemia) HTN (hypertension) in the past, no current medication Irregular heart beat Low back pain Morbid obesity ([facility]) Obesity STEFF (obstructive sleep apnea) bipap Pain Pneumonia 2014 RLS (restless legs syndrome) Varicella ASA KID Visual impairment glasses Past Surgical History: Procedure Laterality Date ANKLE ARTHROSCOPY Right COLONOSCOPY N/A 01/06/2023 Performed by Herman Haley DO at [facility] COLONOSCOPY N/A 10/12/2018 Performed by Sumit Mcakey MD at [facility] DAVINCI REPAIR HERNIA VENTRAL WITH MESH N/A 12/15/2019 Performed by Ramon Monson DO at [facility] SURGERY EYE SURGERY JOINT REPLACEMENT Left 2009 dr. booth knee REPLACEMENT TOTAL JOINT RIGHT KNEE Right 07/14/2019 Performed by Chico Sutton MD at [facility] REPLACEMENT TOTAL KNEE Right 04/25/2023 SINUS [...] 0428 Component Value Date/Time CALCIUM 8.3 (L) 08/02/2024 0428 ALKPHOS 121 08/02/2024 0428 AST 24 08/02/2024 0428 AST 30 07/31/2015 0814 ALT 42 (H) 08/02/2024 0428 ALT 34 07/31/2015 0814 Lab Results Component [...] 03/28/23 DIAGNOSIS: ? Obstructive Sleep Apnea (G47.33) (Iwroyp=399.0 lbs; BMI=45.2 kg/m2, on 03/28/2023) COMMENTS: This [...] of 45.0 to 49.9 in adult Royce Arizmendi is a 75 y.o. 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 Above plan as discussed with the patient who acknowledged understanding and agreement. GUERDA AGGARWAL MD [facility] [address] [address] documented in this encounter [facility] 03-08-2025 Instructions Guerda Aggarwal MD - 03/08/2025 11:00 AM EDT Discussed he may be a candidate for tirzepatide for STEFF and weight loss, if interested advised to discuss with PCP. Continue BiPAP Iron labs - hold iron 2 days before draw documented in this encounter [facility] 02-28-2025 History of Present illness Narrative Images from the original note were not included. [address] [place] [id number] SUBJECTIVE: Patient ID: Royce Arizmendi is a 74 y.o. male. Patient presents to the office for cellulitis recheck, has lost 5lbs since last visit, swelling and redness has improved. Sore is looking better as well. He is going to call the lymphedema clinic in [place]. Follow-up Pertinent negatives include no abdominal pain, [...] is going to call lymphedema clinic in [place] MARISA Chao 02/28/25 1548 documented in this encounter [facility] 02-24-2025 Miscellaneous Notes PT came in to [...] have any sooner appts at this time. Dowel Pin Worker called patient offered 03/08/2025 with AD in [place], patient moved appointment to 03/08/2025. documented in this encounter [facility] 02-24-2025 Telephone encounter Note PT came [...] have any sooner appts at this time. [facility] 02-24-2025 Telephone encounter Note Dowel Pin Worker called patient offered 03/08/2025 with AD in [place], patient moved appointment to 03/08/2025. [facility] 02-24-2025 History of Present illness Narrative Images from the original note were not included. Subjective Patient ID: Royce Arizmendi is a 74 y.o. male who presents [...] Jonathon Dahl DPM documented in this encounter [facility] 02-24-2025 Instructions Jonathon Dahl DPM - 02/24/2025 1:15 PM EDT As noted documented in this encounter [facility] 02-21-2025 History of Present illness Narrative Images from the original note were not included. [address] [facility] [id number] SUBJECTIVE: Patient ID: Royce Arizmendi is a 74 y.o. male. Patient presents [...] joint Chronic bronchitis, unspecified chronic bronchitis type ([facility]) BMI 45.0-49.9, adult ([facility]) Pure hypercholesterolemia Essential hypertension Other orders - [...] Chao 02/21/25 1517 documented in this encounter [facility] 02-21-2025 Miscellaneous Notes Patient is concerned his cellulitis is coming back in his leg. He had called and left message with front counter attendant asking for an antibiotic. Dowel Pin Worker called back to discuss with patient and he is willing to come in to office and be evaluated today. Appointment made for 2:45 today with Bo. [facility] 02-21-2025 Telephone encounter Note Patient is concerned his cellulitis is coming back in his leg. He had called and left message with front counter attendant asking for an antibiotic. Dowel Pin Worker called back to discuss with patient and he is willing to come in to office and be evaluated today. Appointment made for 2:45 today with Bo. [facility] Work Phone: 01-26-2025 History of Present illness Narrative Images from the original note were not included. Subjective Patient ID: Royce Arizmendi is a 74 y.o. male who presents [...] Jonathon Dahl DPM documented in this encounter [facility] 01-26-2025 Instructions Jonathon Dahl DPM - 01/26/2025 2:30 PM EDT As noted documented in this encounter [facility] 12-29-2024 History of Present illness Narrative Images from the original note were not included. Subjective Patient ID: Royce Arizmendi is a 74 y.o. male who presents [...] Jonathon Dahl DPM documented in this encounter [facility] 12-29-2024 Instructions Jonathon Dahl DPM - 12/29/2024 2:30 PM EST As noted documented in this encounter [facility] 12-27-2024 Miscellaneous Notes Patient called stating that his cellulitis is coming back. Patient said that Dr. Blank has instructed him to call the office and he could send him in some medicine to help with this [facility] documented in this encounter [facility] 12-27-2024 Telephone encounter Note Patient called stating that his cellulitis is coming back. Patient said that Dr. Blank has instructed him to call the office and he could send him in some medicine to help with this [facility] 12-27-2024 Telephone encounter Note Sent bactrim to [facility] 12-13-2024 History of Present illness Narrative Images from the original note were not included. Subjective Patient ID: Royce Arizmendi is a 74 y.o. male who presents for Foot Pain (Royce Arizmendi is a 74 y.o. male. Patient relates [...] NWO TOTAL KNEE ARTHROPLASTY Left LT TKA- EMMY TOTAL KNEE ARTHROPLASTY Left 05/09/2024 Family [...] Jonathon Dahl DPM documented in this encounter [facility] 12-13-2024 Instructions Jonathon Dahl DPM - 12/13/2024 1:00 PM EST As noted documented in this encounter [facility] 11-24-2024 History of Present illness Narrative Images from the original note were not included. Subjective Patient ID: Royce Arizmendi is a 74 y.o. male who presents [...] Jonathon Dahl DPM documented in this encounter [facility] 11-24-2024 Instructions Jonathon Dahl DPM - 11/24/2024 2:45 PM EST As noted documented in this encounter [facility] 11-08-2024 History of Present illness Narrative Change [...] Care - Office Visit for this issue? 12/05/24 Office visit Nursing Recommendations and Patient Response: SN encouraged again to schedule with lymphedema clinic as well as to wrap legs when he is going out Please advise as I will be following up with the patient. Thanks Luba RN [facility] Chronic Care Nurse [employer] M[employer] [phone] documented in this encounter [facility] 11-08-2024 Miscellaneous Notes Bactrim DS 1 bid rx for 10d sent to [facility] for pt - please encourage f/u lymphedema clinic to ER if worse Patient advised, patient verbalized understanding documented in this encounter [facility] 11-08-2024 Telephone encounter Note Bactrim DS [facility] - please encourage f/u lymphedema clinic to ER if worse [facility] 11-08-2024 Telephone encounter Note Patient advised, patient verbalized understanding [facility] 10-21-2024 History of Present illness Narrative Images from the original note were not included. [address] [facility] [address] Subjective: Royce Arizmendi is a 74 y.o. male who presents for a Medicare Annual Wellness exam. The following portions of the patient's history were reviewed and updated as appropriate: Health Risk Assessment, allergies, past medical history, past surgical history, social history, family history, and immunization history Accompanied by: self History Provided By: self Language and Other Communication Barriers: Primary Language Spoken: Australian Highest Level of Education Completed: high school [...] Do you have a durable power of hogshead liner?: Yes Fall Risk Fall Risk Assessment Completed?: [...] 05/17/2024 COPD (chronic obstructive pulmonary disease) ([facility]) 05/17/2024 Mechanical loosening of internal right knee prosthetic joint, initial encounter ([facility]) 05/12/2024 Presence of right artificial knee joint [...] of 45.0 to 49.9 in adult ([facility]) 04/13/2020 Lymphedema of both lower extremities 12/28/2019 Knee mass, right 10/01/2019 Primary osteoarthritis of right knee 07/14/2019 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 12/17/2018 Adenomatous polyp of transverse colon 10/19/2018 Encounter for colonoscopy due to history of colonic polyp 09/08/2018 Morbid obesity with BMI of 40.0-44.9, adult ([facility]) 01/19/2018 STEFF (obstructive sleep apnea) 11/25/2016 Dyspnea [...] beat Low back pain Morbid obesity ([facility]) Obesity STEFF (obstructive sleep apnea) bipap Pain Pneumonia 2014 RLS (restless legs syndrome) Varicella ASA KID Visual impairment glasses Past Surgical History: Procedure Laterality Date ANKLE ARTHROSCOPY Right COLONOSCOPY N/A 01/06/2023 Performed by Herman Haley DO at [facility] COLONOSCOPY N/A 10/12/2018 Performed by Sumit Mackey MD at [facility] DAVINCI REPAIR HERNIA VENTRAL WITH MESH N/A 12/15/2019 Performed by Ramon Monson DO at [facility] AM[facility] SURGERY EYE SURGERY JOINT REPLACEMENT Left 2009 dr. booth knee REPLACEMENT TOTAL JOINT RIGHT KNEE Right 07/14/2019 Performed by Chico Sutton MD at [facility] REPLACEMENT TOTAL KNEE Right 04/25/2023 SINUS [...] Final METHOD TRACEABLE TO IDMS STANDARD Glucose 07/30/2024 95 65 - 99 [...] Final METHOD TRACEABLE TO IDMS STANDARD Glucose 07/31/2024 131 (H) 65 - [...] copy in patient's medical record. Assessment/Plan: Royce Arizmendi has been seen for a well visit today. Preventative recommendations were reviewed. Any chronic conditions that have been addressed include those listed below. Royce was seen today for annual exam. Diagnoses and all orders for this visit: Routine general medical examination at a health care facility Essential hypertension Pure hypercholesterolemia Lymphedema of both lower extremities BMI 45.0-49.9, adult ([facility]) Other orders - atorvastatin (LIPITOR) 10 mg [...] lymphedema clinic encouraged documented in this encounter [facility] 10-21-2024 Instructions Megan Blank MD - 10/21/2024 [...] services: Not applicable documented in this encounter [facility] 10-07-2024 Evaluation + Plan note Associated Problem(s): Lymphedema of both lower extremities This complex decongestive therapy, regular use of lymphedema wraps, leg elevation weight loss. I also recommended using his lymphedema pump. He will see the lymphedema clinic soon. [facility] 10-07-2024 Miscellaneous Notes Associated Problem(s): Lymphedema of both lower extremities This complex decongestive therapy, regular use of lymphedema wraps, leg elevation weight loss. I also recommended using his lymphedema pump. He will see the lymphedema clinic soon. documented in this encounter [facility] 10-07-2024 History of Present illness Narrative Images from the original note were not included. To: Megan Blank MD HPI: Royce Arizmendi is a 74 y.o. male with Bilateral [...] not taking: Reported on 10/07/2024) Lactobac comb 3-[id number] (PROBIOTIC & ACIDOPHILUS) 300-250 million cell-mg capsule [...] 01/06/2023 Performed by Herman Haley DO at [facility] COLONOSCOPY N/A 10/12/2018 Performed by Sumit Mackey MD at [facility] DAVINCI REPAIR HERNIA VENTRAL WITH MESH N/A 12/15/2019 Performed by Ramon Monson DO at [facility] SURGERY EYE SURGERY JOINT REPLACEMENT Left 2009 dr. booth knee REPLACEMENT TOTAL JOINT RIGHT KNEE Right 07/14/2019 Performed by Chico Sutton MD at [facility] REPLACEMENT TOTAL KNEE Right 04/25/2023 SINUS [...] Strain: Low Risk (05/12/2024) Received from [facility] Overall Financial Resource Strain (CARDIA) Difficulty [...] min Stress: No Stress Concern Present (12/05/2019) [place] of Occupational Health - Occupational Stress Questionnaire Feeling of Stress : Not at all Social Connections: Socially Integrated (12/05/2019) Social Connection and Isolation Panel [NHANES] Frequency of Communication with Friends and Family: Twice a week Frequency of Social Gatherings with Friends and Family: Once a week Attends Yazidi Services: More than 4 times per year [...] Cesar Valle MD, JOSEPH, RPVI, FSVS, FACS [facility] This note was created with the assistance of a speech recognition program. While intending to generate a timely document that accurately reflects the content of the visit, no guarantee can be provided that every grammatical or spelling mistake has been or will be identified or corrected. Thank you for your understanding. documented in this encounter [facility] 09-28-2024 History of Present illness Narrative Images from the original note were not included. [address] [facility] [address] SUBJECTIVE: Patient ID: Royce Arizmendi is a 74 y.o. male. 74 wm [...] referral to vascular documented in this encounter [facility] 08-12-2024 History of Present illness Narrative Images from the original note were not included. Subjective Patient ID: Royce Arizmendi is a 74 y.o. male who presents [...] Jonathon Dahl DPM documented in this encounter [facility] 08-12-2024 Instructions Jonathon Dahl DPM - 08/12/2024 2:45 PM EDT As noted documented in this encounter [facility] 08-09-2024 History of Present illness Narrative Images from the original note were not included. [address] [facility] [address] SUBJECTIVE: Patient ID: Royce Arizmendi is a 74 y.o. male. 74 yo [...] (CMS-HCC) Essential hypertension Pure hypercholesterolemia Asthenia - [facility] Neurology - Neurosciences [place] [facility] [place], [place]; Future Other orders - doxycycline (VIBRAMYCIN) 100 mg capsule; Take 1 capsule (100 mg total) by mouth in the morning and 1 capsule (100 mg total) before bedtime. Do all this for 15 days. Follow-up: Stop keflex Doxycycline 100mg bid x30d Dr Garcia referral documented in this encounter [facility] 08-06-2024 Miscellaneous Notes Please call patient, he is having a reaction to a medication given to him at the [facility] [phone] Pt called and will stop probiotic due to se's documented in this encounter [facility] 08-06-2024 Telephone encounter Note Please call patient, he is having a reaction to a medication given to him at the hospital [phone] [facility] [employer] [facility] 08-06-2024 Telephone encounter Note Pt called and will stop probiotic due to se's [facility] [employer] [facility] 07-30-2024 History of Present illness Narrative Images from the original note were not included. [address] [facility] [place] [address] SUBJECTIVE: Patient ID: Royce Arizmendi is a 74 y.o. male. 74 yo [...] days of doxycycline documented in this encounter [facility] 07-27-2024 Miscellaneous Notes Patient called and [...] is going now. documented in this encounter [facility] 07-27-2024 Telephone encounter Note Patient called and said his right leg/foot is red, swollen, warm to the touch. The skin is hard as a rock per patient. He previously had cellulitis of the leg he said. What do you recommend that he can do? He is no longer going to the lymphedema clinic. [facility] 07-27-2024 Telephone encounter Note Pt has been admitted for cellulitis in the past so would recommend ER eval today! [facility] 07-27-2024 Telephone encounter Note Called patient and he is agreeable to go to the ER. He said he is going now. [facility] 07-02-2024 History of Present illness Narrative Pt here for dressing change to his right lower leg. Old dressing removed. Small amount drainage noted on old dressing. New dressing applied without problems. Pt to return in one week for provider visit. documented in this encounter [facility] 07-02-2024 Instructions Kathi Yoon RN - [...] serous documented in this encounter [facility] 06-29-2024 Miscellaneous Notes Call received form patient asking if he should continue to keep wound covered. Dowel Pin Worker reviewed wound care orders with patient, and instructed patient to continue dressings as directed at last appointment. Patient voiced understanding documented in this encounter [facility] 06-29-2024 Telephone encounter Note Call received form patient asking if he should continue to keep wound covered. Dowel Pin Worker reviewed wound care orders with patient, and instructed patient to continue dressings as directed at last appointment. Patient voiced understanding [facility] 06-25-2024 History of Present illness Narrative Images from the original note were not included. Wound Care Progress Note Patient: Royce Arizmendi Date of : 1950 Chief Compliant: Wound of right leg New patient evaluation SUBJECTIVE/HPI: Royce is a 74 y.o. male who presents to [facility] for evaluation of 1 ulcer(s) [...] obesity with BMI of 40.0-44.9, adult ([facility]) Encounter for colonoscopy due to history of [...] of 45.0 to 49.9 in adult ([facility]) Restless leg syndrome Psychophysiological insomnia Chronic midline low back pain without sciatica Weakness of both lower limbs Cervical stenosis of spinal canal Muscle weakness Balance problems Excessive daytime sleepiness Neuralgia Cellulitis of right lower extremity Mechanical loosening of internal right knee prosthetic joint, initial encounter ([facility]) Presence of right artificial knee joint S/P total knee arthroplasty, right Failure of outpatient treatment Bilateral leg edema Moderate aortic stenosis Lymphangitis Iron deficiency anemia, unspecified COPD (chronic obstructive pulmonary disease) ([facility]) Past Medical History: Diagnosis Date Anemia Arrhythmia Back pain 20 YEARS AGO Chronic pain disorder DJD (degenerative joint disease) Fractures right ribs GERD (gastroesophageal reflux disease) HL (hearing loss) mild HLD (hyperlipidemia) HTN (hypertension) in the past, no current medication Irregular heart beat Low back pain Morbid obesity ([facility]) Obesity STEFF (obstructive sleep apnea) bipap Pain Pneumonia 2014 RLS (restless legs syndrome) Varicella ASA KID Visual impairment glasses Past Surgical History: Procedure Laterality Date ANKLE ARTHROSCOPY Right COLONOSCOPY N/A 01/06/2023 Performed by Herman Haley DO at [facility] COLONOSCOPY N/A 10/12/2018 Performed by Sumit Mackey MD at [facility] DAVINCI REPAIR HERNIA VENTRAL WITH MESH N/A 12/15/2019 Performed by Ramon Monson DO at [facility] SURGERY EYE SURGERY JOINT REPLACEMENT Left 2009 dr. booth knee REPLACEMENT TOTAL JOINT RIGHT KNEE Right 07/14/2019 Performed by Chico Sutton MD at [facility] SINUS SURGERY yrs ago TONSILLECTOMY AND ADENOIDECTOMY [...] (Active) Wound Image 06/25/24 1400 Site Assessment Yellow;[place];Brown;Moist 06/25/24 144 Cammie-wound Assessment [place];White;Blanchable erythema 06/25/24 1447 Shape blocked 06/25/24 1447 Wound Length (cm) 7 cm 06/25/24 1400 Wound Width (cm) 10 cm 06/25/24 1400 Wound Surface Area (cm^2) 70 cm^2 06/25/241399 Wound Depth (cm) 0.1 cm 06/25/241399 Wound Volume (cm^3) 7 cm^3 06/25/241399 Drainage Description Serous;Yellow 06/25/24 1447 Drainage Amount Small 06/25/24 1447 Debridement Performed? N 06/25/24 1447 Wound Bed Granulation (%) < 25% 06/25/241399 Wound Bed Slough (%) 75% to 100% 06/25/241399 Assessment/Plan/Education: 1. Blister of right lower extremity [...] and calf. Short term goal: medical compliance shelter goal: wound closure Patient verbalize ability to [...] PM Jo Stone APRN, STEPHEN, CWS, BR[facility]: [phone] MARISA Fernandez 06/25/24 1539 documented in this encounter [facility] 06-25-2024 Instructions MARISA Fernandez - 06/25/2024 [...] serous documented in this encounter [facility] 06-25-2024 History of Present illness Narrative Images from the original note were not included. [address] [facility] [id number] SUBJECTIVE: Patient ID: Royce Arizmendi is a 74 y.o. male. 74 yo [...] visit: Lymphedema of both lower extremities - [facility] - [place], [place]; Future Essential hypertension Cellulitis of right lower extremity - clindamycin (CLEOCIN) 150 mg capsule; Take 2 capsules (300 mg total) by mouth 3 (three) times a day for 5 days. - [facility] - [place], [place]; Future Other orders - silver sulfADIAZINE (SILVADENE, SSD) 1 % cream; Apply 1 Application topically in the morning. Follow-up: Wound clinic Clindamycin , SSD cream as previous documented in this encounter [facility] 06-24-2024 Evaluation + Plan note Associated Problem(s): Lymphedema of both lower extremities Complex decongestive therapy. Referral to the lymphedema clinic. [facility] 06-24-2024 Evaluation + Plan note Associated Problem(s): Lymphangitis Continue antibiotics. Complex decongestive therapy and lymphedema clinic referral. [facility] 06-24-2024 Miscellaneous Notes Associated Problem(s): Lymphedema of both lower extremities Complex decongestive therapy. Referral to the lymphedema clinic. Associated Problem(s): Lymphangitis Continue antibiotics. Complex decongestive therapy and lymphedema clinic referral. documented in this encounter [facility] 06-24-2024 History of Present illness Narrative Images from the original note were not included. To: Megan Blank MD HPI: Royce Arizmendi is a 74 y.o. male with Bilateral [...] 01/06/2023 Performed by Herman Haley DO at [facility] COLONOSCOPY N/A 10/12/2018 Performed by Sumit Mackey MD at [facility] DAVINCI REPAIR HERNIA VENTRAL WITH MESH N/A 12/15/2019 Performed by Ramon Monson DO at [facility] SURGERY EYE SURGERY JOINT REPLACEMENT Left 2009 dr. booth knee REPLACEMENT TOTAL JOINT RIGHT KNEE Right 07/14/2019 Performed by Chcio Sutton MD at [facility] SINUS SURGERY yrs ago TONSILLECTOMY AND [...] Strain: Low Risk (05/12/2024) Received from [facility] Overall Financial Resource Strain (CARDIA) Difficulty [...] min Stress: No Stress Concern Present (12/05/2019) [place] [facility] Occupational [employer] - Occupational Stress Questionnaire Feeling of Stress : Not at all Social Connections: Socially Integrated (12/05/2019) Social Connection and Isolation Panel [NHANES] Frequency of Communication with Friends and Family: Twice a week Frequency of Social Gatherings with Friends and Family: Once a week Attends Yazidi Services: More than 4 times per year Active Member of Clubs or Organizations: Yes Attends Club or Organization Meetings: Never Marital Status: Interpersonal Safety: Unknown (05/31/2024) Received from [facility] Humiliation, Afraid, Rape, and Kick questionnaire [...] of both lower extremities - [facility] - [place], [place] - Ambulatory referral to Lymphedema Clinic (Non-[facility]); Future - Ambulatory referral to Wound Care (Non-[facility]); Future Cesar Valle MD, JOSEPH, RPVI, FSVS, FACS [facility] This note was created with the assistance of a speech recognition program. While intending to generate a timely document that accurately reflects the content of the visit, no guarantee can be provided that every grammatical or spelling mistake has been or will be identified or corrected. Thank you for your understanding. documented in this encounter [facility] 06-16-2024 Miscellaneous Notes Patient was not sure why Vascular was referred but he says he has a lot of appointments and right now he is not ready to schedule documented in this encounter [facility] 06-16-2024 Telephone encounter Note Patient was not sure why Vascular was referred but he says he has a lot of appointments and right now he is not ready to schedule [facility] 06-15-2024 History of Present illness Narrative Images from the original note were not included. [id number] [facility] [place] [id number] SUBJECTIVE: Patient ID: Royce Arizmendi is a 74 y.o. male. 74 yo [...] and vascular surgery documented [email or web address] 06-10-2024 Miscellaneous Notes Contact Type: Direct contact - Phone call with patient - general Dowel Pin Worker spoke with home care nurse and patients right leg is swollen, red, uncomfortable and he does not feel the greatest. PCP does not have any availability today but saw the picture sent by nurse, and patient was advised to go to the ER to be evaluated for blood clot vs infection. Patient verbalized understanding and will go to ER. documented in this encounter [facility] 06-10-2024 Telephone encounter Note Contact Type: Direct contact - Phone call with patient - general Dowel Pin Worker spoke with home care nurse and patients right leg is swollen, red, uncomfortable and he does not feel the greatest. PCP does not have any availability today but saw the picture sent by nurse, and patient was advised to go to the ER to be evaluated for blood clot vs infection. Patient verbalized understanding and will go to ER. [facility] Work Phone: 06-04-2024 History of Present illness Narrative Images from the original note were not included. [id number] [facility] [id number] SUBJECTIVE: Transition of Care (*required) [...] obesity with BMI of 40.0-44.9, adult ([facility]) Restless leg syndrome Weakness of both lower limbs Balance problems Excessive daytime sleepiness Mechanical loosening of internal right knee prosthetic joint, initial encounter ([facility]) Failure of outpatient treatment Bilateral leg edema Moderate aortic stenosis Discharge Specialty: Other *Name of Discharging Facility: [facility] Date of Facility Discharge: Admission 05/25/24 Discharge 05/27/24 Date of Interactive Contact and Name of Sales Appointment Coordinator: 05/28/24 0981 Unable to reach patient. LV 05/28/24 1:29 pm Unable to reach patient *Medication Review Completed: No START taking: CEPHalexin (KEFLEX) potassium chloride (K-TAB,KLOR-CON) Medication Reconciliation Questions/Concerns: NA *Follow Up Appointments with Providers: Primary: Megan Blank MD 06/04/24 0925 Specialty: Specialty: Specialty: Review of Pending Lab/Diagnostic Tests and Plan for Completion: BMP Assessment and Support of Treatment Regimen Adherence and Medication Management: NA Education Provided by ACN to Support Self-Management, Independent Living and ADLs: NA Communication with Home Health Agencies and Other Services Utilized/Needed by the Patient: NA Patient ID: Royce Arizmendi is a 74 y.o. male. 74 yo [...] extremity S/P total knee arthroplasty, right - [facility] - [place], [place]; Future Follow-up: Pt has completed all antibiotics Home ptx to transition to out pt Elevation , salt Pt has been in 3 lymphedema clinic f/u ortho documented in this encounter [facility] 06-04-2024 Miscellaneous Notes Addended by: MEGAN BLANK on: 06/04/2024 10:05 AM Modules accepted: Orders documented in this encounter [facility] 06-04-2024 Note Addended by: MEGAN CROCKER on: 06/04/2024 10:05 AM Modules accepted: Orders [facility] 05-31-2024 Note Orthopedic Surgery Subjective 05/12/2024 - Revision, Total Arthroplasty, Knee,stage 2, Except Patella With Intraop Frozen Sections - Right 05/31/24 Royce Arizmendi is a 74 y.o. male 19 days [...] or rigors or any breathlessness. 05/24/24 Royce Arizmendi is a 74 y.o. male 19 days [...] History: Diagnosis Date Anemia Class 3 obesity ([facility]) Colon polyp Diverticulosis Hyperlipidemia Hypertension Lumbosacral spondylosis without myelopathy Lymphedema of both lower extremities Mechanical loosening of internal right knee prosthetic joint, initial encounter ([facility]) OA (osteoarthritis) Onychomycosis RLS (restless legs syndrome) [...] the patient and his son. Assessment/Plan Royce Arizmendi is a 74 y.o. male s/p Revision, [...] antibiotics prior to dental work or colonoscopy. [facility] Orthopaedic Surgery 05/31/24 11:12 AM Office Visit Attestation GC: I personally saw this patient on the day of the encounter, performed the howard portion(s) of the service and participated in the management and confirm the medical student's documentation. Please note there may be an additional personal documentation from me. Dr. Gretel Chappell MD MRCSEd Lamination Inspector orthopedic surgery Adult Reconstruction and Trauma [facility] (more content not included)... [facility] 05-28-2024 Miscellaneous Notes Transition of Care (*required) [...] obesity with BMI of 40.0-44.9, adult ([facility]) Restless leg syndrome Weakness of both lower limbs Balance problems Excessive daytime sleepiness Mechanical loosening of internal right knee prosthetic joint, initial encounter ([facility]) Failure of outpatient treatment Bilateral leg edema Moderate aortic stenosis Discharge Specialty: Other *Name of Discharging Facility: [facility] Date of Facility Discharge: Admission 05/25/24 Discharge 05/27/24 Date of Interactive Contact and Name of Sales Appointment Coordinator: 05/28/24 0955 Unable to reach patient. LV 05/28/24 1:29 [...] the Patient: NA documented in this encounter [facility] 05-28-2024 Telephone encounter Note Transition of Care [...] obesity with BMI of 40.0-44.9, adult ([facility]) Restless leg syndrome Weakness of both lower limbs Balance problems Excessive daytime sleepiness Mechanical loosening of internal right knee prosthetic joint, initial encounter ([facility]) Failure of outpatient treatment Bilateral leg edema Moderate aortic stenosis Discharge Specialty: Other *Name of Discharging Facility: [facility] Date of Facility Discharge: Admission 05/25/24 Discharge 05/27/24 Date of Interactive Contact and Name of Sales Appointment Coordinator: 05/28/24 0955 Unable to reach patient. LVM 05/28/24 1:29 [...] Other Services Utilized/Needed by the Patient: NA [facility] 05-24-2024 Note Attestation signed by Gretel Chappell MD at 05/25/2024 7:56 PM I have not seen the patient personally, he was seen as postop follow up by oncall orthopedic surgery resident, Dr Ernie MD. Care was discussed with my resident Dr Ta BOLANOS Orthopedic Surgery Subjective 05/12/2024 - Revision, Total Arthroplasty, Knee,stage 2, Except Patella With Intraop Frozen Sections - Right 05/25/24 Royce Arizmendi is a 74 y.o. male 12 days [...] History: Diagnosis Date Anemia Class 3 obesity ([facility]) Colon polyp Diverticulosis Hyperlipidemia Hypertension Lumbosacral spondylosis without myelopathy Lymphedema of both lower extremities Mechanical loosening of internal right knee prosthetic joint, initial encounter ([facility]) OA (osteoarthritis) Onychomycosis RLS (restless legs syndrome) Sleep apnea Objective Exam: - Incision clean, dry, and intact. No drainage or erythema. - Erythema and edema from the ebcerril down to the foot. - Non-tender to [...] with no soft tissue gas Assessment/Plan Royce Arizmendi is a 74 y.o. male s/p Revision, [...] MD Orthopaedic Surgery, Resident PGY-1 Ortho Pager [phone] 05/25/24 3:33 PM May contact the on-call resident with any concerns via the Orthopaedic pager at any time. [facility] 05-18-2024 Miscellaneous Notes Elsa from [facility] PT-she thinks Royce is developing cellulitis lower right leg, he is on a 5 day course of antibiotics, surgeon has been notified but she wanted you to know as well, any questions you can call her [phone] Please call pt - what antibiotic is he on ?, he will run out on Friday?, is it helping? Patient is on Keflex, has 2 more days, not sure if its helping Doxycyclinr rx to [facility] 10d Patient notified of message and verbalizes understanding documented in this encounter [facility] [employer] [facility] 05-18-2024 Telephone encounter Note Elsa from [facility] PT-she thinks Royce is developing cellulitis lower right leg, he is on a 5 day course of antibiotics, surgeon has been notified but she wanted you to know as well, any questions you can call her [phone] [facility] 05-18-2024 Telephone encounter Note Please call pt - what antibiotic is he on ?, he will run out on Friday?, is it helping? [facility] 05-18-2024 Telephone encounter Note Patient is on Keflex, has 2 more days, not sure if its helping [facility] 05-18-2024 Telephone encounter Note Doxycyclinr rx to [facility] 10d [facility] 05-18-2024 Telephone encounter Note Patient notified of message and verbalizes understanding [facility] 05-13-2024 Note Attestation signed by Carrie White PT at 05/13/2024 4:10 PM This freelance copywriter present and provided 1:1 supervision and direction of patient care. Carrie White PT, MPT Physical Therapy Physical Therapy Evaluation Patient Name: Royce Arizmendi : 1950 Today's Date: 05/13/2024 Royce Arizmendi is a 74 y/o male s/p R [...] arrival, friendly and willing to work with [facility] anaue he wants to go home. Upon completion, pt in recliner, call light in reach, legs elevated, and nurse notified. 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, initial encounter ([facility]) Past Medical History: Diagnosis Date Anemia Class 3 obesity ([facility]) Colon polyp Diverticulosis Hyperlipidemia Hypertension Lumbosacral spondylosis without myelopathy Lymphedema of both lower extremities Mechanical loosening of internal right knee prosthetic joint, initial encounter ([facility]) OA (osteoarthritis) Onychomycosis RLS (restless legs syndrome) [...] Adaptive Equipment: Walker rolling, Cane, Sock aid, Manager Technical Services, Long-handled shoehorn Home Living Comments: Patient has [...] Level of Function Prior Function Level of [place]: Independent with ADLs and functional transfers, Independent [...] and Coordinated: Yes (more content not included)... [facility] 05-13-2024 Note Attestation signed by Palmira Rosenthal OT at 05/13/2024 4:15 PM This freelance copywriter present and provided 1:1 supervision and direction of patient care. 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, initial encounter ([facility]) Past Medical History: Diagnosis Date Anemia Class 3 obesity ([facility]) Colon polyp Diverticulosis Hyperlipidemia Hypertension Lumbosacral spondylosis without myelopathy Lymphedema of both lower extremities Mechanical loosening of internal right knee prosthetic joint, initial encounter ([facility]) OA (osteoarthritis) Onychomycosis RLS (restless legs syndrome) [...] Walker rolling, Cane, Sock aid, Long-handled shoehorn, Manager Technical Services Home Layout: Laundry in basement, One level [...] Level of Function Prior Function Level of [place]: Independent with ADLs and functional transfers, Independent [...] extremity supported, Unilater (more content not included)... [facility] 05-13-2024 Note 05/13/24 1243 Referral Data Referral Source Physician Referral Reason Information Activities of Daily Living Assistive Device Other (Comment) (Has cane, rolling walker, shower chair, raised toilet seat.) Living Arrangement (Current/Prior to Hospitalization) Private residence (1 story home w/ 3 steps to enter.) Ambulation Independent Dressing Independent Feeding Independent Behavior Oriented Communication Talks;Understands speaking;Understands [place] Discharge Planning Support Systems Spouse/significant other;Children (Lives w/ who has MS and unable to assist, has 2 local children who are supportive.) Type of Residence Private residence Will patient need Precert for Post Acute needs? No Patient's goal for discharge Home with HHC. Does the patient need discharge transport arranged? No Screened pt at bedside who is alert/ox4. Pt lives at home with his who has MS and is unable to assist, however, he also has 2 adult children that are both local/supportive. OT/PT evaluated and recommended HHC and pt is agreeable to this and would like to try for [facility] as his is already active with them. Advised pt it may come down to insurance and he stated he does not have a preference in alternative providers if needed. Referrals sent to [facility] and [facility]. UPDATE 1PM- [facility] accepted. Updated the AVS and sent via [facility] as pt's ready for discharge. [facility] 05-13-2024 Note 05/13/24 0904 Admission Assessment Questions [...] Status Interested Does the patient have a nurse case manager assigned to them through their insurance? No Living Arrangement (Current/Prior to Hospitalization) Private residence (Lives with ) Does the patient have history of HHC or SNF? Yes ( [facility]) Assistive Device Walker;Cane;Grab bars;Raised toilet seat Patient's [...] caregiver for his . [facility] 05-13-2024 Note Attestation signed by Gretel Chappell [...] No results found for: CULTURE ASSESSMENT: Royce Arizmendi is a 74 y.o. male s/p RIGHT REVISION, TOTAL ARTHROPLASTY, KNEE,STAGE 2, EXCEPT PATELLA WITH INTRAOP FROZEN SECTIONS 13828 - VA REVJ TOT KNEE ARTHRP FEM&ENTIRE TIBIAL COMPONE [...] any questions or concerns Lyle Stockton, MS4 [facility] 05/13/24 6:25 AM Dwayne Sparrow MD Orthopedic Surgery, PGY-2 Pager: [phone] 05/13/24 7:33 AM [facility] 05-12-2024 Note Patient: Royce fournier Procedure Summary Date: 05/12/24 Room / Location: [facility] OPERATING ROOM 02 / [facility] Operating Room Anesthesia Start: 1108 Anesthesia Stop: 1524 Procedure: REVISION, TOTAL ARTHROPLASTY, KNEE,STAGE 2, EXCEPT PATELLA WITH INTRAOP FROZEN SECTIONS (Right: Knee) Diagnosis: Mechanical loosening of internal right knee prosthetic joint, initial encounter (CMS/HCC) Instability of internal right knee prosthesis, initial encounter (CMS/HCC) Class 3 obesity with alveolar hypoventilation and body mass index (BMI) of 40.0 to 44.9 in adult, unspecified whether serious comorbidity present (CMS/HCC) (Mechanical loosening of internal right knee prosthetic joint, initial encounter (CMS/[facility]) [T84.032A]) Surgeons: Gretel Chappell MD Responsible Provider: [...] per anesthesia protocol. No notable events documented. [facility] 05-12-2024 Note Patient: Royce fournier Procedure Summary Date: 05/12/24 Room / Location: [facility] OPERATING ROOM 02 / [facility] Operating Room Anesthesia Start: 1108 Anesthesia Stop: Procedure: REVISION, TOTAL ARTHROPLASTY, KNEE,STAGE 2, EXCEPT PATELLA WITH INTRAOP FROZEN SECTIONS (Right: Knee) Diagnosis: Mechanical loosening of internal right knee prosthetic joint, initial encounter (CMS/HCC) Instability of internal right knee prosthesis, initial encounter (CMS/HCC) Class 3 obesity with alveolar hypoventilation and body mass index (BMI) of 40.0 to 44.9 in adult, unspecified whether serious comorbidity present (CMS/HCC) (Mechanical loosening of internal right knee prosthetic joint, initial encounter (CMS/[facility]) [T84.032A]) Surgeons: Gretel Chappell MD Responsible Provider: Talita Kaminski MD Anesthesia Type: general, regional ASA Status: 3 Anesthesia Post Transport Note Transport to: PACU O2 Route: face mask Oxygen Flow (L/min): 8 Airway adjunct: nasal airway Patient Monitor: direct observation Transport: uneventful Patient condition is: stable [facility] 05-12-2024 Note Peripheral Block Patient location during procedure: OR Start time: 05/12/2024 2:55 PM End time: 05/12/2024 3:13 PM Reason for block: at surgeon's request and post-op pain management Staffing Performed: resident/POWER PLANT INSPECTOR/JAMES Anesthesiologist: Talita Kaminski MD Resident/POWER PLANT INSPECTOR: Ollie Nielsen MD Preanesthetic Checklist Completed: patient identified, IV checked, site marked, risks and benefits discussed, surgical consent, monitors and equipment checked, pre-op evaluation and timeout performed Peripheral Block Patient position: supine Prep: ChloraPrep Patient monitoring: heart rate, continuous pulse ox and classroom monitor Block type: adductor canal block Laterality: [...] rate change: no Slow fractionated injection: yes [facility] 05-12-2024 Note Airway Date/Time: 05/12/2024 11:16 AM Urgency: elective Airway not difficult General Information and Staff Patient location during procedure: OR Anesthesiologist: Talita Kaminski MD Resident/POWER PLANT INSPECTOR/CAA: JAMES Ramos Performed: resident/POWER PLANT INSPECTOR/CAA and other anesthesia staff Learner assisted: Cornel [...] video laryngoscopy Facilitating devices/methods: intubating stylet Blade: Terence Blade size: #3 ETT size (mm): 7.5 Cormack-Lehane Classification: grade I - full view of glottis Placement verified by: chest auscultation and capnometry Measured from: lips ETT to lips (cm): 23 Number of attempts at approach: 1 [facility] 05-12-2024 Note Patient: Royce fournier Procedure Information Date/Time: 05/12/24 1145 Procedure: REVISION, TOTAL ARTHROPLASTY, KNEE, ALL COMPONENTS STAGE 1 VS. STAGE 2 WITH INTRAOP FROZEN SECTIONS (Right: Knee) - JEONG AND NEPHEW IN, PLAN FOR S&N REVISION, REP NOTIFIED 05/03 ZENAIDA Location: [facility] OPERATING ROOM 02 / [facility] Operating Room Surgeons: Gretel Chappell MD Relevant [...] with attending and CAA. 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 Do not wear perfume, make-up, nail tajik, or lotions on the day of your [...] need to make any changes, please call [phone]. Notify your surgeon if you develop any illness such as a cold, cough, fever, sore throat or vomiting between now and your surgery. Thank you for entrusting us with your care. [facility] Surgical Services Team [facility] 04-27-2024 Note I spoke to the vandana nt for pre-operative education and discharge planning prior [...] will decide after surgery if he wants C or outpatient therapy. [facility] 04-20-2024 Miscellaneous Notes Pt has fasting labs to do from October and I added an EKG, we can use appt from 03/10 and donot need appt , but I need pt to do fasting labs and EKG Patient notified to complete testing and we will call him with results/clearance documented in this encounter [facility] 04-20-2024 Telephone encounter Note Pt has fasting labs to do from October and I added an EKG, we can use appt from 03/10 and donot need appt , but I need pt to do fasting labs and [facility] encounter Note Patient notified to complete testing and we will call him with results[facility]clearance [facility] Orthopedic Surgery Subjective New Patient and Pain of the Right Knee 04/19/24 Royce Arizmendi is a 74 y.o. male presenting for evaluation of right knee pain. Patient reports that he has had pain of his right knee for the last several months, which is worse with walking. Patient reports that he has a history of a right total knee replacement performed by Dr. Chico Sutton MD at [facility] 5 years ago on 14 July 2019. [...] visit S/p bilateral (more content not included)... [facility] 03-11-2024 History of Present illness Narrative Images from the original note were not included. [address] [facility] [place] [address] SUBJECTIVE: Patient ID: Royce Arizmendi is a 74 y.o. male. 74 yo [...] pelvis Ortho referral documented in this encounter [facility] 02-19-2024 Miscellaneous Notes Patient requesting refill of Atorvastatin, Omeprazole and Pramipexole to [facility] documented in this encounter [facility] 02-19-2024 Telephone encounter Note Patient requesting refill of Atorvastatin, Omeprazole and Pramipexole to [facility] 01-26-2024 History of Present illness Narrative Images from the original note were not included. [address] [place] [address] SUBJECTIVE: Patient ID: Royce Arizmendi is a 73 y.o. male. 73 yo [...] 40mg 1 qd documented in this encounter [facility] 01-16-2024 Miscellaneous Notes [facility]ill to [facility] documented in this encounter [facility] 01-16-2024 Telephone encounter Note Refill to [facility] Evaluation note Diagnosis Onychomycosis- Primary Dermatophytosis of nail Onychodystrophy Other specified disease of nail Pain around toenail, right foot Pain around toenail, left foot [facility] Diagnosis Lymphangitis- Primary Lymphedema of both lower extremities Lymphedema of both lower extremities- Primary Essential hypertension- Primary Unspecified essential hypertension Pure hypercholesterolemia documented [facility]* Diagnosis Plantar wart, left foot- Primary Plantar wart Acquired keratoderma Left foot pain Pain in soft tissues of limb Difficulty walking Difficulty in walking [facility]* Diagnosis Chronic pain of right knee- Primary Pain of right lower extremity Lymphedema of both lower extremities Arthritis of left sacroiliac joint [facility] Diagnosis Lymphedema of both lower extremities documented [facility]* Diagnosis Lymphedema of both lower extremities- Primary Localized edema Edema Dyspnea on exertion Other dyspnea and respiratory abnormality [facility] Diagnosis Essential hypertension- Primary Unspecified essential hypertension Pure hypercholesterolemia Lymphedema of both lower extremities Cellulitis of right lower extremity S/P total knee arthroplasty, right documented [facility] this [facility]* Diagnosis Lymphedema of both lower extremities- Primary Essential hypertension Unspecified essential hypertension Pure hypercholesterolemia Cellulitis of right lower extremity [facility] Diagnosis Lymphedema of both lower extremities- Primary Essential hypertension Unspecified essential hypertension Cellulitis of right lower extremity [facility] Diagnosis Lymphangitis- Primary Lymphedema of both lower extremities [facility] Diagnosis Blister of right lower extremity without infection, initial encounter- Primary Cellulitis of right lower extremity Lymphedema of both lower extremities [facility] Diagnosis Cellulitis of right lower extremity- Primary [facility] Diagnosis Cellulitis of right lower extremity- Primary Lymphedema of both lower extremities [facility]* Diagnosis Cellulitis of right lower leg- Primary Chronic bronchitis, unspecified chronic bronchitis type ([facility]) Essential hypertension Unspecified essential hypertension Pure hypercholesterolemia Asthenia Other malaise and fatigue documented in this encounter [facility]* Diagnosis Lymphangitis- Primary Lymphedema of both lower extremities Cellulitis of right lower leg- Primary Lymphedema of both lower extremities [facility] Diagnosis Lymphangitis- Primary Lymphedema of both lower extremities Lymphedema of both lower extremities- Primary documented in [facility]* Diagnosis Lymphangitis- Primary Lymphedema of both lower extremities Lymphedema of both lower extremities- Primary Routine general medical examination at a health care facility- Primary Essential hypertension Unspecified essential hypertension Pure hypercholesterolemia Lymphedema of both lower extremities BMI 45.0-49.9, adult ([facility]) documented in this encounter [facility]* Diagnosis Lymphangitis- Primary Lymphedema of both lower extremities Lymphedema of both lower extremities- Primary Lymphedema of both lower extremities- Primary Cellulitis of right lower leg Arthritis of left sacroiliac joint Chronic bronchitis, unspecified chronic bronchitis type (CMS-HCC) BMI 45.0-49.9, adult ([facility]) Pure hypercholesterolemia Essential hypertension Unspecified essential hypertension [facility] Diagnosis Lymphangitis- Primary Lymphedema of both lower extremities Lymphedema of both lower extremities- Primary Lymphedema of both lower extremities- Primary Cellulitis of right lower leg [facility] Diagnosis Lymphangitis- Primary Lymphedema of both lower extremities Lymphedema of both lower extremities- Primary Lymphedema of both lower extremities- Primary Cellulitis of right lower leg [facility] Diagnosis Lymphangitis- Primary Lymphedema of [...] 49.9 in adult [facility]* Diagnosis Lymphangitis- Primary Lymphedema of both lower extremities Lymphedema of both lower extremities- Primary Lymphedema of both lower extremities- Primary Cellulitis of right lower leg [facility] Diagnosis Lymphangitis- Primary Lymphedema of both lower extremities Lymphedema of both lower extremities- Primary Nonrheumatic aortic valve stenosis- Primary [facility]* Diagnosis Bursitis of left foot- Primary Acquired keratoderma Left foot pain Pain in soft tissues of limb Difficulty walking Difficulty in walking [facility] Diagnosis Lymphangitis- Primary Lymphedema of both lower extremities Lymphedema of both lower extremities- Primary Other iron deficiency anemia- Primary [facility] Diagnosis Lymphangitis- Primary Lymphedema of both lower extremities Lymphedema of both lower extremities- Primary Other iron deficiency anemia [facility]* Diagnosis Onychomycosis- Primary Dermatophytosis of nail Onychodystrophy Other specified disease of nail Pain around toenail, right foot Pain around toenail, left foot [facility]* Diagnosis Lymphangitis- Primary Lymphedema of both lower extremities Lymphedema of both lower extremities- Primary Lymphedema of both lower extremities- Primary Cellulitis of right lower leg Cellulitis of left lower leg [facility] Diagnosis Lymphangitis- Primary Lymphedema of both lower extremities Lymphedema of both lower extremities- Primary Cellulitis of right lower leg- Primary Cellulitis of left lower leg Lymphedema of both lower extremities [facility]* Diagnosis Lymphangitis- Primary Lymphedema of both lower extremities Lymphedema of both lower extremities- Primary Insomnia due to medical condition- Primary Organic insomnia, unspecified [facility]* Diagnosis Plantar wart, left foot- Primary Plantar wart Acquired keratoderma Left foot pain Pain in soft tissues of limb Difficulty walking Difficulty in walking documented [facility]* Diagnosis Lymphangitis- Primary Lymphedema of both lower extremities Lymphedema of both lower extremities- Primary Lymphedema associated with obesity- Primary Essential hypertension Unspecified essential hypertension Chronic bronchitis, unspecified chronic bronchitis type ([facility]) Cellulitis of lower extremity, unspecified laterality documented in this encounter [facility] SystemInstructionsNot on filedocumented in this encounter [facility]* Attachments The following attachments cannot be sent through Care Everywhere. * Chronic Knee Pain (Australian) [facility]ructionsNot on file documented in this encounterPro[facility] SystemInstructionsNot on file documented in this encounter[facility] SystemInstructionsNot on file documented in this encounterPro[facility] SystemInstructionsNot on file documented in this encounterProMedin[facility] Health SystemInstructionsNot on file documented in [facility] System[facility]* Attachments The following attachments cannot be sent through Care Everywhere. * Lymphedema (Australian) documented in this encounterPro[facility] SystemInstructionsNot on file documented in this encounterProMedica Health SystemInstructionsNot on file documented in this encounterProMedica Health SystemInstructionsNot on file documented in this encounterProMedica Health SystemInstructionsNot on file documented in this encounterPro[facility] SystemInstructionsNot on file documented in this encounterProSelect [facility] Health SystemInstructionsNot on file documented in this encounterProSelect Specialty Hospital Health SystemInstructionsNot on file documented in this encounterC[facility] SystemInstructions* Attachments The following attachments cannot be sent through Care Everywhere. * Cellulitis (Skin Infection) Discharge Instructions, Adult (Australian) [facility] System[facility]* Attachments The following attachments cannot be sent through Care Everywhere. * Weakness ED (Australian) * Generalized Weakness (Australian) documented in this [facility] SystemInstructionsNot on file documented in this encounterC[facility] SystemInstructionsNot on file documented in this [facility] SystemInstructions* Attachments The following attachments cannot be sent through Care Everywhere. * Cellulitis (Skin Infection) Discharge Instructions, Adult (Australian) [facility] in [facility] System[facility]* Attachments The following attachments cannot be sent through Care Everywhere. * Cellulitis (Skin Infection) Discharge Instructions, Adult (Australian) documented in this [facility] SystemInstructions* Attachments The following attachments cannot be sent through Care Everywhere. * Cellulitis (Skin Infection) Discharge Instructions, Adult (Australian) documented in this encounterC[facility] SystemInstructionsNot on file documented in this encounter[facility] [employer] SystemInstructionsNot on file documented in this encounterC[facility] SystemInstructionsNot on file documented in this encounterC[facility] SystemInstructions* Attachments The following attachments cannot be sent through Care Everywhere. * Cellulitis (skin infection) in adults Discharge instructions (Australian) documented in [facility] encounterC[facility] SystemInstructionsNot on file documented in this [facility] SystemInstructionsNot on file documented in this [facility] SystemReason for referral (narrative)* Consultation (Routine) - Pending Review Specialty Diagnoses / Procedures Referred By Contact Referred To Contact Orthopedic Surgery / MED-SURG/ORTHOPEDICS Diagnoses Chronic pain of right knee Pain of right lower extremity Arthritis of left sacroiliac joint Megan Blank MD [address] [place] [address] Lesley Booth Jr., [address] [address] Referral ID Status Reason Start Date Expiration Date Visits Requested Visits Authorized [id number] Pending Review Specialty Services Required 03/11/2024 03/11/2025 1 1 [facility] (narrative)* Consultation (Routine) - Authorized Specialty Diagnoses / Procedures Referred By Cici fournier Referred To Contact Diagnoses Lymphedema of both lower extremities Megan Blank MD [address] [place] [address] [address] Referral ID Status Reason Start Date Expiration Date V isits Requested Visits Authorized [id number] Authorized 01/26/2024 01/25/2025 1 1 Scheduling Instructions [phone], [phone] * Cardiology (Routine) - Authorized Specialty Diagnoses / Procedures Referred By Cici fournier Referred To Contact Diagnoses Dyspnea on exertion Procedures Echo complete W/O contrast Megan Blank MD [address] [place] [address] [place] [address] [place] [address] Phone: [phone] Referral ID Status Reason Start Date Expiration Date V isits Requested Visits Authorized [id number] Authorized 01/26/2024 04/24/2024 1 1 * Vascular (Routine) - Pending Review Specialty Diagnoses / Procedures Referred By Cici fournier Referred To Contact Diagnoses Lymphedema of both lower extremities Localized edema Procedures Vas venous duplex lwr bilateral Megan Blank MD [address] [place] [address] [place] [address] [place] [address] Phone: [phone] Referral ID Status Reason Start Date Expiration Date V isits Requested Visits Authorized [id number] Pending Review 01/26/2024 01/25/2025 1 1 [facility] Consultation (Routine) - Authorized Specialty Diagnoses / Procedures Referred By Cici t Referred To Contact Rehabilitation Diagnoses S/P total knee arthroplasty, right Megan Blank MD [address] [place] [address] [facility] [address] [place] [address] Referral ID Status Reason Start Date Expiration Date Visits Requested Visits Authorized [id number] Authorized Specialty Services Required 06/04/2024 12/05/2024 12 12 [facility] (n[facility]ative)* Consultation (Routine) - Authorized Specialty Diagnoses / Procedures Referred By Cici t Referred To Contact Vascular Surgery Diagnoses Lymphedema of both lower extremities Megan Blank MD [address] [place] [address] Cesar Valle MD [address] [place] [address] Referral ID Status Reason Start Date Expiration Date Visits Requested Visits Authorized [id number] Authorized Specialty Services Required 06/15/2024 06/15/2025 1 1 * Consultation (Routine) - Authorized Specialty Diagnoses / Procedures Referred By Rubyac t Referred To Contact Diagnoses Lymphedema of both lower extremities Megan Blank MD [address] [place] [address] [address] Referral ID Status Reason Start Date Expiration Date V isits Requested Visits Authorized [id number] Authorized 06/15/2024 06/15/2025 1 1 [facility] (narrative)* Consultation (Routine) - Pending Review Specialty Diagnoses / Procedures Referred By Contac t Referred To Contact Wound Care Diagnoses Lymphedema of both lower extremities Cellulitis of right lower extremity Megan Blank MD [address] [place] [address] [facility] [address] [place] [address] Referral ID Status Reason Start Date Expiration Date Visits Requested Visits Authorized [id number] Pending Review Specialty Services Required 06/25/2024 06/25/2025 1 1 [facility] (narrative)* Consultation (Routine) - Pending Review Specialty Diagnoses / Procedures Referred By Contac t Referred To Contact Wound Care Diagnoses Lymphedema of both lower extremities Cesar Claire MD [address], [address] [address] [facility] [address] [place] [address] Referral ID Status Reason Start Date Expiration Date Visits Requested Visits Authorized [id number] Pending Review Specialty Services Required 06/24/2024 06/24/2025 1 1 * Consultation (Routine) - Pending Review Specialty Diagnoses / Procedures Referred By Contac t Referred To Contact Diagnoses Lymphedema of both lower extremities Cesar Claire MD [address], [address] [address] Referral ID Status Reason Start Date Expiration Date V isits Requested Visits Authorized [id number] Pending Review 06/24/2024 06/24/2025 1 1 [facility]Reason for referral (narrative)* Consultation (Routine) - Authorized Specialty Diagnoses / Procedures Referred By Contac t Referred To Contact Neurology Diagnoses Megan Atkins MD [address] [facility] [place] [address] Maury Garcia MD [address] [facility] [address] [place] [address] Referral ID Status Reason Start Date Expiration Date Visits Requested Visits Authorized [id number] Authorized Specialty Services Required 08/09/2024 08/09/2025 [facility] * Yessica Oh - 12/24/2019 2:15 PM EST [facility] Inpatient/Observation/Outpatient Rehabilitation Date: 12/24/2019 Patient Name: Royce Arizmendi [] Inpatient Acute/Observation [x] Outpatient : 1950 [...] Saucedo, PT - 12/28/2019 1:45 PM EST [facility] Outpatient Physical Therapy Daily Note Patient: Royce Arizmendi : 1950 CSN #: [id number] Referring Practitioner: Dr. 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 1: Pt will be safe and independent with his POC []Met []Partially met []Not met shelter goal 2: Pt will demonstrate and decreaed in BLE girth measurements by 2-3cm in order to increae ambulation tolerance []Met []Partially met []Not met shelter goal 3: Pt will report 70% improvement in symptoms []Met []Partially met []Not met []Met []Partially met []Not met []Met []Partially met []Not met Minutes Tracking: Time In: 1344 Time Out: 1422 Minutes: 38 Nelda Saucedo PT, DPT Date: 12/28/2019 documented in this encounter* Nelda Saucedo PT - 01/04/2020 2:00 PM EST [facility] Outpatient Physical Therapy Daily Note Patient: Royce Arizmendi : 1950 CSN #: [id number] Referring Practitioner: Dr. 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 goal 1: Pt will be safe and independent with his POC []Met []Partially met []Not met shelter goal 2: Pt will demonstrate and decreaed in BLE girth measurements by 2-3cm in order to increae ambulation tolerance []Met []Partially met []Not met middle or intermediate school principal goal 3: Pt will report 70% improvement in symptoms []Met []Partially met []Not met []Met []Partially met []Not met []Met []Partially met []Not met Minutes Tracking: Time In: 1356 Time Out: 1436 Minutes: 40 Nelda Saucedo PT, DPT Date: 01/04/2020 documented in this encounter* Nelda Saucedo, PT - 01/11/2020 1:15 PM EST [facility] Outpatient Physical Therapy Daily Note Patient: Royce Arizmendi : 1950 CSN #: [id number] Referring Practitioner: Dr. 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 goals : 6 weeks shelter goal 1: Pt will be safe and independent with his POC []Met []Partially met []Not met middle or intermediate school principal goal 2: Pt will demonstrate and decreaed in BLE girth measurements by 2-3cm in order to increae ambulation tolerance- progressing []Met []Partially met []Not met shelter goal 3: Pt will report 70% improvement in symptoms []Met []Partially met []Not met []Met []Partially met []Not met []Met []Partially met []Not met Minutes Tracking: Time In: 1306 Time Out: 1421 Minutes: 75 Nelda Saucedo PT, DPT Date: 01/11/2020 documented in this encounter* Yessica Oh - 01/18/2020 11:00 AM EST [facility] Inpatient/Observation/Outpatient Rehabilitation Date: 01/18/2020 Patient Name: Royce Arizmendi [] Inpatient Acute/Observation [x] Outpatient : 1950 [...] Jennifer Bonds - 01/24/2020 9:30 AM EDT [facility] Inpatient/Observation/Outpatient Rehabilitation Date: 01/24/2020 Patient Name: Royce Arizmendi [] Inpatient Acute/Observation [] Outpatient : 1950 [] Pt no showed for scheduled appointment [] Pt refused/declined therapy at this time due to: [x] Pt cancelled due to: [] No Reason Given [] Sick/ill [] Other: He said he had another appointment. Jennifer Bonds Date: 01/24/2020 documented in this encounter* Nelda Saucedo, PT - 01/14/2020 2:15 PM EST [facility] Outpatient Physical Therapy Daily Note Patient: Royce Arizmendi : 1950 CSN #: [id number] Referring Practitioner: Dr. John Christie Referral Date [...] pt required further clarification. 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 Frame for middle or intermediate school principal goals : 6 weeks shelter goal 1: Pt will be safe and independent with his POC []Met []Partially met []Not met shelter goal 2: Pt will demonstrate and decreaed in BLE girth measurements by 2-3cm in order to increae ambulation tolerance- progressing []Met []Partially met []Not met middle or intermediate school principal goal 3: Pt will report 70% improvement in symptoms []Met []Partially met []Not met []Met []Partially met []Not met []Met []Partially met []Not met Minutes Tracking: Time In: 1413 Time Out: 1444 Minutes: 31 Nelda Saucedo PT, DPT Date: 01/14/2020 documented in this encounter* Nelda Saucedo PT - 12/21/2019 2:45 PM EST [facility] Outpatient Physical Therapy Daily Note Patient: Royce Linda Ugo : 1950 CSN #: [id number] Referring Practitioner: Dr. 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 Frame for middle or intermediate school principal goals : 6 weeks shelter goal 1: Pt will be safe and independent with his POC []Met []Partially met []Not met shelter goal 2: Pt will demonstrate and decreaed in BLE girth measurements by 2-3cm in order to increae ambulation tolerance []Met []Partially met []Not met middle or intermediate school principal goal 3: Pt will report 70% improvement in symptoms []Met []Partially met []Not met []Met []Partially met []Not met []Met []Partially met []Not met Minutes Tracking: Time In: 1444 Time Out: 1536 Minutes: 52 Nelda Saucedo PT, DPT Date: 12/21/2019 documented in this encounter Advance Directives Documents on File Type Date Recorded Patient Sister Superior Expl anation Advance Directives and Living Will Power of Squadron Worker Date Activated Date Inactivated Comments 07/30/2024 7:52 [...] Referral Specialty Diagnoses / Procedures Referred By Contac t Referred To Contact Diagnoses Cellulitis of right lower extremity Procedures Opticell Alginate AG Jo Stone, CYTOGENETIC TECHNOLOGIST-[employer]IG[employer] SEALER [address] [place] [address] Referral ID Status Reason Start Date Expiration Date V isits Requested Visits Authorized [id number] Pending Review 07/02/2024 07/02/2025 1 1 Additional Source Comments (unrecognized sect ion and content) No Status Records FoundNo Status Records FoundNo Status Records FoundNo Status Records FoundNo Status Records FoundNo Status Records Found INFORMATION SOURCE (unrecogn ized section and content) DATE CREATED AUTHOR 04/28/2020 Kalpana delgado DATE CREATED AUTHOR AUTHOR'S ORGANIZ ATION 06/07/2024 [facility] DATE CREATED AUTHOR AUTHOR'S ORGANIZ ATION 07/18/2024 [facility] DATE CREATED AUTHOR AUTHOR'S ORGANIZ ATION 04/29/2025 [facility] DATE CREATED AUTHOR AUTHOR'S ORGANIZ ATION 07/26/2025 [facility] DATE CREATED AUTHOR AUTHOR'S ORGANIZ ATION 08/10/2025 [facility] Reason for Visit (unrecogniz ed section and content) Reason Comments Toenail Care Established pt prese nts today for nail and callus care. Pt relates being in hospital 3 times since April. SS: 14 Reason Comments Nail care Royce Arizmendi is a 74 y.o. male who presents for Toenail Care. Patient relates Left heel pain, states it feels like a plantars wart. SS: 14 Reason Comments Foot Pain Royce Arizmendi is a 74 y.o. male. Patient relates [...] of both lower extremities Megan Blank MD [address] [facility] [place] [address] Cesar Valle MD [facility] [place] [address] Referral ID Status Reason Start Date Expiration Date V isits Requested Visits Authorized [id number] Closed Specialty Services Required 06/15/2024 06/15/2025 1 1 Reason Comments Wound Check Specialty Diagnoses / Procedures Referred By Cici fournier Referred To Contact Wound Care Diagnoses Lymphedema of both lower extremities Cellulitis of right lower extremity Megan Blank MD [address] [place] [address] [facility] Op [address] [place] [address] Referral ID Status Reason Start Date Expiration Date Visits Requested Visits Authorized [id number] Pending Review Specialty Services Required 06/25/2024 06/25/2025 [...] MSC Restless Leg Reason Comments Callouses Royce Arizmendi is a 75 y.o. male. Pt is [...] SS: 15 Reason Comments Nail care Royce Arizmendi is a 75 y.o. male who presents for Nail care. Plantar wart left heel pain at this time. Patient relates he saw PCP today for cellulitis BL legs. He has been referred to return to Lymphedema clinic, starting back on his water pill and doxycycline. SS: 15 Reason Comments Cellulitis Reason Comments Follow-up Insomnia Reason Comments Foot Callouses Established patient presents today for concerns of continued pain with callus on left foot. Patient still taking antibiotics for cellulitis. Reason Comments Transition Of Care Care Teams (unrecognized sec tion and content) Sign Installer Relationship Specialty Start Date End Date Megan Blank MD [address] [place] [address] PCP - General Family Medicine 05/09/23 Sign Installer Relationship Specialty Start Date End Date Megan Blank MD [address] [address] PCP - General Family Medicine 05/25/24 PETROS PierreN, RN [facility] Nurse - [facility] 04/07/24 Sign Installer Relationship Specialty Start Date End Date Megan Blank MD [address] [place] [address] PCP - General Family Medicine 05/09/23 Sign Installer Relationship Specialty Start Date End Date Megan Blank MD [address] [place] [address] PCP - General Family Medicine 05/09/23 Sign Installer Relationship Specialty Start Date End Date Megan Blank MD [address] [place] [address] PCP - General Family Medicine 05/09/23 Sign Installer Relationship Specialty Start Date End Date Megan Blank MD [address] [place] [address] PCP - General Family Medicine 05/14/23 Sign Installer Relationship Specialty Start Date End Date Megan Blank MD [address] [place] [address] PCP - General Family Medicine 05/25/24 ALEJANDRA Pierre, RN [facility] Nurse - [facility] 04/07/24 Sign Installer Relationship Specialty Start Date End Date Megan Blank MD [address] [place] [address] PCP - General Family Medicine 05/25/24 ALEJANDRA Pierre, RN [facility] Nurse - [facility] 04/07/24 Sign Installer Relationship Specialty Start Date End Date Megan Blank MD [address] [place] [address] PCP - General Family Medicine 05/14/23 Eric Pineda RN [facility] Nurse - [facility] 04/07/24 Sign Installer Relationship Specialty Start Date End Date Megan Blank MD [address] [place] [address] PCP - General Family Medicine 05/14/23 Eric Pineda RN [facility] Nurse - [facility] 04/07/24 Sign Installer Relationship Specialty Start Date End Date Megan Blank MD [address] [address] PCP - General Family Medicine 05/14/23 Sign Installer Relationship Specialty Start Date End Date Megan Blank MD [address] [address] PCP - General Family Medicine 05/25/24 Eric Pineda RN [facility] Nurse - [facility] 04/07/24 Sign Installer Relationship Specialty Start Date End Date Megan Blank MD [address] [place] [address] PCP - General Family Medicine 05/25/24 Eric Pineda RN [facility] Nurse - [facility] 04/07/24 Sign Installer Relationship Specialty Start Date End Date Megan Blank MD [address] [place] [address] PCP - General Family Medicine 05/25/24 Eric Pineda RN [facility] Nurse - [facility] 04/07/24 Sign Installer Relationship Specialty Start Date End Date Megan Blank MD [address] [place] [address] PCP - General Family Medicine 05/25/24 Eric Pineda RN [facility]CM Nurse - [facility] 04/07/24 Sign Installer Relationship Specialty Start Date End Date Megan Blank MD [address] [place] [address] PCP - General Family Medicine 05/25/24 Eric Pineda RN [facility] Nurse - [facility] 04/07/24 Sign Installer Relationship Specialty Start Date End Date Megan Blank MD [address] [place] [address] PCP - General Family Medicine 05/25/24 Eric Pineda RN [facility] Nurse - [facility] 04/07/24 Sign Installer Relationship Specialty Start Date End Date Megan Blank MD [address] [place] [address] PCP - General Family Medicine 05/25/24 Eric Pineda RN [facility] Nurse - [facility] 04/07/24 Sign Installer Relationship Specialty Start Date End Date Megan Blank MD [address] [place] [address] PCP - General Family Medicine 05/25/24 Eric Pineda RN [facility] Nurse - [facility] 04/07/24 Sign Installer Relationship Specialty Start Date End Date Meagn Blank MD [address] [place] [address] PCP - General Family Medicine 05/14/23 Sign Installer Relationship Specialty Start Date End Date Megan Blank MD [address] [place] [address] PCP - General Family Medicine 05/25/24 Eric Pineda RN [facility] Nurse - [facility] 04/07/24 Sign Installer Relationship Specialty Start Date End Date Megan Blank MD [address] [place] [address] PCP - General Family Medicine 05/25/24 Eric Pineda RN [facility] Nurse - [facility] 04/07/24 Sign Installer Relationship Specialty Start Date End Date Megan Blank MD [address] [place] [address] PCP - General Family Medicine 05/25/24 Eric Pineda RN [facility] Nurse - [facility] 04/07/24 Sign Installer Relationship Specialty Start Date End Date Megan Blank MD [address] [place] [address] PCP - General Family Medicine 05/25/24 Eric Pineda RN [facility] Nurse - [facility] 04/07/24 Sign Installer Relationship Specialty Start Date End Date Megan Blank MD [address] [place] [address] PCP - General Family Medicine 05/25/24 Eric Pineda RN [facility] Nurse - [facility] 04/07/24 Sign Installer Relationship Specialty Start Date End Date Megan Blank MD [address] [place] [address] PCP - General Family Medicine 05/25/24 Eric Pineda RN [facility] Nurse - [facility] 04/07/24 Sign Installer Relationship Specialty Start Date End Date Megan Blank MD [address] [place] [address] PCP - General Family Medicine 05/25/24 Eric Pineda RN [facility] Nurse - [facility] 04/07/24 Sign Installer Relationship Specialty Start Date End Date Megan Blank MD [address] [place] [address] PCP - General Family Medicine 05/25/24 Eric Pineda RN [facility] Nurse - [facility] 04/07/24 Sign Installer Relationship Specialty Start Date End Date Megan Blank MD [address] [address] PCP - General Family Medicine 05/25/24 ALEJANDRA Pierre, RN [facility] Nurse - [facility] 04/07/24 Sign Installer Relationship Specialty Start Date End Date Megan Blank MD PCP - General Family Medicine 05/09/23 Sign Installer Relationship Specialty Start Date End Date Megan Blank MD PCP - General Family Medicine 05/09/23 Sign Installer Relationship Specialty Start Date End Date Megan Blank MD [address] [place] [address] PCP - General Family Medicine 05/25/24 ALEJANDRA Pierre, RN [facility] Nurse - [facility] 04/07/24 Sign Installer Relationship Specialty Start Date End Date Justino Gaspar MD [address] [place] [address] PCP - General Internal Medicine 02/21/25 ALEJANDRA Pierre, RN [facility] Nurse - [facility] 04/07/24 Sign Installer Relationship Specialty Start Date End Date Justino Gaspar MD [address] [place] [address] PCP - General Internal Medicine 02/21/25 ALEJANDRA Pierre, RN [facility] Nurse - [facility] 04/07/24 Sign Installer Relationship Specialty Start Date End Date Justino Gaspar MD [address] [place] [address] PCP - General Internal Medicine 02/21/25 ALEJANDRA Pierre, RN [facility] Nurse - [facility] 04/07/24 Sign Installer Relationship Specialty Start Date End Date Justino Gaspar MD [address] [place] [address] PCP - General Internal Medicine 02/21/25 ALEJANDRA Pierre, RN CCM Nurse - [facility] 04/07/24 Sign Installer Relationship Specialty Start Date End Date Justino Gaspar MD [address] [place] [address] PCP - General Internal Medicine 02/21/25 ALEJANDRA Pierre, RN CCM Nurse - [facility] 04/07/24 Sign Installer Relationship Specialty Start Date End Date Justino Gaspar MD [address] [place] [address] PCP - General Internal Medicine 02/21/25 ALEJANDRA Pierre, RN [facility] Nurse - [facility] 04/07/24 Sign Installer Relationship Specialty Start Date End Date Justino Gaspar MD [address] [place] [address] PCP - General Internal Medicine 02/21/25 ALEJANDRA Pierre, RN CCM Nurse - [facility] 04/07/24 Sign Installer Relationship Specialty Start Date End Date Justino Gaspar MD [address] [place] [address] PCP - General Internal Medicine 02/21/25 ALEJANDRA Pierre, RN [facility] Nurse - [facility] 04/07/24 Sign Installer Relationship Specialty Start Date End Date Justino Gaspar MD [address] [place] [address] PCP - General Internal Medicine 02/21/25 ALEJANDRA Pierre, RN [facility] Nurse - [facility] 04/07/24 Sign Installer Relationship Specialty Start Date End Date Justino Gaspar MD [address] [place] [address] PCP - General Internal Medicine 02/21/25 ALEJANDRA Pierre, RN [facility] Nurse - [facility] 04/07/24 Sign Installer Relationship Specialty Start Date End Date Justino Gaspar MD [address] [place] [address] PCP - General Family Medicine 07/11/25 Sign Installer Relationship Specialty Start Date End Date Justino Gaspar MD [address] [facility] [place] [address] PCP - General Family Medicine 07/11/25 Sign Installer Relationship Specialty Start Date End Date Justino Gaspar MD [address] [place] [address] PCP - General Internal Medicine 02/21/25 ALEJANDRA Pierre, RN [facility] Nurse - [facility] 04/07/24 Sign Installer Relationship Specialty Start Date End Date Justino Gaspar MD [address] [facility] [place] [address] PCP - General Family [facility] 07/11/25 Sign Installer Relationship Specialty Start Date End Date Justino Gaspar MD [address] [place] [address] PCP - General Internal Medicine 02/21/25 ALEJANDRA Pierre, RN [facility] Nurse - [employer] 04/07/24 FOR RECORDS PERTAINING TO PATIENTS WHO [...] BE BASED ON THE PRIMARY CLINICAL RECORDS. [facility]. provides no warranty or guarantee of the accuracy or completeness of information in this document.
[2025-08-23 09:48] LABS: Hematocrit 37.8 % (42.0-54.0); Hemoglobin 12.1 g/dL (14.0-18.0); Immature Granulocytes Abs Auto 0.01 10^3/uL (0.00-0.03); Immature Granulocytes Pct Auto 0.2 % (0.0-0.5); Lymphocytes Absolute Auto 1.0 10^3/uL (1.2-3.8); Mean Corpuscular HGB Conc 32.0 g/dL (29.9-35.2); Mean Corpuscular Hemoglobin 26.8 pg (25.9-34.0); Mean Corpuscular Volume 83.6 fL (80.0-94.0); Platelet Count 198 10^3/uL (150-450); Red Blood Count 4.52 10^6/uL (4.70-6.10); White Blood Count 5.7 10^3/uL (4.0-11.0)
[2025-08-23 10:38] LABS: Alanine Aminotransferase 50 U/L (16-63); Albumin Globulin Ratio 0.7; Albumin Level 3.1 g/dL (3.4-5.0); Alkaline Phosphatase 115 U/L (46-116); Anion Gap 15.1; Aspartate Amino Transferase 33 U/L (15-37); Blood Urea Nitrogen 20.0 mg/dL (7.0-18.0); Calcium 8.5 mg/dL (8.5-10.1); Carbon Dioxide 22.8 mmol/L (21.0-32.0); Chloride 105 mmol/L (98-107); Estimated GFR (African America >60 (>=60 mL/min/1.73m^2); Estimated GFR (Non-African Ame >60 (>=60 mL/min/1.73m^2); Globulin 4.4 g/dL; Glucose 150 mg/dL (74-106); Potassium 3.9 mmol/L (3.5-5.1); Sodium 139 mmol/L (136-145); Total Protein 7.5 g/dL (6.4-8.2)
== END 2025-08-23 09:13 | disposition home or self-care (01) ==
LOC: LAB 09:18
PROVIDERS: PCP Student in an Organized Health Care Education/Training Program; Visit Provider Student in an Organized Health Care Education/Training Program
DX: L03.119 Cellulitis of unspecified part of limb (principal)
CPT/HCPCS: 36415; 80053; 85025; 86140